=== PATIENT | male | born 1965 | race Two or more races ===

== ENCOUNTER 2021-02-08 22:28 | Inpatient (IN) | payer OTHER, SELFPAY ==
--- NOTE | ~2021-02-08 | XR_ITS ---
EXAMINATION: XR CHEST CLINICAL INFORMATION: Chest pain. COMPARISON: Chest radiograph dated from 04/15/2018. TECHNIQUE: AP view of the chest was obtained. FINDINGS: Unchanged appearance of the cardiomediastinal silhouette. Low lung volumes with bronchovascular crowding and subsegmental atelectasis. No focal consolidation, pleural effusion or pneumothorax. No acute osseous findings. XR/XR chest 1V IMPRESSION: Low lung volumes with bronchovascular crowding and subsegmental atelectasis. No focal infiltrates. No pleural effusions or pneumothorax.
[2021-02-08 22:43] VITALS: BP 144/109; BP 152/110; PULSE 109; PULSE 112; RESP 20; TEMP 36.9; O2SAT 94; O2SAT 98; BMI 54.2
--- NOTE | 2021-02-08 23:09 | ECG_ITS ---
Test Reason : CHEST PAIN Blood Pressure : / mmHG Vent. Rate : 107 BPM Atrial Rate : 107 BPM P-R Int : 150 ms QRS Dur : 110 ms QT Int : 360 ms P-R-T Axes : 043 -14 005 degrees QTc Int : 480 ms Sinus tachycardia Nonspecific T wave abnormality Abnormal ECG When compared with ECG of 07-FEB-2016 05:10, Vent. rate has increased BY 46 BPM T wave inversion less evident in Lateral leads Referred By: Bacilio Sandy Electronically Signed By:KARO ONTIVEROS
--- NOTE | 2021-02-08 23:11 | ED_ITS ---
HPI - Chest Pain General Chief Complaint: Chest Pain Stated Complaint: chest pain Time Seen by Provider: 02/08/21 23:09 History of Present Illness HPI narrative: Patient is a 55-year-old male with a history of diabetes, hypertension, high cholesterol. Positive history of smoking. Previous history of CVA. Presented today with having chest pain that started approximately 1-1/2 hours ago. The pain is dull in [place] to the arm is associated with shortness of breath. No coughing or congestion patient received his coronavirus vaccine over 2 weeks ago. No leg swelling. Positive history of CVA but there is no residual weakness. Patient from home. The pain started when patient was sitting. Denies any diaphoresis. History of similar pain when he was in [facility]. Patient claims he went to a hospital in [place] but he cannot recall the name of the hospital. They might have done a catheterization on him. He is not exactly sure but they put something inside him to take pictures of his heart. No leg swelling. No history of blood clots. No recent travel history. Patient appear s overweight at approximately 147 kilos. Patient is approximately 5 ft 5 in tall. His BMI is over 50. Related Data Allergies Allergy/AdvReac Type Severity Reaction Status Date / Time Penicillins [PCN] Allergy Unknown HIVES Unverified 01/25/20 16:31 Review of Systems Review of Systems: Positive chest pain Positive shortness of breath All systems reviewed otherwise negative [facility] Past Medical History Attestation statement: The following information was validated with the patient. Social History Social History Advance Directives: No Physical Exam Vital Signs: Vital Signs: Last Vital Signs Temp 98.4 F 02/08/21 22:43 Pulse 98 02/09/21 01:02 Resp 13 02/09/21 01:02 BP 135/102 H 02/09/21 01:02 Pulse Ox 93 02/09/21 01:02 Body Mass Index 54.2 Appearance: Alert. Oriented X3. No acute distress. Eyes: Pupils equal, round and reactive to light. ENT: Pharynx normal. Neck: Normal inspection. Neck supple. No lymph nodes noted. No crepitus CVS: Normal heart rate and rhythm. Pulses normal. Normal S1 and S2 Respiratory: No respiratory distress. Breath sounds normal. No Wheezing. No rales Abdomen: Soft and nontender. No rigidity. No distention. good BS x4 Skin: Skin warm and dry. Normal skin color. Normal skin turgor. Extremities: No lower extremity edema. Neurovascular intact to all extremities. No Lacerations. No Rash Neuro: Oriented X 3. No motor deficit. No sensory deficit. Moving all extermities. No slurred speech MDM - Chest Pain MDM Narrative Medical decision making narrative: Multiple cardiac risk factors including diabetes, hypertension, high cholesterol, smoking, previous stroke. Grossly overweight. Positive chest pain . Positive shortness of breath. EKG showed a sinus pattern heart rate was 80 VA QRS QT within normal limits there is nonspecific T-wave flattening noted. There is no old EKG to compare. Given ashley felder's age of 55 multiple cardiac risk factor positive troponin. Patient's heart score is greater than 3. Already given aspirin. Will admit for further evaluation. Currently in stable condition. Differential Diagnosis Differential diagnosis: Likely fracture of rib, pneumothorax, stable angina, unstable angina pectoris, atypical chest pain, st elevation myocardial infarction, costochondritis, chest pain and biliary colic Medical Records Data Attestation: I reviewed the patient's medical records. Lab Data Attestation: I reviewed the patient's lab results. Result diagrams: 02/08/21 23:37 02/08/21 23:37 Labs: Lab Results 02/08/21 02/08/21 02/08/21 Range/Units 23:37 23:37 23:37 WBC 10.2 (4.8-10.8) X10*3/uL RBC 4.88 (4.60-5.80) X10*6/uL Hgb 13.6 L (14.0-18.0) g/dl Hct 43.9 (42-52) % MCV 90.0 (80-98) fL MCH 27.9 (27.0-33.0) pg MCHC 31.0 (31.0-36.0) g/dl RDW 13.4 (11.0-16.0) % Plt Count 216 (160-400) X10*3/uL MPV 11.1 (9.4-12.4) fL Immature Gran % (Auto) 0.4 (0.0-0.4) % Neut % (Auto) 67.2 (45-73) % Lymph % (Auto) 23.3 (20-40) % Marathon % (Auto) 8.7 (2-11) % Eos % (Auto) 0.3 (0-4) % Baso % (Auto) 0.1 (0-2) % Lymph # (Auto) 2.4 (1.2-4.9) X10*3/uL Marathon # (Auto) 0.9 (0.1-1.2) X10*3/uL Eos # (Auto) 0.0 (0.0-0.4) X10*3/uL Baso # (Auto) 0.0 (0.0-0.2) X10*3/uL Abs Immat Gran (auto) 0.04 H (0.00-0.03) X10*3/uL Absolute Neuts (auto) 6.8 (2.0-8.3) X10*3/uL Absolute Nucleated RBC 0.000 (0.0-0.012) X10*3/uL Nucleated RBC % (auto) 0.0 (0.0-0.2) /100WBC Sodium 140 (135-145) mmol/L Potassium 4.3 (3.3-5.1) mmol/L Chloride 105 (96-108) mmol/L Carbon Dioxide 23 (22-29) mmol/L Anion Gap 16 (12-20) BUN 19 H (9-16) mg/dL Creatinine 1.31 (0.5-1.4) mg/dL Estim Creat Clear Calc 86.5 Estimated GFR 57 Random Glucose 325 H (60-115) mg/dL Calcium 9.6 (8.4-10.2) mg/dL Troponin I High Sens 56.0 H* (<3.5-35.0) ng/L Discharge Plan Discharge Clinical Impression: Chest pain Patient Disposition: Admitted As Inpatient
--- NOTE | 2021-02-08 23:20 | PC.NURSE ---
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
[2021-02-08 23:41] LABS: MANUAL DIFF FLAG NO
[2021-02-08 23:42] LABS: Basophils Percent Auto 0.1 % (0-2); Eosinophils Percent Auto 0.3 % (0-4); Hematocrit 43.9 % (42-52); Hemoglobin 13.6 g/dl (14.0-18.0); Imm Gran Abs Auto 0.04 X10*3/uL (0.00-0.03); Imm Gran Pct Auto 0.4 % (0.0-0.4); Lymphocytes Absolute Auto 2.4 X10*3/uL (1.2-4.9); Lymphocytes Percent Auto 23.3 % (20-40); Mean Corpuscular Hemoglobin 27.9 pg (27.0-33.0); Mean Platelet Volume 11.1 fL (9.4-12.4); Monocytes Absolute Auto 0.9 X10*3/uL (0.1-1.2); Monocytes Percent Auto 8.7 % (2-11); Neutrophils Absolute Auto 6.8 X10*3/uL (2.0-8.3); Neutrophils Percent Auto 67.2 % (45-73); Platelet Count 216 X10*3/uL (160-400); Red Blood Count 4.88 X10*6/uL (4.60-5.80); Red Cell Distribution Width 13.4 % (11.0-16.0); White Blood Count 10.2 X10*3/uL (4.8-10.8)
[2021-02-09] VITALS (8 sets, daily range): BP systolic 117–148; BP diastolic 66–102; PULSE 73–98; RESP 11–20; TEMP 36.1–37; O2SAT 93–95; BMI 54.2
[2021-02-09 00:02] LABS: Anion Gap 16 (12-20); Blood Urea Nitrogen 19 mg/dL (9-16); Calcium 9.6 mg/dL (8.4-10.2); Carbon Dioxide 23 mmol/L (22-29); Chloride 105 mmol/L (96-108); Creatinine Clr Calc Pharmacy 86.5; Estimated Glomerular Filt Rate 57; Glucose Random 325 mg/dL (60-115); Potassium 4.3 mmol/L (3.3-5.1); Sodium 140 mmol/L (135-145)
[2021-02-09 01:30] LABS: COVID-19 Test Negative (Negative); IDNOW Serial# 9DD0AD1C
--- NOTE | 2021-02-09 02:35 | PM.IMHP ---
History of Present Illness Date of Service: 02/09/21 Chief Complaint: chest pain 55 year old male morbidly obesse with HTN controlled with Lisinopril,, Diabetes non insulin dependent on oral meds, HLD on no meds, history of CVA no details and has no residual effect, recently got of [facility], and smokes cigaretttes. He presents with chest pain onset the evening of prior day. He describes dull pain that at some point was so severe that he voided on himself. He had associated shortness of breath. No nausea, or diaphoressis, pain radiates to arms. ECG shows non-specific Ts, no old ECGs for comparaison. Initial troponin I is 54. Pain is since given aspirin. He states that he has has had similar eopisode in the past and had work up in [place] but not sure what hospital or what was done Review of Systems Review of Systems: Gen: no fever Resp: no sob, no cough CV: +chest, no DAY, no leg edema GI: No n/v, no abd pain Neuro: No confusion Yes all other systems are reviewed and are negative [facility] Medical History (Updated 02/09/21 @ 02:47 by Bacilio Sandy MD) Diabetes History of CVA (cerebrovascular accident) HTN (hypertension) Morbid obesity Family History (Updated 02/09/21 @ 02:37 by Bacilio Sandy MD) Other CAD (coronary artery disease) Diabetes HTN (hypertension) Pertinent family history: . Social History Advance Directives: No Meds Allergies Allergy/AdvReac Type Severity Reaction Status Date / Time Penicillins [PCN] Allergy Unknown HIVES Unverified 01/25/20 16:31 Active Medications: Current Medications Pharmacy Consult (Consult Rx Perform Med Rec) 1 each MISCELLANE ONCE PRN PRN Reason: Consult order Home Medications Medication Instructions Recorded Confirmed Last Taken Type amitriptyline 50 mg tablet 50 mg PO DAILY 02/09/21 02/09/21 02/08/21 History ertugliflozin 15 mg tablet 15 mg PO QAM 02/09/21 02/09/21 02/08/21 History furosemide 20 mg tablet 20 mg PO DAILY 02/09/21 02/09/21 02/08/21 History glyburide 5 mg tablet 5 mg PO DAILY 02/09/21 02/09/21 02/08/21 History lisinopril 20 mg tablet 20 mg PO DAILY 02/09/21 02/09/21 02/08/21 History Physical Exam Vital Signs and Narrative: Vital Signs: Last Vital Signs Temp 98.4 F 02/08/21 22:43 Pulse 98 02/09/21 01:02 Resp 13 02/09/21 01:02 BP 135/102 H 02/09/21 01:02 Pulse Ox 93 02/09/21 01:02 Body Mass Index 54.2 Constitutional Awake and Alert, No apparent distress HEENT anicteric Neck Supple, No lymphadenopathy Cardiovascular RRR, No M/R/G, S1 S2, No S3 S4, No pedal edema Respiratory Lungs clear, No respiratory distress Gastrointestinal Non tender, Non-distended Skin No rash Neurological Alert & oriented x3 Psychological Appropriate affect Results Labs CBC and Chem 7: 02/08/21 23:37 02/08/21 23:37 Imaging Radiologist's Impressions: Impressions Chest X-Ray 02/08/21 23:09 IMPRESSION: Low lung volumes with bronchovascular crowding and subsegmental atelectasis. No focal infiltrates. No pleural effusions or pneumothorax. Assessment and Plan (1) Unstable angina: Status: Acute 55 year male with morbidly obesse with HTN, HLD, DM here with chest pain and elevated troponin, but no acute ECG changes. 1/ Chest pain--with mild increase in troponin -ASA, metoprolol, and lovenox if next troponin also high -check lipid, and add Statin -Cardiology evaluation for need for further risk strtification 2/ Diabetes--continue glyburide, SSI, 3/ HTN--continue Lisinopril, adding low dose BB 4/ HLD--check lipid 5/ Morbid obesity weight loss encouraged by diet watch and exercise DVT prophylaxis--lovenox Quality Stroke Does the patient have a stroke diagnosis?: No VTE Prior VTE?: No VTE Risk Level:: Medical - moderate - high VTE Device Contraindication: Treatment Not Indicated VTE Drug Contraindication: N/A - Med Ordered
[2021-02-09 04:09] LABS: Troponin-I High Sensitivity 45.7 ng/L (<3.5-35.0)
--- NOTE | 2021-02-09 06:00 | ECG_ITS ---
Test Reason : CHEST PAIN Blood Pressure : / mmHG Vent. Rate : 095 BPM Atrial Rate : 095 BPM P-R Int : 162 ms QRS Dur : 120 ms QT Int : 412 ms P-R-T Axes : 060 -13 -57 degrees QTc Int : 517 ms Normal sinus rhythm Non-specific intra-ventricular conduction delay T wave abnormality, consider anterolateral ischemia Abnormal ECG When compared with ECG of 08-FEB-2021 22:52, T wave inversion now evident in Anterior leads T wave inversion more evident in Lateral leads Referred By: Bacilio Sandy Electronically Signed By:KARO ONTIVEROS
[2021-02-09 07:23] LABS: Glucose, Whole Blood 294 mg/dL (60-115)
[2021-02-09 07:23] LABS: Cholesterol 142 mg/dL; HDL Cholesterol 34 mg/dL; LDL Cholesterol Calculated 83 mg/dl; Triglycerides 129 mg/dL
[2021-02-09] MEDS: Insulin Lispro 100 UNIT/ML 3 ML VIAL SUBCUT ×4 (07:49→21:23)
[2021-02-09] MEDS: Metoprolol Tartrate 25 MG TABLET PO (09:35)
[2021-02-09] MEDS: Enoxaparin Sodium 40 MG/0.4 ML SYRINGE SUBCUT (09:35)
[2021-02-09] MEDS: Aspirin 81 MG TAB.CHEW PO (09:38)
[2021-02-09] MEDS: Atorvastatin Calcium 40 MG TABLET PO ×2 (09:38→21:23)
[2021-02-09] MEDS: lisinopriL 20 MG TABLET PO (09:39)
[2021-02-09] MEDS: Furosemide 20 MG TABLET PO (09:39)
[2021-02-09] MEDS: 0.9 % Sodium Chloride Flush 3 ML SYRINGE IVFLUSH ×3 (09:40→21:24)
[2021-02-09] MEDS: glyBURIDE 5 MG TABLET PO (09:56)
[2021-02-09] MEDS: Amitriptyline HCl 50 MG TABLET PO (09:56)
--- NOTE | 2021-02-09 12:17 | PM.CNCAR ---
History of Present Illness History of Present Illness Date of Service: 02/09/21 Chief complaint: chest pain Narrative: This is a cardiology consultation regarding chest pain. This is a 55-year-old male with a history of hypertension, diabetes, high lipids, history of stroke, smoking, obesity presenting with chest pain. He just recently got [place] [facility] but states was still taking meds even while inside. He also uses drugs and and states that he recently used heroin. Denies any cocaine use. Presentation is chest pain on the left side with and without exertion. No known coronary disease but he has a cardiomyopathy from prior echocardiogram and stress test. Review of Systems Review of Systems: Yes all other systems are reviewed and are negative Cardiovascular: Cardiovascular: Reports as per HPI, Reports no additional cardiovascular complaints, Denies acrocyanosis, Denies cool extremities, Denies painful fingertips, Reports chest pain, Reports chest pain at rest, Denies diaphoresis, Denies syncope, Denies irregular heart rhythm, Denies claudication, Denies leg edema, Denies lightheadedness, Denies palpitations and Denies dyspnea Respiratory: Respiratory: Denies dyspnea Neurologic: Denies syncope Endocrine: Endocrine: Denies palpitations [facility] Past Medical History Medical History (Updated 02/09/21 @ 12:23 by Salo Shankar MD) Diabetes History of CVA (cerebrovascular accident) HTN (hypertension) Morbid obesity Family History Family History (Updated 02/09/21 @ 02:37 by Bacilio Sandy MD) Other CAD (coronary artery disease) Diabetes HTN (hypertension) Social History Social History (Updated 02/09/21 @ 12:29 by Salo Shankar MD) Substance Use Type: Crack/Cocaine and Heroin Advance Directives: No Meds Allergies Allergy/AdvReac Type Severity Reaction Status Date / Time Penicillins [PCN] Allergy Unknown HIVES Unverified 01/25/20 16:31 Active Medications: Current Medications Acetaminophen (Acetaminophen 325 Mg Tablet) 650 mg PO Q6H PRN PRN Reason: Pain, Mild (Pain Scale 1-3) Al Hydroxide/Mg Hydroxide (Magnesium Hydrox/Alum Hydrox 30 Ml Oral.Susp) 30 ml PO Q4H PRN PRN Reason: Heartburn/Nausea Amitriptyline HCl (Amitriptyline Hcl 50 Mg Tablet) 50 mg PO DAILY JAMIE Last Admin: 02/09/21 09:56 Dose: 50 mg Documented by: Aspirin (Aspirin 81 Mg Tab.Chew) 81 mg PO DAILY [facility] Last Admin: 02/09/21 09:38 Dose: 81 mg Documented by: Atorvastatin Calcium (Atorvastatin Calcium 40 Mg Tablet) 40 mg PO BEDTIME [facility] Last Admin: 02/09/21 09:38 Dose: 40 mg Documented by: Enoxaparin Sodium (Enoxaparin Sodium 40 Mg/0.4 Ml Syringe) 40 mg SUBCUT DAILY [facility] Last Admin: 02/09/21 09:35 Dose: 40 mg Documented by: Furosemide (Furosemide 20 Mg Tablet) 20 mg PO DAILY [facility]; Protocol Last Admin: 02/09/21 09:39 Dose: 20 mg Documented by: Glyburide (Glyburide 5 Mg Tablet) 5 mg PO DAILY [facility] Last Admin: 02/09/21 09:56 Dose: 5 mg Documented by: Insulin Human Lispro (Insulin Lispro 100 Unit/Ml 3 Ml Vial) 0 unit SUBCUT QIDACHS [facility]; Protocol Last Admin: 02/09/21 11:55 Dose: 6 unit Documented by: Lisinopril (Lisinopril 20 Mg Tablet) 20 mg PO DAILY [facility]; Protocol Last Admin: 02/09/21 09:39 Dose: 20 mg Documented by: Melatonin (Melatonin 3 Mg Tablet) 6 mg PO BEDTIME PRN PRN Reason: Insomnia Metoprolol Tartrate (Metoprolol Tartrate 25 Mg Tablet) 25 mg PO BID [facility]; Protocol Last Admin: 02/09/21 09:35 Dose: 25 mg Documented by: Non-Formulary Medication (Ertugliflozin) 15 mg PO DAILY [facility] Sodium Chloride (0.9 % Sodium Chloride Flush 3 Ml Syringe) [facility] Last Admin: 02/09/21 09:40 Dose: 3 ml Documented by: Sodium Chloride (0.9 % Sodium Chloride Flush 3 Ml Syringe) [facility] Last Admin: 02/09/21 09:40 Dose: 3 ml Documented by: Home Medications Medication Instructions Recorded Confirmed Last Taken Type amitriptyline 50 mg tablet 50 mg PO DAILY 02/09/21 02/09/21 02/08/21 History ertugliflozin 15 mg tablet 15 mg PO QAM 02/09/21 02/09/21 02/08/21 History furosemide 20 mg tablet 20 mg PO DAILY 02/09/21 02/09/21 02/08/21 History glyburide 5 mg tablet 5 mg PO DAILY 02/09/21 02/09/21 02/08/21 History lisinopril 20 mg tablet 20 mg PO DAILY 02/09/21 02/09/21 02/08/21 History Physical Exam Vital Signs: Vital Signs: Last Vital Signs Temp 98.4 F 02/08/21 22:43 Pulse 82 02/09/21 11:57 Resp 11 L 02/09/21 11:57 BP 127/97 H 02/09/21 11:57 Pulse Ox 93 02/09/21 11:57 Body Mass Index 54.2 Const: General: cooperative and no acute distress HENMT: Other: Unremarkable Neck: Neck: Yes normal visual inspection Chest: Chest palpation & inspection: normal inspection of the chest Resp: Auscultation: wheezes Cardio: Jugular venous distension: no JVD Palpation: normal PMI Heart sounds: S1 normal heart sound present, S2 normal heart sound present, no gallops, no murmurs and no rubs GI: Palpation (GI): Soft to palpation Back/Spine/Pelvis: Other: unremarkable Skin: General skin exam: no rashes or lesions noted Neuro: Cranial nerves: Yes Other cranial nerve findings present Extrem: General: Yes no clubbing, cyanosis or edema Psych: Mental Status: other Results Labs and Meds Result diagrams: 02/08/21 23:37 02/08/21 23:37 Lab results: Laboratory Results - last 24 hr 02/08/21 02/08/21 02/08/21 23:37 23:37 23:37 WBC 10.2 RBC 4.88 Hgb 13.6 L Hct 43.9 MCV 90.0 MCH 27.9 MCHC 31.0 RDW 13.4 Plt Count 216 MPV 11.1 Immature Gran % (Auto) 0.4 Neut % (Auto) 67.2 Lymph % (Auto) 23.3 Anderson % (Auto) 8.7 Eos % (Auto) 0.3 Baso % (Auto) 0.1 Lymph # (Auto) 2.4 Anderson # (Auto) 0.9 Eos # (Auto) 0.0 Baso # (Auto) 0.0 Abs Immat Gran (auto) 0.04 H Absolute Neuts (auto) 6.8 Absolute Nucleated RBC 0.000 Nucleated RBC % (auto) 0.0 Sodium 140 Potassium 4.3 Chloride 105 Carbon Dioxide 23 Anion Gap 16 BUN 19 H Creatinine 1.31 Estim Creat Clear Calc 86.5 Estimated GFR 57 POC Glucose Random Glucose 325 H Calcium 9.6 Troponin I High Sens 56.0 H* Triglycerides Cholesterol LDL Cholesterol, Calc HDL Cholesterol COVID-19 ([facility]) COVID-19 Clin Com 02/09/21 02/09/21 02/09/21 01:04 03:44 06:48 WBC RBC Hgb Hct MCV MCH MCHC RDW Plt Count MPV Immature Gran % (Auto) Neut % (Auto) Lymph % (Auto) Anderson % (Auto) Eos % (Auto) Baso % (Auto) Lymph # (Auto) Anderson # (Auto) Eos # (Auto) Baso # (Auto) Abs Immat Gran (auto) Absolute Neuts (auto) Absolute Nucleated RBC Nucleated RBC % (auto) Sodium Potassium Chloride Carbon Dioxide Anion Gap BUN Creatinine Estim Creat Clear Calc Estimated GFR POC Glucose Random Glucose Calcium Troponin I High Sens 45.7 H* Triglycerides 129 Cholesterol 142 LDL Cholesterol, Calc 83 HDL Cholesterol 34 COVID-19 ([facility]) Negative COVID-19 Clin Com See Note 02/09/21 07:19 WBC RBC Hgb Hct MCV MCH MCHC RDW Plt Count MPV Immature Gran % (Auto) Neut % (Auto) Lymph % (Auto) Anderson % (Auto) Eos % (Auto) Baso % (Auto) Lymph # (Auto) Anderson # (Auto) Eos # (Auto) Baso # (Auto) Abs Immat Gran (auto) Absolute Neuts (auto) Absolute Nucleated RBC Nucleated RBC % (auto) Sodium Potassium Chloride Carbon Dioxide Anion Gap BUN Creatinine Estim Creat Clear Calc Estimated GFR POC Glucose 294 H Random Glucose Calcium Troponin I High Sens Triglycerides Cholesterol LDL Cholesterol, Calc HDL Cholesterol COVID-19 ([facility]) COVID-19 Clin Com ECG Interpretation: EKG with sinus rhythm at 95/Min; inverted T-waves across the precordial leads. Could be from hypertension. Ischemia cannot be excluded. This was seen before. Imaging Radiologist's impression: Impressions Chest X-Ray 02/08/21 23:09 IMPRESSION: Low lung volumes with bronchovascular crowding and subsegmental atelectasis. No focal infiltrates. No pleural effusions or pneumothorax. Assessment and Plan (1) Chest pain: Status: Acute (2) NICM (nonischemic cardiomyopathy): Status: Acute (3) Morbid obesity: Status: Acute (4) Essential hypertension: Status: Acute (5) Type 2 diabetes mellitus with unspecified complications: Status: Acute Order cardiac studies reviewed. Echocardiogram in 2016 had shown LVEF of 30-35%. Myocardial perfusion imaging study at that time did not show any ischemia. Currently, hs troponins are 56 and 47. In the past, tox screen was positive for cocaine, but denies using it and states he only heroin. We can recheck a tox screen. Echocardiogram tomorrow. If continues to cocaine +ve, then unable to use beta blockers. In that case, can start Norvasc for BP. Had uncontrolled diastolic BP on arrival. Previous ischemia work up negative. If continued symptoms after control of BP, drug avoidance, then could consider repeating. Procedures Date of Service Date of Service: 02/09/21
[2021-02-09 13:33] LABS: Glucose, Whole Blood 297 mg/dL (60-115)
--- NOTE | 2021-02-09 14:29 | PM.EVENT ---
Event Note Date of Service: 02/09/21 Event Note: day hospitalist update S ongoing chest pressure, moderate, L-sided, nonradiating O BP 127/97 P 82 R 11 SaO2 93 on RA gen NAD lungs CTAB CV RRR no m/r/g abd soft/NT/obese ext no edema neuro chronic L-sided weakness A/P 55yo M with DM2, HTN, HLD, prior CVA, obesity presenting with chest pain, mildly increased troponin # chest pain - ASA, metoprolol, statin - Cardiology consulted, TTE - Utox, if cocaine positive [was in 2019], d/c B-laura # HTN - lisinopril, metoprolol # HLD - statin # DM2 - glyburide, correction-dose lispro # morbid obesity - weight loss # VTE ppx - LMWH
[2021-02-09 16:14] LABS: Glucose, Whole Blood 256 mg/dL (60-115)
[2021-02-09 17:48] LABS: Amphetamine Screen Urine Not Detected (Not Detect); Barbiturates, Urine Not Detected (Not Detect); Benzodiazepines Screen Urine Not Detected (Not Detect); Cannabinoid Screen Urine Not Detected (Not Detect); Cocaine Screen Urine POSITIVE (Not Detect); Fentanyl, urine POSITIVE (Not Detect); Opiate Screen Urine POSITIVE (Not Detect); Phencyclidine Screen Urine Not Detected (Not Detect)
--- NOTE | 2021-02-09 19:24 | MHC.CARE ---
CARE team consult received. Recovery support team will be notified and meet with patient on Wednesday.
[2021-02-09 20:00] LABS: Glucose, Whole Blood 297 mg/dL (60-115)
[2021-02-09] MEDS: Acetaminophen 325 MG TABLET 650 MG PO (21:23)
[2021-02-09] MEDS: Melatonin 3 MG TABLET 6 MG PO (21:23)
[2021-02-10] VITALS (8 sets, daily range): BP systolic 101–137; BP diastolic 54–76; PULSE 74–96; RESP 17–22; TEMP 36.2–37; O2SAT 91–96
[2021-02-10 03:40] LABS: Estimated Average Glucose 295 mg/dL; Hemoglobin A1c % 11.9 %
[2021-02-10 07:42] LABS: Glucose, Whole Blood 219 mg/dL (60-115)
[2021-02-10] MEDS: Aspirin 81 MG TAB.CHEW PO (08:16)
[2021-02-10] MEDS: Amitriptyline HCl 50 MG TABLET PO (08:16)
[2021-02-10] MEDS: Furosemide 20 MG TABLET PO (08:16)
[2021-02-10] MEDS: lisinopriL 20 MG TABLET PO (08:16)
[2021-02-10] MEDS: Enoxaparin Sodium 40 MG/0.4 ML SYRINGE SUBCUT (08:16)
[2021-02-10] MEDS: 0.9 % Sodium Chloride Flush 3 ML SYRINGE IVFLUSH ×3 (08:17→21:16)
[2021-02-10] MEDS: Insulin Lispro 100 UNIT/ML 3 ML VIAL SUBCUT ×4 (08:17→21:15)
[2021-02-10] MEDS: glyBURIDE 5 MG TABLET PO (08:18)
--- NOTE | 2021-02-10 09:45 | MHC.CM.PN ---
Addendum entered by Aliya Darnell 02/10/21 11:16: [place] [facility] [place] IS WHERE THE PATIENT HAS BEEN STAYING. Office [address] [facility] [phone]. [address] FOR TRANSPORT [address] Addendum entered by Aliya Darnell 02/10/21 10:19: A HCP IS DOCUMENTED 01/2016, KRYSTEN ABERNATHY [phone] Original Note: Male 55 dx Chest pain. @ admission the patient was interviewed by this instructional writer. A stonemason helper was used to communicate. He was seen for the purpose of discharge planning. He is A+OX3. Patient reports that [facility], and was dropped off @ a [facility]p in [place]. He does not have contact info for usp. A call was placed to [facility]. A detailed VM was left for a hotel valet attendant, Sherri Olivares. [facility] CM contact info provided for [facility]. He reports using a walker. He declined info re HCP. Care team consult anticipated today. Alerted janitorial cleaner of patient and care team consult. CM will follow.
--- NOTE | 2021-02-10 10:19 | P.PNIM_ITS ---
Subjective Subjective Date of Service: 02/10/21 Interval History: ongoing chest pain 12/17- pressure-type did not deliberately use cocaine but heroin may have been contaminated agreeable to go on Suboxone Review of Systems Review of Systems: Yes all other systems are reviewed and are negative Physical Exam Vital Signs: Vital Signs: Last Vital Signs Temp 98.6 F 02/10/21 07:36 Pulse 74 02/10/21 08:16 Resp 22 H 02/10/21 07:36 BP 124/58 L 02/10/21 08:16 Pulse Ox 96 02/10/21 07:36 Body Mass Index 54.2 Gen: in no acute distress HEENT: sclera anicteric, moist mucus membranes Neck: supple Lungs: clear to auscultation bilaterally Heart: regular rate and rhythm, no murmurs Abd: soft, morbidly obese, non-tender, non-distended Ext: no edema Skin: warm/well-perfused Neuro: alert and oriented x3, L side weak from prior CVA Psych: appropriate affect Objective Data Active Medications Acetaminophen (Acetaminophen 325 Mg Tablet) 650 mg PO Q6H PRN PRN Reason: Pain, Mild (Pain Scale 1-3) Last Admin: 02/09/21 21:23 Dose: 650 mg Documented by: JEFERSON Al Hydroxide/Mg Hydroxide (Magnesium Hydrox/Alum Hydrox 30 Ml Oral.Susp) 30 ml PO Q4H PRN PRN Reason: Heartburn/Nausea Amitriptyline HCl (Amitriptyline Hcl 50 Mg Tablet) 50 mg PO DAILY [facility] Last Admin: 02/10/21 08:16 Dose: 50 mg Documented by: MURIEL Aspirin (Aspirin 81 Mg Tab.Chew) 81 mg PO DAILY [facility] Last Admin: 02/10/21 08:16 Dose: 81 mg Documented by: MURIEL Atorvastatin Calcium (Atorvastatin Calcium 40 Mg Tablet) 40 mg PO BEDTIME [facility] Last Admin: 02/09/21 21:23 Dose: 40 mg Documented by: JEFERSON Diltiazem HCl (Diltiazem Hcl 30 Mg Tablet) 30 mg PO QID [facility]; Protocol Enoxaparin Sodium (Enoxaparin Sodium 40 Mg/0.4 Ml Syringe) 40 mg SUBCUT DAILY [facility] Last Admin: 02/10/21 08:16 Dose: 40 mg Documented by: MURIEL Furosemide (Furosemide 20 Mg Tablet) 20 mg PO DAILY [facility]; Protocol Last Admin: 02/10/21 08:16 Dose: 20 mg Documented by: MURIEL Glyburide (Glyburide 5 Mg Tablet) 5 mg PO DAILY [facility] Last Admin: 02/10/21 08:18 Dose: 5 mg Documented by: MURIEL Insulin Human Lispro (Insulin Lispro 100 Unit/Ml 3 Ml Vial) 0 unit SUBCUT QIDACHS [facility]; Protocol Last Admin: 02/10/21 08:17 Dose: 4 unit Documented by: MURIEL Lisinopril (Lisinopril 20 Mg Tablet) 20 mg PO DAILY [facility]; Protocol Last Admin: 02/10/21 08:16 Dose: 20 mg Documented by: MURIEL Melatonin (Melatonin 3 Mg Tablet) 6 mg PO BEDTIME PRN PRN Reason: Insomnia Last Admin: 02/09/21 21:23 Dose: 6 mg Documented by: JEFERSON Non-Formulary Medication (Ertugliflozin) 15 mg PO DAILY [facility] Sodium Chloride (0.9 % Sodium Chloride Flush 3 Ml Syringe) 3 ml IVFLUSH QSHIFT [facility] Last Admin: 02/10/21 08:17 Dose: 3 ml Documented by: MURIEL Sodium Chloride (0.9 % Sodium Chloride Flush 3 Ml Syringe) 3 ml IVFLUSH [facility] Last Admin: 02/10/21 08:18 Dose: Not Given Documented by: MURIEL Non-Admin Reason: Duplicate Order Labs CBC & Chem 7: 02/08/21 23:37 02/08/21 23:37 Labs: Laboratory Results - last 24 hr 02/08/21 02/09/21 02/09/21 23:37 11:51 16:08 POC Glucose 297 H 256 H Estimat Average Glucose 295 Hemoglobin A1c % 11.9 Urine Opiates Screen Urine Fentanyl Screen Ur Barbiturates Screen Ur Phencyclidine Scrn Ur Amphetamines Screen U Benzodiazepines Scrn Urine Cocaine Screen U Marijuana (THC) Screen 02/09/21 02/09/21 02/10/21 16:31 19:54 07:19 POC Glucose 297 H 219 H Estimat Average Glucose Hemoglobin A1c % Urine Opiates Screen POSITIVE H Urine Fentanyl Screen POSITIVE H Ur Barbiturates Screen Not Detected Ur Phencyclidine Scrn Not Detected Ur Amphetamines Screen Not Detected U Benzodiazepines Scrn Not Detected Urine Cocaine Screen POSITIVE H U Marijuana (THC) Screen Not Detected Assessment and Plan (1) Chest pain: Status: Acute Assessment and Plan: hospital d#2 55yo M with DM2, HTN, HLD, prior CVA, NICM LVEF of 30-35% in 2016 with negative ischemic workup) obesity presenting with chest pain, mildly increased troponin Utox positive for fentanyl+ cocaine # cocaine-induced chest pain # NICM - Cardiology consulted - continue ASA, statin, stopped b-laura and will start diltiazem for relief of pain; prn NTG - TTE pending # HTN - lisinopril; d/c'ed metoprolol # HLD - statin # uncontrolled DM2, A1c 11.9 - glyburide, correction-dose lispro; will start basal glargine insulin; also on ertugliozin as outpt # morbid obesity - t/c outpt bariatrics evaluation # VTE ppx - LMWH # dispo - anticipate home after relief of pain, cardiac workup Quality Stroke Does the patient have a stroke diagnosis?: No VTE Prior VTE?: No VTE Risk Level:: Medical - moderate - high VTE Device Contraindication: Treatment Not Indicated VTE Drug Contraindication: N/A - Med Ordered
[2021-02-10] MEDS: Insulin Glargine,Hum.rec.anlog 100 UNIT/ML 10 ML VIAL 20 UNIT SUBCUT (11:17)
[2021-02-10] MEDS: Nitroglycerin 0.4 MG TAB.SUBL SUBLINGUAL (11:18)
[2021-02-10 11:36] LABS: HBS Num1 1.52 mIU/mL (0-7.99); HBc Num1 10.86 S/CO (0.00-0.79); HIV AB/AG Nonreactive (Nonreactive); ~Hepatitis B Surface Antibody NONREACTIVE (Nonreactive)
[2021-02-10 11:39] LABS: Glucose, Whole Blood 292 mg/dL (60-115)
[2021-02-10 11:39] LABS: HBsAGNum1 0.25 S/CO (0.00-0.99); Hepatitis B Surface Antigen Negative (Negative); ~HepC Num1 0.15 S/CO (0.00-0.79); ~Hepatitis C Antibody Nonreactive (Nonreactive)
--- NOTE | 2021-02-10 12:13 | P.PNCA_ITS ---
Subjective Subjective Date of Service: 02/10/21 Interval history: Saying his breathing is okay. Still has some chest pain. Pain is reproducible over the left chest wall. Review of Systems Review of Systems Reproducible chest pain Physical Exam Vital Signs: Last Vital Signs Temp 98.5 F 02/10/21 11:43 Pulse 96 02/10/21 11:43 Resp 22 H 02/10/21 11:43 BP 119/54 L 02/10/21 11:43 Pulse Ox 91 L 02/10/21 11:43 Body Mass Index 54.2 GENERAL APPEARANCE: in no acute distress. morbid obesity. NECK: no carotid bruit, no jugular venous distention. SKIN: no suspicious lesions, warm and dry. HEART: no murmurs, regular rate and rhythm. LUNGS: clear to auscultation bilaterally. ABDOMEN: soft, nontender. EXTREMITIES: no edema. PERIPHERAL PULSES: equal. NEUROLOGIC: No gross deficits, AAO X 3 Results Labs and Meds Result diagrams: 02/08/21 23:37 02/08/21 23:37 Lab results: Laboratory Results - last 24 hr 02/08/21 02/09/21 02/09/21 23:37 11:51 16:08 POC Glucose 297 H 256 H Estimat Average Glucose 295 Hemoglobin A1c % 11.9 Urine Opiates Screen Urine Fentanyl Screen Ur Barbiturates Screen Ur Phencyclidine Scrn Ur Amphetamines Screen U Benzodiazepines Scrn Urine Cocaine Screen U Marijuana (THC) Screen Hep Bs Antigen Hep Bs Antibody Hepatitis C Ab (EIA) HIV 1&2 Ab/P24 Ag 4thGn 02/09/21 02/09/21 02/10/21 16:31 19:54 07:19 POC Glucose 297 H 219 H Estimat Average Glucose Hemoglobin A1c % Urine Opiates Screen POSITIVE H Urine Fentanyl Screen POSITIVE H Ur Barbiturates Screen Not Detected Ur Phencyclidine Scrn Not Detected Ur Amphetamines Screen Not Detected U Benzodiazepines Scrn Not Detected Urine Cocaine Screen POSITIVE H U Marijuana (THC) Screen Not Detected Hep Bs Antigen Hep Bs Antibody Hepatitis C Ab (EIA) HIV 1&2 Ab/P24 Ag 4thGn 02/10/21 02/10/21 10:47 11:24 POC Glucose 292 H Estimat Average Glucose Hemoglobin A1c % Urine Opiates Screen Urine Fentanyl Screen Ur Barbiturates Screen Ur Phencyclidine Scrn Ur Amphetamines Screen U Benzodiazepines Scrn Urine Cocaine Screen U Marijuana (THC) Screen Hep Bs Antigen Negative Hep Bs Antibody NONREACTIVE Hepatitis C Ab (EIA) Nonreactive HIV 1&2 Ab/P24 Ag 4thGn Nonreactive Progress Note: A&P Assessment and plan (1) NICM (nonischemic cardiomyopathy): Status: Acute (2) Chest pain: Status: Acute Assessment and Plan: 55-year-old gentleman reports substance abuse who is presenting with chest pain. Chest pain is reproducible over the left chest wall. High sensitivity troponin level was 56 and 45. He has known nonischemic cardiomyopathy. Due to cocaine use is beta-laura has been stopped. Given low ejection fraction I would not use diltiazem. Agree with lisinopril 20 mg once a day. Clinically he is feeling better otherwise. I do not think he needs further inpatient workup. Will review echocardiogram once it is done. Thank you for allowing me to participate in the care of your patient. Please feel free to contact me if you have any questions. Fall Risk Details Current Medications: Current Medications Acetaminophen (Acetaminophen 325 Mg Tablet) 650 mg PO Q6H PRN PRN Reason: Pain, Mild (Pain Scale 1-3) Last Admin: 02/09/21 21:23 Dose: 650 mg Documented by: Al Hydroxide/Mg Hydroxide (Magnesium Hydrox/Alum Hydrox 30 Ml Oral.Susp) 30 ml PO Q4H PRN PRN Reason: Heartburn/Nausea Amitriptyline HCl (Amitriptyline Hcl 50 Mg Tablet) 50 mg PO DAILY [facility] Last Admin: 02/10/21 08:16 Dose: 50 mg Documented by: Aspirin (Aspirin 81 Mg Tab.Chew) 81 mg PO DAILY [facility] Last Admin: 02/10/21 08:16 Dose: 81 mg Documented by: Atorvastatin Calcium (Atorvastatin Calcium 40 Mg Tablet) 40 mg PO BEDTIME [facility] Last Admin: 02/09/21 21:23 Dose: 40 mg Documented by: Diltiazem HCl (Diltiazem Hcl 30 Mg Tablet) 30 mg PO QID [facility]; Protocol Enoxaparin Sodium (Enoxaparin Sodium 40 Mg/0.4 Ml Syringe) 40 mg SUBCUT DAILY [facility] Last Admin: 02/10/21 08:16 Dose: 40 mg Documented by: Furosemide (Furosemide 20 Mg Tablet) 20 mg PO DAILY [facility]; Protocol Last Admin: 02/10/21 08:16 Dose: 20 mg Documented by: Glyburide (Glyburide 5 Mg Tablet) 5 mg PO DAILY [facility] Last Admin: 02/10/21 08:18 Dose: 5 mg Documented by: Insulin Glargine (Insulin Glargine,Hum.Rec.Anlog 100 Unit/Ml 10 Ml Vial) 20 uni t SUBCUT DAILY [facility] Last Admin: 02/10/21 11:17 Dose: 20 unit Documented by: Insulin Human Lispro (Insulin Lispro 100 Unit/Ml 3 Ml Vial) 0 unit SUBCUT QIDACHS [facility]; Protocol Last Admin: 02/10/21 11:59 Dose: 6 unit Documented by: Lisinopril (Lisinopril 20 Mg Tablet) 20 mg PO DAILY [facility]; Protocol Last Admin: 02/10/21 08:16 Dose: 20 mg Documented by: Melatonin (Melatonin 3 Mg Tablet) 6 mg PO BEDTIME PRN PRN Reason: Insomnia Last Admin: 02/09/21 21:23 Dose: 6 mg Documented by: Nitroglycerin (Nitroglycerin 0.4 Mg Tab.Subl) 0.4 mg SUBLINGUAL [id number] PRN PRN Reason: chest pain Last Admin: 02/10/21 11:18 Dose: 0.4 mg Documented by: Non-Formulary Medication (Ertugliflozin) 15 mg PO DAILY [facility] Sodium Chloride (0.9 % Sodium Chloride Flush 3 Ml Syringe) [facility] Last Admin: 02/10/21 08:17 Dose: 3 ml Documented by: Sodium Chloride (0.9 % Sodium Chloride Flush 3 Ml Syringe) 3 ml IVFLUSH [facility] Last Admin: 02/10/21 08:18 Dose: Not Given Documented by: Time Spent With Patient Time: Total time spent is greater than 50% in coordination of care (as documented) at patient's floor/unit and/or counseling patient: Time with patient: 15 - 24 minutes Progress Note: Quality Stroke Does the patient have a stroke diagnosis?: No Procedures Date of Service Date of Service: 02/10/21
[2021-02-10 12:35] LABS: HBc Num2 10.38 S/CO; HBc Num3 10.09 S/CO; Hepatitis B Core Antibody Reactive (Nonreactive)
[2021-02-10 16:23] LABS: Glucose, Whole Blood 317 mg/dL (60-115)
--- NOTE | 2021-02-10 16:56 | HO.ADDICTCON ---
History of Present Illness Date of Service: 02/10/21 Chief Complaint: chest pain Reason for Consult: Recent opioid use, cocaine use, interested in suboxone. Requesting physician: Trevon Vega Discussed with referring provider: Yes Sources of Information: patient interviewed and chart reviewed HPI Narrative: Patient is a 55-year-old male recently released from [facility], reports was receiving Suboxone 8 mg-2 mg SL when goal daily for the past year. He reports that when he was discharged he was sent to [facility]. Reports that when he went to get Suboxone script filled pharmacy was closed, so he proceeded to buy 2 bags of what he thought was heroin. He reports that he was unaware that they are worse that not all and cocaine mixed in. He is requesting that he be resumed back on his Suboxone dosing. He states his last use was 02/08/2021 at 09:00 when he used 1 bag, and following back was the same day at 10:00. He does endorse opioid withdrawal symptoms of generalized body aches and malaise, sweating, stuffy nose, gooseflesh on arms. Past Psychiatric History: Patient denies IP LOC, reports went to detox 1 time approximately 5-6 years ago at [facility], and left after 1 day. Medical Evaluation Reviewed: Yes Personal & Social History: Patient reports he was incarcerated for the past 2 years, has been discharged to a retirement in [place]. Diagnostics Vital Signs (24Hr): Vital Signs - 24 hr 02/09/21 19:00 02/09/21 22:50 02/10/21 03:35 Temperature 96.9 F 98.6 F 97.4 F Pulse Rate 73 81 74 Respiratory Rate 20 20 17 Blood Pressure 117/80 121/74 137/76 Pulse Oximetry 95 94 95 02/10/21 07:36 02/10/21 08:16 02/10/21 11:18 Temperature 98.6 F Pulse Rate 74 74 74 Respiratory Rate 22 H Blood Pressure 124/58 L 124/58 L 124/58 L Pulse Oximetry 96 02/10/21 11:43 02/10/21 15:13 Temperature 98.5 F 97.1 F Pulse Rate 96 80 Respiratory Rate 22 H 20 Blood Pressure 119/54 L 116/64 Pulse Oximetry 91 L 96 Body Mass Index 54.2 Labs Results: 02/08/21 23:37 02/08/21 23:37 Labs: Laboratory Results - last 48 hr 02/08/21 02/08/21 02/08/21 23:37 23:37 23:37 WBC 10.2 RBC 4.88 Hgb 13.6 L Hct 43.9 MCV 90.0 MCH 27.9 MCHC 31.0 RDW 13.4 Plt Count 216 MPV 11.1 Immature Gran % (Auto) 0.4 Neut % (Auto) 67.2 Lymph % (Auto) 23.3 [place] % (Auto) 8.7 Eos % (Auto) 0.3 Baso % (Auto) 0.1 Lymph # (Auto) 2.4 [place] # (Auto) 0.9 Eos # (Auto) 0.0 Baso # (Auto) 0.0 Abs Immat Gran (auto) 0.04 H Absolute Neuts (auto) 6.8 Absolute Nucleated RBC 0.000 Nucleated RBC % (auto) 0.0 Sodium 140 Potassium 4.3 Chloride 105 Carbon Dioxide 23 Anion Gap 16 BUN 19 H Creatinine 1.31 Estim Creat Clear Calc 86.5 Estimated GFR 57 POC Glucose Random Glucose 325 H Estimat Average Glucose Hemoglobin A1c % Calcium 9.6 Troponin I High Sens 56.0 H* Triglycerides Cholesterol LDL Cholesterol, Calc HDL Cholesterol Urine Opiates Screen Urine Fentanyl Screen Ur Barbiturates Screen Ur Phencyclidine Scrn Ur Amphetamines Screen U Benzodiazepines Scrn Urine Cocaine Screen U Marijuana (THC) Screen COVID-19 (YOHAN) COVID-19 Clin Com Hep Bs Antigen Hep Bs Antibody Hep B Core Total Ab Hepatitis C Ab (EIA) HIV 1&2 Ab/P24 Ag 4thGn 02/08/21 02/09/21 02/09/21 23:37 01:04 03:44 WBC RBC Hgb Hct MCV MCH MCHC RDW Plt Count MPV Immature Gran % (Auto) Neut % (Auto) Lymph % (Auto) [place] % (Auto) Eos % (Auto) Baso % (Auto) Lymph # (Auto) [place] # (Auto) Eos # (Auto) Baso # (Auto) Abs Immat Gran (auto) Absolute Neuts (auto) Absolute Nucleated RBC Nucleated RBC % (auto) Sodium Potassium Chloride Carbon Dioxide Anion Gap BUN Creatinine Estim Creat Clear Calc Estimated GFR POC Glucose Random Glucose Estimat Average Glucose 295 Hemoglobin A1c % 11.9 Calcium Troponin I High Sens 45.7 H* Triglycerides Cholesterol LDL Cholesterol, Calc HDL Cholesterol Urine Opiates Screen Urine Fentanyl Screen Ur Barbiturates Screen Ur Phencyclidine Scrn Ur Amphetamines Screen U Benzodiazepines Scrn Urine Cocaine Screen U Marijuana (THC) Screen COVID-19 (YOHAN) Negative COVID-19 Clin Com See Note Hep Bs Antigen Hep Bs Antibody Hep B Core Total Ab Hepatitis C Ab (EIA) HIV 1&2 Ab/P24 Ag 4thGn 02/09/21 02/09/21 02/09/21 06:48 07:19 11:51 WBC RBC Hgb Hct MCV MCH MCHC RDW Plt Count MPV Immature Gran % (Auto) Neut % (Auto) Lymph % (Auto) [place] % (Auto) Eos % (Auto) Baso % (Auto) Lymph # (Auto) [place] # (Auto) Eos # (Auto) Baso # (Auto) Abs Immat Gran (auto) Absolute Neuts (auto) Absolute Nucleated RBC Nucleated RBC % (auto) Sodium Potassium Chloride Carbon Dioxide Anion Gap BUN Creatinine Estim Creat Clear Calc Estimated GFR POC Glucose 294 H 297 H Random Glucose Estimat Average Glucose Hemoglobin A1c % Calcium Troponin I High Sens Triglycerides 129 Cholesterol 142 LDL Cholesterol, Calc 83 HDL Cholesterol 34 Urine Opiates Screen Urine Fentanyl Screen Ur Barbiturates Screen Ur Phencyclidine Scrn Ur Amphetamines Screen U Benzodiazepines Scrn Urine Cocaine Screen U Marijuana (THC) Screen COVID-19 (YOHAN) COVID-19 Clin Com Hep Bs Antigen Hep Bs Antibody Hep B Core Total Ab Hepatitis C Ab (EIA) HIV 1&2 Ab/P24 Ag 4thGn 02/09/21 02/09/21 02/09/21 16:08 16:31 19:54 WBC RBC Hgb Hct MCV MCH MCHC RDW Plt Count MPV Immature Gran % (Auto) Neut % (Auto) Lymph % (Auto) [place] % (Auto) Eos % (Auto) Baso % (Auto) Lymph # (Auto) [place] # (Auto) Eos # (Auto) Baso # (Auto) Abs Immat Gran (auto) Absolute Neuts (auto) Absolute Nucleated RBC Nucleated RBC % (auto) Sodium Potassium Chloride Carbon Dioxide Anion Gap BUN Creatinine Estim Creat Clear Calc Estimated GFR POC Glucose 256 H 297 H Random Glucose Estimat Average Glucose Hemoglobin A1c % Calcium Troponin I High Sens Triglycerides Cholesterol LDL Cholesterol, Calc HDL Cholesterol Urine Opiates Screen POSITIVE H Urine Fentanyl Screen POSITIVE H Ur Barbiturates Screen Not Detected Ur Phencyclidine Scrn Not Detected Ur Amphetamines Screen Not Detected U Benzodiazepines Scrn Not Detected Urine Cocaine Screen POSITIVE H U Marijuana (THC) Screen Not Detected COVID-19 (YOHAN) COVID-19 Clin Com Hep Bs Antigen Hep Bs Antibody Hep B Core Total Ab Hepatitis C Ab (EIA) HIV 1&2 Ab/P24 Ag 4thGn 02/10/21 02/10/21 02/10/21 07:19 10:47 11:24 WBC RBC Hgb Hct MCV MCH MCHC RDW Plt Count MPV Immature Gran % (Auto) Neut % (Auto) Lymph % (Auto) [place] % (Auto) Eos % (Auto) Baso % (Auto) Lymph # (Auto) [place] # (Auto) Eos # (Auto) Baso # (Auto) Abs Immat Gran (auto) Absolute Neuts (auto) Absolute Nucleated RBC Nucleated RBC % (auto) Sodium Potassium Chloride Carbon Dioxide Anion Gap BUN Creatinine Estim Creat Clear Calc Estimated GFR POC Glucose 219 H 292 H Random Glucose Estimat Average Glucose Hemoglobin A1c % Calcium Troponin I High Sens Triglycerides Cholesterol LDL Cholesterol, Calc HDL Cholesterol Urine Opiates Screen Urine Fentanyl Screen Ur Barbiturates Screen Ur Phencyclidine Scrn Ur Amphetamines Screen U Benzodiazepines Scrn Urine Cocaine Screen U Marijuana (THC) Screen COVID-19 (YOHAN) COVID-19 Clin Com Hep Bs Antigen Negative Hep Bs Antibody NONREACTIVE Hep B Core Total Ab Reactive Hepatitis C Ab (EIA) Nonreactive HIV 1&2 Ab/P24 Ag 4thGn Nonreactive 02/10/21 16:09 WBC RBC Hgb Hct MCV MCH MCHC RDW Plt Count MPV Immature Gran % (Auto) Neut % (Auto) Lymph % (Auto) [place] % (Auto) Eos % (Auto) Baso % (Auto) Lymph # (Auto) [place] # (Auto) Eos # (Auto) Baso # (Auto) Abs Immat Gran (auto) Absolute Neuts (auto) Absolute Nucleated RBC Nucleated RBC % (auto) Sodium Potassium Chloride Carbon Dioxide Anion Gap BUN Creatinine Estim Creat Clear Calc Estimated GFR POC Glucose 317 H Random Glucose Estimat Average Glucose Hemoglobin A1c % Calcium Troponin I High Sens Triglycerides Cholesterol LDL Cholesterol, Calc HDL Cholesterol Urine Opiates Screen Urine Fentanyl Screen Ur Barbiturates Screen Ur Phencyclidine Scrn Ur Amphetamines Screen U Benzodiazepines Scrn Urine Cocaine Screen U Marijuana (THC) Screen COVID-19 (YOHAN) COVID-19 Clin Com Hep Bs Antigen Hep Bs Antibody Hep B Core Total Ab Hepatitis C Ab (EIA) HIV 1&2 Ab/P24 Ag 4thGn Imaging Radiology Impressions: ITS Impressions Chest X-Ray 02/08/21 23:09 IMPRESSION: Low lung volumes with bronchovascular crowding and subsegmental atelectasis. No focal infiltrates. No pleural effusions or pneumothorax. Mental Status Exam Mental Status Exam Narrative: Obese male, lying in bed. Alert and oriented. Georgian speaking. Patient Appearance: Fatigued and Appropriate Patient Orientation: Person, Place, Time and Situation Level of Consciousness: Awake, Appropriate and Alert Patient Behavior: Appropriate and Cooperative Mood Description: Appropriate and Anxious Affect Description: Appropriate and Anxious Patient Cognition Impaired: No Ability to Follow Directions: Excellent Speech Pattern: Clear, Appropriate and Coherent Memory Description: Intact Hallucinations: None Delusions: Not Present Thought Process: Intact, Goal Oriented and Linear Thought Content: positive for Intact, positive for Goal Oriented and positive for Linear Judgement: Fair Medications Medications Current Medications Acetaminophen (Acetaminophen 325 Mg Tablet) 650 mg PO Q6H PRN PRN Reason: Pain, Mild (Pain Scale 1-3) Last Admin: 02/09/21 21:23 Dose: 650 mg Documented by: Al Hydroxide/Mg Hydroxide (Magnesium Hydrox/Alum Hydrox 30 Ml Oral.Susp) 30 ml PO Q4H PRN PRN Reason: Heartburn/Nausea Amitriptyline HCl (Amitriptyline Hcl 50 Mg Tablet) 50 mg PO DAILY [facility] Last Admin: 02/10/21 08:16 Dose: 50 mg Documented by: Aspirin (Aspirin 81 Mg Tab.Chew) 81 mg PO DAILY [facility] Last Admin: 02/10/21 08:16 Dose: 81 mg Documented by: Atorvastatin Calcium (Atorvastatin Calcium 40 Mg Tablet) 40 mg PO BEDTIME [facility] Last Admin: 02/09/21 21:23 Dose: 40 mg Documented by: Buprenorphine/Naloxone (Buprenorphine/Naloxone 4/1 Mg Film) 1 film SUBLINGUAL ONCE ONE Stop: 02/10/21 21:01 Buprenorphine/Naloxone (Buprenorphine/Naloxone 8/2 Mg Film) 1 film SUBLINGUAL DAILY [facility] Enoxaparin Sodium (Enoxaparin Sodium 40 Mg/0.4 Ml Syringe) 40 mg SUBCUT DAILY [facility] Last Admin: 02/10/21 08:16 Dose: 40 mg Documented by: Furosemide (Furosemide 20 Mg Tablet) 20 mg PO DAILY [facility]; Protocol Last Admin: 02/10/21 08:16 Dose: 20 mg Documented by: Glyburide (Glyburide 5 Mg Tablet) 5 mg PO DAILY [facility] Last Admin: 02/10/21 08:18 Dose: 5 mg Documented by: Insulin Glargine (Insulin Glargine,Hum.Rec.Anlog 100 Unit/Ml 10 Ml Vial) 20 unit SUBCUT DAILY [facility] Last Admin: 02/10/21 11:17 Dose: 20 unit Documented by: Insulin Human Lispro (Insulin Lispro 100 Unit/Ml 3 Ml Vial) 0 unit SUBCUT QIDACHS [facility]; Protocol Last Admin: 02/10/21 16:35 Dose: 8 unit Documented by: Lisinopril (Lisinopril 20 Mg Tablet) 20 mg PO DAILY [facility]; Protocol Last Admin: 02/10/21 08:16 Dose: 20 mg Documented by: Melatonin (Melatonin 3 Mg Tablet) 6 mg PO BEDTIME PRN PRN Reason: Insomnia Last Admin: 02/09/21 21:23 Dose: 6 mg Documented by: Nitroglycerin (Nitroglycerin 0.4 Mg Tab.Subl) 0.4 mg SUBLINGUAL Q5MX3 PRN PRN Reason: chest pain Last Admin: 02/10/21 11:18 Dose: 0.4 mg Documented by: Pt Own Med ( Ertugliflozin 15 Mg Tablet) 15 each PO DAILY [facility] Sodium Chloride (0.9 % Sodium Chloride Flush 3 Ml Syringe) 3 ml IVFLUSH QSHIFT [facility] Last Admin: 02/10/21 16:38 Dose: 3 ml Documented by: Sodium Chloride (0.9 % Sodium Chloride Flush 3 Ml Syringe) 3 ml IVFLUSH QSHIFT [facility] Last Admin: 02/10/21 16:38 Dose: Not Given Documented by: Allergies Allergies Allergy/AdvReac Type Severity Reaction Status Date / Time Penicillins [PCN] Allergy Unknown HIVES Unverified 01/25/20 16:31 Assessment & Plan Assessment & Plan (1) Opioid use disorder, severe, in controlled environment, dependence: Status: Acute Code(s): F11.20 - Opioid dependence, uncomplicated Assessment and Plan: Met with patient in room, with data recovery planner, and medical underwriter. Patient had tox screen positive for opiates, including fentanyl, as well as cocaine. He reports that he had only purchased 2 bags when he could not get his Suboxone script filled, states he is unaware that there was Fentanyl or cocaine mixed in with the heroin. He reports that he incarcerated [facility] for the past several years, and was started on Suboxone approximately 1 year ago while there. He reports that his dose was 8 mg Subutex daily. (please note, Thao does not use Suboxone, but uses buprenorphine). He reports that he is experiencing withdrawals at this time. He would like to be started back on his medication, I would also like referral to outpatient treatment going forward. I did explain that I would like to wait until this evening to re-initiate Suboxone, so as to prevent any precipitated withdrawals. I did explain that now has a long half life, and that a precipitated withdrawal would make him feel extremely ill. He stated that he understood. Recovery nurse was present, and reported that she could assist with this regarding follow-up care for a clinic. Assessment and Plan: RECOMMENDATIONS: 1. Administer Suboxone 4 mg-1 mg sublingual this evening. (one-time dose). 2. Suboxone 8 mg-2 mg sublingual daily, start tomorrow a.m.. 3. Addiction CLERICAL CAR CHECKER and data recovery planner will follow up with patient tomorrow. I have shared this with Dr. Trevon Vega in person, while on unit. Thank you. Greater than 50% of the session was spent on counseling and/or coordination of care Patient educated on: diagnosis, medication risk/benefits, substance abuse and therapeutic strategies Informed Consent: [facility] Past Medical History Medical History (Updated 02/10/21 @ 17:05 by Sarah Stacy) Diabetes History of CVA (cerebrovascular accident) HTN (hypertension) Morbid obesity Psychiatric History: Substance Abuse History Family History Family History Other CAD (coronary artery disease) Diabetes HTN (hypertension) Social History Social History Household Members: None Housing: Homeless Do you presently have visiting nurse or other home services: No Patient Tobacco Use Status: Current everyday Tobacco user Tobacco use type: Cigarette Substance Use Type: Heroin service: No Current occupational status: unemployed
[2021-02-10 20:09] LABS: Glucose, Whole Blood 311 mg/dL (60-115)
[2021-02-10] MEDS: Acetaminophen 325 MG TABLET 650 MG PO (21:12)
[2021-02-10] MEDS: Buprenorphine/Naloxone 4/1 mg FILM 1 FILM SUBLINGUAL (21:13)
[2021-02-10] MEDS: Melatonin 3 MG TABLET 6 MG PO (21:13)
[2021-02-10] MEDS: Atorvastatin Calcium 40 MG TABLET PO (21:13)
[2021-02-11] VITALS (11 sets, daily range): BP systolic 95–144; BP diastolic 60–86; PULSE 66–97; RESP 16–20; TEMP 35.8–37.1; O2SAT 80–97
[2021-02-11] MEDS: 0.9 % Sodium Chloride Flush 3 ML SYRINGE IVFLUSH ×7 (00:40→20:43)
[2021-02-11 07:31] LABS: Glucose, Whole Blood 270 mg/dL (60-115)
--- NOTE | 2021-02-11 08:30 | CA_ITS ---
Transthoracic Echocardiogram Patient (Last, First, Middle): David Russ, Gender: Male Date of : 1965 Age: 55 Procedure Date: 02/11/2021 Procedure Type: Transthoracic Echocardiogram Location: [facility] Height: 165.1 cm Weight: 147.42 kg BSA: 2.43 m2 Heart Rate: bpm BP: 137 / 76 mmHg Meteorology Faculty Member: SHWETHA/CP Referring MD: Trevon Vega MD Symptoms: chest pain Study Quality: Technically Difficult due to body habitus ECG Rhythm: Sinus Conclusions: - Moderately increased left ventricular cavity size. - The left ventricular systolic function is severely decreased. The visually estimated ejection fraction is between 20-25%. - Normal right ventricular cavity size and systolic function. Findings Left Ventricle Moderately increased left ventricular cavity size. The left ventricular systolic function is severely decreased. The visually estimated ejection fraction is between 20-25%. There is severe global hypokinesis. Abnormal diastolic function is noted. Spectral Doppler is indicative of an impaired relaxation filling pattern. Normal left ventricular filling pressures. Right Ventricle Normal right ventricular cavity size and systolic function. Atria Both atria are normal in size. Aortic Valve Normal aortic valve structure and function. There is no aortic valve stenosis. There is no aortic valve regurgitation. Mitral Valve Likely normal mitral valve structure and function. There is no mitral valve regurgitation. There is no mitral valve stenosis. Pulmonic Valve The pulmonic valve is likely normal. Tricuspid Valve Likely normal tricuspid valve structure and function. Tricuspid regurgitation envelope is inadequate for calculation of right ventricular systolic pressure. Mildly elevated right atrial pressure. Great Vessels All visible segments of the aorta are normal in size. The visualized portions of the pulmonary artery and branches are normal. Venous The inferior vena cava is normal in size and collapses less than 50% with inspiration. Pericardium/Pleural There is no evidence of pericardial effusion. Prior Study Comparison Changes noted compared to prior study dated: 02/06/2016. LVEF severely reduced now Measurements 2D Linear Measurements IVSd: 0.98 0.6-0.9/0.6-1.0 cm LVIDd: 6.74 3.9-5.3/4.2-5.9 cm LVIDd Index: 2.77 2.4-3.2/2.2-3.1 cm/m2 LVIDs: 4.98 2.0-3.6 cm LVPWd: 0.85 0.7-1.1 cm Ao Root: 3.80 2.1-3.5 cm LA Diam: 4.10 2.7-3.8/3.0-4.0 cm LAIDs Index: 1.69 1.5-2.3 cm/m2 LV Mass: 336.86 67-162/88-224 g LV Mass Index: 138.62 43-95/49-115 g/m2 LVOT Diam: 2.70 3.0+(-)1.3 cm 2D Systolic Function EF 4C: 29.60 >55% EF 2C: 37.50 >55% Mitral Valve MV Pk E: 0.34 MV PK A: 0.73 MV Decel Time: 282.00 E/A: 0.50 E'Lateral: 5.66 E'Medial: 5.01 E/E' Med: 6.80 E/E' Lat: 6.10 PHT: 83.00 MVA PHT: 2.65 Decel Mora: 1.22 Aortic Valve AoV Pk Mayank: 0.81 AoV Mn Mayank: 0.62 AoV VTI: 0.19 AoV Pk Grad: 3.00 Aov Mn Grad: 2.00 LVOT LVOT Diam: 2.70 LVOT Area: 5.73 Diastolic Function MV Pk E: 0.34 MV Pk A: 0.73 E/A: 0.50 E'Medial: 5.01 E/E' Med: 6.80 E' Laterial: 5.66 E/E' Lat: 6.10 Tricuspid Valve TR Pk Mayank: 1.44 TR Pk Grad: 8.00 Great Vessels Aorta Ao Root-2D: 3.80 2.0-3.7 cm Ao Asc: 3.30 2.1-3.4 cm Updated in Other Vendor System with Status of Final Janes Rice MD electronically signed on 02/11/2021 3:35:52 PM with status of Final
[2021-02-11] MEDS: Insulin Lispro 100 UNIT/ML 3 ML VIAL SUBCUT ×4 (08:46→20:54)
[2021-02-11] MEDS: glyBURIDE 5 MG TABLET PO (08:47)
[2021-02-11] MEDS: Enoxaparin Sodium 40 MG/0.4 ML SYRINGE SUBCUT (08:47)
[2021-02-11] MEDS: Insulin Glargine,Hum.rec.anlog 100 UNIT/ML 10 ML VIAL 20 UNIT SUBCUT (08:47)
[2021-02-11] MEDS: lisinopriL 20 MG TABLET PO (08:47)
[2021-02-11] MEDS: Aspirin 81 MG TAB.CHEW PO (08:48)
[2021-02-11] MEDS: Buprenorphine/Naloxone 8/2 mg FILM 1 FILM SUBLINGUAL (08:48)
[2021-02-11] MEDS: Amitriptyline HCl 50 MG TABLET PO (08:48)
[2021-02-11] MEDS: Furosemide 20 MG TABLET PO (08:48)
[2021-02-11 11:15] LABS: Glucose, Whole Blood 301 mg/dL (60-115)
--- NOTE | 2021-02-11 11:21 | HO.PM.IMPN ---
Subjective Subjective Date of Service: 02/11/21 Interval History: pt interviewed in Moroccan 11/16 chest pain, reproducible by palpation back on Suboxone no bed at his detention Review of Systems Review of Systems: Yes all other systems are reviewed and are negative Physical Exam Vital Signs: Vital Signs: Last Vital Signs Temp 98.8 F 02/11/21 10:53 Pulse 66 02/11/21 10:53 Resp 20 02/11/21 10:53 BP 138/83 02/11/21 10:53 Pulse Ox 96 02/11/21 10:53 Body Mass Index 54.2 Gen: in no acute distress HEENT: sclera anicteric, moist mucus membranes Neck: supple Lungs: clear to auscultation bilaterally Heart: regular rate and rhythm, no murmurs Abd: soft, morbidly obese, non-tender, non-distended Ext: no edema Skin: warm/well-perfused Neuro: alert and oriented x3, L side weak from prior CVA Psych: appropriate affect Objective Data Active Medications Acetaminophen (Acetaminophen 325 Mg Tablet) 650 mg PO Q6H PRN PRN Reason: Pain, Mild (Pain Scale 1-3) Last Admin: 02/10/21 21:12 Dose: 650 mg Documented by: BRANT Al Hydroxide/Mg Hydroxide (Magnesium Hydrox/Alum Hydrox 30 Ml Oral.Susp) 30 ml PO Q4H PRN PRN Reason: Heartburn/Nausea Amitriptyline HCl (Amitriptyline Hcl 50 Mg Tablet) 50 mg PO DAILY [facility] Last Admin: 02/11/21 08:48 Dose: 50 mg Documented by: ISAAC Aspirin (Aspirin 81 Mg Tab.Chew) 81 mg PO DAILY [facility] Last Admin: 02/11/21 08:48 Dose: 81 mg Documented by: ISAAC Atorvastatin Calcium (Atorvastatin Calcium 40 Mg Tablet) 40 mg PO BEDTIME [facility] Last Admin: 02/10/21 21:13 Dose: 40 mg Documented by: BRANT Buprenorphine/Naloxone (Buprenorphine/Naloxone 8/2 Mg Film) 1 film SUBLINGUAL DAILY [facility] Last Admin: 02/11/21 08:48 Dose: 1 film Documented by: ISAAC Enoxaparin Sodium (Enoxaparin Sodium 40 Mg/0.4 Ml Syringe) 40 mg SUBCUT DAILY [facility] Last Admin: 02/11/21 08:47 Dose: 40 mg Documented by: ISAAC Furosemide (Furosemide 20 Mg Tablet) 20 mg PO DAILY [facility]; Protocol Last Admin: 02/11/21 08:48 Dose: 20 mg Documented by: ISAAC Glyburide (Glyburide 5 Mg Tablet) 5 mg PO DAILY [facility] Last Admin: 02/11/21 08:47 Dose: 5 mg Documented by: ISAAC Insulin Glargine (Insulin Glargine,Hum.Rec.Anlog 100 Unit/Ml 10 Ml Vial) 20 unit SUBCUT DAILY [facility] Last Admin: 02/11/21 08:47 Dose: 20 unit Documented by: ISAAC Insulin Human Lispro (Insulin Lispro 100 Unit/Ml 3 Ml Vial) 0 unit SUBCUT QIDACHS [facility]; Protocol Last Admin: 02/11/21 08:46 Dose: 6 unit Documented by: ISAAC Lidocaine (Lidocaine 4 % Patch Adh..Patch) 1 patch TRANSDERMA DAILY [facility]; Protocol Lisinopril (Lisinopril 20 Mg Tablet) 20 mg PO DAILY [facility]; Protocol Last Admin: 02/11/21 08:47 Dose: 20 mg Documented by: ISAAC Melatonin (Melatonin 3 Mg Tablet) 6 mg PO BEDTIME PRN PRN Reason: Insomnia Last Admin: 02/10/21 21:13 Dose: 6 mg Documented by: BRANT Nitroglycerin (Nitroglycerin 0.4 Mg Tab.Subl) 0.4 mg SUBLINGUAL Q5MX3 PRN PRN Reason: chest pain Last Admin: 02/10/21 11:18 Dose: 0.4 mg Documented by: MURIEL Pt Own Med ( Ertugliflozin 15 Mg Tablet) 15 each PO DAILY [facility] Last Admin: 02/11/21 08:48 Dose: 15 each Documented by: ISAAC Sodium Chloride (0.9 % Sodium Chloride Flush 3 Ml Syringe) 3 ml IVFLUSH QSHIFT [facility] Last Admin: 02/11/21 08:48 Dose: 3 ml Documented by: ISAAC Sodium Chloride (0.9 % Sodium Chloride Flush 3 Ml Syringe) 3 ml IVFLUSH QSHIFT [facility] Last Admin: 02/11/21 08:48 Dose: 3 ml Documented by: ISAAC Labs CBC & Chem 7: 02/08/21 23:37 02/08/21 23:37 Labs: Laboratory Results - last 24 hr 02/10/21 02/10/21 02/10/21 10:47 11:24 16:09 POC Glucose 292 H 317 H Hep Bs Antigen Negative Hep Bs Antibody NONREACTIVE Hep B Core Total Ab Reactive Hepatitis C Ab (EIA) Nonreactive HIV 1&2 Ab/P24 Ag 4thGn Nonreactive 02/10/21 02/11/21 02/11/21 19:56 07:17 10:51 POC Glucose 311 H 270 H 301 H Hep Bs Antigen Hep Bs Antibody Hep B Core Total Ab Hepatitis C Ab (EIA) HIV 1&2 Ab/P24 Ag 4thGn Assessment and Plan (1) Chest pain: Status: Acute Assessment and Plan: hospital d#3 55yo M with DM2, HTN, HLD, prior CVA, NICM LVEF of 30-35% in 2016 with negative ischemic workup) obesity presenting with chest pain, mildly increased troponin Utox positive for fentanyl+ cocaine # atypical chest pain # NICM - Cardiology consulted; likely musculoskeletal + cocaine - continue ASA, statin, stopped b-laura; prn NTG - add lidocaine patch - TTE pending # HTN - lisinopril # HLD - statin # uncontrolled DM2, A1c 11.9 - glyburide, correction-dose lispro; started basal glargine insulin; also on ertugliozin as outpt # morbid obesity - t/c outpt bariatrics evaluation # opioid use disorder - back on Suboxone # cocaine abuse - CARE Team + Addiction Med consults - counseled on cardiac + other risks of cocaine # HCV Ab positive - check viral load # VTE ppx - LMWH # dispo - need to secure bed at homeless detention Quality Stroke Does the patient have a stroke diagnosis?: No VTE Prior VTE?: No VTE Risk Level:: Medical - moderate - high VTE Device Contraindication: Treatment Not Indicated VTE Drug Contraindication: N/A - Med Ordered
[2021-02-11] MEDS: Lidocaine 4 % Patch ADH..PATCH 1 PATCH TRANSDERMA (11:31)
--- NOTE | 2021-02-11 12:28 | MHC.CM.PN ---
Met with Male 55 communication via railroad track inspector. The patient and this automatic typewriter inspector both called [facility]. No bed available today. Instructed by staff, Aldair to call back 8am tomorrow to reserve a bed.
--- NOTE | 2021-02-11 12:34 | MHC.CDI.CONC ---
CDI Concurrent Query Documentation Clarification: PHYSICIAN'S DOCUMENTATION REQUEST Date of Query: 02/11/21 1234 Patient Name: David Russ Admit Date: 02/09/21 Dear Doctor, A review of the medical record indicates additional documentation may be needed. Please review below and update the documentation accordingly. 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 Chest pain/pressure/muscular. History of Cardiomyopathy on prior echo. NICM noted by Cardiology Based on the above, could you clarify in the Progress Notes the appropriate diagnosis, if significant, that supports the above abnormalities and additional evaluation, monitoring, and/or treatment rendered: NICM, due to drug (cocaine) toxic, or other external agent Other (please specify) Unable to determine Use of terms such as suspected, likely, concern for, or probable (associated with a specific diagnosis that is being evaluated, monitored, or treated as if it exists) are acceptable and can be coded in the inpatient setting, when documented at the time of discharge. Thank you, Kenia Branham [facility]. CDIS Extension: [id number] Please use your independent medical judgment in providing your response. THIS QUERY IS PART OF THE PERMANENT MEDICAL RECORD Provider Response: Other Other Diagnosis: unable to determinte at this point
[2021-02-11 13:56] LABS: Hepatitis B Core Antibody IgM NON-REACTIVE (NON-REACTIVE)
--- NOTE | 2021-02-11 15:03 | MHC.CM.PN ---
Male 55 Patient had a PT eval today. Referrals to [facility] and [facility][Note 3] have been sent. Those 2 facilities we sent referrals because they accept opioid management therapy pts. Patient is on Suboxone.
[2021-02-11 16:44] LABS: Glucose, Whole Blood 237 mg/dL (60-115)
--- NOTE | 2021-02-11 17:22 | HO.ADDICTPRO ---
Subjective Subjective Date of Service: 02/11/21 Reason For Visit: chest pain Interim History: Patient reports he is doing well with 8mg suboxone denies any withdrawal sx he does not know where he will be staying, but is asking to have rx sent to [place], and would like to go there for care Review of Systems Constitutional: Reports as per HPI and Reports no additional constitutional complaints Mental Status Exam Mental Status Exam Patient Appearance: Appropriate Patient Orientation: Person, Place, Time and Situation Level of Consciousness: Awake and Appropriate Patient Behavior: Timid Mood Description: Blunted Ability to Follow Directions: Good Thought Process: Goal Oriented and Slowed Thinking Judgement: Fair Diagnostics Vital Signs (24Hr): Vital Signs - 24 hr 02/10/21 19:00 02/10/21 23:38 02/11/21 00:02 Temperature 97.3 F 98.3 F Pulse Rate 88 82 Respiratory Rate 20 18 18 Blood Pressure 101/76 126/65 Pulse Oximetry 95 94 02/11/21 03:55 02/11/21 05:13 02/11/21 07:22 Temperature 96.5 F L 97.8 F Pulse Rate 80 91 Respiratory Rate 16 20 18 Blood Pressure 95/60 144/81 H Pulse Oximetry 97 93 02/11/21 08:40 02/11/21 08:47 02/11/21 10:53 Temperature 98.8 F Pulse Rate 91 66 Respiratory Rate 18 20 Blood Pressure 144/81 H 138/83 Pulse Oximetry 96 02/11/21 13:19 02/11/21 15:31 Temperature 98 F Pulse Rate 66 84 Respiratory Rate 16 Blood Pressure 138/83 108/86 Pulse Oximetry 96 96 Body Mass Index 54.2 Labs Results: 02/08/21 23:37 02/08/21 23:37 Labs: Laboratory Results - last 48 hr 02/08/21 02/09/21 02/09/21 23:37 16:31 19:54 POC Glucose 297 H Estimat Average Glucose 295 Hemoglobin A1c % 11.9 Urine Opiates Screen POSITIVE H Urine Fentanyl Screen POSITIVE H Ur Barbiturates Screen Not Detected Ur Phencyclidine Scrn Not Detected Ur Amphetamines Screen Not Detected U Benzodiazepines Scrn Not Detected Urine Cocaine Screen POSITIVE H U Marijuana (THC) Screen Not Detected Hep Bs Antigen Hep Bs Antibody Hep B Core Total Ab Hep B Core IgM Ab Hepatitis C Ab (EIA) Hep C Viral Load Hep C Viral Load Log HIV 1&2 Ab/P24 Ag 4thGn 02/10/21 02/10/21 02/10/21 07:19 10:47 11:24 POC Glucose 219 H 292 H Estimat Average Glucose Hemoglobin A1c % Urine Opiates Screen Urine Fentanyl Screen Ur Barbiturates Screen Ur Phencyclidine Scrn Ur Amphetamines Screen U Benzodiazepines Scrn Urine Cocaine Screen U Marijuana (THC) Screen Hep Bs Antigen Negative Hep Bs Antibody NONREACTIVE Hep B Core Total Ab Reactive Hep B Core IgM Ab NON-REACTIVE Hepatitis C Ab (EIA) Nonreactive Hep C Viral Load Hep C Viral Load Log HIV 1&2 Ab/P24 Ag 4thGn Nonreactive 02/10/21 02/10/21 02/11/21 16:09 19:56 07:17 POC Glucose 317 H 311 H 270 H Estimat Average Glucose Hemoglobin A1c % Urine Opiates Screen Urine Fentanyl Screen Ur Barbiturates Screen Ur Phencyclidine Scrn Ur Amphetamines Screen U Benzodiazepines Scrn Urine Cocaine Screen U Marijuana (THC) Screen Hep Bs Antigen Hep Bs Antibody Hep B Core Total Ab Hep B Core IgM Ab Hepatitis C Ab (EIA) Hep C Viral Load Hep C Viral Load Log HIV 1&2 Ab/P24 Ag 4thGn 02/11/21 02/11/21 02/11/21 10:51 11:48 16:07 POC Glucose 301 H 237 H Estimat Average Glucose Hemoglobin A1c % Urine Opiates Screen Urine Fentanyl Screen Ur Barbiturates Screen Ur Phencyclidine Scrn Ur Amphetamines Screen U Benzodiazepines Scrn Urine Cocaine Screen U Marijuana (THC) Screen Hep Bs Antigen Hep Bs Antibody Hep B Core Total Ab Hep B Core IgM Ab Hepatitis C Ab (EIA) Hep C Viral Load Cancelled Hep C Viral Load Log Cancelled HIV 1&2 Ab/P24 Ag 4thGn Imaging Radiology Impressions: ITS Impressions Chest X-Ray 02/08/21 23:09 IMPRESSION: Low lung volumes with bronchovascular crowding and subsegmental atelectasis. No focal infiltrates. No pleural effusions or pneumothorax. Medications Medications Current Medications Acetaminophen (Acetaminophen 325 Mg Tablet) 650 mg PO Q6H PRN PRN Reason: Pain, Mild (Pain Scale 1-3) Last Admin: 02/10/21 21:12 Dose: 650 mg Documented by: Al Hydroxide/Mg Hydroxide (Magnesium Hydrox/Alum Hydrox 30 Ml Oral.Susp) 30 ml PO Q4H PRN PRN Reason: Heartburn/Nausea Amitriptyline HCl (Amitriptyline Hcl 50 Mg Tablet) 50 mg PO DAILY [facility] Last Admin: 02/11/21 08:48 Dose: 50 mg Documented by: Aspirin (Aspirin 81 Mg Tab.Chew) 81 mg PO DAILY [facility] Last Admin: 02/11/21 08:48 Dose: 81 mg Documented by: Atorvastatin Calcium (Atorvastatin Calcium 40 Mg Tablet) 40 mg PO BEDTIME [facility] Last Admin: 02/10/21 21:13 Dose: 40 mg Documented by: Buprenorphine/Naloxone (Buprenorphine/Naloxone 8/2 Mg Film) 1 film SUBLINGUAL DAILY [facility] Last Admin: 02/11/21 08:48 Dose: 1 film Documented by: Enoxaparin Sodium (Enoxaparin Sodium 40 Mg/0.4 Ml Syringe) 40 mg SUBCUT DAILY [facility] Last Admin: 02/11/21 08:47 Dose: 40 mg Documented by: Furosemide (Furosemide 20 Mg Tablet) 20 mg PO DAILY [facility]; Protocol Last Admin: 02/11/21 08:48 Dose: 20 mg Documented by: Glyburide (Glyburide 5 Mg Tablet) 5 mg PO DAILY [facility] Last Admin: 02/11/21 08:47 Dose: 5 mg Documented by: Insulin Glargine (Insulin Glargine,Hum.Rec.Anlog 100 Unit/Ml 10 Ml Vial) 20 unit SUBCUT DAILY [facility] Last Admin: 02/11/21 08:47 Dose: 20 unit Documented by: Insulin Human Lispro (Insulin Lispro 100 Unit/Ml 3 Ml Vial) 0 unit SUBCUT QIDACHS [facility]; Protocol Last Admin: 02/11/21 11:31 Dose: 8 unit Documented by: Lidocaine (Lidocaine 4 % Patch Adh..Patch) 1 patch TRANSDERMA DAILY [facility]; Protocol Last Admin: 02/11/21 11:31 Dose: 1 patch Documented by: Lisinopril (Lisinopril 20 Mg Tablet) 20 mg PO DAILY [facility]; Protocol Last Admin: 02/11/21 08:47 Dose: 20 mg Documented by: Melatonin (Melatonin 3 Mg Tablet) 6 mg PO BEDTIME PRN PRN Reason: Insomnia Last Admin: 02/10/21 21:13 Dose: 6 mg Documented by: Nitroglycerin (Nitroglycerin 0.4 Mg Tab.Subl) 0.4 mg SUBLINGUAL Q5MX3 PRN PRN Reason: chest pain Last Admin: 02/10/21 11:18 Dose: 0.4 mg Documented by: Pt Own Med ( Ertugliflozin 15 Mg Tablet) 15 each PO DAILY [facility] Last Admin: 02/11/21 08:48 Dose: 15 each Documented by: Sodium Chloride (0.9 % Sodium Chloride Flush 3 Ml Syringe) 3 ml IVFLUSH QSHIFT [facility] Last Admin: 02/11/21 11:32 Dose: 3 ml Documented by: Sodium Chloride (0.9 % Sodium Chloride Flush 3 Ml Syringe) 3 ml IVFLUSH QSHIFT [facility] Last Admin: 02/11/21 11:32 Dose: 3 ml Documented by: Allergies Allergies Allergy/AdvReac Type Severity Reaction Status Date / Time Penicillins [PCN] Allergy Unknown HIVES Verified 02/11/21 10:58 Assessment & Plan Assessment & Plan (1) Opioid use disorder, severe, in controlled environment, dependence: Status: Acute Code(s): F11.20 - Opioid dependence, uncomplicated Assessment and Plan: continue suboxone 8mg QD once dispo is determined, bridge rx will be sent to [place] and patient can present to [place] as he requests (or appt will be set) RSRN to follow up in AM Greater than 50% of the session was spent on counseling and/or coordination of care
[2021-02-11] MEDS: Acetaminophen 325 MG TABLET 650 MG PO (20:42)
[2021-02-11] MEDS: Melatonin 3 MG TABLET 6 MG PO (20:42)
[2021-02-11] MEDS: Atorvastatin Calcium 40 MG TABLET PO (20:43)
[2021-02-11 20:53] LABS: Glucose, Whole Blood 280 mg/dL (60-115)
[2021-02-12] VITALS (10 sets, daily range): BP systolic 112–144; BP diastolic 60–84; PULSE 81–100; RESP 18–20; TEMP 36.3–37.4; O2SAT 94–97
[2021-02-12] MEDS: 0.9 % Sodium Chloride Flush 3 ML SYRINGE IVFLUSH ×6 (00:21→23:38)
[2021-02-12 07:28] LABS: Glucose, Whole Blood 193 mg/dL (60-115)
[2021-02-12] MEDS: lisinopriL 20 MG TABLET PO (08:26)
[2021-02-12] MEDS: Furosemide 20 MG TABLET PO (08:27)
[2021-02-12] MEDS: Aspirin 81 MG TAB.CHEW PO (08:27)
[2021-02-12] MEDS: Metoprolol Succinate ER 25 MG TAB.ER.24H PO (08:27)
[2021-02-12] MEDS: Amitriptyline HCl 50 MG TABLET PO (08:28)
[2021-02-12] MEDS: glyBURIDE 5 MG TABLET PO (08:30)
[2021-02-12] MEDS: Insulin Glargine,Hum.rec.anlog 100 UNIT/ML 10 ML VIAL 20 UNIT SUBCUT (08:30)
[2021-02-12] MEDS: Insulin Lispro 100 UNIT/ML 3 ML VIAL SUBCUT ×4 (08:31→21:15)
[2021-02-12] MEDS: Enoxaparin Sodium 40 MG/0.4 ML SYRINGE SUBCUT (08:32)
[2021-02-12] MEDS: Buprenorphine/Naloxone 8/2 mg FILM 1 FILM SUBLINGUAL (08:33)
[2021-02-12] MEDS: Lidocaine 4 % Patch ADH..PATCH 1 PATCH TRANSDERMA (08:34)
[2021-02-12 08:55] LABS: Anion Gap 12 (12-20); Blood Urea Nitrogen 19 mg/dL (9-16); Calcium 8.9 mg/dL (8.4-10.2); Carbon Dioxide 27 mmol/L (22-29); Chloride 105 mmol/L (96-108); Creatinine Clr Calc Pharmacy 95.2; Estimated Glomerular Filt Rate > 60; Glucose Random 256 mg/dL (60-115); Potassium 4.4 mmol/L (3.3-5.1); Sodium 140 mmol/L (135-145)
[2021-02-12 08:59] LABS: B Type Natriuretic Peptide < 10 pg/mL (<100)
--- NOTE | 2021-02-12 09:49 | PM.PNCARD ---
Subjective Subjective Date of Service: 02/12/21 Principal diagnosis: CP, NICMP Interval history: Cardiology follow up for the above. Seen at 0845 with certified Assisted Living Assistant. Today he reports feeling better. He does report some discomfort below left breast that is worse with palpation. No other CP. No sob, palpitation, dizziness, edema. Slept well and steady on feet when getting OOB to chair today. Planning to go to rehab today. Review of Systems Review of Systems as above Yes all other systems are reviewed and are negative Physical Exam Vital Signs: Last Vital Signs Temp 98.8 F 02/12/21 07:52 Pulse 100 02/12/21 08:57 Resp 20 02/12/21 07:52 BP 134/84 02/12/21 08:57 Pulse Ox 96 02/12/21 07:52 Body Mass Index 54.2 Const Other: Morbidly obese General: cooperative, no acute distress, alert and awake Orientation/consciousness: patient oriented x3 HENMT Head: Yes normal to inspection Neck Neck: Yes normal visual inspection Resp Effort & Inspection: normal respiratory effort, able to speak in complete sentences and not labored Auscultation: clear to auscultation bilaterally, no rales, no rhonchi and no wheezes Cardio Palpation: normal PMI Rate: regular rate Rhythm: regular rhythm Heart sounds: S1 normal heart sound present and S2 normal heart sound present Peripheral pulses: Peripheral pulses 2+ throughout GI Inspection: Yes normal to inspection Neuro General: patient oriented x3 Extrem General: Yes normal to inspection and No edema Results Labs and Meds Result diagrams: 02/08/21 23:37 02/12/21 08:20 Lab results: Laboratory Results - last 24 hr 02/10/21 02/11/21 02/11/21 10:47 10:51 11:48 Sodium Potassium Chloride Carbon Dioxide Anion Gap BUN Creatinine Estim Creat Clear Calc Estimated GFR POC Glucose 301 H Random Glucose Calcium B-Natriuretic Peptide Hep B Core IgM Ab NON-REACTIVE Hep C Viral Load Cancelled Hep C Viral Load Log Cancelled 02/11/21 02/11/21 02/12/21 16:07 20:25 07:17 Sodium Potassium Chloride Carbon Dioxide Anion Gap BUN Creatinine Estim Creat Clear Calc Estimated GFR POC Glucose 237 H 280 H 193 H Random Glucose Calcium B-Natriuretic Peptide Hep B Core IgM Ab Hep C Viral Load Hep C Viral Load Log 02/12/21 02/12/21 08:20 08:20 Sodium 140 Potassium 4.4 Chloride 105 Carbon Dioxide 27 Anion Gap 12 BUN 19 H Creatinine 1.19 Estim Creat Clear Calc 95.2 Estimated GFR > 60 POC Glucose Random Glucose 256 H Calcium 8.9 D B-Natriuretic Peptide < 10 Hep B Core IgM Ab Hep C Viral Load Hep C Viral Load Log Progress Note: A&P Assessment and plan (1) Chest pain: Status: Acute Assessment and Plan: Admit with CP. Troponins were mildly elevated. EKG has T wave inversions which were same as prior EKGs. He has known hx of NICMP. He has chest discomfort today which is atypical for angina. Echo shows EF 20-25%, global hypokinesis - no regional WMA. No ACS. He is on Lisinopril for neurohormonal modulation. On Low dose lasix. Do not use BB on him as his Tox screen was + for cocaine. Do not use Diltiazem on him as EF is down. He does not appear to have clinical signs of HF. He is morbidly obese making his physical exam more challenging. Spent time going over all the above findings with him, reviewing diagnosis of CMP, risk for CHF, SCD, need for complete cocaine and other illicit drug cessation, need for strict medication compliance, need for outpt cardiology follow up. He states understanding. He is being discharged to rehab facility today. We will arrange outpt cardiology follow up. (2) NICM (nonischemic cardiomyopathy): Status: Acute (3) Morbid obesity: Status: Acute (4) Opioid use disorder, severe, in controlled environment, dependence: Status: Acute Fall Risk Details Current Medications: Current Medications Acetaminophen (Acetaminophen 325 Mg Tablet) 650 mg PO Q6H PRN PRN Reason: Pain, Mild (Pain Scale 1-3) Last Admin: 02/11/21 20:42 Dose: 650 mg Documented by: Al Hydroxide/Mg Hydroxide (Magnesium Hydrox/Alum Hydrox 30 Ml Oral.Susp) 30 ml PO Q4H PRN PRN Reason: Heartburn/Nausea Amitriptyline HCl (Amitriptyline Hcl 50 Mg Tablet) 50 mg PO DAILY [facility] Last Admin: 02/12/21 08:28 Dose: 50 mg Documented by: Aspirin (Aspirin 81 Mg Tab.Chew) 81 mg PO DAILY [facility] Last Admin: 02/12/21 08:27 Dose: 81 mg Documented by: Atorvastatin Calcium (Atorvastatin Calcium 40 Mg Tablet) 40 mg PO BEDTIME [facility] Last Admin: 02/11/21 20:43 Dose: 40 mg Documented by: Buprenorphine/Naloxone (Buprenorphine/Naloxone 8/2 Mg Film) 1 film SUBLINGUAL DAILY [facility] Last Admin: 02/12/21 08:33 Dose: 1 film Documented by: Enoxaparin Sodium (Enoxaparin Sodium 40 Mg/0.4 Ml Syringe) 40 mg SUBCUT DAILY [facility] Last Admin: 02/12/21 08:32 Dose: 40 mg Documented by: Furosemide (Furosemide 20 Mg Tablet) 20 mg PO DAILY [facility]; Protocol Last Admin: 02/12/21 08:27 Dose: 20 mg Documented by: Glyburide (Glyburide 5 Mg Tablet) 5 mg PO DAILY [facility] Last Admin: 02/12/21 08:30 Dose: 5 mg Documented by: Insulin Glargine (Insulin Glargine,Hum.Rec.Anlog 100 Unit/Ml 10 Ml Vial) 20 unit SUBCUT DAILY [facility] Last Admin: 02/12/21 08:30 Dose: 20 unit Documented by: Insulin Human Lispro (Insulin Lispro 100 Unit/Ml 3 Ml Vial) 0 unit SUBCUT QIDACHS [facility]; Protocol Last Admin: 02/12/21 08:31 Dose: 2 unit Documented by: Lidocaine (Lidocaine 4 % Patch Adh..Patch) 1 patch TRANSDERMA DAILY [facility]; Protocol Last Admin: 02/12/21 08:34 Dose: 1 patch Documented by: Lisinopril (Lisinopril 20 Mg Tablet) 20 mg PO DAILY [facility]; Protocol Last Admin: 02/12/21 08:26 Dose: 20 mg Documented by: Melatonin (Melatonin 3 Mg Tablet) 6 mg PO BEDTIME PRN PRN Reason: Insomnia Last Admin: 02/11/21 20:42 Dose: 6 mg Documented by: Nitroglycerin (Nitroglycerin 0.4 Mg Tab.Subl) 0.4 mg SUBLINGUAL Q5MX3 PRN PRN Reason: chest pain Last Admin: 02/10/21 11:18 Dose: 0.4 mg Documented by: Pt Own Med ( Ertugliflozin 15 Mg Tablet) 15 each PO DAILY [facility] Last Admin: 02/12/21 08:37 Dose: 15 each Documented by: Sodium Chloride (0.9 % Sodium Chloride Flush 3 Ml Syringe) 3 ml IVFLUSH QSHIFT [facility] Last Admin: 02/12/21 00:21 Dose: 3 ml Documented by: Sodium Chloride (0.9 % Sodium Chloride Flush 3 Ml Syringe) 3 ml IVFLUSH [facility] Last Admin: 02/12/21 00:22 Dose: 3 ml Documented by: Time Spent With Patient Time: Total time spent is greater than 50% in coordination of care (as documented) at patient's floor/unit and/or counseling patient: 24 Time with patient: 15 - 24 minutes Progress Note: Quality Stroke Does the patient have a stroke diagnosis?: No Procedures Date of Service Date of Service: 02/12/21
[2021-02-12 10:58] LABS: Glucose, Whole Blood 283 mg/dL (60-115)
--- NOTE | 2021-02-12 11:05 | PM.DS ---
DS: Providers Provider Date of Service: 02/12/21 <Trevon Vega MD - Last Filed: 02/20/21 07:25> Date of admission: 02/09/21 04:39 <Trevon Vega MD - Last Filed: 02/20/21 07:25> Date of discharge: 02/13/21 <Trevon Vega MD - Last Filed: 02/20/21 07:25> Primary care physician: [facility] <Trevon Vega MD - Last Filed: 02/20/21 07:25> Consults: 02/09/21 04:40 Consult to Cardiology Routine Consulting Provider: Salo Shankar Reason for consultation: chest pain Has provider been notified: No 02/09/21 18:03 Addiction Medicine Routine Consulting Provider: Zoe Berry Reason for consultation: cocaine + fentanyl abuse Consult to Care Team Routine Comment: Reason for consultation: cocaine + fentanyl abuse <Trevon Vega MD - Last Filed: 02/20/21 07:25> DS: Diagnosis Discharge Diagnosis (1) NICM (nonischemic cardiomyopathy): Status: Acute <Trevon Vega MD - Last Filed: 02/20/21 07:25> (2) Morbid obesity: Status: Acute <Trevon Vega MD - Last Filed: 02/20/21 07:25> (3) Opioid use disorder, severe, in controlled environment, dependence: Status: Acute <Trevon Vega MD - Last Filed: 02/20/21 07:25> (4) Atypical chest pain: Status: Acute <Trevon Vega MD - Last Filed: 02/20/21 07:25> (5) Chronic HFrEF (heart failure with reduced ejection fraction): Status: Acute <Trevon Vega MD - Last Filed: 02/20/21 07:25> (6) Tobacco abuse: Status: Acute <Trevon Vega MD - Last Filed: 02/20/21 07:25> (7) Cocaine abuse: Status: Acute <Trevon Vega MD - Last Filed: 02/20/21 07:25> (8) Uncontrolled type 2 diabetes mellitus: Status: Acute <Trevon Vega MD - Last Filed: 02/20/21 07:25> (9) Morbid obesity: Status: Acute <Trevon Vega MD - Last Filed: 02/20/21 07:25> (10) Hepatitis B core antibody positive: Status: Acute <Trevon Vega MD - Last Filed: 02/20/21 07:25> DS: Summary Hospital Course Hospital Course: from admission H+P by hospitalist Bacilio Vika, 02/09/21: 55 year old male morbidly obesse with HTN controlled with Lisinopril,, Diabetes non insulin dependent? on oral meds,? HLD on no meds, history of CVA no details and has no residual effect, recently got of chcf, and smokes cigaretttes. He presents with chest pain onset the evening of prior day. He describes dull pain that at some point was so severe that he voided on himself. He had associated shortness of breath. No nausea, or diaphoressis, pain radiates to arms.? ECG shows non-specific Ts, no old ECGs for comparaison. Initial troponin I is 54. Pain is since given aspirin.? He states that he has has had similar eopisode in the past and had work up in [place] but not sure what hospital or what was done. The patient was admitted to the [facility]. Repeat hs-T-I was 45.7. Cardiology was consulted. It was thought that the patient's chest pain was atypical for ACS. It was likely musculoskeletal, as it was reproducible with palpitation. The possibility of cocaine-induced chest pain is also present, as the patient's urine toxicology was positive for cocaine. He also tested positive for fentanyl. Chest pain improved with lidocaine patch. TTE showed severely reduced LVEF of 20-25% with no wall motion abnormalities. He had no signs of decompensated heart failure. Addiction Medicine was consulted. He was started on Suboxone. He was counseled to avoid cocaine, fentanyl/heroin, and all other substances of abuse. He had uncontrolled DM2 as evidenced by A1c 11.9, and glargine 20 units daily was added to glyburide and ertugliflozin. Due to weakness and balance problems, he was discharged to SNF for short-term rehabilitation. He needs close Cardiology follow-up. Lisinopril was continued for BP control, renal protection, and neurohormonal modulation. He was not given b-laura due to cocaine abuse. He also was found to have isolated anti-HBc and a hepatitis B DNA viral load is pending at the time of discharge. Anticipate less than [address] [facility] <Trevon Vega MD - Last Filed: 02/20/21 07:25> Time Spent with Patient Time attestation: Total time spent providing and/or coordinating discharge services: <Trevon Vega MD - Last Filed: 02/20/21 07:25> Discharge coordination time: Greater than 30 minutes <Trevon Vega MD - Last Filed: 02/20/21 07:25> Quality: Stroke Does the patient have a stroke diagnosis?: No <Trevon Vega MD - Last Filed: 02/20/21 07:25> Physical Exam Vital Signs: Vital Signs: Last Vital Signs Temp 98.8 F 02/12/21 07:52 Pulse 100 02/12/21 08:57 Resp 20 02/12/21 07:52 BP 134/84 02/12/21 08:57 Pulse Ox 96 02/12/21 07:52 Body Mass Index 54.2 Gen: in no acute distress HEENT: sclera anicteric, moist mucus membranes Neck: supple Lungs: clear to auscultation bilaterally Heart: regular rate and rhythm, no murmurs Abd: soft, morbidly obese, non-tender, non-distended Ext: no edema Skin: warm/well-perfused Neuro: alert and oriented x3, L side weak from prior CVA Psych: appropriate affect <Trevon Vega MD - Last Filed: 02/20/21 07:25> DS: Data Data Completed and Pending Completed studies during hospitalization [Text1]: Laboratory Results WBC 10.2 X10*3/uL (4.8-10.8) 02/08/21 23:37 RBC 4.88 X10*6/uL (4.60-5.80) 02/08/21 23:37 Hgb 13.6 g/dl (14.0-18.0) L 02/08/21 23:37 Hct 43.9 % (42-52) 02/08/21 23:37 MCV 90.0 fL (80-98) 02/08/21 23:37 MCH 27.9 pg (27.0-33.0) 02/08/21 23:37 MCHC 31.0 g/dl (31.0-36.0) 02/08/21 23:37 RDW 13.4 % (11.0-16.0) 02/08/21 23:37 Plt Count 216 X10*3/uL (160-400) 02/08/21 23:37 MPV 11.1 fL (9.4-12.4) 02/08/21 23:37 Immature Gran % (Auto) 0.4 % (0.0-0.4) 02/08/21 23: Neut % (Auto) 67.2 % (45-73) 02/08/21 23:37 Lymph % (Auto) 23.3 % (20-40) 02/08/21 23:37 Mellette % (Auto) 8.7 % (2-11) 02/08/21 23:37 Eos % (Auto) 0.3 % (0-4) 02/08/21 23:37 Baso % (Auto) 0.1 % (0-2) 02/08/21 23:37 Lymph # (Auto) 2.4 X10*3/uL (1.2-4.9) 02/08/21 23:37 Mellette # (Auto) 0.9 X10*3/uL (0.1-1.2) 02/08/21 23:37 Eos # (Auto) 0.0 X10*3/uL (0.0-0.4) 02/08/21 23:37 Baso # (Auto) 0.0 X10*3/uL (0.0-0.2) 02/08/21 23:37 Abs Immat Gran (auto) 0.04 X10*3/uL (0.00-0.03) H 02/08/21 23:37 Absolute Neuts (auto) 6.8 X10*3/uL (2.0-8.3) 02/08/21 23:37 Absolute Nucleated RBC 0.000 X10*3/uL (0.0-0.012) 02/08/21 23: Nucleated RBC % (auto) 0.0 /100WBC (0.0-0.2) 02/08/21 23:37 Sodium 140 mmol/L (135-145) 02/12/21 08:20 Potassium 4.4 mmol/L (3.3-5.1) 02/12/21 08:20 Chloride 105 mmol/L (96-108) 02/12/21 08:20 Carbon Dioxide 27 mmol/L (22-29) 02/12/21 08:20 Anion Gap 12 (12-20) 02/12/21 08:20 BUN 19 mg/dL (9-16) H 02/12/21 08:20 Creatinine 1.19 mg/dL (0.5-1.4) 02/12/21 08:20 Estim Creat Clear Calc 95.2 02/12/21 08:20 Estimated GFR > 60 02/12/21 08:20 POC Glucose 283 mg/dL (60-115) H 02/12/21 10:46 Random Glucose 256 mg/dL (60-115) H 02/12/21 08:20 Estimat Average Glucose 295 mg/dL 02/08/21 23:37 Hemoglobin A1c % 11.9 % 02/08/21 23:37 Calcium 8.9 mg/dL (8.4-10.2) D 02/12/21 08:20 Troponin I High Sens 45.7 ng/L (<3.5-35.0) H* 02/09/21 03:44 B-Natriuretic Peptide < 10 pg/mL (<100) 02/12/21 08:20 Triglycerides 129 mg/dL 02/09/21 06:48 Cholesterol 142 mg/dL 02/09/21 06:48 LDL Cholesterol, Calc 83 mg/dl 02/09/21 06:48 HDL Cholesterol 34 mg/dL 02/09/21 06:48 Urine Opiates Screen POSITIVE (Not Detect) H 02/09/21 16:31 Urine Fentanyl Screen POSITIVE (Not Detect) H 02/09/21 16:31 Ur Barbiturates Screen Not Detected (Not Detect) 02/09/21 16:31 Ur Phencyclidine Scrn Not Detected (Not Detect) 02/09/21 16:31 Ur Amphetamines Screen Not Detected (Not Detect) 02/09/21 16:31 U Benzodiazepines Scrn Not Detected (Not Detect) 02/09/21 16:31 Urine Cocaine Screen POSITIVE (Not Detect) H 02/09/21 16:31 U Marijuana (THC) Screen Not Detected (Not Detect) 02/09/21 16:31 COVID-19 (YOHAN) Negative (Negative) 02/09/21 01:04 COVID-19 Clin Com See Note 02/09/21 01:04 Hep Bs Antigen Negative (Negative) 02/10/21 10:47 Hep Bs Antibody NONREACTIVE (Nonreactive) 02/10/21 10:47 Hep B Core Total Ab Reactive (Nonreactive) 02/10/21 10:47 Hep B Core IgM Ab NON-REACTIVE (NON-REACTIVE) 02/10/21 10:47 Hepatitis C Ab (EIA) Nonreactive (Nonreactive) 02/10/21 10:47 Hep C Viral Load Cancelled 02/11/21 11:48 Hep C Viral Load Log Cancelled 02/11/21 11:48 HIV 1&2 Ab/P24 Ag 4thGn Nonreactive (Nonreactive) 02/10/21 10:47 Impressions Chest X-Ray 02/08/21 23:09 IMPRESSION: Low lung volumes with bronchovascular crowding and subsegmental atelectasis. No focal infiltrates. No pleural effusions or pneumothorax. TTE 02/11/21 - Moderately increased left ventricular cavity size. ? - The left ventricular systolic function is severely decreased.? The visually estimated ejection fraction is between 20-25%.? ? ? - Normal right ventricular cavity size and systolic function.? ? <Trevon Vega MD - Last Filed: 02/20/21 07:25> Discharge Plan Discharge Patient Disposition: Xfer SNF <Trevon Vega MD - Last Filed: 02/20/21 07:25> Discharge Diagnosis: atypical chest pain, non-ischemic cardiomyopathy, chronic heart failure with reduced ejection fraction, cocaine abuse, opioid use disorder, uncontrolled type 2 diabetes mellitus <Trevon Vega MD - Last Filed: 02/20/21 07:25> atypical chest pain, non-ischemic cardiomyopathy, chronic heart failure with reduced ejection fraction, cocaine abuse, opioid use disorder, uncontrolled type 2 diabetes mellitus <AISLINN Lizarraga - Last Filed: 02/13/21 10:56> Referrals: [facility] [Outside] - 1 Week Center,[facility] [Primary Care Provider] - 1 Week Salo Shankar MD [Physician] - 2 Weeks <Trevon Vega MD - Last Filed: 02/20/21 07:25> Discharge Medications: New atorvastatin 40 mg Tablet 40 mg PO BEDTIME Qty: 30 RF: 0 Lantus U-100 Insulin 100 unit/mL Solution 20 unit subcut DAILY Qty: 10 RF: 0 lidocaine [Lidocaine Pain Relief] 4 % Adhesive Patch,Medicated 1 patch transdermal DAILY Qty: 30 RF: 0 aspirin 81 mg Tablet,Chewable 81 mg PO DAILY Qty: 30 RF: 0 nicotine (polacrilex) 2 mg gum 2 mg buccal Q1H PRN (Reason: nicotine cravings) Qty: 100 RF: 0 buprenorphine-naloxone [Suboxone] 8-2 mg film 1 film sublingual DAILY Qty: 28 RF: 0 Continued glyburide 5 mg Tablet 5 mg PO DAILY RF: 0 lisinopril 20 mg Tablet 20 mg PO DAILY RF: 0 amitriptyline 50 mg Tablet 50 mg PO DAILY RF: 0 furosemide 20 mg Tablet 20 mg PO DAILY RF: 0 ertugliflozin 15 mg Tablet 15 mg PO QAM RF: 0 <Trevon Vega MD - Last Filed: 02/20/21 07:25> Discharge Orders: Discharge Order (Routine); Ordered 02/12/21 Ordered By: Trevon Vega <Trevon Vega MD - Last Filed: 02/20/21 07:25> Diet: diabetic diet and low salt diet <Trevon Vega MD - Last Filed: 02/20/21 07:25> diabetic diet and low salt diet <AISLINN Lizarraga - Last Filed: 02/13/21 10:56> Activity on Discharge: As tolerated <Trevon Vega MD - Last Filed: 02/20/21 07:25> As tolerated <AISLINN Lizarraga - Last Filed: 02/13/21 10:56> Stand Alone Forms: Patient Portal Discharge page <Trevon Vega MD - Last Filed: 02/20/21 07:25> Care Plan Goals: cardiac health avoid drugs of abuse <Trevon Vega MD - Last Filed: 02/20/21 07:25> Health Concerns: atypical chest pain, non-ischemic cardiomyopathy, chronic heart failure with reduced ejection fraction, cocaine abuse, opioid use disorder, uncontrolled type 2 diabetes <Trevon Vega MD - Last Filed: 02/20/21 07:25> Plan of Treatment: lidocaine patch for musculoskeletal chest pain AVOID cocaine and heroin and fentanyl and other drugs of abuse quit smoking; use nicotine gum to quit take Suboxone as prescribed continue lisinopril continue glyburide and ertugliflozin; add Lantus 20 units daily FOLLOW UP WITH PRIMARY CARE UPON DISCHARGE FROM REHABILITATION FOLLOW UP WITH [facility] IN 2 WEEKS <Trevon Vega MD - Last Filed: 02/20/21 07:25> Assessment: see Discharge Summary <Trevon Vega MD - Last Filed: 02/20/21 07:25> Patient Instructions: Dilated Cardiomyopathy (DC), Meal Planning with Diabetes Exchanges (DC), Low-Sodium Diet (DC) <Trevon Vega MD - Last Filed: 02/20/21 07:25> Discharge Date/Time: 02/13/21 18:00 <Trevon Vega MD - Last Filed: 02/20/21 07:25>
--- NOTE | 2021-02-12 14:17 | MHC.CM.PN ---
Male 55 DX Chest pain. Patient is accepted at [facility] pending auth, from [facility]. Cm will follow.
[2021-02-12 16:19] LABS: Glucose, Whole Blood 215 mg/dL (60-115)
--- NOTE | 2021-02-12 16:45 | HO.PM.IMPN ---
Subjective Subjective Date of Service: 02/12/21 Interval History: chest pain improved no dyspnea Review of Systems Review of Systems: Yes all other systems are reviewed and are negative Physical Exam Vital Signs: Vital Signs: Last Vital Signs Temp 98 F 02/12/21 15:52 Pulse 87 02/12/21 15:52 Resp 18 02/12/21 15:52 BP 112/72 02/12/21 15:52 Pulse Ox 95 02/12/21 15:52 Body Mass Index 54.2 Gen: in no acute distress HEENT: sclera anicteric, moist mucus membranes Neck: supple Lungs: clear to auscultation bilaterally Heart: regular rate and rhythm, no murmurs Abd: soft, morbidly obese, non-tender, non-distended Ext: no edema Skin: warm/well-perfused Neuro: alert and oriented x3, L side weak from prior CVA Psych: appropriate affect Objective Data Active Medications Acetaminophen (Acetaminophen 325 Mg Tablet) 650 mg PO Q6H PRN PRN Reason: Pain, Mild (Pain Scale 1-3) Last Admin: 02/11/21 20:42 Dose: 650 mg Documented by: BRANT Al Hydroxide/Mg Hydroxide (Magnesium Hydrox/Alum Hydrox 30 Ml Oral.Susp) 30 ml PO Q4H PRN PRN Reason: Heartburn/Nausea Amitriptyline HCl (Amitriptyline Hcl 50 Mg Tablet) 50 mg PO DAILY [facility] Last Admin: 02/12/21 08:28 Dose: 50 mg Documented by: MK Aspirin (Aspirin 81 Mg Tab.Chew) 81 mg PO DAILY [facility] Last Admin: 02/12/21 08:27 Dose: 81 mg Documented by: MK Atorvastatin Calcium (Atorvastatin Calcium 40 Mg Tablet) 40 mg PO BEDTIME [facility] Last Admin: 02/11/21 20:43 Dose: 40 mg Documented by: BRANT Buprenorphine/Naloxone (Buprenorphine/Naloxone 8/2 Mg Film) 1 film SUBLINGUAL DAILY [facility] Last Admin: 02/12/21 08:33 Dose: 1 film Documented by: MK Enoxaparin Sodium (Enoxaparin Sodium 40 Mg/0.4 Ml Syringe) 40 mg SUBCUT DAILY [facility] Last Admin: 02/12/21 08:32 Dose: 40 mg Documented by: MK Furosemide (Furosemide 20 Mg Tablet) 20 mg PO DAILY [facility]; Protocol Last Admin: 02/12/21 08:27 Dose: 20 mg Documented by: MK Glyburide (Glyburide 5 Mg Tablet) 5 mg PO DAILY [facility] Last Admin: 02/12/21 08:30 Dose: 5 mg Documented by: MK Insulin Glargine (Insulin Glargine,Hum.Rec.Anlog 100 Unit/Ml 10 Ml Vial) 20 unit SUBCUT DAILY [facility] Last Admin: 02/12/21 08:30 Dose: 20 unit Documented by: MK Insulin Human Lispro (Insulin Lispro 100 Unit/Ml 3 Ml Vial) 0 unit SUBCUT QIDACHS [facility]; Protocol Last Admin: 02/12/21 16:29 Dose: 4 unit Documented by: MK Lidocaine (Lidocaine 4 % Patch Adh..Patch) 1 patch TRANSDERMA DAILY [facility]; Protocol Last Admin: 02/12/21 08:34 Dose: 1 patch Documented by: MK Lisinopril (Lisinopril 20 Mg Tablet) 20 mg PO DAILY [facility]; Protocol Last Admin: 02/12/21 08:26 Dose: 20 mg Documented by: MK Melatonin (Melatonin 3 Mg Tablet) 6 mg PO BEDTIME PRN PRN Reason: Insomnia Last Admin: 02/11/21 20:42 Dose: 6 mg Documented by: BRANT Nitroglycerin (Nitroglycerin 0.4 Mg Tab.Subl) 0.4 mg SUBLINGUAL Q5MX3 PRN PRN Reason: chest pain Last Admin: 02/10/21 11:18 Dose: 0.4 mg Documented by: MURIEL Pt Own Med ( Ertugliflozin 15 Mg Tablet) 15 each PO DAILY [facility] Last Admin: 02/12/21 08:37 Dose: 15 each Documented by: MK Sodium Chloride (0.9 % Sodium Chloride Flush 3 Ml Syringe) 3 ml IVFLUSH QSHIFT [facility] Last Admin: 02/12/21 00:21 Dose: 3 ml Documented by: BRANT Sodium Chloride (0.9 % Sodium Chloride Flush 3 Ml Syringe) 3 ml IVFLUSH QSHIFT [facility] Last Admin: 02/12/21 16:31 Dose: 3 ml Documented by: MK Labs CBC & Chem 7: 02/08/21 23:37 02/12/21 08:20 Labs: Laboratory Results - last 24 hr 02/11/21 02/12/21 02/12/21 20:25 07:17 08:20 Anion Gap 12 Estim Creat Clear Calc 95.2 Estimated GFR > 60 POC Glucose 280 H 193 H Random Glucose 256 H Calcium 8.9 D B-Natriuretic Peptide 02/12/21 02/12/21 02/12/21 08:20 10:46 16:08 Anion Gap Estim Creat Clear Calc Estimated GFR POC Glucose 283 H 215 H Random Glucose Calcium B-Natriuretic Peptide < 10 TTE - Moderately increased left ventricular cavity size. ? - The left ventricular systolic function is severely decreased.? The visually estimated ejection fraction is between 20-25%.? ? ? - Normal right ventricular cavity size and systolic function.? ? Assessment and Plan (1) Chest pain: Status: Acute Assessment and Plan: hospital d#4 55yo M with DM2, HTN, HLD, prior CVA, NICM LVEF of 30-35% in 2016 with negative ischemic workup) obesity presenting with chest pain, mildly increased troponin Utox positive for fentanyl+ cocaine LVEF worse at 20-25% # atypical chest pain - Cardiology consulted; likely musculoskeletal + cocaine - lidocaine patch # NICM # chronic HFrEF - continue ASA, statin; no b-laura given cocaine abuse; continue lisinopril - not in decompensated HF - needs close Cardiology f/u - likely due to cocaine; counseled # HTN - lisinopril # HLD - statin # uncontrolled DM2, A1c 11.9 - glyburide, correction-dose lispro; started basal glargine insulin; also on ertugliozin as outpt # isolated +HBc - sent HBV DNA viral load, pending at time of discharge # morbid obesity - t/c outpt bariatrics evaluation # opioid use disorder - back on Suboxone # cocaine abuse - CARE Team + Addiction Med consults - counseled on cardiac + other risks of cocaine # VTE ppx - LMWH # dispo - homeless - qualifies for STR; awaiting authorization; has bed [facility] Quality Stroke Does the patient have a stroke diagnosis?: No VTE Prior VTE?: No VTE Risk Level:: Medical - moderate - high VTE Device Contraindication: Treatment Not Indicated VTE Drug Contraindication: N/A - Med Ordered
[2021-02-12 20:15] LABS: Glucose, Whole Blood 254 mg/dL (60-115)
[2021-02-12] MEDS: Atorvastatin Calcium 40 MG TABLET PO (21:07)
[2021-02-12] MEDS: Melatonin 3 MG TABLET 6 MG PO (21:08)
[2021-02-12] MEDS: Acetaminophen 325 MG TABLET 650 MG PO (21:08)
[2021-02-13] VITALS (7 sets, daily range): BP systolic 111–134; BP diastolic 63–76; PULSE 76–90; RESP 18–20; TEMP 36.2–37; O2SAT 94–96
[2021-02-13 07:24] LABS: Glucose, Whole Blood 226 mg/dL (60-115)
[2021-02-13] MEDS: Insulin Lispro 100 UNIT/ML 3 ML VIAL SUBCUT ×3 (08:04→16:59)
[2021-02-13] MEDS: 0.9 % Sodium Chloride Flush 3 ML SYRINGE IVFLUSH (08:05)
[2021-02-13] MEDS: Insulin Glargine,Hum.rec.anlog 100 UNIT/ML 10 ML VIAL 20 UNIT SUBCUT (08:05)
[2021-02-13] MEDS: Enoxaparin Sodium 40 MG/0.4 ML SYRINGE SUBCUT (08:05)
[2021-02-13] MEDS: Amitriptyline HCl 50 MG TABLET PO (08:06)
[2021-02-13] MEDS: Aspirin 81 MG TAB.CHEW PO (08:06)
[2021-02-13] MEDS: glyBURIDE 5 MG TABLET PO (08:06)
[2021-02-13] MEDS: Buprenorphine/Naloxone 8/2 mg FILM 1 FILM SUBLINGUAL (08:06)
[2021-02-13] MEDS: Lidocaine 4 % Patch ADH..PATCH 1 PATCH TRANSDERMA (08:06)
[2021-02-13] MEDS: Furosemide 20 MG TABLET PO (08:06)
[2021-02-13] MEDS: lisinopriL 20 MG TABLET PO (08:07)
[2021-02-13 11:20] LABS: Glucose, Whole Blood 229 mg/dL (60-115)
--- NOTE | 2021-02-13 11:53 | MHC.RECOVRN ---
Pt plan to transfer to [facility]. MQ to send 4 week Suboxone script to [facility] per CM. [facility] will reach out to patient at [facility] to continue care. CM aware.
--- NOTE | 2021-02-13 12:44 | MHC.CM.PN ---
Male 55 DX Chest pain [facility] has accepted patient pending Insurance authorization. Additional documentation was requested. PT daily note was sent for review. Authorization is still pending. CM will follow.
--- NOTE | 2021-02-13 14:09 | MHC.CM.PN ---
Addendum entered by Aliya Darnell 02/13/21 15:54: Patient was living at [facility] prior to admit @ [facility]. The patient qualified for STR. Referrals wer sent to the 2 facilities that offer Suboxone therapy. He has been accepted by [facility]. The patient is agreeable to transfer today to [facility]. Clothing has been provided to the patient. No paper scripts were provided; because he will receive all meds @ [facility]. Patient will be served dinner prior to his departure. Addendum entered by Aliya Darnell 02/13/21 14:39: negative covid result sent to [facility] via [facility]. [facility] was called with referral. [facility] could not provide transportation until after 6pm; which is to late to send the patient to accepting facility. Original Note: Male 55 DX Chest pain. He has been accepted at [facility]. He will transport 4:00pm via BLS.
[2021-02-13 14:18] LABS: COVID-19 Test Negative (Negative)
[2021-02-13 16:13] LABS: Glucose, Whole Blood 197 mg/dL (60-115)
[2021-02-14 13:57] LABS: Hepatitis B Viral DNA Qn - cp <1.00 NOT DETECTED Log IU/mL (NOT DETECTED); Hepatitis B Viral DNA Qn-IU/mL <10 NOT DETECTED IU/mL (NOT DETECTED)
== END 2021-02-13 18:00 | disposition skilled nursing facility (03) | DRG 816 ==
LOC: HO.ED 02-09 01:16 → HO.EDOVER 02-09 04:44 → HO.IMC 02-09 14:10
PROVIDERS: Family Medicine; Admitting Provider Internal Medicine; Emergency Provider Emergency Medicine Emergency Medical Services; Visit Provider Physician Assistant Medical
DX: T40.5X1A Poisoning by cocaine, accidental (unintentional), initial encounter (principal); E11.8 Type 2 diabetes mellitus with unspecified complications; I42.8 Other cardiomyopathies; E66.01 Morbid (severe) obesity due to excess calories; F11.20 Opioid dependence, uncomplicated; B16.9 Acute hepatitis B without delta-agent and without hepatic coma; R07.89 Other chest pain; Y92.9 Unspecified place or not applicable; I11.0 Hypertensive heart disease with heart failure; I50.22 Chronic systolic (congestive) heart failure; Z68.43 Body mass index [BMI] 50.0-59.9, adult; F14.10 Cocaine abuse, uncomplicated; E78.5 Hyperlipidemia, unspecified; F17.210 Nicotine dependence, cigarettes, uncomplicated; Z71.6 Tobacco abuse counseling; Z20.822 Contact with and (suspected) exposure to COVID-19; Z59.01 Sheltered homelessness; Z86.73 Personal history of transient ischemic attack (TIA), and cerebral infarction without residual deficits; Z88.0 Allergy status to penicillin; Z79.4 Long term (current) use of insulin; Z79.82 Long term (current) use of aspirin; Z79.899 Other long term (current) drug therapy
CPT/HCPCS: 36415; 71045; 80048; 80061; 80307; 82947; 83036; 83880; 84484; 85025; 86704; 86705; 86706; 86803; 87340; 87389; 87517; 87522; 87635; 93005; 93306; 94660; 97110; 97116; 97162; 99285; J1650; Q9957

== ENCOUNTER → 2021-03-05 14:19 | Outpatient (BNVA) | payer OTHER, SELFPAY | PROVIDERS: Visit Provider Nurse Practitioner Family | DX: I50.22 Chronic systolic (congestive) heart failure (principal); I20.0 Unstable angina; I11.0 Hypertensive heart disease with heart failure; I35.0 Nonrheumatic aortic (valve) stenosis; E78.5 Hyperlipidemia, unspecified; R07.89 Other chest pain; E11.9 Type 2 diabetes mellitus without complications; E66.01 Morbid (severe) obesity due to excess calories; F17.210 Nicotine dependence, cigarettes, uncomplicated; F14.10 Cocaine abuse, uncomplicated; F11.10 Opioid abuse, uncomplicated; Z68.43 Body mass index [BMI] 50.0-59.9, adult; Z86.73 Personal history of transient ischemic attack (TIA), and cerebral infarction without residual deficits; Z88.0 Allergy status to penicillin; Z79.4 Long term (current) use of insulin; Z79.899 Other long term (current) drug therapy | CPT/HCPCS: 99212 ==

== ENCOUNTER → 2021-04-02 12:11 | Outpatient (BNVA) | payer MEDICAID, SELFPAY | PROVIDERS: Visit Provider Nurse Practitioner Family | DX: I50.22 Chronic systolic (congestive) heart failure (principal); I42.8 Other cardiomyopathies; R07.89 Other chest pain; E66.01 Morbid (severe) obesity due to excess calories; F14.10 Cocaine abuse, uncomplicated | CPT/HCPCS: 99212 ==

== ENCOUNTER 2021-05-15 11:16 | Outpatient (REF) | payer MEDICAID, SELFPAY ==
--- NOTE | ~2021-05-15 | XR_ITS ---
EXAMINATION: XR TIBIA AND FIBULA, LEFT CLINICAL INFORMATION: Cellulitis of left lower limb COMPARISON: None TECHNIQUE: AP and lateral views of the left tibia and fibula were obtained. FINDINGS: There is swelling in the anterior soft tissues. No soft tissue gas No radiographic evidence of osteomyelitis. XR/XR tibia fibula LT 2V IMPRESSION: No radiographic evidence of osteomyelitis.
== END 2021-05-15 11:17 | disposition home or self-care (01) ==
LOC: HO.XRAY 11:16
PROVIDERS: Visit Provider Nurse Practitioner
DX: L03.116 Cellulitis of left lower limb (principal)
CPT/HCPCS: 73590

== ENCOUNTER → 2021-08-14 09:54 | Outpatient (REF) | payer MEDICAID, SELFPAY | LOC: HO.SL 09:54 | PROVIDERS: PCP Nurse Practitioner; Visit Provider Nurse Practitioner Family | DX: G47.10 Hypersomnia, unspecified (principal); I42.8 Other cardiomyopathies; E66.01 Morbid (severe) obesity due to excess calories | CPT/HCPCS: 95806 ==

== ENCOUNTER → 2021-10-13 11:32 | Outpatient (BNVA) | payer MEDICAID, SELFPAY | PROVIDERS: PCP Nurse Practitioner; Referring Provider Nurse Practitioner; Visit Provider Internal Medicine | DX: I42.8 Other cardiomyopathies (principal); I50.22 Chronic systolic (congestive) heart failure | CPT/HCPCS: 93005; 99212 ==

== ENCOUNTER 2021-11-17 09:48 | Outpatient (REF) | payer MEDICAID, SELFPAY ==
[2021-11-17 10:47] LABS: Hematocrit 39.3 % (42.0-52.0); Mean Corpuscular HGB Conc 30.5 g/dl (31.0-36.0); Mean Corpuscular Hemoglobin 28.4 pg (27.0-33.0); Mean Corpuscular Volume 93.1 fL (80.0-98.0); Mean Platelet Volume 10.6 fL (9.4-12.4); Platelet Count 221 X10*3/uL (160-400); Red Blood Count 4.22 X10*6/uL (4.60-5.80); White Blood Count 10.3 X10*3/uL (4.8-10.8)
[2021-11-17 10:50] LABS: INTERNATIONAL NORM RATIO 0.9 (0.9-1.1); Prothrombin Time 10.7 SEC (10.0-13.1)
[2021-11-17 11:05] LABS: Anion Gap 15 (12-20); B Type Natriuretic Peptide < 10 pg/mL (<100); Blood Urea Nitrogen 23 mg/dL (9-16); Calcium 8.8 mg/dL (8.4-10.2); Carbon Dioxide 23 mmol/L (22-29); Chloride 105 mmol/L (96-108); Estimated Glomerular Filt Rate 40; Glucose Random 198 mg/dL (60-115); Potassium 4.5 mmol/L (3.3-5.1); Sodium 138 mmol/L (135-145)
== END 2021-11-17 09:49 | disposition home or self-care (01) ==
LOC: HO.LAB 09:48
PROVIDERS: PCP Nurse Practitioner; Visit Provider Internal Medicine
DX: I50.22 Chronic systolic (congestive) heart failure (principal); I25.10 Atherosclerotic heart disease of native coronary artery without angina pectoris
CPT/HCPCS: 36415; 80048; 83880; 85027; 85610

== ENCOUNTER 2021-12-10 13:31 | Emergency (ER) | payer MEDICAID, SELFPAY ==
--- NOTE | ~2021-12-10 | XR_ITS ---
EXAMINATION: XR CHEST CLINICAL INFORMATION: Chest pain COMPARISON: None TECHNIQUE: Frontal view of the chest was obtained. FINDINGS: The heart is enlarged. The lungs are mildly hypoinflated. There is no evidence of gross CHF. The costophrenic angle on the left is not included on the radiograph. Left lower lobe increased opacity is present suggesting atelectasis or infiltrate. XR/XR chest 1V IMPRESSION: Increased opacity at the left lung base as described above.
[2021-12-10 13:37] VITALS: BP 97/46; PULSE 85; RESP 20; TEMP 36.7; O2SAT 96; BMI 52.2
--- NOTE | 2021-12-10 13:41 | ECG_ITS ---
Test Reason : cp Blood Pressure : / mmHG Vent. Rate : 078 BPM Atrial Rate : 078 BPM P-R Int : 154 ms QRS Dur : 118 ms QT Int : 440 ms P-R-T Axes : 059 -27 -86 degrees QTc Int : 501 ms Normal sinus rhythm Non-specific intra-ventricular conduction delay Minimal voltage criteria for LVH, may be normal variant ( Abhilash product ) T wave abnormality, consider inferolateral ischemia Prolonged QT Abnormal ECG When compared with ECG of 09-FEB-2021 03:38, No significant change was found Referred By: Generic ED Physician Electronically Signed By:MARY LEDESMA MD
[2021-12-10 14:06] LABS: MANUAL DIFF FLAG NO
[2021-12-10 14:07] LABS: Basophils Percent Auto 0.2 % (0-2); Eosinophils Absolute Auto 0.3 X10*3/uL (0.0-0.4); Eosinophils Percent Auto 2.5 % (0-4); Hematocrit 37.6 % (42.0-52.0); Hemoglobin 12.1 g/dl (14.0-18.0); Imm Gran Abs Auto 0.04 X10*3/uL (0.00-0.03); Imm Gran Pct Auto 0.4 % (0.0-0.4); Lymphocytes Absolute Auto 2.4 X10*3/uL (1.2-4.9); Lymphocytes Percent Auto 24.5 % (20-40); Mean Corpuscular HGB Conc 32.2 g/dl (31.0-36.0); Mean Corpuscular Hemoglobin 29.4 pg (27.0-33.0); Mean Corpuscular Volume 91.5 fL (80.0-98.0); Mean Platelet Volume 10.8 fL (9.4-12.4); Monocytes Absolute Auto 0.5 X10*3/uL (0.1-1.2); Monocytes Percent Auto 5.4 % (2-11); Neutrophils Absolute Auto 6.7 x10*3/uL (2.0-8.3); Platelet Count 206 X10*3/uL (160-400); Red Blood Count 4.11 X10*6/uL (4.60-5.80); Red Cell Distribution Width 13.7 % (11.0-16.0)
[2021-12-10 14:23] LABS: Anion Gap 15 (12-20); Blood Urea Nitrogen 22 mg/dL (9-16); Calcium 8.7 mg/dL (8.4-10.2); Carbon Dioxide 31 mmol/L (22-29); Chloride 97 mmol/L (96-108); Creatinine Clr Calc Pharmacy 55.8; Estimated Glomerular Filt Rate 36; Glucose Random 307 mg/dL (60-115); Potassium 3.5 mmol/L (3.3-5.1); Sodium 139 mmol/L (135-145)
[2021-12-10 14:28] LABS: Troponin-I High Sensitivity 21.5 ng/L (<3.5-35.0)
--- NOTE | 2021-12-10 14:44 | ED.CHESTPAIN ---
HPI - Chest Pain General Chief Complaint: Chest Pain Stated Complaint: heart problems Time Seen by Provider: 12/10/21 14:44 Source: patient and old records reviewed Mode of arrival: ambulatory Limitations: language barrier (Korean speaking only, template cutter used) History of Present Illness HPI narrative: 56-year-old male who was referred to the emergency department from [facility] for evaluation of chest pain, cocaine and heroin use, and change in his EKG. The patient went to [facility] for detox clearance. He did admit to using cocaine and he had an EKG which showed T-wave inversions in the inferior and lateral leads compared to a baseline EKG from 10/13/2021 therefore he was referred to the emergency department for evaluation. The patient states that 2 days prior he did in 2 days prior he did use crack cocaine approximately 4 days. He also states that he used intranasal heroin. He states that yesterday at around 18:00 hours he developed chest pain. He states the chest pain came on gradually and progressively got worse. Patient points to his left chest when asked to localize the pain. He states that the pain is a pins and needle sensation the last 2 minutes, resolved and then can back frequently throughout the day yesterday and today. He states that the pain was 8/10 at its worst. He states that it has been very difficult to sleep secondary to his pain. He denied fever, chills, rhinorrhea, sore throat, cough, shortness of breath, dyspnea on exertion, nausea or diarrhea. He states that 1 episode of vomiting yesterday. MD complaint: chest pain Onset (ago): day(s) (2) Timing of current episode: episodic (Last 2 minutes, resolved and comes back with only yesterday and today) Prior episodes: No Onset: during rest Pain location: left chest Pain radiation: none Severity: severe Pain scale (0-10): 8 Quality: sharp (Needle pain) Relieving factors: nothing Exacerbating factors: nothing Associated symptoms: vomiting (X1 episode yesterday) Treatment prior to arrival: none Risk Factors Coronary artery disease risk factors: diabetes and cocaine use Related Data Home Medications Medication Instructions Recorded Confirmed amitriptyline 50 mg tablet 50 mg PO DAILY 02/09/21 04/02/21 ertugliflozin 15 mg tablet 15 mg PO QAM 02/09/21 04/02/21 furosemide 20 mg tablet 20 mg PO DAILY 02/09/21 10/13/21 glyburide 5 mg tablet 5 mg PO DAILY 02/09/21 04/02/21 lisinopril 20 mg tablet 20 mg PO DAILY 02/09/21 10/13/21 chlorthalidone 25 mg tablet 25 mg PO DAILY 10/13/21 10/13/21 dulaglutide 4.5 mg/0.5 mL mg subcut QWEEK 10/13/21 10/13/21 subcutaneous pen injector (Trulicity) empagliflozin 10 mg tablet 10 mg PO QAM diabetes mellitus 10/13/21 10/13/21 (Jardiance) metformin 1,000 mg tablet 1,000 mg PO 10/13/21 10/13/21 tamsulosin 0.4 mg capsule 0.4 mg PO DAILY 10/13/21 10/13/21 Previous Rx's Medication Instructions Recorded aspirin 81 mg chewable tablet 81 mg PO DAILY #30 tabs 02/12/21 atorvastatin 40 mg tablet 40 mg PO BEDTIME #30 tabs 02/12/21 insulin glargine 100 unit/mL 20 unit (0.2 mL) subcut DAILY #10 02/12/21 subcutaneous solution (Lantus mL U-100 Insulin) lidocaine 4 % topical patch 1 patch transdermal DAILY #30 ea 02/12/21 (Lidocaine Pain Relief) nicotine (polacrilex) 2 mg gum 2 mg buccal Q1H PRN nicotine 02/12/21 cravings #100 ea buprenorphine 8 mg-naloxone 2 mg 1 film sublingual DAILY #28 ea 02/13/21 sublingual film (Suboxone) Allergies Allergy/AdvReac Type Severity Reaction Status Date / Time Penicillins [PCN] Allergy Intermediate HIVES Verified 12/10/21 13:37 [facility] Past Medical History [facility] Narrative: Past medical history: Obtained from [facility] referral note: Substance abuse-THC, cocaine, heroin, diabetes, hepatitis-B carrier, vitamin-D deficiency, nonischemic cardiomyopathy LVEF 20-25% , hypertension, diabetic retinopathy, dyslipidemia, depression, chronic headaches, morbid obesity. Social history: Patient smokes 3-4 cigarettes per day times 38 years. He denies alcohol use. The patient states that he uses heroin intranasally, 2 bags 4 to 5 times a day. Medical History (Updated 12/10/21 @ 17:13 by Osmin Mei MD) Chest pain Diabetes Essential hypertension History of CVA (cerebrovascular accident) HTN (hypertension) Morbid obesity Type 2 diabetes mellitus with unspecified complications Unstable angina Surgical History (Updated 10/13/21 @ 11:54 by RAINER Cespedes) No pertinent past surgical history Family History Family History Other CAD (coronary artery disease) Diabetes HTN (hypertension) Social History Social History Household Members: None Housing: Homeless Do you presently have visiting nurse or other home services: No Patient Tobacco Use Status: Current everyday Tobacco user Tobacco use type: Cigarette Substance Use Type: Heroin Advance Directives: Yes Advance Directives Information Provided: No Advance Directives on File: No service: No Current occupational status: unemployed Physical Exam Vital Signs: Vital Signs: Last Vital Signs Temp 98.0 F 12/10/21 13:37 Pulse 85 12/10/21 13:37 Resp 20 12/10/21 13:37 BP 97/46 L 12/10/21 13:37 Pulse Ox 96 12/10/21 13:37 O2 Del Method 12/10/21 13:37 BMI result Body Mass Index 52.2 Const: Other: Awake, alert, male patient, Korean speaking only, very pleasant and cooperative, does not appear to be in distress, BMI 52.3 HEENT: Head: Yes normal to inspection, Yes normocephalic and Yes atraumatic Ears: external ears normal General nose exam: Normal external nose present Face and sinus: Yes normal facial exam Mouth: Normal oral and palatal mucosa present Throat: Yes posterior oropharynx normal Eyes: General: appearance normal, both eyes and all related structures Pupils: Equal, round and reactive pupils present Neck: Neck: Yes normal visual inspection, Yes no lymphadenopathy, Yes trachea midline and Yes supple Chest: Chest palpation & inspection: normal inspection of the chest and tenderness (Left chest wall, moderate tenderness) Resp: Effort & Inspection: normal respiratory effort and able to speak in complete sentences Auscultation: clear to auscultation bilaterally Cardio: Rate: regular rate Rhythm: regular rhythm Heart sounds: S1 normal heart sound present, S2 normal heart sound present and no murmurs GI: Inspection: Yes normal to inspection Palpation (GI): Soft to palpation, nontender and no guarding Auscultation: normal bowel sounds : General: Yes no CVA tenderness Back/Spine/Pelvis: Back: no CVA tenderness Skin: General skin exam: no rashes or lesions noted Neuro: Cranial nerves: Yes CN's II-XII intact bilaterally and Yes Equal, round and reactive pupils present Cognition (Neuro): normal cognition Motor exam (neuro): 5/5 motor strength present throughout Extrem: General: Yes normal to inspection Psych: Appearance: grossly normal Speech and movement: Normal speech and movement present Affect: normal affect Attitude: cooperative Thought process: Normal thought process present Thought content: Normal thought content present Course Course Course Narrative: 56-year-old male with multiple cardiac risk factors including diabetes mellitus, congestive heart failure, obesity, cocaine use with known nonischemic cardiomyopathy with EF of 20-25% who was referred to the emergency department for evaluation of chest pain after using cocaine a change in his EKG compared to EKG done 10/13/2021. Patient's chest pain is been brief lasting 2 minutes but occurring frequently yesterday and today. He had 1 episode of vomiting yesterday with no other associated symptoms. Vital signs revealed a blood pressure of 97/46 otherwise were unremarkable. Physical examination did reveal moderate left-sided chest wall tenderness. 1710: Laboratory evaluation: BUN elevated 22, creatinine elevated 196, glucose elevated 307. Troponin at 1400 was detectable but not elevated at 21.5. Twelve EKG: Inverted T-waves 1, 3, AVF, V4 through V6 of compared to EKG dated 10/13/2021 the inferior T-wave changes are new Chest x-ray: Pending The patient was given aspirin 324 mg to chew and Toradol 60 mg IM. The patient's repeat troponin is pending. Patient's care was turned over to my colleague, Dr. Manriquez [facility] - Chest Pain Lab Data Attestation: I reviewed the patient's lab results. Result diagrams: 12/10/21 13:55 12/10/21 13:55 Labs: Lab Results 12/10/21 12/10/21 12/10/21 Range/Units 13:55 13:55 13:55 WBC 10.0 (4.8-10.8) X10*3/uL RBC 4.11 L (4.60-5.80) X10*6/uL Hgb 12.1 L (14.0-18.0) g/dl Hct 37.6 L (42.0-52.0) % MCV 91.5 (80.0-98.0) fL MCH 29.4 (27.0-33.0) pg MCHC 32.2 (31.0-36.0) g/dl RDW 13.7 (11.0-16.0) % Plt Count 206 (160-400) X10*3/uL MPV 10.8 (9.4-12.4) fL Immature Gran % (Auto) 0.4 (0.0-0.4) % Neut % (Auto) 67.0 (45-73) % Lymph % (Auto) 24.5 (20-40) % [place] % (Auto) 5.4 (2-11) % Eos % (Auto) 2.5 (0-4) % Baso % (Auto) 0.2 (0-2) % Lymph # (Auto) 2.4 (1.2-4.9) X10*3/uL [place] # (Auto) 0.5 (0.1-1.2) X10*3/uL Eos # (Auto) 0.3 (0.0-0.4) X10*3/uL Baso # (Auto) 0.0 (0.0-0.2) X10*3/uL Abs Immat Gran (auto) 0.04 H (0.00-0.03) X10*3/uL Absolute Neuts (auto) 6.7 (2.0-8.3) x10*3/uL Absolute Nucleated RBC 0.000 (0.0-0.012) X10*3/uL Nucleated RBC % (auto) 0.0 (0.0-0.2) /100WBC Sodium 139 (135-145) mmol/L Potassium 3.5 D (3.3-5.1) mmol/L Chloride 97 (96-108) mmol/L Carbon Dioxide 31 H (22-29) mmol/L Anion Gap 15 (12-20) BUN 22 H (9-16) mg/dL Creatinine 1.96 H (0.5-1.4) mg/dL Estim Creat Clear Calc 55.8 Estimated GFR 36 Random Glucose 307 H D (60-115) mg/dL Calcium 8.7 (8.4-10.2) mg/dL Troponin I High Sens 21.5 (<3.5-35.0) ng/L ECG Data ECG #1: Attestation: I personally reviewed and interpreted this ECG as follows: Interpretation: 1348: Normal sinus rhythm rate of 78, normal MT interval, prolonged QRS of 118 milliseconds, prolonged QTC 501 milliseconds, inverted T-wave in lead 1, 2, AVF, V4 through V6, no ST segment elevation, no ST segment depression, nonspecific interventricular conduction delay, no PVCs, no PACs. Compared to an EKG sent in to the emergency department from [facility] the inferior T-wave inversions are new. Medical Center dated 10/13/2021 the T-wave inversions are new. Discharge Plan Discharge Clinical Impression: Chest pain, Cocaine use, Abnormal ECG Patient Disposition: Still a Patient Prescriptions: No Action glyburide 5 mg Tablet 5 mg PO DAILY lisinopril 20 mg Tablet 20 mg PO DAILY amitriptyline 50 mg Tablet 50 mg PO DAILY furosemide 20 mg Tablet 20 mg PO DAILY ertugliflozin 15 mg Tablet 15 mg PO QAM atorvastatin 40 mg Tablet 40 mg PO BEDTIME Qty: 30 0RF Lantus U-100 Insulin 100 unit/mL Solution 20 unit subcut DAILY Qty: 10 0RF lidocaine [Lidocaine Pain Relief] 4 % Adhesive Patch,Medicated 1 patch transdermal DAILY Qty: 30 0RF Protocol: Apply to: Apply to: sternum aspirin 81 mg Tablet,Chewable 81 mg PO DAILY Qty: 30 0RF nicotine (polacrilex) 2 mg gum 2 mg buccal Q1H PRN (Reason: nicotine cravings) Qty: 100 0RF buprenorphine-naloxone [Suboxone] 8-2 mg film 1 film sublingual DAILY Qty: 28 0RF chlorthalidone 25 mg tablet 25 mg PO DAILY Trulicity 4.5 mg/0.5 mL pen injector subcut QWEEK tamsulosin 0.4 mg capsule 0.4 mg PO DAILY metformin 1,000 mg tablet 1,000 mg PO Jardiance 10 mg tablet 10 mg PO QAM
[2021-12-10] MEDS: Aspirin 81 MG TAB.CHEW 324 MG PO (16:37)
[2021-12-10] MEDS: Ketorolac Tromethamine 60 MG/2 ML VIAL IM (17:19)
[2021-12-10 18:24] LABS: Troponin-I High Sensitivity 23.1 ng/L (<3.5-35.0)
[2021-12-10 20:34] VITALS: BP 110/48; PULSE 59; RESP 16; TEMP 36.8; O2SAT 98
[2021-12-10 22:07] VITALS: BP 101/50; PULSE 70; RESP 15; TEMP 36.8; O2SAT 98
[2021-12-10 22:44] LABS: COVID-19 Test Negative (Negative)
--- NOTE | 2021-12-10 23:21 | PC.NURSE ---
patient was given food and fluids .
== END 2021-12-10 23:25 | disposition home or self-care (01) ==
PROVIDERS: Internal Medicine; Emergency Provider Emergency Medicine Emergency Medical Services; PCP Nurse Practitioner
DX: R07.89 Other chest pain (principal); R94.31 Abnormal electrocardiogram [ECG] [EKG]; F11.10 Opioid abuse, uncomplicated; F17.210 Nicotine dependence, cigarettes, uncomplicated; Z20.822 Contact with and (suspected) exposure to COVID-19; Z71.6 Tobacco abuse counseling; Z79.899 Other long term (current) drug therapy
CPT/HCPCS: 36415; 71045; 80048; 84484; 85025; 87635; 93005; 96372; 99284; 99285; J1885

== ENCOUNTER 2022-11-03 10:07 | Emergency (ER) | payer MEDICAID, SELFPAY ==
--- NOTE | ~2022-11-03 | XR_ITS ---
EXAMINATION: XR CHEST CLINICAL INFORMATION: V. Tach. COMPARISON: 12/10/2021 chest radiograph. TECHNIQUE: Frontal view of the chest was obtained. FINDINGS: No significant abnormality is noted involving the heart, lungs, mediastinum, bony thorax or soft tissues. XR/XR chest 1V IMPRESSION: No acute cardiopulmonary process.
[2022-11-03 10:09] VITALS: BP 172/73; BP 192/84; PULSE 56; PULSE 58; RESP 16; TEMP 37.3; O2SAT 100; O2SAT 98; BMI 38.3
--- NOTE | 2022-11-03 10:46 | ECG_ITS ---
Test Reason : vfib Blood Pressure : / mmHG Vent. Rate : 081 BPM Atrial Rate : 081 BPM P-R Int : 166 ms QRS Dur : 112 ms QT Int : 384 ms P-R-T Axes : 067 -18 -71 degrees QTc Int : 446 ms Sinus rhythm with Premature atrial complexes with Aberrant conduction Possible Left atrial enlargement Left ventricular hypertrophy with repolarization abnormality ( Abhilash product ) Subtle ST elevation in I and aVL Abnormal ECG When compared with ECG of 10-DEC-2021 13:48, Aberrant conduction is now Present ST now depressed in Inferior leads ST elevation now present in I and aVL QT has shortened Referred By: Generic ED Physician Electronically Signed By:Janes Rice
[2022-11-03] MEDS: Magnesium Sulfate/H2O 2 GM/50 ML PIGGYBACK IV (10:55)
[2022-11-03 10:57] LABS: Glucose, Whole Blood 173 mg/dL (60-115)
--- NOTE | 2022-11-03 11:00 | ED_ITS ---
HPI - Fall General Chief Complaint: Fall Stated Complaint: FALL AT HOME Time Seen by Provider: 11/03/22 10:18 Source: EMS Mode of arrival: EMS History of Present Illness HPI Narrative: 57 year old male with history of T2DM, obesity, chronic HFrEF, polysubstance abuse presents today via EMS after being found down at his home since last nig ht. Per EMS, patient was covered in feces upon arrival. He was alert and complaining of chest pain. Upon our arrival into [facility] bed 5, patient was in cardiac arrest and in ventricular fibrillation. Onset (ago): hour(s) Related Data Home Medications Medication Instructions Recorded Confirmed amitriptyline 50 mg tablet 50 mg PO DAILY 02/09/21 04/02/21 ertugliflozin 15 mg tablet 15 mg PO QAM 02/09/21 04/02/21 furosemide 20 mg tablet 20 mg PO DAILY 02/09/21 10/13/21 glyburide 5 mg tablet 5 mg PO DAILY 02/09/21 04/02/21 lisinopril 20 mg tablet 20 mg PO DAILY 02/09/21 10/13/21 chlorthalidone 25 mg tablet 25 mg PO DAILY 10/13/21 10/13/21 dulaglutide 4.5 mg/0.5 mL mg subcut QWEEK 10/13/21 10/13/21 subcutaneous pen injector (Trulicity) empagliflozin 10 mg tablet 10 mg PO QAM diabetes mellitus 10/13/21 10/13/21 (Jardiance) metformin 1,000 mg tablet 1,000 mg PO 10/13/21 10/13/21 tamsulosin 0.4 mg capsule 0.4 mg PO DAILY 10/13/21 10/13/21 Previous Rx's Medication Instructions Recorded aspirin 81 mg chewable tablet 81 mg PO DAILY #30 tabs 02/12/21 atorvastatin 40 mg tablet 40 mg PO BEDTIME #30 tabs 02/12/21 insulin glargine 100 unit/mL 20 unit (0.2 mL) subcut DAILY #10 02/12/21 subcutaneous solution (Lantus mL U-100 Insulin) lidocaine 4 % topical patch 1 patch transdermal DAILY #30 ea 02/12/21 (Lidocaine Pain Relief) nicotine (polacrilex) 2 mg gum 2 mg buccal Q1H PRN nicotine 02/12/21 cravings #100 ea buprenorphine 8 mg-naloxone 2 mg 1 film sublingual DAILY #28 ea 02/13/21 sublingual film (Suboxone) Allergies Allergy/AdvReac Type Severity Reaction Status Date / Time Penicillins [PCN] Allergy Intermediate HIVES Verified 12/10/21 13:37 Review of Systems Review of Systems: Yes Unobtainable due to mental status Neurologic: Denies Sensory deficit (Neuro) FOR[facility]LY [facility] Past Medical History Medical History Chest pain Diabetes Essential hypertension History of CVA (cerebrovascular accident) HTN (hypertension) Morbid obesity Type 2 diabetes mellitus with unspecified complications Unstable angina Surgical History No pertinent past surgical history Family History Family History Other CAD (coronary artery disease) Diabetes HTN (hypertension) Social History Social History Household Members: None Housing: Homeless Do you presently have visiting nurse or other home services: No Patient Tobacco Use Status: Current everyday Tobacco user Tobacco use type: Cigarette Smoked in Last 30 Days: Yes Use of substances other than those prescribed or required for medical reasons: Yes Substance Use Type: Crack/Cocaine Advance Directives: No service: No Current occupational status: unemployed Physical Exam Vital Signs: Vital Signs: Last Vital Signs Temp 99.2 F 11/03/22 10:09 Pulse 60 11/03/22 12:03 Resp 16 11/03/22 12:03 BP 149/64 H 11/03/22 12:03 Pulse Ox 98 11/03/22 12:03 O2 Del Method Room Air 11/03/22 12:03 BMI result Body Mass Index 38.3 Const: Other: obese, toxic appearing male, actively seizing in ED room General: ill appearing; No alert or awake Nutritional Appearance: obese Limitations: altered mental status HEENT: Head: Yes normal to inspection Ears: external ears normal General nose exam: Normal external nose present Mouth: Normal oral and palatal mucosa present and oropharynx normal Throat: Yes posterior oropharynx normal Eyes: General: appearance normal, both eyes and all related structures Neck: Other: supple Neck: Yes normal visual inspection Chest: Chest palpation & inspection: normal inspection of the chest Resp: Auscultation: clear to auscultation bilaterally Cardio: Other: initially in vtach, cardioverted into sinus rhythm, no murmurs. GI: Inspection: Yes normal to inspection Palpation (GI): Soft to palpation, nontender and No hepatosplenomegaly present Auscultation: normal bowel sounds : General: Yes no CVA tenderness Back/Spine/Pelvis: Back: no CVA tenderness Skin: General skin exam: no rashes or lesions noted Neuro: Cranial nerves: Yes CN's II-XII intact bilaterally Motor exam (neuro): 5/5 motor strength present throughout Sensory Exam: No Sensory deficit (Neuro) Extrem: General: Yes normal to inspection Psych: Appearance: grossly normal Course Reevaluation(s) Reevaluation #1: Patient cardioverted x2 with 200j, successful cardioversion with each shock although he want back into vfib after the first shock. Patient was loaded with 150mg of amiodarone and has maintained sinus rhythm. Discussed with Dr. Rice, IV amiodarone maintained, and patient to be transfered to [facility] CCU. Time: 12:16 Reevaluation #2: I spent 60 minutes of critical care, with interventions, assessments, speaking to patient, consultants, and family. Time: 12:16 Medications Administered Generic Name Dose Route Start Last Admin Trade Name Freq PRN Reason Stop Dose Admin Magnesium Sulfate 2 gm in 50 mls @ 25 mls/hr 11/03/22 10:53 11/03/22 11:24 Magnesium Sulfate/H2o IV 11/03/22 12:52 Infused ONCE ONE Infusion Amiodarone HCl 900 mg/ Sodium 518 mls @ 34.533 mls/hr 11/03/22 11:15 11/03/22 11:24 Chloride IVCONT 1 mg/min .Q15H1M JAMIE 34.53 mls/hr Administration Protocol 1 MG/MIN Potassium Chloride 10 meq in 100 mls @ 100 mls/hr 11/03/22 11:45 11/03/22 11:52 Potassium Chloride/H20 IV 11/03/22 13:44 100 mls/hr Q1H JAMIE Administration Discontinued Medications Generic Name Dose Route Start Last Admin Trade Name Freq PRN Reason Stop Dose Admin Amiodarone HCl 150 mg/ 103 mls @ 618 mls/hr 11/03/22 11:07 11/03/22 10:45 Dextrose IV 11/03/22 11:16 618 mls/hr ONCE ONE Administration Medical Decision Making Differential Diagnosis Differential Diagnoses: The differential diagnosis associated with the presentation includes (vfib, torsades, cardiac arrest) Consult Healthcare Provider Management of the patient was discussed with: Parts Sales Representative (Cardiology (Dr. Rice)) Lab Data MDM Lab Attestation statement: I reviewed the patient's lab results. (Notable for elevated white count, low K, hyperglycemia, elevated CPK, low magn, cocaine, fentanyl, and opiates) 11/03/22 10:45 11/03/22 10:45 Labs: Lab Results 11/03/22 11/03/22 11/03/22 Range/Units 10:37 10:45 10:45 WBC 14.1 H (4.8-10.8) X10*3/uL RBC 6.12 H D (4.60-5.80) X10*6/uL Hgb 17.6 D (14.0-18.0) g/dl Hct 53.6 H D (42.0-52.0) % MCV 87.6 (80.0-98.0) fL MCH 28.8 (27.0-33.0) pg MCHC 32.8 (31.0-36.0) g/dl RDW 13.3 (11.0-16.0) % Plt Count 260 D (160-400) X10*3/uL MPV 11.4 (9.4-12.4) fL Immature Gran % (Auto) 0.5 H (0.0-0.4) % Neut % (Auto) 64.7 (45-73) % Lymph % (Auto) 29.1 (20-40) % Scott % (Auto) 5.5 (2-11) % Eos % (Auto) 0.1 (0-4) % Baso % (Auto) 0.1 (0-2) % Lymph # (Auto) 4.1 (1.2-4.9) X10*3/uL Scott # (Auto) 0.8 (0.1-1.2) X10*3/uL Eos # (Auto) 0.0 (0.0-0.4) X10*3/uL Baso # (Auto) 0.0 (0.0-0.2) X10*3/uL Abs Immat Gran (auto) 0.07 H (0.00-0.03) X10*3/uL Absolute Neuts (auto) 9.1 H (2.0-8.3) x10*3/uL Absolute Nucleated RBC 0.020 H (0.0-0.012) X10*3/uL Nucleated RBC % (auto) 0.1 (0.0-0.2) /100WBC Sodium 144 (135-145) mmol/L Potassium 3.2 L (3.3-5.1) mmol/L Chloride 101 (96-108) mmol/L Carbon Dioxide 26 (22-29) mmol/L Anion Gap 20 (12-20) BUN 11 (9-16) mg/dL Creatinine 1.21 (0.5-1.4) mg/dL Estim Creat Clear Calc 74.9 Estimated GFR > 60 POC Glucose 173 H (60-115) mg/dL Random Glucose 166 H (60-115) mg/dL Calcium 10.8 H D (8.4-10.2) mg/dL Magnesium 1.9 (1.6-2.6) mg/dL Total Creatine Kinase 487 H (38-174) U/L Troponin I High Sens (<3.5-35.0) ng/L Urine Color Urine Appearance Urine pH (5.0-9.0) Ur Specific [employer] [place] (1.005-1.025) Urine Protein (Neg-Trace) mg/dL Urine Glucose (UA) (Negative) mg/dL Urine Ketones (Negative) mg/dL Urine Blood (Negative) Urine Nitrite (Negative) Ur Leukocyte Esterase (Negative) Urine RBC (0-2) /HPF Urine WBC (0-5) /HPF Ur Squamous Epith Cells (0-2) /HPF Urine Bacteria (None Seen) Hyaline Casts (0-2) /LPF Urine Opiates Screen (Not Detect) Urine Fentanyl Screen (Not Detect) Ur Barbiturates Screen (Not Detect) Ur Phencyclidine Scrn (Not Detect) Ur Amphetamines Screen (Not Detect) U Benzodiazepines Scrn (Not Detect) Urine Cocaine Screen (Not Detect) U Marijuana (THC) Screen (Not Detect) 06/27/23 06/27/23 06/27/23 Range/Units 10:45 11:31 11:42 WBC (4.8-10.8) X10*3/uL RBC (4.60-5.80) X10*6/uL Hgb (14.0-18.0) g/dl Hct (42.0-52.0) % MCV (80.0-98.0) fL MCH (27.0-33.0) pg MCHC (31.0-36.0) g/dl RDW (11.0-16.0) % Plt Count (160-400) X10*3/uL MPV (9.4-12.4) fL Immature Gran % (Auto) (0.0-0.4) % Neut % (Auto) (45-73) % Lymph % (Auto) (20-40) % Scott % (Auto) (2-11) % Eos % (Auto) (0-4) % Baso % (Auto) (0-2) % Lymph # (Auto) (1.2-4.9) X10*3/uL Scott # (Auto) (0.1-1.2) X10*3/uL Eos # (Auto) (0.0-0.4) X10*3/uL Baso # (Auto) (0.0-0.2) X10*3/uL Abs Immat Gran (auto) (0.00-0.03) X10*3/uL Absolute Neuts (auto) (2.0-8.3) x10*3/uL Absolute Nucleated RBC (0.0-0.012) X10*3/uL Nucleated RBC % (auto) (0.0-0.2) /100WBC Sodium (135-145) mmol/L Potassium (3.3-5.1) mmol/L Chloride (96-108) mmol/L Carbon Dioxide (22-29) mmol/L Anion Gap (12-20) BUN (9-16) mg/dL Creatinine (0.5-1.4) mg/dL Estim Creat Clear Calc Estimated GFR POC Glucose 271 H (60-115) mg/dL Random Glucose (60-115) mg/dL Calcium (8.4-10.2) mg/dL Magnesium (1.6-2.6) mg/dL Total Creatine Kinase (38-174) U/L Troponin I High Sens 47.6 H (<3.5-35.0) ng/L Urine Color Yellow Urine Appearance Clear Urine pH 6.5 (5.0-9.0) Ur Specific [employer] [place] 1.025 (1.005-1.025) Urine Protein 300 (3+) H (Neg-Trace) mg/dL Urine Glucose (UA) >=1000 H (Negative) mg/dL Urine Ketones Negative (Negative) mg/dL Urine Blood Small (1+) H (Negative) Urine Nitrite Negative (Negative) Ur Leukocyte Esterase Negative (Negative) Urine RBC 3-5 H (0-2) /HPF Urine WBC 6-10 H (0-5) /HPF Ur Squamous Epith Cells 0-2 (0-2) /HPF Urine Bacteria 1+ (None Seen) Hyaline Casts 3-5 (0-2) /LPF Urine Opiates Screen (Not Detect) Urine Fentanyl Screen (Not Detect) Ur Barbiturates Screen (Not Detect) Ur Phencyclidine Scrn (Not Detect) Ur Amphetamines Screen (Not Detect) U Benzodiazepines Scrn (Not Detect) Urine Cocaine Screen (Not Detect) U Marijuana (THC) Screen (Not Detect) 11/03/22 Range/Units 11:42 WBC (4.8-10.8) X10*3/uL RBC (4.60-5.80) X10*6/uL Hgb (14.0-18.0) g/dl Hct (42.0-52.0) % MCV (80.0-98.0) fL MCH (27.0-33.0) pg MCHC (31.0-36.0) g/dl RDW (11.0-16.0) % Plt Count (160-400) X10*3/uL MPV (9.4-12.4) fL Immature Gran % (Auto) (0.0-0.4) % Neut % (Auto) (45-73) % Lymph % (Auto) (20-40) % Scott % (Auto) (2-11) % Eos % (Auto) (0-4) % Baso % (Auto) (0-2) % Lymph # (Auto) (1.2-4.9) X10*3/uL Scott # (Auto) (0.1-1.2) X10*3/uL Eos # (Auto) (0.0-0.4) X10*3/uL Baso # (Auto) (0.0-0.2) X10*3/uL Abs Immat Gran (auto) (0.00-0.03) X10*3/uL Absolute Neuts (auto) (2.0-8.3) x10*3/uL Absolute Nucleated RBC (0.0-0.012) X10*3/uL Nucleated RBC % (auto) (0.0-0.2) /100WBC Sodium (135-145) mmol/L Potassium (3.3-5.1) mmol/L Chloride (96-108) mmol/L Carbon Dioxide (22-29) mmol/L Anion Gap (12-20) BUN (9-16) mg/dL Creatinine (0.5-1.4) mg/dL Estim Creat Clear Calc Estimated GFR POC Glucose (60-115) mg/dL Random Glucose (60-115) mg/dL Calcium (8.4-10.2) mg/dL Magnesium (1.6-2.6) mg/dL Total Creatine Kinase (38-174) U/L Troponin I High Sens (<3.5-35.0) ng/L Urine Color Urine Appearance Urine pH (5.0-9.0) Ur Specific [employer] (1.005-1.025) Urine Protein (Neg-Trace) mg/dL Urine Glucose (UA) (Negative) mg/dL Urine Ketones (Negative) mg/dL Urine Blood (Negative) Urine Nitrite (Negative) Ur Leukocyte Esterase (Negative) Urine RBC (0-2) /HPF Urine WBC (0-5) /HPF Ur Squamous Epith Cells (0-2) /HPF Urine Bacteria (None Seen) Hyaline Casts (0-2) /LPF Urine Opiates Screen Not Detected (Not Detect) Urine Fentanyl Screen POSITIVE H (Not Detect) Ur Barbiturates Screen Not Detected (Not Detect) Ur Phencyclidine Scrn Not Detected (Not Detect) Ur Amphetamines Screen Not Detected (Not Detect) U Benzodiazepines Scrn Not Detected (Not Detect) Urine Cocaine Screen POSITIVE H (Not Detect) U Marijuana (THC) Screen POSITIVE H (Not Detect) Independent Interpretation I performed an independent interpretation of an: EKG (initially vfib, ekg #2 sinus with flipped Ts in I and AVL with rate of 90) and Plain X-Ray (CXR: no chf, cardiomegaly) Tests considered The following testing was considered but not selected: Head CT considered but patient's seizure activity secondary to vfib. Chronic Conditions Patient?s care impacted by: Other (polysubstance abuse, cardiomyopathy) Social Determinants Patient?s care significantly limited by Social Determinants of Health including: Alcoholism and drug addiction in family Discharge Plan Discharge Clinical Impression: Cardiac arrest, Torsades de pointes Patient Disposition: Critical Access Hospital Hospital Transfer Details: [facility] 3 ROOM 24 Prescriptions: No Action glyburide 5 mg Tablet 5 mg PO DAILY lisinopril 20 mg Tablet 20 mg PO DAILY amitriptyline 50 mg Tablet 50 mg PO DAILY furosemide 20 mg Tablet 20 mg PO DAILY ertugliflozin 15 mg Tablet 15 mg PO QAM atorvastatin 40 mg Tablet 40 mg PO BEDTIME Qty: 30 0RF Lantus U-100 Insulin 100 unit/mL Solution 20 unit subcut DAILY Qty: 10 0RF lidocaine [Lidocaine Pain Relief] 4 % Adhesive Patch,Medicated 1 patch transdermal DAILY Qty: 30 0RF Protocol: Apply to: Apply to: sternum aspirin 81 mg Tablet,Chewable 81 mg PO DAILY Qty: 30 0RF nicotine (polacrilex) 2 mg gum 2 mg buccal Q1H PRN (Reason: nicotine cravings) Qty: 100 0RF buprenorphine-naloxone [Suboxone] 8-2 mg film 1 film sublingual DAILY Qty: 28 0RF chlorthalidone 25 mg tablet 25 mg PO DAILY Trulicity 4.5 mg/0.5 mL pen injector subcut QWEEK tamsulosin 0.4 mg capsule 0.4 mg PO DAILY metformin 1,000 mg tablet 1,000 mg PO Jardiance 10 mg tablet 10 mg PO QAM Print Language: Vincentian
--- NOTE | 2022-11-03 11:08 | ECG_ITS ---
Test Reason : vfibx2 cardioversion Blood Pressure : / mmHG Vent. Rate : 071 BPM Atrial Rate : 071 BPM P-R Int : 152 ms QRS Dur : 126 ms QT Int : 436 ms P-R-T Axes : 058 -23 187 degrees QTc Int : 473 ms Sinus rhythm with occasional Premature ventricular complexes with ventricular escape complexes Left ventricular hypertrophy with QRS widening ( R in aVL , [place] product ) Nonspecific T wave abnormality Abnormal ECG When compared with ECG of 03-NOV-2022 10:45, I and aVL subtle ST elevation not present anymore. PVCs present Referred By: Rodolfo Ott Electronically Signed By:Janes Rice
--- NOTE | 2022-11-03 11:09 | PM.CNCAR ---
History of Present Illness History of Present Illness Date of Service: 11/03/22 Requesting physician: Rodolfo Ott Chief complaint: Vfib Narrative: [age] year. Shins who was previously seeing Dr. Shankar as of 1 year ago presenting with fall at home and ventricular fibrillation in the emergency department. Patient is post cardiac arrest right now and history is somewhat limited. As he just said that he fell at home. He has seen as before for sharp chest pains previously and and also had severe cardiomyopathy in the setting of cocaine abuse. He was said to have cardiac catheterization last year but it appears he did not get it done. As per previous notes he was taking his medications regularly. He is saying he used cocaine 6 days ago and also another drug 2 days ago which was difficult to understand despite using project management intern. He is complaining of some chest discomfort currently but also is quite sleepy. EKG reviewed and he clearly had R on T followed by ventricular fibrillation. Difficult to say whether he initially was in torsades and then degenerated into VFib but clearly was in ventricular fibrillation and received 2 shocks and was started on amiodarone after that. On amiodarone he has been stable. He has not seen as over the last year. Post ROSC EKG initially had subtle ST changes in the lateral leads 1 aVL but they recovered. He previously had inferior and lateral T-wave inversions which are still present. His initial blood workup was reviewed. [facility] Past Medical History Medical History Chest pain Diabetes Essential hypertension History of CVA (cerebrovascular accident) HTN (hypertension) Morbid obesity Type 2 diabetes mellitus with unspecified complications Unstable angina Family History Family History Other CAD (coronary artery disease) Diabetes HTN (hypertension) Surgical History Surgical History No pertinent past surgical history Social History Social History Household Members: None Housing: Homeless Do you presently have visiting nurse or other home services: No Patient Tobacco Use Status: Current everyday Tobacco user Tobacco use type: Cigarette Smoked in Last 30 Days: Yes Use of substances other than those prescribed or required for medical reasons: Yes Substance Use Type: Crack/Cocaine Advance Directives: No service: No Current occupational status: unemployed Meds Allergies Allergy/AdvReac Type Severity Reaction Status Date / Time Penicillins [PCN] Allergy Intermediate HIVES Verified 12/10/21 13:37 Active Medications: Current Medications Magnesium Sulfate (Magnesium Sulfate/H2o) 2 gm in 50 mls @ 25 mls/hr IV ONCE ONE Stop: 11/03/22 12:52 Amiodarone HCl 900 mg/ Sodium (Chloride) 518 mls @ 34.533 mls/hr IVCONT .Q15H1M JAMIE; Protocol Amiodarone HCl 150 mg/ (Dextrose) 103 mls @ 618 mls/hr IV ONCE ONE Stop: 11/03/22 11:16 Home Medications Medication Instructions Recorded Confirmed Last Taken Type amitriptyline 50 mg tablet 50 mg PO DAILY 02/09/21 04/02/21 02/08/21 History ertugliflozin 15 mg tablet 15 mg PO QAM 02/09/21 04/02/21 02/08/21 History furosemide 20 mg tablet 20 mg PO DAILY 02/09/21 10/13/21 02/08/21 History glyburide 5 mg tablet 5 mg PO DAILY 02/09/21 04/02/21 02/08/21 History lisinopril 20 mg tablet 20 mg PO DAILY 02/09/21 10/13/21 02/08/21 History chlorthalidone 25 mg tablet 25 mg PO DAILY 10/13/21 10/13/21 Unknown History dulaglutide 4.5 mg/0.5 mL mg subcut QWEEK 10/13/21 10/13/21 Unknown History subcutaneous pen injector (Trulicity) empagliflozin 10 mg tablet 10 mg PO QAM diabetes mellitus 10/13/21 10/13/21 Unknown History (Jardiance) metformin 1,000 mg tablet 1,000 mg PO 10/13/21 10/13/21 Unknown History tamsulosin 0.4 mg capsule 0.4 mg PO DAILY 10/13/21 10/13/21 Unknown History Physical Exam Vital Signs: Vital Signs: Last Vital Signs Temp 99.2 F 11/03/22 10:09 Pulse 56 11/03/22 10:09 Resp 16 11/03/22 10:09 BP 172/73 H 11/03/22 10:09 Pulse Ox 98 11/03/22 10:09 O2 Del Method Room Air 11/03/22 10:09 BMI result Body Mass Index 38.3 GENERAL APPEARANCE: in no acute distress. SKIN: no suspicious lesions, warm and dry. HEART: no murmurs, regular rate and rhythm. LUNGS: clear to auscultation bilaterally. ABDOMEN: soft, nontender. EXTREMITIES: no edema. PERIPHERAL PULSES: equal. NEUROLOGIC: No gross deficits, AAO X 3. Sleepy but arousable. Objective Labs and Meds 11/03/22 10:45 11/03/22 10:45 Lab results: Laboratory Results - last 24 hr 11/03/22 10:37 POC Glucose 173 H Assessment and Plan (1) Ventricular fibrillation: Status: Acute (2) Cardiomyopathy: Status: Acute Plan 57 gentleman with background of cardiomyopathy in the setting of cocaine abuse who is presenting with fall at home. In the emergency department he had cardiac arrest with ventricular fibrillation. He was resuscitated and received 2 shocks followed by amiodarone and was subsequently in sinus rhythm. He was not intubated. He is not in shock clinically. He is complaining of some chest pain but also is very sleepy and his history is quite vague. He was seen previously for atypical chest pains and there was a plan to do cardiac catheterization on him in October 2021 but it appears he did not follow-up. His potassium is low and should be repleted. He already received some magnesium. He is on amiodarone drip which I think we should continue. I have discussed the case at [facility] cardiac care unit and he will be transferred there. I think he will need a cardiac catheterization. I think use chlorthalidone should be discontinued. He is taking lisinopril and empagliflozin which should be continued as before. Thank you for allowing me to participate in the care of your patient. Please feel free to contact me if you have any questions. Time Spent With Patient Time: Total time managing care of this patient today ____ minutes. Procedures Date of Service Date of Service: 11/03/22
[2022-11-03 11:14] LABS: MANUAL DIFF FLAG NO
[2022-11-03 11:18] VITALS: BP 158/73; PULSE 68; RESP 14; O2SAT 97
--- NOTE | 2022-11-03 11:20 | PC.NURSE ---
cardiology at bedside speaking to pt, pt able answering questions appropriately
[2022-11-03] MEDS: Amiodarone HCL 900 MG in 0.9 % Sodium Chloride 500 ML 34.53 MG IVCONT (11:24)
[2022-11-03 11:28] LABS: Basophils Percent Auto 0.1 % (0-2); Eosinophils Percent Auto 0.1 % (0-4); Hematocrit 53.6 % (42.0-52.0); Hemoglobin 17.6 g/dl (14.0-18.0); Imm Gran Abs Auto 0.07 X10*3/uL (0.00-0.03); Imm Gran Pct Auto 0.5 % (0.0-0.4); Lymphocytes Absolute Auto 4.1 X10*3/uL (1.2-4.9); Lymphocytes Percent Auto 29.1 % (20-40); Mean Corpuscular HGB Conc 32.8 g/dl (31.0-36.0); Mean Corpuscular Hemoglobin 28.8 pg (27.0-33.0); Mean Corpuscular Volume 87.6 fL (80.0-98.0); Mean Platelet Volume 11.4 fL (9.4-12.4); Monocytes Absolute Auto 0.8 X10*3/uL (0.1-1.2); Monocytes Percent Auto 5.5 % (2-11); NRBC Pct Auto 0.1 /100WBC (0.0-0.2); Neutrophils Absolute Auto 9.1 x10*3/uL (2.0-8.3); Neutrophils Percent Auto 64.7 % (45-73); Platelet Count 260 X10*3/uL (160-400); Red Blood Count 6.12 X10*6/uL (4.60-5.80); Red Cell Distribution Width 13.3 % (11.0-16.0)
[2022-11-03 11:29] VITALS: BP 150/72; PULSE 65; RESP 16; O2SAT 96
[2022-11-03 11:29] LABS: White Blood Count 14.1 X10*3/uL (4.8-10.8)
--- NOTE | 2022-11-03 11:31 | PC.NURSE ---
pt came in from EMS after a visiting nurse found him on the floor bedside this morning. With branch administrator, pt told us that he fell out of bed sometime last night while attempting to get to his wheelchair to go to the bathroom. Pt wheelchair at baseline. After falling pt could not get up and spent the night on the floor. Pt had been incontinent and was covered in stool. Albin and this RN cleaned pt. During assessment with PA vitals were taken, and pt placed on monitor. POC was taken by albin in 170s. During initial eval, pt was slightly miller HR 50s. Pt reported right sided leg and arm pain, and finger tingling. After a few minutes, PA was continuing assessment, and air sampling and monitoring indicated HR in 250s, this RN and PA attempted to arouse pt who having a seizure. pacer pads where applied, code card was retrieved, ER provider and staff were called, and compressions began when pulse was not initially detected. Please see code documentation.
[2022-11-03 11:32] LABS: Anion Gap 20 (12-20); Blood Urea Nitrogen 11 mg/dL (9-16); Calcium 10.8 mg/dL (8.4-10.2); Carbon Dioxide 26 mmol/L (22-29); Chloride 101 mmol/L (96-108); Creatinine Clr Calc Pharmacy 74.9; Estimated Glomerular Filt Rate > 60; Glucose Random 166 mg/dL (60-115); Magnesium 1.9 mg/dL (1.6-2.6); Potassium 3.2 mmol/L (3.3-5.1); Sodium 144 mmol/L (135-145)
[2022-11-03 11:35] LABS: Glucose, Whole Blood 271 mg/dL (60-115)
[2022-11-03 11:36] LABS: Troponin-I High Sensitivity 47.6 ng/L (<3.5-35.0)
[2022-11-03 11:52] LABS: Appearance Urine Clear; Color Urine Yellow; Glucose Urine UA >=1000 mg/dL (Negative); Leukocyte Esterase Urine Negative (Negative); Nitrite Urine Negative (Negative); PH 6.5 (5.0-9.0); Specific Gravity - Urine 1.025 (1.005-1.025); UMIC TRIGGER UACC YES; Urine Blood Small (1+) (Negative); Urine Ketones Negative (Negative); Urine Protein 300 (3+) mg/dL (Neg-Trace)
[2022-11-03] MEDS: Potassium Chloride/H20 10 MEQ/100 ML PIGGYBACK 100 MEQ IV (11:52)
--- NOTE | 2022-11-03 11:55 | PC.NURSE ---
pt having a really hard time tolerating the potassium infusion do to burning, pump reset twice, once over an hour and half still unable to tolerate, pump slowed down even more to 2 hours, aware
[2022-11-03 12:00] LABS: Amphetamine Screen Urine Not Detected (Not Detect); Barbiturates, Urine Not Detected (Not Detect); Benzodiazepines Screen Urine Not Detected (Not Detect); Cannabinoid Screen Urine POSITIVE (Not Detect); Cocaine Screen Urine POSITIVE (Not Detect); Fentanyl, urine POSITIVE (Not Detect); Opiate Screen Urine Not Detected (Not Detect); Phencyclidine Screen Urine Not Detected (Not Detect)
[2022-11-03 12:03] VITALS: BP 149/64; PULSE 60; RESP 16; O2SAT 98
[2022-11-03 12:04] LABS: Bacteria Urine 1+ (None Seen); Squamous Epithelial Cell Urine 0-2 /HPF (0-2); UACC Culture Trigger YES
--- NOTE | 2022-11-03 12:14 | PC.NURSE ---
report given to dominique baig at [facility]
[2022-11-03 12:15] LABS: COVID-19 Test Negative (Negative); IDNOW Serial# 9DB6401D
[2022-11-03 12:17] VITALS: BP 147/70; PULSE 56; RESP 14
--- NOTE | 2022-11-03 12:27 | MHC.EDTECH ---
[facility] CALLED WITH ROOM ASSIGNMENT AT 11:51. SPOKE TO ZOILA. PT GOING TO [place] [id number] ROOM 24. NURSE TO NURSE REPORT NUMBER IS [phone].
== END 2022-11-03 12:34 | disposition short-term general hospital (02) ==
PROVIDERS: Emergency Provider Emergency Medicine
DX: I46.9 Cardiac arrest, cause unspecified (principal); I49.01 Ventricular fibrillation; I42.9 Cardiomyopathy, unspecified; Z20.822 Contact with and (suspected) exposure to COVID-19; Z20.828 Contact with and (suspected) exposure to other viral communicable diseases; Z79.899 Other long term (current) drug therapy
CPT/HCPCS: 36415; 71045; 80048; 80307; 81001; 82550; 82947; 83735; 84484; 85025; 87086; 87088; 87186; 87635; 93005; 96365; 96375; 99285; J0282; J3475

== ENCOUNTER 2022-12-22 10:17 | Outpatient (REF) | payer MEDICAID, SELFPAY ==
[2022-12-22 11:13] LABS: MANUAL DIFF FLAG NO
[2022-12-22 11:30] LABS: Basophils Percent Auto 0.2 % (0-2); Eosinophils Absolute Auto 0.1 X10*3/uL (0.0-0.4); Eosinophils Percent Auto 1.2 % (0-4); Hematocrit 41.9 % (42.0-52.0); Hemoglobin 13.7 g/dl (14.0-18.0); Imm Gran Abs Auto 0.03 X10*3/uL (0.00-0.03); Imm Gran Pct Auto 0.3 % (0.0-0.4); Lymphocytes Absolute Auto 3.8 X10*3/uL (1.2-4.9); Lymphocytes Percent Auto 41.7 % (20-40); Mean Corpuscular HGB Conc 32.7 g/dl (31.0-36.0); Mean Corpuscular Hemoglobin 29.3 pg (27.0-33.0); Mean Corpuscular Volume 89.5 fL (80.0-98.0); Mean Platelet Volume 10.3 fL (9.4-12.4); Monocytes Absolute Auto 0.7 X10*3/uL (0.1-1.2); Monocytes Percent Auto 7.6 % (2-11); Neutrophils Absolute Auto 4.4 x10*3/uL (2.0-8.3); Platelet Count 240 X10*3/uL (160-400); Red Blood Count 4.68 X10*6/uL (4.60-5.80); Red Cell Distribution Width 13.6 % (11.0-16.0); White Blood Count 9.1 X10*3/uL (4.8-10.8)
[2022-12-22 12:05] LABS: Alanine Aminotransferase 17 U/L (0-40); Albumin Level 3.9 g/dL (3.5-5.0); Alkaline Phosphatase 120 U/L (39-117); Anion Gap 13 (12-20); Aspartate Amino Transferase 18 U/L (5-37); Bilirubin Total 0.8 mg/dL (0.0-1.0); Blood Urea Nitrogen 20 mg/dL (9-16); Calcium 9.7 mg/dL (8.4-10.2); Carbon Dioxide 25 mmol/L (22-29); Chloride 103 mmol/L (96-108); Estimated Glomerular Filt Rate > 60; Glucose Random 133 mg/dL (60-115); Potassium 3.9 mmol/L (3.3-5.1); Sodium 137 mmol/L (135-145); Total Protein 7.3 g/dL (6.5-8.0)
[2022-12-22 12:12] LABS: Cholesterol 150 mg/dL; HDL Cholesterol 44 mg/dL; LDL Cholesterol Calculated 79 mg/dl; Triglycerides 139 mg/dL
[2022-12-22 12:20] LABS: HBS Num1 1.28 mIU/mL (0-7.99); HBc Num1 6.95 S/CO (0.00-0.79); HBsAGNum1 0.36 S/CO (0.00-0.99); HIV AB/AG Nonreactive (Nonreactive); HIV Num 1 0.05 S/CO (0.00-0.99); Hepatitis A Antibody IgG REACTIVE (Nonreactive); Hepatitis B Surface Antigen Negative (Negative); ~Hepatitis A Antibody IgG 10.71 S/CO (0.00-0.99); ~Hepatitis B Surface Antibody NONREACTIVE (Nonreactive)
[2022-12-22 12:25] LABS: ~Hepatitis C Antibody Nonreactive (Nonreactive)
[2022-12-22 12:26] LABS: TSH reflex Free T4 1.64 uIU/mL (0.32-4.0)
[2022-12-22 12:40] LABS: Reflex LDLD? No
[2022-12-22 12:43] LABS: Folate 11.7 ng/mL (> or = 4.0); Vitamin B12 394 pg/mL (200-900)
[2022-12-22 13:42] LABS: HBc Num2 7.07 S/CO; HBc Num3 7.18 S/CO; Hepatitis B Core Antibody Reactive (Nonreactive)
[2022-12-22 14:40] LABS: Creatinine Urine 223.79 mg/dL; Microalbum/Creatinine Ratio Ur 56.7 ug/mg cr
[2022-12-24 01:33] LABS: Hepatitis B Core Antibody IgM NON-REACTIVE (NON-REACTIVE)
== END 2022-12-22 10:18 | disposition home or self-care (01) ==
LOC: HO.HHCL 10:17
PROVIDERS: Visit Provider Family Medicine
DX: Z11.4 Encounter for screening for human immunodeficiency virus [HIV] (principal); Z11.3 Encounter for screening for infections with a predominantly sexual mode of transmission; I11.0 Hypertensive heart disease with heart failure; I50.20 Unspecified systolic (congestive) heart failure; E11.65 Type 2 diabetes mellitus with hyperglycemia; E78.2 Mixed hyperlipidemia; Z79.4 Long term (current) use of insulin
CPT/HCPCS: 36415; 80053; 80061; 82043; 82607; 82746; 84443; 85025; 86704; 86705; 86706; 86708; 86803; 87340; 87389

== ENCOUNTER 2023-01-17 15:42 | Inpatient (IN) | payer MEDICAID, SELFPAY ==
[2023-01-17] VITALS (11 sets, daily range): BP systolic 129–188; BP diastolic 66–148; PULSE 80–113; RESP 22–41; TEMP 37–38.7; O2SAT 97–103; BMI 34.2
--- NOTE | ~2023-01-17 | CT_ITS ---
EXAMINATION: CT HEAD WITHOUT CONTRAST CLINICAL INFORMATION: Mental status change. Follow-up decreased attenuation left temporal fossa. COMPARISON: Previous head CT scans most recent from yesterday TECHNIQUE: Contiguous axial imaging was performed from the skull base to vertex without intravenous administration of contrast. This CT examination was performed using dose optimization techniques as appropriate, variously including the following: *Automated exposure control *Adjustment of mA and/or kV according to patient size (this includes techniques or standardized protocols for targeted exams where dose is matched to indication/reason for exam; i.e. extremities or head) *Use of iterative reconstruction technique DLP: 1133 mGy-cm FINDINGS: There is no evidence of an extra-axial collection. There is no evidence of intra-axial or extra-axial hemorrhage. The ventricles and extra-axial CSF spaces are appropriate. There is nonspecific periventricular white matter disease. There is question of old small right periventricular white matter infarct in the right frontal lobe versus white matter changes. This is similar to multiple prior exams. The questioned decreased attenuation in the left temporal lobe on yesterday's exam is no longer seen is probably artifactual. No mass, mass effect or acute infarct. No skull fracture. Mild soft tissue opacification of the right inferior mastoid air cells. This is similar to multiple old exams as well. Visualized paranasal sinuses, mastoid air cells and middle ears are clear.. CT/CT head/brain wo IV con IMPRESSION: No acute intracranial pathology. Previously questioned low-attenuation in the left temporal lobe longer seen and was probably artifactual.
--- NOTE | ~2023-01-17 | CT_ITS ---
EXAMINATION: CT CHEST, ABDOMEN AND PELVIS WITH CONTRAST CLINICAL INFORMATION: Shortness of breath. Elevated lipase. COMPARISON: None TECHNIQUE: Multidetector volumetric imaging was performed of the chest, abdomen and pelvis following administration of 85 mL Omnipaque 350 intravenous contrast. Oral contrast was administered. Sagittal and coronal reformatted images were obtained on the technologist's workstation. Image quality is technically degraded by motion artifact. This CT examination was performed using dose optimization techniques as appropriate, variously including the following: *Automated exposure control *Adjustment of mA and/or kV according to patient size (this includes techniques or standardized protocols for targeted exams where dose is matched to indication/reason for exam; i.e. extremities or head) *Use of iterative reconstruction technique DLP: 1889 mGy-cm FINDINGS: CHEST: CHEST WALL: No acute abnormality. MEDIASTINUM: Imaged thyroid gland is mildly heterogeneous. No bulky axillary, hilar or mediastinal lymphadenopathy. Great vessels are of normal caliber. Heart is enlarged. No pericardial effusion. CORONARY ARTERY CALCIFICATION: Mild. PLEURA: There is no pleural effusion. LUNGS: No suspicious pulmonary nodule. No focal consolidation. Central airways are patent. ABDOMEN AND PELVIS: ABDOMINAL AND PELVIC WALL: No acute abnormality. LIVER AND BILIARY TREE: The liver is normal in size and contour. No focal hepatic lesion. No biliary ductal dilatation. GALLBLADDER: Unremarkable. PANCREAS: Normal contour. No ductal dilatation. No peripancreatic stranding. SPLEEN: Not enlarged. ADRENAL GLANDS: No adrenal mass. KIDNEYS AND URETERS: The kidneys are symmetric in size and enhancement. There are bilateral hypodensities that are too small to characterize. 1.5 cm cyst in the lower pole of the right kidney. No further imaging follow-up needed. No hydronephrosis or perinephric stranding. GASTROINTESTINAL TRACT: Small and large bowel loops are of normal caliber. No small bowel obstruction. Appendix is within normal limits. VASCULAR: Normal caliber abdominal aorta. LYMPH NODES: No bulky abdominal or pelvic lymphadenopathy. FREE FLUID: No free fluid. BLADDER: Unremarkable. PELVIC VISCERA: Unremarkable. OSSEOUS STRUCTURES: No destructive bone lesions. CT/CT abdomen pelvis w IV con IMPRESSION: Technically difficult study. No acute abnormality in the chest, abdomen or pelvis.
--- NOTE | ~2023-01-17 | CT_ITS ---
EXAMINATION: CT HEAD WITHOUT CONTRAST CLINICAL INFORMATION: Altered mental status. COMPARISON: None available. TECHNIQUE: Contiguous axial imaging was performed from the skull base to vertex without intravenous administration of contrast. Technically difficult study. Patient combative and moving on the table. This CT examination was performed using dose optimization techniques as appropriate, variously including the following: *Automated exposure control *Adjustment of mA and/or kV according to patient size (this includes techniques or standardized protocols for targeted exams where dose is matched to indication/reason for exam; i.e. extremities or head) *Use of iterative reconstruction technique DLP: 1625 mGy-cm FINDINGS: Motion artifact technically degrades image quality. There is no evidence of acute intracranial hemorrhage or large volume territorial infarction. There is hypoattenuation of the left temporal lobe possibly related to beam hardening artifact an technical degradation of the images. Mild periventricular and subcortical white matter hypoattenuation most likely representing chronic small vessel ischemic disease. No mass effect or midline shift is seen. No extra-axial fluid collections are identified. No hydrocephalus. The osseous structures and soft tissues are unremarkable. The mastoid air cells and visualized portions of the paranasal sinuses are well aerated. CT/CT head/brain wo IV con IMPRESSION: Possible hypoattenuation of the left temporal lobe. This may be artifactual and related to beam hardening as well as technical degradation. Advise clinical correlation and possible repeat imaging may be indicated.
--- NOTE | 2023-01-17 16:20 | PC.NURSE ---
MD carrillo aware pt arrive tachycardic, reports chest pain (triaged cp)/back pain, tachypneic, fever rectal temp, restless. pt alert. not easily redirectable to follow directions and situationally disoriented/not able to provide lots of information. knows name/in hospital/year/.
--- NOTE | 2023-01-17 16:44 | ECG_ITS ---
Test Reason : CHEST PAIN Blood Pressure : / mmHG Vent. Rate : 101 BPM Atrial Rate : 101 BPM P-R Int : 136 ms QRS Dur : 116 ms QT Int : 356 ms P-R-T Axes : 060 -21 078 degrees QTc Int : 461 ms Sinus tachycardia Minimal voltage criteria for LVH, may be normal variant ( [place] product ) Nonspecific ST and T wave abnormality Abnormal ECG No previous ECGs available Referred By: Re Hi Electronically Signed By:KARO ONTIVEROS
--- NOTE | 2023-01-17 16:51 | ED_ITS ---
HPI - Altered Mental Status General Chief Complaint: Chest Pain Stated Complaint: CHEST PAIN Time Seen by Provider: 01/17/23 16:04 History of Present Illness HPI narrative: Normal patient is a 57-year-old male presents today with generalized malaise fever was urinating into a bucket was extremely confused had a fever noted by EMS sent in for further evaluation there was a question chest pain earlier which patient cannot elaborate on. Related Data Allergies Allergy/AdvReac Type Severity Reaction Status Date / Time No Known Allergies Allergy Verified 01/17/23 16:43 Review of Systems 2 Review of Systems: Unable to provide review systems secondary to patient's noncompliance [facility] Social History Social History Use of substances other than those prescribed or required for medical reasons: Unknown Advance Directives: No Advance Directives Information Provided: No Physical Exam ED Vital Signs: Vital Signs - 24 hr 01/17/23 16:04 01/17/23 16:07 01/17/23 16:20 Temperature 98.6 F 100.7 F H Pulse Rate 113 H 108 H Respiratory Rate 41 H 38 H Blood Pressure 188/148 H Pulse Oximetry 97 99 Oxygen Delivery Method Room Air Room Air 01/17/23 18:00 01/17/23 19:45 01/17/23 20:31 Temperature 101.7 F H 99.3 F Pulse Rate 103 H 90 97 Respiratory Rate 38 H 24 H Blood Pressure 152/66 H 163/72 H Pulse Oximetry 103 H Oxygen Delivery Method Room Air 01/17/23 23:52 Temperature Pulse Rate 100 Respiratory Rate 22 H Blood Pressure 153/72 H Pulse Oximetry 100 Oxygen Delivery Method Room Air BMI result Body Mass Index 34.2 Appearance: Agitated moving all extremity but no acute distress Eyes: Pupils equal, round and reactive to light. ENT: Pharynx normal. Neck: Normal inspection. Neck supple. No lymph nodes noted. No crepitus CVS: Normal heart rate and rhythm. Pulses normal. Normal S1 and S2 Respiratory: No respiratory distress. Breath sounds normal. No Wheezing. No rales Abdomen: Soft and nontender. No rigidity. No distention. good BS x4 Skin: Skin warm and dry. Normal skin color. Normal skin turgor. Extremities: No lower extremity edema. Neurovascular intact to all extremities. No Lacerations. No Rash Neuro: Agitated. No motor deficit. No sensory deficit. Moving all extermities. Medications Administered Generic Name Dose Route Start Last Admin Trade Name Freq PRN Reason Stop Dose Admin Lactated Ringer's 1,000 mls @ 150 mls/hr 01/18/23 00:15 01/18/23 01:20 Lr IVCONT 150 mls/hr .Q6H40M JAMIE Administration Piperacillin Sod/Tazobactam 50 mls @ 100 mls/hr 01/18/23 00:00 01/18/23 01:20 Sod 3.375 gm/ Sodium Chloride IV Infused Q6H JAMIE Infusion Vancomycin HCl 2,000 mg in 500 mls @ 250 mls/hr 01/18/23 00:30 01/18/23 00:49 Vancomycin/Ns IV 01/18/23 02:29 250 mls/hr ONCE ONE Administration Protocol Discontinued Medications Generic Name Dose Route Start Last Admin Trade Name Freq PRN Reason Stop Dose Admin Acetaminophen 650 mg 01/17/23 16:45 01/17/23 17:31 Acetaminophen Supp 650 Mg Supp.Rect MO 01/17/23 16:46 650 mg ONCE ONE Administration Sodium Chloride 1,000 mls @ 999 mls/hr 01/17/23 16:45 01/17/23 20:30 Ns IV 01/17/23 17:45 Infused .Q1H1M JAMIE Infusion Sodium Chloride 1,000 mls @ 999 mls/hr 01/17/23 17:00 01/17/23 20:30 Ns IV 01/17/23 18:00 Infused .Q1H1M JAMIE Infusion Sodium Chloride 1,000 mls @ 999 mls/hr 01/17/23 17:00 01/17/23 20:31 Ns IV 01/17/23 18:00 Infused .Q1H1M JAMIE Infusion Ceftriaxone Sodium 2 gm/ 50 mls @ 100 mls/hr 01/17/23 16:50 01/17/23 20:30 Sodium Chloride IV 01/17/23 17:19 Infused ONCE ONE Infusion Sodium Chloride 1,000 mls @ 999 mls/hr 01/17/23 18:15 01/17/23 21:41 Ns IV 01/17/23 19:15 Infused .Q1H1M JAMIE Infusion Sodium Chloride 500 mls @ 999 mls/hr 01/17/23 19:45 01/17/23 22:30 Ns IV 01/17/23 20:15 Infused .Q31M JAMIE Infusion Iohexol 100 ml 01/17/23 19:43 01/17/23 19:43 Iohexol 350 Mg/Ml 100 Ml Infus..Btl IV 01/17/23 19:44 85 ml ONCE ONE Administration Medical Decision Making Medical Decision Making [facility] Narrative: Patient 57 years old presents today with having restless cyst fever generalized malaise. Patient unable to give detailed history. There was a question of chest pain earlier. Patient had a fever. Patient was altered naked peeing in a bucket. He is oriented to self. He knows he is at [facility]. Patient moves all his extremities. He has no inpatient record at [facility]. He had a fever, tachycardia. Cultures obtained. Lactate was elevated at 3.4. 30 cc/kilos IV fluid was started. Patient given IV antibiotics. Urine was obtained. There is no gross urinary tract infection noted. Patient's U tox was positive for fentanyl and cocaine. Which probably contributed to part of the change in mental status. Patient's alcohol is also less than 10 there is no evidence of alcohol being a part of this. Patient's flu RSV COVID all negative. CT scan of the head was done. There was no evidence of bleeding. CT scan of the chest abdomen pelvis was done showed no acute evidence of pneumonia, diverticulitis, abscess, perforation. Patient to be admitted for further evaluation. Focal re-examination for sepsis was done at approximately 21:00. Patient's symptoms seems to be improving. Hospitalist was consulted. Patient to be admitted. Patient's repeat lactate was 1.8 after IV Differential Diagnosis Differential Diagnoses: The differential diagnosis associated with the presentation includes Pneumonia, pneumothorax, intracranial bleed, fracture, traumatic injury, abscess, coronary artery disease, polysubstance abuse, Admission/Observation Consideration of admission/observation: Escalation of care including admission/observation considered Patient to be admitted Consult Healthcare Provider Management of the patient was discussed with: Hospitalist Lab Data [facility] Lab Attestation statement: I reviewed the patient's lab results. 01/17/23 17:02 01/17/23 17:02 Labs: Lab Results 01/17/23 01/17/23 01/17/23 Range/Units 16:33 17:02 17:24 WBC 10.1 (4.8-10.8) X10*3/uL RBC 4.08 L (4.60-5.80) X10*6/uL Hgb 12.2 L (14.0-18.0) g/dl Hct 37.1 L (42.0-52.0) % MCV 90.9 (80.0-98.0) fL MCH 29.9 (27.0-33.0) pg MCHC 32.9 (31.0-36.0) g/dl RDW 14.2 (11.0-16.0) % Plt Count 229 (160-400) X10*3/uL MPV 10.7 (9.4-12.4) fL Immature Gran % (Auto) 0.8 H (0.0-0.4) % Neut % (Auto) 69.6 (45-73) % Lymph % (Auto) 21.0 (20-40) % [place] % (Auto) 6.7 (2-11) % Eos % (Auto) 1.7 (0-4) % Baso % (Auto) 0.2 (0-2) % Lymph # (Auto) 2.1 (1.2-4.9) X10*3/uL [place] # (Auto) 0.7 (0.1-1.2) X10*3/uL Eos # (Auto) 0.2 (0.0-0.4) X10*3/uL Baso # (Auto) 0.0 (0.0-0.2) X10*3/uL Abs Immat Gran (auto) 0.08 H (0.00-0.03) X10*3/uL Absolute Neuts (auto) 7.0 (2.0-8.3) x10*3/uL Absolute Nucleated RBC 0.000 (0.0-0.012) X10*3/uL Nucleated RBC % (auto) 0.0 (0.0-0.2) /100WBC O2 Saturation % ABG pH at Pt Temp (7.35-7.45) ABG pCO2 at Pt Temp (32-45) mmHg ABG pO2 at Pt Temp (83-108) mmHg ABG HCO3 (22-26) mmol/L ABG Base Excess (Actual) mmol/L VBG pH (7.32-7.43) VBG pCO2 mmHg VBG pO2 mmHg VBG HCO3 (22-26) mmol/L VBG O2 Saturation % VBG Base Excess mmol/L Sodium 143 (135-145) mmol/L Potassium 3.7 (3.3-5.1) mmol/L Chloride 108 (96-108) mmol/L Carbon Dioxide 26 (22-29) mmol/L Anion Gap 13 (12-20) BUN 16 (9-16) mg/dL Creatinine 0.91 (0.5-1.4) mg/dL Estim Creat Clear Calc 113.6 Estimated GFR > 60 POC Glucose 168 H (60-115) mg/dL Random Glucose 130 H (60-115) mg/dL Lactic Acid 3.4 H* (0.5-2.0) mmol/L Lactic Acid F/U @ 2Hr (0.5-2.0) mmol/L Calcium 10.0 (8.4-10.2) mg/dL Total Bilirubin 0.4 (0.0-1.0) mg/dL Direct Bilirubin 0.2 (0.0-0.5) mg/dL AST 97 H (5-37) U/L ALT 60 H (0-40) U/L Alkaline Phosphatase 195 H (39-117) U/L Ammonia 40 (13-55) umol/L Troponin I High Sens 41.5 H (<3.5-35.0) ng/L Total Protein 7.1 (6.5-8.0) g/dL Albumin 3.6 (3.5-5.0) g/dL Lipase 297 H (8-78) U/L Urine Color Urine Appearance Urine pH (5.0-9.0) Ur Specific [place] (1.005-1.025) Urine Protein (Neg-Trace) mg/dL Urine Glucose (UA) (Negative) mg/dL Urine Ketones (Negative) mg/dL Urine Blood (Negative) Urine Nitrite (Negative) Ur Leukocyte Esterase (Negative) Urine RBC (0-2) /HPF Urine WBC (0-5) /HPF Ur Squamous Epith Cells (0-2) /HPF Urine Bacteria (None Seen) Hyaline Casts (0-2) /LPF Urine Opiates Screen (Not Detect) Urine Fentanyl Screen (Not Detect) Ur Barbiturates Screen (Not Detect) Ur Phencyclidine Scrn (Not Detect) Ur Amphetamines Screen (Not Detect) U Benzodiazepines Scrn (Not Detect) Urine Cocaine Screen (Not Detect) U Marijuana (THC) Screen (Not Detect) Ethyl Alcohol < 10 mg/dL Influenza Type A (PCR) NEGATIVE (Negative) Influenza Type B (PCR) NEGATIVE (Negative) RSV RNA Qual (PCR) NEGATIVE (Negative) SARS-CoV-2 RNA (RT-PCR) NEGATIVE (Negative) 01/17/23 01/17/23 01/17/23 Range/Units 18:24 19:40 21:53 WBC (4.8-10.8) X10*3/uL RBC (4.60-5.80) X10*6/uL Hgb (14.0-18.0) g/dl Hct (42.0-52.0) % MCV (80.0-98.0) fL MCH (27.0-33.0) pg MCHC (31.0-36.0) g/dl RDW (11.0-16.0) % Plt Count (160-400) X10*3/uL MPV (9.4-12.4) fL Immature Gran % (Auto) (0.0-0.4) % Neut % (Auto) (45-73) % Lymph % (Auto) (20-40) % Stan[place] % (Auto) (2-11) % Eos % (Auto) (0-4) % Baso % (Auto) (0-2) % Lymph # (Auto) (1.2-4.9) X10*3/uL [place] # (Auto) (0.1-1.2) X10*3/uL Eos # (Auto) (0.0-0.4) X10*3/uL Baso # (Auto) (0.0-0.2) X10*3/uL Abs Immat Gran (auto) (0.00-0.03) X10*3/uL Absolute Neuts (auto) (2.0-8.3) x10*3/uL Absolute Nucleated RBC (0.0-0.012) X10*3/uL Nucleated RBC % (auto) (0.0-0.2) /100WBC O2 Saturation % ABG pH at Pt Temp (7.35-7.45) ABG pCO2 at Pt Temp (32-45) mmHg ABG pO2 at Pt Temp (83-108) mmHg ABG HCO3 (22-26) mmol/L ABG Base Excess (Actual) mmol/L VBG pH 7.53 H (7.32-7.43) VBG pCO2 36 mmHg VBG pO2 178 mmHg VBG HCO3 30 H (22-26) mmol/L VBG O2 Saturation 100.0 % VBG Base Excess 7.5 mmol/L Sodium (135-145) mmol/L Potassium (3.3-5.1) mmol/L Chloride (96-108) mmol/L Carbon Dioxide (22-29) mmol/L Anion Gap (12-20) BUN (9-16) mg/dL Creatinine (0.5-1.4) mg/dL Estim Creat Clear Calc Estimated GFR POC Glucose (60-115) mg/dL Random Glucose (60-115) mg/dL Lactic Acid (0.5-2.0) mmol/L Lactic Acid F/U @ 2Hr 1.8 (0.5-2.0) mmol/L Calcium (8.4-10.2) mg/dL Total Bilirubin (0.0-1.0) mg/dL Direct Bilirubin (0.0-0.5) mg/dL AST (5-37) U/L ALT (0-40) U/L Alkaline Phosphatase (39-117) U/L Ammonia (13-55) umol/L Troponin I High Sens 64.1 H D (<3.5-35.0) ng/L Total Protein (6.5-8.0) g/dL Albumin (3.5-5.0) g/dL Lipase (8-78) U/L Urine Color Yellow Urine Appearance Clear Urine pH 7.5 (5.0-9.0) Ur Specific [place] 1.010 (1.005-1.025) Urine Protein Negative (Neg-Trace) mg/dL Urine Glucose (UA) Negative (Negative) mg/dL Urine Ketones Negative (Negative) mg/dL Urine Blood Small (1+) H (Negative) Urine Nitrite Negative (Negative) Ur Leukocyte Esterase Trace H (Negative) Urine RBC 0-2 (0-2) /HPF Urine WBC 0-5 (0-5) /HPF Ur Squamous Epith Cells 0-2 (0-2) /HPF Urine Bacteria Trace (None Seen) Hyaline Casts 0-2 (0-2) /LPF Urine Opiates Screen Not Detected (Not Detect) Urine Fentanyl Screen POSITIVE H (Not Detect) Ur Barbiturates Screen Not Detected (Not Detect) Ur Phencyclidine Scrn Not Detected (Not Detect) Ur Amphetamines Screen Not Detected (Not Detect) U Benzodiazepines Scrn Not Detected (Not Detect) Urine Cocaine Screen POSITIVE H (Not Detect) U Marijuana (THC) Screen Not Detected (Not Detect) Ethyl Alcohol mg/dL Influenza Type A (PCR) (Negative) Influenza Type B (PCR) (Negative) RSV RNA Qual (PCR) (Negative) SARS-CoV-2 RNA (RT-PCR) (Negative) 01/17/23 Range/Units 23:34 WBC (4.8-10.8) X10*3/uL RBC (4.60-5.80) X10*6/uL Hgb (14.0-18.0) g/dl Hct (42.0-52.0) % MCV (80.0-98.0) fL MCH (27.0-33.0) pg MCHC (31.0-36.0) g/dl RDW (11.0-16.0) % Plt Count (160-400) X10*3/uL MPV (9.4-12.4) fL Immature Gran % (Auto) (0.0-0.4) % Neut % (Auto) (45-73) % Lymph % (Auto) (20-40) % Stanly % (Auto) (2-11) % Eos % (Auto) (0-4) % Baso % (Auto) (0-2) % Lymph # (Auto) (1.2-4.9) X10*3/uL Stan[place] # (Auto) (0.1-1.2) X10*3/uL Eos # (Auto) (0.0-0.4) X10*3/uL Baso # (Auto) (0.0-0.2) X10*3/uL Abs Immat Gran (auto) (0.00-0.03) X10*3/uL Absolute Neuts (auto) (2.0-8.3) x10*3/uL Absolute Nucleated RBC (0.0-0.012) X10*3/uL Nucleated RBC % (auto) (0.0-0.2) /100WBC O2 Saturation 98.0 % ABG pH at Pt Temp 7.52 H (7.35-7.45) ABG pCO2 at Pt Temp 37 (32-45) mmHg ABG pO2 at Pt Temp 80 L (83-108) mmHg ABG HCO3 30 H (22-26) mmol/L ABG Base Excess (Actual) 7.8 mmol/L VBG pH (7.32-7.43) VBG pCO2 mmHg VBG pO2 mmHg VBG HCO3 (22-26) mmol/L VBG O2 Saturation % VBG Base Excess mmol/L Sodium (135-145) mmol/L Potassium (3.3-5.1) mmol/L Chloride (96-108) mmol/L Carbon Dioxide (22-29) mmol/L Anion Gap (12-20) BUN (9-16) mg/dL Creatinine (0.5-1.4) mg/dL Estim Creat Clear Calc Estimated GFR POC Glucose (60-115) mg/dL Random Glucose (60-115) mg/dL Lactic Acid (0.5-2.0) mmol/L Lactic Acid F/U @ 2Hr (0.5-2.0) mmol/L Calcium (8.4-10.2) mg/dL Total Bilirubin (0.0-1.0) mg/dL Direct Bilirubin (0.0-0.5) mg/dL AST (5-37) U/L ALT (0-40) U/L Alkaline Phosphatase (39-117) U/L Ammonia (13-55) umol/L Troponin I High Sens (<3.5-35.0) ng/L Total Protein (6.5-8.0) g/dL Albumin (3.5-5.0) g/dL Lipase (8-78) U/L Urine Color Urine Appearance Urine pH (5.0-9.0) Ur Specific [place] (1.005-1.025) Urine Protein (Neg-Trace) mg/dL Urine Glucose (UA) (Negative) mg/dL Urine Ketones (Negative) mg/dL Urine Blood (Negative) Urine Nitrite (Negative) Ur Leukocyte Esterase (Negative) Urine RBC (0-2) /HPF Urine WBC (0-5) /HPF Ur Squamous Epith Cells (0-2) /HPF Urine Bacteria (None Seen) Hyaline Casts (0-2) /LPF Urine Opiates Screen (Not Detect) Urine Fentanyl Screen (Not Detect) Ur Barbiturates Screen (Not Detect) Ur Phencyclidine Scrn (Not Detect) Ur Amphetamines Screen (Not Detect) U Benzodiazepines Scrn (Not Detect) Urine Cocaine Screen (Not Detect) U Marijuana (THC) Screen (Not Detect) Ethyl Alcohol mg/dL Influenza Type A (PCR) (Negative) Influenza Type B (PCR) (Negative) RSV RNA Qual (PCR) (Negative) SARS-CoV-2 RNA (RT-PCR) (Negative) Independent Interpretation I performed an independent interpretation of an: EKG and CT Scan Interpretation: My interpretation patient's CT scan of the head was grossly negative for any acute evidence of bleeding. My interpretation patient's EKG showed a sinus rhythm heart rate is 105 MO QRS QTC within normal limits no ST segment elevation Radiology Impression Discussion of test interpretation with radiology: I have reviewed the radiologist's reading. External Record Review External record reviewed: Inpatient record Critical Care Time Critical Care Time Critical Care Time: Yes Total Critical Care Time: 40 Attestation: I have personally provided 40 minutes of critical care time exclusive of time spent on separately billable procedures. Time includes review of lab data, radiology results, discussion with consultants, and monitoring for potential decompensation. Interventions were performed as documented above Discharge Plan Discharge Clinical Impression: Fever, Acute alteration in mental status, Substance abuse Patient Disposition: Admitted As Inpatient
--- NOTE | 2023-01-17 17:00 | PC.NURSE ---
pt changed incont of urine/stool. alert. tachypneic still. airway intact. +o2 sat.
[2023-01-17] MEDS: 0.9 % Sodium Chloride 1,000 ML 999 ML IV ×4 (17:09→20:29)
[2023-01-17] MEDS: cefTRIAXone sodium 2 GM in 0.9 % Sodium Chloride 50 ML IV (17:20)
--- NOTE | 2023-01-17 17:30 | PC.NURSE ---
attempted multiple times for pt to have xray/ct scan- pt too restless- md carrillo notified multiple times (by rn/radiology) and states to continue to attempt. pt not redirectable to stay still.
[2023-01-17] MEDS: Acetaminophen Supp 650 MG SUPP.RECT PR (17:31)
[2023-01-17 17:33] LABS: MANUAL DIFF FLAG NO
[2023-01-17 17:34] LABS: Basophils Percent Auto 0.2 % (0-2); Eosinophils Absolute Auto 0.2 X10*3/uL (0.0-0.4); Eosinophils Percent Auto 1.7 % (0-4); Hematocrit 37.1 % (42.0-52.0); Hemoglobin 12.2 g/dl (14.0-18.0); Imm Gran Abs Auto 0.08 X10*3/uL (0.00-0.03); Imm Gran Pct Auto 0.8 % (0.0-0.4); Lymphocytes Absolute Auto 2.1 X10*3/uL (1.2-4.9); Mean Corpuscular HGB Conc 32.9 g/dl (31.0-36.0); Mean Corpuscular Hemoglobin 29.9 pg (27.0-33.0); Mean Corpuscular Volume 90.9 fL (80.0-98.0); Mean Platelet Volume 10.7 fL (9.4-12.4); Monocytes Absolute Auto 0.7 X10*3/uL (0.1-1.2); Monocytes Percent Auto 6.7 % (2-11); Neutrophils Percent Auto 69.6 % (45-73); Platelet Count 229 X10*3/uL (160-400); Red Blood Count 4.08 X10*6/uL (4.60-5.80); Red Cell Distribution Width 14.2 % (11.0-16.0); White Blood Count 10.1 X10*3/uL (4.8-10.8)
[2023-01-17 17:41] LABS: Glucose, Whole Blood 168 mg/dL (60-115)
[2023-01-17 17:56] LABS: Ammonia 40 umol/L (13-55)
--- NOTE | 2023-01-17 18:00 | PC.NURSE ---
2 attempts for reid- md state ok no reid as pt voiding spontaneous clear yellow urine.
[2023-01-17 18:05] LABS: Alanine Aminotransferase 60 U/L (0-40); Albumin Level 3.6 g/dL (3.5-5.0); Alkaline Phosphatase 195 U/L (39-117); Anion Gap 13 (12-20); Aspartate Amino Transferase 97 U/L (5-37); Bilirubin Direct 0.2 mg/dL (0.0-0.5); Bilirubin Total 0.4 mg/dL (0.0-1.0); Blood Urea Nitrogen 16 mg/dL (9-16); Carbon Dioxide 26 mmol/L (22-29); Chloride 108 mmol/L (96-108); Creatinine Clr Calc Pharmacy 113.6; Estimated Glomerular Filt Rate > 60; Glucose Random 130 mg/dL (60-115); Lipase 297 U/L (8-78); Potassium 3.7 mmol/L (3.3-5.1); Sodium 143 mmol/L (135-145); Total Protein 7.1 g/dL (6.5-8.0)
[2023-01-17 18:11] LABS: Troponin-I High Sensitivity 41.5 ng/L (<3.5-35.0)
[2023-01-17 18:12] LABS: Influenza A PCR NEGATIVE (Negative); Influenza B PCR NEGATIVE (Negative); Resp Syncy Virus RNA Qual PCR NEGATIVE (Negative); SARS COV2 PCR INHOUSE NEGATIVE (Negative)
[2023-01-17 18:30] LABS: VBG Base Excess 7.5 mmol/L; VBG HCO3 30 mmol/L (22-26); VBG pCO2 36 mmHg; VBG pH 7.53 (7.32-7.43); VBG pO2 178 mmHg
[2023-01-17 18:32] LABS: Lactic Acid 3.4 mmol/L (0.5-2.0)
[2023-01-17 18:34] LABS: Ethanol < 10 mg/dL
[2023-01-17 18:37] LABS: Venous Blood Gas Refer to POC result
--- NOTE | 2023-01-17 18:45 | PC.NURSE ---
pt less restless at this time- attempting again to take to ct scan by rn/staff- md carrillo aware.
[2023-01-17] MEDS: iohexoL 350 MG/ML 100 ML INFUS..BTL IV (19:43)
[2023-01-17 19:56] LABS: Amphetamine Screen Urine Not Detected (Not Detect); Barbiturates, Urine Not Detected (Not Detect); Benzodiazepines Screen Urine Not Detected (Not Detect); Cannabinoid Screen Urine Not Detected (Not Detect); Cocaine Screen Urine POSITIVE (Not Detect); Fentanyl, urine POSITIVE (Not Detect); Opiate Screen Urine Not Detected (Not Detect); Phencyclidine Screen Urine Not Detected (Not Detect)
[2023-01-17 19:59] LABS: Appearance Urine Clear; Color Urine Yellow; Glucose Urine UA Negative (Negative); Leukocyte Esterase Urine Trace (Negative); Nitrite Urine Negative (Negative); PH 7.5 (5.0-9.0); UMIC TRIGGER UACC YES; Urine Blood Small (1+) (Negative); Urine Ketones Negative (Negative); Urine Protein Negative (Neg-Trace)
[2023-01-17 20:00] LABS: Reflex Lactate? Lactic Acid Added
--- NOTE | 2023-01-17 20:00 | PC.NURSE ---
respirs in low 20's now. +o2 on ra. reports decreased CP. breathing more normal/even. alert. +CMS. changed incontinent. new gown/sheets again
[2023-01-17 20:12] LABS: Bacteria Urine Trace (None Seen); Hyaline Casts Urine 0-2 /LPF (0-2); RBC Urine 0-2 /HPF (0-2); Squamous Epithelial Cell Urine 0-2 /HPF (0-2); WBC Urine 0-5 /HPF (0-5)
--- NOTE | 2023-01-17 20:15 | PC.NURSE ---
pt changed incontinent. +o2 on RA. attempted condom cath- pt pulled off
--- NOTE | 2023-01-17 21:30 | PC.NURSE ---
This telegraphic typewriter operator chief assumed care of this Pt at 2100. Pt laying in stretcher, lethargic, responds to tactile stimuli, A&Ox3, reports he has a fall two days ago. Pt incontinent of urine, but able to verbalize need to urinate. Incontinent care provided, [place] cath applied. Fluids running per MAR. Multiple small scabs/ open areas throughout body noted.
[2023-01-17] MEDS: 0.9 % Sodium Chloride 500 ML 999 ML IV (21:39)
[2023-01-17 22:08] LABS: ~Lactic Acid-LAB USE ONLY 1.8 mmol/L (0.5-2.0)
--- NOTE | 2023-01-17 22:25 | PC.NURSE ---
MD Esquivel at bedside, pt unresponsive with pinpoint pupils. Per Sierra verbal order for nasal narcan 4 mg to be administered now. Shortly after, pt CAOx4, speaking full and clear sentences, discussing plan of care with .
[2023-01-17 22:28] LABS: Troponin-I High Sensitivity 64.1 ng/L (<3.5-35.0)
[2023-01-17 23:38] LABS: ABG Refer to POC result
[2023-01-17 23:39] LABS: ABG Base Excess 7.8 mmol/L; ABG HCO3 30 mmol/L (22-26); ABG pCO2 37 mmHg (32-45); ABG pH 7.52 (7.35-7.45); ABG pO2 80 mmHg (83-108)
[2023-01-18] MEDS: Piperacillin Sodium/Tazobactam 3.375 GM in 0.9 % Sodium Chloride 50 ML IV ×4 (00:45→23:56)
[2023-01-18] MEDS: vancomycin/NS 2,000 MG/500 ML PLAST..BAG 250 MG IV (00:49)
[2023-01-18] MEDS: Lactated Ringers 1,000 ML 150 ML IVCONT ×3 (01:20→20:31)
[2023-01-18 02:31] VITALS: BP 154/66; PULSE 88; RESP 22; TEMP 37.8; O2SAT 100
[2023-01-18] MEDS: Acetaminophen 325 MG TABLET 650 MG PO ×2 (02:38→18:41)
[2023-01-18 03:38] VITALS: BP 135/78; PULSE 89; RESP 20; TEMP 37.7
--- NOTE | 2023-01-18 04:58 | PC.NURSE ---
Pt appears to be sleeping, awakens to let t/w know [place] cath pulled out of place, incontinent of urine. Pt cleaned and repositioned. Pt requesting food.
--- NOTE | 2023-01-18 05:47 | PC.NURSE ---
RN to RN report given to Tal. Pt will be transported to room 460.
--- NOTE | 2023-01-18 06:42 | P.HPHOSP_ITS ---
History of Present Illness Date of Service: 01/18/23 Chief Complaint: fever 57-year-old male with past medical history of IV drug use comes into the ED with complaints of fever at home. Patient is obtunded, arousable to painful stimuli wakes up of fall back asleep. Pinpoint pupils, given Narcan, slightly woke up and went back to sleep. His vitals are otherwise stable, no respiratory distress, no CO2 retention. According to the ED physician patient come in with complaints of fever, per nursing triage note patient was brought in via EMS with complaints of chest pain, the person that called EMS was concerned about his mentation, patient was found naked impeding a bucket, noted to have a history of [place] about 4 months ago, patient was also noted by EMS to be encephalopathic. patient his vitals in the ED were found to have a fever 100.7, heart rate of 108, respiratory rate of 38, satting 99% on room air. His lactic acid was found to be 3.4 improved after IVF, he has elevated AST of 97, ALT of 60, lipase of 297, WBC count of 10.1, pH of 7.52 with a CO2 of 37. Head CT showed possible hypoattenuation of the left temporal lobe, possibly artifact Abdomen pelvic as well as chest CT showed clinical difficult study but no abnormality in the chest abdomen or pelvic region are identified Patient started on IV antibiotics will be admitted for further management PMFSH Social History Patient Tobacco Use Status: Tobacco use Unknown Use of substances other than those prescribed or required for medical reasons: Unknown Advance Directives: No Advance Directives Information Provided: No Nutrition Risks: No Nutritional Risk Meds Allergies Allergy/AdvReac Type Severity Reaction Status Date / Time No Known Allergies Allergy Verified 01/17/23 16:43 Active Medications: Current Medications Acetaminophen (Acetaminophen 325 Mg Tablet) 650 mg PO Q6H PRN PRN Reason: Pain, Mild (Pain Scale 1-3) Last Admin: 01/18/23 02:38 Dose: 650 mg Docusate Sodium (Docusate Sodium 100 Mg Capsule) 100 mg PO DAILY PRN PRN Reason: Constipation Enoxaparin Sodium (Enoxaparin Sodium 40 Mg/0.4 Ml Syringe) 40 mg SUBCUT Q24H JAMIE Lactated Ringer's (Lr) 1,000 mls @ 150 mls/hr IVCONT .Q6H40M [facility] Last Admin: 01/18/23 01:20 Dose: 150 mls/hr Piperacillin Sod/Tazobactam (Sod 3.375 gm/ Sodium Chloride) 50 mls @ 100 mls/hr IV Q6H [facility] Last Infusion: 01/18/23 01:20 Dose: Infused Ondansetron HCl (Ondansetron Hcl 4 Mg/2 Ml Vial) 4 mg IVPUSH Q8H PRN PRN Reason: Nausea and Vomiting Pharmacy Consult (Consult Rx Vancomycin Dosing) 1 each MISCELLANE DAILY PRN PRN Reason: Consult order Sodium Chloride (0.9 % Sodium Chloride Flush 3 Ml Syringe) 3 ml IVFLUSH QSHIFT [facility] Physical Exam 2 Vital Signs and Narrative: Vital Signs: Last Vital Signs Temp 99.8 F 01/18/23 03:38 Pulse 89 01/18/23 03:38 Resp 20 01/18/23 03:38 BP 135/78 01/18/23 03:38 Pulse Ox 100 01/18/23 02:31 O2 Del Method Room Air 01/18/23 02:31 BMI result Body Mass Index 34.2 Const: Other: Obtunded, arousable to painful stimuli General: no acute distress Eyes: General: appearance normal, both eyes and all related structures Resp: Effort & Inspection: normal respiratory effort Auscultation: clear to auscultation bilaterally Cardio: Rate: regular rate Rhythm: regular rhythm GI: Palpation (GI): Soft to palpation Auscultation: normal bowel sounds Skin: General skin exam: no rashes or lesions noted Extrem: General: Yes normal to inspection and Yes no pedal edema Results Labs 01/17/23 17:02 01/17/23 17:02 Labs: Laboratory Results - last 24 hr 01/17/23 01/17/23 01/17/23 16:33 17:02 17:24 MCV 90.9 MCH 29.9 MCHC 32.9 RDW 14.2 Plt Count 229 MPV 10.7 Immature Gran % (Auto) 0.8 H Neut % (Auto) 69.6 Lymph % (Auto) 21.0 [place] % (Auto) 6.7 Eos % (Auto) 1.7 Baso % (Auto) 0.2 Lymph # (Auto) 2.1 [place] # (Auto) 0.7 Eos # (Auto) 0.2 Baso # (Auto) 0.0 Abs Immat Gran (auto) 0.08 H Absolute Neuts (auto) 7.0 Absolute Nucleated RBC 0.000 Nucleated RBC % (auto) 0.0 O2 Saturation ABG pH at Pt Temp ABG pCO2 at Pt Temp ABG pO2 at Pt Temp ABG HCO3 ABG Base Excess (Actual) VBG pH VBG pCO2 VBG pO2 VBG HCO3 VBG O2 Saturation VBG Base Excess Anion Gap 13 Estim Creat Clear Calc 113.6 Estimated GFR > 60 POC Glucose 168 H Random Glucose 130 H Lactic Acid 3.4 H* Lactic Acid F/U @ 2Hr Calcium 10.0 Total Bilirubin 0.4 Direct Bilirubin 0.2 AST 97 H ALT 60 H Alkaline Phosphatase 195 H Ammonia 40 Total Protein 7.1 Albumin 3.6 Lipase 297 H Urine Color Urine Appearance Urine pH Ur Specific [place] Urine Protein Urine Glucose (UA) Urine Ketones Urine Blood Urine Nitrite Ur Leukocyte Esterase Urine RBC Urine WBC Ur Squamous Epith Cells Urine Bacteria Hyaline Casts Urine Opiates Screen Urine Fentanyl Screen Ur Barbiturates Screen Ur Phencyclidine Scrn Ur Amphetamines Screen U Benzodiazepines Scrn Urine Cocaine Screen U Marijuana (THC) Screen Ethyl Alcohol < 10 Influenza Type A (PCR) NEGATIVE Influenza Type B (PCR) NEGATIVE RSV RNA Qual (PCR) NEGATIVE SARS-CoV-2 RNA (RT-PCR) NEGATIVE 01/17/23 01/17/23 01/17/23 18:24 19:40 21:53 MCV MCH MCHC RDW Plt Count MPV Immature Gran % (Auto) Neut % (Auto) Lymph % (Auto) [place] % (Auto) Eos % (Auto) Baso % (Auto) Lymph # (Auto) [place] # (Auto) Eos # (Auto) Baso # (Auto) Abs Immat Gran (auto) Absolute Neuts (auto) Absolute Nucleated RBC Nucleated RBC % (auto) O2 Saturation ABG pH at Pt Temp ABG pCO2 at Pt Temp ABG pO2 at Pt Temp ABG HCO3 ABG Base Excess (Actual) VBG pH 7.53 H VBG pCO2 36 VBG pO2 178 VBG HCO3 30 H VBG O2 Saturation 100.0 VBG Base Excess 7.5 Anion Gap Estim Creat Clear Calc Estimated GFR POC Glucose Random Glucose Lactic Acid Lactic Acid F/U @ 2Hr 1.8 Calcium Total Bilirubin Direct Bilirubin AST ALT Alkaline Phosphatase Ammonia Total Protein Albumin Lipase Urine Color Yellow Urine Appearance Clear Urine pH 7.5 Ur Specific [place] 1.010 Urine Protein Negative Urine Glucose (UA) Negative Urine Ketones Negative Urine Blood Small (1+) H Urine Nitrite Negative Ur Leukocyte Esterase Trace H Urine RBC 0-2 Urine WBC 0-5 Ur Squamous Epith Cells 0-2 Urine Bacteria Trace Hyaline Casts 0-2 Urine Opiates Screen Not Detected Urine Fentanyl Screen POSITIVE H Ur Barbiturates Screen Not Detected Ur Phencyclidine Scrn Not Detected Ur Amphetamines Screen Not Detected U Benzodiazepines Scrn Not Detected Urine Cocaine Screen POSITIVE H U Marijuana (THC) Screen Not Detected Ethyl Alcohol Influenza Type A (PCR) Influenza Type B (PCR) RSV RNA Qual (PCR) SARS-CoV-2 RNA (RT-PCR) 01/17/23 23:34 MCV MCH MCHC RDW Plt Count MPV Immature Gran % (Auto) Neut % (Auto) Lymph % (Auto) [place] % (Auto) Eos % (Auto) Baso % (Auto) Lymph # (Auto) [place] # (Auto) Eos # (Auto) Baso # (Auto) Abs Immat Gran (auto) Absolute Neuts (auto) Absolute Nucleated RBC Nucleated RBC % (auto) O2 Saturation 98.0 ABG pH at Pt Temp 7.52 H ABG pCO2 at Pt Temp 37 ABG pO2 at Pt Temp 80 L ABG HCO3 30 H ABG Base Excess (Actual) 7.8 VBG pH VBG pCO2 VBG pO2 VBG HCO3 VBG O2 Saturation VBG Base Excess Anion Gap Estim Creat Clear Calc Estimated GFR POC Glucose Random Glucose Lactic Acid Lactic Acid F/U @ 2Hr Calcium Total Bilirubin Direct Bilirubin AST ALT Alkaline Phosphatase Ammonia Total Protein Albumin Lipase Urine Color Urine Appearance Urine pH Ur Specific [place] Urine Protein Urine Glucose (UA) Urine Ketones Urine Blood Urine Nitrite Ur Leukocyte Esterase Urine RBC Urine WBC Ur Squamous Epith Cells Urine Bacteria Hyaline Casts Urine Opiates Screen Urine Fentanyl Screen Ur Barbiturates Screen Ur Phencyclidine Scrn Ur Amphetamines Screen U Benzodiazepines Scrn Urine Cocaine Screen U Marijuana (THC) Screen Ethyl Alcohol Influenza Type A (PCR) Influenza Type B (PCR) RSV RNA Qual (PCR) SARS-CoV-2 RNA (RT-PCR) Imaging Radiologist's Impressions: Impressions Head CT 01/17/23 20:22 IMPRESSION: Possible hypoattenuation of the left temporal lobe. This may be artifactual and related to beam hardening as well as technical degradation. Advise clinical correlation and possible repeat imaging may be indicated. Abdomen/Pelvis CT 01/17/23 20:25 IMPRESSION: Technically difficult study. No acute abnormality in the chest, abdomen or pelvis. Chest CT 01/17/23 20:25 IMPRESSION: Technically difficult study. No acute abnormality in the chest, abdomen or pelvis. Assessment and Plan (1) Sepsis: Qualifiers: Sepsis type: sepsis due to unspecified organism Sepsis acute organ dysfunction status: without acute organ dysfunction Qualified Code(s): A41.9 - Sepsis, unspecified organism Status: Acute (2) Acute metabolic encephalopathy: Status: Acute (3) Substance abuse: Status: Acute (4) Transaminitis: Status: Acute (5) Abnormal head CT: Status: Acute Plan 57-year-old male with history of IV drug use,? CAD, comes into the hospital with encephalopathy, as well as fever. # sepsis - unclear etiology - chest x-ray negative, UA shows no significant infection - has history of IV drug use, therefore presentation as concerning for endocarditis - will treat with broad-spectrum antibiotics - echocardiogram - follow cultures # febrile - although chest CT is a technically difficult study, patient has no evidence of pneumonia - UA is mildly positive for leukocyte Estrace, some WBC with trace bacteria - Tylenol p.r.n. - IV antibiotics # acute metabolic encephalopathy - possibly secondary to IV drug use, sepsis - head CT shows possible hypoattenuation - will obtain brain MRI - follow mentation # transaminitis - unclear etiology, possibly secondary to drug abuse, no evidence of hypotension - mildly elevated - follow liver panel # abnormal head CT - as mentioned above - will obtain MRI Given patient's need for further management of sepsis, encephalopathy, patient require minimum 2 night inpatient hospital stay for further management and monitoring Time Spent With Patient Time: Total time managing care of this patient today ____ minutes. Quality Stroke Does the patient have a stroke diagnosis?: No VTE Prior VTE?: No VTE Risk Level:: Medical - moderate - high VTE Device Contraindication: Treatment Not Indicated VTE Drug Contraindication: N/A - Med Ordered
--- NOTE | 2023-01-18 07:15 | PHA.PROG ---
Admission Date/Time: January 18, 2023 00:03 Indication: OTHER (SEPSIS?) Weight in k.3 kg Adjusted body weight in Kg: [place] body weight in Kg: Obesity Dosing Indication % IBW: Serum Creatinine - Last 168 Hours 01/17/23 17:02 Creatinine 0.91 Estimated CrCl and GFR - Last 168 Hours 01/17/23 17:02 Estim Creat Clear Calc 113.6 Estimated GFR > 60 Vancomycin Loading Dose: 2000 MG Current Vancomycin Dosing Regimen: 1250 Q12H Vancomycin Monitoring using AUC goal of 400 - 600 range with trough as surrogate marker: AUC 484, TROUGH 15.4 Date and Time for next Vancomycin Level to be drawn: 01/19 @1100 Pharmacist Comments on Vancomycin Plan: Vancomycin dosing will take advantage of [employer] as a clinical decision support tool that uses Bayesian modeling to calculate individual patient's pharmacokinetic parameters and forecast the patient's drug concentration time course with the target goal AUC 24 range of 400 - 600 mg/L/hr.
[2023-01-18 07:18] LABS: MANUAL DIFF FLAG NO
[2023-01-18 07:22] LABS: Basophils Percent Auto 0.2 % (0-2); Eosinophils Absolute Auto 0.2 X10*3/uL (0.0-0.4); Eosinophils Percent Auto 1.5 % (0-4); Hematocrit 35.8 % (42.0-52.0); Hemoglobin 11.9 g/dl (14.0-18.0); Imm Gran Abs Auto 0.05 X10*3/uL (0.00-0.03); Imm Gran Pct Auto 0.4 % (0.0-0.4); Lymphocytes Absolute Auto 3.8 X10*3/uL (1.2-4.9); Lymphocytes Percent Auto 30.3 % (20-40); Mean Corpuscular HGB Conc 33.2 g/dl (31.0-36.0); Mean Corpuscular Hemoglobin 29.7 pg (27.0-33.0); Mean Corpuscular Volume 89.3 fL (80.0-98.0); Mean Platelet Volume 10.7 fL (9.4-12.4); Monocytes Absolute Auto 0.8 X10*3/uL (0.1-1.2); Monocytes Percent Auto 6.5 % (2-11); Neutrophils Absolute Auto 7.6 x10*3/uL (2.0-8.3); Neutrophils Percent Auto 61.1 % (45-73); Platelet Count 220 X10*3/uL (160-400); Red Blood Count 4.01 X10*6/uL (4.60-5.80); Red Cell Distribution Width 14.2 % (11.0-16.0); White Blood Count 12.4 X10*3/uL (4.8-10.8)
[2023-01-18 07:36] LABS: Anion Gap 11 (12-20); Blood Urea Nitrogen 9 mg/dL (9-16); Calcium 9.4 mg/dL (8.4-10.2); Carbon Dioxide 27 mmol/L (22-29); Chloride 109 mmol/L (96-108); Creatinine Clr Calc Pharmacy 124.5; Estimated Glomerular Filt Rate > 60; Glucose Random 87 mg/dL (60-115); Potassium 3.5 mmol/L (3.3-5.1); Sodium 143 mmol/L (135-145)
[2023-01-18 08:00] VITALS: BP 146/66; PULSE 86; RESP 20; TEMP 36.8; O2SAT 98
--- NOTE | 2023-01-18 09:03 | PHA.MEDREC ---
Pharmacy Consult ? Medication Reconciliation Pharmacy has completed the medication reconciliation. Channel Account Manager services used, patient is a poor historian. Unsure of what medications he takes, but states they are for diabetes, cholesterol and high blood pressure. He noted his lantus was 30 units. Stated to patient that he has not filled anything since August, but he was insistent that he picked up 5 days ago. Used claim history.
--- NOTE | 2023-01-18 09:12 | MHC.CM.PN ---
CM attempted to meet with Patient at bedside; Patient did not appear able to respond appropriately to questions;CM spoke with Only Contact/Niece/Doretha @ [phone]. Patient lives alone in an apartment and required no services nor DME SCIENCE SPECIALIST. Tentative dc plan is home/self care. CM has initiated and will follow for dc planning. PCP is from [facility].
--- NOTE | 2023-01-18 09:17 | MHC.CM.PN ---
Patient may benefit from a Recovery Team consult; please see Toxicology.
[2023-01-18] MEDS: Enoxaparin Sodium 40 MG/0.4 ML SYRINGE SUBCUT (10:24)
[2023-01-18 11:05] LABS: Estimated Average Glucose 166 mg/dL; Hemoglobin A1c % 7.4 % (<6.0)
[2023-01-18 12:00] VITALS: BP 155/70; PULSE 83; RESP 20; TEMP 37.3; O2SAT 98
[2023-01-18 12:24] LABS: Glucose, Whole Blood 155 mg/dL (60-115)
[2023-01-18] MEDS: Aspirin Enteric Coated 81 MG TABLET.DR PO (12:55)
[2023-01-18] MEDS: lisinopriL 20 MG TABLET PO (12:56)
[2023-01-18] MEDS: Insulin Lispro 100 UNIT/ML 3 ML VIAL SUBCUT ×2 (12:56→20:30)
--- NOTE | 2023-01-18 13:04 | PM.EVENT ---
Event Note Date of Service: 01/18/23 Event Note: Day hospitalist update S: endorses drug abuse [facility] [place] unconcerned about his hx of cardiac arrest febrile to 101.7 yesterday evening, no fever since O: VS- T 99.1, BP 155/70, P 83, R 20, SaO2 98 on RA Gen: in no acute distress HEENT: sclera anicteric, moist mucus membranes Neck: supple Lungs: clear to auscultation bilaterally Heart: regular rate and rhythm, no murmurs Abd: soft, non-tender, non-distended Ext: no edema Skin: warm/well-perfused Neuro: alert and oriented x3, no focal findings Psych: appropriate affect labs: WBC 12.4 A/P: d1 57yo M with HFrEF, DM2, HTN, HLD, polysubstance abuse disorder hx VF/VT cardiac arrest 11/03/22, cardiac cath at [facility] 11/04 with mild LAD dz, moderate OM1/RCA dz, TTE 11/04 with LVEF 25% + global hypokinesis, 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 pt has isolated +HBc polysubstance abuse - Addiction Medicine consultation CAD cardiomyopathy - ASA, atorvastatin, losartan, furosemide, spironolactone - hold b-laura for now given cocaine abuse - will need outpt Cardiology f/u VTE ppx - LMWH dispo - TBD In my clinical judgment, the patient requires continued hospitalization for the following reasons: IV ABX Time Spent With Patient Time: Total time managing care of this patient today __45__ minutes.
[2023-01-18] MEDS: vancomycin HCL 1,250 MG in 0.9 % Sodium Chloride 250 ML 166.67 MG IV (13:30)
[2023-01-18] MEDS: Spironolactone 25 MG TABLET PO (13:30)
[2023-01-18 15:31] VITALS: BP 142/65; PULSE 67; RESP 18; TEMP 36.8; O2SAT 99
[2023-01-18 15:54] LABS: Glucose, Whole Blood 142 mg/dL (60-115)
--- NOTE | 2023-01-18 17:33 | HO.ADDICT_ITS ---
History of Present Illness Date of Service: 01/18/2023 Chief Complaint: Febrile HPI Narrative: Patient is a 57-year-old Mauritanian-speaking male currently medically admitted with encephalopathy and sepsis. Patient reporting substance use and urine drug screen positive for cocaine and fentanyl. Patient seen by this adjusto writer operator in room 460. He was laying in bed, awake and watching TV. Patient appeared uncomfortable, grimacing and rolling around the bed. Patient unable to articulate any symptoms he was experiencing. When asked about substance use he reports that he smokes crack cocaine and uses heroin/fentanyl intranasally. Unclear when last use was or amount that he uses as he had varying reports throughout the interview. When asked about medications to treat withdrawal patient stated that he would like to start Suboxone but stated he did not want to started at this time. He declined methadone. When asked if he was feeling withdrawal he said no then rolled over in his bed and did not answer any additional questions. Past Psychiatric History: Patient denies IP LOC, reports went to detox 1 time approximately 5-6 years ago at [facility], and left after 1 day. Review of Systems Review of Systems Yes Unobtainable due to mental status Diagnostics Vital Signs (24Hr): Vital Signs - 24 hr 01/17/23 18:00 01/17/23 19:45 01/17/23 20:31 Temperature 101.7 F H 99.3 F Pulse Rate 103 H 90 97 Respiratory Rate 38 H 24 H Blood Pressure 152/66 H 163/72 H Pulse Oximetry 103 H Oxygen Delivery Method Room Air 01/17/23 23:52 01/18/23 02:31 01/18/23 03:38 Temperature 100.1 F 99.8 F Pulse Rate 100 88 89 Respiratory Rate 22 H 22 H 20 Blood Pressure 153/72 H 154/66 H 135/78 Pulse Oximetry 100 100 Oxygen Delivery Method Room Air Room Air 01/18/23 08:00 01/18/23 12:00 01/18/23 15:31 Temperature 98.3 F 99.1 F 98.2 F Pulse Rate 86 83 67 Respiratory Rate 20 20 18 Blood Pressure 146/66 H 155/70 H 142/65 H Pulse Oximetry 98 98 99 Oxygen Delivery Method Room Air Room Air Room Air BMI result Body Mass Index 34.2 Labs 01/18/23 07:04 01/18/23 07:04 Labs: Laboratory Results - last 48 hr 01/17/23 01/17/23 01/17/23 16:33 17:02 17:24 WBC 10.1 RBC 4.08 L Hgb 12.2 L Hct 37.1 L MCV 90.9 MCH 29.9 MCHC 32.9 RDW 14.2 Plt Count 229 MPV 10.7 Immature Gran % (Auto) 0.8 H Neut % (Auto) 69.6 Lymph % (Auto) 21.0 Sanders % (Auto) 6.7 Eos % (Auto) 1.7 Baso % (Auto) 0.2 Lymph # (Auto) 2.1 Sanders # (Auto) 0.7 Eos # (Auto) 0.2 Baso # (Auto) 0.0 Abs Immat Gran (auto) 0.08 H Absolute Neuts (auto) 7.0 Absolute Nucleated RBC 0.000 Nucleated RBC % (auto) 0.0 O2 Saturation ABG pH at Pt Temp ABG pCO2 at Pt Temp ABG pO2 at Pt Temp ABG HCO3 ABG Base Excess (Actual) VBG pH VBG pCO2 VBG pO2 VBG HCO3 VBG O2 Saturation VBG Base Excess Sodium 143 Potassium 3.7 Chloride 108 Carbon Dioxide 26 Anion Gap 13 BUN 16 Creatinine 0.91 Estim Creat Clear Calc 113.6 Estimated GFR > 60 POC Glucose 168 H Random Glucose 130 H Estimat Average Glucose Hemoglobin A1c % Lactic Acid 3.4 H* Lactic Acid F/U @ 2Hr Calcium 10.0 Total Bilirubin 0.4 Direct Bilirubin 0.2 AST 97 H ALT 60 H Alkaline Phosphatase 195 H Ammonia 40 Troponin I High Sens 41.5 H Total Protein 7.1 Albumin 3.6 Lipase 297 H Urine Color Urine Appearance Urine pH Ur Specific Mitchell Urine Protein Urine Glucose (UA) Urine Ketones Urine Blood Urine Nitrite Ur Leukocyte Esterase Urine RBC Urine WBC Ur Squamous Epith Cells Urine Bacteria Hyaline Casts Urine Opiates Screen Urine Fentanyl Screen Ur Barbiturates Screen Ur Phencyclidine Scrn Ur Amphetamines Screen U Benzodiazepines Scrn Urine Cocaine Screen U Marijuana (THC) Screen Ethyl Alcohol < 10 Influenza Type A (PCR) NEGATIVE Influenza Type B (PCR) NEGATIVE RSV RNA Qual (PCR) NEGATIVE SARS-CoV-2 RNA (RT-PCR) NEGATIVE 01/17/23 01/17/23 01/17/23 18:24 19:40 21:53 WBC RBC Hgb Hct MCV MCH MCHC RDW Plt Count MPV Immature Gran % (Auto) Neut % (Auto) Lymph % (Auto) Sanders % (Auto) Eos % (Auto) Baso % (Auto) Lymph # (Auto) Sanders # (Auto) Eos # (Auto) Baso # (Auto) Abs Immat Gran (auto) Absolute Neuts (auto) Absolute Nucleated RBC Nucleated RBC % (auto) O2 Saturation ABG pH at Pt Temp ABG pCO2 at Pt Temp ABG pO2 at Pt Temp ABG HCO3 ABG Base Excess (Actual) VBG pH 7.53 H VBG pCO2 36 VBG pO2 178 VBG HCO3 30 H VBG O2 Saturation 100.0 VBG Base Excess 7.5 Sodium Potassium Chloride Carbon Dioxide Anion Gap BUN Creatinine Estim Creat Clear Calc Estimated GFR POC Glucose Random Glucose Estimat Average Glucose Hemoglobin A1c % Lactic Acid Lactic Acid F/U @ 2Hr 1.8 Calcium Total Bilirubin Direct Bilirubin AST ALT Alkaline Phosphatase Ammonia Troponin I High Sens 64.1 H D Total Protein Albumin Lipase Urine Color Yellow Urine Appearance Clear Urine pH 7.5 Ur Specific Mitchell 1.010 Urine Protein Negative Urine Glucose (UA) Negative Urine Ketones Negative Urine Blood Small (1+) H Urine Nitrite Negative Ur Leukocyte Esterase Trace H Urine RBC 0-2 Urine WBC 0-5 Ur Squamous Epith Cells 0-2 Urine Bacteria Trace Hyaline Casts 0-2 Urine Opiates Screen Not Detected Urine Fentanyl Screen POSITIVE H Ur Barbiturates Screen Not Detected Ur Phencyclidine Scrn Not Detected Ur Amphetamines Screen Not Detected U Benzodiazepines Scrn Not Detected Urine Cocaine Screen POSITIVE H U Marijuana (THC) Screen Not Detected Ethyl Alcohol Influenza Type A (PCR) Influenza Type B (PCR) RSV RNA Qual (PCR) SARS-CoV-2 RNA (RT-PCR) 01/17/23 01/18/23 01/18/23 23:34 07:04 12:20 WBC 12.4 H RBC 4.01 L Hgb 11.9 L Hct 35.8 L MCV 89.3 MCH 29.7 MCHC 33.2 RDW 14.2 Plt Count 220 MPV 10.7 Immature Gran % (Auto) 0.4 Neut % (Auto) 61.1 Lymph % (Auto) 30.3 Sanders % (Auto) 6.5 Eos % (Auto) 1.5 Baso % (Auto) 0.2 Lymph # (Auto) 3.8 Sanders # (Auto) 0.8 Eos # (Auto) 0.2 Baso # (Auto) 0.0 Abs Immat Gran (auto) 0.05 H Absolute Neuts (auto) 7.6 Absolute Nucleated RBC 0.000 Nucleated RBC % (auto) 0.0 O2 Saturation 98.0 ABG pH at Pt Temp 7.52 H ABG pCO2 at Pt Temp 37 ABG pO2 at Pt Temp 80 L ABG HCO3 30 H ABG Base Excess (Actual) 7.8 VBG pH VBG pCO2 VBG pO2 VBG HCO3 VBG O2 Saturation VBG Base Excess Sodium 143 Potassium 3.5 Chloride 109 H Carbon Dioxide 27 Anion Gap 11 L BUN 9 Creatinine 0.83 Estim Creat Clear Calc 124.5 Estimated GFR > 60 POC Glucose 155 H Random Glucose 87 Estimat Average Glucose 166 Hemoglobin A1c % 7.4 H Lactic Acid Lactic Acid F/U @ 2Hr Calcium 9.4 Total Bilirubin Direct Bilirubin AST ALT Alkaline Phosphatase Ammonia Troponin I High Sens Total Protein Albumin Lipase Urine Color Urine Appearance Urine pH Ur Specific Mitchell Urine Protein Urine Glucose (UA) Urine Ketones Urine Blood Urine Nitrite Ur Leukocyte Esterase Urine RBC Urine WBC Ur Squamous Epith Cells Urine Bacteria Hyaline Casts Urine Opiates Screen Urine Fentanyl Screen Ur Barbiturates Screen Ur Phencyclidine Scrn Ur Amphetamines Screen U Benzodiazepines Scrn Urine Cocaine Screen U Marijuana (THC) Screen Ethyl Alcohol Influenza Type A (PCR) Influenza Type B (PCR) RSV RNA Qual (PCR) SARS-CoV-2 RNA (RT-PCR) 01/18/23 15:41 WBC RBC Hgb Hct MCV MCH MCHC RDW Plt Count MPV Immature Gran % (Auto) Neut % (Auto) Lymph % (Auto) Sanders % (Auto) Eos % (Auto) Baso % (Auto) Lymph # (Auto) Sanders # (Auto) Eos # (Auto) Baso # (Auto) Abs Immat Gran (auto) Absolute Neuts (auto) Absolute Nucleated RBC Nucleated RBC % (auto) O2 Saturation ABG pH at Pt Temp ABG pCO2 at Pt Temp ABG pO2 at Pt Temp ABG HCO3 ABG Base Excess (Actual) VBG pH VBG pCO2 VBG pO2 VBG HCO3 VBG O2 Saturation VBG Base Excess Sodium Potassium Chloride Carbon Dioxide Anion Gap BUN Creatinine Estim Creat Clear Calc Estimated GFR POC Glucose 142 H Random Glucose Estimat Average Glucose Hemoglobin A1c % Lactic Acid Lactic Acid F/U @ 2Hr Calcium Total Bilirubin Direct Bilirubin AST ALT Alkaline Phosphatase Ammonia Troponin I High Sens Total Protein Albumin Lipase Urine Color Urine Appearance Urine pH Ur Specific Mitchell Urine Protein Urine Glucose (UA) Urine Ketones Urine Blood Urine Nitrite Ur Leukocyte Esterase Urine RBC Urine WBC Ur Squamous Epith Cells Urine Bacteria Hyaline Casts Urine Opiates Screen Urine Fentanyl Screen Ur Barbiturates Screen Ur Phencyclidine Scrn Ur Amphetamines Screen U Benzodiazepines Scrn Urine Cocaine Screen U Marijuana (THC) Screen Ethyl Alcohol Influenza Type A (PCR) Influenza Type B (PCR) RSV RNA Qual (PCR) SARS-CoV-2 RNA (RT-PCR) Imaging Radiology Impressions: ITS Impressions Head CT 01/17/23 20:22 IMPRESSION: Possible hypoattenuation of the left temporal lobe. This may be artifactual and related to beam hardening as well as technical degradation. Advise clinical correlation and possible repeat imaging may be indicated. Abdomen/Pelvis CT 01/17/23 20:25 IMPRESSION: Technically difficult study. No acute abnormality in the chest, abdomen or pelvis. Chest CT 01/17/23 20:25 IMPRESSION: Technically difficult study. No acute abnormality in the chest, abdomen or pelvis. Head CT 01/18/23 15:28 IMPRESSION: No acute intracranial pathology. Previously questioned low-attenuation in the left temporal lobe longer seen and was probably artifactual. Mental Status Exam Mental Status Exam Patient Appearance: Perspiring Level of Consciousness: Awake and Restless Medications Medications Current Medications Acetaminophen (Acetaminophen 325 Mg Tablet) 650 mg PO Q6H PRN PRN Reason: Pain, Mild (Pain Scale 1-3) Last Admin: 01/18/23 02:38 Dose: 650 mg Aspirin (Aspirin Enteric Coated 81 Mg Tablet.) 81 mg PO DAILY [facility] Last Admin: 01/18/23 12:55 Dose: 81 mg Atorvastatin Calcium (Atorvastatin Calcium 40 Mg Tablet) 40 mg PO BEDTIME [facility] Dextrose (Dextrose 50 % 25 Gm/50 Ml Syringe) 25 gm IVPUSH Q15M PRN; Protocol PRN Reason: per Hypoglycemia Standing Ord. Docusate Sodium (Docusate Sodium 100 Mg Capsule) 100 mg PO DAILY PRN PRN Reason: Constipation Docusate Sodium (Docusate Sodium 100 Mg Capsule) 100 - 200 mg PO BEDTIME PRN PRN Reason: constipation Enoxaparin Sodium (Enoxaparin Sodium 40 Mg/0.4 Ml Syringe) 40 mg SUBCUT Q24H [facility] Last Admin: 01/18/23 10:24 Dose: 40 mg Furosemide (Furosemide 20 Mg Tablet) 20 mg PO DAILY [facility]; Protocol Glucose (Glucose Gel 15 Gm Gel..Gram.) 15 gm PO Q15M PRN; Protocol PRN Reason: per Hypoglycemia Standing Ord. Lactated Ringer's (Lr) 1,000 mls @ 150 mls/hr IVCONT .Q6H40M [facility] Last Admin: 01/18/23 14:02 Dose: Not Given Piperacillin Sod/Tazobactam (Sod 3.375 gm/ Sodium Chloride) 50 mls @ 100 mls/hr IV Q6H [facility] Last Infusion: 01/18/23 13:39 Dose: Infused Vancomycin HCl 1,250 mg/ (Sodium Chloride) 250 mls @ 166.667 mls/hr IV Q12H [facility] Last Infusion: 01/18/23 15:23 Dose: Infused Insulin Human Lispro (Insulin Lispro 100 Unit/Ml 3 Ml Vial) 0 unit SUBCUT QIDACHS [facility]; Protocol Last Admin: 01/18/23 15:58 Dose: Not Given Losartan Potassium (Losartan Potassium 50 Mg Tablet) 100 mg PO DAILY [facility]; Protocol Ondansetron HCl (Ondansetron Hcl 4 Mg/2 Ml Vial) 4 mg IVPUSH Q8H PRN PRN Reason: Nausea and Vomiting Pharmacy Consult (Consult Rx Vancomycin Dosing) 1 each MISCELLANE DAILY PRN PRN Reason: Consult order Sodium Chloride (0.9 % Sodium Chloride Flush 3 Ml Syringe) 3 ml IVFLUSH QSHIFT [facility] Last Admin: 01/18/23 15:23 Dose: Not Given Spironolactone (Spironolactone 25 Mg Tablet) 25 mg PO DAILY [facility]; Protocol Last Admin: 01/18/23 13:30 Dose: 25 mg Allergies Allergies Allergy/AdvReac Type Severity Reaction Status Date / Time Penicillins [PCN] Allergy Intermediate HIVES Verified 01/18/23 07:24 Assessment & Plan Assessment & Plan (1) Opioid use disorder: Status: Acute Code(s): F11.90 - Opioid use, unspecified, uncomplicated Assessment and Plan: * patient appearing uncomfortable, however denying withdrawal sx * declines methadone --requesting buprenorphine, but declining at time of interview * Unclear if patient fully appreciates what is occurring at this time, would recommend methadone 10 mg q.3 hours for a max of 4 doses to address withdrawal symptoms--especially if they are contributing to what appears to be altered mental status (unclear what patient's baseline is) Total time managing care of this patient today _30___ minutes. [facility] Past Medical History Medical History Chest pain Diabetes Essential hypertension History of CVA (cerebrovascular accident) HTN (hypertension) Morbid obesity Type 2 diabetes mellitus with unspecified complications Unstable angina Family History Family History Other CAD (coronary artery disease) Diabetes HTN (hypertension) Surgical History Surgical History No pertinent past surgical history Social History Social History (System 01/18/23 @ 07:24 by Faye Mandujano) Household Members: None Housing: Apartment Do you presently have visiting nurse or other home services: Yes Patient Tobacco Use Status: Tobacco use Unknown Tobacco use type: Cigarette Substance Use Type: Crack/Cocaine service: No Current occupational status: unemployed
--- NOTE | 2023-01-18 18:45 | PC.NURSE ---
Patient's niece and home [employer] left phone number for any info needed [phone]
[2023-01-18 19:32] VITALS: BP 169/72; PULSE 79; RESP 18; TEMP 36.8; O2SAT 98
[2023-01-18 20:09] LABS: Glucose, Whole Blood 188 mg/dL (60-115)
[2023-01-18] MEDS: Atorvastatin Calcium 40 MG TABLET PO (20:30)
[2023-01-18] MEDS: 0.9 % Sodium Chloride Flush 3 ML SYRINGE IVFLUSH ×2 (20:31→23:56)
[2023-01-18] MEDS: Ketorolac Tromethamine 15 MG/ML VIAL IVPUSH (21:02)
[2023-01-18] MEDS: Melatonin 3 MG TABLET 6 MG PO (21:03)
--- NOTE | 2023-01-18 23:35 | PC.NURSE ---
Care assumed 19:15. Swiss speaking, site interpreter used. Pt A&Ox3, forgetful at times but reorients easily. Pt's family reports pt having recent falls at home as evidenced by skin tears/abraisons to left abdomen and left elbow. Bandaid in place, c/d/i. Bed alarm on and in-room camera in place for safety. Pt given 1x toradol for c/o achy back pain with +effect reported. Given melatonin as well for pt request of something for sleep ; +effect. Pt observed resting in bed, appears comfortable. Breathing is even and unlabored without distress. Handoff report given to oncoming RN at 23:30.
[2023-01-19] VITALS: BP 145/64; PULSE 63; RESP 15; TEMP 36.6; O2SAT 99
[2023-01-19] MEDS: vancomycin HCL 1,250 MG in 0.9 % Sodium Chloride 250 ML 166.67 MG IV ×2 (00:20→14:02)
[2023-01-19 03:30] VITALS: BP 164/86; PULSE 73; RESP 16; TEMP 36.5; O2SAT 98
[2023-01-19] MEDS: Lactated Ringers 1,000 ML 150 ML IVCONT ×3 (03:54→18:07)
[2023-01-19] MEDS: Piperacillin Sodium/Tazobactam 3.375 GM in 0.9 % Sodium Chloride 50 ML IV ×4 (05:47→23:55)
--- NOTE | 2023-01-19 07:00 | CA_ITS ---
Transthoracic Echocardiogram Patient (Last, First, Middle): David Russ, Gender: Male Date of : 1965 Age: 57 Procedure Date: 01/19/2023 Procedure Type: Transthoracic Echocardiogram Location: [facility] Height: 180.34 cm Weight: 111.13 kg BSA: 2.30 m2 Heart Rate: bpm BP: 135 / 78 mmHg Marketing Research Analyst: TICO/DESTINY Referring MD: Shabbir Esquivel MD Symptoms: IVDU, Fever Study Quality: Fair Conclusions: - The left ventricular systolic function is severely decreased. The visually estimated ejection fraction is between 20-25%. - There is severe global hypokinesis. - The basal inferior segment is akinetic. - No obvious valvular pathology seen on this study. Findings Left Ventricle Moderately increased left ventricular cavity size. There is moderately increased left ventricular wall thickness. The left ventricular systolic function is severely decreased. The visually estimated ejection fraction is between 20-25%. There is severe global hypokinesis. Evidence suggests grade I (mild) diastolic dysfunction. Wall Motion Rest Echo Findings The basal inferior segment is akinetic. Right Ventricle Mildly increased right ventricular cavity size. There is normal right ventricular systolic function. Atria Both atria are normal in size. Aortic Valve There is a normal trileaflet aortic valve. There is mild calcification of the aortic valve. There is no aortic valve stenosis. There is no aortic valve regurgitation. Mitral Valve The mitral valve appears normal. There is mild mitral valve regurgitation. There is no mitral valve stenosis. Pulmonic Valve The pulmonic valve is likely normal. Tricuspid Valve Normal tricuspid valve structure. There is trace tricuspid valve regurgitation. Tricuspid regurgitation envelope is inadequate for calculation of right ventricular systolic pressure. Great Vessels The asc aorta is normal in size. Venous The inferior vena cava is normal in size and collapses less than 50% with inspiration. Pericardium/Pleural There is no evidence of pericardial effusion. Prior Study Comparison Changes noted compared to prior study dated: 02/11/2021. Basal inferior akinesis not described in prior study. Recommendations, Care & Conclusions No obvious valvular pathology seen on this study. Measurements 2D Linear Measurements IVSd: 1.39 0.6-0.9/0.6-1.0 cm LVIDd: 6.64 3.9-5.3/4.2-5.9 cm LVIDd Index: 2.89 2.4-3.2/2.2-3.1 cm/m2 LVIDs: 5.41 2.0-3.6 cm LVPWd: 1.38 0.7-1.1 cm Ao Root: 3.40 2.1-3.5 cm LA Diam: 4.40 2.7-3.8/3.0-4.0 cm LAIDs Index: 1.91 1.5-2.3 cm/m2 LV Mass: 562.10 67-162/88-224 g LV Mass Index: 244.39 43-95/49-115 g/m2 LVOT Diam: 2.60 3.0+(-)1.3 cm 2D Systolic Function EF 4C: 31.90 >55% EF 2C: 42.80 >55% EF BiP: 37.30 >55% Mitral Valve MV Pk E: 0.64 MV PK A: 0.82 MV Decel Time: 234.00 E/A: 0.80 E'Lateral: 5.44 E'Medial: 4.79 E/E' Med: 13.40 E/E' Lat: 11.80 PHT: 69.00 MVA PHT: 3.19 Decel [place]: 2.75 Aortic Valve AoV Pk Mayank: 1.26 AoV Mn Mayank: 0.91 AoV VTI: 0.30 AoV Pk Grad: 6.00 Aov Mn Grad: 4.00 HEMANTH Cont.VTI: 3.56 LVOT LVOT Pk Mayank: 0.93 LVOT Mn Mayank: 0.63 LVOT VTI: 0.20 LVOT Pk Grad: 3.00 LVOT Mn Grad: 2.00 LVOT Diam: 2.60 LVOT Area: 5.31 Diastolic Function MV Pk E: 0.64 MV Pk A: 0.82 E/A: 0.80 E'Medial: 4.79 E/E' Med: 13.40 E' Laterial: 5.44 E/E' Lat: 11.80 Right Ventricle TAPSE (mm): 34.00 TVS' Mayank: 16.00 Tricuspid Valve RA Press: 15.00 Great Vessels Aorta Ao Root-2D: 3.40 2.0-3.7 cm Ao Asc: 3.60 2.1-3.4 cm Updated in Other Vendor System with Status of Final Salo Shankar MD electronically signed on 01/19/2023 1:12:41 PM with status of Final
[2023-01-19 07:13] LABS: Glucose, Whole Blood 126 mg/dL (60-115)
[2023-01-19 07:31] VITALS: BP 141/73; PULSE 69; RESP 20; TEMP 36.3; O2SAT 98
[2023-01-19 07:40] LABS: Alanine Aminotransferase 41 U/L (0-40); Albumin Level 3.1 g/dL (3.5-5.0); Alkaline Phosphatase 86 U/L (39-117); Anion Gap 10 (12-20); Aspartate Amino Transferase 57 U/L (5-37); Bilirubin Total 0.7 mg/dL (0.0-1.0); Blood Urea Nitrogen 12 mg/dL (9-16); Carbon Dioxide 27 mmol/L (22-29); Chloride 108 mmol/L (96-108); Creatinine Clr Calc Pharmacy 116.1; Estimated Glomerular Filt Rate > 60; Glucose Random 140 mg/dL (60-115); Potassium 3.8 mmol/L (3.3-5.1); Sodium 141 mmol/L (135-145); Total Protein 6.2 g/dL (6.5-8.0)
[2023-01-19 08:01] LABS: ~HepC Num1 0.08 S/CO (0.00-0.79); ~Hepatitis C Antibody Nonreactive (Nonreactive)
[2023-01-19 08:02] LABS: HIV AB/AG Nonreactive (Nonreactive); HIV Num 1 0.04 S/CO (0.00-0.99)
[2023-01-19 08:06] LABS: C Reactive Protein 1.44 mg/dL (< or = 0.50); Magnesium 1.7 mg/dL (1.6-2.6)
[2023-01-19 08:28] LABS: Procalcitonin 0.03 ng/mL
[2023-01-19] MEDS: Spironolactone 25 MG TABLET PO (08:33)
[2023-01-19] MEDS: Furosemide 20 MG TABLET PO (08:33)
[2023-01-19] MEDS: Losartan Potassium 50 MG TABLET 100 MG PO (08:33)
[2023-01-19] MEDS: Aspirin Enteric Coated 81 MG TABLET.DR PO (08:34)
[2023-01-19] MEDS: Enoxaparin Sodium 40 MG/0.4 ML SYRINGE SUBCUT (08:34)
[2023-01-19 10:59] LABS: Glucose, Whole Blood 266 mg/dL (60-115)
--- NOTE | 2023-01-19 10:59 | P.PNIM_ITS ---
Subjective Subjective Date of Service: 01/19/23 Interval History: more awake afebrile no chest pain no dyspnea Review of Systems Review of Systems: Yes all other systems are reviewed and are negative Physical Exam 2 Vital Signs: Vital Signs: Last Vital Signs Temp 97.3 F 01/19/23 07:31 Pulse 69 01/19/23 07:31 Resp 20 01/19/23 07:31 BP 141/73 H 01/19/23 07:31 Pulse Ox 98 01/19/23 07:31 O2 Del Method Room Air 01/19/23 07:31 BMI result Body Mass Index 34.2 Gen: in no acute distress HEENT: sclera anicteric, moist mucus membranes Neck: supple Lungs: clear to auscultation bilaterally Heart: regular rate and rhythm, no murmurs Abd: soft, non-tender, non-distended Ext: no edema Skin: warm/well-perfused Neuro: alert and oriented x3, no focal findings Psych: appropriate affect Objective Data Active Medications Acetaminophen (Acetaminophen 325 Mg Tablet) 650 mg PO Q6H PRN PRN Reason: Pain, Mild (Pain Scale 1-3) Last Admin: 01/18/23 18:41 Dose: 650 mg Documented By: KALI Aspirin (Aspirin Enteric Coated 81 Mg Tablet.Dr) 81 mg PO DAILY [facility] Last Admin: 01/19/23 08:34 Dose: 81 mg Documented By: VISH Atorvastatin Calcium (Atorvastatin Calcium 40 Mg Tablet) 40 mg PO BEDTIME [facility] Last Admin: 01/18/23 20:30 Dose: 40 mg Documented By: GLENROY Buprenorphine/Naloxone (Buprenorphine/Naloxone 8/2 Mg Film) 2 film SUBLINGUAL ONCE ONE Stop: 01/19/23 10:57 Dextrose (Dextrose 50 % 25 Gm/50 Ml Syringe) 25 gm IVPUSH Q15M PRN; Protocol PRN Reason: per Hypoglycemia Standing Ord. Docusate Sodium (Docusate Sodium 100 Mg Capsule) 100 mg PO DAILY PRN PRN Reason: Constipation Docusate Sodium (Docusate Sodium 100 Mg Capsule) 100 - 200 mg PO BEDTIME PRN PRN Reason: constipation Enoxaparin Sodium (Enoxaparin Sodium 40 Mg/0.4 Ml Syringe) 40 mg SUBCUT Q24H [facility] Last Admin: 01/19/23 08:34 Dose: 40 mg Documented By: VSIH Furosemide (Furosemide 20 Mg Tablet) 20 mg PO DAILY [facility]; Protocol Last Admin: 01/19/23 08:33 Dose: 20 mg Documented By: VISH Glucose (Glucose Gel 15 Gm Gel..Gram.) 15 gm PO Q15M PRN; Protocol PRN Reason: per Hypoglycemia Standing Ord. Lactated Ringer's (Lr) 1,000 mls @ 150 mls/hr IVCONT .Q6H40M [facility] Last Admin: 01/19/23 10:29 Dose: 150 mls/hr Documented By: VISH Piperacillin Sod/Tazobactam (Sod 3.375 gm/ Sodium Chloride) 50 mls @ 100 mls/hr IV Q6H [facility] Last Infusion: 01/19/23 06:28 Dose: Infused Documented By: FRANDY Vancomycin HCl 1,250 mg/ (Sodium Chloride) 250 mls @ 166.667 mls/hr IV Q12H [facility] Last Infusion: 01/19/23 02:13 Dose: Infused Documented By: FRANDY Insulin Human Lispro (Insulin Lispro 100 Unit/Ml 3 Ml Vial) 0 unit SUBCUT QIDACHS [facility]; Protocol Last Admin: 01/19/23 08:19 Dose: Not Given Documented By: VISH Non-Admin Reason: No Insulin Coverage Losartan Potassium (Losartan Potassium 50 Mg Tablet) 100 mg PO DAILY [facility]; Protocol Last Admin: 01/19/23 08:33 Dose: 100 mg Documented By: VISH Melatonin (Melatonin 3 Mg Tablet) 6 mg PO BEDTIME PRN PRN Reason: Insomnia Last Admin: 01/18/23 21:03 Dose: 6 mg Documented By: GLENROY Ondansetron HCl (Ondansetron Hcl 4 Mg/2 Ml Vial) 4 mg IVPUSH Q8H PRN PRN Reason: Nausea and Vomiting Pharmacy Consult (Consult Rx Vancomycin Dosing) 1 each MISCELLANE DAILY PRN PRN Reason: Consult order Sodium Chloride (0.9 % Sodium Chloride Flush 3 Ml Syringe) 3 ml IVFLUSH QSHIFT [facility] Last Admin: 01/19/23 08:34 Dose: Not Given Documented By: VISH Non-Admin Reason: IV Running Spironolactone (Spironolactone 25 Mg Tablet) 25 mg PO DAILY [facility]; Protocol Last Admin: 01/19/23 08:33 Dose: 25 mg Documented By: VISH Labs 01/18/23 07:04 01/19/23 06:39 Labs: Laboratory Results - last 24 hr 01/18/23 01/18/23 01/18/23 07:04 12:20 15:41 Anion Gap Estim Creat Clear Calc Estimated GFR POC Glucose 155 H 142 H Random Glucose Estimat Average Glucose 166 Hemoglobin A1c % 7.4 H Calcium Magnesium Total Bilirubin AST ALT Alkaline Phosphatase C-Reactive Protein Total Protein Albumin Procalcitonin Hepatitis C Ab (EIA) HIV 1&2 Ab/P24 Ag 4thGn 01/18/23 01/19/23 01/19/23 20:05 06:39 07:09 Anion Gap 10 L Estim Creat Clear Calc 116.1 Estimated GFR > 60 POC Glucose 188 H 126 H Random Glucose 140 H Estimat Average Glucose Hemoglobin A1c % Calcium 9.0 Magnesium 1.7 Total Bilirubin 0.7 AST 57 H ALT 41 H Alkaline Phosphatase 86 C-Reactive Protein 1.44 H Total Protein 6.2 L Albumin 3.1 L Procalcitonin 0.03 Hepatitis C Ab (EIA) Nonreactive HIV 1&2 Ab/P24 Ag 4thGn Nonreactive Microbiology Microbiology Results: Microbiology 01/17/23 17:02 Blood Culture - Preliminary Blood - Venous No growth after 24 hours. 01/17/23 17:02 Blood Culture - Preliminary Blood - Venous No growth after 24 hours. 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 [recommended outpt cardiac MRI] presenting with fever, obtundation responsive to naloxone admitted for sepsis sepsis in injection drug user - follow BCx, continue vanc + pip-[place] d2 - TTE pending toxic encephalopathy - likely due to IV drug abuse, resolved - repeat CT head showed prior findings were artefactual transaminasemia - likely due to sepsis; HCV negative, HIV negative; pt has isolated +HBc polysubstance abuse - Addiction Medicine consultation; starting Suboxone CAD cardiomyopathy - ASA, atorvastatin, losartan, furosemide, spironolactone - hold b-laura for now given cocaine abuse - will need outpt Cardiology f/u VTE ppx - LMWH dispo - TBD In my clinical judgment, the patient requires continued hospitalization for the following reasons: IV ABX Time Spent With Patient Time: Total time managing care of this patient today _35___ minutes. Quality Stroke Does the patient have a stroke diagnosis?: No VTE Prior VTE?: No VTE Risk Level:: Medical - moderate - high VTE Device Contraindication: Treatment Not Indicated VTE Drug Contraindication: N/A - Med Ordered
--- NOTE | 2023-01-19 11:04 | P.PNADD_ITS ---
Subjective Subjective Date of Service: 01/19/23 Reason For Visit: Febrile Interim History: Patient seen in follow up Awake, alert oriented and able to paticipate in interview Reporting withdrawal sx--body aches, restlessness He states last opiate use was on Wednesday when he used 2 bags IN He would like to begin suboxone now Review of Systems Constitutional: Reports as per HPI Diagnostics Vital Signs (24Hr): Vital Signs - 24 hr 01/18/23 12:00 01/18/23 15:31 01/18/23 19:32 Temperature 99.1 F 98.2 F 98.3 F Pulse Rate 83 67 79 Respiratory Rate 20 18 18 Blood Pressure 155/70 H 142/65 H 169/72 H Pulse Oximetry 98 99 98 Oxygen Delivery Method Room Air Room Air Room Air 01/19/23 00:00 01/19/23 03:30 01/19/23 07:31 Temperature 97.8 F 97.7 F 97.3 F Pulse Rate 63 73 69 Respiratory Rate 15 16 20 Blood Pressure 145/64 H 164/86 H 141/73 H Pulse Oximetry 99 98 98 Oxygen Delivery Method Room Air Room Air Room Air BMI result Body Mass Index 34.2 Labs 01/20/23 05:55 01/20/23 05:55 Labs: Laboratory Results - last 48 hr 01/17/23 01/17/23 01/17/23 16:33 17:02 17:24 WBC 10.1 RBC 4.08 L Hgb 12.2 L Hct 37.1 L MCV 90.9 MCH 29.9 MCHC 32.9 RDW 14.2 Plt Count 229 MPV 10.7 Immature Gran % (Auto) 0.8 H Neut % (Auto) 69.6 Lymph % (Auto) 21.0 [place] % (Auto) 6.7 Eos % (Auto) 1.7 Baso % (Auto) 0.2 Lymph # (Auto) 2.1 [place] # (Auto) 0.7 Eos # (Auto) 0.2 Baso # (Auto) 0.0 Abs Immat Gran (auto) 0.08 H Absolute Neuts (auto) 7.0 Absolute Nucleated RBC 0.000 Nucleated RBC % (auto) 0.0 O2 Saturation ABG pH at Pt Temp ABG pCO2 at Pt Temp ABG pO2 at Pt Temp ABG HCO3 ABG Base Excess (Actual) VBG pH VBG pCO2 VBG pO2 VBG HCO3 VBG O2 Saturation VBG Base Excess Sodium 143 Potassium 3.7 Chloride 108 Carbon Dioxide 26 Anion Gap 13 BUN 16 Creatinine 0.91 Estim Creat Clear Calc 113.6 Estimated GFR > 60 POC Glucose 168 H Random Glucose 130 H Estimat Average Glucose Hemoglobin A1c % Lactic Acid 3.4 H* Lactic Acid F/U @ 2Hr Calcium 10.0 Magnesium Total Bilirubin 0.4 Direct Bilirubin 0.2 AST 97 H ALT 60 H Alkaline Phosphatase 195 H Ammonia 40 Troponin I High Sens 41.5 H C-Reactive Protein Total Protein 7.1 Albumin 3.6 Lipase 297 H Procalcitonin Urine Color Urine Appearance Urine pH Ur Specific [place] Urine Protein Urine Glucose (UA) Urine Ketones Urine Blood Urine Nitrite Ur Leukocyte Esterase Urine RBC Urine WBC Ur Squamous Epith Cells Urine Bacteria Hyaline Casts Urine Opiates Screen Urine Fentanyl Screen Ur Barbiturates Screen Ur Phencyclidine Scrn Ur Amphetamines Screen U Benzodiazepines Scrn Urine Cocaine Screen U Marijuana (THC) Screen Ethyl Alcohol < 10 Hepatitis C Ab (EIA) HIV 1&2 Ab/P24 Ag 4thGn Influenza Type A (PCR) NEGATIVE Influenza Type B (PCR) NEGATIVE RSV RNA Qual (PCR) NEGATIVE SARS-CoV-2 RNA (RT-PCR) NEGATIVE 01/17/23 01/17/23 01/17/23 18:24 19:40 21:53 WBC RBC Hgb Hct MCV MCH MCHC RDW Plt Count MPV Immature Gran % (Auto) Neut % (Auto) Lymph % (Auto) [place] % (Auto) Eos % (Auto) Baso % (Auto) Lymph # (Auto) [place] # (Auto) Eos # (Auto) Baso # (Auto) Abs Immat Gran (auto) Absolute Neuts (auto) Absolute Nucleated RBC Nucleated RBC % (auto) O2 Saturation ABG pH at Pt Temp ABG pCO2 at Pt Temp ABG pO2 at Pt Temp ABG HCO3 ABG Base Excess (Actual) VBG pH 7.53 H VBG pCO2 36 VBG pO2 178 VBG HCO3 30 H VBG O2 Saturation 100.0 VBG Base Excess 7.5 Sodium Potassium Chloride Carbon Dioxide Anion Gap BUN Creatinine Estim Creat Clear Calc Estimated GFR POC Glucose Random Glucose Estimat Average Glucose Hemoglobin A1c % Lactic Acid Lactic Acid F/U @ 2Hr 1.8 Calcium Magnesium Total Bilirubin Direct Bilirubin AST ALT Alkaline Phosphatase Ammonia Troponin I High Sens 64.1 H D C-Reactive Protein Total Protein Albumin Lipase Procalcitonin Urine Color Yellow Urine Appearance Clear Urine pH 7.5 Ur Specific [place] 1.010 Urine Protein Negative Urine Glucose (UA) Negative Urine Ketones Negative Urine Blood Small (1+) H Urine Nitrite Negative Ur Leukocyte Esterase Trace H Urine RBC 0-2 Urine WBC 0-5 Ur Squamous Epith Cells 0-2 Urine Bacteria Trace Hyaline Casts 0-2 Urine Opiates Screen Not Detected Urine Fentanyl Screen POSITIVE H Ur Barbiturates Screen Not Detected Ur Phencyclidine Scrn Not Detected Ur Amphetamines Screen Not Detected U Benzodiazepines Scrn Not Detected Urine Cocaine Screen POSITIVE H U Marijuana (THC) Screen Not Detected Ethyl Alcohol Hepatitis C Ab (EIA) HIV 1&2 Ab/P24 Ag 4thGn Influenza Type A (PCR) Influenza Type B (PCR) RSV RNA Qual (PCR) SARS-CoV-2 RNA (RT-PCR) 01/17/23 01/18/23 01/18/23 23:34 07:04 12:20 WBC 12.4 H RBC 4.01 L Hgb 11.9 L Hct 35.8 L MCV 89.3 MCH 29.7 MCHC 33.2 RDW 14.2 Plt Count 220 MPV 10.7 Immature Gran % (Auto) 0.4 Neut % (Auto) 61.1 Lymph % (Auto) 30.3 [place] % (Auto) 6.5 Eos % (Auto) 1.5 Baso % (Auto) 0.2 Lymph # (Auto) 3.8 [place] # (Auto) 0.8 Eos # (Auto) 0.2 Baso # (Auto) 0.0 Abs Immat Gran (auto) 0.05 H Absolute Neuts (auto) 7.6 Absolute Nucleated RBC 0.000 Nucleated RBC % (auto) 0.0 O2 Saturation 98.0 ABG pH at Pt Temp 7.52 H ABG pCO2 at Pt Temp 37 ABG pO2 at Pt Temp 80 L ABG HCO3 30 H ABG Base Excess (Actual) 7.8 VBG pH VBG pCO2 VBG pO2 VBG HCO3 VBG O2 Saturation VBG Base Excess Sodium 143 Potassium 3.5 Chloride 109 H Carbon Dioxide 27 Anion Gap 11 L BUN 9 Creatinine 0.83 Estim Creat Clear Calc 124.5 Estimated GFR > 60 POC Glucose 155 H Random Glucose 87 Estimat Average Glucose 166 Hemoglobin A1c % 7.4 H Lactic Acid Lactic Acid F/U @ 2Hr Calcium 9.4 Magnesium Total Bilirubin Direct Bilirubin AST ALT Alkaline Phosphatase Ammonia Troponin I High Sens C-Reactive Protein Total Protein Albumin Lipase Procalcitonin Urine Color Urine Appearance Urine pH Ur Specific [place] Urine Protein Urine Glucose (UA) Urine Ketones Urine Blood Urine Nitrite Ur Leukocyte Esterase Urine RBC Urine WBC Ur Squamous Epith Cells Urine Bacteria Hyaline Casts Urine Opiates Screen Urine Fentanyl Screen Ur Barbiturates Screen Ur Phencyclidine Scrn Ur Amphetamines Screen U Benzodiazepines Scrn Urine Cocaine Screen U Marijuana (THC) Screen Ethyl Alcohol Hepatitis C Ab (EIA) HIV 1&2 Ab/P24 Ag 4thGn Influenza Type A (PCR) Influenza Type B (PCR) RSV RNA Qual (PCR) SARS-CoV-2 RNA (RT-PCR) 01/18/23 01/18/23 01/19/23 15:41 20:05 06:39 WBC RBC Hgb Hct MCV MCH MCHC RDW Plt Count MPV Immature Gran % (Auto) Neut % (Auto) Lymph % (Auto) [place] % (Auto) Eos % (Auto) Baso % (Auto) Lymph # (Auto) [place] # (Auto) Eos # (Auto) Baso # (Auto) Abs Immat Gran (auto) Absolute Neuts (auto) Absolute Nucleated RBC Nucleated RBC % (auto) O2 Saturation ABG pH at Pt Temp ABG pCO2 at Pt Temp ABG pO2 at Pt Temp ABG HCO3 ABG Base Excess (Actual) VBG pH VBG pCO2 VBG pO2 VBG HCO3 VBG O2 Saturation VBG Base Excess Sodium 141 Potassium 3.8 Chloride 108 Carbon Dioxide 27 Anion Gap 10 L BUN 12 Creatinine 0.89 Estim Creat Clear Calc 116.1 Estimated GFR > 60 POC Glucose 142 H 188 H Random Glucose 140 H Estimat Average Glucose Hemoglobin A1c % Lactic Acid Lactic Acid F/U @ 2Hr Calcium 9.0 Magnesium 1.7 Total Bilirubin 0.7 Direct Bilirubin AST 57 H ALT 41 H Alkaline Phosphatase 86 Ammonia Troponin I High Sens C-Reactive Protein 1.44 H Total Protein 6.2 L Albumin 3.1 L Lipase Procalcitonin 0.03 Urine Color Urine Appearance Urine pH Ur Specific [place] Urine Protein Urine Glucose (UA) Urine Ketones Urine Blood Urine Nitrite Ur Leukocyte Esterase Urine RBC Urine WBC Ur Squamous Epith Cells Urine Bacteria Hyaline Casts Urine Opiates Screen Urine Fentanyl Screen Ur Barbiturates Screen Ur Phencyclidine Scrn Ur Amphetamines Screen U Benzodiazepines Scrn Urine Cocaine Screen U Marijuana (THC) Screen Ethyl Alcohol Hepatitis C Ab (EIA) Nonreactive HIV 1&2 Ab/P24 Ag 4thGn Nonreactive Influenza Type A (PCR) Influenza Type B (PCR) RSV RNA Qual (PCR) SARS-CoV-2 RNA (RT-PCR) 01/19/23 01/19/23 07:09 10:55 WBC RBC Hgb Hct MCV MCH MCHC RDW Plt Count MPV Immature Gran % (Auto) Neut % (Auto) Lymph % (Auto) [place] % (Auto) Eos % (Auto) Baso % (Auto) Lymph # (Auto) [place] # (Auto) Eos # (Auto) Baso # (Auto) Abs Immat Gran (auto) Absolute Neuts (auto) Absolute Nucleated RBC Nucleated RBC % (auto) O2 Saturation ABG pH at Pt Temp ABG pCO2 at Pt Temp ABG pO2 at Pt Temp ABG HCO3 ABG Base Excess (Actual) VBG pH VBG pCO2 VBG pO2 VBG HCO3 VBG O2 Saturation VBG Base Excess Sodium Potassium Chloride Carbon Dioxide Anion Gap BUN Creatinine Estim Creat Clear Calc Estimated GFR POC Glucose 126 H 266 H Random Glucose Estimat Average Glucose Hemoglobin A1c % Lactic Acid Lactic Acid F/U @ 2Hr Calcium Magnesium Total Bilirubin Direct Bilirubin AST ALT Alkaline Phosphatase Ammonia Troponin I High Sens C-Reactive Protein Total Protein Albumin Lipase Procalcitonin Urine Color Urine Appearance Urine pH Ur Specific [place] Urine Protein Urine Glucose (UA) Urine Ketones Urine Blood Urine Nitrite Ur Leukocyte Esterase Urine RBC Urine WBC Ur Squamous Epith Cells Urine Bacteria Hyaline Casts Urine Opiates Screen Urine Fentanyl Screen Ur Barbiturates Screen Ur Phencyclidine Scrn Ur Amphetamines Screen U Benzodiazepines Scrn Urine Cocaine Screen U Marijuana (THC) Screen Ethyl Alcohol Hepatitis C Ab (EIA) HIV 1&2 Ab/P24 Ag 4thGn Influenza Type A (PCR) Influenza Type B (PCR) RSV RNA Qual (PCR) SARS-CoV-2 RNA (RT-PCR) Imaging Radiology Impressions: ITS Impressions Head CT 01/17/23 20:22 IMPRESSION: Possible hypoattenuation of the left temporal lobe. This may be artifactual and related to beam hardening as well as technical degradation. Advise clinical correlation and possible repeat imaging may be indicated. Abdomen/Pelvis CT 01/17/23 20:25 IMPRESSION: Technically difficult study. No acute abnormality in the chest, abdomen or pelvis. Chest CT 01/17/23 20:25 IMPRESSION: Technically difficult study. No acute abnormality in the chest, abdomen or pelvis. Head CT 01/18/23 15:28 IMPRESSION: No acute intracranial pathology. Previously questioned low-attenuation in the left temporal lobe longer seen and was probably artifactual. Medications Medications Current Medications Acetaminophen (Acetaminophen 325 Mg Tablet) 650 mg PO Q6H PRN PRN Reason: Pain, Mild (Pain Scale 1-3) Last Admin: 01/18/23 18:41 Dose: 650 mg Aspirin (Aspirin Enteric Coated 81 Mg Tablet.Dr) 81 mg PO DAILY [facility] Last Admin: 01/19/23 08:34 Dose: 81 mg Atorvastatin Calcium (Atorvastatin Calcium 40 Mg Tablet) 40 mg PO BEDTIME [facility] Last Admin: 01/18/23 20:30 Dose: 40 mg Dextrose (Dextrose 50 % 25 Gm/50 Ml Syringe) 25 gm IVPUSH Q15M PRN; Protocol PRN Reason: per Hypoglycemia Standing Ord. Docusate Sodium (Docusate Sodium 100 Mg Capsule) 100 mg PO DAILY PRN PRN Reason: Constipation Docusate Sodium (Docusate Sodium 100 Mg Capsule) 100 - 200 mg PO BEDTIME PRN PRN Reason: constipation Enoxaparin Sodium (Enoxaparin Sodium 40 Mg/0.4 Ml Syringe) 40 mg SUBCUT Q24H [facility] Last Admin: 01/19/23 08:34 Dose: 40 mg Furosemide (Furosemide 20 Mg Tablet) 20 mg PO DAILY [facility]; Protocol Last Admin: 01/19/23 08:33 Dose: 20 mg Glucose (Glucose Gel 15 Gm Gel..Gram.) 15 gm PO Q15M PRN; Protocol PRN Reason: per Hypoglycemia Standing Ord. Lactated Ringer's (Lr) 1,000 mls @ 150 mls/hr IVCONT .Q6H40M [facility] Last Admin: 01/19/23 10:29 Dose: 150 mls/hr Piperacillin Sod/Tazobactam (Sod 3.375 gm/ Sodium Chloride) 50 mls @ 100 mls/hr IV Q6H [facility] Last Infusion: 01/19/23 06:28 Dose: Infused Vancomycin HCl 1,250 mg/ (Sodium Chloride) 250 mls @ 166.667 mls/hr IV Q12H [facility] Last Infusion: 01/19/23 02:13 Dose: Infused Insulin Human Lispro (Insulin Lispro 100 Unit/Ml 3 Ml Vial) 0 unit SUBCUT QIDACHS JAMIE; Protocol Last Admin: 01/19/23 08:19 Dose: Not Given Losartan Potassium (Losartan Potassium 50 Mg Tablet) 100 mg PO DAILY [facility]; Protocol Last Admin: 01/19/23 08:33 Dose: 100 mg Melatonin (Melatonin 3 Mg Tablet) 6 mg PO BEDTIME PRN PRN Reason: Insomnia Last Admin: 01/18/23 21:03 Dose: 6 mg Ondansetron HCl (Ondansetron Hcl 4 Mg/2 Ml Vial) 4 mg IVPUSH Q8H PRN PRN Reason: Nausea and Vomiting Pharmacy Consult (Consult Rx Vancomycin Dosing) 1 each MISCELLANE DAILY PRN PRN Reason: Consult order Sodium Chloride (0.9 % Sodium Chloride Flush 3 Ml Syringe) 3 ml IVFLUSH QSHIFT [facility] Last Admin: 01/19/23 08:34 Dose: Not Given Spironolactone (Spironolactone 25 Mg Tablet) 25 mg PO DAILY [facility]; Protocol Last Admin: 01/19/23 08:33 Dose: 25 mg Allergies Allergies Allergy/AdvReac Type Severity Reaction Status Date / Time Penicillins [PCN] Allergy Intermediate HIVES Verified 01/18/23 07:24 Assessment & Plan Assessment & Plan (1) Opioid use disorder: Status: Acute Code(s): F11.90 - Opioid use, unspecified, uncomplicated Assessment and Plan: * Suboxone 16 mg administered with positive affect * Additional 4 mg for the evening * Patient will follow-up with [facility] at time of discharge. This marketing writer will provide bridge script. Total time managing care of this patient today ____35 minutes.
[2023-01-19 11:09] VITALS: BP 163/76; PULSE 77; RESP 20; TEMP 37.7; O2SAT 100
[2023-01-19 11:28] LABS: Vancomycin Random 13.5 mcg/mL (15-20)
[2023-01-19] MEDS: Acetaminophen 325 MG TABLET 650 MG PO (12:10)
[2023-01-19] MEDS: Buprenorphine/Naloxone 8/2 mg FILM 2 FILM SUBLINGUAL (12:10)
[2023-01-19] MEDS: Insulin Lispro 100 UNIT/ML 3 ML VIAL SUBCUT ×3 (12:11→22:03)
[2023-01-19 15:28] VITALS: BP 126/65; PULSE 77; RESP 18; TEMP 36.4; O2SAT 96
[2023-01-19 16:27] LABS: Glucose, Whole Blood 236 mg/dL (60-115)
[2023-01-19] MEDS: Docusate Sodium 100 MG CAPSULE PO (17:32)
[2023-01-19] MEDS: Buprenorphine/Naloxone 4/1 mg FILM 1 FILM SUBLINGUAL (17:33)
[2023-01-19 19:15] VITALS: BP 137/67; PULSE 67; RESP 18; TEMP 36.6; O2SAT 99
[2023-01-19 19:55] LABS: Glucose, Whole Blood 290 mg/dL (60-115)
[2023-01-19] MEDS: Atorvastatin Calcium 40 MG TABLET PO (22:04)
[2023-01-19] MEDS: 0.9 % Sodium Chloride Flush 3 ML SYRINGE IVFLUSH (22:06)
[2023-01-20] VITALS: BP 142/63; PULSE 68; RESP 14; TEMP 36.2; O2SAT 100
[2023-01-20] MEDS: Lactated Ringers 1,000 ML 150 ML IVCONT (00:59)
[2023-01-20] MEDS: vancomycin HCL 1,250 MG in 0.9 % Sodium Chloride 250 ML 166.67 MG IV ×2 (01:06→13:06)
[2023-01-20 04:00] VITALS: BP 116/56; PULSE 82; RESP 15; TEMP 36.1; O2SAT 98
[2023-01-20] MEDS: Piperacillin Sodium/Tazobactam 3.375 GM in 0.9 % Sodium Chloride 50 ML IV ×2 (05:38→11:54)
[2023-01-20 06:03] LABS: Hematocrit 34.2 % (42.0-52.0); Hemoglobin 11.4 g/dl (14.0-18.0); Mean Corpuscular HGB Conc 33.3 g/dl (31.0-36.0); Mean Corpuscular Hemoglobin 30.2 pg (27.0-33.0); Mean Corpuscular Volume 90.7 fL (80.0-98.0); Platelet Count 197 X10*3/uL (160-400); Red Blood Count 3.77 X10*6/uL (4.60-5.80); Red Cell Distribution Width 14.7 % (11.0-16.0); White Blood Count 9.3 X10*3/uL (4.8-10.8)
[2023-01-20 06:17] LABS: Alanine Aminotransferase 31 U/L (0-40); Alkaline Phosphatase 105 U/L (39-117); Anion Gap 11 (12-20); Aspartate Amino Transferase 30 U/L (5-37); Bilirubin Total 0.3 mg/dL (0.0-1.0); Blood Urea Nitrogen 12 mg/dL (9-16); Calcium 8.4 mg/dL (8.4-10.2); Carbon Dioxide 25 mmol/L (22-29); Chloride 108 mmol/L (96-108); Creatinine Clr Calc Pharmacy 104.4; Estimated Glomerular Filt Rate > 60; Glucose Random 197 mg/dL (60-115); Potassium 3.6 mmol/L (3.3-5.1); Sodium 140 mmol/L (135-145); Total Protein 5.6 g/dL (6.5-8.0)
[2023-01-20 07:23] LABS: Glucose, Whole Blood 164 mg/dL (60-115)
[2023-01-20 07:52] VITALS: BP 129/77; PULSE 70; RESP 18; TEMP 36.6; O2SAT 98
[2023-01-20] MEDS: Insulin Lispro 100 UNIT/ML 3 ML VIAL SUBCUT ×2 (08:35→12:40)
[2023-01-20] MEDS: 0.9 % Sodium Chloride Flush 3 ML SYRINGE IVFLUSH (08:35)
[2023-01-20] MEDS: Furosemide 20 MG TABLET PO (08:39)
[2023-01-20] MEDS: Spironolactone 25 MG TABLET PO (08:39)
[2023-01-20] MEDS: Buprenorphine/Naloxone 8/2 mg FILM 1 FILM SUBLINGUAL (08:39)
[2023-01-20] MEDS: Aspirin Enteric Coated 81 MG TABLET.DR PO (08:39)
[2023-01-20] MEDS: Enoxaparin Sodium 40 MG/0.4 ML SYRINGE SUBCUT (08:40)
[2023-01-20] MEDS: Losartan Potassium 50 MG TABLET 100 MG PO (08:40)
[2023-01-20] MEDS: Docusate Sodium 100 MG CAPSULE PO (08:44)
[2023-01-20 11:31] VITALS: BP 120/66; PULSE 61; RESP 18; TEMP 36.6; O2SAT 98
[2023-01-20 11:34] LABS: Vancomycin Random 15.8 mcg/mL (15-20)
[2023-01-20 11:39] LABS: Glucose, Whole Blood 348 mg/dL (60-115)
--- NOTE | 2023-01-20 14:04 | PM.DS ---
DS: Providers Provider Date of Service: 01/20/23 Date of admission: 01/18/23 00:03 Date of discharge: 01/20/23 Primary care physician: Frankie Boone MD Consults: 01/18/23 00:02 Addiction Medicine Routine Consulting Provider: Addiction Covering Reason for consultation: cocaine, ivdu Has provider been notified: No DS: Diagnosis Discharge Diagnosis (1) Chest pain: (2) Opioid use disorder: Status: Acute (3) Sepsis: Status: Acute (4) Substance abuse: Status: Acute (5) Toxic encephalopathy: Status: Acute (6) Cocaine abuse: Status: Acute (7) NICM (nonischemic cardiomyopathy): Status: Acute (8) Chronic HFrEF (heart failure with reduced ejection fraction): Status: Acute DS: Summary Hospital Course Hospital Course: from admission H+P by hospitalist Shabbir Esquivel, 01/18/23: 57-year-old male with past medical history of IV drug use comes into the ED with complaints of fever at home. Patient is obtunded, arousable to painful stimuli wakes up of fall back asleep. Pinpoint pupils, given Narcan, slightly woke up and went back to sleep. His vitals are otherwise stable, no respiratory distress, no CO2 retention. According to the ED physician patient come in with complaints of fever, per nursing triage note patient was brought in via EMS with complaints of chest pain, the person that called EMS was concerned about his mentation, patient was found naked impeding a bucket, noted to have a history of MS about 4 months ago, patient was also noted by EMS to be encephalopathic. patient his vitals in the ED were found to have a fever 100.7, heart rate of 108, respiratory rate of 38, satting 99% on room air. His lactic acid was found to be 3.4 improved after IVF, he has elevated AST of 97, ALT of 60, lipase of 297, WBC count of 10.1, pH of 7.52 with a CO2 of 37. 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 [for which the credit control administrator recommended outpt cardiac MRI] presenting with fever, obtundation responsive to naloxone [place] [facility] [place] hospital course by problem: sepsis in injection drug user - treated empirically with vancomycin + Zosyn - blood cultures negative - TTE negative for vegetations - ultimately, likely skin source with spontaneously drained abscess on lower abdominal wall - discharged on levofloxacin and doxycycline for 7 days toxic encephalopathy - likely due to IV drug abuse - resolved - repeat CT head showed initial hypoattenuation findings were artifactual transaminasemia - likely due to sepsis; HCV negative, HIV negative; pt has isolated +HBc; transaminases normalized polysubstance abuse - Addiction Medicine consultated; started Suboxone and pt will follow up at [facility] CRS CAD cardiomyopathy - treated with ASA, atorvastatin, losartan, furosemide, spironolactone - no beta-laura for now given cocaine abuse - will need outpt Cardiology follow-up as recommended previously by [facility] after his last hospitalizations - pt was counseled extensively on the cardiac and other risks of cocaine and other substance abuse Time Spent with Patient Time attestation: Total time managing care of this patient today ___35_ minutes. Discharge coordination time: Greater than 30 minutes Quality: Safe Use of Opioids Does Pt have an Active Cancer Diagnosis on the Problem List?: No Quality: Stroke Does the patient have a stroke diagnosis?: No Physical Exam Vital Signs: Vital Signs: Last Vital Signs Temp 97.9 F 01/20/23 11:31 Pulse 61 01/20/23 11:31 Resp 18 01/20/23 11:31 BP 120/66 01/20/23 11:31 Pulse Ox 98 01/20/23 11:31 O2 Del Method Room Air 01/20/23 11:31 BMI result Body Mass Index 34.2 Gen: in no acute distress HEENT: sclera anicteric, moist mucus membranes Neck: supple Lungs: clear to auscultation bilaterally Heart: regular rate and rhythm, no murmurs Abd: soft, non-tender, non-distended, obese Ext: no edema Skin: scabbed drained abscess or other fluid collection lower abdomen; no residual erythema or fluctuance Neuro: alert and oriented x3, no focal findings Psych: appropriate affect DS: Data Data Completed and Pending Completed studies during hospitalization [Text1]: Laboratory Results WBC 9.3 X10*3/uL (4.8-10.8) 01/20/23 05:55 RBC 3.77 X10*6/uL (4.60-5.80) L 01/20/23 05:55 Hgb 11.4 g/dl (14.0-18.0) L 01/20/23 05:55 Hct 34.2 % (42.0-52.0) L 01/20/23 05:55 MCV 90.7 fL (80.0-98.0) 01/20/23 05:55 MCH 30.2 pg (27.0-33.0) 01/20/23 05:55 MCHC 33.3 g/dl (31.0-36.0) 01/20/23 05:55 RDW 14.7 % (11.0-16.0) 01/20/23 05:55 Plt Count 197 X10*3/uL (160-400) 01/20/23 05:55 MPV 10.0 fL (9.4-12.4) 01/20/23 05:55 Immature Gran % (Auto) 0.4 % (0.0-0.4) 01/18/23 07:04 Neut % (Auto) 61.1 % (45-73) 01/18/23 07:04 Lymph % (Auto) 30.3 % (20-40) 01/18/23 07:04 Leon % (Auto) 6.5 % (2-11) 01/18/23 07:04 Eos % (Auto) 1.5 % (0-4) 01/18/23 07:04 Baso % (Auto) 0.2 % (0-2) 01/18/23 07:04 Lymph # (Auto) 3.8 X10*3/uL (1.2-4.9) 01/18/23 07:04 Leon # (Auto) 0.8 X10*3/uL (0.1-1.2) 01/18/23 07:04 Eos # (Auto) 0.2 X10*3/uL (0.0-0.4) 01/18/23 07:04 Baso # (Auto) 0.0 X10*3/uL (0.0-0.2) 01/18/23 07:04 Abs Immat Gran (auto) 0.05 X10*3/uL (0.00-0.03) H 01/18/23 07:04 Absolute Neuts (auto) 7.6 x10*3/uL (2.0-8.3) 01/18/23 07:04 Absolute Nucleated RBC 0.000 X10*3/uL (0.0-0.012) 01/20/23 05:55 Nucleated RBC % (auto) 0.0 /100WBC (0.0-0.2) 01/20/23 05:55 O2 Saturation 98.0 % 01/17/23 23:34 ABG pH at Pt Temp 7.52 (7.35-7.45) H 01/17/23 23:34 ABG pCO2 at Pt Temp 37 mmHg (32-45) 01/17/23 23:34 ABG pO2 at Pt Temp 80 mmHg (83-108) L 01/17/23 23:34 ABG HCO3 30 mmol/L (22-26) H 01/17/23 23:34 ABG Base Excess (Actual) 7.8 mmol/L 01/17/23 23:34 VBG pH 7.53 (7.32-7.43) H 01/17/23 18:24 VBG pCO2 36 mmHg 01/17/23 18:24 VBG pO2 178 mmHg 01/17/23 18:24 VBG HCO3 30 mmol/L (22-26) H 01/17/23 18:24 VBG O2 Saturation 100.0 % 01/17/23 18:24 VBG Base Excess 7.5 mmol/L 01/17/23 18:24 Sodium 140 mmol/L (135-145) 01/20/23 05:55 Potassium 3.6 mmol/L (3.3-5.1) 01/20/23 05:55 Chloride 108 mmol/L (96-108) 01/20/23 05:55 Carbon Dioxide 25 mmol/L (22-29) 01/20/23 05:55 Anion Gap 11 (12-20) L 01/20/23 05:55 BUN 12 mg/dL (9-16) 01/20/23 05:55 Creatinine 0.99 mg/dL (0.5-1.4) 01/20/23 05:55 Estim Creat Clear Calc 104.4 01/20/23 05:55 Estimated GFR > 60 01/20/23 05:55 POC Glucose 348 mg/dL (60-115) H 01/20/23 11:33 Random Glucose 197 mg/dL (60-115) H 01/20/23 05:55 Estimat Average Glucose 166 mg/dL 01/18/23 07:04 Hemoglobin A1c % 7.4 % (<6.0) H 01/18/23 07:04 Lactic Acid 3.4 mmol/L (0.5-2.0) H* 01/17/23 17:02 Lactic Acid F/U @ 2Hr 1.8 mmol/L (0.5-2.0) 01/17/23 21:53 Calcium 8.4 mg/dL (8.4-10.2) D 01/20/23 05:55 Magnesium 1.7 mg/dL (1.6-2.6) 01/19/23 06:39 Total Bilirubin 0.3 mg/dL (0.0-1.0) 01/20/23 05:55 Direct Bilirubin 0.2 mg/dL (0.0-0.5) 01/17/23 17:02 AST 30 U/L (5-37) 01/20/23 05:55 ALT 31 U/L (0-40) 01/20/23 05:55 Alkaline Phosphatase 105 U/L (39-117) 01/20/23 05:55 Ammonia 40 umol/L (13-55) 01/17/23 17:02 Troponin I High Sens 64.1 ng/L (<3.5-35.0) H D 01/17/23 21:53 C-Reactive Protein 1.44 mg/dL (< or = 0.50) H 01/19/23 06:39 Total Protein 5.6 g/dL (6.5-8.0) L 01/20/23 05:55 Albumin 3.0 g/dL (3.5-5.0) L 01/20/23 05:55 Lipase 297 U/L (8-78) H 01/17/23 17:02 Procalcitonin 0.03 ng/mL 01/19/23 06:39 Urine Color Yellow 01/17/23 19:40 Urine Appearance Clear 01/17/23 19:40 Urine pH 7.5 (5.0-9.0) 01/17/23 19:40 Ur Specific [place] 1.010 (1.005-1.025) 01/17/23 19:40 Urine Protein Negative mg/dL (Neg-Trace) 01/17/23 19:40 Urine Glucose (UA) Negative mg/dL (Negative) 01/17/23 19:40 Urine Ketones Negative mg/dL (Negative) 01/17/23 19:40 Urine Blood Small (1+) (Negative) H 01/17/23 19:40 Urine Nitrite Negative (Negative) 01/17/23 19:40 Ur Leukocyte Esterase Trace (Negative) H 01/17/23 19:40 Urine RBC 0-2 /HPF (0-2) 01/17/23 19:40 Urine WBC 0-5 /HPF (0-5) 01/17/23 19:40 Ur Squamous Epith Cells 0-2 /HPF (0-2) 01/17/23 19:40 Urine Bacteria Trace (None Seen) 01/17/23 19:40 Hyaline Casts 0-2 /LPF (0-2) 01/17/23 19:40 Random Vancomycin 15.8 mcg/mL (15-20) 01/20/23 11:12 Urine Opiates Screen Not Detected (Not Detect) 01/17/23 19:40 Urine Fentanyl Screen POSITIVE (Not Detect) H 01/17/23 19:40 Ur Barbiturates Screen Not Detected (Not Detect) 01/17/23 19:40 Ur Phencyclidine Scrn Not Detected (Not Detect) 01/17/23 19:40 Ur Amphetamines Screen Not Detected (Not Detect) 01/17/23 19:40 U Benzodiazepines Scrn Not Detected (Not Detect) 01/17/23 19:40 Urine Cocaine Screen POSITIVE (Not Detect) H 01/17/23 19:40 U Marijuana (THC) Screen Not Detected (Not Detect) 01/17/23 19:40 Ethyl Alcohol < 10 mg/dL 01/17/23 17:02 Hepatitis C Ab (EIA) Nonreactive (Nonreactive) 01/19/23 06:39 HIV 1&2 Ab/P24 Ag 4thGn Nonreactive (Nonreactive) 01/19/23 06:39 Influenza Type A (PCR) NEGATIVE (Negative) 01/17/23 17:24 Influenza Type B (PCR) NEGATIVE (Negative) 01/17/23 17:24 RSV RNA Qual (PCR) NEGATIVE (Negative) 01/17/23 17:24 SARS-CoV-2 RNA (RT-PCR) NEGATIVE (Negative) 01/17/23 17:24 Impressions Abdomen/Pelvis CT 01/17/23 20:25 IMPRESSION: Technically difficult study. No acute abnormality in the chest, abdomen or pelvis. Chest CT 01/17/23 20:25 IMPRESSION: Technically difficult study. No acute abnormality in the chest, abdomen or pelvis. Head CT 01/18/23 15:28 IMPRESSION: No acute intracranial pathology. Previously questioned low-attenuation in the left temporal lobe longer seen and was probably artifactual. TTE 01/19/23 - The left ventricular systolic function is severely decreased. The visually estimated ejection fraction is between 20-25%. - There is severe global hypokinesis. - The basal inferior segment is akinetic. - No obvious valvular pathology seen on this study. Discharge Plan Discharge Anticipated Discharge Date/Time: 01/20/23 13:56 Patient Disposition: Home, Self-Care Discharge Diagnosis: sepsis, probable skin source opioid and cocaine abuse toxic encephalopathy cardiomyopathy Referrals: [facility] Cardiovascular Services [Provider Group] - 1 Week Name,MD Frankie [Primary Care Provider] - 1 Week Discharge Medications: New buprenorphine-naloxone [Suboxone] 8-2 mg film 1 film sublingual BID Qty: 10 0RF losartan 50 mg Tablet 100 mg PO DAILY Qty: 30 0RF Protocol: Hold for SBP< HOLD for SBP < : 90 spironolactone 25 mg Tablet 25 mg PO DAILY Qty: 30 0RF Protocol: Hold for SBP< HOLD for SBP < : 90 doxycycline monohydrate 100 mg tablet 100 mg PO BID Qty: 14 0RF levofloxacin 750 mg tablet 750 mg PO DAILY Qty: 7 0RF Continued atorvastatin 40 mg tablet 40 mg PO BEDTIME chlorthalidone 25 mg tablet 25 mg PO DAILY aspirin 81 mg tablet,delayed release (DR/EC) 81 mg PO QAM metformin 1,000 mg tablet 1,000 mg PO BID docusate sodium 100 mg capsule 100 - 200 mg PO BEDTIME PRN (Reason: constipation) furosemide 20 mg tablet 20 mg PO DAILY insulin glargine [Lantus Solostar U-100 Insulin] 100 unit/mL (3 mL) insulin pen 30 unit subcut BID Discontinued lisinopril 20 mg tablet 20 mg PO QAM Discharge Orders: Discharge Order (Routine); Ordered 01/20/23 Ordered By: Trevon Vega Diet: Diabetic diet Activity on Discharge: As tolerated Stand Alone Forms: Patient Portal Discharge page Care Plan Goals: avoid drug use cardiac health Health Concerns: sepsis, probable skin source opioid and cocaine abuse toxic encephalopathy cardiomyopathy Plan of Treatment: take doxycycline monohydrate 100 mg twice daily PLUS levofloxacin 750 mg once daily for 7 days avoid substance abuse; use Suboxone as prescribed and follow up with [facility] this week take losartan, spironolactone, aspirin, atorvastatin, and furosemide; follow up with [facility] Cardiology in 1-2 weeks Please follow up with your primary care doctor within 1 week. Return to the hospital if you experience recurrent or worsening symptoms. Assessment: See Discharge Summary.
--- NOTE | 2023-01-20 15:01 | MHC.CM.PN ---
Pt is medically cleared for D/C home self-care. Pts niece Doretha to transport him home.
== END 2023-01-20 16:15 | disposition home or self-care (01) | DRG 720 ==
LOC: HO.ED 01-18 02:04 → HO.EDOVER 01-18 02:26 → HO.IMC 01-18 05:20
PROVIDERS: Admitting Provider Internal Medicine; Emergency Provider Emergency Medicine Emergency Medical Services; PCP Internal Medicine Geriatric Medicine; Visit Provider Family Medicine
DX: A41.9 Sepsis, unspecified organism (principal); G92.8 Other toxic encephalopathy; I50.22 Chronic systolic (congestive) heart failure; I42.8 Other cardiomyopathies; I11.0 Hypertensive heart disease with heart failure; Z86.74 Personal history of sudden cardiac arrest; F14.10 Cocaine abuse, uncomplicated; I25.10 Atherosclerotic heart disease of native coronary artery without angina pectoris; F19.10 Other psychoactive substance abuse, uncomplicated; F11.20 Opioid dependence, uncomplicated; Z20.822 Contact with and (suspected) exposure to COVID-19; Z79.4 Long term (current) use of insulin; Z79.84 Long term (current) use of oral hypoglycemic drugs; Z79.899 Other long term (current) drug therapy
CPT/HCPCS: 0241U; 36415; 70450; 71260; 74177; 80048; 80053; 80076; 80202; 80307; 81001; 82140; 82803; 82947; 83036; 83605; 83690; 83735; 84145; 84484; 85025; 85027; 86140; 86803; 87040; 87389; 93005; 93306; 99285; J0696; J1650; J1885; J2543; J3370; J3371; Q9957; Q9967

== ENCOUNTER 2023-01-18 00:03 | Outpatient (BNV) | payer MEDICAID, SELFPAY | END 2023-01-19 07:00 | PROVIDERS: Admitting Provider Internal Medicine; Emergency Provider Emergency Medicine Emergency Medical Services; PCP Internal Medicine Geriatric Medicine; Visit Provider Internal Medicine | DX: I34.0 Nonrheumatic mitral (valve) insufficiency (principal); I35.8 Other nonrheumatic aortic valve disorders | CPT/HCPCS: 93306 ==

== ENCOUNTER → 2023-01-18 00:03 | Outpatient (BNV) | payer OTHER, SELFPAY | PROVIDERS: Admitting Provider Internal Medicine; Emergency Provider Emergency Medicine Emergency Medical Services; PCP Internal Medicine Geriatric Medicine; Visit Provider Nurse Practitioner Psychiatric/Mental Health | DX: F11.20 Opioid dependence, uncomplicated (principal) | CPT/HCPCS: 99221; 99232 ==

== ENCOUNTER → 2023-01-18 00:03 | Outpatient (BNV) | payer MEDICAID, SELFPAY | PROVIDERS: Admitting Provider Internal Medicine; Emergency Provider Emergency Medicine Emergency Medical Services; Visit Provider Internal Medicine | DX: A41.9 Sepsis, unspecified organism (principal); G93.41 Metabolic encephalopathy; F19.10 Other psychoactive substance abuse, uncomplicated; R74.01 Elevation of levels of liver transaminase levels; R93.0 Abnormal findings on diagnostic imaging of skull and head, not elsewhere classified | CPT/HCPCS: 99223; 99232; 99239; 99499 ==

== ENCOUNTER 2023-05-27 10:12 | Outpatient (REF) | payer MEDICAID, SELFPAY ==
[2023-05-27 12:01] LABS: MANUAL DIFF FLAG NO
[2023-05-27 12:24] LABS: Basophils Percent Auto 0.3 % (0-2); Eosinophils Absolute Auto 0.2 X10*3/uL (0.0-0.4); Eosinophils Percent Auto 2.9 % (0-4); Hematocrit 39.6 % (42.0-52.0); Hemoglobin 12.3 g/dl (14.0-18.0); Imm Gran Abs Auto 0.01 X10*3/uL (0.00-0.03); Imm Gran Pct Auto 0.2 % (0.0-0.4); Lymphocytes Absolute Auto 2.8 X10*3/uL (1.2-4.9); Lymphocytes Percent Auto 44.9 % (20-40); Mean Corpuscular HGB Conc 31.1 g/dl (31.0-36.0); Mean Corpuscular Hemoglobin 28.7 pg (27.0-33.0); Mean Corpuscular Volume 92.5 fL (80.0-98.0); Mean Platelet Volume 10.3 fL (9.4-12.4); Monocytes Absolute Auto 0.5 X10*3/uL (0.1-1.2); Neutrophils Absolute Auto 2.7 x10*3/uL (2.0-8.3); Neutrophils Percent Auto 43.7 % (45-73); Platelet Count 240 X10*3/uL (160-400); Red Blood Count 4.28 X10*6/uL (4.60-5.80); Red Cell Distribution Width 15.1 % (11.0-16.0); White Blood Count 6.2 X10*3/uL (4.8-10.8)
[2023-05-27 13:28] LABS: Alanine Aminotransferase 10 U/L (0-40); Albumin Level 3.6 g/dL (3.5-5.0); Alkaline Phosphatase 104 U/L (39-117); Anion Gap 12 (12-20); Aspartate Amino Transferase 16 U/L (5-37); Bilirubin Total 0.4 mg/dL (0.0-1.0); Blood Urea Nitrogen 15 mg/dL (9-16); Carbon Dioxide 25 mmol/L (22-29); Chloride 109 mmol/L (96-108); Cholesterol 143 mg/dL (<200); Estimated Glomerular Filt Rate > 60; Folate 6.6 ng/mL (> or = 4.0); Glucose Random 82 mg/dL (60-115); HDL Cholesterol 50 mg/dL (>40); Iron 60 mcg/dL (45-160); LDL Cholesterol Calculated 80 mg/dL (<100); Percent Iron Saturation 26 % (15-50); Sodium 142 mmol/L (135-145); Total Iron Binding Capacity 234 mcg/dL (228-428); Triglycerides 69 mg/dL (<150); Unsaturated Iron Binding 174 ug/dL; Vitamin B12 288 pg/mL (200-900)
[2023-05-27 13:45] LABS: Ferritin 81 ng/mL (20-250); TSH reflex Free T4 0.89 uIU/mL (0.32-4.0)
[2023-05-27 14:27] LABS: Reflex LDLD? No
[2023-05-27 17:23] LABS: Creatinine Urine 72.28 mg/dL
== END 2023-05-27 10:13 | disposition home or self-care (01) ==
LOC: HO.HHCL 10:12
PROVIDERS: Visit Provider Family Medicine
DX: D64.9 Anemia, unspecified (principal); E11.65 Type 2 diabetes mellitus with hyperglycemia; Z79.4 Long term (current) use of insulin
CPT/HCPCS: 36415; 80053; 80061; 82043; 82570; 82607; 82728; 82746; 83540; 84443; 85025

== ENCOUNTER 2023-07-08 11:50 | Outpatient (REF) | payer OTHER, SELFPAY ==
[2023-07-08 13:32] LABS: Rheumatoid Factor < 13.0 IU/mL (<15.0)
[2023-07-08 13:40] LABS: Anion Gap 12 (12-20); Blood Urea Nitrogen 20 mg/dL (9-16); C Reactive Protein 0.29 mg/dL (< or = 0.50); Calcium 9.3 mg/dL (8.4-10.2); Carbon Dioxide 25 mmol/L (22-29); Chloride 108 mmol/L (96-108); Estimated Glomerular Filt Rate > 60; Glucose Random 101 mg/dL (60-115); Magnesium 2.1 mg/dL (1.6-2.6); Potassium 4.1 mmol/L (3.3-5.1); Sodium 141 mmol/L (135-145)
[2023-07-08 13:47] LABS: Erythrocyte Sedimentation Rate 23 MM/HR (0-15)
[2023-07-12 14:38] LABS: Cyclic Citrullinated Peptide <16 UNITS
== END 2023-07-08 11:51 | disposition home or self-care (01) ==
LOC: HO.HHCL 11:50
PROVIDERS: Visit Provider Family Medicine
DX: R25.2 Cramp and spasm (principal)
CPT/HCPCS: 36415; 80048; 83735; 85652; 86140; 86200; 86431

== ENCOUNTER 2023-07-09 10:46 | Outpatient (REF) | payer MEDICAID, SELFPAY ==
--- NOTE | ~2023-07-09 | XR_ITS ---
EXAMINATION: XR HAND, BILATERAL XR FOOT, BILATERAL INDICATION: Bilateral hand pain and cramps. TECHNIQUE: 3 views of each foot. 3 views of each hand. FINDINGS: RIGHT HAND: Radiopaque marker placed indicating area of pain indicated by the patient adjacent to the right 5th metacarpal. Ravqnums-cx-[id number] degenerative changes in the 1st carpometacarpal joint with joint space narrowing and hypertrophic change. Faint calcifications in the soft tissues along the radial aspect of the wrist and imaged distal forearm are likely vascular. No displaced fracture appreciated. Mild degenerative changes in scattered IP joints of the digits. LEFT HAND: Radiopaque marker placed to indicate area of concern as indicated by the patient adjacent to the 5th metacarpal. Moderate degenerative changes in the 1st carpometacarpal joint with joint space narrowing and hypertrophic change. Calcifications in the soft tissues along the radial aspect of the imaged distal forearm and wrist are likely vascular. Mild degenerative changes in scattered IP joints of the digits. RIGHT FOOT: Abundant vascular calcifications. Prominent dorsal calcaneal spurring. Small plantar calcaneal spurring with adjacent plantar calcifications. Mild degenerative changes in the 1st metatarsophalangeal joint. RIGHT FOOT: Extensive vascular calcifications. Prominent dorsal calcaneal spurring. Prominent plantar calcaneal spurring with adjacent soft tissue calcifications. Toes are flexed, limiting evaluation. XR/XR foot LT min 3V IMPRESSION: 1. Myccrayq-ne-nkckul degenerative changes in the 1st carpometacarpal joint of the right hand. 2. Moderate degenerative changes in the 1st carpometacarpal joint of the left hand. 3. Bilateral vascular calcifications. 4. Prominent dorsal calcaneal spurring bilaterally. 5. Prominent plantar calcaneal spurring with adjacent soft tissue calcifications bilaterally. No displaced fracture. Recommend follow up imaging in 10-14 days if fracture is suspected.
--- NOTE | ~2023-07-09 | XR_ITS ---
EXAMINATION: XR HAND, BILATERAL XR FOOT, BILATERAL INDICATION: Bilateral hand pain and cramps. TECHNIQUE: 3 views of each foot. 3 views of each hand. FINDINGS: RIGHT HAND: Radiopaque marker placed indicating area of pain indicated by the patient adjacent to the right 5th metacarpal. Kqocfbyb-kk-dvaspg degenerative changes in the 1st carpometacarpal joint with joint space narrowing and hypertrophic change. Faint calcifications in the soft tissues along the radial aspect of the wrist and imaged distal forearm are likely vascular. No displaced fracture appreciated. Mild degenerative changes in scattered IP joints of the digits. LEFT HAND: Radiopaque marker placed to indicate area of concern as indicated by the patient adjacent to the 5th metacarpal. Moderate degenerative changes in the 1st carpometacarpal joint with joint space narrowing and hypertrophic change. Calcifications in the soft tissues along the radial aspect of the imaged distal forearm and wrist are likely vascular. Mild degenerative changes in scattered IP joints of the digits. RIGHT FOOT: Abundant vascular calcifications. Prominent dorsal calcaneal spurring. Small plantar calcaneal spurring with adjacent plantar calcifications. Mild degenerative changes in the 1st metatarsophalangeal joint. RIGHT FOOT: Extensive vascular calcifications. Prominent dorsal calcaneal spurring. Prominent plantar calcaneal spurring with adjacent soft tissue calcifications. Toes are flexed, limiting evaluation. XR/XR foot RT min 3V IMPRESSION: 1. Vgaiepdw-iq-wmlkus degenerative changes in the 1st carpometacarpal joint of the right hand. 2. Moderate degenerative changes in the 1st carpometacarpal joint of the left hand. 3. Bilateral vascular calcifications. 4. Prominent dorsal calcaneal spurring bilaterally. 5. Prominent plantar calcaneal spurring with adjacent soft tissue calcifications bilaterally. No displaced fracture. Recommend follow up imaging in 10-14 days if fracture is suspected.
--- NOTE | ~2023-07-09 | XR_ITS ---
EXAMINATION: XR HAND, BILATERAL XR FOOT, BILATERAL INDICATION: Bilateral hand pain and cramps. TECHNIQUE: 3 views of each foot. 3 views of each hand. FINDINGS: RIGHT HAND: Radiopaque marker placed indicating area of pain indicated by the patient adjacent to the right 5th metacarpal. Rsxssakq-uj-bmpkzv degenerative changes in the 1st carpometacarpal joint with joint space narrowing and hypertrophic change. Faint calcifications in the soft tissues along the radial aspect of the wrist and imaged distal forearm are likely vascular. No displaced fracture appreciated. Mild degenerative changes in scattered IP joints of the digits. LEFT HAND: Radiopaque marker placed to indicate area of concern as indicated by the patient adjacent to the 5th metacarpal. Moderate degenerative changes in the 1st carpometacarpal joint with joint space narrowing and hypertrophic change. Calcifications in the soft tissues along the radial aspect of the imaged distal forearm and wrist are likely vascular. Mild degenerative changes in scattered IP joints of the digits. RIGHT FOOT: Abundant vascular calcifications. Prominent dorsal calcaneal spurring. Small plantar calcaneal spurring with adjacent plantar calcifications. Mild degenerative changes in the 1st metatarsophalangeal joint. RIGHT FOOT: Extensive vascular calcifications. Prominent dorsal calcaneal spurring. Prominent plantar calcaneal spurring with adjacent soft tissue calcifications. Toes are flexed, limiting evaluation. XR/XR hand LT min 3V IMPRESSION: 1. Arukruos-rt-wbebcr degenerative changes in the 1st carpometacarpal joint of the right hand. 2. Moderate degenerative changes in the 1st carpometacarpal joint of the left hand. 3. Bilateral vascular calcifications. 4. Prominent dorsal calcaneal spurring bilaterally. 5. Prominent plantar calcaneal spurring with adjacent soft tissue calcifications bilaterally. No displaced fracture. Recommend follow up imaging in 10-14 days if fracture is suspected.
--- NOTE | ~2023-07-09 | XR_ITS ---
EXAMINATION: XR HAND, BILATERAL XR FOOT, BILATERAL INDICATION: Bilateral hand pain and cramps. TECHNIQUE: 3 views of each foot. 3 views of each hand. FINDINGS: RIGHT HAND: Radiopaque marker placed indicating area of pain indicated by the patient adjacent to the right 5th metacarpal. Dyqqxkar-zu-ocljlz degenerative changes in the 1st carpometacarpal joint with joint space narrowing and hypertrophic change. Faint calcifications in the soft tissues along the radial aspect of the wrist and imaged distal forearm are likely vascular. No displaced fracture appreciated. Mild degenerative changes in scattered IP joints of the digits. LEFT HAND: Radiopaque marker placed to indicate area of concern as indicated by the patient adjacent to the 5th metacarpal. Moderate degenerative changes in the 1st carpometacarpal joint with joint space narrowing and hypertrophic change. Calcifications in the soft tissues along the radial aspect of the imaged distal forearm and wrist are likely vascular. Mild degenerative changes in scattered IP joints of the digits. RIGHT FOOT: Abundant vascular calcifications. Prominent dorsal calcaneal spurring. Small plantar calcaneal spurring with adjacent plantar calcifications. Mild degenerative changes in the 1st metatarsophalangeal joint. RIGHT FOOT: Extensive vascular calcifications. Prominent dorsal calcaneal spurring. Prominent plantar calcaneal spurring with adjacent soft tissue calcifications. Toes are flexed, limiting evaluation. XR/XR hand RT min 3V IMPRESSION: 1. Mtzjoxlc-tg-ixthto degenerative changes in the 1st carpometacarpal joint of the right hand. 2. Moderate degenerative changes in the 1st carpometacarpal joint of the left hand. 3. Bilateral vascular calcifications. 4. Prominent dorsal calcaneal spurring bilaterally. 5. Prominent plantar calcaneal spurring with adjacent soft tissue calcifications bilaterally. No displaced fracture. Recommend follow up imaging in 10-14 days if fracture is suspected.
== END 2023-07-09 10:47 | disposition home or self-care (01) ==
LOC: HO.XRAY 10:46
PROVIDERS: PCP Family Medicine; Visit Provider Family Medicine
DX: R25.2 Cramp and spasm (principal); G89.29 Other chronic pain; M79.671 Pain in right foot; M79.672 Pain in left foot; M79.641 Pain in right hand; M79.642 Pain in left hand
CPT/HCPCS: 73130; 73630

== ENCOUNTER 2023-07-27 10:01 | Outpatient (AMB) | payer MEDICAID, SELFPAY ==
--- NOTE | 2023-07-27 10:09 | MHC.OFFVIS ---
Intake Vital Signs 07/27/23 10:10 Height 5 ft 5 in BP 127/57 L Blood Pressure Location Lt brachial Position Sitting Pulse 86 Comment patient was unale to weight , he is in a wheel chair Intake Visit Reasons: Colonoscopy screening Intake Note: Patient new consult for 2nd pre colonoscopy screening Patient cc: constipation and some acid reflex on and off. Boiler Or Engine Operator Required: Yes Boiler Or Engine Operator Name: Isidoro [id number] Accompanied by: Self / Same As Patient Allergies Penicillins [PCN] Allergy (Intermediate, Verified 07/27/23 10:08) HIVES Medication List - Last Reconciled 07/27/23 by Eugenie Mooney PA-C aspirin 81 mg PO QAM atorvastatin 40 mg PO BEDTIME buprenorphine-naloxone 8-2 mg (Suboxone) 1 film sublingual BID chlorthalidone 25 mg PO DAILY docusate sodium 100 - 200 mg PO BEDTIME PRN furosemide 20 mg PO DAILY insulin glargine (Lantus Solostar U-100 Insulin) 30 units subcut BID levofloxacin 750 mg PO DAILY losartan 100 mg See Protocol PO DAILY metformin 1,000 mg PO BID spironolactone 25 mg See Protocol PO DAILY HPI HPI Comments History of Present Illness Details 10- A 57 y/o male referred for screening colonoscopy previous colonoscopy - unknown He has constipation- take a pill night does not work No abdominal pain or rectal bleeding Appetite is good-no complaints He is unsure of med list- Mo N/V/D/ abdominal pain PFSH Medical History Chest pain Diabetes Essential hypertension History of CVA (cerebrovascular accident) HTN (hypertension) Morbid obesity Type 2 diabetes mellitus with unspecified complications Unstable angina Surgical History No pertinent past surgical history Family History Other CAD (coronary artery disease) Diabetes HTN (hypertension) Social History Household Members: None Housing: Apartment Do you presently have visiting nurse or other home services: Yes Patient Tobacco Use Status: Tobacco use Unknown Tobacco use type: Cigarette Substance Use Type: Crack/Cocaine service: No Current occupational status: unemployed Review of Systems Card Reports dyspnea on exertion Resp Reports dyspnea on exertion GI Denies abdominal pain, Denies hematochezia, Reports constipation, Denies nausea and Denies vomiting Musc Reports abnormal gait, Reports myalgias and Reports arthralgias Neuro Reports abnormal gait Physical Exam Vital Signs: Last Vital Signs Pulse 86 07/27/23 10:10 BP 127/57 L 07/27/23 10:10 Const General: comfortable Nutritional Appearance: obese Limitations: language barrier, physical limitations and wheelchair Resp Effort & Inspection: normal respiratory effort and able to speak in complete sentences Auscultation: no rales, rhonchi and no wheezes Cardio Rate: regular rate Rhythm: regular rhythm Heart sounds: S1 normal heart sound present and S2 normal heart sound present GI Inspection: Yes obesity Palpation (GI): Soft to palpation Auscultation: normal bowel sounds Psych Appearance: well kempt Affect: Labile affect present and Blunted affect present Thought content: suicidality and no homicidality Assessment & Plan Assessment & Plan (1) Chronic HFrEF (heart failure with reduced ejection fraction): Code(s): I50.22 - Chronic systolic (congestive) heart failure (2) NICM (nonischemic cardiomyopathy): Code(s): I42.8 - Other cardiomyopathies (3) Uncontrolled type 2 diabetes mellitus: Code(s): E11.65 - Type 2 diabetes mellitus with hyperglycemia (4) Morbid obesity: Code(s): E66.01 - Morbid (severe) obesity due to excess calories (5) Toxic encephalopathy: Code(s): G92.9 - Unspecified toxic encephalopathy (6) Encounter for screening colonoscopy: Code(s): Z12.11 - Encounter for screening for malignant neoplasm of colon (7) Chronic constipation: Code(s): K59.09 - Other constipation Plan: consistent regimen Plan Hold off on screening colonoscopy- constipation- consistent regimen HFD Medications: New bisacodyl (Dulcolax (bisacodyl)) 10 mg VT DAILY PRN 20 ea 0RF constipation polyethylene glycol 3350 (Miralax) 17 grams PO DAILY 510 grams 6RF docusate sodium (Colace) 200 mg (2 x 100 mg) PO BEDTIME 60 caps 5RF 30 days Patient Instructions: Obese 57 y/o male multiple comorbid illness- colace 200mg Qhs miralax Qhs supp. 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
[2023-07-27 10:10] VITALS: BP 127/57; PULSE 86
== END 2023-07-27 10:57 | disposition home or self-care (01) ==
PROVIDERS: PCP Internal Medicine Geriatric Medicine; Visit Provider Physician Assistant
DX: I50.22 Chronic systolic (congestive) heart failure (principal); I42.8 Other cardiomyopathies; E11.65 Type 2 diabetes mellitus with hyperglycemia; E66.01 Morbid (severe) obesity due to excess calories; G92.9 Unspecified toxic encephalopathy; Z12.11 Encounter for screening for malignant neoplasm of colon; K59.09 Other constipation
CPT/HCPCS: 99204

== ENCOUNTER → 2023-07-27 10:01 | Outpatient (BNVA) | payer MEDICAID, SELFPAY | PROVIDERS: PCP Internal Medicine Geriatric Medicine; Visit Provider Physician Assistant | DX: Z12.11 Encounter for screening for malignant neoplasm of colon (principal); K59.09 Other constipation; I11.0 Hypertensive heart disease with heart failure; I50.22 Chronic systolic (congestive) heart failure; I42.8 Other cardiomyopathies; G92.9 Unspecified toxic encephalopathy; E11.65 Type 2 diabetes mellitus with hyperglycemia; E66.01 Morbid (severe) obesity due to excess calories; Z99.3 Dependence on wheelchair | CPT/HCPCS: 99212 ==

== ENCOUNTER 2023-08-02 13:05 | Outpatient (REF) | payer MEDICAID, SELFPAY ==
--- NOTE | ~2023-08-02 | US_ITS ---
EXAMINATION: US venous duplex LE BI CLINICAL INDICATION: bilateral foot pain, cramping COMPARISON: None relevant TECHNIQUE: Color flow triplex imaging and compression Doppler was performed to evaluate both the deep and the superficial systems bilaterally. To evaluate the superficial system, the examination was performed in the upright position. Color-flow Doppler ultrasound and compression ultrasound were utilized. In addition, maneuvers were utilized to demonstrate reflux. FINDINGS: 1. DEEP VENOUS ULTRASOUND OF THE RIGHT LOWER EXTREMITY: Respiratory variation, normal compression and augmented flow are noted in the right common femoral vein as well as the right popliteal vein and there is no evidence of deep venous thrombosis at these locations. There is no evidence of reflux in the deep system in either the common femoral vein or the popliteal vein. There is no evidence of a Li's cyst. 2. SUPERFICIAL ULTRASOUND WITH DOPPLER OF RIGHT LOWER EXTREMITY: The right great saphenous vein at the saphenofemoral junction measures 7 mm, at the midthigh 4 mm, [id number] 3 mm, ugllt-apv-[id number] 3 mm, at midcalf 3 mm and at the ankle measures 4 mm. There is no reflux demonstrated in the right great saphenous vein. There is a lateral accessory which measures 4 mm at the SFJ and 3 mm at the mid thigh, without evidence of reflux. The right small saphenous vein measures 2 mm and shows no reflux. 3. DEEP VENOUS ULTRASOUND OF THE LEFT LOWER EXTREMITY: Respiratory variation, normal compression and augmented flow are noted in the left common femoral vein as well as the left popliteal vein and there is no evidence of deep venous thrombosis at these locations. There is no evidence of reflux in the deep system in either the common femoral vein or the popliteal vein. There is no evidence of a Li's cyst. 4. SUPERFICIAL ULTRASOUND WITH DOPPLER OF LEFT LOWER EXTREMITY: Left great saphenous vein at the saphenofemoral junction measures 8 mm, at the midthigh 3 mm, tkjeq-rqb-[id number] 3 mm, tnohf-iww-lrlw 3 mm, at midcalf midcalf 3 mm and at the ankle measures 3 mm. There is reflux or 1052 ms at the saphenofemoral junction and for greater than 2456 ms at the above-knee level. There is a lateral accessory which measures 1 mm at the SFA and 2 mm at the mid thigh, without evidence of reflux. The left small saphenous vein measures 3 mm and shows no reflux. US/US venous duplex LE BI IMPRESSION: 1. No evidence of reflux or thrombus in the common femoral veins or popliteal veins bilaterally. 2. The saphenous systems are competent bilaterally. There is reflux seen in the left great saphenous vein as described above.
== END 2023-08-02 13:06 | disposition home or self-care (01) ==
LOC: HO.US 13:05
PROVIDERS: PCP Internal Medicine Geriatric Medicine; Visit Provider Family Medicine
DX: R25.2 Cramp and spasm (principal); M79.671 Pain in right foot; M79.672 Pain in left foot
CPT/HCPCS: 93970

== ENCOUNTER 2023-11-12 15:06 | Inpatient (IN) | payer MEDICAID, SELFPAY ==
[2023-11-12] VITALS (11 sets, daily range): BP systolic 114–142; BP diastolic 51–64; PULSE 80–116; RESP 15–19; TEMP 37.8–39.5; O2SAT 89–100; BMI 36.3
--- NOTE | ~2023-11-12 | XR_ITS ---
EXAMINATION: XR HAND/WRIST, LEFT CLINICAL INFORMATION: Foreign body? COMPARISON: 07/09/2023 TECHNIQUE: PA, lateral, and oblique views of the left hand and wrist. FINDINGS: There is significant soft tissue swelling especially dorsally in the left hand. There is no evidence of radiopaque or radiolucent foreign bodies and soft tissues are normal in gas collection. Visualized osseous structures are unremarkable XR/XR hand wrist LT IMPRESSION: Significant soft tissue edema
--- NOTE | 2023-11-12 15:26 | ED.GENADULT ---
HPI - General Adult General Chief complaint: Extremity Problem Stated complaint: Burn to left hand to 1/2 up forearm heroin use Time Seen by Provider: 11/12/23 15:09 History of Present Illness ED Provider: Dr. Winston HPI narrative: 58 y/o M patient; PMH opioid use disorder, T2DM, HTN, HLD, HFrEF, hx VT/VF with cardiac arrest 11/03/2022; who presents from home with concern for infection to left hand that occurred two days ago. The patient states he was using a hot oven when something in the oven on the door stabbed his hand. He has significant swelling, redness, warmth, and pain to his left hand extending into his forearm. He denies: other injuries, fever or chills, chest pain, SOB, cough/congestion, nausea/vomiting, abdominal pain. Patient states he snorted 3 bags of dope immediately prior to arrival as hospitals make him nervous. Related Data Home Medications ?Medication ?Instructions ?Recorded ?Confirmed aspirin 81 mg tablet,delayed 81 mg PO QAM 01/18/23 01/18/23 release atorvastatin 40 mg tablet 40 mg PO BEDTIME 01/18/23 01/18/23 chlorthalidone 25 mg tablet 25 mg PO DAILY 01/18/23 01/18/23 docusate sodium 100 mg capsule 100 - 200 mg PO BEDTIME PRN 01/18/23 01/18/23 constipation furosemide 20 mg tablet 20 mg PO DAILY 01/18/23 01/18/23 insulin glargine 100 unit/mL (3 30 unit subcut BID 01/18/23 01/18/23 mL) subcutaneous pen (Lantus Solostar U-100 Insulin) metformin 1,000 mg tablet 1,000 mg PO BID 01/18/23 01/18/23 Previous Rx's ?Medication ?Instructions ?Recorded buprenorphine 8 mg-naloxone 2 mg 1 film sublingual BID #10 ea 01/20/23 sublingual film (Suboxone) levofloxacin 750 mg tablet 750 mg PO DAILY #7 tabs 01/20/23 losartan 50 mg tablet 100 mg PO DAILY #30 tabs 01/20/23 spironolactone 25 mg tablet 25 mg PO DAILY #30 tabs 01/20/23 bisacodyl 10 mg rectal suppository 10 mg FL DAILY PRN constipation 07/27/23 (Dulcolax (bisacodyl)) #20 ea docusate sodium 100 mg capsule 200 mg (2 x 100 mg) PO BEDTIME 30 07/27/23 (Colace) days #60 caps polyethylene glycol 3350 17 17 g PO DAILY #510 grams 07/27/23 gram/dose oral powder (Miralax) Allergies Allergy/AdvReac Type Severity Reaction Status Date / Time Penicillins [PCN] Allergy Intermediate HIVES Verified 11/12/23 15:44 Review of Systems Review of Systems: Yes all other systems are reviewed and are negative Neurologic: Denies Sensory deficit (Neuro) [facility] Past Medical History Attestation statement: The following information was validated with the patient. Source: old records reviewed Medical History Type 2 diabetes mellitus with unspecified complications Essential hypertension Unstable angina History of CVA (cerebrovascular accident) Diabetes HTN (hypertension) Morbid obesity Chest pain Surgical History No pertinent past surgical history Family History Family History Other CAD (coronary artery disease) Diabetes HTN (hypertension) Social History Social History Household Members: None Housing: Apartment Do you presently have visiting nurse or other home services: Yes Patient Tobacco Use Status: Tobacco use Unknown Tobacco use type: Cigarette Substance Use Type: Crack/Cocaine Advance Directives: No Advance Directives Information Provided: No service: No Current occupational status: unemployed Physical Exam ED Vital Signs: Vital Signs - 24 hr 11/12/23 15:35 11/12/23 15:36 11/12/23 17:10 Temperature 103.1 F H Pulse Rate 80 98 Respiratory Rate 19 17 Blood Pressure 142/64 H Pulse Oximetry 98 99 Oxygen Delivery Method Nasal Cannula Room Air BMI result Body Mass Index 36.3 Patient is febrile and hemodynamically stable Const General: cooperative Orientation/consciousness: patient oriented x3 HENMT Head: Yes normal to inspection and Yes atraumatic Eyes General: appearance normal, both eyes and all related structures Pupils: Equal, round and reactive pupils present EOM: EOMs intact bilaterally Neck Neck: Yes normal visual inspection, Yes full ROM, Yes supple and No tender Chest Chest palpation & inspection: normal inspection of the chest and normal palpation of entire chest wall Resp Effort & Inspection: normal respiratory effort, able to speak in complete sentences, no cough and no respiratory distress Auscultation: clear to auscultation bilaterally Cardio Rate: regular rate Rhythm: regular rhythm Peripheral pulses: Peripheral pulses 2+ throughout GI Inspection: Yes normal to inspection, No Abdominal wall edema and No distended Palpation (GI): Soft to palpation, not firm, nontender, no guarding and not rigid Auscultation: normal bowel sounds Skin Other: Left digits, palm, wrist, and 1/2 forearm with significant edema, erythema, and tenderness to palpation. Open wound to dorsal aspect of 3rd distal MC. Palpable radial pulse. Neuro General: patient oriented x3 Cranial nerves: Yes Equal, round and reactive pupils present Motor exam (neuro): 5/5 motor strength present throughout Sensory Exam: No Sensory deficit (Neuro) Course Course Course Narrative: Patient is febrile and hemodynamically stable. Concern for deep space hand infection. Will obtain lactic acid and blood cultures, starting on Zosyn and Vancomycin. Will obtain XR Left Hand. Providing pain control with Tylenol given recent dope use. Discussed with orthopedics. Recommend admission to medicine for IV antibiotics. Orthopedic recommendations: warm water soaks and elevation. NPO at midnight Plan: Admit to hospitalist Condition: Stable Medications Administered Discontinued Medications Generic Name Dose Route Start Last Admin Trade Name Freq PRN Reason Stop Dose Admin Diphtheria/Tetanus/Acell Pertussis 0.5 ml 11/12/23 15:41 11/12/23 16:31 Diphth,Pertus(Acell),Tet Adult 0.5 Ml Syringe IM 11/12/23 15:42 0.5 ml .ONCE ONE Administration Piperacillin Sod/Tazobactam 50 mls @ 100 mls/hr 11/12/23 15:36 11/12/23 17:30 Sod 3.375 gm/ Sodium Chloride IV 11/12/23 16:05 Infused ONCE ONE Infusion Sodium Chloride 1,000 mls @ 999 mls/hr 11/12/23 15:45 11/12/23 17:30 Ns IV 11/12/23 16:45 Infused .Q1H1M JAMIE Infusion Acetaminophen 1,000 mg in 100 mls @ 400 mls/hr 11/12/23 15:38 07/05/24 17:00 Ofirmev IV 11/12/23 15:52 Infused ONCE ONE Infusion Vancomycin HCl 2,000 mg in 500 mls @ 250 mls/hr 11/12/23 16:00 11/12/23 16:27 Vancomycin/Ns IV 11/12/23 17:59 250 mls/hr ONCE ONE Administration Medical Decision Making Consult Healthcare Provider Management of the patient was discussed with: Sanding Machine Tender Consulted orthopedics and hospitalist for admission Lab Data 11/12/23 16:16 11/12/23 16:16 Labs: Lab Results 11/12/23 Range/Units 16:16 WBC 25.3 H (4.8-10.8) X10*3/uL RBC 4.16 L (4.60-5.80) X10*6/uL Hgb 11.7 L (14.0-18.0) g/dl Hct 35.8 L (42.0-52.0) % MCV 86.1 (80.0-98.0) fL MCH 28.1 (27.0-33.0) pg MCHC 32.7 (31.0-36.0) g/dl RDW 14.2 (11.0-16.0) % Plt Count 234 (160-400) X10*3/uL MPV 10.5 (9.4-12.4) fL Immature Gran % (Auto) 1.3 H (0.0-0.4) % Neut % (Auto) 84.5 H (45-73) % Lymph % (Auto) 7.8 L (20-40) % [place] % (Auto) 5.9 (2-11) % Eos % (Auto) 0.2 (0-4) % Baso % (Auto) 0.3 (0-2) % Lymph # (Auto) 2.0 (1.2-4.9) X10*3/uL [place] # (Auto) 1.5 H (0.1-1.2) X10*3/uL Eos # (Auto) 0.0 (0.0-0.4) X10*3/uL Baso # (Auto) 0.1 (0.0-0.2) X10*3/uL Abs Immat Gran (auto) 0.34 H (0.00-0.03) X10*3/uL Absolute Neuts (auto) 21.4 H (2.0-8.3) x10*3/uL Absolute Nucleated RBC 0.000 (0.0-0.012) X10*3/uL Nucleated RBC % (auto) 0.0 (0.0-0.2) /100WBC Smear Tech's Comments VERIFIED ESR 77 H (0-15) MM/HR Sodium 136 (135-145) mmol/L Potassium 3.0 L D (3.3-5.1) mmol/L Chloride 97 (96-108) mmol/L Carbon Dioxide 29 (22-29) mmol/L Anion Gap 13 (12-20) BUN 9 (9-16) mg/dL Creatinine 0.88 (0.5-1.4) mg/dL Estim Creat Clear Calc 98.9 Estimated GFR > 60 Random Glucose 142 H (60-115) mg/dL Lactic Acid 1.9 (0.5-2.0) mmol/L Calcium 9.0 (8.4-10.2) mg/dL Magnesium 1.7 (1.6-2.6) mg/dL C-Reactive Protein 26.79 H (< or = 0.50) mg/dL Lipase 21 (8-78) U/L Radiology Impression Discussion of test interpretation with radiology: I have reviewed the radiologist's reading. Radiologist Impression: EXAMINATION: XR HAND/WRIST, LEFT CLINICAL INFORMATION: Foreign body? COMPARISON: 07/09/2023 TECHNIQUE: PA, lateral, and oblique views of the left hand and wrist. FINDINGS: There is significant soft tissue swelling especially dorsally in the left hand. There is no evidence of radiopaque or radiolucent foreign bodies and soft tissues are normal in gas collection. Visualized osseous structures are unremarkable XR/XR hand wrist LT IMPRESSION: Significant soft tissue edema Discharge Plan Discharge Clinical Impression: Infection of left hand Patient Disposition: Admitted As Inpatient Print Language: Kyrgyz
--- NOTE | 2023-11-12 16:07 | PC.NURSE ---
per EMS pt was found in electric wheelchair - too big to transport via ambulance. Jeb Henry to try to coordinate chair van to fiber picker w chair van and drop off to pt. [facility] brought chair into facility to keep safe.
--- OUTSIDE RECORDS SUMMARY | 2023-11-12 16:25 | XMS_ITS | Continuity of Care Document ---
Author Organization [facility] ter Address [address] [place] [id number]- Care Team Providers Care Supplies Packer Name Role Phone Félix POSADAS, Faith Trent Primary Care Physician Encounter [facility] Date(s): 05/14/19 - 05/15/[address] [address]- [facility] Encounter Diagnosis Chest pain(Final) - 05/14/19 Discharge Disposition: A-D/C Home Attending Physician: Saloni Mark MD Admitting Physician: Tara POSADAS, Cordell Harrison Referring Physician: Not on Staff, Referring MD Allergies, Adverse Reactions, Alerts Substance Reaction Severity Status penicillin Active Immunizations Not Given Vaccine Date Status Refusal Reason pneumococcal 23-valent vaccine 11/10/18 Not Given Patient Refuses Medications acetaminophen 650 mg oral tablet 1 tablet = 650 mg, By Mouth, Every 6 hours, PRN for pain, # 20 tablet, 0 Refills, Maintenance, Tablet Start Date: 08/08/10 Status: Ordered Aspirin Enteric Coated 81 mg oral delayed release tablet TAKE 1 TABLET BY MOUTH EVERY DAY Start Date: 11/10/18 Status: Ordered atorvastatin 80 mg oral tablet 1 tablet = 80 mg, By Mouth, Daily, # 30 tablet, 3 Refills, Maintenance, Tablet, Route to Pharmacy Electronically, [id number], [facility] Start Date: 11/11/18 Status: Ordered Coreg 6.25 mg oral tablet 6.25 mg, By Mouth, 2 times a day, # 60 tablet, Refills 3, Tot. Refills 3, Maintenance, 12/11/18 15:23:32 EDT, Route to Pharmacy Electronically, [id number], [facility] 3 Start Date: 12/11/18 Stop Date: 04/10/19 Status: Ordered diet diet, See Instructions, # 1 units, Refills 0, Tot. Refills 0, Maintenance, PATIENT HAS MULTIPLE MEDICAL PROBLEMS INCLUDING DIABETES & OBESITY; HIS HEALTH WOULD BENEFIT FROM A DIET THAT IS LOW IN SODIUM AND LOW IN FAT; HE NEEDS TO EAT THREE REGULAR CAR... Start Date: 08/08/10 Status: Ordered isosorbide mononitrate 30 mg oral tablet, extended release 30 mg, 1, tablet, By Mouth, Daily in AM, # 30 tablet, Refills 3, Tot. Refills 3, Maintenance, 11/11/18 15:29:55 EDT, Route to Pharmacy Electronically, [id number], [facility] 3 Start Date: 11/11/18 Status: Ordered Lantus Solostar Pen 100 units/mL subcutaneous solution = 40 units, Subcutaneous Injection, Daily, # 10 mL, 0 Refills, Maintenance, 11/10/18 0:30:39 EDT, Solution Start Date: 11/10/18 Status: Ordered lisinopril 40 mg oral tablet 1 tablet = 40 mg, By Mouth, Daily, # 30 tablet, 0 Refills, Maintenance, 11/10/18 0:18:34 EDT, Tablet Start Date: 11/10/18 Status: Ordered metFORMIN 1000 mg oral tablet 1 tablet = 1,000 mg, By Mouth, 2 times a day, # 180 tablet, 0 Refills, Maintenance, 11/10/18 0:18:41 EDT, Tablet Start Date: 11/10/18 Status: Ordered repaglinide 1 mg oral tablet 1 tablet = 1 mg, By Mouth, 3 times a day before meals, hold dose if meal is missed, # 270 tablet, 0Refills, Maintenance, 11/10/18 0:24:40 EDT, Tablet Start Date: 11/10/18 Status: Ordered Problem List Condition Effective Dates Status Health Status Inform ant Chest pain(Confirmed) Active Results Radiology Reports * Exam Date Time Procedure Performing Provider Status 05/14/19 11:40 PM Chest 2 Views Frontal and Lat Alexus Kaba; Disha (Verified) Notes: (Chest 2 Views Frontal and Lat) Reason For Exam: Angina RESULT: Chest 2 Views Frontal and Lat Chest 2 Views Frontal and Lat Reason: Angina; Clinical Question(s): CHF; Hx of Present Illness: from [facility] - CP since 0600; Other Objective Findings: see interactive flow sheet COMPARISON: 11/09/2018. FINDINGS: LINES AND TUBES: None. LUNGS AND PLEURA: Clear lungs. Normal pulmonary vascularity. No pleural effusion. No pneumothorax. HEART, MEDIASTINUM AND CARIE: Heart is normal in size. Normal mediastinal and hilar contour. BONES AND SOFT TISSUES: No acute abnormality. IMPRESSION: No acute cardiopulmonary pathology on chest x-ray. WSN: [id number] Dictated By: John Morejon MD Dictated Date/Time: 05/14/19 11:43 p Reviewed By: John Morejon MD Signed By: John Morejon MD Signed Date/Time: 05/14/19 11:43 pm Transcribed By: DENIA Transcribed Date/Time: 05/14/19 11:42 pm Vital Signs Most recent to oldest [Reference Range]: 1 2 3 Height 165 cm (05/15/19 11:21 AM) 165 cm (05/15/19 7:16 AM) 165 cm (05/15/19 4:34 AM) Weight 111 kg (05/15/19 4:10 AM) Oxygen Saturation [94-100 %] 96 % (05/15/19 11:21 AM) 98 % (05/15/19 7:16 AM) 98 % (05/15/19 4:34 AM) Pulse Rate [55-90 bpm] 85 bpm (05/15/19 11:21 AM) 63 bpm (05/15/19 9:46 AM) 63 bpm (05/15/19 7:16 AM) Body Mass Index [18.5-24.99] 40.77 *>HHI* (05/15/19 4:10 AM) Blood Pressure [90-138/55-84 mm Hg] 117/56mm Hg (05/15/19 11:21 AM) 133/69mm Hg (05/15/19 9:46 AM) 133/69mm Hg (05/15/19 9:46 AM) Respiratory Rate [16-30 br/min] 20 br/min (05/15/19 11:21 AM) 20 br/min (05/15/19 7:16 AM) 18 br/min (05/15/19 4:34 AM) Temperature [96.8-100.4 DegF] 98.0 DegF (05/15/19 11:21 AM) 97.9 DegF (05/15/19 7:16 AM) 97.9 DegF (05/15/19 4:34 AM) Mode of Delivery (Oxygen) Room air (05/15/19 11:21 AM) Room air (05/15/19 7:16 AM) Room air (05/15/19 4:34 AM) Blood pressure sites Arm, left (05/15/19 11:21 AM) Arm, right (05/15/19 7:16 AM) Arm, right (05/15/19 4:34 AM) Temperature Route Oral (05/15/19 11:21 AM) Oral (05/15/19 7:16 AM) Oral (05/15/19 4:34 AM) Dry Weight 111 kg (05/15/19 4:10 AM) Social History Social History Type Response Smoking Status 5-9 cigarettes (betw een 1/4 to 1/2 pack)/day in last 30 days entered on: 11/09/18 Sex
--- OUTSIDE RECORDS SUMMARY | 2023-11-12 16:25 | XMS_ITS | Continuity of Care Document ---
Author Organization [facility] Address [address] [place] [phone]- Care Team Providers Care Information Services Consultant Name Role Phone Félix POSADAS, Faith Trent Primary Care Physician Encounter [facility] [id number] Date(s): 07/10/21 - 08/15/[address] [address] Attending Physician: Guillermo ZUÑIGA, Nataliia Waite Admitting Physician: Guillermo ZUÑIGA, Nataliia Waite Referring Physician: Guillermo ZUÑIGA, Nataliia Waite Allergies, Adverse Reactions, Alerts Substance Reaction Severity Status penicillin Active Immunizations Given and Recorded Vaccine Date Status Refusal Reason SARS-CoV-2 (COVID-19) mRNA-1273 vaccine 07/10/20 R ecorded SARS-CoV-2 (COVID-19) mRNA-1273 vaccine 06/11/20 R ecorded influenza virus vaccine, inactivated 01/24/18 Vinayak rded tetanus-diphtheria toxoids (Td) 06/18/08 Recorded pneumococcal 23-valent vaccine 06/18/08 Recorded pneumococcal 23-valent vaccine 01/12/03 Recorded Hepatitis A Adult Vaccine 05/31/08 Recorded Hepatitis A Adult Vaccine 01/12/03 Recorded Not Given Vaccine Date Status Refusal Reason pneumococcal 23-valent vaccine 11/10/18 Not Given Patient Refuses Medications amitriptyline 50 mg oral tablet 1 tablet = 50 mg, By Mouth, Daily at bedtime, Maintenance, 06/18/20 11:50:00 EST, Partial fill uponpatient request if the prescription is for a schedule II opioid drug. Start Date: 06/18/20 Stop Date: 08/01/20 Status: Ordered atorvastatin 80 mg oral tablet 1 tablet = 80 mg, By Mouth, Daily at bedtime, # 30 tablet, 0 Refills, Maintenance, 11/18/20 16:24:00 EDT, Tablet, Partial fill upon patient request if the prescription is for a schedule II opioid drug. Start Date: 11/18/20 Status: Ordered buprenorphine 8 mg sublingual tablet, disintegrating 1 tablet = 8 mg, Sublingual, Daily, dissolve under the tongue, Maintenance, 06/18/20 11:47:00 EST, Tablet, Partial fill upon patient request if the prescription is for a schedule II opioid drug. Start Date: 06/18/20 Stop Date: 06/23/20 Status: Ordered Ciclesonide 160 Mcg/Inh Inhalation Aerosol 2 puffs, Inhalation, 2 times a day, # 6.1 Gm, 0 Refills, Maintenance, 11/17/20 16:47:00 EDT, Aerosol, Partial fill upon patient request if the prescription is for a schedule II opioid drug. Start Date: 11/17/20 Status: Ordered clindamycin 150 mg oral capsule See Instructions, 2 capsule TID from 11/14/20 to 11/19/20 2 capsules BID on 11/20/20, 0 Refills, Maintenance, 11/17/20 16:52:00 EDT, Partial fill upon patient request if the prescription is for a schedule II opioid drug. Start Date: 11/17/20 Status: Ordered Colace sodium 100 mg oral capsule 100 mg, 1, capsule, By Mouth, 2 times a day, PRN, Refills 0, Maintenance, as needed for constipation, 06/28/20 10:12:00 EST, Partial fill upon patient request if the prescription is for a schedule IIopioid drug. Start Date: 06/28/20 Status: Ordered Coreg 6.25 mg oral tablet 6.25 mg, By Mouth, 2 times a day, # 60 tablet, Refills 3, Tot. Refills 3, Maintenance, 12/11/18 15:23:32 EDT, Route to Pharmacy Electronically, [id number], [facility] 3 Start Date: 12/11/18 Stop Date: 04/10/19 Status: Ordered ertugliflozin 5 mg oral tablet 1 tablet = 5 mg, By Mouth, Daily in AM, # 30 tablet, 0 Refills, Maintenance, 11/22/20 15:47:00 EDT,Tablet, Partial fill upon patient request if the prescription is for a schedule II opioid drug. Start Date: 11/22/20 Status: Ordered furosemide 20 mg oral tablet 40 mg, 2, tablet, By Mouth, Daily in AM, Maintenance, 06/18/20 11:50:00 EST, Partial fill upon patient request if the prescription is for a schedule II opioid drug. Start Date: 06/18/20 Stop Date: 06/22/20 Status: Ordered glyBURIDE 5 mg oral tablet 5 mg, 1, tablet, By Mouth, Daily, # 30 tablet, Refills 0, Maintenance, 11/17/20 16:50:00 EDT, Partial fill upon patient request if the prescription is for a schedule II opioid drug. Start Date: 11/17/20 Status: Ordered insulin detemir 100 units/mL subcutaneous solution = 36 units, Subcutaneous Injection, Every 12 hours, 0 Refills, Maintenance, 06/28/20 10:05:00 EST, Injection, Partial fill upon patient request if the prescription is for a schedule II opioid drug. Start Date: 06/28/20 Status: Ordered Insulin Lispro 2-10 units, Subcutaneous Injection, 3 times a day before meals, << Sliding Scale Comments >> 150 - 199 2 units Call if less than 100 200 - 249 4 units 250 - 299 6 units 300 - 349 8 units 350 - 399 10 units Call if greater than 400 <... Start Date: 06/28/20 Status: Ordered lactulose 10 gm/15 ml oral syrup 30 mL = 20 Gm, By Mouth, 2 times a day, # 480 mL, 0 Refills, Maintenance, 11/17/20 16:49:00 EDT, Syrup, Partial fill upon patient request if the prescription is for a schedule II opioid drug. Start Date: 11/17/20 Status: Ordered levalbuterol 45 mcg/inh inhalation aerosol See Instructions, PRN for wheezing, 2 puffs Inhalation Every 4 TO 6 hours PRN, 0 Refills, Maintenance, 11/17/20 16:48:00 EDT, Aerosol, Partial fill upon patient request if the prescription is for a schedule II opioid drug. Start Date: 11/17/20 Status: Ordered lisinopril 20 mg oral tablet 20 mg, 1, tablet, By Mouth, Daily at bedtime, Refills 0, Maintenance, 06/28/20 10:05:00 EST, Partial fill upon patient request if the prescription is for a schedule II opioid drug. Start Date: 06/28/20 Status: Ordered metFORMIN 500 mg oral tablet 1 tablet = 500 mg, By Mouth, Daily, with meals, # 30 tablet, 0 Refills, Maintenance, 11/17/20 16:50:00 EDT, Tablet, Partial fill upon patient request if the prescription is for a schedule II opioid drug. Start Date: 11/17/20 Status: Ordered MiraLax Powder 1 pack/packet = 17 Gm, By Mouth, Daily, PRN Constipation, 0 Refills, Maintenance, 06/28/20 10:12:00EST, Powder, Partial fill upon patient request if the prescription is for a schedule II opioid drug. Start Date: 06/28/20 Status: Ordered pantoprazole 40 mg oral delayed release tablet = 40 mg, By Mouth, Daily, # 14 tablet, 0 Refills, Maintenance, 11/18/20 16:24:00 EDT, EC Tablet Start Date: 11/18/20 Stop Date: 12/02/20 Status: Ordered Plavix 75 mg oral tablet 75 mg, 1, tablet, By Mouth, Daily, Refills 0, Maintenance, 06/28/20 10:12:00 EST, Partial fill uponpatient request if the prescription is for a schedule II opioid drug. Start Date: 06/28/20 Status: Ordered Problem List Condition Effective Dates Status Health Status Inform ant Chest pain(Confirmed) Active Severe obesity(Confirmed) Active Social History Social History Type Response Smoking Status 5-9 cigarettes (betw een 1/4 to 1/2 pack)/day in last 30 days entered on: 11/09/18 Sex
--- OUTSIDE RECORDS SUMMARY | 2023-11-12 16:25 | XMS_ITS | Continuity of Care Document ---
Author Organization [facility] Address [address] [facility], [address], [address] [place] [address]- Care Team Providers Care Workers Compensation Coordinator Name Role Phone Félix POSADAS, Faith Trent Primary Care Physician [place] [facility] [place] Date(s): 08/12/20 - 09/11/20 [facility] [address], [address], [address] [place] [id number] Attending Physician: Ron Chavis Admitting Physician: Ron Chavis Referring Physician: trRon Allergies, Adverse Reactions, Alerts Substance Reaction Severity Status penicillin Active Immunizations Not Given Vaccine Date Status Refusal Reason pneumococcal 23-valent vaccine 11/10/18 Not Given Patient Refuses Medications acetaminophen 325 mg oral tablet 650 mg, By Mouth, Every 4 hours, PRN, Temperature Greater than 100.5 not to exceed 4000 mg/day, Refills 0, Maintenance, Pain , Mild, 06/28/20 10:06:00 EST, Partial fill upon patient request if the prescription is for a schedule II opioid drug. Start Date: 06/28/20 Status: Ordered albuterol CFC free 90 mcg/inh inhalation aerosol 180 mcg, 2, puffs, Inhalation, Every 4 hours, PRN, Refills 0, Maintenance, 06/28/20 10:06:00 EST, Inhaler Start Date: 06/28/20 Status: Ordered amitriptyline 50 mg oral tablet 1 tablet = 50 mg, By Mouth, Daily at bedtime, Maintenance, 06/18/20 11:50:00 EST, Partial fill uponpatient request if the prescription is for a schedule II opioid drug. Start Date: 06/18/20 Stop Date: 08/01/20 Status: Ordered Aspirin Enteric Coated 81 mg oral delayed release tablet 1 tablet = 81 mg, By Mouth, Daily Start Date: 11/10/18 Status: Ordered atorvastatin 80 mg oral tablet 1 tablet = 80 mg, By Mouth, Daily at bedtime, 0 Refills, Maintenance, 06/28/20 10:06:00 EST, Tablet, Partial fill upon patient request if the prescription is for a schedule II opioid drug. Start Date: 06/28/20 Status: Ordered buprenorphine 8 mg sublingual tablet, disintegrating 1 tablet = 8 mg, Sublingual, Daily, dissolve under the tongue, Maintenance, 06/18/20 11:47:00 EST, Tablet, Partial fill upon patient request if the prescription is for a schedule II opioid drug. Start Date: 06/18/20 Stop Date: 06/23/20 Status: Ordered Colace sodium 100 mg oral [...] 12/11/18 15:23:32 EDT, Route to Pharmacy Electronically, [id number], [facility] 3 Start Date: 12/11/18 Stop Date: 04/10/19 Status: Ordered furosemide 20 mg oral tablet 20 mg, 1, tablet, By Mouth, Daily in AM, Maintenance, 06/18/20 11:50:00 EST, Partial fill upon patient request if the prescription is for a schedule II opioid drug. Start Date: 06/18/20 Stop Date: 06/22/20 Status: Ordered gabapentin 100 mg oral capsule 200 mg, 2, capsule, By Mouth, 3 times a day, Refills 0, Maintenance, 06/28/20 10:12:00 EST, Partialfill upon patient request if the prescription is for a schedule II opioid drug. Start Date: 06/28/20 Status: Ordered Imdur 30 mg oral tablet, extended release 30 mg, By Mouth, Daily, Refills 0, Maintenance, 06/28/20 10:12:00 EST, Partial fill upon patient request if the prescription is for a schedule II opioid drug. Start Date: 06/28/20 Status: Ordered insulin detemir 100 units/mL subcutaneous solution = 60 units, Subcutaneous Injection, Every 12 hours, 0 [...] 400 <... Start Date: 06/28/20 Status: Ordered lisinopril 20 mg oral tablet 10 mg, 0.5, tablet, By Mouth, Daily at bedtime, Refills 0, Maintenance, 06/28/20 10:05:00 EST, Partial fill upon patient request if the prescription is for a schedule II opioid drug. Start Date: 06/28/20 Status: Ordered MiraLax Powder 1 pack/packet = 17 Gm, By Mouth, Daily, PRN Constipation, 0 Refills, Maintenance, 06/28/20 10:12:00EST, Powder, Partial fill upon patient request if the prescription is for a schedule II opioid drug. Start Date: 06/28/20 Status: Ordered Plavix 75 mg oral tablet 75 mg, 1, tablet, By Mouth, Daily, Refills 0, Maintenance, 06/28/20 10:12:00 EST, Partial fill uponpatient request if the prescription is for a schedule II opioid drug. Start Date: 06/28/20 Status: Ordered Senna 8.6 mg oral tablet 8.6 mg, 1, tablet, By Mouth, Daily at bedtime, PRN, Refills 0, Maintenance, as needed for constipation, 06/28/20 10:12:00 EST, Tablet, Partial fill upon patient request if the prescription is for a schedule II opioid drug. Start Date: 06/28/20 Status: Ordered Problem List Condition Effective Dates Status Health Status Inform ant Chest pain(Confirmed) Active Social History Social History Type Response Smoking Status 5-9 cigarettes (betw een 1/4 to 1/2 pack)/day in last 30 days entered on: 11/09/18 Sex
--- OUTSIDE RECORDS SUMMARY | 2023-11-12 16:25 | XMS_ITS | Continuity of Care Document ---
Author Organization [facility] ter Address [address] [place] [address]- Care Team Providers Care Ring Striker Name Role Phone Faith Heard MD Primary Care Physician [place] [facility] [place]/18[place] - 06/28/[address] [address]- Encounter Diagnosis Back pain(Final) - 06/18/20 Weakness(Final) - 06/21/20 Discharge Disposition: [facility]red [facility] Attending Physician: Jose Alfredo Etienne MD Admitting Physician: Rica Serra MD Referring Physician: Not on Staff, Referring MD [...] Coreg 6.25 mg oral tablet 6.25 mg, Tablet, By Mouth, 06/28/20 9:00:00 EST Start Date: 06/28/20 Stop Date: 06/28/20 Status: Completed Coreg 6.25 mg oral tablet 6.25 mg, By Mouth, 2 times a day, # 60 tablet, Refills 3, Tot. Refills 3, Maintenance, 12/11/18 15:23:32 EDT, Route to Pharmacy Electronically, [id number], [facility] 3 Start Date: 12/11/18 Stop Date: 04/10/19 [...] opioid drug. Start Date: 06/28/20 Status: Ordered gabapentin 100 mg oral capsule 100 mg, Capsule, By Mouth, 06/28/20 6:00:00 EST Start Date: 06/28/20 Stop Date: 06/28/20 Status: Completed Imdur 30 mg oral tablet, extended release [...] Exam Date Time Procedure Performing Provider Status 06/25/20 2:25 PM Chest 2 Views Frontal and Lat Sachin العلي (Verified) Notes: (Chest 2 Views Frontal and Lat) Reason For Exam: Cough RESULT: Chest 2 Views Frontal and Lat AP and lateral chest x-ray dated 2020. Comparison films are from June 18, 2020. HISTORY: Cough. FINDINGS: The cardiac silhouette is within normal limits for size. Some minimal pulmonary vascular prominence is noted. No airspace infiltrate or pleural effusion is identified. Minimal degenerative changes are noted in the spine. IMPRESSION: No evidence of acute pulmonary disease. Findings could be the result of a minimal volume overload. Examination [address]. Thank you for allowing me to participate in the care of this patient. WSN: [id number] Ordering Physician: Dina Owen Dictated By: Rodolfo Lam MD Dictated Date/Time: 06/25/20 2:30 pm Reviewed By: Rodolfo Lam MD Signed By: Rodolfo Lam MD Signed Date/Time: 06/25/20 2:30 pm Transcribed By: DENIA Transcribed Date/Time: 06/25/20 2:29 pm * Exam Date Time Procedure Performing Provider Status 06/21/20 2:51 PM Modified Barium Swal low W/ Speech (Radio Odalys Agosto (Verified) Notes: (Modified Barium Swallow W/ Speech (Radio) Reason For Exam: Dysphagia;Dysphagia RESULT: Modified Barium Swallow W/ Speech (Radio Modified Barium Swallow W/ Speech (Radio INDICATION: Dysphagia. CLINICAL QUESTION: Aspiration. COMPARISON: None FLUOROSCOPY TIME: 1.2 minutes. DAP: 96.0 mGy-cm2 TECHNIQUE: Multiphase modified barium swallow was performed in conjunction with the speech pathologist during lateral fluoroscopic imaging. Thin liquids, solids, cookies and pudding textures were used. The patient was seated upright in the lateral projection. FINDINGS: Normal swallow with no nasopharyngeal reflux. No pooling in the valleculae or piriform sinuses. No laryngeal penetration or aspiration with any phase. Limited visualized cervical esophagus is unremarkable. Mild anterior spurring of the upper cervical spine. IMPRESSION: Normal. Please see speech therapy report for recommendations. I have personally reviewed the images and I agree with this report. WSN: [id number] Ordering Physician: Megan Hernandez Dictated By: Bob Hurd MD Dictated Date/Time: 06/21/20 5:00 pm Reviewed By: John Tian MD Signed By: John Tian MD Signed Date/Time: 06/21/20 5:05 pm Transcribed By: DENIA Transcribed Date/Time: 06/21/20 4:44 pm * Exam Date Time Procedure Performing Provider Status 06/18/20 8:13 AM Chest Portable Rohini Luz; Disha (Verified) Notes: (Chest Portable) Reason For Exam: Stroke;Other: RESULT: Chest Portable Chest Portable performed upright at 8:05 AM Hx of Present Illness: via [place] inter #[id number] - pt reports going from sitting to standing position, felt dizzy and fell onto L side. denies head inj. now reports lower back and L thigh pain with numbness tingling to LLE.; Reason: Other:; Stroke; Clinical Question(s): CHF COMPARISON: None. FINDINGS: LINES AND TUBES: None. LUNGS AND PLEURA: There are markedly low lung volumes with retrocardiac left basilar opacity as well as hazy density at the right lung base. There is blunting of the left costophrenic angle. No pneumothorax. HEART, MEDIASTINUM AND CARIE: Likely within normal limits given low lung volumes. Normal upper mediastinal and hilar contour. BONES AND SOFT TISSUES: No acute abnormality. IMPRESSION: Low lung volumes with bibasilar opacities, left greater than right blunting the left costophrenic angle. This may reflect pleural effusion with adjacent atelectasis or pneumonia. WSN: [id number] Ordering Physician: Chichi Quinones Dictated By: Lacey Lee MD Dictated Date/Time: 06/18/20 8:20 am Reviewed By: Lacey Lee MD Signed By: Lacey Lee MD Signed Date/Time: 06/18/20 8:20 am Transcribed By: DENIA Transcribed Date/Time: 06/18/20 8:17 am Vital Signs Most recent to oldest [Reference Range]: 1 2 3 Height 166 cm (06/27/20 8:12 PM) 166 cm (06/27/20 4:53 PM) 166 cm (06/27/20 11:45 AM) Weight 148.8 kg (06/27/20 8:01 AM) 148 kg (06/18/20 3:53 PM) 151.6 kg (06/18/20 2:13 PM) Oxygen Saturation [94-100 %] 94 % (06/28/20 6:36 AM) 100 % (06/27/20 11:43 PM) 98 % (06/27/20 8:12 PM) Pulse Rate [55-90 bpm] 75 bpm (06/28/20 8:30 AM) 73 bpm (06/28/20 6:36 AM) 81 bpm (06/27/20 11:43 PM) Body Mass Index [18.5-24.99] 53.71 *>HHI* (06/18/20 3:53 PM) Blood Pressure [90-138/55-84 mm Hg] 133/86mm Hg (06/28/20 8:30 AM) 133/86mm Hg (06/28/20 6:36 AM) 132/75mm Hg (06/27/20 11:43 PM) Respiratory Rate [16-30 br/min] 16 br/min (06/28/20 6:36 AM) 20 br/min (06/28/20 6:05 AM) 19 br/min (06/27/20 11:43 PM) Temperature [96.8-100.4 DegF] 97.4 DegF (06/28/20 6:36 AM) 97.8 DegF (06/27/20 11:43 PM) 97.4 DegF (06/27/20 8:12 PM) Liters per Minute 0 L/min (06/28/20 6:36 AM) 0 L/min (06/27/20 8:12 PM) 0 L/min (06/26/20 4:00 PM) Mode of Delivery (Oxygen) Room air (06/28/20 6:36 AM) Room air (06/27/20 11:43 PM) Room air (06/27/20 8:12 PM) Blood pressure sites Arm, left (06/28/20 6:36 AM) Arm, left (06/27/20 11:43 PM) Arm, left (06/27/20 8:12 PM) Temperature Route Tympanic (06/28/20 6:36 AM) Temporal (06/27/20 11:43 PM) Temporal (06/27/20 8:12 PM) Dry Weight 148 kg (06/18/20 3:53 PM) Weight Obtained Via Bed scale (06/18/20 2:13 PM) Social History Social History Type Response Smoking Status 5-9 cigarettes (betw een 1/4 to 1/2 pack)/day in last 30 days entered on: 11/09/18 Sex
--- OUTSIDE RECORDS SUMMARY | 2023-11-12 16:25 | XMS_ITS | Continuity of Care Document ---
Author Organization [facility] Address [address] [place] [address]- Care Team Providers Care Acting Professor Name Role Phone Félix POSADAS, Faith Trent Primary [id number] - [facility]/21 [facility] [address] [place] [address]- Attending Physician: Pastor Luna MD Admitting Physician: Pastor Luna MD Referring Physician: Faith Heard MD Allergies, Adverse Reactions, Alerts Substance Reaction [...] 12/11/18 15:23:32 EDT, Route to Pharmacy Electronically, [id number], [facility] Start Date: 12/11/18 Stop Date: 04/10/19 [...]
--- OUTSIDE RECORDS SUMMARY | 2023-11-12 16:25 | XMS_ITS | Continuity of Care Document ---
Author Organization [facility] Address [address], [address], [address] [place] [phone]- Care Team Providers Care Ad Setter Name Role Phone Félix POSADAS, Faith Trent Primary Care Physician Encounter [facility] [place] Date(s): 08/12/20 - 08/19/20 [facility] [address], [address], [address] [place] [id number] Attending Physician: Elina Pollock MD Allergies, Adverse Reactions, Alerts Substance Reaction [...] 12/11/18 15:23:32 EDT, Route to Pharmacy Electronically, [id number], [facility] Start Date: 12/11/18 Stop Date: [...]
--- OUTSIDE RECORDS SUMMARY | 2023-11-12 16:25 | XMS_ITS | Continuity of Care Document ---
Author Organization [facility] ter Address [address] [place] [address]- Care Team Providers Care Cement Conveyor Operator Name Role Phone Félix POSADAS, Faith Trent Primary Care Physician [place] [facility] [place] Date(s): 06/27/19 - 06/27/[address] [address]- [facility] Attending Physician: Jamari Urias Allergies, Adverse Reactions, Alerts Substance Reaction Severity [...] Refills, Maintenance, Tablet, Route to Pharmacy Electronically, [id number], [facility] 3 Start Date: 11/11/18 Status: Ordered Coreg 6.25 mg oral tablet 6.25 mg, By Mouth, 2 times a day, # 60 tablet, Refills 3, Tot. Refills 3, Maintenance, 12/11/18 15:23:32 EDT, Route to Pharmacy Electronically, [id number], [facility] Start Date: 12/11/18 Stop Date: [...] 11/11/18 15:29:55 EDT, Route to Pharmacy Electronically, [id number], [facility] Start Date: 11/11/18 Status: Ordered Lantus [...]
--- OUTSIDE RECORDS SUMMARY | 2023-11-12 16:25 | XMS_ITS | Continuity of Care Document ---
Author Organization [facility] Address [address] [facility], 3r d Floor, [address] [place] [phone]- Care Team Providers Care Rn Clinical Research Name Role Phone Félix POSADAS, Faith Trent Primary Care Physician Encounter [facility] [place] Date(s): 10/16/20 - 10/23/20 [facility] [address], [address], [address] [place] [id number] Attending Physician: Liz Jensen MD, Elina Allergies, Adverse Reactions, Alerts Substance Reaction Severity [...] 12/11/18 15:23:32 EDT, Route to Pharmacy Electronically, [id number], [facility] 3 Start Date: 12/11/18 Stop Date: [...]
--- OUTSIDE RECORDS SUMMARY | 2023-11-12 16:25 | XMS_ITS | Continuity of Care Document ---
Author Organization [facility] Address [address] [facility], 3r d Floor, [address] [place] [phone]- Care Team Providers Care Porcelain Buildup Assistant Name Role Phone Félix POSADAS, Faith Trent Primary Care Physician Encounter [facility] [place] Date(s): 10/16/20 - 11/15/20 [facility] [address], [address], [address] [place] [id number] Attending Physician: Admtr, Lonnie8 Admitting Physician: Admtr, Ar8 Referring Physician: Admtr, Ar8 Allergies, Adverse Reactions, Alerts Substance Reaction Severity [...] 12/11/18 15:23:32 EDT, Route to Pharmacy Electronically, [id number], [facility] 3 Start Date: 12/11/18 Stop Date: [...]
--- OUTSIDE RECORDS SUMMARY | 2023-11-12 16:25 | XMS_ITS | Continuity of Care Document ---
Author Organization [facility] Address [address] [place] [address]- Care Team Providers Care Chopper Gun Operator Name Role Phone Faith Heard MD Primary Care Physician En[place] [facility] [place] Date(s): 03/06/21 - 04/05/21 [facility] [address] [place] [phone]- Attending Physician: Ron Chavis Admitting Physician: Ron Chavis Referring Physician: Ron Chavis Allergies, Adverse Reactions, Alerts Substance Reaction Severity [...] 12/11/18 15:23:32 EDT, Route to Pharmacy Electronically, [id number], [facility] [...]
--- OUTSIDE RECORDS SUMMARY | 2023-11-12 16:25 | XMS_ITS | Continuity of Care Document ---
Author Organization [facility] ter Address [address] [place] [address]- Care Team Providers Care Guide Dog Mobility Instructor Name Role Phone Faith Heard MD Primary Care Physician [place] [facility] [place] 11/16/20 - 11/18/[address] [address]- Encounter Diagnosis Chest pain(Final) - 11/17/20 Discharge Disposition: A-D/C Home Attending Physician: Maude Palm MD Admitting Physician: Giselle White DO Referring Physician: Not on Staff, Referring MD [...] 12/11/18 15:23:32 EDT, Route to Pharmacy Electronically, [id number], [facility] Start Date: 12/11/18 Stop Date: [...] Exam Date Time Procedure Performing Provider Status 11/18/20 1:38 PM Esophagus Barium Swallow Telma Tian; Disha (Verified) Notes: (Esophagus Barium Swallow) Reason For Exam: Dysphagia RESULT: Esophagus Barium Swallow Esophagus Barium Swallow HISTORY: Dysphagia. COMPARISONS: Chest radiograph 11/16/2020. Modified barium swallow 06/21/2020. CT 06/18/2020. FLUOROSCOPY TIME: 2.6 minutes. DAP: 2235.9 uGym2 TECHNIQUE: Barium contrast esophagram was performed. FINDINGS: Diabetes Educator view: No free air. Normal bowel gas pattern. No abnormal calcifications. Swallow: Initial swallow demonstrates no laryngeal penetration or aspiration. Normal oral and pharyngeal phase. Esophagus: Normal in contour and mucosal appearance. Normal peristalsis is interrupted by many tertiary (non-propulsive) contractions occurring in the distal esophagus. No hiatus hernia. Moderate gastroesophageal reflux. 13mm barium tablet passes readily into the stomach. IMPRESSION: Nonspecific esophageal motility disorder, differential diagnosis includes secondary esophageal dysmotility from diabetic autonomic neuropathy or less likely but possible mild diffuse esophageal spasm. I have personally reviewed the images and I agree with this report. WSN: [id number] Ordering Physician: Travis Gutiérrez Dictated By: Bob Hurd MD Dictated Date/Time: 11/18/20 2:12 pm Reviewed By: Seferino Amaya MD, V Signed By: Seferino Amaya MD, V Signed Date/Time: 11/18/20 2:17 pm Transcribed By: DENIA Transcribed Date/Time: 11/18/20 2:07 pm * Exam Date Time Procedure Performing Provider Status 11/17/20 12:05 AM Chest 2 Views Frontal and Lat Meredith Patel; Auth (Verified) Notes: (Chest 2 Views Frontal and Lat) Reason For Exam: Chest Pain;Other: RESULT: Chest 2 Views Frontal and Lat Chest 2 Views Frontal and Lat Hx of Present Illness: chest pain x 2 days; Reason: Other:; Chest Pain; Clinical Question(s): Other: COMPARISON: Multiple prior chest x-rays, the most recent of which is dated 06/25/2020. FINDINGS: LINES AND TUBES: None. LUNGS AND PLEURA: Clear lungs. Normal pulmonary vascularity. No pleural effusion. No pneumothorax. HEART, MEDIASTINUM AND CARIE: Heart is normal in size. Normal upper mediastinal and hilar contour. BONES AND SOFT TISSUES: No acute abnormality. Degenerative changes seen in the spine. IMPRESSION: No acute pulmonary process. WSN: [id number] Ordering Physician: Yuri Guzmán Dictated By: Lacey Lee MD Dictated Date/Time: 11/17/20 8:42 am Reviewed By: Lacey Lee MD Signed By: Lacey Lee MD Signed Date/Time: 11/17/20 8:42 am Transcribed By: DENIA Transcribed Date/Time: 11/17/20 8:41 am Vital Signs Most recent to oldest [Reference Range]: 1 2 3 Oxygen Saturation [94-100 %] 97 % (11/18/20 3:00 PM) 97 % (11/18/20 11:00 AM) 100 % (11/18/20 7:59 AM) Pulse Rate [55-90 bpm] 82 bpm (11/18/20 3:00 PM) 77 bpm (11/18/20 11:00 AM) 76 bpm (11/18/20 7:59 AM) Blood Pressure [90-138/55-84 mm Hg] 125/62mm Hg (11/18/20 3:00 PM) 137/88mm Hg (7/12/21 11:00 AM) 144/72mm Hg *H* (11/18/20 7:59 AM) Respiratory Rate [16-30 br/min] 18 br/min (11/18/20 3:00 PM) 18 br/min (11/18/20 11:00 AM) 18 br/min (11/18/20 10:59 AM) Temperature [96.8-100.4 DegF] 98.7 DegF (11/18/20 3:00 PM) 98.5 DegF (11/18/20 11:00 AM) 98.4 DegF (11/18/20 7:59 AM) Mode of Delivery (Oxygen) Room air (11/18/20 3:00 PM) Room air (11/18/20 11:00 AM) Room air (11/18/20 7:59 AM) Blood pressure sites Arm, left (11/18/20 3:00 PM) Arm, left (11/18/20 11:00 AM) Arm, left (11/18/20 7:59 AM) Temperature Route Oral (11/18/20 3:00 PM) Oral (11/18/20 11:00 AM) Oral (11/18/20 7:59 AM) Social History Social History Type Response Smoking Status 5-9 cigarettes (betw een 1/4 to 1/2 pack)/day in last 30 days entered on: 11/09/18 Sex
--- OUTSIDE RECORDS SUMMARY | 2023-11-12 16:25 | XMS_ITS | Continuity of Care Document ---
Author Organization [facility] Address [address] [place] [address]- Care Team Providers Care Bearingizer Name Role Phone Faith Heard MD Primary Care Physician [place] [facility] [place] - 11/14/[address] [address] Attending Physician: Ron Chavis Admitting Physician: AdmRon sierra Referring Physician: Admtr, Lonnie8 Allergies, Adverse Reactions, Alerts Substance Reaction Severity [...] 12/11/18 15:23:32 EDT, Route to Pharmacy Electronically, [id number], [facility] Start Date: 12/11/18 Stop Date: [...]
--- OUTSIDE RECORDS SUMMARY | 2023-11-12 16:25 | XMS_ITS | Continuity of Care Document ---
Author Organization [facility] ter Address [address] [place] [address]- Care Team Providers Care Client Onboarding Analyst Name Role Phone Faith Heard MD Primary Care Physician Encounter [facility] [place] Date(s): 10/14/21 - 12/18/[address] [address] Attending Physician: Janes Rice MD Admitting Physician: Janes Rice MD Referring Physician: Salo Shankar MD Allergies, Adverse Reactions, Alerts Substance Reaction [...] 12/11/18 15:23:32 EDT, Route to Pharmacy Electronically, [id number], [facility] Start Date: 12/11/18 Stop [...]
--- OUTSIDE RECORDS SUMMARY | 2023-11-12 16:25 | XMS_ITS | Continuity of Care Document ---
Author Organization [facility] Address [address] [place] [address]- Care Team Providers Care Cathead Operator Name Role Phone Félix POSADAS, Faith Trent Primary Care Physician [id number] Date(s): 08/25/22 - 10/04/[address] [address] Attending Physician: Silvia Flores MD Admitting Physician: Silvia Flores MD Referring Physician: Silvia Flores MD Allergies, Adverse Reactions, Alerts Substance Reaction [...] 12/11/18 15:23:32 EDT, Route to Pharmacy Electronically, [id number], [facility] 3 Start Date: 12/11/18 Stop [...] Date: 06/28/20 Status: Ordered Problem List Condition Confirmation Course Effective Dates Status Health [facility] Informant Chest pain Confirmed Active Severe obesity Confirmed Active Social History Social History Type Response Smoking Status 5-9 cigarettes (betw een 1/4 to 1/2 pack)/day in last 30 days entered on: 11/09/18 Sex Patient Care team information Care Team Personnel Name: Kristen Jacobson RN Position: S RN Member Role: Primary Care Nurse Name: John Park RN Position: Ksenia PATE RN Member Role: Primary Care Nurse Name: Mickie Shields RN Position: S RN Member Role: Primary Care Nurse Care Team Related Persons Name: SOURAV TONY Address: [address] [address] Name: MIGEL JACOBS Name: CULLEN JORGENSEN
--- OUTSIDE RECORDS SUMMARY | 2023-11-12 16:25 | XMS_ITS | Continuity of Care Document ---
Author Organization [facility] Address [address] [place] [address]- Care Team Providers Care Compounding Assistant Name Role Phone Félix POSADAS, Faith Trent Primary Care Physician En[place] [facility] [place] Date(s): 09/04/22 - 10/04/[address] [address]- Attending Physician: Ron Chavis Admitting Physician: AdmtrRon Referring Physician: Admtr Ar8 Allergies, Adverse Reactions, Alerts Substance Reaction [...] 12/11/18 15:23:32 EDT, Route to Pharmacy Electronically, [id number], [facility] Start Date: 12/11/18 Stop Date: [...] Team Related Persons Name: SOURAV TONY Address: [address] [address] Name: MIGEL JACOBS Name: CULLNE JORGENSEN
--- OUTSIDE RECORDS SUMMARY | 2023-11-12 16:25 | XMS_ITS | Continuity of Care Document ---
Author Organization [facility] Address [address] [place] [address]- Care Team Providers Care Planning Advisor Name Role Phone Félix POSADAS, Faith Trent Primary Care Physician Encounter [facility] [place] Date(s): 01/21/23 - 02/20/[address] [address]- Attending Physician: AdmRon sierra Admitting Physician: AdmtrRon Referring Physician: Admtr Ar8 [...] Recorded Hepatitis A Adult Vaccine 01/12/03 Recorded Medications amitriptyline 50 mg oral tablet 1 [...] 12/11/18 15:23:32 EDT, Route to Pharmacy Electronically, [id number], [facility] Start Date: 12/11/18 Stop [...] RN Member Role: Primary Care Nurse Name: Yun Berger RN Position: S RN Member Role: Primary Care Nurse Name: John Park RN Position: S RN Member Role: Primary Care Nurse Name: Radha Albarran RN Position: S RN Member Role: Primary Care Nurse Care Team Related Persons Name: TONY BENJAMIN Address: [address] [address] Name: MIGEL JACOBS Name: CULLEN JORGENSEN
--- OUTSIDE RECORDS SUMMARY | 2023-11-12 16:25 | XMS_ITS | Continuity of Care Document ---
Author Organization [facility] Address [address] [place] [address]- Care Team Providers Care Tire Tester Name Role Phone Félix POSADAS, Faith Trent Primary Care Physician [id number] Date(s): 01/12/23 - 02/20/[address] [address] Attending Physician: Silvia Flores MD Admitting Physician: [...] 12/11/18 15:23:32 EDT, Route to Pharmacy Electronically, [id number], [facility] 3 Start Date: 12/11/18 Stop Date: [...] Care Nurse Name: John Park RN Position: [facility] RN Member Role: Primary Care Nurse Name: Radha Albarran RN Position: S RN Member Role: Primary Care Nurse Care Team Related Persons Name: HANNA BENJAMINO Address: [address] [address] Name: MIGEL JACOBS Name: CULLEN JORGENSEN
[2023-11-12] MEDS: Piperacillin Sodium/Tazobactam 3.375 GM in 0.9 % Sodium Chloride 50 ML IV (16:26)
[2023-11-12] MEDS: Acetaminophen 1,000 MG/100 ML PIGGYBACK 400 MG IV (16:26)
--- OUTSIDE RECORDS SUMMARY | 2023-11-12 16:26 | XMS_ITS | Patient Health Record ---
Author Organization [facility] Address [address] [place], [place] [address] Care Team Providers Care Byproducts Pump Operator Name Role Phone [facility] Primary Care Provider Ariana Ramos Unavailable [phone] ALLERGIES Allergen (clinical drug ingredient) Drug/Non Drug Allergy documented on EMR Reaction Allergy Type Onset Date Status penicillin rash Drug Allergy Active REASON FOR REFERRAL No Information MEDICATIONS Medication SIG (Take, Route, Frequency, Duration) Notes Start Date End Date Status insulin regular human recombinant 100 units/mL sliding scale subcutaneously 2 times a day Active metFORMIN 850 mg 2tabs am 1 tab hs or ally in am 1 tab pm Active Actos 15 mg 1 tab(s) orally once a day Active Levemir 100 units/mL 58 units subcutaneo usly 2 times a day Active lisinopril 20 mg 1 tab(s) orally once a day for 30 day(s) Active Pepcid 20 mg 1 tab(s) orally QD f or 30 day(s) Active simvastatin 20 mg 1 tab(s) orally once a day (at bedtime) for 30 day(s) Activ e IMMUNIZATIONS Vaccine Route Administration Date Status Comme nts PPD positive Unknown 12/02/1993 Administered Hepatitis A Unknown 07/15/2004 Administered 1st dose Hepatitis A Unknown 05/31/2008 Administered 2nd-final Pneumococcal Unknown 06/18/2008 Administered Tdap Unknown 06/18/2008 Administered SOCIAL HISTORY Sex Assigned At : Social History Observation Description Sex Assigned At Unknown PROBLEMS Problem Type ICD Code Onset Dates Problem Status W/U Status Risk SNOMED Code Notes Problem Diabetes mellitus type II (250.00) Active confirmed Diabetes me llitus type II (03436010) Problem Alcohol abuse, 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) Active confirmed Nondepend ent alcohol abuse in remission (196984430) Problem Cannabis abuse, in remission (305.23) Active confirmed Nondepend ent cannabis abuse in remission (163054583) Problem Opioid abuse, in remission (305.53) Active confirmed Nondepend ent opioid abuse in remission (587854639) Problem Cocaine abuse, in remission (305.63) Active confirmed Nondepend ent cocaine abuse in remission (074907159) Problem Hypertension (401.9) Active confirmed H ypertension (04136923) Problem Hypercholesterolemia (272.0) Active confirmed Hypercholestero lemia (95445209) Problem Body Mass Index 50.0-59.9, adult (V85.43) Active confirmed Body mass index 40+ - morbidly obese (178824362) Problem Sheltered homelessness (Z59.01) Active confirmed Shelte red homelessness (971580277974850) PLAN OF TREATMENT Pending Test Test Name Order Date T-spot 12/01/2013 Insurance Providers Payer Name Payer Address Payer Phone Subscriber Number Group Number Insured Name Patient Relationship to Insured Coverage Start Date Coverage End Date [place] C3 [address] [place], [place] [id number] [phone] [id number] David Russ Self - patient is the insured 1 MEDICAL (GENERAL) HISTORY Medical History History ICD Code episodes of tachycardia diabetes hypertension hepatitis B A1C=03/28/08-11.0%, 04/30/08 -10.1%, 06/12/08--10.5%, 01/02/09 -9.8%, according to [facility] records.
[2023-11-12] MEDS: vancomycin/NS 2,000 MG/500 ML PLAST..BAG 250 MG IV (16:27)
[2023-11-12] MEDS: 0.9 % Sodium Chloride 1,000 ML 999 ML IV (16:29)
[2023-11-12] MEDS: Diphth,Pertus(ACell),Tet Adult 0.5 ML SYRINGE IM (16:31)
[2023-11-12 16:46] LABS: Lactic Acid 1.9 mmol/L (0.5-2.0)
[2023-11-12 16:49] LABS: Anion Gap 13 (12-20); Blood Urea Nitrogen 9 mg/dL (9-16); C Reactive Protein 26.79 mg/dL (< or = 0.50); Carbon Dioxide 29 mmol/L (22-29); Chloride 97 mmol/L (96-108); Creatinine Clr Calc Pharmacy 98.9; Estimated Glomerular Filt Rate > 60; Glucose Random 142 mg/dL (60-115); Lipase 21 U/L (8-78); Sodium 136 mmol/L (135-145)
--- NOTE | 2023-11-12 17:01 | PM.CNOR ---
History of Present Illness HPI Consult date: 11/12/23 <AISLINN Tijerina - Last Filed: 11/12/23 17:22> Chief complaint: Hand infection <AISLINN Tijerina - Last Filed: 11/12/23 17:22> Narrative: Patient is a 58-year-old male with history of IVDA who presents for evaluation of open wound and swelling of his left hand. The patient reports that, 2 days ago, he was working in his of an, when a piece of metal from the door of the oven stabbed into his hand. He reports that the wound and swelling have only worsened since this time. Patient reports pain and swelling throughout his left hand. The patient reports that he is unable to flex his fingers due to pain. Of note, patient reports that he snorted 3 bags of heroin prior to presenting to the hospital due to nerves, and he repeatedly falls asleep during patient interview. <AISLINN Tijerina - Last Filed: 11/12/23 17:22> Review of Systems Review of Systems: Yes all other systems are reviewed and are negative <AISLINN Tijerina - Last Filed: 11/12/23 17:22> [facility] Past Medical History Medical History: Medical History Type 2 diabetes mellitus with unspecified complications Essential hypertension Unstable angina History of CVA (cerebrovascular accident) Diabetes HTN (hypertension) Morbid obesity Chest pain <AISLINN Tijerina - Last Filed: 11/12/23 17:22> Family History Family History: Family History Other CAD (coronary artery disease) Diabetes HTN (hypertension) <AISLINN Tijerina - Last Filed: 11/12/23 17:22> Surgical History Surgical History: Surgical History No pertinent past surgical history <AISLINN Tijerina - Last Filed: 11/12/23 17:22> Social History Social History: Social History Household Members: None Housing: Apartment Do you presently have visiting nurse or other home services: Yes (VNA) Patient Tobacco Use Status: Current everyday Tobacco user Tobacco use type: Cigarette e-Cigarette/Vaping Use: Never Used Second Hand Smoke Exposure: No Substance Use Type: Heroin service: No Current occupational status: unemployed <AISLINN Tijerina - Last Filed: 11/12/23 17:22> Meds Allergies/Adverse reactions: Allergies Allergy/AdvReac Type Severity Reaction Status Date / Time Penicillins [PCN] Allergy Intermediate HIVES Verified 11/12/23 15:44 <AISLINN Tijerina - Last Filed: 11/12/23 17:22> Active Medications: Current Medications Vancomycin HCl (Vancomycin/Ns) 2,000 mg in 500 mls @ 250 mls/hr IV ONCE ONE Stop: 11/12/23 17:59 Last Admin: 11/12/23 16:27 Dose: 250 mls/hr <AISLINN Tijerina - Last Filed: 11/12/23 17:22> Home medications: Home Medications ?Medication ?Instructions ?Recorded ?Confirmed ?Last Taken ?Type aspirin 81 mg tablet,delayed 81 mg PO DAILY 01/18/23 11/13/23 Unknown History release docusate sodium 100 mg capsule 100 - 200 mg PO BEDTIME PRN 01/18/23 11/13/23 Unknown History constipation insulin glargine 100 unit/mL (3 30 unit subcut BID 01/18/23 11/13/23 Unknown History mL) subcutaneous pen (Lantus Solostar U-100 Insulin) ammonium lactate 12 % topical cream 1 appl topical DAILY PRN Dry Skin 11/13/23 11/13/23 Unknown History atorvastatin 80 mg tablet 80 mg PO BEDTIME 11/13/23 11/13/23 Unknown History docusate sodium 100 mg capsule 200 mg PO BEDTIME PRN Constipation 11/13/23 11/13/23 Unknown History (Colace) gabapentin 300 mg capsule 300 mg PO TID 11/13/23 11/13/23 Unknown History hydroxyzine HCl 50 mg tablet 50 mg PO BID PRN Anxiety 11/13/23 11/13/23 Unknown History losartan 50 mg tablet 50 mg PO DAILY 11/13/23 11/13/23 Unknown History metformin 500 mg tablet,extended 500 mg PO BID 11/13/23 11/13/23 Unknown History release 24 hr polyethylene glycol 3350 17 17 g PO DAILY PRN Constipation 11/13/23 11/13/23 Unknown History gram/dose oral powder (Miralax) tamsulosin 0.4 mg capsule 0.4 mg PO DAILY 11/13/23 11/13/23 Unknown History <AISLINN Tijerina - Last Filed: 11/12/23 17:22> Physical Exam Vital Signs: Vital Signs: Last Vital Signs Pulse 80 11/12/23 15:36 Resp 19 11/12/23 15:36 Pulse Ox 98 11/12/23 15:36 O2 Del Method Nasal Cannula 11/12/23 15:36 Oxygen Flow Rate 2 11/12/23 15:36 BMI result Body Mass Index 36.3 <AISLINN Tijerina - Last Filed: 11/12/23 17:22> Const: Other: Patient is in no acute distress, however he repeatedly fell asleep during the course of the patient interview and physical exam. <AISLINN Tijerina Last Filed: 11/12/23 17:22> HEENT: Head: Yes normocephalic and Yes atraumatic <AISLINN Tijerina - Last Filed: 11/12/23 17:22> Resp: Effort & Inspection: normal respiratory effort and able to speak in complete sentences <AISLINN Tijerina Last Filed: 11/12/23 17:22> Cardio: Jugular venous distension: no JVD <AISLINN Tijerina Last Filed: 11/12/23 17:22> Neuro: General: gait normal <AISLINN Tijerina Last Filed: 11/12/23 17:22> Cognition (Neuro): normal cognition <AISLINN Tijerina Last Filed: 11/12/23 17:22> Extrem: Other: Pain: Patient reports diffuse, severe pain to palpation and manipulation throughout the left hand. ROM: Patient is unable to actively flex or extend the left fingers at this time, however smooth passive flexion of the fingers is performed without difficulty. Skin: Open wound noted on the dorsal surface of the MCP joint of the left middle finger, extending into the webspace between the middle and ring fingers and the dorsal hand. General: Diffuse erythema and erythema of the left hand, particularly in the dorsal aspect of the hand, and in the 1st web space. Erythema and edema noted to be extending into the left dorsal wrist and forearm. No active drainage from wound at this time. <AISLINN Tijerina Last Filed: 11/12/23 17:22> Psych: Appearance: grossly normal <AISLINN Tijerina Last Filed: 11/12/23 17:22> Mental Status: mental status grossly normal <AISLINN Tijerina Last Filed: 11/12/23 17:22> Results Labs Result Diagrams: 11/15/23 07:29 11/15/23 07:29 <AISLNIN Tijerina Last Filed: 11/12/23 17:22> Labs: Abnormal lab results 11/12/23 Range/Units 16:16 Potassium 3.0 L D (3.3-5.1) mmol/L Random Glucose 142 H (60-115) mg/dL C-Reactive Protein 26.79 H (< or = 0.50) mg/dL All other labs normal. <AISLINN Tijerina Last Filed: 11/12/23 17:22> Assessment and Plan (1) Abscess of dorsum of left hand: Status: Acute <AISLINN Tijerina Last Filed: 11/12/23 17:22> 1. Dorsal left hand abscess At this time, patient should be admitted to medicine for IV antibiotic therapy Elevation and warm water soaks of the left hand to promote improvement in edema and/or potential spontaneous drainage NPO at midnight for potential surgery tomorrow Patient will be re-evaluated by Orthopedics in a.m. <AISLINN Tijerina Last Filed: 11/12/23 17:22> Procedures Date of Service Date of Service: 11/12/23 <AISLINN Tijerina - Last Filed: 11/12/23 17:22> 11/15/23 <Leonel Antoine PA-C - Last Filed: 11/15/23 08:43>
[2023-11-12 17:09] LABS: Magnesium 1.7 mg/dL (1.6-2.6)
[2023-11-12 17:25] LABS: Erythrocyte Sedimentation Rate 77 MM/HR (0-15)
[2023-11-12 17:31] LABS: Basophils Absolute Auto 0.1 X10*3/uL (0.0-0.2); Basophils Percent Auto 0.3 % (0-2); Eosinophils Percent Auto 0.2 % (0-4); Hematocrit 35.8 % (42.0-52.0); Hemoglobin 11.7 g/dl (14.0-18.0); Imm Gran Abs Auto 0.34 X10*3/uL (0.00-0.03); Imm Gran Pct Auto 1.3 % (0.0-0.4); Lymphocytes Percent Auto 7.8 % (20-40); MANUAL DIFF FLAG SCAN; Mean Corpuscular HGB Conc 32.7 g/dl (31.0-36.0); Mean Corpuscular Hemoglobin 28.1 pg (27.0-33.0); Mean Corpuscular Volume 86.1 fL (80.0-98.0); Mean Platelet Volume 10.5 fL (9.4-12.4); Monocytes Absolute Auto 1.5 X10*3/uL (0.1-1.2); Monocytes Percent Auto 5.9 % (2-11); Neutrophils Absolute Auto 21.4 x10*3/uL (2.0-8.3); Neutrophils Percent Auto 84.5 % (45-73); Platelet Count 234 X10*3/uL (160-400); Red Blood Count 4.16 X10*6/uL (4.60-5.80); Red Cell Distribution Width 14.2 % (11.0-16.0); SCAN SMEAR FLAG 1; White Blood Count 25.3 X10*3/uL (4.8-10.8)
[2023-11-12 17:56] LABS: SLIDE REVIEW VERIFIED
--- NOTE | 2023-11-12 18:59 | PM.IMHP ---
History of Present Illness Date of Service: 11/12/23 Chief Complaint: hand infection This is a 58-year-old male with pertinent history of polysubstance IV drug use disorder, congestive heart failure with reduced ejection fraction, history of AFib cardiac arrest in 10/27/2022, insulin-dependent diabetes mellitus, hypertension, mixed hyperlipidemia who presents to the emergency department for concerns of hand infection. Patient is Bulgarian speaking and history obtained with the help of multi township assessor. Patient states that about 2 days prior to presentation, metal from the over door stabbed his head. Since then, patient has had worsening swelling, pain throughout his left hand. Patient does endorse snoring 3 bags of heroin prior to coming to the ER. Patient is falling asleep during interview. States he is unable to make a fist due to the pain and swelling. Also noticed redness and warmth. Admits fevers and chills but denies nausea, vomiting, abdominal pain, shortness of breath, changes in urinary or bowel habits. In the emergency department, patient was found to be septic and orthopedic surgery evaluated the patient for left hand abscess who recommended admission to Medicine and likely procedure in a.m.. Review of Systems Constitutional: Constitutional: Reports chills and Reports fever(s) Cardiovascular: Cardiovascular: Reports no additional cardiovascular complaints Respiratory: Respiratory: Reports no additional respiratory complaints Gastrointestinal: Gastrointestinal: Reports no additional gastrointestinal complaints Genitourinary: Genitourinary: Reports no additional male genitourinary complaints Musculoskeletal: Musculoskeletal: Reports arthralgias and Reports joint swelling [facility] Medical History Type 2 diabetes mellitus with unspecified complications Essential hypertension Unstable angina History of CVA (cerebrovascular accident) Diabetes HTN (hypertension) Morbid obesity Chest pain Family History Other CAD (coronary artery disease) Diabetes HTN (hypertension) Surgical History No pertinent past surgical history Social History Household Members: None Housing: Apartment Do you presently have visiting nurse or other home services: Yes Patient Tobacco Use Status: Tobacco use Unknown Tobacco use type: Cigarette Substance Use Type: Crack/Cocaine Advance Directives: No Advance Directives Information Provided: No service: No Current occupational status: unemployed Meds Allergies Allergy/AdvReac Type Severity Reaction Status Date / Time Penicillins [PCN] Allergy Intermediate HIVES Verified 11/12/23 15:44 Home Medications ?Medication ?Instructions ?Recorded ?Confirmed ?Last Taken ?Type aspirin 81 mg tablet,delayed 81 mg PO QAM 01/18/23 01/18/23 Unknown History release atorvastatin 40 mg tablet 40 mg PO BEDTIME 01/18/23 01/18/23 Unknown History chlorthalidone 25 mg tablet 25 mg PO DAILY 01/18/23 01/18/23 Unknown History docusate sodium 100 mg capsule 100 - 200 mg PO BEDTIME PRN 01/18/23 01/18/23 Unknown History constipation furosemide 20 mg tablet 20 mg PO DAILY 01/18/23 01/18/23 Unknown History insulin glargine 100 unit/mL (3 30 unit subcut BID 01/18/23 01/18/23 Unknown History mL) subcutaneous pen (Lantus Solostar U-100 Insulin) metformin 1,000 mg tablet 1,000 mg PO BID 01/18/23 01/18/23 Unknown History Physical Exam Vital Signs and Narrative: Vital Signs: Last Vital Signs Temp 100.5 F H 11/12/23 18:20 Pulse 88 11/12/23 18:20 Resp 17 11/12/23 17:10 BP 125/51 L 11/12/23 18:20 Pulse Ox 99 11/12/23 17:10 O2 Del Method Nasal Cannula 11/12/23 17:21 O2 Flow Rate 2 11/12/23 17:21 Oxygen Flow Rate 2 11/12/23 15:36 BMI result Body Mass Index 36.3 Middle-aged male lying in bed in no distress Neck supple, no JVD Regular rate and rhythm, S1-S2 heard Regular breath sounds bilaterally, no wheezing or crackles appreciated Abdomen soft nontender, no guarding, no rigidity Patient is lethargic but awakens to verbal stimulus, falls asleep mid conversation, is oriented to place, person and time ; no focal motor weakness Psych: Drowsy Left hand with swelling, erythema and warmth as pictured below Skin: Other: Results Labs 11/12/23 16:16 11/12/23 16:16 Labs: Laboratory Results - last 24 hr 11/12/23 16:16 MCV 86.1 MCH 28.1 MCHC 32.7 RDW 14.2 Plt Count 234 MPV 10.5 Immature Gran % (Auto) 1.3 H Neut % (Auto) 84.5 H Lymph % (Auto) 7.8 L [place] % (Auto) 5.9 Eos % (Auto) 0.2 Baso % (Auto) 0.3 Lymph # (Auto) 2.0 [place] # (Auto) 1.5 H Eos # (Auto) 0.0 Baso # (Auto) 0.1 Abs Immat Gran (auto) 0.34 H Absolute Neuts (auto) 21.4 H Absolute Nucleated RBC 0.000 Nucleated RBC % (auto) 0.0 Smear Tech's Comments VERIFIED ESR 77 H Anion Gap 13 Estim Creat Clear Calc 98.9 Estimated GFR > 60 Random Glucose 142 H Lactic Acid 1.9 Calcium 9.0 Magnesium 1.7 C-Reactive Protein 26.79 H Lipase 21 Imaging Radiologist's Impressions: Impressions Hand/Wrist X-Ray 11/12/23 16:39 IMPRESSION: Significant soft tissue edema Assessment and Plan (1) Abscess of dorsum of left hand: Status: Acute (2) Toxic encephalopathy: Status: Acute Plan This is a 58-year-old male with pertinent history of polysubstance IV drug use disorder, congestive heart failure with reduced ejection fraction, history of AFib cardiac arrest in 10/27/2022, insulin-dependent diabetes mellitus, hypertension, mixed hyperlipidemia who presents to the emergency department for concerns of hand infection. #. Sepsis due to left hand abscess: Resuscitated with IV crystalloids. Initiating IV vancomycin and Zosyn. Lactic acid and blood culture obtained. Evaluated by Orthopedic surgery>> potential surgery tomorrow. Will keep patient NPO at midnight. #. Acute toxic encephalopathy due to opioid use #. Polysubstance use disorder: Consulting Addiction Team. Monitor for withdrawal. COWS q shift #. Hypokalemia: Repleted #. Insulin-dependent diabetes mellitus: Reduce basal insulin as patient will be NPO. Initiating Accu-Cheks with sliding scale insulin #. Congestive heart failure with reduced ejection fraction: No decompensation during admission. Patient on spironolactone, ARB, Lasix. Not on BB due to cocaine use #. Hypertension: Continue home antihypertensives #. Mixed hyperlipidemia: On statin #. CAD: On aspirin and statin Med rec pending DVT prophylaxis: Mechanical Full code Admit as inpatient and will require two night minimum hospital stay for IV antibiotics (as above), which is not possible in a lesser acute setting. Quality Stroke Does the patient have a stroke diagnosis?: No VTE Prior VTE?: No VTE Risk Level:: Medical - moderate - high VTE Device Contraindication: Treatment Not Indicated VTE Drug Contraindication: N/A - Med Ordered
--- NOTE | 2023-11-12 19:14 | PC.NURSE ---
this rn assumed care of pt, pt resting in stretcher, no acute distress noted. vss. pt normal sinus on tele 87-90bpm.
--- NOTE | 2023-11-12 19:18 | PHA.PROG ---
Admission Date/Time: November 12, 2023 18:58 Indication: Bone + Joint Infection Weight in k.883 kg Adjusted body weight in Kg: [place] body weight in Kg: Obesity Dosing Indication % IBW: BMI 36.3 Serum Creatinine - Last 168 Hours 11/12/23 16:16 Creatinine 0.88 Estimated CrCl and GFR - Last 168 Hours 11/12/23 16:16 Estim Creat Clear Calc 98.9 Estimated GFR > 60 Vancomycin Loading Dose: 2000 x1 Current Vancomycin Dosing Regimen: 750 Q8H Vancomycin Monitoring using AUC goal of 400 - 600 range with trough as surrogate marker : 470 Date and Time for next Vancomycin Level to be drawn: 11/13/2023 @1500 Pharmacist Comments on Vancomycin Plan: Predicted trough 16.2. Vancomycin dosing will take advantage of [employer] as a clinical decision support tool that uses Bayesian modeling to calculate individual patient's pharmacokinetic parameters and forecast the patient's drug concentration time course with the target goal AUC 24 range of 400 - 600 mg/L/hr.
[2023-11-12] MEDS: Potassium Chloride/H20 10 MEQ/100 ML PIGGYBACK 100 MEQ IV ×3 (20:17→22:43)
--- NOTE | 2023-11-12 20:25 | PC.NURSE ---
new iV access obtained, 20G placed in left ac.
[2023-11-12 20:59] LABS: Glucose, Whole Blood 124 mg/dL (60-115)
[2023-11-12] MEDS: Insulin Glargine,Hum.rec.anlog 100 UNIT/ML 10 ML VIAL 15 UNIT SUBCUT (21:27)
[2023-11-12] MEDS: Acetaminophen 325 MG TABLET 650 MG PO (21:51)
--- NOTE | 2023-11-12 21:52 | PC.NURSE ---
pt noted to have fever of 100.5, pt medicated per mar with prn Tylenol, pt tolerated well with water.
[2023-11-12] MEDS: Piperacillin Sodium/Tazobactam 4.5 GM in 0.9 % Sodium Chloride 100 ML IV (22:37)
[2023-11-13] VITALS (8 sets, daily range): BP systolic 131–173; BP diastolic 61–80; PULSE 90–96; RESP 18–20; TEMP 36.4–37.1; O2SAT 86–97
[2023-11-13] MEDS: Potassium Chloride/H20 10 MEQ/100 ML PIGGYBACK 100 MEQ IV (00:05)
[2023-11-13] MEDS: 0.9 % Sodium Chloride Flush 3 ML SYRINGE IVFLUSH ×3 (00:06→21:17)
[2023-11-13] MEDS: vancomycin HCL 750 MG in 0.9 % Sodium Chloride 250 ML 265 MG IV ×2 (01:26→09:04)
[2023-11-13] MEDS: Piperacillin Sodium/Tazobactam 4.5 GM in 0.9 % Sodium Chloride 100 ML IV ×4 (04:36→21:09)
--- NOTE | 2023-11-13 07:33 | PHA.MEDREC ---
Pharmacy Consult ? Medication Reconciliation Pharmacy has completed the medication reconciliation. Pharmacy med rec tech utilized lang interpreter services to speak to patient last night. Patient poor historian and unsure of what he takes. Noted something about having a nurse named Bobby but no contact information provided or on file. She called his contact fahad Coyne who noted that she was unsure of what he takes but uses [facility], due to this utilized claim history to complete med rec. Per last admission in January 2023 claim history was also used to complete medication reconciliation. All prescriptions filled within last 3 months x 90 days.
[2023-11-13 07:55] LABS: Hematocrit 32.5 % (42.0-52.0); Hemoglobin 10.6 g/dl (14.0-18.0); Mean Corpuscular HGB Conc 32.6 g/dl (31.0-36.0); Mean Platelet Volume 10.5 fL (9.4-12.4); Platelet Count 223 X10*3/uL (160-400); Red Blood Count 3.78 X10*6/uL (4.60-5.80); Red Cell Distribution Width 14.3 % (11.0-16.0)
[2023-11-13 08:01] LABS: Anion Gap 12 (12-20); Blood Urea Nitrogen 9 mg/dL (9-16); Calcium 8.4 mg/dL (8.4-10.2); Carbon Dioxide 26 mmol/L (22-29); Chloride 105 mmol/L (96-108); Creatinine Clr Calc Pharmacy 107.4; Estimated Glomerular Filt Rate > 60; Glucose Random 137 mg/dL (60-115); Potassium 3.4 mmol/L (3.3-5.1); Sodium 140 mmol/L (135-145)
[2023-11-13 08:03] LABS: White Blood Count 31.3 X10*3/uL (4.8-10.8)
[2023-11-13 08:05] LABS: Glucose, Whole Blood 164 mg/dL (60-115)
[2023-11-13 08:18] LABS: Band Neutrophils Percent 1 % (3-5); Lymphocytes Absolute Manual 2.5 X10*3/uL (1.2-4.9); Lymphocytes Percent Manual 8 % (20-40); Monocytes Absolute Manual 2.8 X10*3/uL (0.1-1.2); Monocytes Percent Manual 9 % (2-11); Neutrophils Percent Manual 82 % (45-73)
[2023-11-13 08:24] LABS: Acanthocytes 1+ (0-2) /OIF; Burr Cells 1+ (0-2) /OIF; Platelet Estimate NORMAL (NORMAL); Platelet Morphology Comment NORMAL; RBC Morphology NOTED; Schistocytes 1+ (0-2) /OIF; Toxic Vacuolation PRESENT
[2023-11-13] MEDS: Insulin Lispro 100 UNIT/ML 3 ML VIAL SUBCUT ×3 (09:03→21:10)
[2023-11-13] MEDS: Acetaminophen 325 MG TABLET 650 MG PO (09:16)
--- NOTE | 2023-11-13 09:56 | PM.PNORT ---
Subjective Subjective Date of Service: 11/13/23 Principal diagnosis: left dorsal hand infection Interval history: Patient is more alert today after nasal ingestion of several bags of heroin yesterday as per the ED. He is still somnulant and his nad has been draining. Physical Exam Vital Signs: Vital Signs: Last Vital Signs Temp 97.6 F 11/13/23 08:00 Pulse 90 11/13/23 08:00 Resp 18 11/13/23 08:00 BP 142/62 H 11/13/23 08:53 Pulse Ox 91 L 11/13/23 08:00 O2 Del Method Nasal Cannula 11/13/23 08:00 O2 Flow Rate 2 11/13/23 08:00 Oxygen Flow Rate 2 11/12/23 15:36 BMI result Body Mass Index 36.3 Extrem: Other: Open wound over the dorsum of the left hand at the level of the MCP rf. This was oozing purulent discharge with the dorsum of the hand diffusely swollen without any one are of fluctuance. His volar hand remains mildly swollen with no evidence of flexor tendon involvement. I am able to flex and extend his fingers easily with mild discomfort. Procedures Date of Service Date of Service: 11/13/23 Abscess I/D Consent for Procedure: Elective - informed consent obtained (I explained the procedure to him and the rationale including trying to avoid a large open surgery as well as the benefits and laternatives. He expressed understanding.) Site: hand Side (if applicable): left Sedation/analgesia: none Technique: other (after soaking hand in warm dilute hydrogen peroxide I inserted a long sterile q tip into the open wound and opened the space under the dorsum of the hand. He tolerated this well nad I subsequntly expressed ~ 5 ml of lawson purulence.) Amount of fluid (mL): 5 Irrigation: Yes Packing used?: iodoform Additional comments: Patient tolerated this well. I placed him in sterile dressing and compression and we will re-eval tomorrowe. Progress Note: A&P Assessment and plan (1) Abscess of dorsum of left hand: Status: Acute Assessment and Plan: Draining wound was irriagated and packed. Continue IV abx and will continue to follow Time Spent With Patient Time: Total time managing care of this patient today ____ minutes. Quality Stroke Does the patient have a stroke diagnosis?: No VTE Prior VTE?: No VTE Risk Level:: Medical - moderate - high VTE Device Contraindication: Treatment Not Indicated VTE Drug Contraindication: N/A - Med Ordered
--- NOTE | 2023-11-13 10:01 | P.PNIM_ITS ---
Subjective Subjective Date of Service: 11/13/23 Review of Systems Follow up hand infection doing ok, WBC still elevated Physical Exam 2 Vital Signs: Vital Signs: Last Vital Signs Temp 97.6 F 11/13/23 08:00 Pulse 90 11/13/23 08:00 Resp 18 11/13/23 08:00 BP 142/62 H 11/13/23 08:53 Pulse Ox 91 L 11/13/23 08:00 O2 Del Method Nasal Cannula 11/13/23 08:00 O2 Flow Rate 2 11/13/23 08:00 Oxygen Flow Rate 2 11/12/23 15:36 BMI result Body Mass Index 36.3 Appearing in no acute distress lung sounds are clear to auscultation heart regular rate rhythm, clear S1, S2 positive bowel sounds, abdomen is soft, nontender neuro patient is alert x3, no focal deficits Left hand dressing intact Objective Data Active Medications Acetaminophen (Acetaminophen 325 Mg Tablet) 650 mg PO Q6H PRN PRN Reason: Pain, Mild (Pain Scale 1-3), fever or headache Last Admin: 11/13/23 09:16 Dose: 650 mg Documented By: ANISHA Calcium Carbonate (Calcium Carbonate 750 Mg Tab.Chew) 750 mg PO Q4H PRN PRN Reason: Heartburn Glucose (Glucose Gel 15 Gm Gel..Gram.) 15 gm PO Q15M PRN; Protocol PRN Reason: per Hypoglycemia Standing Ord. Dextrose (D10) 250 mls @ 750 mls/hr IV Q15M PRN; Protocol PRN Reason: per Hypoglycemia Standing Ord. Piperacillin Sod/Tazobactam (Sod 4.5 gm/ Sodium Chloride) 100 mls @ 200 mls/hr IV Q6H [facility] Last Admin: 11/13/23 09:03 Dose: 200 mls/hr Documented By: ANISHA Vancomycin HCl 750 mg/ Sodium (Chloride) 265 mls @ 265 mls/hr IV Q8H [facility] Last Admin: 11/13/23 09:04 Dose: 265 mls/hr Documented By: ANISHA Insulin Glargine (Insulin Glargine,Hum.Rec.Anlog 100 Unit/Ml 10 Ml Vial) 15 unit SUBCUT BEDTIME [facility] Last Admin: 11/12/23 21:27 Dose: 15 unit Documented By: AYSE Insulin Human Lispro (Insulin Lispro 100 Unit/Ml 3 Ml Vial) 0 unit SUBCUT QIDACHS [facility]; Protocol Last Admin: 11/13/23 09:03 Dose: 2 unit Documented By: ANISHA Magnesium Hydroxide (Milk Of Magnesia 30 Ml Oral.Susp) 30 ml PO DAILY PRN PRN Reason: Constipation Melatonin (Melatonin 3 Mg Tablet) 6 mg PO BEDTIME PRN PRN Reason: Insomnia Ondansetron HCl (Ondansetron Hcl 4 Mg/2 Ml Vial) 4 mg IVPUSH Q8H PRN PRN Reason: Nausea and Vomiting Pharmacy Consult (Consult Rx Vancomycin Dosing) 1 each MISCELLANE DAILY PRN PRN Reason: Consult order Sodium Chloride (0.9 % Sodium Chloride Flush 3 Ml Syringe) 3 ml IVFLUSH [facility] Last Admin: 11/13/23 09:04 Dose: 3 ml Documented By: ANISHA Labs 11/13/23 07:25 11/13/23 07:25 Labs: Laboratory Results - last 24 hr 11/12/23 11/12/23 11/13/23 16:16 20:55 07:25 MCV 86.1 86.0 MCH 28.1 28.0 MCHC 32.7 32.6 RDW 14.2 14.3 Plt Count 234 223 MPV 10.5 10.5 Immature Gran % (Auto) 1.3 H Cancelled Neut % (Auto) 84.5 H Cancelled Lymph % (Auto) 7.8 L Cancelled [place] % (Auto) 5.9 Cancelled Eos % (Auto) 0.2 Cancelled Baso % (Auto) 0.3 Cancelled Lymph # (Auto) 2.0 Cancelled [place] # (Auto) 1.5 H Cancelled Eos # (Auto) 0.0 Cancelled Baso # (Auto) 0.1 Cancelled Abs Immat Gran (auto) 0.34 H Cancelled Absolute Neuts (auto) 21.4 H Cancelled Absolute Nucleated RBC 0.000 0.000 Nucleated RBC % (auto) 0.0 0.0 Neutrophils % (Manual) 82 H Band Neutrophils % 1 L Lymphocytes % (Manual) 8 L Monocytes % (Manual) 9 Abs Neuts (Manual) 26.0 H Lymphocytes # (Manual) 2.5 Monocytes # (Manual) 2.8 H Toxic Vacuolation PRESENT Platelet Estimate NORMAL Plt Morphology Comment NORMAL RBC Morphology NOTED Krystyna Cells 1+ (0-2) Acanthocytes (Spur) 1+ (0-2) Schistocytes 1+ (0-2) Smear Tech's Comments VERIFIED ESR 77 H Anion Gap 13 12 Estim Creat Clear Calc 98.9 107.4 Estimated GFR > 60 > 60 POC Glucose 124 H Random Glucose 142 H 137 H Lactic Acid 1.9 Calcium 9.0 8.4 D Magnesium 1.7 C-Reactive Protein 26.79 H Lipase 21 11/13/23 08:01 MCV MCH MCHC RDW Plt Count MPV Immature Gran % (Auto) Neut % (Auto) Lymph % (Auto) [place] % (Auto) Eos % (Auto) Baso % (Auto) Lymph # (Auto) [place] # (Auto) Eos # (Auto) Baso # (Auto) Abs Immat Gran (auto) Absolute Neuts (auto) Absolute Nucleated RBC Nucleated RBC % (auto) Neutrophils % (Manual) Band Neutrophils % Lymphocytes % (Manual) Monocytes % (Manual) Abs Neuts (Manual) Lymphocytes # (Manual) Monocytes # (Manual) Toxic Vacuolation Platelet Estimate Plt Morphology Comment RBC Morphology Krystyna Cells Acanthocytes (Spur) Schistocytes Smear Tech's Comments ESR Anion Gap Estim Creat Clear Calc Estimated GFR POC Glucose 164 H Random Glucose Lactic Acid Calcium Magnesium C-Reactive Protein Lipase Assessment and Plan (1) Infection of left hand: Status: Acute Plan This is a 58-year-old male with pertinent history of polysubstance IV drug use disorder, congestive heart failure with reduced ejection fraction, history of AFib cardiac arrest in 10/27/2022, insulin-dependent diabetes mellitus, hypertension, mixed hyperlipidemia who presents to the emergency department for concerns of hand infection. Sepsis due to left hand abscess still with elevated WBC of 31.3 continue IV vancomycin and Zosyn. blood culture pending Evaluated by Orthopedic surgery> wound irrigated and packed, potential surgery tomorrow. Will keep patient NPO at midnight. Acute toxic encephalopathy due to opioid use resolved Polysubstance use disorder Consulting Addiction Team. Monitor for withdrawal. COWS q shift Hypokalemia Repleted Insulin-dependent diabetes mellitus ss, ada diet Congestive heart failure with reduced ejection fraction No decompensation during admission. Patient on spironolactone, ARB, Lasix. Not on BB due to cocaine use Hypertension Continue home antihypertensives Mixed hyperlipidemia On statin CAD On aspirin and statin DVT prophylaxis: Mechanical attending Dr. Sandy Full code continue hospital stay for IV antibiotics (as above), which is not possible in a lesser acute setting. Quality Stroke Does the patient have a stroke diagnosis?: No VTE Prior VTE?: No VTE Risk Level:: Medical - moderate - high VTE Device Contraindication: Treatment Not Indicated VTE Drug Contraindication: N/A - Med Ordered
[2023-11-13 11:49] LABS: Glucose, Whole Blood 113 mg/dL (60-115)
[2023-11-13] MEDS: Gabapentin 300 MG CAPSULE PO ×2 (14:38→21:10)
[2023-11-13 16:14] LABS: Vancomycin Random 13.8 mcg/mL (15-20)
--- NOTE | 2023-11-13 16:23 | HE.PHANOTE ---
RE VANCO DOSING CHANGING DOSE FROM 750 Q8 TO 1250 Q12 TO ACHIEVE MORE APPROPRIATE AUC AND TROUGH WITHIN FASTER TIME FRAME. WITH CURRENT DOSING WOULDN'T SEE AUC OVER 400 FOR MORE THAN 24 MORE HOURS. WITH DOSE ADJUSTMENT SHOULD SEE AUC GREATER THAN 400 AFTER NEXT DOSE @1700. CONTINUE DAILY RENAL MONITORING AND RECHECK TROUGH 11/13 @1500.
[2023-11-13 16:31] LABS: Glucose, Whole Blood 189 mg/dL (60-115)
[2023-11-13] MEDS: vancomycin HCL 1,250 MG in 0.9 % Sodium Chloride 250 ML 166.67 MG IV (17:50)
[2023-11-13 21:02] LABS: Glucose, Whole Blood 180 mg/dL (60-115)
[2023-11-13] MEDS: Atorvastatin Calcium 80 MG TABLET PO (21:10)
[2023-11-13] MEDS: Insulin Glargine,Hum.rec.anlog 100 UNIT/ML 10 ML VIAL 15 UNIT SUBCUT (21:11)
[2023-11-14] VITALS (13 sets, daily range): BP systolic 126–170; BP diastolic 55–80; PULSE 83–104; RESP 14–20; TEMP 36.2–37.6; O2SAT 90–96
[2023-11-14] MEDS: Piperacillin Sodium/Tazobactam 4.5 GM in 0.9 % Sodium Chloride 100 ML IV ×4 (04:24→21:36)
[2023-11-14] MEDS: vancomycin HCL 1,250 MG in 0.9 % Sodium Chloride 250 ML 166.67 MG IV (04:27)
[2023-11-14 07:13] LABS: Creatinine Clr Calc Pharmacy 114.5; Estimated Glomerular Filt Rate > 60
--- NOTE | 2023-11-14 07:44 | PM.PNORT ---
Subjective Subjective Date of Service: 11/14/23 Principal diagnosis: left dorsal hand infection Interval history: Feels improved but still with pain and swelling Physical Exam Vital Signs: Vital Signs: Last Vital Signs Temp 99.7 F 11/14/23 03:27 Pulse 83 11/14/23 03:27 Resp 20 11/14/23 03:27 BP 152/74 H 11/14/23 03:27 Pulse Ox 94 11/14/23 03:27 O2 Del Method Nasal Cannula 11/14/23 03:27 O2 Flow Rate 2 11/14/23 03:27 Oxygen Flow Rate 2 11/12/23 15:36 BMI result Body Mass Index 36.3 Resp: Effort & Inspection: audible wheezes Extrem: Other: left dorsla hand with open wound of LF MCP that is draining. COntinued swelling over dorsum of the ahnd with tenderness and fluctuance. No volar involvmeent but extending up into dorsum of wrist. Extensors intact but paionful Procedures Date of Service Date of Service: 11/14/23 Progress Note: A&P Assessment and plan (1) Infection of left hand: Status: Acute Assessment and Plan: Infected laceration left hand with persistent drainage and fluctuance. Improved with bedside I&D but still with pain and swelling. I recommend open debridement and irrigation. I discussed this with him and he expressed understanding. I discussed the risks benefits and alternatives including but not limited to the risk of pain, infection, stiffness, need for further surgery as well as potential medical complications such as blood clots, pulmonary embolism and cardiac complications. Time Spent With Patient Time: Total time managing care of this patient today ____ minutes. Quality Stroke Does the patient have a stroke diagnosis?: No VTE Prior VTE?: No VTE Risk Level:: Medical - moderate - high VTE Device Contraindication: Treatment Not Indicated VTE Drug Contraindication: N/A - Med Ordered
[2023-11-14 07:58] LABS: Glucose, Whole Blood 102 mg/dL (60-115)
[2023-11-14 08:09] LABS: Hematocrit 32.7 % (42.0-52.0); Hemoglobin 10.7 g/dl (14.0-18.0); Mean Corpuscular HGB Conc 32.7 g/dl (31.0-36.0); Mean Corpuscular Hemoglobin 28.3 pg (27.0-33.0); Mean Corpuscular Volume 86.5 fL (80.0-98.0); Mean Platelet Volume 10.3 fL (9.4-12.4); Platelet Count 236 X10*3/uL (160-400); Red Blood Count 3.78 X10*6/uL (4.60-5.80); Red Cell Distribution Width 14.4 % (11.0-16.0); White Blood Count 29.5 X10*3/uL (4.8-10.8)
[2023-11-14] MEDS: Losartan Potassium 50 MG TABLET PO (08:13)
[2023-11-14] MEDS: Tamsulosin HCL 0.4 MG CAPSULE PO (08:14)
[2023-11-14] MEDS: Acetaminophen 325 MG TABLET 650 MG PO ×3 (08:14→23:32)
[2023-11-14] MEDS: Gabapentin 300 MG CAPSULE PO ×3 (08:14→21:32)
[2023-11-14] MEDS: hydrOXYzine HCL 50 MG TABLET PO (08:14)
[2023-11-14] MEDS: 0.9 % Sodium Chloride Flush 3 ML SYRINGE IVFLUSH ×3 (08:15→21:32)
[2023-11-14 08:26] LABS: Anion Gap 11 (12-20); Blood Urea Nitrogen 8 mg/dL (9-16); Calcium 8.8 mg/dL (8.4-10.2); Carbon Dioxide 26 mmol/L (22-29); Chloride 106 mmol/L (96-108); Creatinine Clr Calc Pharmacy 119.2; Estimated Glomerular Filt Rate > 60; Glucose Random 103 mg/dL (60-115); Potassium 3.1 mmol/L (3.3-5.1); Sodium 140 mmol/L (135-145)
--- NOTE | 2023-11-14 08:44 | P.PNIM_ITS ---
Subjective Subjective Date of Service: 11/14/23 Review of Systems Follow up hand infection doing ok, WBC still elevated Physical Exam 2 Vital Signs: Vital Signs: Last Vital Signs Temp 99.7 F 11/14/23 03:27 Pulse 83 11/14/23 03:27 Resp 20 11/14/23 03:27 BP 168/80 H 11/14/23 08:13 Pulse Ox 94 11/14/23 03:27 O2 Del Method Nasal Cannula 11/14/23 03:27 O2 Flow Rate 2 11/14/23 03:27 Oxygen Flow Rate 2 11/12/23 15:36 BMI result Body Mass Index 36.3 Appearing in no acute distress lung sounds are clear to auscultation heart regular rate rhythm, clear S1, S2 positive bowel sounds, abdomen is soft, nontender neuro patient is alert x3, no focal deficits Objective Data Active Medications Acetaminophen (Acetaminophen 325 Mg Tablet) 650 mg PO Q6H PRN PRN Reason: Pain, Mild (Pain Scale 1-3), fever or headache Last Admin: 11/14/23 08:14 Dose: 650 mg Documented By: ANISHA Aspirin (Aspirin Enteric Coated 81 Mg Tablet.Dr) 81 mg PO DAILY [facility] Last Admin: 11/14/23 08:14 Dose: Not Given Documented By: ANISHA Non-Admin Reason: Physician Held Med Atorvastatin Calcium (Atorvastatin Calcium 80 Mg Tablet) 80 mg PO BEDTIME [facility] Last Admin: 11/13/23 21:10 Dose: 80 mg Documented By: ANGELINA Calcium Carbonate (Calcium Carbonate 750 Mg Tab.Chew) 750 mg PO Q4H PRN PRN Reason: Heartburn Docusate Sodium (Docusate Sodium 100 Mg Capsule) 200 mg PO BEDTIME PRN PRN Reason: Constipation Gabapentin (Gabapentin 300 Mg Capsule) 300 mg PO TID [facility] Last Admin: 11/14/23 08:14 Dose: 300 mg Documented By: ANISHA Glucose (Glucose Gel 15 Gm Gel..Gram.) 15 gm PO Q15M PRN; Protocol PRN Reason: per Hypoglycemia Standing Ord. Hydroxyzine HCl (Hydroxyzine Hcl 50 Mg Tablet) 50 mg PO BID PRN PRN Reason: Anxiety Last Admin: 11/14/23 08:14 Dose: 50 mg Documented By: ANISHA Dextrose (D10) 250 mls @ 750 mls/hr IV Q15M PRN; Protocol PRN Reason: per Hypoglycemia Standing Ord. Piperacillin Sod/Tazobactam (Sod 4.5 gm/ Sodium Chloride) 100 mls @ 200 mls/hr IV Q6H [facility] Last Infusion: 11/14/23 05:50 Dose: Infused Documented By: NICOLE Vancomycin HCl 1,250 mg/ (Sodium Chloride) 250 mls @ 166.667 mls/hr IV Q12H [facility] Last Infusion: 11/14/23 06:15 Dose: Infused Documented By: NICOLE Insulin Glargine (Insulin Glargine,Hum.Rec.Anlog 100 Unit/Ml 10 Ml Vial) 15 unit SUBCUT BEDTIME [facility] Last Admin: 11/13/23 21:11 Dose: 15 unit Documented By: ANGELINA Insulin Human Lispro (Insulin Lispro 100 Unit/Ml 3 Ml Vial) 0 unit SUBCUT QIDACHS [facility]; Protocol Last Admin: 11/14/23 08:01 Dose: Not Given Documented By: ANISHA Non-Admin Reason: No Insulin Coverage Losartan Potassium (Losartan Potassium 50 Mg Tablet) 50 mg PO DAILY [facility]; Protocol Last Admin: 11/14/23 08:13 Dose: 50 mg Documented By: ANISHA Magnesium Hydroxide (Milk Of Magnesia 30 Ml Oral.Susp) 30 ml PO DAILY PRN PRN Reason: Constipation Melatonin (Melatonin 3 Mg Tablet) 6 mg PO BEDTIME PRN PRN Reason: Insomnia Ondansetron HCl (Ondansetron Hcl 4 Mg/2 Ml Vial) 4 mg IVPUSH Q8H PRN PRN Reason: Nausea and Vomiting Pharmacy Consult (Consult Rx Vancomycin Dosing) 1 each MISCELLANE DAILY PRN PRN Reason: Consult order Polyethylene Glycol (Polyethylene Glycol 3350 17 Gm Powd.Pack) 17 gm PO DAILY PRN PRN Reason: Constipation Sodium Chloride (0.9 % Sodium Chloride Flush 3 Ml Syringe) 3 ml IVFLUSH QSHIFT [facility] Last Admin: 11/14/23 08:15 Dose: 3 ml Documented By: ANISHA Tamsulosin HCl (Tamsulosin Hcl 0.4 Mg Capsule) 0.4 mg PO DAILY [facility] Last Admin: 11/14/23 08:14 Dose: 0.4 mg Documented By: ANISHA Labs 11/14/23 07:55 11/14/23 07:55 Labs: Laboratory Results - last 24 hr 11/13/23 11/13/23 11/13/23 11:41 15:06 16:28 MCV MCH MCHC RDW Plt Count MPV Absolute Nucleated RBC Nucleated RBC % (auto) Anion Gap Estim Creat Clear Calc Estimated GFR POC Glucose 113 189 H Random Glucose Calcium Random Vancomycin 13.8 L 11/13/23 11/14/23 11/14/23 20:55 06:21 07:54 MCV MCH MCHC RDW Plt Count MPV Absolute Nucleated RBC Nucleated RBC % (auto) Anion Gap Estim Creat Clear Calc 114.5 Estimated GFR > 60 POC Glucose 180 H 102 Random Glucose Calcium Random Vancomycin 11/14/23 07:55 MCV 86.5 MCH 28.3 MCHC 32.7 RDW 14.4 Plt Count 236 MPV 10.3 Absolute Nucleated RBC 0.000 Nucleated RBC % (auto) 0.0 Anion Gap 11 L Estim Creat Clear Calc 119.2 Estimated GFR > 60 POC Glucose Random Glucose 103 Calcium 8.8 Random Vancomycin Microbiology Microbiology Results: Microbiology 11/12/23 16:21 Blood Culture - Preliminary Blood - Venous No growth after 24 hours. 11/12/23 16:21 Blood Culture - Preliminary Blood - Venous No growth after 24 hours. Assessment and Plan (1) Infection of left hand: Status: Acute Plan This is a 58-year-old male with pertinent history of polysubstance IV drug use disorder, congestive heart failure with reduced ejection fraction, history of AFib cardiac arrest in 10/27/2022, insulin-dependent diabetes mellitus, hypertension, mixed hyperlipidemia who presents to the emergency department for concerns of hand infection. Sepsis due to left hand abscess WBC trending down continue IV vancomycin and Zosyn. blood culture pneg after 24 hrs Evaluated by Orthopedic surgery> OR today Acute toxic encephalopathy due to opioid use resolved Polysubstance use disorder Consulting Addiction Team. Monitor for withdrawal. COWS q shift Hypokalemia Repleted check mag Insulin-dependent diabetes mellitus ss, ada diet Congestive heart failure with reduced ejection fraction No decompensation during admission. Patient on spironolactone, ARB, Lasix. Not on BB due to cocaine use Hypertension Continue home antihypertensives Mixed hyperlipidemia On statin CAD On aspirin and statin DVT prophylaxis: Mechanical attending Dr. Sandy Full code continue hospital stay for IV antibiotics (as above), which is not possible in a lesser acute setting. Quality Stroke Does the patient have a stroke diagnosis?: No VTE Prior VTE?: No VTE Risk Level:: Medical - moderate - high VTE Device Contraindication: Treatment Not Indicated VTE Drug Contraindication: N/A - Med Ordered
[2023-11-14 09:19] LABS: Magnesium 1.7 mg/dL (1.6-2.6)
[2023-11-14] MEDS: Potassium Chloride ER 20 MEQ TAB.ER.PRT 40 MEQ PO (09:27)
--- NOTE | 2023-11-14 09:55 | P.CONAN_ITS ---
HPI - Anesthesia Eval Consult details Narrative: hand abscess PMFSH Active Problems Active Problems: All Active Problems Infection of left hand (Acute) Abscess of dorsum of left hand (Acute) Chronic constipation (Acute) Encounter for screening colonoscopy (Acute) Toxic encephalopathy (Acute) Opioid use disorder (Acute) Abnormal head CT (Acute) Transaminitis (Acute) Sepsis (Acute) Acute metabolic encephalopathy (Acute) Substance abuse (Acute) Acute alteration in mental status (Acute) Fever (Acute) Cardiomyopathy (Acute) Ventricular fibrillation (Acute) Morbid obesity (Acute) Hypersomnia (Acute) Hepatitis B core antibody positive (Acute) Morbid obesity (Acute) Uncontrolled type 2 diabetes mellitus (Acute) Cocaine abuse (Acute) Tobacco abuse (Acute) Chronic HFrEF (heart failure with reduced ejection fraction) (Acute) Atypical chest pain (Acute) Opioid use disorder, severe, in controlled environment, dependence (Acute) NICM (nonischemic cardiomyopathy) (Acute) Past Medical History Medical History Type 2 diabetes mellitus with unspecified complications Essential hypertension Unstable angina History of CVA (cerebrovascular accident) Diabetes HTN (hypertension) Morbid obesity Chest pain Family History Family History Other CAD (coronary artery disease) Diabetes HTN (hypertension) Family history of problems with anesthesia: No Surgical History Surgical History No pertinent past surgical history History of Problems with Anesthesia: No Social History Social History Household Members: None Housing: Apartment Do you presently have visiting nurse or other home services: Yes ([facility]NA) Patient Tobacco Use Status: Current everyday Tobacco user Tobacco use type: Cigarette e-Cigarette/Vaping Use: Never Used Second Hand Smoke Exposure: No Substance Use Type: Heroin service: No Current occupational status: unemployed Meds Allergies Allergy/AdvReac Type Severity Reaction Status Date / Time Penicillins [PCN] Allergy Intermediate HIVES Verified 11/12/23 15:44 Active Medications: Current Medications Acetaminophen (Acetaminophen 325 Mg Tablet) 650 mg PO Q6H PRN PRN Reason: Pain, Mild (Pain Scale 1-3), fever or headache Last Admin: 11/14/23 08:14 Dose: 650 mg Aspirin (Aspirin Enteric Coated 81 Mg Tablet.Dr) 81 mg PO DAILY [facility] Last Admin: 11/14/23 08:14 Dose: Not Given Atorvastatin Calcium (Atorvastatin Calcium 80 Mg Tablet) 80 mg PO BEDTIME [facility] Last Admin: 11/13/23 21:10 Dose: 80 mg Calcium Carbonate (Calcium Carbonate 750 Mg Tab.Chew) 750 mg PO Q4H PRN PRN Reason: Heartburn Docusate Sodium (Docusate Sodium 100 Mg Capsule) 200 mg PO BEDTIME PRN PRN Reason: Constipation Gabapentin (Gabapentin 300 Mg Capsule) 300 mg PO TID [facility] Last Admin: 11/14/23 08:14 Dose: 300 mg Glucose (Glucose Gel 15 Gm Gel..Gram.) 15 gm PO Q15M PRN; Protocol PRN Reason: per Hypoglycemia Standing Ord. Hydroxyzine HCl (Hydroxyzine Hcl 50 Mg Tablet) 50 mg PO BID PRN PRN Reason: Anxiety Last Admin: 11/14/23 08:14 Dose: 50 mg Dextrose (D10) 250 mls @ 750 mls/hr IV Q15M PRN; Protocol PRN Reason: per Hypoglycemia Standing Ord. Piperacillin Sod/Tazobactam (Sod 4.5 gm/ Sodium Chloride) 100 mls @ 200 mls/hr IV Q6H [facility] Last Admin: 11/14/23 09:28 Dose: 200 mls/hr Vancomycin HCl 1,250 mg/ (Sodium Chloride) 250 mls @ 166.667 mls/hr IV Q12H [facility] Last Infusion: 11/14/23 06:15 Dose: Infused Insulin Glargine (Insulin Glargine,Hum.Rec.Anlog 100 Unit/Ml 10 Ml Vial) 15 unit SUBCUT BEDTIME [facility] Last Admin: 11/13/23 21:11 Dose: 15 unit Insulin Human Lispro (Insulin Lispro 100 Unit/Ml 3 Ml Vial) 0 unit SUBCUT QIDACHS [facility]; Protocol Last Admin: 11/14/23 08:01 Dose: Not Given Losartan Potassium (Losartan Potassium 50 Mg Tablet) 50 mg PO DAILY [facility]; Protocol Last Admin: 11/14/23 08:13 Dose: 50 mg Magnesium Hydroxide (Milk Of Magnesia 30 Ml Oral.Susp) 30 ml PO DAILY PRN PRN Reason: Constipation Melatonin (Melatonin 3 Mg Tablet) 6 mg PO BEDTIME PRN PRN Reason: Insomnia Ondansetron HCl (Ondansetron Hcl 4 Mg/2 Ml Vial) 4 mg IVPUSH Q8H PRN PRN Reason: Nausea and Vomiting Pharmacy Consult (Consult Rx Vancomycin Dosing) 1 each MISCELLANE DAILY PRN PRN Reason: Consult order Polyethylene Glycol (Polyethylene Glycol 3350 17 Gm Powd.Pack) 17 gm PO DAILY PRN PRN Reason: Constipation Sodium Chloride (0.9 % Sodium Chloride Flush 3 Ml Syringe) 3 ml IVFLUSH QSHIFT [facility] Last Admin: 11/14/23 08:15 Dose: 3 ml Tamsulosin HCl (Tamsulosin Hcl 0.4 Mg Capsule) 0.4 mg PO DAILY [facility] Last Admin: 11/14/23 08:14 Dose: 0.4 mg Home Medications ?Medication ?Instructions ?Recorded ?Confirmed ?Last Taken ?Type aspirin 81 mg tablet,delayed 81 mg PO DAILY 01/18/23 11/13/23 Unknown History release docusate sodium 100 mg capsule 100 - 200 mg PO BEDTIME PRN 01/18/23 11/13/23 Unknown History constipation insulin glargine 100 unit/mL (3 30 unit subcut BID 01/18/23 11/13/23 Unknown History mL) subcutaneous pen (Lantus Solostar U-100 Insulin) ammonium lactate 12 % topical cream 1 appl topical DAILY PRN Dry Skin 11/13/23 11/13/23 Unknown History atorvastatin 80 mg tablet 80 mg PO BEDTIME 11/13/23 11/13/23 Unknown History docusate sodium 100 mg capsule 200 mg PO BEDTIME PRN Constipation 11/13/23 11/13/23 Unknown History (Colace) gabapentin 300 mg capsule 300 mg PO TID 11/13/23 11/13/23 Unknown History hydroxyzine HCl 50 mg tablet 50 mg PO BID PRN Anxiety 11/13/23 11/13/23 Unknown History losartan 50 mg tablet 50 mg PO DAILY 11/13/23 11/13/23 Unknown History metformin 500 mg tablet,extended 500 mg PO BID 11/13/23 11/13/23 Unknown History release 24 hr polyethylene glycol 3350 17 17 g PO DAILY PRN Constipation 11/13/23 11/13/23 Unknown History gram/dose oral powder (Miralax) tamsulosin 0.4 mg capsule 0.4 mg PO DAILY 11/13/23 11/13/23 Unknown History Exam Height,Weight and Vital Signs: Height 5 ft 5 in Weight 98.883 kg Last Vital Signs Temp 99.7 F 11/14/23 03:27 Pulse 83 11/14/23 03:27 Resp 20 11/14/23 03:27 BP 168/80 H 11/14/23 08:13 Pulse Ox 94 11/14/23 03:27 O2 Del Method Nasal Cannula 11/14/23 03:27 O2 Flow Rate 2 11/14/23 03:27 Oxygen Flow Rate 2 11/12/23 15:36 Pertinent Lab Results Pertinent Lab Results: Laboratory Tests 11/12/23 11/12/23 11/13/23 16:16 20:55 07:25 WBC 25.3 H 31.3 H* RBC 4.16 L 3.78 L Hgb 11.7 L 10.6 L Hct 35.8 L 32.5 L MCV 86.1 86.0 MCH 28.1 28.0 MCHC 32.7 32.6 RDW 14.2 14.3 Plt Count 234 223 MPV 10.5 10.5 Immature Gran % (Auto) 1.3 H Cancelled Neut % (Auto) 84.5 H Cancelled Lymph % (Auto) 7.8 L Cancelled Clayton % (Auto) 5.9 Cancelled Eos % (Auto) 0.2 Cancelled Baso % (Auto) 0.3 Cancelled Lymph # (Auto) 2.0 Cancelled Clayton # (Auto) 1.5 H Cancelled Eos # (Auto) 0.0 Cancelled Baso # (Auto) 0.1 Cancelled Abs Immat Gran (auto) 0.34 H Cancelled Absolute Neuts (auto) 21.4 H Cancelled Absolute Nucleated RBC 0.000 0.000 Nucleated RBC % (auto) 0.0 0.0 Neutrophils % (Manual) 82 H Band Neutrophils % 1 L Lymphocytes % (Manual) 8 L Monocytes % (Manual) 9 Abs Neuts (Manual) 26.0 H Lymphocytes # (Manual) 2.5 Monocytes # (Manual) 2.8 H Toxic Vacuolation PRESENT Platelet Estimate NORMAL Plt Morphology Comment NORMAL RBC Morphology NOTED Krystyna Cells 1+ (0-2) Acanthocytes (Spur) 1+ (0-2) Schistocytes 1+ (0-2) Smear Tech's Comments VERIFIED ESR 77 H Sodium 136 140 Potassium 3.0 L D 3.4 Chloride 97 105 Carbon Dioxide 29 26 Anion Gap 13 12 BUN 9 9 Creatinine 0.88 0.81 Estim Creat Clear Calc 98.9 107.4 Estimated GFR > 60 > 60 POC Glucose 124 H Random Glucose 142 H 137 H Lactic Acid 1.9 Calcium 9.0 8.4 D Magnesium 1.7 C-Reactive Protein 26.79 H Lipase 21 Random Vancomycin 11/13/23 11/13/23 11/13/23 08:01 11:41 15:06 WBC RBC Hgb Hct MCV MCH MCHC RDW Plt Count MPV Immature Gran % (Auto) Neut % (Auto) Lymph % (Auto) Clayton % (Auto) Eos % (Auto) Baso % (Auto) Lymph # (Auto) Clayton # (Auto) Eos # (Auto) Baso # (Auto) Abs Immat Gran (auto) Absolute Neuts (auto) Absolute Nucleated RBC Nucleated RBC % (auto) Neutrophils % (Manual) Band Neutrophils % Lymphocytes % (Manual) Monocytes % (Manual) Abs Neuts (Manual) Lymphocytes # (Manual) Monocytes # (Manual) Toxic Vacuolation Platelet Estimate Plt Morphology Comment RBC Morphology Krystyna Cells Acanthocytes (Spur) Schistocytes Smear Tech's Comments ESR Sodium Potassium Chloride Carbon Dioxide Anion Gap BUN Creatinine Estim Creat Clear Calc Estimated GFR POC Glucose 164 H 113 Random Glucose Lactic Acid Calcium Magnesium C-Reactive Protein Lipase Random Vancomycin 13.8 L 11/13/23 11/13/23 11/14/23 16:28 20:55 06:21 WBC RBC Hgb Hct MCV MCH MCHC RDW Plt Count MPV Immature Gran % (Auto) Neut % (Auto) Lymph % (Auto) Clayton % (Auto) Eos % (Auto) Baso % (Auto) Lymph # (Auto) Clayton # (Auto) Eos # (Auto) Baso # (Auto) Abs Immat Gran (auto) Absolute Neuts (auto) Absolute Nucleated RBC Nucleated RBC % (auto) Neutrophils % (Manual) Band Neutrophils % Lymphocytes % (Manual) Monocytes % (Manual) Abs Neuts (Manual) Lymphocytes # (Manual) Monocytes # (Manual) Toxic Vacuolation Platelet Estimate Plt Morphology Comment RBC Morphology [place] Cells Acanthocytes (Spur) Schistocytes Smear Tech's Comments ESR Sodium Potassium Chloride Carbon Dioxide Anion Gap BUN Creatinine 0.76 Estim Creat Clear Calc 114.5 Estimated GFR > 60 POC Glucose 189 H 180 H Random Glucose Lactic Acid Calcium Magnesium C-Reactive Protein Lipase Random Vancomycin 11/14/23 11/14/23 07:54 07:55 WBC 29.5 H RBC 3.78 L Hgb 10.7 L Hct 32.7 L MCV 86.5 MCH 28.3 MCHC 32.7 RDW 14.4 Plt Count 236 MPV 10.3 Immature Gran % (Auto) Neut % (Auto) Lymph % (Auto) Clayton % (Auto) Eos % (Auto) Baso % (Auto) Lymph # (Auto) Clayton # (Auto) Eos # (Auto) Baso # (Auto) Abs Immat Gran (auto) Absolute Neuts (auto) Absolute Nucleated RBC 0.000 Nucleated RBC % (auto) 0.0 Neutrophils % (Manual) Band Neutrophils % Lymphocytes % (Manual) Monocytes % (Manual) Abs Neuts (Manual) Lymphocytes # (Manual) Monocytes # (Manual) Toxic Vacuolation Platelet Estimate Plt Morphology Comment RBC Morphology Krystyna Cells Acanthocytes (Spur) Schistocytes Smear Tech's Comments ESR Sodium 140 Potassium 3.1 L Chloride 106 Carbon Dioxide 26 Anion Gap 11 L BUN 8 L Creatinine 0.73 Estim Creat Clear Calc 119.2 Estimated GFR > 60 POC Glucose 102 Random Glucose 103 Lactic Acid Calcium 8.8 Magnesium 1.7 C-Reactive Protein Lipase Random Vancomycin Airway Mallampati Class: II TM Dist: >3cm Neck ROM: Full Loose/Missing/Broken Teeth: Yes (MULTIPLE MISSING TEETH, THE REMAINING ARE STABLE) and No Heart: RRR Lungs: CTA Assessment and Plan Assessment Anesthesia Assessment: Anesthesia Plan Discussed and Chart Reviewed Final Anesthetic Review Family History of Problems with Anesthesia: No History of Problems with Anesthesia: No NPO: Yes ASA Class: III and Emergency Final Preanesthetic Review: No Changes in Pt Med Stat, Meds/Allgs Chart Reviewed, Consent Obtained/Reviewed and Anes Risks/Benef Reviewed Patient Risk: High Procedure Risk: Low Anesthetic Plan Anesthetic Plan: GA Disposition: Standard PACU
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
--- NOTE | 2023-11-14 10:34 | MHC.SHP ---
Pre-Procedural Eval Section A - 24 Hr Update-Section A only Date of Service: 11/14/23 The patient is an INPATIENT: Yes The patient has been examined within 24 hours of the surgical procedure. The History & Physical has been completed within 30 days and I have reviewed it.: Yes Section B - Complete if H&P > 30 days Chief Complaint: Hand infection Allergies: Allergies Allergy/AdvReac Type Severity Reaction Status Date / Time Penicillins [PCN] Allergy Intermediate HIVES Verified 11/12/23 15:44 Plan I have reviewed the history and physical and performed a pertinent physical examination on my patient. No changes have occurred unless specified. Time Spent With Patient Time: Total time managing care of this patient today ____ minutes.
--- NOTE | 2023-11-14 11:26 | PM.OP ---
Brief Operative Note Date of Service: 11/14/23 Pre-op diagnosis: abcess left dorsal hand Post-op diagnosis: same Procedure: incision and drainage left hand abcess, deep Surgeon: Oumar Andrade MD Anesthesia: GLMA and local Was an Transportation Maintenance Specialist used for this Procedure?: No Estimated blood loss (mL): 50 IV fluids (mL): 500 Pathology: none sent Condition: stable Disposition: PACU
[2023-11-14 12:03] LABS: Glucose, Whole Blood 92 mg/dL (60-115)
[2023-11-14] MEDS: Morphine Sulfate 2 MG/ML CARTRIDGE IVPUSH (12:54)
[2023-11-14 15:39] LABS: Vancomycin Random 12.1 mcg/mL (15-20)
--- NOTE | 2023-11-14 15:46 | HE.PHANOTE ---
Vanco Dosing Level dropped to 12.1 today after dose adjustment. Trough and AUC expected to continue to drop with current regimen. Will increase dose to vancomycin 1500 mg Q12H. New predicted AUC is 487 with a trough of 13.4. Will get another level in 24 hours on 11/14 @ 1500. Pharmacy will continue to monitor renal function daily. Penny Turner, PharmD
[2023-11-14 16:01] LABS: Glucose, Whole Blood 189 mg/dL (60-115)
--- NOTE | 2023-11-14 16:05 | MHC.CM.PN ---
Addendum entered by Shelley Tucker 11/14/23 16:11: HCP form completed, added to chart, naming pt.'s nieceDoretha Original Note: Pt lives alone, he has a nurse that visits him daily to give him his meds, for DME he has a walker, a scooter (here with him). He goes to [facility] and sees [place] for PCP. He will needs assistance with transportation home. DCP: home, resume services, CM to follow for DC needs.
[2023-11-14] MEDS: HYDROmorphone HCl 1 MG/ML SYRINGE IVPUSH ×2 (16:52→21:45)
[2023-11-14] MEDS: Insulin Lispro 100 UNIT/ML 3 ML VIAL SUBCUT ×2 (16:52→21:31)
[2023-11-14] MEDS: vancomycin HCL 1,500 MG in 0.9 % Sodium Chloride 500 ML 333.33 MG IV (16:53)
[2023-11-14 20:49] LABS: Glucose, Whole Blood 182 mg/dL (60-115)
[2023-11-14] MEDS: Insulin Glargine,Hum.rec.anlog 100 UNIT/ML 10 ML VIAL 15 UNIT SUBCUT (21:31)
[2023-11-14] MEDS: Atorvastatin Calcium 80 MG TABLET PO (21:32)
[2023-11-14 23:32] LABS: Glucose, Whole Blood 228 mg/dL (60-115)
[2023-11-15] VITALS: BP 144/66; PULSE 102; RESP 20; TEMP 38.9; O2SAT 97
[2023-11-15] MEDS: 0.9 % Sodium Chloride 500 ML IV (00:48)
[2023-11-15] MEDS: Acetaminophen 1,000 MG/100 ML PIGGYBACK 400 MG IV (00:49)
[2023-11-15 01:20] LABS: Lactic Acid 1.2 mmol/L (0.5-2.0)
[2023-11-15] MEDS: Piperacillin Sodium/Tazobactam 4.5 GM in 0.9 % Sodium Chloride 100 ML IV ×4 (04:52→21:52)
[2023-11-15] MEDS: vancomycin HCL 1,500 MG in 0.9 % Sodium Chloride 500 ML 333.33 MG IV (04:59)
[2023-11-15 06:06] LABS: Creatinine Clr Calc Pharmacy 114.5; Estimated Glomerular Filt Rate > 60
[2023-11-15 06:58] LABS: Glucose, Whole Blood 171 mg/dL (60-115)
--- NOTE | 2023-11-15 07:14 | PC.NURSE ---
Patient had temp 102 degrees, received PO Tylenol 650mg with cold compress to forehead, recheck temp 102, Dr Kelly transmissions systems operator provider notified, ordered 500mL saline, IV Tylenol 1000mg, administered, rechecked temp 98.9.
[2023-11-15 07:40] VITALS: BP 159/72; PULSE 84; RESP 20; TEMP 37.7; O2SAT 100
[2023-11-15 07:46] LABS: Hematocrit 31.9 % (42.0-52.0); Hemoglobin 10.3 g/dl (14.0-18.0); Mean Corpuscular HGB Conc 32.3 g/dl (31.0-36.0); Mean Corpuscular Hemoglobin 28.1 pg (27.0-33.0); Mean Corpuscular Volume 86.9 fL (80.0-98.0); Mean Platelet Volume 10.2 fL (9.4-12.4); Platelet Count 251 X10*3/uL (160-400); Red Blood Count 3.67 X10*6/uL (4.60-5.80); Red Cell Distribution Width 14.6 % (11.0-16.0); White Blood Count 20.7 X10*3/uL (4.8-10.8)
[2023-11-15 08:00] LABS: Anion Gap 9 (12-20); Blood Urea Nitrogen 8 mg/dL (9-16); Calcium 8.7 mg/dL (8.4-10.2); Carbon Dioxide 26 mmol/L (22-29); Chloride 106 mmol/L (96-108); Creatinine Clr Calc Pharmacy 122.6; Estimated Glomerular Filt Rate > 60; Glucose Random 191 mg/dL (60-115); Potassium 3.4 mmol/L (3.3-5.1); Sodium 138 mmol/L (135-145)
[2023-11-15] MEDS: Tamsulosin HCL 0.4 MG CAPSULE PO (08:00)
[2023-11-15] MEDS: Gabapentin 300 MG CAPSULE PO ×3 (08:00→21:49)
[2023-11-15] MEDS: Losartan Potassium 50 MG TABLET PO (08:00)
[2023-11-15] MEDS: 0.9 % Sodium Chloride Flush 3 ML SYRINGE IVFLUSH ×2 (08:00→17:01)
[2023-11-15] MEDS: Aspirin Enteric Coated 81 MG TABLET.DR PO (08:00)
[2023-11-15] MEDS: Insulin Lispro 100 UNIT/ML 3 ML VIAL SUBCUT ×4 (08:00→21:51)
[2023-11-15] MEDS: Acetaminophen 325 MG TABLET 650 MG PO (08:02)
--- NOTE | 2023-11-15 08:43 | PM.PNORT ---
Subjective Subjective Date of Service: 11/15/23 Principal diagnosis: left dorsal hand infection Interval history: POD 1 s/p Left hand I&D no over night events resting in bed with splint intact Physical Exam Vital Signs: Vital Signs: Last Vital Signs Temp 99.9 F 11/15/23 07:40 Pulse 84 11/15/23 07:40 Resp 20 11/15/23 07:40 BP 159/72 H 11/15/23 07:40 Pulse Ox 100 11/15/23 07:40 O2 Del Method Nasal Cannula 11/15/23 07:40 O2 Flow Rate 2 11/15/23 07:40 Oxygen Flow Rate 2 11/14/23 09:57 BMI result Body Mass Index 36.3 Resp: Effort & Inspection: audible wheezes Extrem: Other: left dorsal hand with incision of LF MCP that is draining. COntinued swelling over dorsum of the hand with tenderness. No volar involvmeent but extending up into dorsum of wrist. Extensors intact but paionful Procedures Date of Service Date of Service: 11/15/23 Progress Note: A&P Assessment and plan (1) Infection of left hand: Status: Acute Assessment and Plan: cont abx will discuss with Dr jonas and need for repeat I&D ROM of the hand Time Spent With Patient Time: Total time managing care of this patient today ____ minutes. Quality Stroke Does the patient have a stroke diagnosis?: No VTE Prior VTE?: No VTE Risk Level:: Medical - moderate - high VTE Device Contraindication: Treatment Not Indicated VTE Drug Contraindication: N/A - Med Ordered
[2023-11-15 10:16] VITALS: BMI 36.3
--- NOTE | 2023-11-15 10:19 | MHC.CLN ---
PT WITH INCREASED NUTRITION RISK R/T PRESSURE INJURY POOR PO CATERERS HELPER DIET RX: 2000DM -APPROPRIATE RECOMMEND ADDING ENSURE MAX BID TO PROMOTE WOUND HEALING SUPP TO PROVIDE 300KCALS, 60G PROTEIN MONITOR PO AND ENCOURAGE SUPPLEMENTS SEE ALSO FULL CLINICAL NUTRITION ASSESSMENT
[2023-11-15 10:54] LABS: Glucose, Whole Blood 241 mg/dL (60-115)
--- NOTE | 2023-11-15 11:20 | MHC.CM.PN ---
Per ROUNDS discussion, Patient is not yet medically cleared for dc (2 IV ABT for hand infection); home is the goal and CM will continue to follow.
--- NOTE | 2023-11-15 11:48 | P.PNIM_ITS ---
Subjective Subjective Date of Service: 11/15/23 Review of Systems Follow up hand infection doing ok, WBC still elevated Physical Exam 2 Vital Signs: Vital Signs: Last Vital Signs Temp 99.9 F 11/15/23 07:40 Pulse 84 11/15/23 07:40 Resp 20 11/15/23 07:40 BP 159/72 H 11/15/23 07:40 Pulse Ox 100 11/15/23 07:40 O2 Del Method Nasal Cannula 11/15/23 07:40 O2 Flow Rate 2 11/15/23 07:40 Oxygen Flow Rate 2 11/14/23 09:57 BMI result Body Mass Index 36.3 Appearing in no acute distress lung sounds are clear to auscultation heart regular rate rhythm, clear S1, S2 positive bowel sounds, abdomen is soft, nontender neuro patient is alert x3, no focal deficits Left hand dressing intact Objective Data Active Medications Acetaminophen (Acetaminophen 325 Mg Tablet) 650 mg PO Q6H PRN PRN Reason: Pain, Mild (Pain Scale 1-3), fever or headache Last Admin: 11/15/23 08:02 Dose: 650 mg Documented By: ELMA Aspirin (Aspirin Enteric Coated 81 Mg Tablet.) 81 mg PO DAILY [facility] Last Admin: 11/15/23 08:00 Dose: 81 mg Documented By: ELMA Atorvastatin Calcium (Atorvastatin Calcium 80 Mg Tablet) 80 mg PO BEDTIME [facility] Last Admin: 11/14/23 21:32 Dose: 80 mg Documented By: ANGELINA Calcium Carbonate (Calcium Carbonate 750 Mg Tab.Chew) 750 mg PO Q4H PRN PRN Reason: Heartburn Docusate Sodium (Docusate Sodium 100 Mg Capsule) 200 mg PO BEDTIME PRN PRN Reason: Constipation Gabapentin (Gabapentin 300 Mg Capsule) 300 mg PO TID [facility] Last Admin: 11/15/23 08:00 Dose: 300 mg Documented By: ELMA Glucose (Glucose Gel 15 Gm Gel..Gram.) 15 gm PO Q15M PRN; Protocol PRN Reason: per Hypoglycemia Standing Ord. Hydromorphone HCl (Hydromorphone Hcl 1 Mg/Ml Syringe) 1 mg IVPUSH Q4H PRN; Protocol PRN Reason: Pain, Severe (Pain Scale 7-10) Last Admin: 11/14/23 21:45 Dose: 1 mg Documented By: HO.SALMOD Hydroxyzine HCl (Hydroxyzine Hcl 50 Mg Tablet) 50 mg PO BID PRN PRN Reason: Anxiety Last Admin: 11/14/23 08:14 Dose: 50 mg Documented By: ANISHA Dextrose (D10) 250 mls @ 750 mls/hr IV Q15M PRN; Protocol PRN Reason: per Hypoglycemia Standing Ord. Piperacillin Sod/Tazobactam (Sod 4.5 gm/ Sodium Chloride) 100 mls @ 200 mls/hr IV Q6H [facility] Last Infusion: 11/15/23 10:22 Dose: Infused Documented By: ELMA Vancomycin HCl 1,500 mg/ (Sodium Chloride) 500 mls @ 333.333 mls/hr IV Q12H [facility] Last Infusion: 11/15/23 08:04 Dose: Infused Documented By: ELMA Insulin Glargine (Insulin Glargine,Hum.Rec.Anlog 100 Unit/Ml 10 Ml Vial) 15 unit SUBCUT BEDTIME [facility] Last Admin: 11/14/23 21:31 Dose: 15 unit Documented By: ANGELINA Insulin Human Lispro (Insulin Lispro 100 Unit/Ml 3 Ml Vial) 0 unit SUBCUT QIDACHS [facility]; Protocol Last Admin: 11/15/23 08:00 Dose: 2 unit Documented By: ELMA Losartan Potassium (Losartan Potassium 50 Mg Tablet) 50 mg PO DAILY [facility]; Protocol Last Admin: 11/15/23 08:00 Dose: 50 mg Documented By: ELMA Magnesium Hydroxide (Milk Of Magnesia 30 Ml Oral.Susp) 30 ml PO DAILY PRN PRN Reason: Constipation Melatonin (Melatonin 3 Mg Tablet) 6 mg PO BEDTIME PRN PRN Reason: Insomnia Ondansetron HCl (Ondansetron Hcl 4 Mg/2 Ml Vial) 4 mg IVPUSH Q8H PRN PRN Reason: Nausea and Vomiting Pharmacy Consult (Consult Rx Vancomycin Dosing) 1 each MISCELLANE DAILY PRN PRN Reason: Consult order Polyethylene Glycol (Polyethylene Glycol 3350 17 Gm Powd.Pack) 17 gm PO DAILY PRN PRN Reason: Constipation Sodium Chloride (0.9 % Sodium Chloride Flush 3 Ml Syringe) 3 ml IVFLUSH QSHIFT [facility] Last Admin: 11/15/23 08:00 Dose: 3 ml Documented By: ELMA Tamsulosin HCl (Tamsulosin Hcl 0.4 Mg Capsule) 0.4 mg PO DAILY [facility] Last Admin: 11/15/23 08:00 Dose: 0.4 mg Documented By: ELMA Labs 11/15/23 07:29 11/15/23 07:29 Labs: Laboratory Results - last 24 hr 11/13/23 11/14/23 11/14/23 07:25 11:58 15:07 MCV MCH MCHC RDW Plt Count MPV Absolute Nucleated RBC Nucleated RBC % (auto) Smear Path Review SEE NOTE Hold Purple Top Anion Gap Estim Creat Clear Calc Estimated GFR POC Glucose 92 Random Glucose Lactic Acid Calcium Random Vancomycin 12.1 L 11/14/23 11/14/23 11/14/23 15:54 20:35 23:27 MCV MCH MCHC RDW Plt Count MPV Absolute Nucleated RBC Nucleated RBC % (auto) Smear Path Review Hold Purple Top Anion Gap Estim Creat Clear Calc Estimated GFR POC Glucose 189 H 182 H 228 H Random Glucose Lactic Acid Calcium Random Vancomycin 11/15/23 11/15/23 11/15/23 01:03 05:40 06:50 MCV MCH MCHC RDW Plt Count MPV Absolute Nucleated RBC Nucleated RBC % (auto) Smear Path Review Hold Purple Top SEE NOTE Anion Gap Estim Creat Clear Calc 114.5 Estimated GFR > 60 POC Glucose 171 H Random Glucose Lactic Acid 1.2 Calcium Random Vancomycin 11/15/23 11/15/23 07:29 10:48 MCV 86.9 MCH 28.1 MCHC 32.3 RDW 14.6 Plt Count 251 MPV 10.2 Absolute Nucleated RBC 0.000 Nucleated RBC % (auto) 0.0 Smear Path Review Hold Purple Top Anion Gap 9 L Estim Creat Clear Calc 122.6 Estimated GFR > 60 POC Glucose 241 H Random Glucose 191 H Lactic Acid Calcium 8.7 Random Vancomycin Microbiology Microbiology Results: Microbiology 11/12/23 16:21 Blood Culture - Preliminary Blood - Venous No growth after 48 hours. 11/12/23 16:21 Blood Culture - Preliminary Blood - Venous No growth after 48 hours. Assessment and Plan (1) Infection of left hand: Status: Acute Plan This is a 58-year-old male with pertinent history of polysubstance IV drug use disorder, congestive heart failure with reduced ejection fraction, history of AFib cardiac arrest in 10/27/2022, insulin-dependent diabetes mellitus, hypertension, mixed hyperlipidemia who presents to the emergency department for concerns of hand infection. Sepsis due to left hand abscess developed fever overnight with tachycardia 11/14/23 WBC trending down continue IV vancomycin and Zosyn. blood culture neg after 24 hrs s/p I&D 11/14/23 as per ortho Acute toxic encephalopathy due to opioid use resolved Polysubstance use disorder Consulting Addiction Team following>rec monomer recovery operator to meet while inpatient Monitor for withdrawal. Hypokalemia Repleted check mag Insulin-dependent diabetes mellitus ss, ada diet Congestive heart failure with reduced ejection fraction No decompensation during admission. Patient on spironolactone, ARB, Lasix. Not on BB due to cocaine use Hypertension Continue home antihypertensives Mixed hyperlipidemia On statin CAD On aspirin and statin DVT prophylaxis: Mechanical attending Dr. Sandy Full code continue hospital stay for IV antibiotics (as above), which is not possible in a lesser acute setting. Quality Stroke Does the patient have a stroke diagnosis?: No VTE Prior VTE?: No VTE Risk Level:: Medical - moderate - high VTE Device Contraindication: Treatment Not Indicated VTE Drug Contraindication: N/A - Med Ordered
--- NOTE | 2023-11-15 14:38 | HO.POSTANES ---
Post Anesthesia Evaluation Post Anesthesia Evaluation Date of Service: 11/15/23 Vital Signs: Vital Signs Temp Pulse Resp BP Pulse Ox O2 Del Method O2 Flow Rate 11/15/23 07:40 99.9 F 84 20 159/72 H 100 Nasal Cannula 2 Anesthesia: General LMA Mental Status: Awake Pain Control: Satisfactory Nausea/Vomiting: None Hydration: Adequate Anesthesia-Related Issues: No Anes. Related Issues
[2023-11-15 16:00] VITALS: BP 141/80; PULSE 87; PULSE 97; RESP 18; TEMP 37; O2SAT 99
[2023-11-15 16:30] LABS: Vancomycin Random 14.9 mcg/mL (15-20)
--- NOTE | 2023-11-15 16:38 | HE.PHANOTE ---
RE: vanco Trough on 11/14 came back at 14.8mg/L; changed dose to 1000mg Q8H with predicted AUC of 488mg/L, trough of 15.2. Next level to be drawn 11/15 @1500
[2023-11-15] MEDS: HYDROmorphone HCl 1 MG/ML SYRINGE IVPUSH ×2 (16:49→21:53)
[2023-11-15 16:51] LABS: Glucose, Whole Blood 175 mg/dL (60-115)
[2023-11-15] MEDS: vancomycin HCL 1,000 MG in 0.9 % Sodium Chloride 250 ML 270 MG IV (18:24)
--- NOTE | 2023-11-15 18:34 | MHC.RECOVSUP ---
? Reason for consult Recovery Support o Current location: [facility] o Identified substance use concern: opiates - Withdrawal - Support ? Intervention: o Community resources provided o Harm reduction discussion ? Plan: o Referral to [facility] o Patient to follow up with [facility] after discharge ? Additional information: Met with patient and we talked about recovery.. We had a MAT talk and patient is open to suboxone. He did have a bad experience. but he know that he did not take from a doctor. Patient also stated that he would/want to go to a long-term recovery program. He stated that he want to get better.
[2023-11-15 20:21] VITALS: BP 164/71; PULSE 92; RESP 18; TEMP 36.9; O2SAT 99
[2023-11-15 21:16] LABS: Glucose, Whole Blood 162 mg/dL (60-115)
[2023-11-15] MEDS: Atorvastatin Calcium 80 MG TABLET PO (21:49)
[2023-11-15] MEDS: Insulin Glargine,Hum.rec.anlog 100 UNIT/ML 10 ML VIAL 15 UNIT SUBCUT (21:51)
--- NOTE | 2023-11-15 22:59 | HO.WOUND ---
Wound Consult: Initial 58yr old?male admitted to [facility] on 11/12/23 - See progress notes and H&P for detailed history.? Wound consult placed for Left Buttock wound POA.? Patient agreeable to assessment and photo documentation.? Left ischium Etiology: Unstageable Pressure Injury POA Measurements: 3cm x 3cm x 0.2cm Wound Bed: cluster of full thickness tissue loss with thin yellow slough adherent to wound bed Drainage / Odor: no odor drainage noted Edges: ? well defined Jessie wound: MASD - No Induration, Fluctuance noted Pain: pain reported Goals of Treatment: Foam dressing for moist wound healing Triad to aid in autolytic debridement Recommendations: 1. Turn and Reposition every 2 hours and as needed for patient comfort.? Use pillows or wedges to support off loading positions. 2. Off Load all bony prominences with use of pillows and heel boots if needed.? Apply Preventative foams where needed. ? 3. Monitor for incontinence and moisture control, use barrier creams when needed for prevention and treatment. 4. Provide adequate and supplemental nutrition.? 5. When applicable maintain blood glucose levels per Providers order. 6. Left Ischium - Off Load Pressure - Cleanse with PH balanced bath wipes, pat dry. Apply Triad to wound bed cover with foam dressing, peel back and assess Q shift and change every 3 days and PRN.
[2023-11-15 23:58] VITALS: BP 149/75; PULSE 96; RESP 19; O2SAT 99
[2023-11-16] VITALS (14 sets, daily range): BP systolic 133–175; BP diastolic 67–83; PULSE 86–99; RESP 16–20; TEMP 36.2–37.3; O2SAT 92–98
[2023-11-16] MEDS: 0.9 % Sodium Chloride Flush 3 ML SYRINGE IVFLUSH ×3 (00:17→22:58)
[2023-11-16] MEDS: vancomycin HCL 1,000 MG in 0.9 % Sodium Chloride 250 ML 270 MG IV ×2 (00:18→08:22)
[2023-11-16] MEDS: Piperacillin Sodium/Tazobactam 4.5 GM in 0.9 % Sodium Chloride 100 ML IV ×4 (04:31→22:57)
[2023-11-16 05:58] LABS: Hematocrit 31.1 % (42.0-52.0); Hemoglobin 10.3 g/dl (14.0-18.0); Mean Corpuscular HGB Conc 33.1 g/dl (31.0-36.0); Mean Corpuscular Hemoglobin 28.5 pg (27.0-33.0); Mean Corpuscular Volume 85.9 fL (80.0-98.0); Mean Platelet Volume 10.4 fL (9.4-12.4); Platelet Count 290 X10*3/uL (160-400); Red Blood Count 3.62 X10*6/uL (4.60-5.80); Red Cell Distribution Width 14.7 % (11.0-16.0); White Blood Count 15.8 X10*3/uL (4.8-10.8)
[2023-11-16 06:08] LABS: Anion Gap 11 (12-20); Blood Urea Nitrogen 9 mg/dL (9-16); Calcium 8.9 mg/dL (8.4-10.2); Carbon Dioxide 26 mmol/L (22-29); Chloride 104 mmol/L (96-108); Creatinine Clr Calc Pharmacy 122.6; Estimated Glomerular Filt Rate > 60; Glucose Random 144 mg/dL (60-115); Potassium 3.3 mmol/L (3.3-5.1); Sodium 138 mmol/L (135-145)
[2023-11-16 06:59] LABS: Glucose, Whole Blood 151 mg/dL (60-115)
[2023-11-16] MEDS: Losartan Potassium 50 MG TABLET 100 MG PO (08:21)
[2023-11-16] MEDS: Tamsulosin HCL 0.4 MG CAPSULE PO (08:21)
[2023-11-16] MEDS: Gabapentin 300 MG CAPSULE PO ×3 (08:21→20:27)
--- NOTE | 2023-11-16 10:48 | P.CONAN_ITS ---
HPI - Anesthesia Eval Consult details Narrative: 58 yo male patient for I&D of Left hand PMFSH Active Problems Active Problems: All Active Problems Infection of left hand (Acute) Abscess of dorsum of left hand (Acute) Chronic constipation (Acute) Encounter for screening colonoscopy (Acute) Toxic encephalopathy (Acute) Opioid use disorder (Acute) Abnormal head CT (Acute) Transaminitis (Acute) Sepsis (Acute) Acute metabolic encephalopathy (Acute) Substance abuse (Acute) Acute alteration in mental status (Acute) Fever (Acute) Cardiomyopathy (Acute) Ventricular fibrillation (Acute) Morbid obesity (Acute) Hypersomnia (Acute) Hepatitis B core antibody positive (Acute) Morbid obesity (Acute) Uncontrolled type 2 diabetes mellitus (Acute) Cocaine abuse (Acute) Tobacco abuse (Acute) Chronic HFrEF (heart failure with reduced ejection fraction) (Acute) Atypical chest pain (Acute) Opioid use disorder, severe, in controlled environment, dependence (Acute) NICM (nonischemic cardiomyopathy) (Acute) Past Medical History Medical History Type 2 diabetes mellitus with unspecified complications Essential hypertension Unstable angina History of CVA (cerebrovascular accident) Diabetes HTN (hypertension) Morbid obesity Chest pain Family History Family History Other CAD (coronary artery disease) Diabetes HTN (hypertension) Family history of problems with anesthesia: No Surgical History Surgical History No pertinent past surgical history History of Problems with Anesthesia: No Social History Social History Household Members: None Housing: Apartment Do you presently have visiting nurse or other home services: Yes ([facility]) Patient Tobacco Use Status: Current everyday Tobacco user Tobacco use type: Cigarette e-Cigarette/Vaping Use: Never Used Second Hand Smoke Exposure: No Substance Use Type: Heroin service: No Current occupational status: unemployed Meds Allergies Allergy/AdvReac Type Severity Reaction Status Date / Time Penicillins [PCN] Allergy Intermediate HIVES Verified 11/12/23 15:44 Active Medications: Current Medications Acetaminophen (Acetaminophen 325 Mg Tablet) 650 mg PO Q6H PRN PRN Reason: Pain, Mild (Pain Scale 1-3), fever or headache Last Admin: 11/15/23 08:02 Dose: 650 mg Aspirin (Aspirin Enteric Coated 81 Mg Tablet.Dr) 81 mg PO DAILY [facility] Last Admin: 11/16/23 08:40 Dose: Not Given Atorvastatin Calcium (Atorvastatin Calcium 80 Mg Tablet) 80 mg PO BEDTIME [facility] Last Admin: 11/15/23 21:49 Dose: 80 mg Calcium Carbonate (Calcium Carbonate 750 Mg Tab.Chew) 750 mg PO Q4H PRN PRN Reason: Heartburn Docusate Sodium (Docusate Sodium 100 Mg Capsule) 200 mg PO BEDTIME PRN PRN Reason: Constipation Gabapentin (Gabapentin 300 Mg Capsule) 300 mg PO TID [facility] Last Admin: 11/16/23 08:21 Dose: 300 mg Glucose (Glucose Gel 15 Gm Gel..Gram.) 15 gm PO Q15M PRN; Protocol PRN Reason: per Hypoglycemia Standing Ord. Hydromorphone HCl (Hydromorphone Hcl 1 Mg/Ml Syringe) 1 mg IVPUSH Q4H PRN; Protocol PRN Reason: Pain, Severe (Pain Scale 7-10) Last Admin: 11/15/23 21:53 Dose: 1 mg Hydroxyzine HCl (Hydroxyzine Hcl 50 Mg Tablet) 50 mg PO BID PRN PRN Reason: Anxiety Last Admin: 11/14/23 08:14 Dose: 50 mg Dextrose (D10) 250 mls @ 750 mls/hr IV Q15M PRN; Protocol PRN Reason: per Hypoglycemia Standing Ord. Piperacillin Sod/Tazobactam (Sod 4.5 gm/ Sodium Chloride) 100 mls @ 200 mls/hr IV Q6H [facility] Last Infusion: 11/16/23 05:04 Dose: Infused Vancomycin HCl 1,000 mg/ (Sodium Chloride) 270 mls @ 270 mls/hr IV Q8H [facility] Last Admin: 11/16/23 08:22 Dose: 270 mls/hr Insulin Glargine (Insulin Glargine,Hum.Rec.Anlog 100 Unit/Ml 10 Ml Vial) 15 unit SUBCUT BEDTIME [facility] Last Admin: 11/15/23 21:51 Dose: 15 unit Insulin Human Lispro (Insulin Lispro 100 Unit/Ml 3 Ml Vial) 0 unit SUBCUT QIDACHS [facility]; Protocol Last Admin: 11/16/23 08:12 Dose: Not Given Losartan Potassium (Losartan Potassium 50 Mg Tablet) 100 mg PO DAILY [facility]; Protocol Last Admin: 11/16/23 08:21 Dose: 100 mg Magnesium Hydroxide (Milk Of Magnesia 30 Ml Oral.Susp) 30 ml PO DAILY PRN PRN Reason: Constipation Melatonin (Melatonin 3 Mg Tablet) 6 mg PO BEDTIME PRN PRN Reason: Insomnia Ondansetron HCl (Ondansetron Hcl 4 Mg/2 Ml Vial) 4 mg IVPUSH Q8H PRN PRN Reason: Nausea and Vomiting Pharmacy Consult (Consult Rx Vancomycin Dosing) 1 each MISCELLANE DAILY PRN PRN Reason: Consult order Polyethylene Glycol (Polyethylene Glycol 3350 17 Gm Powd.Pack) 17 gm PO DAILY PRN PRN Reason: Constipation Sodium Chloride (0.9 % Sodium Chloride Flush 3 Ml Syringe) 3 ml IVFLUSH QSHIFT [facility] Last Admin: 11/16/23 08:39 Dose: Not Given Tamsulosin HCl (Tamsulosin Hcl 0.4 Mg Capsule) 0.4 mg PO DAILY [facility] Last Admin: 11/16/23 08:21 Dose: 0.4 mg Home Medications ?Medication ?Instructions ?Recorded ?Confirmed ?Last Taken ?Type aspirin 81 mg tablet,delayed 81 mg PO DAILY 01/18/23 11/13/23 Unknown History release docusate sodium 100 mg capsule 100 - 200 mg PO BEDTIME PRN 01/18/23 11/13/23 Unknown History constipation insulin glargine 100 unit/mL (3 30 unit subcut BID 01/18/23 11/13/23 Unknown History mL) subcutaneous pen (Lantus Solostar U-100 Insulin) ammonium lactate 12 % topical cream 1 appl topical DAILY PRN Dry Skin 11/13/23 11/13/23 Unknown History atorvastatin 80 mg tablet 80 mg PO BEDTIME 11/13/23 11/13/23 Unknown History docusate sodium 100 mg capsule 200 mg PO BEDTIME PRN Constipation 11/13/23 11/13/23 Unknown History (Colace) gabapentin 300 mg capsule 300 mg PO TID 11/13/23 11/13/23 Unknown History hydroxyzine HCl 50 mg tablet 50 mg PO BID PRN Anxiety 11/13/23 11/13/23 Unknown History losartan 50 mg tablet 50 mg PO DAILY 11/13/23 11/13/23 Unknown History metformin 500 mg tablet,extended 500 mg PO BID 11/13/23 11/13/23 Unknown History release 24 hr polyethylene glycol 3350 17 17 g PO DAILY PRN Constipation 11/13/23 11/13/23 Unknown History gram/dose oral powder (Miralax) tamsulosin 0.4 mg capsule 0.4 mg PO DAILY 11/13/23 11/13/23 Unknown History Exam Height,Weight and Vital Signs: Height 5 ft 5 in Weight 98.883 kg Last Vital Signs Temp 97.8 F 11/16/23 07:26 Pulse 89 11/16/23 07:26 Resp 20 11/16/23 07:26 BP 175/81 H 11/16/23 07:26 Pulse Ox 98 11/16/23 09:00 O2 Del Method Room Air 11/16/23 09:00 O2 Flow Rate 2 11/16/23 07:26 Oxygen Flow Rate 2 11/14/23 09:57 Temp Pulse Resp BP Pulse Ox O2 Del Method O2 Flow Rate 97.6 F 88 16 162/78 H 98 Room Air 2 11/16/23 11:00 11/16/23 11:05 11/16/23 11:05 11/16/23 11:00 11/16/23 11:00 11/16/23 11:00 11/16/23 07:26 Pertinent Lab Results Pertinent Lab Results: Laboratory Tests 11/12/23 11/12/23 11/13/23 16:16 20:55 07:25 WBC 25.3 H 31.3 H* RBC 4.16 L 3.78 L Hgb 11.7 L 10.6 L Hct 35.8 L 32.5 L MCV 86.1 86.0 MCH 28.1 28.0 MCHC 32.7 32.6 RDW 14.2 14.3 Plt Count 234 223 MPV 10.5 10.5 Immature Gran % (Auto) 1.3 H Cancelled Neut % (Auto) 84.5 H Cancelled Lymph % (Auto) 7.8 L Cancelled Davis % (Auto) 5.9 Cancelled Eos % (Auto) 0.2 Cancelled Baso % (Auto) 0.3 Cancelled Lymph # (Auto) 2.0 Cancelled Davis # (Auto) 1.5 H Cancelled Eos # (Auto) 0.0 Cancelled Baso # (Auto) 0.1 Cancelled Abs Immat Gran (auto) 0.34 H Cancelled Absolute Neuts (auto) 21.4 H Cancelled Absolute Nucleated RBC 0.000 0.000 Nucleated RBC % (auto) 0.0 0.0 Neutrophils % (Manual) 82 H Band Neutrophils % 1 L Lymphocytes % (Manual) 8 L Monocytes % (Manual) 9 Abs Neuts (Manual) 26.0 H Lymphocytes # (Manual) 2.5 Monocytes # (Manual) 2.8 H Toxic Vacuolation PRESENT Platelet Estimate NORMAL Plt Morphology Comment NORMAL RBC Morphology NOTED Krystyna Cells 1+ (0-2) Acanthocytes (Spur) 1+ (0-2) Schistocytes 1+ (0-2) Smear Tech's Comments VERIFIED Smear Path Review SEE NOTE ESR 77 H Hold Purple Top Sodium 136 140 Potassium 3.0 L D 3.4 Chloride 97 105 Carbon Dioxide 29 26 Anion Gap 13 12 BUN 9 9 Creatinine 0.88 0.81 Estim Creat Clear Calc 98.9 107.4 Estimated GFR > 60 > 60 POC Glucose 124 H Random Glucose 142 H 137 H Lactic Acid 1.9 Calcium 9.0 8.4 D Magnesium 1.7 C-Reactive Protein 26.79 H Lipase 21 Random Vancomycin 11/13/23 11/13/23 11/13/23 08:01 11:41 15:06 WBC RBC Hgb Hct MCV MCH MCHC RDW Plt Count MPV Immature Gran % (Auto) Neut % (Auto) Lymph % (Auto) Davis % (Auto) Eos % (Auto) Baso % (Auto) Lymph # (Auto) Davis # (Auto) Eos # (Auto) Baso # (Auto) Abs Immat Gran (auto) Absolute Neuts (auto) Absolute Nucleated RBC Nucleated RBC % (auto) Neutrophils % (Manual) Band Neutrophils % Lymphocytes % (Manual) Monocytes % (Manual) Abs Neuts (Manual) Lymphocytes # (Manual) Monocytes # (Manual) Toxic Vacuolation Platelet Estimate Plt Morphology Comment RBC Morphology Krystyna Cells Acanthocytes (Spur) Schistocytes Smear Tech's Comments Smear Path Review ESR Hold Purple Top Sodium Potassium Chloride Carbon Dioxide Anion Gap BUN Creatinine Estim Creat Clear Calc Estimated GFR POC Glucose 164 H 113 Random Glucose Lactic Acid Calcium Magnesium C-Reactive Protein Lipase Random Vancomycin 13.8 L 11/13/23 11/13/23 11/14/23 16:28 20:55 06:21 WBC RBC Hgb Hct MCV MCH MCHC RDW Plt Count MPV Immature Gran % (Auto) Neut % (Auto) Lymph % (Auto) Davis % (Auto) Eos % (Auto) Baso % (Auto) Lymph # (Auto) Davis # (Auto) Eos # (Auto) Baso # (Auto) Abs Immat Gran (auto) Absolute Neuts (auto) Absolute Nucleated RBC Nucleated RBC % (auto) Neutrophils % (Manual) Band Neutrophils % Lymphocytes % (Manual) Monocytes % (Manual) Abs Neuts (Manual) Lymphocytes # (Manual) Monocytes # (Manual) Toxic Vacuolation Platelet Estimate Plt Morphology Comment RBC Morphology [place] Cells Acanthocytes (Spur) Schistocytes Smear Tech's Comments Smear Path Review ESR Hold Purple Top Sodium Potassium Chloride Carbon Dioxide Anion Gap BUN Creatinine 0.76 Estim Creat Clear Calc 114.5 Estimated GFR > 60 POC Glucose 189 H 180 H Random Glucose Lactic Acid Calcium Magnesium C-Reactive Protein Lipase Random Vancomycin 11/14/23 11/14/23 11/14/23 07:54 07:55 11:58 WBC 29.5 H RBC 3.78 L Hgb 10.7 L Hct 32.7 L MCV 86.5 MCH 28.3 MCHC 32.7 RDW 14.4 Plt Count 236 MPV 10.3 Immature Gran % (Auto) Neut % (Auto) Lymph % (Auto) Davis % (Auto) Eos % (Auto) Baso % (Auto) Lymph # (Auto) Davis # (Auto) Eos # (Auto) Baso # (Auto) Abs Immat Gran (auto) Absolute Neuts (auto) Absolute Nucleated RBC 0.000 Nucleated RBC % (auto) 0.0 Neutrophils % (Manual) Band Neutrophils % Lymphocytes % (Manual) Monocytes % (Manual) Abs Neuts (Manual) Lymphocytes # (Manual) Monocytes # (Manual) Toxic Vacuolation Platelet Estimate Plt Morphology Comment RBC Morphology Krystyna Cells Acanthocytes (Spur) Schistocytes Smear Tech's Comments Smear Path Review ESR Hold Purple Top Sodium 140 Potassium 3.1 L Chloride 106 Carbon Dioxide 26 Anion Gap 11 L BUN 8 L Creatinine 0.73 Estim Creat Clear Calc 119.2 Estimated GFR > 60 POC Glucose 102 92 Random Glucose 103 Lactic Acid Calcium 8.8 Magnesium 1.7 C-Reactive Protein Lipase Random Vancomycin 11/14/23 11/14/23 11/14/23 15:07 15:54 20:35 WBC RBC Hgb Hct MCV MCH MCHC RDW Plt Count MPV Immature Gran % (Auto) Neut % (Auto) Lymph % (Auto) Davis % (Auto) Eos % (Auto) Baso % (Auto) Lymph # (Auto) Davis # (Auto) Eos # (Auto) Baso # (Auto) Abs Immat Gran (auto) Absolute Neuts (auto) Absolute Nucleated RBC Nucleated RBC % (auto) Neutrophils % (Manual) Band Neutrophils % Lymphocytes % (Manual) Monocytes % (Manual) Abs Neuts (Manual) Lymphocytes # (Manual) Monocytes # (Manual) Toxic Vacuolation Platelet Estimate Plt Morphology Comment RBC Morphology Krystyna Cells Acanthocytes (Spur) Schistocytes Smear Tech's Comments Smear Path Review ESR Hold Purple Top Sodium Potassium Chloride Carbon Dioxide Anion Gap BUN Creatinine Estim Creat Clear Calc Estimated GFR POC Glucose 189 H 182 H Random Glucose Lactic Acid Calcium Magnesium C-Reactive Protein Lipase Random Vancomycin 12.1 L 11/14/23 11/15/23 11/15/23 23:27 01:03 05:40 WBC RBC Hgb Hct MCV MCH MCHC RDW Plt Count MPV Immature Gran % (Auto) Neut % (Auto) Lymph % (Auto) Davis % (Auto) Eos % (Auto) Baso % (Auto) Lymph # (Auto) Davis # (Auto) Eos # (Auto) Baso # (Auto) Abs Immat Gran (auto) Absolute Neuts (auto) Absolute Nucleated RBC Nucleated RBC % (auto) Neutrophils % (Manual) Band Neutrophils % Lymphocytes % (Manual) Monocytes % (Manual) Abs Neuts (Manual) Lymphocytes # (Manual) Monocytes # (Manual) Toxic Vacuolation Platelet Estimate Plt Morphology Comment RBC Morphology [place] Cells Acanthocytes (Spur) Schistocytes Smear Tech's Comments Smear Path Review ESR Hold Purple Top SEE NOTE Sodium Potassium Chloride Carbon Dioxide Anion Gap BUN Creatinine 0.76 Estim Creat Clear Calc 114.5 Estimated GFR > 60 POC Glucose 228 H Random Glucose Lactic Acid 1.2 Calcium Magnesium C-Reactive Protein Lipase Random Vancomycin 11/15/23 11/15/23 11/15/23 06:50 07:29 10:48 WBC 20.7 H RBC 3.67 L Hgb 10.3 L Hct 31.9 L MCV 86.9 MCH 28.1 MCHC 32.3 RDW 14.6 Plt Count 251 MPV 10.2 Immature Gran % (Auto) Neut % (Auto) Lymph % (Auto) Davis % (Auto) Eos % (Auto) Baso % (Auto) Lymph # (Auto) Davis # (Auto) Eos # (Auto) Baso # (Auto) Abs Immat Gran (auto) Absolute Neuts (auto) Absolute Nucleated RBC 0.000 Nucleated RBC % (auto) 0.0 Neutrophils % (Manual) Band Neutrophils % Lymphocytes % (Manual) Monocytes % (Manual) Abs Neuts (Manual) Lymphocytes # (Manual) Monocytes # (Manual) Toxic Vacuolation Platelet Estimate Plt Morphology Comment RBC Morphology [place] Cells Acanthocytes (Spur) Schistocytes Smear Tech's Comments Smear Path Review ESR Hold Purple Top Sodium 138 Potassium 3.4 Chloride 106 Carbon Dioxide 26 Anion Gap 9 L BUN 8 L Creatinine 0.71 Estim Creat Clear Calc 122.6 Estimated GFR > 60 POC Glucose 171 H 241 H Random Glucose 191 H Lactic Acid Calcium 8.7 Magnesium C-Reactive Protein Lipase Random Vancomycin 11/15/23 11/15/23 11/15/23 15:06 16:31 20:46 WBC RBC Hgb Hct MCV MCH MCHC RDW Plt Count MPV Immature Gran % (Auto) Neut % (Auto) Lymph % (Auto) Davis % (Auto) Eos % (Auto) Baso % (Auto) Lymph # (Auto) Davis # (Auto) Eos # (Auto) Baso # (Auto) Abs Immat Gran (auto) Absolute Neuts (auto) Absolute Nucleated RBC Nucleated RBC % (auto) Neutrophils % (Manual) Band Neutrophils % Lymphocytes % (Manual) Monocytes % (Manual) Abs Neuts (Manual) Lymphocytes # (Manual) Monocytes # (Manual) Toxic Vacuolation Platelet Estimate Plt Morphology Comment RBC Morphology [place] Cells Acanthocytes (Spur) Schistocytes Smear Tech's Comments Smear Path Review ESR Hold Purple Top Sodium Potassium Chloride Carbon Dioxide Anion Gap BUN Creatinine Estim Creat Clear Calc Estimated GFR POC Glucose 175 H 162 H Random Glucose Lactic Acid Calcium Magnesium C-Reactive Protein Lipase Random Vancomycin 14.9 L 11/16/23 11/16/23 05:25 06:52 WBC 15.8 H RBC 3.62 L Hgb 10.3 L Hct 31.1 L MCV 85.9 MCH 28.5 MCHC 33.1 RDW 14.7 Plt Count 290 MPV 10.4 Immature Gran % (Auto) Neut % (Auto) Lymph % (Auto) Davis % (Auto) Eos % (Auto) Baso % (Auto) Lymph # (Auto) Davis # (Auto) Eos # (Auto) Baso # (Auto) Abs Immat Gran (auto) Absolute Neuts (auto) Absolute Nucleated RBC 0.000 Nucleated RBC % (auto) 0.0 Neutrophils % (Manual) Band Neutrophils % Lymphocytes % (Manual) Monocytes % (Manual) Abs Neuts (Manual) Lymphocytes # (Manual) Monocytes # (Manual) Toxic Vacuolation Platelet Estimate Plt Morphology Comment RBC Morphology [place] Cells Acanthocytes (Spur) Schistocytes Smear Tech's Comments Smear Path Review ESR Hold Purple Top Sodium 138 Potassium 3.3 Chloride 104 Carbon Dioxide 26 Anion Gap 11 L BUN 9 Creatinine 0.71 Estim Creat Clear Calc 122.6 Estimated GFR > 60 POC Glucose 151 H Random Glucose 144 H Lactic Acid Calcium 8.9 Magnesium C-Reactive Protein Lipase Random Vancomycin Airway Mallampati Class: II TM Dist: >3cm Neck ROM: Full Loose/Missing/Broken Teeth: Yes (Only a few teeth in. Denies broken or loose teeth) Heart: RRR Lungs: CTAB. Post respiratory treatment Assessment and Plan Assessment Anesthesia Assessment: Anesthesia Plan Discussed and Chart Reviewed Final Anesthetic Review Family History of Problems with Anesthesia: No History of Problems with Anesthesia: No NPO: Yes ASA Class: III and Emergency Final Preanesthetic Review: No Changes in Pt Med Stat, Meds/Allgs Chart Reviewed, Consent Obtained/Reviewed and Anes Risks/Benef Reviewed Patient Risk: Intermediate Procedure Risk: Low Anesthetic Plan Anesthetic Plan: GA Disposition: Standard PACU and Inp. Admit - Standard Bed
--- NOTE | 2023-11-16 10:53 | MHC.SHP ---
Pre-Procedural Eval Section A - 24 Hr Update-Section A only Date of Service: 11/16/23 The patient is an INPATIENT: Yes Changes since office visit: No Cold of Flu in the past 2 weeks, No New Medical Problems, No Changes in Medication and No Patient answered all questions The patient has been examined within 24 hours of the surgical procedure. The History & Physical has been completed within 30 days and I have reviewed it.: Yes Section B - Complete if H&P > 30 days Chief Complaint: Hand infection Allergies: Allergies Allergy/AdvReac Type Severity Reaction Status Date / Time Penicillins [PCN] Allergy Intermediate HIVES Verified 11/12/23 15:44 Plan I have reviewed the history and physical and performed a pertinent physical examination on my patient. No changes have occurred unless specified. Time Spent With Patient Time: Total time managing care of this patient today ____ minutes.
[2023-11-16] MEDS: Albuterol Sulfate (0.083%) 2.5 MG/3 ML VIAL.NEB INHALE (11:05)
--- NOTE | 2023-11-16 11:14 | PC.NURSE ---
Patient used heroin and crack cocaine last Wednesday, 11/11. Dr. Lizama made aware.
--- NOTE | 2023-11-16 11:16 | PC.NURSE ---
Patient arrived to preop with two PRN angios. #20 right arm and #22 left arm. #22 leaky, site removed.
[2023-11-16] MEDS: Lactated Ringers 1,000 ML 100 ML IVCONT (11:20)
[2023-11-16 11:26] LABS: Glucose, Whole Blood 121 mg/dL (60-115)
--- NOTE | 2023-11-16 11:39 | P.PNIM_ITS ---
Subjective Subjective Date of Service: 11/16/23 Review of Systems Follow up hand infection doing ok, WBC trending down Physical Exam 2 Vital Signs: Vital Signs: Last Vital Signs Temp 97.6 F 11/16/23 11:00 Pulse 88 11/16/23 11:05 Resp 16 11/16/23 11:05 BP 162/78 H 11/16/23 11:00 Pulse Ox 98 11/16/23 11:00 O2 Del Method Room Air 11/16/23 11:00 O2 Flow Rate 2 11/16/23 07:26 Oxygen Flow Rate 2 11/14/23 09:57 BMI result Body Mass Index 36.3 Appearing in no acute distress lung sounds are clear to auscultation heart regular rate rhythm, clear S1, S2 positive bowel sounds, abdomen is soft, nontender neuro patient is alert x3, no focal deficits Left hand surgical dressing intact Objective Data Active Medications Acetaminophen (Acetaminophen 325 Mg Tablet) 650 mg PO Q6H PRN PRN Reason: Pain, Mild (Pain Scale 1-3), fever or headache Last Admin: 11/15/23 08:02 Dose: 650 mg Documented By: ELMA Aspirin (Aspirin Enteric Coated 81 Mg Tablet.Dr) 81 mg PO DAILY [facility] Last Admin: 11/16/23 08:40 Dose: Not Given Documented By: RUDDY Non-Admin Reason: Surgery today Atorvastatin Calcium (Atorvastatin Calcium 80 Mg Tablet) 80 mg PO BEDTIME [facility] Last Admin: 11/15/23 21:49 Dose: 80 mg Documented By: JULIANA Calcium Carbonate (Calcium Carbonate 750 Mg Tab.Chew) 750 mg PO Q4H PRN PRN Reason: Heartburn Docusate Sodium (Docusate Sodium 100 Mg Capsule) 200 mg PO BEDTIME PRN PRN Reason: Constipation Fentanyl (Fentanyl Citrate/Pf 100 Mcg/2 Ml Vial) 25 mcg IVPUSH Q5M PRN PRN Reason: Pain, Moderate(Pain Scale 4-6) Stop: 11/16/23 17:03 Gabapentin (Gabapentin 300 Mg Capsule) 300 mg PO TID [facility] Last Admin: 11/16/23 08:21 Dose: 300 mg Documented By: RUDDY Glucose (Glucose Gel 15 Gm Gel..Gram.) 15 gm PO Q15M PRN; Protocol PRN Reason: per Hypoglycemia Standing Ord. Hydromorphone HCl (Hydromorphone Hcl 1 Mg/Ml Syringe) 1 mg IVPUSH Q4H PRN; Protocol PRN Reason: Pain, Severe (Pain Scale 7-10) Last Admin: 11/15/23 21:53 Dose: 1 mg Documented By: JULIANA Hydroxyzine HCl (Hydroxyzine Hcl 50 Mg Tablet) 50 mg PO BID PRN PRN Reason: Anxiety Last Admin: 11/14/23 08:14 Dose: 50 mg Documented By: ANISHA Dextrose (D10) 250 mls @ 750 mls/hr IV Q15M PRN; Protocol PRN Reason: per Hypoglycemia Standing Ord. Piperacillin Sod/Tazobactam (Sod 4.5 gm/ Sodium Chloride) 100 mls @ 200 mls/hr IV Q6H [facility] Last Admin: 11/16/23 11:06 Dose: 200 mls/hr Documented By: GEORGI Vancomycin HCl 1,000 mg/ (Sodium Chloride) 270 mls @ 270 mls/hr IV Q8H [facility] Last Infusion: 11/16/23 11:12 Dose: Infused Documented By: RUDDY Lactated Ringer's (Lr) 1,000 mls @ 100 mls/hr IVCONT .Q10H [facility] Last Admin: 11/16/23 11:20 Dose: 100 mls/hr Documented By: GEORGI Insulin Glargine (Insulin Glargine,Hum.Rec.Anlog 100 Unit/Ml 10 Ml Vial) 15 unit SUBCUT BEDTIME [facility] Last Admin: 11/15/23 21:51 Dose: 15 unit Documented By: JULIANA Insulin Human Lispro (Insulin Lispro 100 Unit/Ml 3 Ml Vial) 0 unit SUBCUT QIDACHS [facility]; Protocol Last Admin: 11/16/23 08:12 Dose: Not Given Documented By: RUDDY Non-Admin Reason: NPO Losartan Potassium (Losartan Potassium 50 Mg Tablet) 100 mg PO DAILY [facility]; Protocol Last Admin: 11/16/23 08:21 Dose: 100 mg Documented By: RUDDY Magnesium Hydroxide (Milk Of Magnesia 30 Ml Oral.Susp) 30 ml PO DAILY PRN PRN Reason: Constipation Melatonin (Melatonin 3 Mg Tablet) 6 mg PO BEDTIME PRN PRN Reason: Insomnia Ondansetron HCl (Ondansetron Hcl 4 Mg/2 Ml Vial) 4 mg IVPUSH Q8H PRN PRN Reason: Nausea and Vomiting Pharmacy Consult (Consult Rx Vancomycin Dosing) 1 each MISCELLANE DAILY PRN PRN Reason: Consult order Polyethylene Glycol (Polyethylene Glycol 3350 17 Gm Powd.Pack) 17 gm PO DAILY PRN PRN Reason: Constipation Sodium Chloride (0.9 % Sodium Chloride Flush 3 Ml Syringe) 3 ml IVFLUSH QSHIFT [facility] Last Admin: 11/16/23 08:39 Dose: Not Given Documented By: RUDDY Non-Admin Reason: IV Running Tamsulosin HCl (Tamsulosin Hcl 0.4 Mg Capsule) 0.4 mg PO DAILY [facility] Last Admin: 11/16/23 08:21 Dose: 0.4 mg Documented By: RUDDY Labs 11/16/23 05:25 11/16/23 05:25 Labs: Laboratory Results - last 24 hr 11/15/23 11/15/23 11/15/23 15:06 16:31 20:46 MCV MCH MCHC RDW Plt Count MPV Absolute Nucleated RBC Nucleated RBC % (auto) Anion Gap Estim Creat Clear Calc Estimated GFR POC Glucose 175 H 162 H Random Glucose Calcium Random Vancomycin 14.9 L 11/16/23 11/16/23 11/16/23 05:25 06:52 11:11 MCV 85.9 MCH 28.5 MCHC 33.1 RDW 14.7 Plt Count 290 MPV 10.4 Absolute Nucleated RBC 0.000 Nucleated RBC % (auto) 0.0 Anion Gap 11 L Estim Creat Clear Calc 122.6 Estimated GFR > 60 POC Glucose 151 H 121 H Random Glucose 144 H Calcium 8.9 Random Vancomycin Microbiology Microbiology Results: Microbiology 11/15/23 01:03 Blood Culture - Preliminary Blood - Venous No growth after 24 hours. 11/15/23 01:03 Blood Culture - Preliminary Blood - Venous No growth after 24 hours. Assessment and Plan (1) Infection of left hand: Status: Acute Plan This is a 58-year-old male with pertinent history of polysubstance IV drug use disorder, congestive heart failure with reduced ejection fraction, history of AFib cardiac arrest in 10/27/2022, insulin-dependent diabetes mellitus, hypertension, mixed hyperlipidemia who presents to the emergency department for concerns of hand infection. Sepsis due to left hand abscess. Sepsis resolved developed fever overnight with tachycardia 11/14/23 WBC trending down continue IV vancomycin and Zosyn. blood culture from 11/15/23 neg after 24 hrs s/p I&D 11/14/23 as per ortho Plan for I&D today Acute toxic encephalopathy due to opioid use resolved Polysubstance use disorder Consulting Addiction Team following>rec data recovery planner to meet while inpatient Monitor for withdrawal. Hypokalemia Repleted check mag Insulin-dependent diabetes mellitus ss, ada diet Congestive heart failure with reduced ejection fraction No decompensation during admission. Patient on spironolactone, ARB, Lasix. Not on BB due to cocaine use Hypertension Continue home antihypertensives Mixed hyperlipidemia On statin CAD On aspirin and statin DVT prophylaxis: Mechanical attending Dr. Sandy Full code continue hospital stay for IV antibiotics (as above), which is not possible in a lesser acute setting. Quality Stroke Does the patient have a stroke diagnosis?: No VTE Prior VTE?: No VTE Risk Level:: Medical - moderate - high VTE Device Contraindication: Treatment Not Indicated VTE Drug Contraindication: N/A - Med Ordered
--- NOTE | 2023-11-16 12:35 | P.BOP_ITS ---
Brief Operative Note Date of Service: 11/16/23 Pre-op diagnosis: left hand infection Post-op diagnosis: same Procedure: irrigation and debridement left hand Implants: none Surgeon: Oumar Andrade MD Anesthesia: GLMA and local Was an Business Process Consultant used for this Procedure?: No Estimated blood loss (mL): 25 IV fluids (mL): 500 Pathology: other Condition: stable Disposition: PACU Assessment and Plan (No Qualifiers) Assessment and Plan (1) Infection of left hand: Status: Acute Plan: pull packing 11/17/23 am cont IV abx OT
[2023-11-16 13:15] LABS: Glucose, Whole Blood 112 mg/dL (60-115)
[2023-11-16 15:30] LABS: Vancomycin Random 17.2 mcg/mL (15-20)
[2023-11-16 16:12] LABS: Glucose, Whole Blood 227 mg/dL (60-115)
[2023-11-16] MEDS: Insulin Lispro 100 UNIT/ML 3 ML VIAL SUBCUT ×2 (17:40→20:30)
[2023-11-16] MEDS: vancomycin HCL 1,500 MG in 0.9 % Sodium Chloride 500 ML 333.33 MG IV (17:41)
[2023-11-16] MEDS: Atorvastatin Calcium 80 MG TABLET PO (20:27)
[2023-11-16] MEDS: HYDROmorphone HCl 1 MG/ML SYRINGE IVPUSH (20:28)
[2023-11-16 20:29] LABS: Glucose, Whole Blood 161 mg/dL (60-115)
[2023-11-16] MEDS: Insulin Glargine,Hum.rec.anlog 100 UNIT/ML 10 ML VIAL 15 UNIT SUBCUT (20:31)
[2023-11-17] VITALS (7 sets, daily range): BP systolic 132–164; BP diastolic 60–80; PULSE 72–97; RESP 16–20; TEMP 36.4–37.3; O2SAT 94–100
[2023-11-17] MEDS: Piperacillin Sodium/Tazobactam 4.5 GM in 0.9 % Sodium Chloride 100 ML IV ×4 (04:57→21:30)
[2023-11-17] MEDS: vancomycin HCL 1,500 MG in 0.9 % Sodium Chloride 500 ML 333.33 MG IV ×2 (05:27→18:02)
[2023-11-17 06:37] LABS: Hematocrit 32.9 % (42.0-52.0); Hemoglobin 10.6 g/dl (14.0-18.0); Mean Corpuscular HGB Conc 32.2 g/dl (31.0-36.0); Mean Corpuscular Hemoglobin 27.7 pg (27.0-33.0); Mean Corpuscular Volume 86.1 fL (80.0-98.0); Mean Platelet Volume 10.2 fL (9.4-12.4); Platelet Count 321 X10*3/uL (160-400); Red Blood Count 3.82 X10*6/uL (4.60-5.80); Red Cell Distribution Width 14.7 % (11.0-16.0); White Blood Count 15.8 X10*3/uL (4.8-10.8)
[2023-11-17 06:54] LABS: Anion Gap 12 (12-20); Blood Urea Nitrogen 9 mg/dL (9-16); Carbon Dioxide 25 mmol/L (22-29); Chloride 105 mmol/L (96-108); Estimated Glomerular Filt Rate > 60; Glucose Random 135 mg/dL (60-115); Potassium 3.6 mmol/L (3.3-5.1); Sodium 138 mmol/L (135-145)
[2023-11-17 07:51] LABS: Glucose, Whole Blood 133 mg/dL (60-115)
--- NOTE | 2023-11-17 08:33 | P.PNIM_ITS ---
Subjective Subjective Date of Service: 11/17/23 Review of Systems Follow up hand infection doing ok, WBC trending down Physical Exam 2 Vital Signs: Vital Signs: Last Vital Signs Temp 98.6 F 11/17/23 08:00 Pulse 96 11/17/23 08:00 Resp 16 11/17/23 08:00 BP 133/80 11/17/23 08:00 Pulse Ox 97 11/17/23 08:00 O2 Del Method Room Air 11/17/23 08:00 O2 Flow Rate 2 11/16/23 12:40 Oxygen Flow Rate 2 11/14/23 09:57 BMI result Body Mass Index 36.3 Appearing in no acute distress lung sounds are clear to auscultation heart regular rate rhythm, clear S1, S2 positive bowel sounds, abdomen is soft, nontender neuro patient is alert x3, no focal deficits Objective Data Active Medications Acetaminophen (Acetaminophen 325 Mg Tablet) 650 mg PO Q6H PRN PRN Reason: Pain, Mild (Pain Scale 1-3), fever or headache Last Admin: 11/15/23 08:02 Dose: 650 mg Documented By: ELMA Aspirin (Aspirin Enteric Coated 81 Mg Tablet.Dr) 81 mg PO DAILY [facility] BEDS AT [facility] Last Admin: 11/16/23 08:40 Dose: Not Given Documented By: RUDDY Non-Admin Reason: Surgery today Atorvastatin Calcium (Atorvastatin Calcium 80 Mg Tablet) 80 mg PO BEDTIME [facility] 234 BEDS AT [facility] Last Admin: 11/16/23 20:27 Dose: 80 mg Documented By: ELMA Calcium Carbonate (Calcium Carbonate 750 Mg Tab.Chew) 750 mg PO Q4H PRN PRN Reason: Heartburn Docusate Sodium (Docusate Sodium 100 Mg Capsule) 200 mg PO BEDTIME PRN PRN Reason: Constipation Gabapentin (Gabapentin 300 Mg Capsule) 300 mg PO TID [facility] 234 BEDS AT [facility] Last Admin: 11/16/23 20:27 Dose: 300 mg Documented By: ELMA Glucose (Glucose Gel 15 Gm Gel..Gram.) 15 gm PO Q15M PRN; Protocol PRN Reason: per Hypoglycemia Standing Ord. Hydromorphone HCl (Hydromorphone Hcl 1 Mg/Ml Syringe) 1 mg IVPUSH Q4H PRN; Protocol PRN Reason: Pain, Severe (Pain Scale 7-10) Last Admin: 11/16/23 20:28 Dose: 1 mg Documented By: ELMA Hydroxyzine HCl (Hydroxyzine Hcl 50 Mg Tablet) 50 mg PO BID PRN PRN Reason: Anxiety Last Admin: 11/14/23 08:14 Dose: 50 mg Documented By: ANISHA Dextrose (D10) 250 mls @ 750 mls/hr IV Q15M PRN; Protocol PRN Reason: per Hypoglycemia Standing Ord. Piperacillin Sod/Tazobactam (Sod 4.5 gm/ Sodium Chloride) 100 mls @ 200 mls/hr IV Q6H [facility] 234 BEDS AT THE [facility] Last Infusion: 11/17/23 05:30 Dose: Infused Documented By: FRANDY Vancomycin HCl 1,500 mg/ (Sodium Chloride) 500 mls @ 333.333 mls/hr IV Q12H [facility] 234 BEDS AT THE [facility] Last Infusion: 11/17/23 07:30 Dose: Infused Documented By: FRANDY Insulin Glargine (Insulin Glargine,Hum.Rec.Anlog 100 Unit/Ml 10 Ml Vial) 15 unit SUBCUT BEDTIME [facility] 234 BEDS AT THE [facility] Last Admin: 11/16/23 20:31 Dose: 15 unit Documented By: ELMA Insulin Human Lispro (Insulin Lispro 100 Unit/Ml 3 Ml Vial) 0 unit SUBCUT QIDACHS [facility] 234 BEDS AT THE [facility]; Protocol Last Admin: 11/16/23 20:30 Dose: 2 unit Documented By: ELMA Losartan Potassium (Losartan Potassium 50 Mg Tablet) 100 mg PO DAILY [facility] 234 BEDS AT [facility]; Protocol Last Admin: 11/16/23 08:21 Dose: 100 mg Documented By: RUDDY Magnesium Hydroxide (Milk Of Magnesia 30 Ml Oral.Susp) 30 ml PO DAILY PRN PRN Reason: Constipation Melatonin (Melatonin 3 Mg Tablet) 6 mg PO BEDTIME PRN PRN Reason: Insomnia Ondansetron HCl (Ondansetron Hcl 4 Mg/2 Ml Vial) 4 mg IVPUSH Q8H PRN PRN Reason: Nausea and Vomiting Pharmacy Consult (Consult Rx Vancomycin Dosing) 1 each MISCELLANE DAILY PRN PRN Reason: Consult order Polyethylene Glycol (Polyethylene Glycol 3350 17 Gm Powd.Pack) 17 gm PO DAILY PRN PRN Reason: Constipation Sodium Chloride (0.9 % Sodium Chloride Flush 3 Ml Syringe) 3 ml IVFLUSH [facility]I Last Admin: 11/16/23 22:58 Dose: 3 ml Documented By: ELMA Tamsulosin HCl (Tamsulosin Hcl 0.4 Mg Capsule) 0.4 mg PO DAILY [facility] Last Admin: 11/16/23 08:21 Dose: 0.4 mg Documented By: RUDDY Labs 11/17/23 06:05 11/17/23 06:05 Labs: Laboratory Results - last 24 hr 11/16/23 11/16/23 11/16/23 11:11 13:11 14:54 MCV MCH MCHC RDW Plt Count MPV Absolute Nucleated RBC Nucleated RBC % (auto) Anion Gap Estim Creat Clear Calc Estimated GFR POC Glucose 121 H 112 Random Glucose Calcium Random Vancomycin 17.2 11/16/23 11/16/23 11/17/23 15:58 19:56 06:05 MCV 86.1 MCH 27.7 MCHC 32.2 RDW 14.7 Plt Count 321 MPV 10.2 Absolute Nucleated RBC 0.000 Nucleated RBC % (auto) 0.0 Anion Gap 12 Estim Creat Clear Calc 113.0 Estimated GFR > 60 POC Glucose 227 H 161 H Random Glucose 135 H Calcium 9.0 Random Vancomycin 11/17/23 07:43 MCV MCH MCHC RDW Plt Count MPV Absolute Nucleated RBC Nucleated RBC % (auto) Anion Gap Estim Creat Clear Calc Estimated GFR POC Glucose 133 H Random Glucose Calcium Random Vancomycin Microbiology Microbiology Results: Microbiology 11/15/23 01:03 Blood Culture - Preliminary Blood - Venous No growth after 24 hours. 11/15/23 01:03 Blood Culture - Preliminary Blood - Venous No growth after 24 hours. Assessment and Plan (1) Infection of left hand: Status: Acute Plan This is a 58-year-old male with pertinent history of polysubstance IV drug use disorder, congestive heart failure with reduced ejection fraction, history of AFib cardiac arrest in 10/27/2022, insulin-dependent diabetes mellitus, hypertension, mixed hyperlipidemia who presents to the emergency department for concerns of hand infection. Sepsis due to left hand abscess. Sepsis resolved WBC trending down continue IV vancomycin and Zosyn. blood culture from 11/15/23 neg after 48 hrs s/p I&D 11/14/23, 11/16/23 as per ortho, surgical dressing intact OT consult Acute toxic encephalopathy due to opioid use resolved Polysubstance use disorder Consulting Addiction Team following>rec disaster recovery analyst to meet while inpatient Monitor for withdrawal. Hypokalemia Repleted Insulin-dependent diabetes mellitus ss, ada diet Congestive heart failure with reduced ejection fraction No decompensation during admission. Patient on spironolactone, ARB, Lasix. Not on BB due to cocaine use Hypertension Continue home antihypertensives Mixed hyperlipidemia On statin CAD On aspirin and statin DVT prophylaxis: Mechanical attending Dr. Garcia Full code continue hospital stay for IV antibiotics (as above), which is not possible in a lesser acute setting. Quality Stroke Does the patient have a stroke diagnosis?: No VTE Prior VTE?: No VTE Risk Level:: Medical - moderate - high VTE Device Contraindication: Treatment Not Indicated VTE Drug Contraindication: N/A - Med Ordered
--- NOTE | 2023-11-17 08:33 | HO.POSTANES ---
Post Anesthesia Evaluation Post Anesthesia Evaluation Date of Service: 11/17/23 Vital Signs: Vital Signs Temp Pulse Resp BP Pulse Ox O2 Del Method 11/17/23 08:00 98.6 F 96 16 133/80 97 Room Air 11/17/23 00:00 98.3 F 90 20 141/79 H 94 Room Air Anesthesia: General LMA Mental Status: Awake Pain Control: Satisfactory Nausea/Vomiting: None Hydration: Adequate Anesthesia-Related Issues: No Anes. Related Issues
[2023-11-17] MEDS: Aspirin Enteric Coated 81 MG TABLET.DR PO (10:21)
[2023-11-17] MEDS: Tamsulosin HCL 0.4 MG CAPSULE PO (10:21)
[2023-11-17] MEDS: Gabapentin 300 MG CAPSULE PO ×3 (10:21→21:30)
[2023-11-17] MEDS: Losartan Potassium 50 MG TABLET 100 MG PO (10:21)
[2023-11-17] MEDS: Acetaminophen 325 MG TABLET 650 MG PO ×2 (10:23→16:54)
[2023-11-17] MEDS: 0.9 % Sodium Chloride Flush 3 ML SYRINGE IVFLUSH ×3 (10:24→21:37)
--- NOTE | 2023-11-17 11:25 | MHC.CM.PN ---
Pt is active with [facility] care. He is not ready for DC yet, pending ortho and OT input.
--- NOTE | 2023-11-17 11:35 | MHC.CLN ---
F/U PT WITH INCREASED NUTRITION RISK R/T PRESSURE INJURY PO INTAKE EXCELLENT DIET RX: 1200DM -RECOMMEND 1800DM DIET TO MEET NEEDS AND PROMOTE WOUND HEALING WILL RE-START ENSURE MAX BID TO PROMOTE WOUND HEALING SUPP TO PROVIDE 300KCALS, 60G PROTEIN MONITOR PO AND ENCOURAGE SUPPLEMENTS
[2023-11-17 12:07] LABS: Glucose, Whole Blood 162 mg/dL (60-115)
[2023-11-17] MEDS: Insulin Lispro 100 UNIT/ML 3 ML VIAL SUBCUT ×2 (12:18→16:54)
--- NOTE | 2023-11-17 14:47 | PM.PNORT ---
Subjective Subjective Date of Service: 11/17/23 Principal diagnosis: left dorsal hand infection Interval history: Feels better, less swollen. Still with limited motion. States that it has been ~2 weeks since he has been able to make a fist. Physical Exam Vital Signs: Vital Signs: Last Vital Signs Temp 99.2 F 11/17/23 12:17 Pulse 97 11/17/23 12:17 Resp 16 11/17/23 12:17 BP 146/75 H 11/17/23 12:17 Pulse Ox 100 11/17/23 12:17 O2 Del Method Room Air 11/17/23 12:17 O2 Flow Rate 2 11/16/23 12:40 Oxygen Flow Rate 2 11/14/23 09:57 BMI result Body Mass Index 36.3 Extrem: Other: dorsal swelling markedly diminished no purulent discharge volar thenar emmineces swollen but not painful to palpation minimal finger flexion but no pain SILT Procedures Date of Service Date of Service: 11/17/23 Progress Note: A&P Assessment and plan (1) Infection of left hand: Status: Acute Assessment and Plan: Improving with each washout but still swollen volarly with minimal motion Poor historian but states that 2 weeks ago was able to make a fist NPO p midnight Surgery tomorrow for repeat I&D Time Spent With Patient Time: Total time managing care of this patient today ____ minutes. Quality Stroke Does the patient have a stroke diagnosis?: No VTE Prior VTE?: No VTE Risk Level:: Medical - moderate - high VTE Device Contraindication: Treatment Not Indicated VTE Drug Contraindication: N/A - Med Ordered
[2023-11-17 15:55] LABS: Vancomycin Random 17.1 mcg/mL (15-20)
[2023-11-17 16:27] LABS: Glucose, Whole Blood 153 mg/dL (60-115)
[2023-11-17 20:21] LABS: Glucose, Whole Blood 160 mg/dL (60-115)
[2023-11-17] MEDS: Atorvastatin Calcium 80 MG TABLET PO (21:30)
[2023-11-18] VITALS (14 sets, daily range): BP systolic 104–158; BP diastolic 63–83; PULSE 78–102; RESP 16–20; TEMP 36.1–37.2; O2SAT 95–98
[2023-11-18] MEDS: Piperacillin Sodium/Tazobactam 4.5 GM in 0.9 % Sodium Chloride 100 ML IV ×4 (03:39→22:32)
[2023-11-18] MEDS: vancomycin HCL 1,500 MG in 0.9 % Sodium Chloride 500 ML 333.33 MG IV ×2 (04:15→17:20)
[2023-11-18] MEDS: Acetaminophen 325 MG TABLET 650 MG PO ×2 (06:01→16:09)
[2023-11-18 06:48] LABS: Creatinine Clr Calc Pharmacy 107.4; Estimated Glomerular Filt Rate > 60
[2023-11-18 07:17] LABS: Glucose, Whole Blood 170 mg/dL (60-115)
[2023-11-18] MEDS: Aspirin Enteric Coated 81 MG TABLET.DR PO (08:25)
[2023-11-18] MEDS: Tamsulosin HCL 0.4 MG CAPSULE PO (08:26)
[2023-11-18] MEDS: Insulin Lispro 100 UNIT/ML 3 ML VIAL SUBCUT ×3 (08:26→20:25)
[2023-11-18] MEDS: Losartan Potassium 50 MG TABLET 100 MG PO (08:26)
[2023-11-18] MEDS: Gabapentin 300 MG CAPSULE PO ×3 (08:26→20:24)
[2023-11-18] MEDS: 0.9 % Sodium Chloride Flush 3 ML SYRINGE IVFLUSH ×2 (08:27→16:09)
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
--- NOTE | 2023-11-18 09:50 | HO.ANESPROP2 ---
[facility] Active Problems Active Problems: All Active Problems Infection of left hand (Acute) Abscess of dorsum of left hand (Acute) Chronic constipation (Acute) Encounter for screening colonoscopy (Acute) Toxic encephalopathy (Acute) Opioid use disorder (Acute) Abnormal head CT (Acute) Transaminitis (Acute) Sepsis (Acute) Acute metabolic encephalopathy (Acute) Substance abuse (Acute) Acute alteration in mental status (Acute) Fever (Acute) Cardiomyopathy (Acute) Ventricular fibrillation (Acute) Hypersomnia (Acute) Hepatitis B core antibody positive (Acute) Morbid obesity (Acute) Uncontrolled type 2 diabetes mellitus (Acute) Cocaine abuse (Acute) Tobacco abuse (Acute) Chronic HFrEF (heart failure with reduced ejection fraction) (Acute) Atypical chest pain (Acute) Opioid use disorder, severe, in controlled environment, dependence (Acute) NICM (nonischemic cardiomyopathy) (Acute) Morbid obesity (Acute) Past Medical History Medical History Type 2 diabetes mellitus with unspecified complications Essential hypertension Unstable angina History of CVA (cerebrovascular accident) Diabetes HTN (hypertension) Morbid obesity Chest pain Family History Family History Other CAD (coronary artery disease) Diabetes HTN (hypertension) Family history of problems with anesthesia: No Surgical History Surgical History (Updated 11/18/23 @ 07:28 by Tavia Joshi) H/O hand surgery History of Problems with Anesthesia: No Social History Social History Household Members: None Housing: Apartment Do you presently have visiting nurse or other home services: Yes ([facility]) Patient Tobacco Use Status: Current everyday Tobacco user Tobacco use type: Cigarette e-Cigarette/Vaping Use: Never Used Second Hand Smoke Exposure: No Substance Use Type: Heroin service: No Current occupational status: unemployed Meds Allergies Allergy/AdvReac Type Severity Reaction Status Date / Time Penicillins [PCN] Allergy Intermediate HIVES Verified 11/12/23 15:44 Active Medications: Current Medications Acetaminophen (Acetaminophen 325 Mg Tablet) 650 mg PO Q6H PRN PRN Reason: Pain, Mild (Pain Scale 1-3), fever or headache Last Admin: 11/18/23 06:01 Dose: 650 mg Aspirin (Aspirin Enteric Coated 81 Mg Tablet.Dr) 81 mg PO DAILY JAMIE Last Admin: 11/18/23 08:25 Dose: 81 mg Atorvastatin Calcium (Atorvastatin Calcium 80 Mg Tablet) 80 mg PO BEDTIME JAMIE Last Admin: 11/17/23 21:30 Dose: 80 mg Calcium Carbonate (Calcium Carbonate 750 Mg Tab.Chew) 750 mg PO Q4H PRN PRN Reason: Heartburn Docusate Sodium (Docusate Sodium 100 Mg Capsule) 200 mg PO BEDTIME PRN PRN Reason: Constipation Gabapentin (Gabapentin 300 Mg Capsule) 300 mg PO TID [facility] Last Admin: 11/18/23 08:26 Dose: 300 mg Glucose (Glucose Gel 15 Gm Gel..Gram.) 15 gm PO Q15M PRN; Protocol PRN Reason: per Hypoglycemia Standing Ord. Hydromorphone HCl (Hydromorphone Hcl 1 Mg/Ml Syringe) 1 mg IVPUSH Q4H PRN; Protocol PRN Reason: Pain, Severe (Pain Scale 7-10) Last Admin: 11/16/23 20:28 Dose: 1 mg Hydroxyzine HCl (Hydroxyzine Hcl 50 Mg Tablet) 50 mg PO BID PRN PRN Reason: Anxiety Last Admin: 11/14/23 08:14 Dose: 50 mg Dextrose (D10) 250 mls @ 750 mls/hr IV Q15M PRN; Protocol PRN Reason: per Hypoglycemia Standing Ord. Piperacillin Sod/Tazobactam (Sod 4.5 gm/ Sodium Chloride) 100 mls @ 200 mls/hr IV Q6H [facility] Last Admin: 11/18/23 09:26 Dose: 200 mls/hr Vancomycin HCl 1,500 mg/ (Sodium Chloride) 500 mls @ 333.333 mls/hr IV Q12H [facility] Last Infusion: 11/18/23 06:05 Dose: Infused Insulin Glargine (Insulin Glargine,Hum.Rec.Anlog 100 Unit/Ml 10 Ml Vial) 15 unit SUBCUT BEDTIME [facility] Last Admin: 11/17/23 21:48 Dose: Not Given Insulin Human Lispro (Insulin Lispro 100 Unit/Ml 3 Ml Vial) 0 unit SUBCUT QIDACHS [facility]; Protocol Last Admin: 11/18/23 08:26 Dose: 1 unit Losartan Potassium (Losartan Potassium 50 Mg Tablet) 100 mg PO DAILY [facility]; Protocol Last Admin: 11/18/23 08:26 Dose: 100 mg Magnesium Hydroxide (Milk Of Magnesia 30 Ml Oral.Susp) 30 ml PO DAILY PRN PRN Reason: Constipation Melatonin (Melatonin 3 Mg Tablet) 6 mg PO BEDTIME PRN PRN Reason: Insomnia Ondansetron HCl (Ondansetron Hcl 4 Mg/2 Ml Vial) 4 mg IVPUSH Q8H PRN PRN Reason: Nausea and Vomiting Pharmacy Consult (Consult Rx Vancomycin Dosing) 1 each MISCELLANE DAILY PRN PRN Reason: Consult order Polyethylene Glycol (Polyethylene Glycol 3350 17 Gm Powd.Pack) 17 gm PO DAILY PRN PRN Reason: Constipation Sodium Chloride (0.9 % Sodium Chloride Flush 3 Ml Syringe) 3 ml IVFLUSH QSHIFT [facility] Last Admin: 11/18/23 08:27 Dose: 3 ml Tamsulosin HCl (Tamsulosin Hcl 0.4 Mg Capsule) 0.4 mg PO DAILY [facility] Last Admin: 11/18/23 08:26 Dose: 0.4 mg Home Medications ?Medication ?Instructions ?Recorded ?Confirmed ?Last Taken ?Type aspirin 81 mg tablet,delayed 81 mg PO DAILY 01/18/23 11/13/23 Unknown History release docusate sodium 100 mg capsule 100 - 200 mg PO BEDTIME PRN 01/18/23 11/13/23 Unknown History constipation insulin glargine 100 unit/mL (3 30 unit subcut BID 01/18/23 11/13/23 Unknown History mL) subcutaneous pen (Lantus Solostar U-100 Insulin) ammonium lactate 12 % topical cream 1 appl topical DAILY PRN Dry Skin 11/13/23 11/13/23 Unknown History atorvastatin 80 mg tablet 80 mg PO BEDTIME 11/13/23 11/13/23 Unknown History docusate sodium 100 mg capsule 200 mg PO BEDTIME PRN Constipation 11/13/23 11/13/23 Unknown History (Colace) gabapentin 300 mg capsule 300 mg PO TID 11/13/23 11/13/23 Unknown History hydroxyzine HCl 50 mg tablet 50 mg PO BID PRN Anxiety 11/13/23 11/13/23 Unknown History losartan 50 mg tablet 50 mg PO DAILY 11/13/23 11/13/23 Unknown History metformin 500 mg tablet,extended 500 mg PO BID 11/13/23 11/13/23 Unknown History release 24 hr polyethylene glycol 3350 17 17 g PO DAILY PRN Constipation 11/13/23 11/13/23 Unknown History gram/dose oral powder (Miralax) tamsulosin 0.4 mg capsule 0.4 mg PO DAILY 11/13/23 11/13/23 Unknown History Exam Height,Weight and Vital Signs: Height 5 ft 5 in Weight 98.883 kg Last Vital Signs Temp 97.5 F 11/18/23 08:00 Pulse 89 11/18/23 08:00 Resp 20 11/18/23 08:00 BP 152/70 H 11/18/23 08:26 Pulse Ox 97 11/18/23 08:00 O2 Del Method Room Air 11/18/23 08:00 O2 Flow Rate 2 11/16/23 12:40 Oxygen Flow Rate 2 11/14/23 09:57 Pertinent Lab Results Pertinent Lab Results: Laboratory Tests 11/12/23 11/12/23 11/13/23 16:16 20:55 07:25 WBC 25.3 H 31.3 H* RBC 4.16 L 3.78 L Hgb 11.7 L 10.6 L Hct 35.8 L 32.5 L MCV 86.1 86.0 MCH 28.1 28.0 MCHC 32.7 32.6 RDW 14.2 14.3 Plt Count 234 223 MPV 10.5 10.5 Immature Gran % (Auto) 1.3 H Cancelled Neut % (Auto) 84.5 H Cancelled Lymph % (Auto) 7.8 L Cancelled Edgar % (Auto) 5.9 Cancelled Eos % (Auto) 0.2 Cancelled Baso % (Auto) 0.3 Cancelled Lymph # (Auto) 2.0 Cancelled Edgar # (Auto) 1.5 H Cancelled Eos # (Auto) 0.0 Cancelled Baso # (Auto) 0.1 Cancelled Abs Immat Gran (auto) 0.34 H Cancelled Absolute Neuts (auto) 21.4 H Cancelled Absolute Nucleated RBC 0.000 0.000 Nucleated RBC % (auto) 0.0 0.0 Neutrophils % (Manual) 82 H Band Neutrophils % 1 L Lymphocytes % (Manual) 8 L Monocytes % (Manual) 9 Abs Neuts (Manual) 26.0 H Lymphocytes # (Manual) 2.5 Monocytes # (Manual) 2.8 H Toxic Vacuolation PRESENT Platelet Estimate NORMAL Plt Morphology Comment NORMAL RBC Morphology NOTED [place] Cells 1+ (0-2) Acanthocytes (Spur) 1+ (0-2) Schistocytes 1+ (0-2) Smear Tech's Comments VERIFIED Smear Path Review SEE NOTE ESR 77 H Hold Purple Top Sodium 136 140 Potassium 3.0 L D 3.4 Chloride 97 105 Carbon Dioxide 29 26 Anion Gap 13 12 BUN 9 9 Creatinine 0.88 0.81 Estim Creat Clear Calc 98.9 107.4 Estimated GFR > 60 > 60 POC Glucose 124 H Random Glucose 142 H 137 H Lactic Acid 1.9 Calcium 9.0 8.4 D Magnesium 1.7 C-Reactive Protein 26.79 H Lipase 21 Random Vancomycin 11/13/23 11/13/23 11/13/23 08:01 11:41 15:06 WBC RBC Hgb Hct MCV MCH MCHC RDW Plt Count MPV Immature Gran % (Auto) Neut % (Auto) Lymph % (Auto) Edgar % (Auto) Eos % (Auto) Baso % (Auto) Lymph # (Auto) Edgar # (Auto) Eos # (Auto) Baso # (Auto) Abs Immat Gran (auto) Absolute Neuts (auto) Absolute Nucleated RBC Nucleated RBC % (auto) Neutrophils % (Manual) Band Neutrophils % Lymphocytes % (Manual) Monocytes % (Manual) Abs Neuts (Manual) Lymphocytes # (Manual) Monocytes # (Manual) Toxic Vacuolation Platelet Estimate Plt Morphology Comment RBC Morphology [place] Cells Acanthocytes (Spur) Schistocytes Smear Tech's Comments Smear Path Review ESR Hold Purple Top Sodium Potassium Chloride Carbon Dioxide Anion Gap BUN Creatinine Estim Creat Clear Calc Estimated GFR POC Glucose 164 H 113 Random Glucose Lactic Acid Calcium Magnesium C-Reactive Protein Lipase Random Vancomycin 13.8 L 11/13/23 11/13/23 11/14/23 16:28 20:55 06:21 WBC RBC Hgb Hct MCV MCH MCHC RDW Plt Count MPV Immature Gran % (Auto) Neut % (Auto) Lymph % (Auto) Edgar % (Auto) Eos % (Auto) Baso % (Auto) Lymph # (Auto) Edgar # (Auto) Eos # (Auto) Baso # (Auto) Abs Immat Gran (auto) Absolute Neuts (auto) Absolute Nucleated RBC Nucleated RBC % (auto) Neutrophils % (Manual) Band Neutrophils % Lymphocytes % (Manual) Monocytes % (Manual) Abs Neuts (Manual) Lymphocytes # (Manual) Monocytes # (Manual) Toxic Vacuolation Platelet Estimate Plt Morphology Comment RBC Morphology [place] Cells Acanthocytes (Spur) Schistocytes Smear Tech's Comments Smear Path Review ESR Hold Purple Top Sodium Potassium Chloride Carbon Dioxide Anion Gap BUN Creatinine 0.76 Estim Creat Clear Calc 114.5 Estimated GFR > 60 POC Glucose 189 H 180 H Random Glucose Lactic Acid Calcium Magnesium C-Reactive Protein Lipase Random Vancomycin 11/14/23 11/14/23 11/14/23 07:54 07:55 11:58 WBC 29.5 H RBC 3.78 L Hgb 10.7 L Hct 32.7 L MCV 86.5 MCH 28.3 MCHC 32.7 RDW 14.4 Plt Count 236 MPV 10.3 Immature Gran % (Auto) Neut % (Auto) Lymph % (Auto) Edgar % (Auto) Eos % (Auto) Baso % (Auto) Lymph # (Auto) Edgar # (Auto) Eos # (Auto) Baso # (Auto) Abs Immat Gran (auto) Absolute Neuts (auto) Absolute Nucleated RBC 0.000 Nucleated RBC % (auto) 0.0 Neutrophils % (Manual) Band Neutrophils % Lymphocytes % (Manual) Monocytes % (Manual) Abs Neuts (Manual) Lymphocytes # (Manual) Monocytes # (Manual) Toxic Vacuolation Platelet Estimate Plt Morphology Comment RBC Morphology [place] Cells Acanthocytes (Spur) Schistocytes Smear Tech's Comments Smear Path Review ESR Hold Purple Top Sodium 140 Potassium 3.1 L Chloride 106 Carbon Dioxide 26 Anion Gap 11 L BUN 8 L Creatinine 0.73 Estim Creat Clear Calc 119.2 Estimated GFR > 60 POC Glucose 102 92 Random Glucose 103 Lactic Acid Calcium 8.8 Magnesium 1.7 C-Reactive Protein Lipase Random Vancomycin 11/14/23 11/14/23 11/14/23 15:07 15:54 20:35 WBC RBC Hgb Hct MCV MCH MCHC RDW Plt Count MPV Immature Gran % (Auto) Neut % (Auto) Lymph % (Auto) Edgar % (Auto) Eos % (Auto) Baso % (Auto) Lymph # (Auto) Edgar # (Auto) Eos # (Auto) Baso # (Auto) Abs Immat Gran (auto) Absolute Neuts (auto) Absolute Nucleated RBC Nucleated RBC % (auto) Neutrophils % (Manual) Band Neutrophils % Lymphocytes % (Manual) Monocytes % (Manual) Abs Neuts (Manual) Lymphocytes # (Manual) Monocytes # (Manual) Toxic Vacuolation Platelet Estimate Plt Morphology Comment RBC Morphology [place] Cells Acanthocytes (Spur) Schistocytes Smear Tech's Comments Smear Path Review ESR Hold Purple Top Sodium Potassium Chloride Carbon Dioxide Anion Gap BUN Creatinine Estim Creat Clear Calc Estimated GFR POC Glucose 189 H 182 H Random Glucose Lactic Acid Calcium Magnesium C-Reactive Protein Lipase Random Vancomycin 12.1 L 11/14/23 11/15/23 11/15/23 23:27 01:03 05:40 WBC RBC Hgb Hct MCV MCH MCHC RDW Plt Count MPV Immature Gran % (Auto) Neut % (Auto) Lymph % (Auto) Edgar % (Auto) Eos % (Auto) Baso % (Auto) Lymph # (Auto) Edgar # (Auto) Eos # (Auto) Baso # (Auto) Abs Immat Gran (auto) Absolute Neuts (auto) Absolute Nucleated RBC Nucleated RBC % (auto) Neutrophils % (Manual) Band Neutrophils % Lymphocytes % (Manual) Monocytes % (Manual) Abs Neuts (Manual) Lymphocytes # (Manual) Monocytes # (Manual) Toxic Vacuolation Platelet Estimate Plt Morphology Comment RBC Morphology Krystyna Cells Acanthocytes (Spur) Schistocytes Smear Tech's Comments Smear Path Review ESR Hold Purple Top SEE NOTE Sodium Potassium Chloride Carbon Dioxide Anion Gap BUN Creatinine 0.76 Estim Creat Clear Calc 114.5 Estimated GFR > 60 POC Glucose 228 H Random Glucose Lactic Acid 1.2 Calcium Magnesium C-Reactive Protein Lipase Random Vancomycin 11/15/23 11/15/23 11/15/23 06:50 07:29 10:48 WBC 20.7 H RBC 3.67 L Hgb 10.3 L Hct 31.9 L MCV 86.9 MCH 28.1 MCHC 32.3 RDW 14.6 Plt Count 251 MPV 10.2 Immature Gran % (Auto) Neut % (Auto) Lymph % (Auto) Edgar % (Auto) Eos % (Auto) Baso % (Auto) Lymph # (Auto) Edgar # (Auto) Eos # (Auto) Baso # (Auto) Abs Immat Gran (auto) Absolute Neuts (auto) Absolute Nucleated RBC 0.000 Nucleated RBC % (auto) 0.0 Neutrophils % (Manual) Band Neutrophils % Lymphocytes % (Manual) Monocytes % (Manual) Abs Neuts (Manual) Lymphocytes # (Manual) Monocytes # (Manual) Toxic Vacuolation Platelet Estimate Plt Morphology Comment RBC Morphology [place] Cells Acanthocytes (Spur) Schistocytes Smear Tech's Comments Smear Path Review ESR Hold Purple Top Sodium 138 Potassium 3.4 Chloride 106 Carbon Dioxide 26 Anion Gap 9 L BUN 8 L Creatinine 0.71 Estim Creat Clear Calc 122.6 Estimated GFR > 60 POC Glucose 171 H 241 H Random Glucose 191 H Lactic Acid Calcium 8.7 Magnesium C-Reactive Protein Lipase Random Vancomycin 11/15/23 11/15/23 11/15/23 15:06 16:31 20:46 WBC RBC Hgb Hct MCV MCH MCHC RDW Plt Count MPV Immature Gran % (Auto) Neut % (Auto) Lymph % (Auto) Edgar % (Auto) Eos % (Auto) Baso % (Auto) Lymph # (Auto) Edgar # (Auto) Eos # (Auto) Baso # (Auto) Abs Immat Gran (auto) Absolute Neuts (auto) Absolute Nucleated RBC Nucleated RBC % (auto) Neutrophils % (Manual) Band Neutrophils % Lymphocytes % (Manual) Monocytes % (Manual) Abs Neuts (Manual) Lymphocytes # (Manual) Monocytes # (Manual) Toxic Vacuolation Platelet Estimate Plt Morphology Comment RBC Morphology [place] Cells Acanthocytes (Spur) Schistocytes Smear Tech's Comments Smear Path Review ESR Hold Purple Top Sodium Potassium Chloride Carbon Dioxide Anion Gap BUN Creatinine Estim Creat Clear Calc Estimated GFR POC Glucose 175 H 162 H Random Glucose Lactic Acid Calcium Magnesium C-Reactive Protein Lipase Random Vancomycin 14.9 L 11/16/23 11/16/23 11/16/23 05:25 06:52 11:11 WBC 15.8 H RBC 3.62 L Hgb 10.3 L Hct 31.1 L MCV 85.9 MCH 28.5 MCHC 33.1 RDW 14.7 Plt Count 290 MPV 10.4 Immature Gran % (Auto) Neut % (Auto) Lymph % (Auto) Edgar % (Auto) Eos % (Auto) Baso % (Auto) Lymph # (Auto) Edgar # (Auto) Eos # (Auto) Baso # (Auto) Abs Immat Gran (auto) Absolute Neuts (auto) Absolute Nucleated RBC 0.000 Nucleated RBC % (auto) 0.0 Neutrophils % (Manual) Band Neutrophils % Lymphocytes % (Manual) Monocytes % (Manual) Abs Neuts (Manual) Lymphocytes # (Manual) Monocytes # (Manual) Toxic Vacuolation Platelet Estimate Plt Morphology Comment RBC Morphology [place] Cells Acanthocytes (Spur) Schistocytes Smear Tech's Comments Smear Path Review ESR Hold Purple Top Sodium 138 Potassium 3.3 Chloride 104 Carbon Dioxide 26 Anion Gap 11 L BUN 9 Creatinine 0.71 Estim Creat Clear Calc 122.6 Estimated GFR > 60 POC Glucose 151 H 121 H Random Glucose 144 H Lactic Acid Calcium 8.9 Magnesium C-Reactive Protein Lipase Random Vancomycin 11/16/23 11/16/23 11/16/23 13:11 14:54 15:58 WBC RBC Hgb Hct MCV MCH MCHC RDW Plt Count MPV Immature Gran % (Auto) Neut % (Auto) Lymph % (Auto) Edgar % (Auto) Eos % (Auto) Baso % (Auto) Lymph # (Auto) Edgar # (Auto) Eos # (Auto) Baso # (Auto) Abs Immat Gran (auto) Absolute Neuts (auto) Absolute Nucleated RBC Nucleated RBC % (auto) Neutrophils % (Manual) Band Neutrophils % Lymphocytes % (Manual) Monocytes % (Manual) Abs Neuts (Manual) Lymphocytes # (Manual) Monocytes # (Manual) Toxic Vacuolation Platelet Estimate Plt Morphology Comment RBC Morphology Krystyna Cells Acanthocytes (Spur) Schistocytes Smear Tech's Comments Smear Path Review ESR Hold Purple Top Sodium Potassium Chloride Carbon Dioxide Anion Gap BUN Creatinine Estim Creat Clear Calc Estimated GFR POC Glucose 112 227 H Random Glucose Lactic Acid Calcium Magnesium C-Reactive Protein Lipase Random Vancomycin 17.2 11/16/23 11/17/23 11/17/23 19:56 06:05 07:43 WBC 15.8 H RBC 3.82 L Hgb 10.6 L Hct 32.9 L MCV 86.1 MCH 27.7 MCHC 32.2 RDW 14.7 Plt Count 321 MPV 10.2 Immature Gran % (Auto) Neut % (Auto) Lymph % (Auto) Edgar % (Auto) Eos % (Auto) Baso % (Auto) Lymph # (Auto) Edgar # (Auto) Eos # (Auto) Baso # (Auto) Abs Immat Gran (auto) Absolute Neuts (auto) Absolute Nucleated RBC 0.000 Nucleated RBC % (auto) 0.0 Neutrophils % (Manual) Band Neutrophils % Lymphocytes % (Manual) Monocytes % (Manual) Abs Neuts (Manual) Lymphocytes # (Manual) Monocytes # (Manual) Toxic Vacuolation Platelet Estimate Plt Morphology Comment RBC Morphology [place] Cells Acanthocytes (Spur) Schistocytes Smear Tech's Comments Smear Path Review ESR Hold Purple Top Sodium 138 Potassium 3.6 Chloride 105 Carbon Dioxide 25 Anion Gap 12 BUN 9 Creatinine 0.77 Estim Creat Clear Calc 113.0 Estimated GFR > 60 POC Glucose 161 H 133 H Random Glucose 135 H Lactic Acid Calcium 9.0 Magnesium C-Reactive Protein Lipase Random Vancomycin 11/17/23 11/17/23 11/17/23 12:03 15:30 16:21 WBC RBC Hgb Hct MCV MCH MCHC RDW Plt Count MPV Immature Gran % (Auto) Neut % (Auto) Lymph % (Auto) Edgar % (Auto) Eos % (Auto) Baso % (Auto) Lymph # (Auto) Edgar # (Auto) Eos # (Auto) Baso # (Auto) Abs Immat Gran (auto) Absolute Neuts (auto) Absolute Nucleated RBC Nucleated RBC % (auto) Neutrophils % (Manual) Band Neutrophils % Lymphocytes % (Manual) Monocytes % (Manual) Abs Neuts (Manual) Lymphocytes # (Manual) Monocytes # (Manual) Toxic Vacuolation Platelet Estimate Plt Morphology Comment RBC Morphology Krystyna Cells Acanthocytes (Spur) Schistocytes Smear Tech's Comments Smear Path Review ESR Hold Purple Top Sodium Potassium Chloride Carbon Dioxide Anion Gap BUN Creatinine Estim Creat Clear Calc Estimated GFR POC Glucose 162 H 153 H Random Glucose Lactic Acid Calcium Magnesium C-Reactive Protein Lipase Random Vancomycin 17.1 11/17/23 11/18/23 11/18/23 20:15 06:10 07:13 WBC RBC Hgb Hct MCV MCH MCHC RDW Plt Count MPV Immature Gran % (Auto) Neut % (Auto) Lymph % (Auto) Edgar % (Auto) Eos % (Auto) Baso % (Auto) Lymph # (Auto) Edgar # (Auto) Eos # (Auto) Baso # (Auto) Abs Immat Gran (auto) Absolute Neuts (auto) Absolute Nucleated RBC Nucleated RBC % (auto) Neutrophils % (Manual) Band Neutrophils % Lymphocytes % (Manual) Monocytes % (Manual) Abs Neuts (Manual) Lymphocytes # (Manual) Monocytes # (Manual) Toxic Vacuolation Platelet Estimate Plt Morphology Comment RBC Morphology Krystyna Cells Acanthocytes (Spur) Schistocytes Smear Tech's Comments Smear Path Review ESR Hold Purple Top SEE NOTE Sodium Potassium Chloride Carbon Dioxide Anion Gap BUN Creatinine 0.81 Estim Creat Clear Calc 107.4 Estimated GFR > 60 POC Glucose 160 H 170 H Random Glucose Lactic Acid Calcium Magnesium C-Reactive Protein Lipase Random Vancomycin Airway Mallampati Class: III TM Dist: >3cm Neck ROM: Full Loose/Missing/Broken Teeth: Yes and Lower Assessment and Plan Assessment Anesthesia Assessment: Anesthesia Plan Discussed and Chart Reviewed Final Anesthetic Review Family History of Problems with Anesthesia: No History of Problems with Anesthesia: No NPO: Yes ASA Class: III Final Preanesthetic Review: No Changes in Pt Med Stat, Meds/Allgs Chart Reviewed, Consent Obtained/Reviewed and Anes Risks/Benef Reviewed Patient Risk: Intermediate Procedure Risk: Low Anesthetic Plan Anesthetic Plan: GA Disposition: Standard PACU
[2023-11-18 10:18] LABS: Glucose, Whole Blood 141 mg/dL (60-115)
--- NOTE | 2023-11-18 10:30 | PM.PNORT ---
Subjective Subjective Date of Service: 11/18/23 <AISLINN Tijerina - Last Filed: 11/18/23 10:52> 11/18/23 <Meredith Gomez MD - Last Filed: 11/18/23 11:01> Principal diagnosis: left dorsal hand infection <AISLINN Tijerina - Last Filed: 11/18/23 10:52> Interval history: Patient is a 58-year-old male who is currently admitted to the hospital treatment an abscess of the left hand, status post irrigation and debridement on both 11/14/2023 and 11/16/[address] Andrade. Today, the patient reports that he is feeling better, and then his swelling has decreased. Patient reports no pain at this time However, the patient continues to report restrictions of range of motion, namely that he can not make a closed fist this time. Of note, patient is status post CVA with left side affected, so it is unknown what his previous baseline function in his left hand was. <AISLINN Tijerina - Last Filed: 11/18/23 10:52> Physical Exam Vital Signs: Vital Signs: Last Vital Signs Temp 97.5 F 11/18/23 08:00 Pulse 89 11/18/23 08:00 Resp 20 11/18/23 08:00 BP 152/70 H 11/18/23 08:26 Pulse Ox 97 11/18/23 08:00 O2 Del Method Room Air 11/18/23 08:00 O2 Flow Rate 2 11/16/23 12:40 Oxygen Flow Rate 2 11/14/23 09:57 BMI result Body Mass Index 36.3 <AISLINN Tijerina - Last Filed: 11/18/23 10:52> Extrem: Other: Patient is alert, oriented, and in no acute distress. Neuro: Median, ulnar, radial nerves sensory intact and sensation is normal to the tips of all digits. Pain: Patient reports no pain to palpation of the left hand at this time ROM: Patient is unable to make a closed fist with his left hand at this time Skin: Open area over the left dorsal MCP joint of the middle finger, actively draining serosanguineous discharge. General: Erythema and edema noted on the dorsal aspect of the left hand, improved from last visit. Psych: Appears grossly normal Affect normal Attitude cooperative <AISLINN Tijerina - Last Filed: 11/18/23 10:52> Procedures Date of Service Date of Service: 11/18/23 <AISLINN Tijerina - Last Filed: 11/18/23 10:52> 11/18/23 <Meredith Gomez MD - Last Filed: 11/18/23 11:01> Progress Note: A&P Assessment and plan (1) Abscess of dorsum of left hand: Status: Acute <AISLINN Tijerina - Last Filed: 11/18/23 10:52> (2) Infection of left hand: Status: Acute <AISLINN Tijerina - Last Filed: 11/18/23 10:52> Assessment and Plan: 1. Dorsal left hand abscess, status post irrigation and debridement Dates of surgery 11/14/23 and 11/16/2023 At this time, the plan is to bring the patient to the OR today for repeat irrigation and debridement with Dr. Gomez Patient has been NPO since midnight The risks and benefits of operative treatment were discussed with the patient and the patient wishes to proceed with surgery. These risks include, but are not limited to, risk of damage to blood vessels, nerves, tendons, infection, recurrence, incomplete relief of preoperative symptoms, persistent pain, possible need for further surgery, and the risks associated with regional blocks and/or anesthesia. Plan is to take the patient to the operating room today for the following procedures: 1. Irrigation and debridement of dorsal left hand abscess Continue with IV antibiotics postoperatively for treatment of infection and overlying cellulitis. <AISLINN Tijerina - Last Filed: 11/18/23 10:52> 1. Left hand abscess, status post irrigation and debridement x2 Dates of surgery 11/14/23 and 11/16/2023 He continues to have purulent drainage. At this time, the plan is to bring the patient to the OR today for repeat irrigation and debridement with Dr. Gomez Patient has been NPO since midnight The risks and benefits of operative treatment were discussed with the patient and the patient wishes to proceed with surgery. These risks include, but are not limited to, risk of damage to blood vessels, nerves, tendons, infection, recurrence, incomplete relief of preoperative symptoms, persistent pain, possible need for further surgery, and the risks associated with regional blocks and/or anesthesia. Plan is to take the patient to the operating room today for the following procedures: 1. Irrigation and debridement of dorsal left hand abscess Continue with IV antibiotics postoperatively for treatment of infection and overlying cellulitis. Dr. Gomez addendum: I saw and evaluated the patient in preop hold. After talking with Dr. Andrade yesterday we have decided to go ahead and take him back for another I and D today. <Meredith Gomez MD - Last Filed: 11/18/23 11:01> Time Spent With Patient Time: Total time managing care of this patient today ____ minutes. <AISLINN Tijerina - Last Filed: 11/18/23 10:52> Quality Stroke Does the patient have a stroke diagnosis?: No <AISLINN Tijerina - Last Filed: 11/18/23 10:52> VTE Prior VTE?: No <AISLINN Tijerina - Last Filed: 11/18/23 10:52> VTE Risk Level:: Medical - moderate - high <AISLINN Tijerina - Last Filed: 11/18/23 10:52> VTE Device Contraindication: Treatment Not Indicated <AISLINN Tijerina - Last Filed: 11/18/23 10:52> VTE Drug Contraindication: N/A - Med Ordered <AISLINN Tijerina - Last Filed: 11/18/23 10:52>
--- NOTE | 2023-11-18 10:55 | MHC.SHP ---
Pre-Procedural Eval Section A - 24 Hr Update-Section A only Date of Service: 11/18/23 The patient is an INPATIENT: Yes Changes since office visit: No Cold of Flu in the past 2 weeks, No New Medical Problems, No Changes in Medication and No Patient answered all questions The patient has been examined within 24 hours of the surgical procedure. The History & Physical has been completed within 30 days and I have reviewed it.: Yes Section B - Complete if H&P > 30 days Chief Complaint: Hand infection Allergies: Allergies Allergy/AdvReac Type Severity Reaction Status Date / Time Penicillins [PCN] Allergy Intermediate HIVES Verified 11/12/23 15:44 Exam Exam Comment: Left hand infection for repeat I and D Plan Diagnosis/Plan: Unchanged I have reviewed the history and physical and performed a pertinent physical examination on my patient. No changes have occurred unless specified. Time Spent With Patient Time: Total time managing care of this patient today ____ minutes.
--- NOTE | 2023-11-18 10:56 | P.OP_ITS ---
Operative Note Operative Note Date of Service: 11/18/23 Narrative: Operative Note Narrative: Preop diagnosis: 1. Left hand infection status post I and D x2, with persistent purulent drainage Postop diagnosis: Same Procedure: 1 . Left hand infection I and D of dorsal aspect of the hand, and of two palmar bursa: The mid palmar space and the thenar space 2. Closed manipulation under anesthesia of the 2nd, 3rd, 4th and 5th MCP joints, and of the PIP joints to the index, middle, ring and small fingers. Surgeon: Meredith Gomez MD Campaign Developer: Ba Haider Anesthesia: General Anesthesia Findings: In the dorsal aspect of the hand most of the purulence appeared to be coming from the palmar aspect of the hand around the radial aspect of the 3rd metacarpal and around the ulnar aspect of the 3rd metacarpal proximal to the MCP joint. He is developing significant stiffness in the finger joints. After gentle closed manipulation I was able to get all of the fingers closed passively to a fist and then back into extension. Implants: Iodoform drains x3 Tourniquet time: 0 minutes EBL: 5.0 ml Specimen: Cultures were taken Drains: None Complications: None Disposition: Brought to the recovery room in stable condition Plan: Admit back to floor, and continue IV antibiotics. Adjust based on cultures. Pull drains and perform dressing change tomorrow. Daily dressing changes after that. Early OT hand therapy to address developing hand stiffness and work on finger and thumb range of motion exercises Indications: The patient is a 58 year old man with a bad left hand infection that is already status post I and D x2. I saw and evaluated him in preop hold. . The risks and benefits of operative treatment, including but not limited to risk of damage to blood vessels, nerves, tendons, infection, recurrence, persistent pain or numbness, incomplete resolution of preoperative symptoms, or need for further surgery were discussed with the patient and they wished to proceed with surgery. Procedure: Once consent was obtained patient was brought back to the operating suite and placed in the operating table in a supine position. Anesthesia was administered by the anesthesia team. A tourniquet was applied to the proximal aspect of the left upper extremity and the limb was prepped and draped in a standard surgical fashion. The tourniquet was not elevated during this case. The sutures were removed from the dorsal hand incision. Tenotomy scissors were then used to dissect down to the level of the extensor tendons in the dorsal aspect of the hand. There was purulent drainage that appeared to be coming from the palmar aspect of the hand around the 3rd metacarpal both radially and ulnarly. I also gently debrided more proximally in the subcutaneous plane. I did not see much in the way of purulent drainage over the proximal aspect of the hand. I copiously irrigated the dorsal aspect of the hand as well as about the 3rd metacarpal extending down to the middle finger dorsally. I then used a hemostat to gently pass just radial to the 3rd metacarpal into the thenar space. With the tip of the hemostat against the underside of the skin I then made a 1.5 cm incision opening up the thenar space on the palmar side of the hand. Similarly I passed the hemostat just ulnar to the 3rd metacarpal into the mid palmar space gently passing into the underside of the skin. I then made a 1.5 cm incision on the palmar side of the hand opening up the mid palmar space. I then copiously irrigated the the thenar space with normal saline. The mid palmar space was then copiously irrigated with normal saline. The dorsal aspect of the hand was again copiously irrigated with normal saline. Because of the significant stiffness appreciated in the MCP and PIP joints of all of the fingers I elected to proceed with a gentle closed manipulation of all 4 MCP joints and all 4 finger PIP joints. Once the gentle closed manipulations were completed I was able to bring all 4 fingers closed passively to a fist and then back into full extension. I will say that the 3rd MCP joint is somewhat stiffer than the other joints it was only brought to perhaps 70 degrees of flexion. The dorsal aspect of the hand, mid palmar space and thenar space were all again copiously irrigated with normal saline. I then passed iodoform drains into the mid palmar space, and into the thenar space. Another iodoform drain was placed dorsally. The dorsal incision was then loosely closed using 4-0 Prolene suture, to allow for drainage. The 2 palmar incisions were not closed, to allow for drainage. The dorsal wound was infiltrated with some 0.5% plain ropivacaine for postop pain control and a sterile dressing was applied. The patient appears to have tolerated the procedure well and with no complications. All digits were well vascularized conclusion of the case.
[2023-11-18 13:22] LABS: Glucose, Whole Blood 109 mg/dL (60-115)
[2023-11-18 15:45] LABS: Glucose, Whole Blood 182 mg/dL (60-115)
[2023-11-18 16:27] LABS: Vancomycin Random 16.7 mcg/mL (15-20)
--- NOTE | 2023-11-18 16:36 | HE.PHANOTE ---
Re: Vanc Trough returned at 16.7. Projected AUC is still therapeutic at 521 mg/L and renal function seems stable. Will continue same regimen and order next level for 11/19 @1500.
[2023-11-18 20:23] LABS: Glucose, Whole Blood 224 mg/dL (60-115)
[2023-11-18] MEDS: Insulin Glargine,Hum.rec.anlog 100 UNIT/ML 10 ML VIAL 15 UNIT SUBCUT (20:25)
[2023-11-18] MEDS: Atorvastatin Calcium 80 MG TABLET PO (20:25)
[2023-11-18] MEDS: HYDROmorphone HCl 1 MG/ML SYRINGE IVPUSH (20:26)
[2023-11-18] MEDS: Melatonin 3 MG TABLET 6 MG PO (20:31)
[2023-11-18 21:22] LABS: Glucose, Whole Blood 205 mg/dL (60-115)
[2023-11-19] VITALS (8 sets, daily range): BP systolic 123–144; BP diastolic 69–77; PULSE 73–88; RESP 12–20; TEMP 36.1–36.7; O2SAT 97–99
[2023-11-19] MEDS: Piperacillin Sodium/Tazobactam 4.5 GM in 0.9 % Sodium Chloride 100 ML IV ×4 (04:50→23:10)
[2023-11-19] MEDS: vancomycin HCL 1,500 MG in 0.9 % Sodium Chloride 500 ML 333.33 MG IV ×2 (05:27→17:08)
[2023-11-19 06:42] LABS: Creatinine Clr Calc Pharmacy 120.9; Estimated Glomerular Filt Rate > 60
[2023-11-19 07:28] LABS: Glucose, Whole Blood 156 mg/dL (60-115)
--- NOTE | 2023-11-19 08:01 | PM.PNORT ---
Subjective Subjective Date of Service: 11/19/23 Principal diagnosis: left dorsal hand infection Interval history: Patient is a 58-year-old male who is postop day 1 for repeat irrigation and debridement of left hand, dates of surgery 11/14/2023, 11/16/2023, and 11/18/2023. Today, the patient reports that he is feeling well, and has no pain in his left hand. Patient has no other complaints or concerns at this time. Physical Exam Vital Signs: Vital Signs: Last Vital Signs Temp 96.9 F 11/19/23 00:00 Pulse 85 11/19/23 00:00 Resp 20 11/19/23 00:00 BP 131/76 11/19/23 00:00 Pulse Ox 97 11/19/23 00:00 O2 Del Method Room Air 11/19/23 00:00 O2 Flow Rate 2 11/16/23 12:40 Oxygen Flow Rate 2 11/14/23 09:57 BMI result Body Mass Index 36.3 Extrem: Other: Patient is alert, oriented, and in no acute distress. Neuro: Median, ulnar, radial nerves motor and sensory intact and sensation is normal to the tips of all digits. Vascular: Cap refill brisk Pain: Patient reports no pain or tenderness to palpation in or hand at this time ROM: Limited range of motion of the left hand, patient is unable to make a closed fist Skin: Incision site from yesterday well approximated, with sutures and drains in place. Large amounts of serosanguineous discharge, as well as small amount of bleeding, noted on dressing. Edema noted on the dorsum of the left hand, improved from presentation to the hospital. Psych: Appears grossly normal Affect normal Attitude cooperative Procedures Date of Service Date of Service: 11/19/23 Progress Note: A&P Assessment and plan (1) Infection of left hand: Status: Acute Plan 1. Left hand infection Patient is doing well postoperatively Patient is educated about the postoperative course Patient inquires about why he has such a large amount of drainage on his dressings, and is educated that the purpose of having the drains through the incision is to allow for such drainage. Patient is amenable to this. Drains removed from surgery site today Dressing changed Dressing should be changed as needed secondary to dressing saturation Continue IV antibiotics per Medicine Time Spent With Patient Time: Total time managing care of this patient today ____ minutes. Quality Stroke Does the patient have a stroke diagnosis?: No VTE Prior VTE?: No VTE Risk Level:: Medical - moderate - high VTE Device Contraindication: Treatment Not Indicated VTE Drug Contraindication: N/A - Med Ordered
[2023-11-19] MEDS: Insulin Lispro 100 UNIT/ML 3 ML VIAL SUBCUT ×4 (08:12→21:43)
[2023-11-19] MEDS: 0.9 % Sodium Chloride Flush 3 ML SYRINGE IVFLUSH ×2 (08:13→16:31)
[2023-11-19] MEDS: Aspirin Enteric Coated 81 MG TABLET.DR PO (08:13)
[2023-11-19] MEDS: Gabapentin 300 MG CAPSULE PO ×3 (08:13→20:07)
[2023-11-19] MEDS: Losartan Potassium 50 MG TABLET 100 MG PO (08:13)
[2023-11-19] MEDS: Tamsulosin HCL 0.4 MG CAPSULE PO (08:13)
[2023-11-19] MEDS: Acetaminophen 325 MG TABLET 650 MG PO (08:15)
--- NOTE | 2023-11-19 09:00 | HO.POSTANES ---
Post Anesthesia Evaluation Post Anesthesia Evaluation Date of Service: 11/19/23 Vital Signs: Vital Signs Temp Pulse Resp BP Pulse Ox O2 Del Method 11/19/23 08:13 142/69 H 11/19/23 08:00 97.0 F 83 20 142/69 H 97 Room Air 11/19/23 00:00 96.9 F 85 20 131/76 97 Room Air Anesthesia: General LMA Mental Status: Awake Pain Control: Satisfactory Nausea/Vomiting: None Hydration: Adequate Anesthesia-Related Issues: No Anes. Related Issues
--- NOTE | 2023-11-19 11:05 | MHC.CLN ---
F/U PT WITH INCREASED NUTRITION RISK R/T PRESSURE INJURY PO INTAKE EXCELLENT DIET RX: REGULAR -RECOMMEND 1800DM DIET TO MEET NEEDS AND PROMOTE WOUND HEALING WILL RE-START ENSURE MAX BID TO PROMOTE WOUND HEALING SUPP TO PROVIDE 300KCALS, 60G PROTEIN MONITOR PO AND ENCOURAGE SUPPLEMENTS
--- NOTE | 2023-11-19 11:27 | MHC.CM.PN ---
Pt. is not yet ready for DC, he is requiring IV ABX. PT and OT services at home are recommended for DC. Update sent to [facility] and request for PT and OT services for pt. when he goes home.
[2023-11-19 11:53] LABS: Glucose, Whole Blood 232 mg/dL (60-115)
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
[2023-11-19 16:22] LABS: Glucose, Whole Blood 153 mg/dL (60-115)
[2023-11-19] MEDS: oxyCODONE HCl Immed Release 5 MG TABLET PO (20:06)
[2023-11-19] MEDS: Atorvastatin Calcium 80 MG TABLET PO (20:07)
[2023-11-19 21:23] LABS: Glucose, Whole Blood 161 mg/dL (60-115)
[2023-11-19] MEDS: Insulin Glargine,Hum.rec.anlog 100 UNIT/ML 10 ML VIAL 15 UNIT SUBCUT (21:43)
[2023-11-19] MEDS: Melatonin 3 MG TABLET 6 MG PO (23:13)
[2023-11-20] MEDS: 0.9 % Sodium Chloride Flush 3 ML SYRINGE IVFLUSH ×4 (00:31→23:38)
[2023-11-20 03:25] VITALS: BP 153/72; PULSE 81; RESP 18; TEMP 36.9; O2SAT 96
[2023-11-20] MEDS: Piperacillin Sodium/Tazobactam 4.5 GM in 0.9 % Sodium Chloride 100 ML IV ×2 (05:57→11:32)
[2023-11-20] MEDS: vancomycin HCL 1,500 MG in 0.9 % Sodium Chloride 500 ML 333.33 MG IV (07:06)
[2023-11-20 07:16] LABS: Hematocrit 32.5 % (42.0-52.0); Hemoglobin 10.3 g/dl (14.0-18.0); Mean Corpuscular HGB Conc 31.7 g/dl (31.0-36.0); Mean Corpuscular Hemoglobin 27.7 pg (27.0-33.0); Mean Corpuscular Volume 87.4 fL (80.0-98.0); Mean Platelet Volume 10.1 fL (9.4-12.4); Platelet Count 384 X10*3/uL (160-400); Red Blood Count 3.72 X10*6/uL (4.60-5.80); White Blood Count 10.4 X10*3/uL (4.8-10.8)
[2023-11-20 07:42] LABS: Glucose, Whole Blood 137 mg/dL (60-115)
[2023-11-20 07:43] LABS: Creatinine Clr Calc Pharmacy 114.5; Estimated Glomerular Filt Rate > 60
[2023-11-20 07:49] LABS: Anion Gap 10 (12-20); Blood Urea Nitrogen 11 mg/dL (9-16); Calcium 9.2 mg/dL (8.4-10.2); Carbon Dioxide 23 mmol/L (22-29); Chloride 107 mmol/L (96-108); Estimated Glomerular Filt Rate > 60; Glucose Random 154 mg/dL (60-115); Sodium 136 mmol/L (135-145)
[2023-11-20 07:57] VITALS: BP 126/67; PULSE 75; RESP 20; TEMP 36.5; O2SAT 98
[2023-11-20] MEDS: Losartan Potassium 50 MG TABLET 100 MG PO (08:24)
[2023-11-20] MEDS: Tamsulosin HCL 0.4 MG CAPSULE PO (08:24)
[2023-11-20] MEDS: Gabapentin 300 MG CAPSULE PO ×3 (08:25→19:55)
[2023-11-20] MEDS: Aspirin Enteric Coated 81 MG TABLET.DR PO (08:25)
[2023-11-20 11:12] LABS: Glucose, Whole Blood 202 mg/dL (60-115)
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
[2023-11-20] MEDS: Insulin Lispro 100 UNIT/ML 3 ML VIAL SUBCUT ×3 (11:32→22:16)
[2023-11-20 11:37] VITALS: BP 131/74; PULSE 83; RESP 20; TEMP 36.2; O2SAT 97
--- NOTE | 2023-11-20 11:50 | PM.PNORT ---
Subjective Subjective Date of Service: 11/20/23 Principal diagnosis: left dorsal hand infection Interval history: Patient is a 58-year-old male who is postop day 1 for repeat irrigation and debridement of left hand, dates of surgery 11/14/2023, 11/16/2023, and 11/18/2023. Today, the patient reports that he is feeling well, and has no pain in his left hand. Patient is concerned that he feels that his bandage may be saturated due to large amounts of drainage. Patient also reports that he has noticed some increased range of motion in his left hand since working with occupational therapy yesterday. Patient has no other complaints or concerns at this time. Physical Exam Vital Signs: Vital Signs: Last Vital Signs Temp 97.2 F 11/20/23 11:37 Pulse 83 11/20/23 11:37 Resp 20 11/20/23 11:37 BP 131/74 11/20/23 11:37 Pulse Ox 97 11/20/23 11:37 O2 Del Method Room Air 11/20/23 11:37 O2 Flow Rate 2 11/16/23 12:40 Oxygen Flow Rate 2 11/14/23 09:57 BMI result Body Mass Index 36.3 Extrem: Other: Patient is alert, oriented, and in no acute distress. Neuro: Median, ulnar, radial nerves motor and sensory intact and sensation is normal to the tips of all digits. Vascular: Cap refill brisk Pain: Patient reports no pain or tenderness to palpation in or hand at this time ROM: Limited range of motion of the left hand, patient is unable to make a closed fist, but improved from yesterday Skin: Incision site from yesterday well approximated, with sutures in place. Large amounts of serosanguineous discharge noted on dressing. Some Edema noted on the dorsum of the left hand, improved from yesterday . Psych: Appears grossly normal Affect normal Attitude cooperative Procedures Date of Service Date of Service: 11/20/23 Progress Note: A&P Assessment and plan (1) Infection of left hand: Status: Acute Plan 1. Infection of left hand, status post irrigation and debridement x3 DOS 11/14/2023, 11/16/2023, 11/18/2023 Patient is doing well postoperatively Patient is educated about the typical postoperative course Dressing changed this morning Change dressing as needed to prevent saturation Continue IV antibiotics per Medicine Patient will be re-evaluated tomorrow a.m. Time Spent With Patient Time: Total time managing care of this patient today ____ minutes. Quality Stroke Does the patient have a stroke diagnosis?: No VTE Prior VTE?: No VTE Risk Level:: Medical - moderate - high VTE Device Contraindication: Treatment Not Indicated VTE Drug Contraindication: N/A - Med Ordered
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
[2023-11-20 16:00] VITALS: BP 112/62; PULSE 85; PULSE 88; RESP 20; TEMP 36.7; O2SAT 97
[2023-11-20 16:27] LABS: Vancomycin Random 22.1 mcg/mL (15-20)
[2023-11-20 16:29] LABS: Glucose, Whole Blood 155 mg/dL (60-115)
--- NOTE | 2023-11-20 16:36 | HE.PHANOTE ---
RE: Vanco changing vanco dose to 1250 mg Q12H per supratherapeutic trough of 22.1. Using obese model, predicted trough AUC 481. Next trough to be drawn 11/20 @1500.
[2023-11-20] MEDS: vancomycin HCL 1,250 MG in 0.9 % Sodium Chloride 250 ML 166.67 MG IV (16:53)
[2023-11-20] MEDS: oxyCODONE HCl Immed Release 5 MG TABLET PO (16:59)
[2023-11-20] MEDS: Atorvastatin Calcium 80 MG TABLET PO (19:55)
[2023-11-20 20:00] VITALS: BP 145/66; PULSE 85; RESP 20; TEMP 36.6; O2SAT 96
[2023-11-20 21:12] LABS: Glucose, Whole Blood 192 mg/dL (60-115)
[2023-11-20] MEDS: Insulin Glargine,Hum.rec.anlog 100 UNIT/ML 10 ML VIAL 15 UNIT SUBCUT (22:17)
[2023-11-20 23:53] VITALS: PULSE 89
[2023-11-21] VITALS (7 sets, daily range): BP systolic 119–156; BP diastolic 63–77; PULSE 62–136; RESP 18–19; TEMP 36.1–37.2; O2SAT 96–99
[2023-11-21] MEDS: vancomycin HCL 1,250 MG in 0.9 % Sodium Chloride 250 ML 166.67 MG IV (05:23)
[2023-11-21] MEDS: oxyCODONE HCl Immed Release 5 MG TABLET PO ×2 (05:25→17:08)
--- NOTE | 2023-11-21 06:27 | PC.NURSE ---
Patient's HR overnight as low as the 30's although returns to the 70's., 2.1 sec pause , and a ventricular escape beat noted. Provider notified. Patient sleeping/asymptomatic. VSS, will continue to monitor.
[2023-11-21 07:54] LABS: Glucose, Whole Blood 168 mg/dL (60-115)
[2023-11-21 07:59] LABS: Estimated Glomerular Filt Rate > 60
[2023-11-21] MEDS: Insulin Lispro 100 UNIT/ML 3 ML VIAL SUBCUT ×2 (08:08→12:16)
[2023-11-21] MEDS: Tamsulosin HCL 0.4 MG CAPSULE PO (08:09)
[2023-11-21] MEDS: 0.9 % Sodium Chloride Flush 3 ML SYRINGE IVFLUSH ×3 (08:09→22:03)
[2023-11-21] MEDS: Gabapentin 300 MG CAPSULE PO ×3 (08:09→20:11)
[2023-11-21] MEDS: Aspirin Enteric Coated 81 MG TABLET.DR PO (08:09)
[2023-11-21] MEDS: Losartan Potassium 50 MG TABLET 100 MG PO (08:11)
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
[2023-11-21 11:31] LABS: Glucose, Whole Blood 207 mg/dL (60-115)
--- NOTE | 2023-11-21 11:38 | PM.PNORT ---
Subjective Subjective Date of Service: 11/21/23 Principal diagnosis: left dorsal hand infection Interval history: Patient is a 58-year-old male who is admitted to the hospital for infection of the dorsum of the left hand status post irrigation and debridement x3, dates of surgery 11/14/2023, 11/16/2023, and 11/18/2023. Today, the patient reports that he is feeling well and not experiencing pain, but he is still experiencing very limited range of motion of his left hand. Patient reports that he worked with occupational therapy yesterday, and they will be seeing him again tomorrow. No other acute concerns at this time Physical Exam Vital Signs: Vital Signs: Last Vital Signs Temp 97.2 F 11/21/23 08:00 Pulse 79 11/21/23 08:00 Resp 18 11/21/23 08:00 BP 154/77 H 11/21/23 08:00 Pulse Ox 99 11/21/23 08:00 O2 Del Method Room Air 11/21/23 08:00 O2 Flow Rate 2 11/16/23 12:40 Oxygen Flow Rate 2 11/14/23 09:57 BMI result Body Mass Index 36.3 Extrem: Other: Patient is alert, oriented, and in no acute distress. Neuro: Median, ulnar, radial nerves motor and sensory intact and sensation is normal to the tips of all digits. Vascular: Cap refill brisk Pain: Patient reports no pain or tenderness to palpation in or hand at this time ROM: Very Limited range of motion of the left hand, patient is unable to make a closed fist Skin: Incision sites well approximated, with sutures in place. Large amounts of serosanguineous discharge noted on dressing, with no lawson purulence noted. Mild Edema noted on the dorsum of the left hand Psych: Appears grossly normal Affect normal Attitude cooperative Procedures Date of Service Date of Service: 11/21/23 Progress Note: A&P Assessment and plan (1) Infection of left hand: Status: Acute Plan 1. Left hand infection status post irrigation and debridement x3 Dates of surgery 11/14/2023, 11/16/2023, 11/18/2023 After consultation and discussion with Dr. Gomez, a joint treatment plan was formed: Due to continuing large amounts of drainage from the left hand and suspicion for continuing infection within the left hand, it was decided that we will bring the patient back for another repeat irrigation and debridement tomorrow Patient is amenable to this plan Patient NPO at midnight Continue with IV antibiotics per Medicine Dressing changed at this time Time Spent With Patient Time: Total time managing care of this patient today ____ minutes. Quality Stroke Does the patient have a stroke diagnosis?: No VTE Prior VTE?: No VTE Risk Level:: Medical - moderate - high VTE Device Contraindication: Treatment Not Indicated VTE Drug Contraindication: N/A - Med Ordered
[2023-11-21 16:38] LABS: Glucose, Whole Blood 146 mg/dL (60-115)
[2023-11-21] MEDS: vancomycin HCL 1,250 MG in 0.9 % Sodium Chloride 250 ML 166.66 MG IV (17:01)
--- NOTE | 2023-11-21 18:40 | PC.NURSE ---
dressing to left hand changed by RN this afternoon , moderate yellow drainage on old dressing
[2023-11-21] MEDS: Atorvastatin Calcium 80 MG TABLET PO (20:10)
[2023-11-21 21:49] LABS: Glucose, Whole Blood 165 mg/dL (60-115)
[2023-11-21 21:59] LABS: Glucose, Whole Blood 150 mg/dL (60-115)
[2023-11-21] MEDS: Insulin Glargine,Hum.rec.anlog 100 UNIT/ML 10 ML VIAL 15 UNIT SUBCUT (22:02)
[2023-11-21] MEDS: Melatonin 3 MG TABLET 6 MG PO (22:02)
[2023-11-22] VITALS (14 sets, daily range): BP systolic 103–168; BP diastolic 35–76; PULSE 63–89; RESP 16–20; TEMP 36–37; O2SAT 96–99
[2023-11-22 04:55] LABS: HIV AB/AG Nonreactive (Nonreactive); HIV Num 1 0.04 S/CO (0.00-0.99); ~HepC Num1 0.22 S/CO (0.00-0.79); ~Hepatitis C Antibody Nonreactive (Nonreactive)
[2023-11-22] MEDS: vancomycin HCL 1,250 MG in 0.9 % Sodium Chloride 250 ML 166.66 MG IV (05:01)
[2023-11-22 06:57] LABS: Creatinine Clr Calc Pharmacy 103.6; Estimated Glomerular Filt Rate > 60
[2023-11-22 07:39] LABS: Glucose, Whole Blood 131 mg/dL (60-115)
[2023-11-22] MEDS: Aspirin Enteric Coated 81 MG TABLET.DR PO (09:49)
[2023-11-22] MEDS: Losartan Potassium 50 MG TABLET 100 MG PO (09:49)
[2023-11-22] MEDS: oxyCODONE HCl Immed Release 5 MG TABLET PO ×2 (09:49→21:01)
[2023-11-22] MEDS: Tamsulosin HCL 0.4 MG CAPSULE PO (09:49)
[2023-11-22] MEDS: 0.9 % Sodium Chloride Flush 3 ML SYRINGE IVFLUSH ×2 (09:51→20:49)
[2023-11-22] MEDS: Gabapentin 300 MG CAPSULE PO ×2 (09:53→20:47)
--- NOTE | 2023-11-22 10:08 | MHC.CLN ---
F/U PT WITH INCREASED NUTRITION RISK R/T PRESSURE INJURY PREVIOUS PO INTAKE EXCELLENT PT IS CURRENTLY NPO WHEN DIET TO RESUME; RECOMMEND 1800DM DIET TO MEET NEEDS AND PROMOTE WOUND HEALING RE-START ENSURE MAX BID TO PROMOTE WOUND HEALING SUPP TO PROVIDE 300KCALS, 60G PROTEIN MONITOR FOR DIET ADVANCEMENT
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
--- NOTE | 2023-11-22 11:01 | MHC.CM.PN ---
Per ROUNDS discussion, Patient is not yet medically cleared for dc (I & D of hand today); home is the goal and CM will continue to follow.
[2023-11-22 11:03] LABS: MANUAL DIFF FLAG NO
[2023-11-22 11:04] LABS: Basophils Percent Auto 0.3 % (0-2); Eosinophils Absolute Auto 0.3 X10*3/uL (0.0-0.4); Eosinophils Percent Auto 2.9 % (0-4); Hematocrit 32.3 % (42.0-52.0); Hemoglobin 10.1 g/dl (14.0-18.0); Imm Gran Abs Auto 0.15 X10*3/uL (0.00-0.03); Imm Gran Pct Auto 1.4 % (0.0-0.4); Lymphocytes Absolute Auto 3.9 X10*3/uL (1.2-4.9); Lymphocytes Percent Auto 36.5 % (20-40); Mean Corpuscular HGB Conc 31.3 g/dl (31.0-36.0); Mean Corpuscular Hemoglobin 27.7 pg (27.0-33.0); Mean Corpuscular Volume 88.7 fL (80.0-98.0); Monocytes Absolute Auto 0.8 X10*3/uL (0.1-1.2); Monocytes Percent Auto 7.9 % (2-11); Neutrophils Absolute Auto 5.4 x10*3/uL (2.0-8.3); Platelet Count 441 X10*3/uL (160-400); Red Blood Count 3.64 X10*6/uL (4.60-5.80); Red Cell Distribution Width 15.2 % (11.0-16.0); White Blood Count 10.6 X10*3/uL (4.8-10.8)
[2023-11-22 11:08] LABS: Anion Gap 13 (12-20)
[2023-11-22 11:11] LABS: Blood Urea Nitrogen 17 mg/dL (9-16); Calcium 8.8 mg/dL (8.4-10.2); Carbon Dioxide 21 mmol/L (22-29); Chloride 108 mmol/L (96-108); Glucose Random 141 mg/dL (60-115); Potassium 4.1 mmol/L (3.3-5.1); Sodium 138 mmol/L (135-145)
[2023-11-22 11:19] LABS: Glucose, Whole Blood 117 mg/dL (60-115)
--- NOTE | 2023-11-22 15:06 | PC.NURSE ---
right wrist 22g asymptomatic. flushing patently.
[2023-11-22 15:14] LABS: Glucose, Whole Blood 91 mg/dL (60-115)
--- NOTE | 2023-11-22 16:09 | HO.ANESPROP2 ---
HPI - Anesthesia Eval Consult details Narrative: for I and D [facility] Active Problems Active Problems: All Active Problems Infection of left hand (Acute) Abscess of dorsum of left hand (Acute) Chronic constipation (Acute) Encounter for screening colonoscopy (Acute) Toxic encephalopathy (Acute) Opioid use disorder (Acute) Abnormal head CT (Acute) Transaminitis (Acute) Sepsis (Acute) Acute metabolic encephalopathy (Acute) Substance abuse (Acute) Acute alteration in mental status (Acute) Fever (Acute) Cardiomyopathy (Acute) Ventricular fibrillation (Acute) Hypersomnia (Acute) Hepatitis B core antibody positive (Acute) Morbid obesity (Acute) Uncontrolled type 2 diabetes mellitus (Acute) Cocaine abuse (Acute) Tobacco abuse (Acute) Chronic HFrEF (heart failure with reduced ejection fraction) (Acute) Atypical chest pain (Acute) Opioid use disorder, severe, in controlled environment, dependence (Acute) NICM (nonischemic cardiomyopathy) (Acute) Morbid obesity (Acute) Past Medical History Medical History Type 2 diabetes mellitus with unspecified complications Essential hypertension Unstable angina History of CVA (cerebrovascular accident) Diabetes HTN (hypertension) Morbid obesity Chest pain Family History Family History Other CAD (coronary artery disease) Diabetes HTN (hypertension) Family history of problems with anesthesia: No Surgical History Surgical History H/O hand surgery History of Problems with Anesthesia: No Social History Social History Household Members: None Housing: Apartment Do you presently have visiting nurse or other home services: Yes ([facility]) Patient Tobacco Use Status: Current everyday Tobacco user Tobacco use type: Cigarette e-Cigarette/Vaping Use: Never Used Second Hand Smoke Exposure: No Substance Use Type: Heroin service: No Current occupational status: unemployed Meds Allergies Allergy/AdvReac Type Severity Reaction Status Date / Time Penicillins [PCN] Allergy Intermediate HIVES Verified 11/12/23 15:44 Active Medications: Current Medications Acetaminophen (Acetaminophen 325 Mg Tablet) 650 mg PO Q6H PRN PRN Reason: Pain, Mild (Pain Scale 1-3), fever or headache Last Admin: 11/19/23 08:15 Dose: 650 mg Aspirin (Aspirin Enteric Coated 81 Mg Tablet.Dr) 81 mg PO DAILY [facility] Last Admin: 11/22/23 09:49 Dose: 81 mg Atorvastatin Calcium (Atorvastatin Calcium 80 Mg Tablet) 80 mg PO BEDTIME JAMIE Last Admin: 11/21/23 20:10 Dose: 80 mg Calcium Carbonate (Calcium Carbonate 750 Mg Tab.Chew) 750 mg PO Q4H PRN PRN Reason: Heartburn Docusate Sodium (Docusate Sodium 100 Mg Capsule) 200 mg PO BEDTIME PRN PRN Reason: Constipation Gabapentin (Gabapentin 300 Mg Capsule) 300 mg PO TID JAMIE Last Admin: 11/22/23 09:53 Dose: 300 mg Glucose (Glucose Gel 15 Gm Gel..Gram.) 15 gm PO Q15M PRN; Protocol PRN Reason: per Hypoglycemia Standing Ord. Hydroxyzine HCl (Hydroxyzine Hcl 50 Mg Tablet) 50 mg PO BID PRN PRN Reason: Anxiety Last Admin: 11/14/23 08:14 Dose: 50 mg Dextrose (D10) 250 mls @ 750 mls/hr IV Q15M PRN; Protocol PRN Reason: per Hypoglycemia Standing Ord. Vancomycin HCl 1,250 mg/ (Sodium Chloride) 250 mls @ 166.667 mls/hr IV Q12H [facility] Last Infusion: 11/22/23 08:13 Dose: Infused Insulin Glargine (Insulin Glargine,Hum.Rec.Anlog 100 Unit/Ml 10 Ml Vial) 15 unit SUBCUT BEDTIME [facility] Last Admin: 11/21/23 22:02 Dose: 15 unit Insulin Human Lispro (Insulin Lispro 100 Unit/Ml 3 Ml Vial) 0 unit SUBCUT QIDACHS [facility]; Protocol Last Admin: 11/22/23 12:26 Dose: Not Given Losartan Potassium (Losartan Potassium 50 Mg Tablet) 100 mg PO DAILY [facility]; Protocol Last Admin: 11/22/23 09:49 Dose: 100 mg Magnesium Hydroxide (Milk Of Magnesia 30 Ml Oral.Susp) 30 ml PO DAILY PRN PRN Reason: Constipation Melatonin (Melatonin 3 Mg Tablet) 6 mg PO BEDTIME PRN PRN Reason: Insomnia Last Admin: 11/21/23 22:02 Dose: 6 mg Ondansetron HCl (Ondansetron Hcl 4 Mg/2 Ml Vial) 4 mg IVPUSH Q8H PRN PRN Reason: Nausea and Vomiting Oxycodone HCl (Oxycodone Hcl Immed Release 5 Mg Tablet) 5 mg PO Q4H PRN PRN Reason: Pain, Moderate(Pain Scale 4-6) Last Admin: 11/22/23 09:49 Dose: 5 mg Pharmacy Consult (Consult Rx Vancomycin Dosing) 1 each MISCELLANE DAILY PRN PRN Reason: Consult order Polyethylene Glycol (Polyethylene Glycol 3350 17 Gm Powd.Pack) 17 gm PO DAILY PRN PRN Reason: Constipation Sodium Chloride (0.9 % Sodium Chloride Flush 3 Ml Syringe) 3 ml IVFLUSH QSHIFT [facility] Last Admin: 11/22/23 09:51 Dose: 3 ml Tamsulosin HCl (Tamsulosin Hcl 0.4 Mg Capsule) 0.4 mg PO DAILY [facility] Last Admin: 11/22/23 09:49 Dose: 0.4 mg Home Medications ?Medication ?Instructions ?Recorded ?Confirmed ?Last Taken ?Type aspirin 81 mg tablet,delayed 81 mg PO DAILY 01/18/23 11/13/23 Unknown History release docusate sodium 100 mg capsule 100 - 200 mg PO BEDTIME PRN 01/18/23 11/13/23 Unknown History constipation insulin glargine 100 unit/mL (3 30 unit subcut BID 01/18/23 11/13/23 Unknown History mL) subcutaneous pen (Lantus Solostar U-100 Insulin) ammonium lactate 12 % topical cream 1 appl topical DAILY PRN Dry Skin 11/13/23 11/13/23 Unknown History atorvastatin 80 mg tablet 80 mg PO BEDTIME 11/13/23 11/13/23 Unknown History docusate sodium 100 mg capsule 200 mg PO BEDTIME PRN Constipation 11/13/23 11/13/23 Unknown History (Colace) gabapentin 300 mg capsule 300 mg PO TID 11/13/23 11/13/23 Unknown History hydroxyzine HCl 50 mg tablet 50 mg PO BID PRN Anxiety 11/13/23 11/13/23 Unknown History losartan 50 mg tablet 50 mg PO DAILY 11/13/23 11/13/23 Unknown History metformin 500 mg tablet,extended 500 mg PO BID 11/13/23 11/13/23 Unknown History release 24 hr polyethylene glycol 3350 17 17 g PO DAILY PRN Constipation 11/13/23 11/13/23 Unknown History gram/dose oral powder (Miralax) tamsulosin 0.4 mg capsule 0.4 mg PO DAILY 11/13/23 11/13/23 Unknown History Exam Height,Weight and Vital Signs: Height 5 ft 5 in Weight 98.883 kg Last Vital Signs Temp 97.3 F 11/22/23 15:14 Pulse 74 11/22/23 15:14 Resp 20 11/22/23 15:14 BP 146/65 H 11/22/23 15:14 Pulse Ox 99 11/22/23 15:14 O2 Del Method Room Air 11/22/23 15:14 O2 Flow Rate 2 11/16/23 12:40 Oxygen Flow Rate 2 11/14/23 09:57 Pertinent Lab Results Pertinent Lab Results: Laboratory Tests 11/12/23 11/12/23 11/13/23 16:16 20:55 07:25 WBC 25.3 H 31.3 H* RBC 4.16 L 3.78 L Hgb 11.7 L 10.6 L Hct 35.8 L 32.5 L MCV 86.1 86.0 MCH 28.1 28.0 MCHC 32.7 32.6 RDW 14.2 14.3 Plt Count 234 223 MPV 10.5 10.5 Immature Gran % (Auto) 1.3 H Cancelled Neut % (Auto) 84.5 H Cancelled Lymph % (Auto) 7.8 L Cancelled [place] % (Auto) 5.9 Cancelled Eos % (Auto) 0.2 Cancelled Baso % (Auto) 0.3 Cancelled Lymph # (Auto) 2.0 Cancelled [place] # (Auto) 1.5 H Cancelled Eos # (Auto) 0.0 Cancelled Baso # (Auto) 0.1 Cancelled Abs Immat Gran (auto) 0.34 H Cancelled Absolute Neuts (auto) 21.4 H Cancelled Absolute Nucleated RBC 0.000 0.000 Nucleated RBC % (auto) 0.0 0.0 Neutrophils % (Manual) 82 H Band Neutrophils % 1 L Lymphocytes % (Manual) 8 L Monocytes % (Manual) 9 Abs Neuts (Manual) 26.0 H Lymphocytes # (Manual) 2.5 Monocytes # (Manual) 2.8 H Toxic Vacuolation PRESENT Platelet Estimate NORMAL Plt Morphology Comment NORMAL RBC Morphology NOTED Krystyna Cells 1+ (0-2) Acanthocytes (Spur) 1+ (0-2) Schistocytes 1+ (0-2) Smear Tech's Comments VERIFIED Smear Path Review SEE NOTE ESR 77 H Hold Purple Top Sodium 136 140 Potassium 3.0 L D 3.4 Chloride 97 105 Carbon Dioxide 29 26 Anion Gap 13 12 BUN 9 9 Creatinine 0.88 0.81 Estim Creat Clear Calc 98.9 107.4 Estimated GFR > 60 > 60 POC Glucose 124 H Random Glucose 142 H 137 H Lactic Acid 1.9 Calcium 9.0 8.4 D Magnesium 1.7 C-Reactive Protein 26.79 H Lipase 21 Random Vancomycin Hepatitis C Ab (EIA) HIV 1&2 Ab/P24 Ag 4thGn 11/13/23 11/13/23 11/13/23 08:01 11:41 15:06 WBC RBC Hgb Hct MCV MCH MCHC RDW Plt Count MPV Immature Gran % (Auto) Neut % (Auto) Lymph % (Auto) [place] % (Auto) Eos % (Auto) Baso % (Auto) Lymph # (Auto) [place] # (Auto) Eos # (Auto) Baso # (Auto) Abs Immat Gran (auto) Absolute Neuts (auto) Absolute Nucleated RBC Nucleated RBC % (auto) Neutrophils % (Manual) Band Neutrophils % Lymphocytes % (Manual) Monocytes % (Manual) Abs Neuts (Manual) Lymphocytes # (Manual) Monocytes # (Manual) Toxic Vacuolation Platelet Estimate Plt Morphology Comment RBC Morphology Krystyna Cells Acanthocytes (Spur) Schistocytes Smear Tech's Comments Smear Path Review ESR Hold Purple Top Sodium Potassium Chloride Carbon Dioxide Anion Gap BUN Creatinine Estim Creat Clear Calc Estimated GFR POC Glucose 164 H 113 Random Glucose Lactic Acid Calcium Magnesium C-Reactive Protein Lipase Random Vancomycin 13.8 L Hepatitis C Ab (EIA) HIV 1&2 Ab/P24 Ag 4thGn 11/13/23 11/13/23 11/14/23 16:28 20:55 06:21 WBC RBC Hgb Hct MCV MCH MCHC RDW Plt Count MPV Immature Gran % (Auto) Neut % (Auto) Lymph % (Auto) [place] % (Auto) Eos % (Auto) Baso % (Auto) Lymph # (Auto) [place] # (Auto) Eos # (Auto) Baso # (Auto) Abs Immat Gran (auto) Absolute Neuts (auto) Absolute Nucleated RBC Nucleated RBC % (auto) Neutrophils % (Manual) Band Neutrophils % Lymphocytes % (Manual) Monocytes % (Manual) Abs Neuts (Manual) Lymphocytes # (Manual) Monocytes # (Manual) Toxic Vacuolation Platelet Estimate Plt Morphology Comment RBC Morphology [place] Cells Acanthocytes (Spur) Schistocytes Smear Tech's Comments Smear Path Review ESR Hold Purple Top Sodium Potassium Chloride Carbon Dioxide Anion Gap BUN Creatinine 0.76 Estim Creat Clear Calc 114.5 Estimated GFR > 60 POC Glucose 189 H 180 H Random Glucose Lactic Acid Calcium Magnesium C-Reactive Protein Lipase Random Vancomycin Hepatitis C Ab (EIA) HIV 1&2 Ab/P24 Ag 4thGn 11/14/23 11/14/23 11/14/23 07:54 07:55 11:58 WBC 29.5 H RBC 3.78 L Hgb 10.7 L Hct 32.7 L MCV 86.5 MCH 28.3 MCHC 32.7 RDW 14.4 Plt Count 236 MPV 10.3 Immature Gran % (Auto) Neut % (Auto) Lymph % (Auto) [place] % (Auto) Eos % (Auto) Baso % (Auto) Lymph # (Auto) [place] # (Auto) Eos # (Auto) Baso # (Auto) Abs Immat Gran (auto) Absolute Neuts (auto) Absolute Nucleated RBC 0.000 Nucleated RBC % (auto) 0.0 Neutrophils % (Manual) Band Neutrophils % Lymphocytes % (Manual) Monocytes % (Manual) Abs Neuts (Manual) Lymphocytes # (Manual) Monocytes # (Manual) Toxic Vacuolation Platelet Estimate Plt Morphology Comment RBC Morphology Krystyna Cells Acanthocytes (Spur) Schistocytes Smear Tech's Comments Smear Path Review ESR Hold Purple Top Sodium 140 Potassium 3.1 L Chloride 106 Carbon Dioxide 26 Anion Gap 11 L BUN 8 L Creatinine 0.73 Estim Creat Clear Calc 119.2 Estimated GFR > 60 POC Glucose 102 92 Random Glucose 103 Lactic Acid Calcium 8.8 Magnesium 1.7 C-Reactive Protein Lipase Random Vancomycin Hepatitis C Ab (EIA) HIV 1&2 Ab/P24 Ag 4thGn 11/14/23 11/14/23 11/14/23 15:07 15:54 20:35 WBC RBC Hgb Hct MCV MCH MCHC RDW Plt Count MPV Immature Gran % (Auto) Neut % (Auto) Lymph % (Auto) [place] % (Auto) Eos % (Auto) Baso % (Auto) Lymph # (Auto) [place] # (Auto) Eos # (Auto) Baso # (Auto) Abs Immat Gran (auto) Absolute Neuts (auto) Absolute Nucleated RBC Nucleated RBC % (auto) Neutrophils % (Manual) Band Neutrophils % Lymphocytes % (Manual) Monocytes % (Manual) Abs Neuts (Manual) Lymphocytes # (Manual) Monocytes # (Manual) Toxic Vacuolation Platelet Estimate Plt Morphology Comment RBC Morphology Krystyna Cells Acanthocytes (Spur) Schistocytes Smear Tech's Comments Smear Path Review ESR Hold Purple Top Sodium Potassium Chloride Carbon Dioxide Anion Gap BUN Creatinine Estim Creat Clear Calc Estimated GFR POC Glucose 189 H 182 H Random Glucose Lactic Acid Calcium Magnesium C-Reactive Protein Lipase Random Vancomycin 12.1 L Hepatitis C Ab (EIA) HIV 1&2 Ab/P24 Ag 4thGn 11/14/23 11/15/23 11/15/23 23:27 01:03 05:40 WBC RBC Hgb Hct MCV MCH MCHC RDW Plt Count MPV Immature Gran % (Auto) Neut % (Auto) Lymph % (Auto) [place] % (Auto) Eos % (Auto) Baso % (Auto) Lymph # (Auto) [place] # (Auto) Eos # (Auto) Baso # (Auto) Abs Immat Gran (auto) Absolute Neuts (auto) Absolute Nucleated RBC Nucleated RBC % (auto) Neutrophils % (Manual) Band Neutrophils % Lymphocytes % (Manual) Monocytes % (Manual) Abs Neuts (Manual) Lymphocytes # (Manual) Monocytes # (Manual) Toxic Vacuolation Platelet Estimate Plt Morphology Comment RBC Morphology [place]ois Cells Acanthocytes (Spur) Schistocytes Smear Tech's Comments Smear Path Review ESR Hold Purple Top SEE NOTE Sodium Potassium Chloride Carbon Dioxide Anion Gap BUN Creatinine 0.76 Estim Creat Clear Calc 114.5 Estimated GFR > 60 POC Glucose 228 H Random Glucose Lactic Acid 1.2 Calcium Magnesium C-Reactive Protein Lipase Random Vancomycin Hepatitis C Ab (EIA) HIV 1&2 Ab/P24 Ag 4thGn 11/15/23 11/15/23 11/15/23 06:50 07:29 10:48 WBC 20.7 H RBC 3.67 L Hgb 10.3 L Hct 31.9 L MCV 86.9 MCH 28.1 MCHC 32.3 RDW 14.6 Plt Count 251 MPV 10.2 Immature Gran % (Auto) Neut % (Auto) Lymph % (Auto) [place] % (Auto) Eos % (Auto) Baso % (Auto) Lymph # (Auto) [place] # (Auto) Eos # (Auto) Baso # (Auto) Abs Immat Gran (auto) Absolute Neuts (auto) Absolute Nucleated RBC 0.000 Nucleated RBC % (auto) 0.0 Neutrophils % (Manual) Band Neutrophils % Lymphocytes % (Manual) Monocytes % (Manual) Abs Neuts (Manual) Lymphocytes # (Manual) Monocytes # (Manual) Toxic Vacuolation Platelet Estimate Plt Morphology Comment RBC Morphology Krystyna Cells Acanthocytes (Spur) Schistocytes Smear Tech's Comments Smear Path Review ESR Hold Purple Top Sodium 138 Potassium 3.4 Chloride 106 Carbon Dioxide 26 Anion Gap 9 L BUN 8 L Creatinine 0.71 Estim Creat Clear Calc 122.6 Estimated GFR > 60 POC Glucose 171 H 241 H Random Glucose 191 H Lactic Acid Calcium 8.7 Magnesium C-Reactive Protein Lipase Random Vancomycin Hepatitis C Ab (EIA) HIV 1&2 Ab/P24 Ag 4thGn 11/15/23 11/15/23 11/15/23 15:06 16:31 20:46 WBC RBC Hgb Hct MCV MCH MCHC RDW Plt Count MPV Immature Gran % (Auto) Neut % (Auto) Lymph % (Auto) [place] % (Auto) Eos % (Auto) Baso % (Auto) Lymph # (Auto) [place] # (Auto) Eos # (Auto) Baso # (Auto) Abs Immat Gran (auto) Absolute Neuts (auto) Absolute Nucleated RBC Nucleated RBC % (auto) Neutrophils % (Manual) Band Neutrophils % Lymphocytes % (Manual) Monocytes % (Manual) Abs Neuts (Manual) Lymphocytes # (Manual) Monocytes # (Manual) Toxic Vacuolation Platelet Estimate Plt Morphology Comment RBC Morphology [place]ois Cells Acanthocytes (Spur) Schistocytes Smear Tech's Comments Smear Path Review ESR Hold Purple Top Sodium Potassium Chloride Carbon Dioxide Anion Gap BUN Creatinine Estim Creat Clear Calc Estimated GFR POC Glucose 175 H 162 H Random Glucose Lactic Acid Calcium Magnesium C-Reactive Protein Lipase Random Vancomycin 14.9 L Hepatitis C Ab (EIA) HIV 1&2 Ab/P24 Ag 4thGn 11/16/23 11/16/23 11/16/23 05:25 06:52 11:11 WBC 15.8 H RBC 3.62 L Hgb 10.3 L Hct 31.1 L MCV 85.9 MCH 28.5 MCHC 33.1 RDW 14.7 Plt Count 290 MPV 10.4 Immature Gran % (Auto) Neut % (Auto) Lymph % (Auto) [place] % (Auto) Eos % (Auto) Baso % (Auto) Lymph # (Auto) [place] # (Auto) Eos # (Auto) Baso # (Auto) Abs Immat Gran (auto) Absolute Neuts (auto) Absolute Nucleated RBC 0.000 Nucleated RBC % (auto) 0.0 Neutrophils % (Manual) Band Neutrophils % Lymphocytes % (Manual) Monocytes % (Manual) Abs Neuts (Manual) Lymphocytes # (Manual) Monocytes # (Manual) Toxic Vacuolation Platelet Estimate Plt Morphology Comment RBC Morphology Krystyna Cells Acanthocytes (Spur) Schistocytes Smear Tech's Comments Smear Path Review ESR Hold Purple Top Sodium 138 Potassium 3.3 Chloride 104 Carbon Dioxide 26 Anion Gap 11 L BUN 9 Creatinine 0.71 Estim Creat Clear Calc 122.6 Estimated GFR > 60 POC Glucose 151 H 121 H Random Glucose 144 H Lactic Acid Calcium 8.9 Magnesium C-Reactive Protein Lipase Random Vancomycin Hepatitis C Ab (EIA) HIV 1&2 Ab/P24 Ag 4thGn 11/16/23 11/16/23 11/16/23 13:11 14:54 15:58 WBC RBC Hgb Hct MCV MCH MCHC RDW Plt Count MPV Immature Gran % (Auto) Neut % (Auto) Lymph % (Auto) [place] % (Auto) Eos % (Auto) Baso % (Auto) Lymph # (Auto) [place] # (Auto) Eos # (Auto) Baso # (Auto) Abs Immat Gran (auto) Absolute Neuts (auto) Absolute Nucleated RBC Nucleated RBC % (auto) Neutrophils % (Manual) Band Neutrophils % Lymphocytes % (Manual) Monocytes % (Manual) Abs Neuts (Manual) Lymphocytes # (Manual) Monocytes # (Manual) Toxic Vacuolation Platelet Estimate Plt Morphology Comment RBC Morphology Krystyna Cells Acanthocytes (Spur) Schistocytes Smear Tech's Comments Smear Path Review ESR Hold Purple Top Sodium Potassium Chloride Carbon Dioxide Anion Gap BUN Creatinine Estim Creat Clear Calc Estimated GFR POC Glucose 112 227 H Random Glucose Lactic Acid Calcium Magnesium C-Reactive Protein Lipase Random Vancomycin 17.2 Hepatitis C Ab (EIA) HIV 1&2 Ab/P24 Ag 4thGn 11/16/23 11/17/23 11/17/23 19:56 06:05 07:43 WBC 15.8 H RBC 3.82 L Hgb 10.6 L Hct 32.9 L MCV 86.1 MCH 27.7 MCHC 32.2 RDW 14.7 Plt Count 321 MPV 10.2 Immature Gran % (Auto) Neut % (Auto) Lymph % (Auto) [place] % (Auto) Eos % (Auto) Baso % (Auto) Lymph # (Auto) [place] # (Auto) Eos # (Auto) Baso # (Auto) Abs Immat Gran (auto) Absolute Neuts (auto) Absolute Nucleated RBC 0.000 Nucleated RBC % (auto) 0.0 Neutrophils % (Manual) Band Neutrophils % Lymphocytes % (Manual) Monocytes % (Manual) Abs Neuts (Manual) Lymphocytes # (Manual) Monocytes # (Manual) Toxic Vacuolation Platelet Estimate Plt Morphology Comment RBC Morphology [place] Cells Acanthocytes (Spur) Schistocytes Smear Tech's Comments Smear Path Review ESR Hold Purple Top Sodium 138 Potassium 3.6 Chloride 105 Carbon Dioxide 25 Anion Gap 12 BUN 9 Creatinine 0.77 Estim Creat Clear Calc 113.0 Estimated GFR > 60 POC Glucose 161 H 133 H Random Glucose 135 H Lactic Acid Calcium 9.0 Magnesium C-Reactive Protein Lipase Random Vancomycin Hepatitis C Ab (EIA) HIV 1&2 Ab/P24 Ag 4thGn 11/17/23 11/17/23 11/17/23 12:03 15:30 16:21 WBC RBC Hgb Hct MCV MCH MCHC RDW Plt Count MPV Immature Gran % (Auto) Neut % (Auto) Lymph % (Auto) [place] % (Auto) Eos % (Auto) Baso % (Auto) Lymph # (Auto) [place] # (Auto) Eos # (Auto) Baso # (Auto) Abs Immat Gran (auto) Absolute Neuts (auto) Absolute Nucleated RBC Nucleated RBC % (auto) Neutrophils % (Manual) Band Neutrophils % Lymphocytes % (Manual) Monocytes % (Manual) Abs Neuts (Manual) Lymphocytes # (Manual) Monocytes # (Manual) Toxic Vacuolation Platelet Estimate Plt Morphology Comment RBC Morphology Krystyna Cells Acanthocytes (Spur) Schistocytes Smear Tech's Comments Smear Path Review ESR Hold Purple Top Sodium Potassium Chloride Carbon Dioxide Anion Gap BUN Creatinine Estim Creat Clear Calc Estimated GFR POC Glucose 162 H 153 H Random Glucose Lactic Acid Calcium Magnesium C-Reactive Protein Lipase Random Vancomycin 17.1 Hepatitis C Ab (EIA) HIV 1&2 Ab/P24 Ag 4thGn 11/17/23 11/18/23 11/18/23 20:15 06:10 07:13 WBC RBC Hgb Hct MCV MCH MCHC RDW Plt Count MPV Immature Gran % (Auto) Neut % (Auto) Lymph % (Auto) [place] % (Auto) Eos % (Auto) Baso % (Auto) Lymph # (Auto) [place] # (Auto) Eos # (Auto) Baso # (Auto) Abs Immat Gran (auto) Absolute Neuts (auto) Absolute Nucleated RBC Nucleated RBC % (auto) Neutrophils % (Manual) Band Neutrophils % Lymphocytes % (Manual) Monocytes % (Manual) Abs Neuts (Manual) Lymphocytes # (Manual) Monocytes # (Manual) Toxic Vacuolation Platelet Estimate Plt Morphology Comment RBC Morphology Krystyna Cells Acanthocytes (Spur) Schistocytes Smear Tech's Comments Smear Path Review ESR Hold Purple Top SEE NOTE Sodium Potassium Chloride Carbon Dioxide Anion Gap BUN Creatinine 0.81 Estim Creat Clear Calc 107.4 Estimated GFR > 60 POC Glucose 160 H 170 H Random Glucose Lactic Acid Calcium Magnesium C-Reactive Protein Lipase Random Vancomycin Hepatitis C Ab (EIA) HIV 1&2 Ab/P24 Ag 4thGn 11/18/23 11/18/23 11/18/23 10:13 13:18 15:17 WBC RBC Hgb Hct MCV MCH MCHC RDW Plt Count MPV Immature Gran % (Auto) Neut % (Auto) Lymph % (Auto) [place] % (Auto) Eos % (Auto) Baso % (Auto) Lymph # (Auto) [place] # (Auto) Eos # (Auto) Baso # (Auto) Abs Immat Gran (auto) Absolute Neuts (auto) Absolute Nucleated RBC Nucleated RBC % (auto) Neutrophils % (Manual) Band Neutrophils % Lymphocytes % (Manual) Monocytes % (Manual) Abs Neuts (Manual) Lymphocytes # (Manual) Monocytes # (Manual) Toxic Vacuolation Platelet Estimate Plt Morphology Comment RBC Morphology [place] Cells Acanthocytes (Spur) Schistocytes Smear Tech's Comments Smear Path Review ESR Hold Purple Top Sodium Potassium Chloride Carbon Dioxide Anion Gap BUN Creatinine Estim Creat Clear Calc Estimated GFR POC Glucose 141 H 109 182 H Random Glucose Lactic Acid Calcium Magnesium C-Reactive Protein Lipase Random Vancomycin Hepatitis C Ab (EIA) HIV 1&2 Ab/P24 Ag 4thGn 11/18/23 11/18/23 11/18/23 15:46 20:20 21:09 WBC RBC Hgb Hct MCV MCH MCHC RDW Plt Count MPV Immature Gran % (Auto) Neut % (Auto) Lymph % (Auto) [place] % (Auto) Eos % (Auto) Baso % (Auto) Lymph # (Auto) [place] # (Auto) Eos # (Auto) Baso # (Auto) Abs Immat Gran (auto) Absolute Neuts (auto) Absolute Nucleated RBC Nucleated RBC % (auto) Neutrophils % (Manual) Band Neutrophils % Lymphocytes % (Manual) Monocytes % (Manual) Abs Neuts (Manual) Lymphocytes # (Manual) Monocytes # (Manual) Toxic Vacuolation Platelet Estimate Plt Morphology Comment RBC Morphology [place] Cells Acanthocytes (Spur) Schistocytes Smear Tech's Comments Smear Path Review ESR Hold Purple Top Sodium Potassium Chloride Carbon Dioxide Anion Gap BUN Creatinine Estim Creat Clear Calc Estimated GFR POC Glucose 224 H 205 H Random Glucose Lactic Acid Calcium Magnesium C-Reactive Protein Lipase Random Vancomycin 16.7 Hepatitis C Ab (EIA) HIV 1&2 Ab/P24 Ag 4thGn 11/19/23 11/19/23 11/19/23 05:55 07:23 11:42 WBC RBC Hgb Hct MCV MCH MCHC RDW Plt Count MPV Immature Gran % (Auto) Neut % (Auto) Lymph % (Auto) [place] % (Auto) Eos % (Auto) Baso % (Auto) Lymph # (Auto) [place] # (Auto) Eos # (Auto) Baso # (Auto) Abs Immat Gran (auto) Absolute Neuts (auto) Absolute Nucleated RBC Nucleated RBC % (auto) Neutrophils % (Manual) Band Neutrophils % Lymphocytes % (Manual) Monocytes % (Manual) Abs Neuts (Manual) Lymphocytes # (Manual) Monocytes # (Manual) Toxic Vacuolation Platelet Estimate Plt Morphology Comment RBC Morphology [place] Cells Acanthocytes (Spur) Schistocytes Smear Tech's Comments Smear Path Review ESR Hold Purple Top Sodium Potassium Chloride Carbon Dioxide Anion Gap BUN Creatinine 0.72 Estim Creat Clear Calc 120.9 Estimated GFR > 60 POC Glucose 156 H 232 H Random Glucose Lactic Acid Calcium Magnesium C-Reactive Protein Lipase Random Vancomycin Hepatitis C Ab (EIA) HIV 1&2 Ab/P24 Ag 4thGn 11/19/23 11/19/23 11/20/23 16:12 20:50 06:22 WBC 10.4 RBC 3.72 L Hgb 10.3 L Hct 32.5 L MCV 87.4 MCH 27.7 MCHC 31.7 RDW 15.0 Plt Count 384 MPV 10.1 Immature Gran % (Auto) Neut % (Auto) Lymph % (Auto) [place] % (Auto) Eos % (Auto) Baso % (Auto) Lymph # (Auto) [place] # (Auto) Eos # (Auto) Baso # (Auto) Abs Immat Gran (auto) Absolute Neuts (auto) Absolute Nucleated RBC 0.000 Nucleated RBC % (auto) 0.0 Neutrophils % (Manual) Band Neutrophils % Lymphocytes % (Manual) Monocytes % (Manual) Abs Neuts (Manual) Lymphocytes # (Manual) Monocytes # (Manual) Toxic Vacuolation Platelet Estimate Plt Morphology Comment RBC Morphology Krystyna Cells Acanthocytes (Spur) Schistocytes Smear Tech's Comments Smear Path Review ESR Hold Purple Top Sodium 136 Potassium 4.0 Chloride 107 Carbon Dioxide 23 Anion Gap 10 L BUN 11 Creatinine 0.76 Estim Creat Clear Calc Estimated GFR POC Glucose 153 H 161 H Random Glucose Lactic Acid Calcium Magnesium C-Reactive Protein Lipase Random Vancomycin Hepatitis C Ab (EIA) HIV 1&2 Ab/P24 Ag 4thGn 11/20/23 11/20/23 11/20/23 06:22 06:22 06:22 WBC RBC Hgb Hct MCV MCH MCHC RDW Plt Count MPV Immature Gran % (Auto) Neut % (Auto) Lymph % (Auto) [place] % (Auto) Eos % (Auto) Baso % (Auto) Lymph # (Auto) [place] # (Auto) Eos # (Auto) Baso # (Auto) Abs Immat Gran (auto) Absolute Neuts (auto) Absolute Nucleated RBC Nucleated RBC % (auto) Neutrophils % (Manual) Band Neutrophils % Lymphocytes % (Manual) Monocytes % (Manual) Abs Neuts (Manual) Lymphocytes # (Manual) Monocytes # (Manual) Toxic Vacuolation Platelet Estimate Plt Morphology Comment RBC Morphology [place] Cells Acanthocytes (Spur) Schistocytes Smear Tech's Comments Smear Path Review ESR Hold Purple Top Sodium Potassium Chloride Carbon Dioxide Anion Gap BUN Creatinine 0.75 Estim Creat Clear Calc 114.5 116.0 Estimated GFR > 60 > 60 POC Glucose Random Glucose 154 H Lactic Acid Calcium 9.2 Magnesium C-Reactive Protein Lipase Random Vancomycin Hepatitis C Ab (EIA) HIV 1&2 Ab/P24 Ag 4thGn 11/20/23 11/20/23 11/20/23 07:08 11:06 15:08 WBC RBC Hgb Hct MCV MCH MCHC RDW Plt Count MPV Immature Gran % (Auto) Neut % (Auto) Lymph % (Auto) [place] % (Auto) Eos % (Auto) Baso % (Auto) Lymph # (Auto) [place] # (Auto) Eos # (Auto) Baso # (Auto) Abs Immat Gran (auto) Absolute Neuts (auto) Absolute Nucleated RBC Nucleated RBC % (auto) Neutrophils % (Manual) Band Neutrophils % Lymphocytes % (Manual) Monocytes % (Manual) Abs Neuts (Manual) Lymphocytes # (Manual) Monocytes # (Manual) Toxic Vacuolation Platelet Estimate Plt Morphology Comment RBC Morphology Krystyna Cells Acanthocytes (Spur) Schistocytes Smear Tech's Comments Smear Path Review ESR Hold Purple Top Sodium Potassium Chloride Carbon Dioxide Anion Gap BUN Creatinine Estim Creat Clear Calc Estimated GFR POC Glucose 137 H 202 H Random Glucose Lactic Acid Calcium Magnesium C-Reactive Protein Lipase Random Vancomycin 22.1 H Hepatitis C Ab (EIA) Nonreactive HIV 1&2 Ab/P24 Ag 4thGn Nonreactive 11/20/23 11/20/23 11/21/23 16:26 20:44 06:51 WBC RBC Hgb Hct MCV MCH MCHC RDW Plt Count MPV Immature Gran % (Auto) Neut % (Auto) Lymph % (Auto) [place] % (Auto) Eos % (Auto) Baso % (Auto) Lymph # (Auto) [place] # (Auto) Eos # (Auto) Baso # (Auto) Abs Immat Gran (auto) Absolute Neuts (auto) Absolute Nucleated RBC Nucleated RBC % (auto) Neutrophils % (Manual) Band Neutrophils % Lymphocytes % (Manual) Monocytes % (Manual) Abs Neuts (Manual) Lymphocytes # (Manual) Monocytes # (Manual) Toxic Vacuolation Platelet Estimate Plt Morphology Comment RBC Morphology [place] Cells Acanthocytes (Spur) Schistocytes Smear Tech's Comments Smear Path Review ESR Hold Purple Top Sodium Potassium Chloride Carbon Dioxide Anion Gap BUN Creatinine 0.75 Estim Creat Clear Calc 116.0 Estimated GFR > 60 POC Glucose 155 H 192 H Random Glucose Lactic Acid Calcium Magnesium C-Reactive Protein Lipase Random Vancomycin Hepatitis C Ab (EIA) HIV 1&2 Ab/P24 Ag 4thGn 11/21/23 11/21/23 11/21/23 07:35 11:15 15:02 WBC RBC Hgb Hct MCV MCH MCHC RDW Plt Count MPV Immature Gran % (Auto) Neut % (Auto) Lymph % (Auto) [place] % (Auto) Eos % (Auto) Baso % (Auto) Lymph # (Auto) [place] # (Auto) Eos # (Auto) Baso # (Auto) Abs Immat Gran (auto) Absolute Neuts (auto) Absolute Nucleated RBC Nucleated RBC % (auto) Neutrophils % (Manual) Band Neutrophils % Lymphocytes % (Manual) Monocytes % (Manual) Abs Neuts (Manual) Lymphocytes # (Manual) Monocytes # (Manual) Toxic Vacuolation Platelet Estimate Plt Morphology Comment RBC Morphology Krystyna Cells Acanthocytes (Spur) Schistocytes Smear Tech's Comments Smear Path Review ESR Hold Purple Top Sodium Potassium Chloride Carbon Dioxide Anion Gap BUN Creatinine Estim Creat Clear Calc Estimated GFR POC Glucose 168 H 207 H Random Glucose Lactic Acid Calcium Magnesium C-Reactive Protein Lipase Random Vancomycin 17.0 Hepatitis C Ab (EIA) HIV 1&2 Ab/P24 Ag 4thGn 11/21/23 11/21/23 11/21/23 16:34 20:38 21:55 WBC RBC Hgb Hct MCV MCH MCHC RDW Plt Count MPV Immature Gran % (Auto) Neut % (Auto) Lymph % (Auto) [place] % (Auto) Eos % (Auto) Baso % (Auto) Lymph # (Auto) [place] # (Auto) Eos # (Auto) Baso # (Auto) Abs Immat Gran (auto) Absolute Neuts (auto) Absolute Nucleated RBC Nucleated RBC % (auto) Neutrophils % (Manual) Band Neutrophils % Lymphocytes % (Manual) Monocytes % (Manual) Abs Neuts (Manual) Lymphocytes # (Manual) Monocytes # (Manual) Toxic Vacuolation Platelet Estimate Plt Morphology Comment RBC Morphology [place] Cells Acanthocytes (Spur) Schistocytes Smear Tech's Comments Smear Path Review ESR Hold Purple Top Sodium Potassium Chloride Carbon Dioxide Anion Gap BUN Creatinine Estim Creat Clear Calc Estimated GFR POC Glucose 146 H 165 H 150 H Random Glucose Lactic Acid Calcium Magnesium C-Reactive Protein Lipase Random Vancomycin Hepatitis C Ab (EIA) HIV 1&2 Ab/P24 Ag 4thGn 11/22/23 11/22/23 11/22/23 06:03 07:12 11:09 WBC 10.6 RBC 3.64 L Hgb 10.1 L Hct 32.3 L MCV 88.7 MCH 27.7 MCHC 31.3 RDW 15.2 Plt Count 441 H MPV 10.0 Immature Gran % (Auto) 1.4 H Neut % (Auto) 51.0 Lymph % (Auto) 36.5 [place] % (Auto) 7.9 Eos % (Auto) 2.9 Baso % (Auto) 0.3 Lymph # (Auto) 3.9 [place] # (Auto) 0.8 Eos # (Auto) 0.3 Baso # (Auto) 0.0 Abs Immat Gran (auto) 0.15 H Absolute Neuts (auto) 5.4 Absolute Nucleated RBC 0.000 Nucleated RBC % (auto) 0.0 Neutrophils % (Manual) Band Neutrophils % Lymphocytes % (Manual) Monocytes % (Manual) Abs Neuts (Manual) Lymphocytes # (Manual) Monocytes # (Manual) Toxic Vacuolation Platelet Estimate Plt Morphology Comment RBC Morphology Krystyna Cells Acanthocytes (Spur) Schistocytes Smear Tech's Comments Smear Path Review ESR Hold Purple Top SEE NOTE Sodium 138 Potassium 4.1 Chloride 108 Carbon Dioxide 21 L Anion Gap 13 BUN 17 H Creatinine 0.84 Estim Creat Clear Calc 103.6 Estimated GFR > 60 POC Glucose 131 H 117 H Random Glucose 141 H Lactic Acid Calcium 8.8 Magnesium C-Reactive Protein Lipase Random Vancomycin Hepatitis C Ab (EIA) HIV 1&2 Ab/P24 Ag 4thGn 11/22/23 15:10 WBC RBC Hgb Hct MCV MCH MCHC RDW Plt Count MPV Immature Gran % (Auto) Neut % (Auto) Lymph % (Auto) [place] % (Auto) Eos % (Auto) Baso % (Auto) Lymph # (Auto) [place] # (Auto) Eos # (Auto) Baso # (Auto) Abs Immat Gran (auto) Absolute Neuts (auto) Absolute Nucleated RBC Nucleated RBC % (auto) Neutrophils % (Manual) Band Neutrophils % Lymphocytes % (Manual) Monocytes % (Manual) Abs Neuts (Manual) Lymphocytes # (Manual) Monocytes # (Manual) Toxic Vacuolation Platelet Estimate Plt Morphology Comment RBC Morphology [place] Cells Acanthocytes (Spur) Schistocytes Smear Tech's Comments Smear Path Review ESR Hold Purple Top Sodium Potassium Chloride Carbon Dioxide Anion Gap BUN Creatinine Estim Creat Clear Calc Estimated GFR POC Glucose 91 Random Glucose Lactic Acid Calcium Magnesium C-Reactive Protein Lipase Random Vancomycin Hepatitis C Ab (EIA) HIV 1&2 Ab/P24 Ag 4thGn Airway Mallampati Class: II TM Dist: >3cm Neck ROM: Limited Loose/Missing/Broken Teeth: Yes, Upper and Lower Heart: rrr Lungs: cta Assessment and Plan Assessment Anesthesia Assessment: Anesthesia Plan Discussed Final Anesthetic Review Family History of Problems with Anesthesia: No History of Problems with Anesthesia: No ASA Class: IV Final Preanesthetic Review: No Changes in Pt Med Stat, Meds/Allgs Chart Reviewed, Consent Obtained/Reviewed and Anes Risks/Benef Reviewed Patient Risk: Intermediate Procedure Risk: Low Anesthetic Plan Anesthetic Plan: GA Disposition: Standard PACU
--- NOTE | 2023-11-22 16:35 | MHC.SHP ---
Pre-Procedural Eval Section A - 24 Hr Update-Section A only Date of Service: 11/22/23 The patient is an INPATIENT: No Changes since office visit: No Cold of Flu in the past 2 weeks, No New Medical Problems, No Changes in Medication and No Patient answered all questions The patient has been examined within 24 hours of the surgical procedure. The History & Physical has been completed within 30 days and I have reviewed it.: Yes Section B - Complete if H&P > 30 days Chief Complaint: Hand infection Allergies: Allergies Allergy/AdvReac Type Severity Reaction Status Date / Time Penicillins [PCN] Allergy Intermediate HIVES Verified 11/12/23 15:44 Plan I have reviewed the history and physical and performed a pertinent physical examination on my patient. No changes have occurred unless specified. Time Spent With Patient Time: Total time managing care of this patient today ____ minutes.
--- NOTE | 2023-11-22 16:35 | W.PM.OPN ---
Operative Note Operative Note Date of Service: 11/22/23 Narrative: Operative Note Narrative: Preop diagnosis: Left hand infection Postop diagnosis: Same Procedure: Left hand I&D, including dorsum of the hand and 2 palmar bursa Surgeon: Meredith Gomez MD Anesthesia: General Anesthesia Findings: Mild watery drainage from dorsal, and to palmar wounds. No gross purulence. Significantly improved since 4 days ago. Implants: Iodoform drains x3 Tourniquet time: 0 minutes EBL: 5.0 ml Specimen: None Drains: None Complications: None Disposition: Brought to the recovery room in stable condition Plan: Admit back to floor for IV antibiotics Pull drains and dressing change tomorrow. Continue OT hand therapy Hopeful discharge tomorrow on oral antibiotics. Follow-up in [facility]opedic [facility] in 3-5 days. Outpatient OT would be helpful upon discharge Indications: The patient is a 58 year old bad left hand infection already status post I and D x3 with persistent drainage . The risks and benefits of operative treatment, including but not limited to risk of damage to blood vessels, nerves, tendons, infection, recurrence, persistent pain or numbness, incomplete resolution of preoperative symptoms, or need for further surgery were discussed with the patient and they wished to proceed with surgery. Procedure: Once consent was obtained patient was brought back to the operating suite and placed in the operating table in a supine position. . Perioperative antibiotics and anesthesia was administered by the anesthesia team. A tourniquet was applied to the proximal aspect of the left upper extremity and the limb was prepped and draped in a standard surgical fashion. The tourniquet was not inflated during the case. The sutures were removed from his previous dorsal incision. I then dissected into the dorsum of the hand using tenotomy scissors and also a hemostat. Mild serosanguineous drainage, no creamy purulence as seen 4 days ago. I also used a hemostat to pass from dorsal to volar on either side of the 3rd metacarpal passing into both the thenar space radial to the 3rd metacarpal, and the mid palmar space ulnar to the 3rd metacarpal. Again we see some mild serosanguineous drainage but no creamy purulence, with significant improvement since 4 days ago. I copiously irrigated the dorsal aspect of the hand, and then also irrigated through the mid palmar space and the thenar space with 2 L of normal saline. All wounds were again copiously irrigated with normal saline. I placed iodoform drains into the dorsal, and the 2 volar compartments. This was done to facilitate drainage. The dorsal incision was also closed using some 4-0 Prolene suture. The wound was infiltrated with some 1% lidocaine with epinephrine for postop pain control and a sterile dressing was applied. The patient appears to have tolerated the procedure well and with no complications. All digits were well vascularized conclusion of the case.
[2023-11-22 18:41] LABS: Glucose, Whole Blood 101 mg/dL (60-115)
--- NOTE | 2023-11-22 19:12 | PC.NURSE ---
Assumed care of patient at 19:00. Patient just back to room s/p I+D to hand, returned to room ~1830. Pt due for vanco trough. Phlebotomy requested to come draw this via [employer]; awaiting results.
[2023-11-22 19:56] LABS: Vancomycin Random 19.5 mcg/mL (15-20)
[2023-11-22 20:13] LABS: Glucose, Whole Blood 179 mg/dL (60-115)
[2023-11-22] MEDS: Atorvastatin Calcium 80 MG TABLET PO (20:47)
[2023-11-22] MEDS: Insulin Glargine,Hum.rec.anlog 100 UNIT/ML 10 ML VIAL 15 UNIT SUBCUT (20:48)
[2023-11-22] MEDS: Insulin Lispro 100 UNIT/ML 3 ML VIAL SUBCUT (20:48)
[2023-11-22] MEDS: vancomycin HCL 1,250 MG in 0.9 % Sodium Chloride 250 ML 166.67 MG IV (20:49)
[2023-11-23] VITALS (10 sets, daily range): BP systolic 110–144; BP diastolic 64–74; PULSE 71–93; RESP 16–23; TEMP 36.4–37.3; O2SAT 95–100
[2023-11-23 07:00] LABS: Creatinine Clr Calc Pharmacy 103.6; Estimated Glomerular Filt Rate > 60
[2023-11-23 07:19] LABS: Glucose, Whole Blood 183 mg/dL (60-115)
[2023-11-23] MEDS: Gabapentin 300 MG CAPSULE PO ×3 (07:37→20:31)
[2023-11-23] MEDS: Losartan Potassium 50 MG TABLET 100 MG PO (07:37)
[2023-11-23] MEDS: Aspirin Enteric Coated 81 MG TABLET.DR PO (07:37)
[2023-11-23] MEDS: Tamsulosin HCL 0.4 MG CAPSULE PO (07:37)
[2023-11-23] MEDS: 0.9 % Sodium Chloride Flush 3 ML SYRINGE IVFLUSH ×2 (07:38→17:10)
[2023-11-23] MEDS: oxyCODONE HCl Immed Release 5 MG TABLET PO ×2 (07:38→17:10)
[2023-11-23] MEDS: Insulin Lispro 100 UNIT/ML 3 ML VIAL SUBCUT ×3 (07:49→20:31)
--- NOTE | 2023-11-23 08:24 | HO.POSTANES ---
Post Anesthesia Evaluation Post Anesthesia Evaluation Date of Service: 11/22/23 Vital Signs: Vital Signs Temp Pulse Resp BP Pulse Ox O2 Del Method 11/23/23 07:35 98.4 F 83 16 131/74 99 Room Air 11/23/23 03:51 98.4 F 90 18 110/66 98 Room Air 11/22/23 23:51 98.5 F 87 20 117/76 98 Room Air 11/22/23 22:05 16 Anesthesia: General Mental Status: Awake Pain Control: Satisfactory Nausea/Vomiting: None Hydration: Adequate Anesthesia-Related Issues: No Anes. Related Issues
[2023-11-23] MEDS: vancomycin HCL 1,250 MG in 0.9 % Sodium Chloride 250 ML 166.67 MG IV (08:44)
[2023-11-23 11:16] LABS: Glucose, Whole Blood 260 mg/dL (60-115)
--- NOTE | 2023-11-23 14:57 | MHC.CM.PN ---
CM met with pt. and liquor bridge operator to discuss DC plan. He feels that he could benefit from STR prior to going home, he has been before to [facility]. PT and provider in agreement with referral, referrals made. Pt said that he would have to set up his [employer] again, it is through [facility], and his SW is Radha. [facility] is able to provide home PT and OT. CM to follow and continue to assist with this DC plan.
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
[2023-11-23 15:20] LABS: MANUAL DIFF FLAG NO
[2023-11-23 15:23] LABS: Basophils Percent Auto 0.3 % (0-2); Eosinophils Absolute Auto 0.3 X10*3/uL (0.0-0.4); Eosinophils Percent Auto 2.4 % (0-4); Hematocrit 33.1 % (42.0-52.0); Hemoglobin 10.7 g/dl (14.0-18.0); Imm Gran Abs Auto 0.14 X10*3/uL (0.00-0.03); Imm Gran Pct Auto 1.2 % (0.0-0.4); Lymphocytes Absolute Auto 3.1 X10*3/uL (1.2-4.9); Mean Corpuscular HGB Conc 32.3 g/dl (31.0-36.0); Mean Corpuscular Hemoglobin 28.5 pg (27.0-33.0); Mean Corpuscular Volume 88.3 fL (80.0-98.0); Mean Platelet Volume 9.8 fL (9.4-12.4); Monocytes Percent Auto 8.7 % (2-11); Neutrophils Absolute Auto 6.9 x10*3/uL (2.0-8.3); Neutrophils Percent Auto 60.4 % (45-73); Platelet Count 438 X10*3/uL (160-400); Red Blood Count 3.75 X10*6/uL (4.60-5.80); Red Cell Distribution Width 15.2 % (11.0-16.0); White Blood Count 11.4 X10*3/uL (4.8-10.8)
[2023-11-23 15:37] LABS: Anion Gap 15 (12-20)
[2023-11-23 15:39] LABS: Blood Urea Nitrogen 19 mg/dL (9-16); Calcium 9.1 mg/dL (8.4-10.2); Carbon Dioxide 17 mmol/L (22-29); Chloride 108 mmol/L (96-108); Glucose Random 183 mg/dL (60-115); Sodium 136 mmol/L (135-145)
--- NOTE | 2023-11-23 16:41 | P.PNOP_ITS ---
Subjective Subjective Date of Service: 11/23/23 Principal diagnosis: left dorsal hand infection Interval history: Patient is a 58 YO M who is POD 1 from fourth I&D of L hand infection, dates of surgery 11/14/23, 11/16/23, 11/18/23, and 11/22/23. Patient is doing well today, but reports that he feels his dressing is a little too tight, causing discomfort on the base of the thumb and distal radial wrist. Patient has no other acute concerns at this time. Physical Exam Vital Signs: Vital Signs: Last Vital Signs Temp 97.6 F 11/23/23 15:46 Pulse 77 11/23/23 15:46 Resp 23 H 11/23/23 15:46 BP 144/67 H 11/23/23 15:46 Pulse Ox 98 11/23/23 15:47 O2 Del Method Room Air 11/23/23 15:47 O2 Flow Rate 2 11/16/23 12:40 Oxygen Flow Rate 2 11/14/23 09:57 BMI result Body Mass Index 36.3 Extrem: Other: Patient is alert, oriented, and in no acute distress. Neuro: Median, ulnar, radial nerves motor and sensory intact and sensation is normal to the tips of all digits. Vascular: Cap refill brisk Pain: Patient reports mild discomfort on the radial wrist and base of the thumb due to dressing, but no tenderness to palpation at this time. ROM: Patient has very limited ROM in his L hand, likely secondary to stiffness after being in dressings for so long Skin: Well approximated incisions on the dorsal aspect of the hand, with sutures and drains in place, small amount of serosanguinous discharge present on dressing and upon removal of drains 2 small, open incisions noted on the vol ar aspect of the hand, with drains in place. Some serosanguinous discharge noted upon removal of drains. General: Edema improving No erythema noted No ecchymosis Psych: Appears grossly normal Affect normal Attitude cooperative Procedures Date of Service Date of Service: 11/23/23 Progress Note: A&P Assessment and plan (1) Infection of left hand: Status: Acute Plan 1. Infection of left hand, status post irrigation and debridement x4 Dates of surgery 11/14/23, 11/16/23, 11/18/23, 11/22/23 After consultation and discussion with Dr. Gomez, a collaborative treatment plan was formed: From an orthopedic standpoint, patient can be discharged on oral antibiotics Continue abx per medicine and ID recommendations Patient should likely be sent home with VNA services to assist with daily dressing changes, as patient is likely unable to do this on his own Patient should continue to work with OT for return of normal ROM and strength of his L hand Patient should follow up with orthopedics 3-5 days after discharge for reevaluation, sooner with any acute concerns Time Spent With Patient Time: Total time managing care of this patient today ____ minutes. Quality Stroke Does the patient have a stroke diagnosis?: No VTE Prior VTE?: No VTE Risk Level:: Medical - moderate - high VTE Device Contraindication: Treatment Not Indicated VTE Drug Contraindication: N/A - Med Ordered
[2023-11-23 16:43] LABS: Glucose, Whole Blood 148 mg/dL (60-115)
[2023-11-23 19:36] LABS: Glucose, Whole Blood 220 mg/dL (60-115)
[2023-11-23 19:55] LABS: Vancomycin Random 19.9 mcg/mL (15-20)
[2023-11-23] MEDS: Doxycycline Monohydrate 100 MG CAPSULE PO (20:31)
[2023-11-23] MEDS: Atorvastatin Calcium 80 MG TABLET PO (20:31)
[2023-11-23] MEDS: Insulin Glargine,Hum.rec.anlog 100 UNIT/ML 10 ML VIAL 15 UNIT SUBCUT (20:31)
[2023-11-23] MEDS: Melatonin 3 MG TABLET 6 MG PO (20:32)
[2023-11-24] VITALS: PULSE 86
[2023-11-24] MEDS: 0.9 % Sodium Chloride Flush 3 ML SYRINGE IVFLUSH ×2 (01:36→09:47)
[2023-11-24 03:00] VITALS: BP 114/63; PULSE 71; RESP 19; TEMP 36.4; O2SAT 98
[2023-11-24 06:35] LABS: Creatinine Clr Calc Pharmacy 101.2; Estimated Glomerular Filt Rate > 60
[2023-11-24 07:00] VITALS: BP 129/73; PULSE 80; RESP 18; TEMP 36.2; O2SAT 99
[2023-11-24 07:21] LABS: Glucose, Whole Blood 139 mg/dL (60-115)
[2023-11-24 08:00] VITALS: PULSE 80
--- NOTE | 2023-11-24 08:34 | MHC.CLN ---
F/U PT WITH INCREASED NUTRITION RISK R/T PRESSURE INJURY PO INTAKE REMAINS EXCELLENT DIET RX: 1800DM-APPROPRIATE WILL RE-START ENSURE MAX BID TO PROMOTE WOUND HEALING SUPP TO PROVIDE 300KCALS, 60G PROTEIN MONITOR PO INTAKE AND ENCOURAGE SUPPLEMENT
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
[2023-11-24] MEDS: Aspirin Enteric Coated 81 MG TABLET.DR PO (09:48)
[2023-11-24] MEDS: Losartan Potassium 50 MG TABLET 100 MG PO (09:48)
[2023-11-24] MEDS: Gabapentin 300 MG CAPSULE PO (09:48)
[2023-11-24] MEDS: Doxycycline Monohydrate 100 MG CAPSULE PO (09:48)
[2023-11-24] MEDS: Tamsulosin HCL 0.4 MG CAPSULE PO (10:29)
[2023-11-24 11:00] VITALS: BP 110/59; PULSE 69; RESP 18; TEMP 36.3; O2SAT 99
[2023-11-24 11:08] LABS: Glucose, Whole Blood 223 mg/dL (60-115)
--- NOTE | 2023-11-24 11:08 | MHC.CM.PN ---
Pt. has decided to return home instead of [facility] (yesterday he said he wanted to go to [facility] and he had 2 accepting SNFs). CM called [facility], to ask for MEDICAL DOCTOR MD/MEDICAL DIRECTOR services be reinstated, and was informed that pt. is not active with their services since one month ago due to non compliance. Radha gave CM the contact # for pt.'s CM at [facility], [place] [place], . LM. Pt was offered assistance with transportation to go home, he said he can take the bus with his scooter, offered bus pass, he said it is free. Pt has [facility], for daily nurse visits to give medication, will add services of PT and OT. Pt has been medically cleard for DC, he will go home with VNA services.
[2023-11-24] MEDS: Insulin Lispro 100 UNIT/ML 3 ML VIAL SUBCUT (12:04)
[2023-11-24 12:40] LABS: Blood Urea Nitrogen 18 mg/dL (9-16); Calcium 9.1 mg/dL (8.4-10.2); Carbon Dioxide 23 mmol/L (22-29); Chloride 108 mmol/L (96-108); Glucose Random 156 mg/dL (60-115); Potassium 4.5 mmol/L (3.3-5.1); Sodium 138 mmol/L (135-145)
--- NOTE | 2023-11-24 12:45 | W.MHC.F2F ---
Service Date Service Date: 11/24/23 Encounter Date of encounter: 11/24/23 Reasons for Services Signs and symptoms assessed: left hand abscess and wound Reason for [place] [facility] wound care Reason for occupational therapy: restore joint function Homebound: Leaving the home is medically contraindicated at this time without the asist of a device and/or another person due th the listed conditions above and below. Reason homebound: bedbound/chairbound Homebound supporting statement: homebound d/t wheel chair bound, infected hand and therefore needs the assistance of another person Certification: Based on the above findings, I certify that this patient is confined to the home and needs intermittent [place] [facility] care, physical therapy and/or speech therapy, or continues to need occupational therapy. The patient is under my care, and I have initiated the establishment of the plan of care. The patient will be followed by a physician who will periodically review the plan of care. Time Spent With Patient Time: Total time managing care of this patient today ____ minutes.
[2023-11-24 13:11] LABS: Anion Gap 17 (12-20)
--- NOTE | 2023-12-03 07:51 | P.OP_ITS ---
Operative Note Operative Note Date of Service: 11/16/23 Narrative: Date of Service: 11/16/23 Pre-op diagnosis: left hand infection Post-op diagnosis: same Procedure: irrigation and debridement left hand Implants: none Surgeon: Oumar Andrade MD Anesthesia: GLMA and local Was an Social Work Faculty Member used for this Procedure?: No Estimated blood loss (mL): 25 IV fluids (mL): 500 Pathology: other Condition: stable Disposition: PACU Patient was brought to the operating room and placed supine on the surgical table. She was prepped and draped in standard sterile fashion and a time out was called to indentify proper site, proper procedure and IV antibiotics per weight were administered. I began by opening up the dorsal incision. He had a fibrotic chronic and severe infection with a abscess formation. I opened up the incision in the 2nd webspace. I used blunt dissection with a Littler scissors between the dorsum of the 2nd and 3rd metacarpal and there was the expression of purulence both volarly dorsally. The extensor tendons appeared intact. I irrigated copiously with 6 L of normal saline and packed this with quarter-inch iodoform. The skin over the dorsum was loosely closed. There was no volar involvement in the palm. Patient was then placed in a padded volar splint and sterile dressing extubated and brought to recovery room in stable condition. There were no known complications.
--- NOTE | 2023-12-31 13:58 | P.OP_ITS ---
Operative Note Operative Note Date of Service: 11/14/23 Narrative: Date of Service: 11/14/23 Pre-op diagnosis: abcess left dorsal hand Post-op diagnosis: same Procedure: incision and drainage left hand abcess, deep Surgeon: Oumar Andrade MD Anesthesia: GLMA and local Was an [employer] Maintenance Worker used for this Procedure?: No Estimated blood loss (mL): 50 IV fluids (mL): 500 Pathology: none sent Condition: stable Disposition: PACU Patient was brought to the operating room and placed supine on the surgical table. She was prepped and draped in standard sterile fashion and a time out was called to indentify proper site, proper procedure and IV antibiotics per weight were administered. I began by opening up the dorsal incision over the 2nd webspace. Dissection was taken down between the 2nd and 3rd metacarpal. There was purulence emanating from the dorsum of both the 2nd and 3rd metacarpal region. The extensor tendons were intact. There was no obvious deep involvement. I used Littler scissors to spread and then a combination of curette and irrigation to debride any necrotic tissue and purulence. I then packed the wound with quarter-inch iodoform and loosely closed the dorsal skin with nylon. Patient was then placed in sterile dressing extubated and brought to recovery room in stable condition. A well-padded volar splint was placed in a position of safety.
== END 2023-11-24 13:45 | disposition home health service (06) | DRG 710 ==
LOC: HO.ED 18:00 → HO.EDOVER 19:05 → HO.IMC 20:27
PROVIDERS: Family Medicine; Internal Medicine; Nurse Practitioner Acute Care; Orthopaedic Surgery; Admitting Provider Student in an Organized Health Care Education/Training Program; Emergency Provider Emergency Medicine; PCP Family Medicine; Visit Provider Internal Medicine
PROC: 0M980ZZ Drainage of Left Hand Bursa and Ligament, Open Approach (ICD-10-PCS; principal; 2023-11-18 10:40)
DX: A41.9 Sepsis, unspecified organism (principal); G92.8 Other toxic encephalopathy; Z86.74 Personal history of sudden cardiac arrest; I50.22 Chronic systolic (congestive) heart failure; E78.2 Mixed hyperlipidemia; L02.512 Cutaneous abscess of left hand; E87.6 Hypokalemia; E11.9 Type 2 diabetes mellitus without complications; I11.0 Hypertensive heart disease with heart failure; I25.10 Atherosclerotic heart disease of native coronary artery without angina pectoris; T40.2X1A Poisoning by other opioids, accidental (unintentional), initial encounter; B95.62 Methicillin resistant Staphylococcus aureus infection as the cause of diseases classified elsewhere; F19.90 Other psychoactive substance use, unspecified, uncomplicated; F17.210 Nicotine dependence, cigarettes, uncomplicated; Z71.6 Tobacco abuse counseling; Z79.82 Long term (current) use of aspirin; Z79.4 Long term (current) use of insulin; Z79.84 Long term (current) use of oral hypoglycemic drugs; Z79.899 Other long term (current) drug therapy
CPT/HCPCS: 36415; 73110; 73130; 80048; 80202; 82565; 82947; 83605; 83690; 83735; 85007; 85025; 85027; 85652; 86140; 86803; 87040; 87070; 87077; 87186; 87205; 87389; 90715; 94640; 97110; 97116; 97162; 97166; 97530; 97535; 99285; J0131; J1170; J1596; J2250; J2270; J2371; J2405; J2543; J2704; J2795; J3010; J3370; J3371; J3480; J7120

== ENCOUNTER → 2023-11-12 18:58 | Outpatient (BNV) | payer MEDICAID, SELFPAY | PROVIDERS: Admitting Provider Student in an Organized Health Care Education/Training Program; Emergency Provider Emergency Medicine; Visit Provider Internal Medicine | DX: L02.512 Cutaneous abscess of left hand (principal); A41.9 Sepsis, unspecified organism; F19.10 Other psychoactive substance abuse, uncomplicated | CPT/HCPCS: 99222 ==

== ENCOUNTER → 2023-11-12 18:58 | Outpatient (BNV) | payer MEDICAID, SELFPAY | PROVIDERS: Admitting Provider Student in an Organized Health Care Education/Training Program; Emergency Provider Emergency Medicine; Visit Provider Orthopaedic Surgery | DX: L02.512 Cutaneous abscess of left hand (principal) | CPT/HCPCS: 10060; 26030; 26340; 99024; 99222; 99232 ==

== ENCOUNTER → 2023-11-12 18:58 | Outpatient (BNV) | payer MEDICAID, SELFPAY | PROVIDERS: Admitting Provider Student in an Organized Health Care Education/Training Program; Emergency Provider Emergency Medicine; Visit Provider Student in an Organized Health Care Education/Training Program | DX: L08.9 Local infection of the skin and subcutaneous tissue, unspecified (principal); L02.512 Cutaneous abscess of left hand | CPT/HCPCS: 99223; 99232; 99239; G0180 ==

== ENCOUNTER 2024-09-18 11:22 | Outpatient (REF) | payer MEDICAID, SELFPAY ==
--- NOTE | ~2024-09-18 | XR_ITS ---
EXAMINATION: XR HAND 3 OR MORE VIEWS LEFT HISTORY: left hand pain, history of I T D. Unable to grab COMPARISON: There are no prior studies available for comparison. FINDINGS: Three views of the left hand are submitted. Osseous mineralization is normal. There is no fracture or dislocation. There is mild narrowing of the DIP joints. There are vascular calcifications. XR/XR hand LT min 3V IMPRESSION: Mild narrowing of the DIP joints. Electronically signed by: Erik Britton MD 09/18/2024 02:32 PM EDT
--- NOTE | ~2024-09-18 | XR_ITS ---
EXAMINATION: XR FOOT, LEFT CLINICAL INFORMATION: biltearl foot pain and swelling COMPARISON: None available. TECHNIQUE: AP, lateral, and oblique views of the left foot. FINDINGS: Patchy osteopenia present. No fracture, dislocation, or suspicious bone lesion. There is normal alignment. There is a normal plantar arch. Mild degenerative changes in the intertarsal joints and tarsometatarsal joints. Minimal arthritis at the first MTP joint. There are moderate-sized dorsal and small plantar calcaneal spurs. There are diffuse vascular calcifications throughout the soft tissues. There is mild diffuse subcutaneous soft tissue edema of the right lower extremity. XR/XR foot LT min 3V IMPRESSION: No acute bony findings of the left foot. Electronically signed by: Yuri Vegas MD 09/18/2024 02:30 PM EDT
--- NOTE | ~2024-09-18 | XR_ITS ---
EXAMINATION: XR FOOT, RIGHT CLINICAL INFORMATION: bilateral foot pain and swelling COMPARISON: None available. TECHNIQUE: AP, lateral, and oblique views of the right foot. FINDINGS: Patchy osteopenia present. No fracture, dislocation, or suspicious bone lesion. There is normal alignment. There is a normal plantar arch. Mild degenerative changes in the intertarsal joints and tarsometatarsal joints. Minimal arthritis at the first MTP joint. There is a moderate-sized dorsal calcaneal spur. There are diffuse vascular calcifications throughout the soft tissues. There is mild diffuse subcutaneous soft tissue edema of the right lower extremity. XR/XR foot RT min 3V IMPRESSION: No acute bony findings of the right foot. Electronically signed by: Yuri Vegas MD 09/18/2024 02:29 PM EDT
--- OUTSIDE RECORDS SUMMARY | 2024-09-18 12:14 | XMS_ITS | Encounter Summary ---
Author Organization [employer] Address [address] [place] [address] Care Team Providers Care Portable Track Crew Chief Name Role Phone Silvia Flores MD Primary Care Provider [phone] Rony Wong PharmD Unavailable [phone] Reason for Visit * Reason Comments Annual Exam PE Encounter Details Date Type Department Care Team ([facility] st Contact Info) Description 09/18/2024 10:30 AM EDT Office Visit [facility] [address], [place] [phone] Silvia Flores MD [address] [place], [place] [phone] Primary hypertension (Primary Dx); Type 2 diabetes mellitus with hyperglycemia, with long-term current use of insulin (CMS/HCC); Type 2 diabetes mellitus with microalbuminuria, with long-term current use of insulin (CMS/HCC); HFrEF (heart failure with reduced ejection fraction) (CMS/HCC); Left hand pain; Chronic pain of both feet; Routine screening for STI (sexually transmitted infection) Social History Tobacco Use Types Packs/Day Years Used Date Smoking Tobacco: Every Day Cigarettes Passive Smoke Exposure: Current Smokeless Tobacco: Never Alcohol Answer Date Recorded Frequency of Alcohol Consumption Not on file 06/10/2023 Average Number of Drinks Not on file 024 Frequency of Binge Drinking Not on file 05/2023 Score 0 06/10/2023 Depression Answer Date Recorded Patient Health Questionnaire-9 Score 14 06/10/2023 Patient Health Questionnaire-9 Score 14 06/10/2023 Last PHQ-9: Questionnaire Data Not on file 0 06/10/2023 Housing Stability Answer Date Recorded What is your housing situation today? I have sera yee 02/16/[address] you li ve. Do you have problems with any of the following? Pests such as bugs, ants, or mice 02/16/2023 Food Insecurity Answer Date Recorded Within the past 12 months, y ou worried that your food would run out before you got money to buy more: Often true 06/30/2023 Within the past 12 months,th e food you bought just didn't last and you didn't have enough money to get more: Often true Transportation Answer Date Recorded In the past 12 months, has l ack of transportation kept you from medical appts, meetings, work or from getting things needed for daily living? No 06/30/2023 Utilities Answer Date Recorded In the past 12 months, has t he electric, gas, oil or water company threatened to shut off services in your home? No 06/30/2023 Depression Answer Date Recorded Patient Health Questionnaire-2 Score 3 06/10/2023 Sex and Gender Information Value Date Recorded Sex Assigned at Male 03/09/2022 10:15 AM EDT Legal Sex Male 10:15 AM EDT Gender Identity Male 03/09/2022 10:15 AM EDT Sexual Orientation Straight 03/09/2022 10 :15 AM EDT documented as of this encounter Last Filed Vital Signs Vital Sign Reading Time Taken Comments Blood Pressure 168/80 09/18/2024 11:20 AM EDT Pulse 86 09/18/2024 10:39 AM EDT Temperature 35.9 ??C (96.7 ??F) 09/18/2024 10:39 AM E DT Respiratory Rate 20 09/18/2024 10:39 AM EDT Oxygen Saturation 98% 09/18/2024 10:39 AM EDT Inhaled Oxygen Concentration - - Weight 98.9 kg (218 lb) 09/18/2024 10:39 AM EDT Height - - Body Mass Index 36.28 05/27/2023 9:19 AM EST documented in this encounter Plan of Treatment Scheduled Orders Name Type Priority Associated Diagnoses Orde r Schedule XR Hand 3+ Views Left Imaging Routine Left hand pain Expected: 09/18/2024, Expires: 09/18/2025 XR Foot 3+ Views Right Imaging Routine Chronic pain of both feet Expected: 09/18/2024, Expires: 09/18/2025 XR Foot 3+ Views Left Imaging Routine Chronic pain of both feet Expected: 09/18/2024, Expires: 09/18/2025 Vitamin B12 (Cobalamin) and Folate Panel, Serum Lab Routine Type 2 diabetes mellitus with microalbuminuria, with long-term current use of insulin ([facility]) Expected: 09/18/2024 (Approximate), Expires: 09/18/2025 Albumin, Random Urine W/Creatinine Lab Routine Type 2 diabetes mellitus with microalbuminuria, with long-term current use of insulin ([facility]) Expected: 09/18/2024 (Approximate), Expires: 09/18/2025 Hemoglobin A1c Lab Routine Type 2 diabetes mellitus with microalbuminuria, with long-term current use of insulin ([facility]) Expected: 09/18/2024 (Approximate), Expires: 09/18/2025 Comprehensive Metabolic Panel Lab Routine Primary hypertension HFrEF (heart failure with reduced ejection fraction) ([facility]) Expected: 09/18/2024 (Approximate), Expires: 09/18/2025 Lipid Panel with Reflex to Direct LDL Lab Routine Type 2 diabetes mellitus with microalbuminuria, with long-term current use of insulin ([facility]) Expected: 09/18/2024 (Approximate), Expires: 09/18/2025 TSH with Reflex to Free T4 Lab Routine Chronic pain of both feet Expected: 09/18/2024 (Approximate), Expires: 09/18/2025 Hepatitis C Antibody with Reflex to HCV, RNA, Quantitative, Real-Time PCR Lab Routine Routine screening for STI (sexually transmitted infection) Expected: 09/18/2024 (Approximate), Expires: 09/18/2025 Hepatitis B Surface Antibody, Qualitative Lab Routine Routine screening for STI (sexually transmitted infection) Expected: 09/18/2024 (Approximate), Expires: 09/18/2025 Hepatitis B Core Antibody, Total Lab Routine Routine screening for STI (sexually transmitted infection) Expected: 09/18/2024 (Approximate), Expires: 09/18/2025 HIV-1/2 Antigen and Antibodies, Fourth Generation, with Reflexes Lab Routine Routine screening for STI (sexually transmitted infection) Expected: 09/18/2024 (Approximate), Expires: 09/18/2025 Hepatitis B surface antigen, EIA Lab Routine Routine screening for STI (sexually transmitted infection) Expected: 09/18/2024 (Approximate), Expires: 09/18/2025 CBC auto differential Lab Routine Chronic pain of both feet Expected: 09/18/2024 (Approximate), Expires: 09/18/2025 C-reactive Protein Lab Routine Chronic pain of both feet Expected: 09/18/2024 (Approximate), Expires: 09/18/2025 Sed Rate by Modified [place] Lab Routine Chronic pain of both feet Expected: 09/18/2024 (Approximate), Expires: 09/18/2025 Uric acid Lab Routine Chronic pain of both feet Expected: 09/18/2024, Expires: 09/18/2025 documented as of this encounter Goals Goal Patient Goal Type Associated Problems Recent Progress Patient-Stated? Author Blood Pressure < 140/90 Blood Pressure 168/80(2024 11:20 AM EDT) No Rony Wong, Olesya Hemoglobin A1c < 7 Result Component 6.3( 10:48 AM EDT) No Rony Wong, Olesya documented as of this encounter Procedures Procedure Name Priority Date/Time Associated Diagnosis Comments POCT GLUCOSE Routine 09/18/2024 10:49 AM EDT Type 2 diabetes mellitus with hyperglycemia, with long-term current use of insulin ([facility]) POCT GLYCOSYLATED HEMOGLOBIN (HGB A1C) Routine 09/18/2024 10:48 AM EDT Type 2 diabetes mellitus with hyperglycemia, with long-term current use of insulin ([facility]) documented in this encounter Results * POCT glucose manually resulted (09/18/2024 10:49 AM EDT) Glucose Blood, POC 143 60 - 200 mg/dL QC Media Lot # [id number] Lot# Expiration Date Blood Capillary blood specimen / Unknown 09/18/2024 10:49 AM EDT Silvia Flores MD POINT OF CARE TEST ENTER/EDIT OR DERABLES Final Result * (ABNORMAL) POCT glycosylated hemoglobin (Hgb A1c) (09/18/2024 10:48 AM EDT) Hemoglobin A1C 6.3(A) 4.0 - 6.0 % QC Media Lot # [id number] Lot# Expiration Date Blood Capillary blood specimen / Unknown 09/18/2024 10:48 AM EDT Silvia Flores MD POINT OF CARE TEST ENTER/EDIT OR DERABLES Final Result documented in this encounter Visit Diagnoses Diagnosis Primary hypertension- Primary Unspecified essential hypertension Type 2 diabetes mellitus with hyperglycemia, with long-term current use of insulin ([facility]) Type 2 diabetes mellitus with microalbuminuria, with long-term current use of insulin ([facility]) HFrEF (heart failure with reduced ejection fraction) (CMS/HCC) Left hand pain Pain in soft tissues of limb Chronic pain of both feet Routine screening for STI (sexually transmitted infection) Screening examination for venereal disease documented in this encounter Additional Health Concerns Assessment Noted Time PHQ-9 Depression Total Score: 14 024 12:07 PM EST documented as of this encounter Care Teams Portable Track Crew Chief Relationship Specialty Start Date End Date Silvia Flores MD [address] [place] [address] PCP - General Family Medicine 12/31/21 Rony Wong, Olesya [address] [place] [address] Pharmacist Internal Medicine 06/10/23 [facility] 12/16/22 documented as of this encounter
--- OUTSIDE RECORDS SUMMARY | 2024-09-18 12:14 | XMS_ITS | Encounter Summary ---
Author Organization [employer] Address [address] [place] [address] Care Team Providers Care Condominium Manager Name Role Phone Silvia Flores MD Primary Care Provider [phone] Rony Wong PharmD Unavailable [phone] Reason for Visit * Reason Onset Date Comments FYI 11/02/2022 Encounter Details Date Type Department Care Team ([facility] st Contact Info) Description 11/02/2022 Telephone [facility] [address] [place], [place] [phone] Silvia Flores MD [address], [place] [phone] FYI Social History Tobacco Use Types Packs/Day Years Used Date Smoking Tobacco: Every Day Cigarettes Passive Smoke Exposure: Current Smokeless Tobacco: Never Sex and Gender Information Value Date Recorded Sex Assigned at Male 03/09/2022 10:15 AM EDT Legal Sex Male 10:15 AM EDT Gender Identity Male 03/09/2022 10:15 AM EDT Sexual Orientation Straight 03/09/2022 10 :15 AM EDT documented as of this encounter Miscellaneous Notes * Telephone Encounter - Silvia Flores MD - 11/03/2022 10:27 AM EDT Reviewed. Appreciate their care * Telephone Encounter - Cleo Coyne - 11/02/2022 1:11 PM EDT [facility] calling to inform they will be starting pt's PT and OT services for 2x a day for60 days . documented in this encounter Plan of Treatment Not on file documented as of this encounter Visit Diagnoses Not on filedocumented in this encounter Additional Health Concerns Assessment Noted Time PHQ-9 Depression Total Score: 0 08/26/19 23 10:59 AM EDT documented as of this encounter Care Teams Condominium Manager Relationship Specialty Start Date End Date Silvia Flores MD [address] [place] [address] PCP - General Family Medicine 12/31/21 Rony Wong, Olesya [address] [place] [address] Pharmacist Internal Medicine 06/10/23 [facility]Note 2] 12/16/22 documented as of this encounter
--- OUTSIDE RECORDS SUMMARY | 2024-09-18 12:14 | XMS_ITS | Encounter Summary ---
Author Organization [employer] Address [address] [place] [address] Care Team Providers Care Chief Nursing Officer Name Role Phone Silvia Flores MD Primary Care Provider [phone] Rony Wong PharmD Unavailable [phone] Encounter Details Date Type Department Care Team ([facility] st Contact Info) Description 06/04/2023 Orders Only [facility] [address] [place], [place] [id number] Lucero Scott RN Social History Tobacco Use Types Packs/Day Years Used Date Smoking Tobacco: Every Day Cigarettes Passive Smoke Exposure: Current Smokeless Tobacco: Never Depression Answer Date Recorded Patient Health Questionnaire-9 Score 23 04/27/2023 Patient Health Questionnaire-9 Score 23 04/27/2023 Last PHQ-9: Questionnaire Data Not on file 1 06/28/2022 Housing Stability Answer Date Recorded What is your housing situation today? I have seramichael yee 02/16/[address] you li ve. Do you have problems with any of the following? Pests such as bugs, ants, or mice 02/16/2023 Food Insecurity Answer Date Recorded Within the past 12 months, y ou worried that your food would run out before you got money to buy more: Sometimes True 2022 Within the past 12 months,th e food you bought just didn't last and you didn't have enough money to get more: Sometimes True 03/03/2023 Transportation Answer Date Recorded In the past 12 months, has l ack of transportation kept you from medical appts, meetings, work or from getting things needed for daily living? Yes, it has kept me from medical appointments or getting medications. 02/16/2023 Utilities Answer Date Recorded In the past 12 months, has t he electric, gas, oil or water company threatened to shut off services in your home? I am not sure 03/03/2023 Depression Answer Date Recorded Patient Health Questionnaire-2 Score 6 04/27/2023 Sex and Gender Information Value Date Recorded Sex Assigned at Male 03/09/2022 10:15 AM EDT Legal Sex Male 10:15 AM EDT Gender Identity Male 03/09/2022 10:15 AM EDT Sexual Orientation Straight 03/09/2022 10 :15 AM EDT documented as of this encounter Plan of Treatment Not on file documented as of this encounter Visit Diagnoses Not on filedocumented in this encounter Additional Health Concerns Assessment Noted Time PHQ-9 Depression Total Score: 23 023 11:44 AM EST documented as of this encounter Care Teams Chief Nursing Officer Relationship Specialty Start Date End Date Silvia Flores MD [address] [place] [address] PCP - General Family Medicine 12/31/21 Rony Wong, LorrieD [address] [place] [address] Pharmacist Internal Medicine 06/10/23 [facility] 12/16/22 documented as of this encounter
--- OUTSIDE RECORDS SUMMARY | 2024-09-18 12:14 | XMS_ITS | Clinical Summary ---
Author Organization [employer] Address [address] [facility] [address] [place] [address] Care Team Providers Care Flat Spring Assembler Name Role Phone Silvia Flores MD Primary Care Provider [phone] Rony Wong PharmD Unavailable [phone] Allergies Active Allergy Reactions Criticality Noted Date Comments Penicillin V 05/23/2010 Other reaction(s): rash Medications * This document contains information received from the source organization and may not represent a complete record from that organization. dulaglutide (Trulicity) 3 MG/0.5ML solution pen-injector Inject 3 mg under the skin 1 (one) time per week. 4 each 11 023 Active Blood Glucose Monitoring Suppl (FreeStyle Lite) w/Device kitIndications: Type 2 diabetes mellitus with hyperglycemia, with long-term current use of insulin ([facility]) 1 Device 3 times daily. Check blood sugar three times daily before meals 1 kit 023 Active docusate sodium (Colace) 100 MG capsule TAKE 1 TO 2 CAPSULES BY MOUTH AT BEDTIME NEEDED FOR CONSTIPATION 180 capsule 3 023 Active hydrOXYzine HCl (Atarax) 50 MG tablet Take 1 tablet by mouth 2 times daily. Active ibuprofen 600 MG tablet Take 1 tablet by mouth if needed in the morning and at bedtime. Active Alcohol Swabs (Alcohol Prep) padsIndications :Type 2 diabetes mellitus with hyperglycemia, with long-term current use of insulin (CMS/HCC) Check blood sugar three times daily, before meals 100 each 11 024 Active FreeStyle lancetsIndicati ons:Type 2 diabetes mellitus with hyperglycemia, with long-term current use of insulin (CMS/HCC) 1 each by Other route 3 times daily. Check blood sugar three times daily before meals 100 each 12 Active gabapentin (Neurontin) 300 MG capsule Take 1 capsule (300 mg) by mouth 3 times daily. 90 capsule 3 Active glucose 4 g chewable tabletIndicatio ns:Type 2 diabetes mellitus with hyperglycemia, with long-term current use of insulin ([facility]) Chew 4 tablets by mouth as needed for hypoglycemia (BG <70 mg/dL) 30 tablet 11 Active sennosides (Senokot) 8.6 MG tablet Take 1-2 tablets by mouth at bedtime as needed. Active polyethylene glycol, PEG, 3350 (Miralax) 17 g packet Mix 17 grams in water and drink daily as needed Active Jardiance 10 MG TAKE 1 TABLET BY MOUTH EVERY MORNING (for diabetes) 90 tablet 3 Active bisacodyl (Dulcolax) 10 MG suppository UNWRAP AND INSERT 1 SUPPOSITORY RECTALLY EVERY DAY NEEDED FOR CONSTIPATION 024 Active atorvastatin (Lipitor) 80 MG tablet TAKE 1 TABLET BY MOUTH AT BEDTIME 90 tablet 024 Active losartan (Cozaar) 50 MG tablet TAKE 1 TABLET BY MOUTH EVERY MORNING 90 tablet 3 Active aspirin (Aspirin EC Adult Low Dose) 81 MG EC tablet TAKE 1 TABLET BY MOUTH EVERY MORNING 90 tablet 1 025 Active insulin aspart FlexPen (NovoLOG) 100 UNIT/ML pen INJECT 5 UNITS SUBCUTANEOUSLY THREE TIMES DAILY WITH EACH MEAL PLUS SLIDING SCALE 151-200=2 UNITS, 201-250=4 UNITS, 251-300=6 UNITS, 301-350=8 UNITS, >350 10 UNITS AND CALL PCP. 4.5 mL Active glucose blood (FREESTYLE LITE) test stripIndication s:Type 2 diabetes mellitus with hyperglycemia, with long-term current use of insulin ([facility]) USE TO TEST BLOOD SUGAR THREE TIMES A DAY 100 each Active insulin pen needle (UltiCare Short Pen [place]) 31G X 8 mm miscIndications :Type 2 diabetes mellitus with hyperglycemia, with long-term current use of insulin ([facility]) USE WITH INSULIN FIVE TIMES DAILY DIRECTED 150 each Active tamsulosin (Flomax) 0.4 MG 24 hr capsule TAKE 1 CAPSULE BY MOUTH DAILY 30 MINUTES AFTER THE SAME MEAL EVERY DAY 90 capsule 3 Active metFORMIN XR (Glucophage-XR) 500 MG 24 hr tablet Do not crush, chew, or split.TAKE 1 TABLET BY MOUTH TWICE DAILY DO NOT BREAK, CRUSH, DISSOLVE OR CHEW 180 tablet Active Lantus SoloStar 100 UNIT/ML penIndications: Type 2 diabetes mellitus with hyperglycemia, with long-term current use of insulin ([facility]) Administer 30 units twice daily 18 mL 11 Active spironolactone (Aldactone) 25 MG tabletIndicatio ns:Primary hypertension Take 1 tablet (25 mg) by mouth Once per day. 90 tablet 3 Active Lantus SoloStar 100 UNIT/ML penIndications: Type 2 diabetes mellitus with hyperglycemia, with long-term current use of insulin ([facility]) Administer 30 units twice daily 18 mL 024 2024 Discontinued(R eorder (will not trigger notification to Pharmacy)) spironolactone (Aldactone) 25 MG tabletIndicatio ns:Primary hypertension Take 1 tablet (25 mg) by mouth in the morning. 90 tablet 3 024 2024 Discontinued(R eorder (will not trigger notification to Pharmacy)) Active Problems Problem Noted Date Diagnosed Date Abscess of left hand 11/26/2023 Assessment & Plan (11/26/2023 3:27 PM EDT): He underwent surgery and was discharge on 11/24/23. No evidence of current infection, advised to keep hand elevated. Finish antibiotics. We called to Orthopaedics and made an appointment for Wednesday. ER precautions discussed. Sleep disturbance 05/28/2023 Assessment & Plan (07/25/2023 6:48 PM EDT): - evaluate with sleep study Assessment & Plan (05/28/2023 6:36 AM EST): - multifactorial - optimize Tx for mood disorder - minimize stimulant and nicotine use, especially before bedtime - consider sleep study Mood disorder 05/28/2023 Assessment & Plan (05/28/2023 7:07 AM EST): - continue therapy with Yung Damon - Dx: MDD; ?PTSD; ?YARELY Stimulant use disorder 04/27/2023 Assessment & Plan (05/28/2023 7:05 AM EST): - discontinued carvedilol - patient continues to use stimulant - continue working on harm reduction Moderate anxiety 01/21/2023 Assessment & Plan (01/21/2023 3:10 PM EDT): Assessment: Patient with passive SI without plan or intention, crying spells, insomnia, loneliness, irritability, shame, guilt, anxiousness, worthlessness, diminished ability to concentrate, persistent worry, diminished ability to relax, irritability, and fearfulness. Factors contributing to his symptoms are, loneliness, substance abuse, lack of social support and Hx of trauma. Patient will benefit from Ind. Therapy and Medication Management. At this time David Russ meets criteria for Visit Diagnoses: Problem List Items Addressed This Visit Other Current severe episode of major depressive disorder without psychotic features without prior episode ([facility]) Opioid use disorder Moderate anxiety Patient ready to address current needs Yes Strengths include willing to seek treatment PLAN: 1. Follow up with [facility]: Recommended for follow-up: during obat appts 2. Patient goal is to become sober and improve mental health 3. Behavioral Recommendations a. Ind. Therapy, referral will be submitted. b. Medication Management, referral will be submitted c. Keeping Obat appts d. [facility] contact number for support. Type 2 diabetes mellitus wit h microalbuminuria, with long-term current use of insulin 10/05/2022 Hypokalemia 10/05/2022 Assessment & Plan (05/28/2023 7:09 AM EST): - on KCl 20 mEq daily - furosemide was previously discontinued and changed to spironolactone - discontinue KCl and furosemide - restart MRA - check K Urinary incontinence 09/08/2022 Assessment & Plan (07/25/2023 6:51 PM EDT): - continue tamsulosin 0.4 mg daily - 04/29/21 PSA 0.16 - written script for pull-ups / briefs - will write a script for urinal Assessment & Plan (05/28/2023 6:54 AM EST): - continue tamsulosin 0.4 mg daily - 04/29/21 PSA 0.16 - written script for pull-ups / briefs - consider referral to urologist Assessment & Plan (12/31/2022 6:42 AM EDT): - consider referral to urologist - check PSA - write script for pull-ups / briefs - consider restarting tamsulosin Assessment & Plan (09/08/2022 6:22 AM EDT): - consider referral to urologist - check PSA - write script for pull-ups / briefs HFrEF (heart failure with reduced ejection fract ion) 08/25/2022 Assessment & Plan (07/25/2023 6:48 PM EDT): - Following [facility] Rubber Stamp Die Inspector, last seen 10/13/21 - Cardiac cath on 11/04/22, R-dominant circulation, mild LAD, moderate OM1 and RCA disase - TTE 11/04/22 EF 25-30%, recommended outpatient cardiac MRI - continue current medication - previously on carvedilol which was discontinued because of stimulant use disorder - scheduled a follow-up with [facility] Cardiology in August 2023; emphasized the importance of keeping appt Assessment & Plan (05/28/2023 6:47 AM EST): - Following [facility] Rubber Stamp Die Inspector, last seen 10/13/21 - Cardiac cath on 11/04/22, R-dominant circulation, mild LAD, moderate OM1 and RCA disase - TTE 11/04/22 EF 25-30%, recommended outpatient cardiac MRI - continue current medication - previously on carvedilol which was discontinued because of stimulant use disorder - schedule a follow-up with [facility] Cardiology Assessment & Plan (12/31/2022 6:33 AM EDT): - Following [facility] Rubber Stamp Die Inspector, last seen 10/13/21 - Cardiac cath on 11/04/22, R-dominant circulation, mild LAD, moderate OM1 and RCA disase - TTE 11/04/22 EF 25-30%, recommended outpatient cardiac MRI - continue current medication - consider SGLT-2 for DM - schedule a follow-up with [facility] Cardiology Assessment & Plan (09/08/2022 6:16 AM EDT): - Following [facility] Rubber Stamp Die Inspector, last seen 10/13/21 - Pt was scheduled for Cardiac Cath, but missed dt transportation issues; will request rescheduling after he has reliable transportation - He has business case analyst from [facility], advised to reschedule appt with his Specialist appointments Opioid use disorder 08/05/2022 Assessment & Plan (05/28/2023 7:07 AM EST): - survived overdose multiple times, most recently in Jan 2023 - previously tried methadone, naltrexone, and buprenoprhine - currently on Sublocade, since 05/14/23 - continue current recovery effort - discussed about harm reduction Assessment & Plan (12/31/2022 6:47 AM EDT): - survived overdose in October 2022 - previously tried methadone and buprenoprhine - currently taking naltrexone - continue current recovery effort - discussed about harm reduction Assessment & Plan (08/25/2022 11:10 AM EDT): -Action stage of recovery from opioid use disorder -Not using cocaine or any other illicit drugs -Discussed about harm reduction and overdose prevention -Discussed about recovery support Assessment & Plan (08/05/2022 3:35 PM EDT): -Action stage of recovery from opioid use disorder -Still using cocaine -Discussed about harm reduction and overdose prevention -Discussed about recovery support Wheelchair dependence 08/05/2022 Assessment & Plan (07/25/2023 6:56 PM EDT): - referred to physical therapy to evaluate for motorized wheelchair or scooter Assessment & Plan (05/28/2023 7:02 AM EST): - referred to physical therapy to evaluate for motorized wheelchair or scooter Assessment & Plan (09/08/2022 6:19 AM EDT): - referred to physical therapy to evaluate for motorized wheelchair or scooter Assessment & Plan (08/05/2022 3:37 PM EDT): - refer to physical therapy to evaluate for motorized wheelchair or scooter Knee pain 07/18/2012 Vitamin D deficiency 05/31/2012 Cardiomyopathy 05/20/2012 Assessment & Plan (05/28/2023 6:47 AM EST): Refer to I50.22 Assessment & Plan (12/31/2022 6:33 AM EDT): Refer to I50.22 Assessment & Plan (08/25/2022 11:11 AM EDT): Refer to I50.22 Moderate episode of recurrent major depressive d isorder 05/20/2012 Assessment & Plan (05/28/2023 7:11 AM EST): - continue therapy with Aisl[facility] - consider referral to psychopharmacology consult with [facility] for both Dx and Rx recommendation - need to be cautious with his cardiac medications and some of antipsychotics with metabolic derangement Assessment & Plan (04/27/2023 1:22 PM EST): PROGRESS NOTE: ID: David is a 57 y.o. Decline to answer straight-identified cis- male (pronouns ) with previous documented hx of Depression, Anxiety, Substance Use Disorder, and Opioid Use Disorder MH services including OP Psychotherapy who presents for Addiction Problem, Depression, and Anxiety. He lives alone and has been in active addiction for few years now after an episode of been sober for years. Currently lives alone. During IBH Consult David presenting with depressed mood, loss of interests/pleasure , changes in sleep difficulty falling asleep, difficulty staying asleep , and restless, unsatisfying sleep, change in appetite or weight reduce appetite and unintentional weight loss , psychomotor retardation, trouble concentrating, thoughts of worthlessness or guilt, thoughts about or suicide, fatigue/loss of energy, passive suicidal ideation w/o plan, excessive worry/anxiety, difficulty controlling worry, restless/keyed up/On edge, easily fatigued, difficulty concentrating/Mind going blank , irritability, and sleep disturbance difficulty falling asleep, difficulty staying asleep , and restless, unsatisfying sleep, and using in larger amounts or for longer than intended, unsuccessful attempt/s to cut down/stop use, cravings and urges to use, recurrent use resulting in failure to fulfill major obligations at work/home/school , continued use, even when it causes interpersonal problems, giving up/reducing important social, occupational, or recreational activities because of use, continued use even when hazardous or dangerous , continued use despite physical or psychological problem (potentially related or made worse by use) , tolerance , withdrawal sxs ; for a period of 18+ mo, for all symptoms in the context of housing been a mayor trigger due to his apartment location, people leave drugs on his door, lack of formal and informal support . David reported he feels abandoned by his family, and feels lonely at home, at times he wishes he go to sleep and not waking up, but denies SI/HI and self-harm at this time. We discussed programs he agreed to referral to Detox, KADE sent uber for him to go to [facility] in [place]. PLAN: New/Additional Services needed: Off-site services for Behavioral Health Integration Plan: External OP therapy referral and OP psychiatry Referral Patient Self Plan: Patient to reach out to [facility] team as needed and Patient to complete Detox Program, Patient to reach out to this show card writer after Detox and Ptn to reconnect with . Chronic headache disorder 05/20/2012 Type 2 diabetes mellitus 05/20/2012 Assessment & Plan (07/25/2023 6:54 PM EDT): - A1C 6.5% today, improved from 8.8% on 12/22/22 (although concern for hypoglycemia due to medication list discrepancy) - Continue working on lifestyle modifications - Continue metformin ER 500 mg bid - Continue empagliflozin 10 mg daily - Continue Lantus 30 units daily - Continue dulaglutide 3.0 mg weekly (back order) - Treatment Hx: Previously on glyburide. Discontinue - Microalbumin/Cr: 05/28/23 UACR 29, borderline - Lipids: 05/28/23 - Eye exam: due - Foot exam/peripheral pulses: decreased sensation without ulceration on 08/25/22 Assessment & Plan (05/28/2023 7:00 AM EST): - A1C 6.5% today, improved from 8.8% on 12/22/22 (although concern for hypoglycemia due to medication list discrepancy) - Continue working on lifestyle modifications - Continue metformin ER 500 mg bid - Continue empagliflozin 10 mg daily - Continue Lantus 30 units daily - Continue dulaglutide 3.0 mg weekly (back order) - Treatment Hx: Previously on glyburide. Discontinue - Microalbumin/Cr: 12/22/22 56.7, repeat today - Lipids: 11/04/22 TC 182; TG 68; HDL 58; LDL 113 - Eye exam: due - Foot exam/peripheral pulses: decreased sensation without ulceration on 08/25/22 Assessment & Plan (12/31/2022 6:50 AM EDT): A1C 8.8% on 12/22/22, improving 10.9% on 08/25/22, Continue lifestyle modifications Will not intensify medications yet as we have a limited data on his BG Will clarify current insulin dosages with his visiting nurse Continue metformin ER 500 mg bid Continue Trulicity 3.0 mg weekly Microalbumin/Cr:Alb: last 15 on 04/29/21 Lipids: 11/04/22 TC 182; TG 68; HDL 58; LDL 113 Eye exam: due Foot exam/peripheral pulses: decreased sensation without ulceration on 08/25/22 Assessment & Plan (08/25/2022 11:22 AM EDT): A1c: (Target </= 7.0) 10.9% on 08/25/22, increased from 10.4% on 01/21/22 Continue lifestyle modifications Restart medication? Encouraged to check BG at home Microalbumin/Cr:Alb: last 15 on 04/29/21 Lipids: Total cholesterol 268, HDL 42, LDL 175, TG 287 on 04/29/21 Eye exam: due Dental: due PNA (PPSV, then PCV 13): due for PPSV TDap/Td: up to date Foot exam/peripheral pulses: decreased sensation without ulceration on 08/25/22 ROSA MARIA/ARB: yes Statin: yes Diabetic retinopathy 05/20/2012 Hyperlipidemia 05/20/2012 Assessment & Plan (07/25/2023 6:55 PM EDT): - Last Lipid Profile 05/28/23 - Continue atorvastatin 80 mg qhs - cont working on lifestyle modifications Assessment & Plan (05/27/2023 5:15 AM EST): - Last Lipid Profile 11/04/22 TC 182; TG 68; HDL 58; LDL 113 - Continue Lipitor 80 mg qhs - cont working on lifestyle modifications Assessment & Plan (12/31/2022 6:50 AM EDT): - Last Lipid Profile 11/04/22 TC 182; TG 68; HDL 58; LDL 113 - Continue Lipitor 80 mg qhs - cont working on lifestyle modifications Assessment & Plan (08/25/2022 11:35 AM EDT): Last Lipid Profile 04/2021: TC 268; TG 287; HDL 42; LDL 175 - Continue Lipitor 40 mg qhs - cont working on lifestyle modifications Hypertension 05/20/2012 Assessment & Plan (07/25/2023 6:50 PM EDT): - Goal BP <140/90 per JNC-8, < 130/80 per ACC/AHA - BP within acceptable range - Co-managed with step finisher and pharmacist - Continue working on lifestyle modifications - Encouraged to check BP at home and log the readings; Pt has visiting nurse currently - Continue losartan 50 mg daily - Continue spironolactone 25 mg daily - Treatment Hx: Chlorthalidone, furosemide, and lisinpril until August 2022, with questionable adherence. Discontinued during the hospitalization in October 2022, but patient resumed for unclear reason. Carvedilol was discontinued in Jan 2023 due to persistent stimulant use. - follow up in 3 months or sooner prn Assessment & Plan (05/28/2023 6:46 AM EST): - Goal BP <140/90 per JNC-8, < 130/80 per ACC/AHA - Not at goal today, medication list discrepancy - Continue working on lifestyle modifications - Encouraged to check BP at home and log the readings; Pt has visiting nurse currently - Resume losartan 50 mg daily - Resume spironolactone 25 mg daily - Discontinue lisinopril 20 mg daily - Discontinue chlorthalidone 25 mg daily - Discontinue furosemide 20 mg daily - Treatment Hx: Chlorthalidone, furosemide, and lisinpril until August 2022, with questionable adherence. Discontinued during the hospitalization in October 2022, but patient resumed for unclear reason. Carvedilol was discontinued in Jan 2023 due to persistent stimulant use. - referred to our pharmacist for CDTM; will refer again as he probably was unable to be reached because patient does not have a phone - follow up in 1 month Assessment & Plan (12/31/2022 6:30 AM EDT): - Goal BP <140/90 per JNC-8, < 130/80 per ACC/AHA - Continue working on lifestyle modifications - encouraged to check BP at home and log the readings; Pt has visiting nurse currently - Continue carvedilol 12.5 mg bid - Cont spironolactone 25 mg daily - Cont losartan 50 mg daily - Treatment Hx: Chlorthalidone, furosemide, and lisinpril until August 2022, with questionable adherence - referred to our pharmacist for CDTM; will refer again as he probably was unable to be reached during the hospitalization Assessment & Plan (09/08/2022 6:32 AM EDT): - Goal BP <140/90 per JNC-8, < 130/80 per ACC/AHA -Cont working on lifestyle modifications -encouraged to check BP at home and log the readings -Cont Chlorthalidone 25 mg daily -Cont Furosemide 20 mg daily -Cont Lisonopril 20mg daily - caution for hypotension since he has not been taking medications - close follow-up - refer to CDTM Obesity 05/20/2012 Assessment & Plan (05/28/2023 7:01 AM EST): - work on lifestyle modifications Tobacco dependence 05/20/2012 Assessment & Plan (07/25/2023 6:56 PM EDT): - continue smoking cessation effort - check the status of appointment for lung cancer screening program Assessment & Plan (05/28/2023 7:04 AM EST): - continue smoking cessation effort - lung cancer screening Assessment & Plan (12/31/2022 6:46 AM EDT): - continue smoking cessation effort Assessment & Plan (09/08/2022 6:19 AM EDT): - continue smoking cessation effort Resolved Problems Problem Noted Date Diagnosed Date Resolved Date Hepatitis B carrier 05/20/2012 05/28/19 24 Encounters Date Type Department Care Team Description 09/18/2024 10:30 AM EDT Office Visit [address] [address] Silvia Flores MD Primary hypertension (Primary Dx); Type 2 diabetes mellitus with hyperglycemia, with long-term current use of insulin ([facility]); Type 2 diabetes mellitus with microalbuminuria, with long-term current use of insulin (CMS/HCC); HFrEF (heart failure with reduced ejection fraction) (CMS/HCC); Left hand pain; Chronic pain of both feet; Routine screening for STI (sexually transmitted infection) 09/18/2024 Travel 09/15/2024 Telephone [facility] [address] [place] [phone] Silvia Flores MD CHART PREP 09/12/2024 Patient Outreach [address] [address] Silvia Flores MD Pre-visit Planning (Pre visit planning LVM ) 09/08/2024 Refill [facility] [address] [place] [address] Silvia Flores MD Type 2 diabetes mellitus with hyperglycemia, with long-term current use of insulin (CMS/HCC); Primary hypertension 08/31/2024 Telephone [facility] [address] [place] [address] Silvia Flores MD 08/09/2024 Refill [facility] [address] [place] [address] Silvia Flores MD 07/26/2024 Telephone [facility] [address] [place] [address] Silvia Flores MD novolog 07/21/2024 Population Health Risk Score [facility] [address] [place] [id number] Provider, Population Health Generic 07/05/2024 Refill [facility] [address] [place] [address] Silvia Flores MD Type 2 diabetes mellitus with hyperglycemia, with long-term current use of insulin ([facility]) 07/03/2024 Refill [facility] [address] [place] [address] Silvia Flores MD from Last 3 Months Immunizations Name Administration Dates Next Due Hep A, Adult 05/31/2008,01/12/2003 Influenza injectable quadriv alent IIV4 with preservative 01/24/2018 Influenza injectable quadriv alent preservative free 05/27/2023,01/21/2022,07/14/2021 Moderna Covid-19 Vaccine 6+ Bivalent 05/29/2022 Pfizer Covid-19 Vaccine 12+ 05/27/2023 Pneumococcal Conjugate PCV 20 05/27/2023 Pneumococcal Polysaccharide PPSV23 06/18/2008, TD (adult), 2 Lf tetanus tox oid, preservative free, adsorbed 06/18/2008 Tdap 11/12/2023,07/14/2021 Zoster, Recombinant 06/10/2023 Social History Tobacco Use Types Packs/Day Years Used Date Smoking Tobacco: Every Day Cigarettes Passive Smoke Exposure: Current Smokeless Tobacco: Never Tobacco Cessation:Ready to Q uit: Not Asked; Counseling Given: Not Answered Alcohol Answer Date Recorded Frequency of Alcohol [...] is your housing situation today? I have sear yee 02/16/[address] you [...] Orientation Straight 03/09/2022 10 :15 AM EDT Last Filed Vital Signs Vital Sign Reading Time Taken Comments Blood Pressure 168/80 09/18/2024 11:20 AM EDT Pulse 86 09/18/2024 10:39 AM EDT Temperature 35.9 ??C (96.7 ??F) 09/18/2024 10:39 AM E DT Respiratory Rate 20 09/18/2024 10:39 AM EDT Oxygen Saturation 98% 09/18/2024 10:39 AM EDT Inhaled Oxygen Concentration - - Weight 98.9 kg (218 lb) 09/18/2024 10:39 AM EDT Height 165.1 cm (5' 5 ) 05/27/2023 9:19 AM EST Body Mass Index 36.28 05/27/2023 9:19 AM EST Plan of Treatment Health Maintenance Due Date Last Done Comments CT Colonography 1965 Colonoscopy 1965 Colorectal Cancer Screening 1965 FIT DNA/Cologuard 1965 FIT 1965 FOBT 1965 Sigmoidoscopy 1965 Eye Exam 09/24/1975 Zoster Vaccines (2 of 2) 08/05/2023 06/10/2023 Diabetes: Foot Exam 12/23/2023 12/22/2022, 12/22/2022, 12/22/2022, Additional history exists COVID-19 Vaccine ( season) 2024 05/27/2023, 05/29/2022, 08/27/2021, Additional history exists Influenza Vaccine (#1) 2024 , 01/21/2022, 07/14/2021, Additional history exists Diabetes: Urine Protein Screening 05/27/2024 05/27/2023, 12/22/2022, 08/25/2022, Additional history exists Lipid Panel 05/27/2024 05/27/2023, 12/08, 08/25/2022, Additional history exists Depression Screening 06/10/2024 06/10/2023, 06/10/19 24 SDOH Screening 06/30/2024 06/30/2023 Tobacco Screening 11/25/2024 11/26/2023 Diabetes: Hemoglobin A1C 03/21/2025 025, 05/27/2023, 12/22/2022, Additional history exists Alcohol/Substance Use Screening 09/18/2025 09/18/2024 DTaP/Tdap/Td Vaccines (3 - Td or Tdap) 11/11/2033 11/12/2023, 07/14/2021, 06/18/2008 RSV Patients and Patients Aged 60 years or older (1 - 1-dose 75+ series) 2040 Hepatitis A Vaccines Aged Out 05/31/2008, 01/13/20 03 No longer eligible based on patient's age to complete this topic HIV Screening Completed 12/22/2022, 08/08, 03/14/2021 Hepatitis C Screening Completed 12/22/2022 , 08/25/2022, 03/14/2021 Pneumococcal Vaccine: 50+ Years Completed 05/27/2023, 06/18/2008, 01/12/2003 HIB Vaccines Aged Out No longer eligi ble based on patient's age to complete this topic HPV Vaccines Aged Out No longer eligi ble based on patient's age to complete this topic Hepatitis B Vaccines Discontinued IPV Vaccines Aged Out No longer eligi ble based on patient's age to complete this topic Meningococcal Vaccine Aged Out No lissette walker eligible based on patient's age to complete this topic RSV under 20 months Aged Out No longe r eligible based on patient's age to complete this topic Rotavirus Vaccines Aged Out No longer eligible based on patient's age to complete this topic Goals Goal Patient Goal Type Associated Problems Recent Progress Patient-Stated? Author Blood Pressure < 140/90 Blood Pressure 168/80(2024 11:20 AM EDT) No Rony Wong PharmD Hemoglobin A1c < 7 Result Component 6.3( 10:48 AM EDT) No Rony Wong PharmD Procedures Procedure Name Priority Date/Time Associated Diagnosis Comments POCT GLUCOSE Routine 09/18/2024 10:49 AM EDT Type 2 diabetes mellitus with hyperglycemia, with long-term current use of insulin ([facility]) POCT GLYCOSYLATED HEMOGLOBIN (HGB A1C) Routine 09/18/2024 10:48 AM EDT Type 2 diabetes mellitus with hyperglycemia, with long-term current use of insulin ([facility]) ALBUMIN, RANDOM URINE W/CREATININE Routine 05/27/2023 11:55 AM EST Type 2 diabetes mellitus with hyperglycemia, with long-term current use of insulin ([facility]) LIPID PANEL WITH REFLEX TO DIRECT LDL Routine 05/27/2023 10:16 AM EST Type 2 diabetes mellitus with hyperglycemia, with long-term current use of insulin ([facility]) HEPATITIS C ANTIBODY REFLEX Routine 12/22/2022 10:24 AM EDT HIV ANTIBODY/ANTIGEN ([facility]) Routine 12/22/2022 10:24 AM EDT from Last 3 Months or Most Recently Relevant to Health Maintenance Results * POCT glucose manually resulted (09/18/2024 10:49 AM EDT) Glucose Blood, POC 143 60 - 200 mg/dL QC Media Lot # [id number] Lot# Expiration Date Blood Capillary blood specimen / Unknown 09/18/2024 10:49 AM EDT us Silvia Flores MD POINT OF CARE TEST ENTER/EDIT OR DERABLES Final Result * (ABNORMAL) POCT glycosylated hemoglobin (Hgb A1c) (09/18/2024 10:48 AM EDT) Hemoglobin A1C 6.3(A) 4.0 - 6.0 % QC Media Lot # [id number] Lot# Expiration Date , Blood Capillary blood specimen / Unknown 09/18/2024 10:48 AM EDT us Silvia Flores MD POINT OF CARE TEST ENTER/EDIT OR DERABLES Final Result * Albumin, Random Urine W/Creatinine (05/27/2023 11:55 AM EST) Creatinine, Urine 72.28 mg/dL [facility] Microalbumin Urine 21.0 mg/L [facility] Microalbum Creatinine Ratio Ur 29.0 <30 ug/mg cr [facility] Comment:Albumin/Creatinine R atio Reference Ranges: Normal: < 30 ug/mg creatinine Microalbuminuria: 30 - 300 ug/mg creatinineClinical Albuminuria: > 300 ug/mg creatinine Urine 05/27/2023 11:5 5 AM EST 05/27/2023 4:05 PM EST us Silvia Flores MD LAB URINE ORDERABLES Final Resul t Performing Organization Address City/[facility] de Phone Number [facility] [address] [place] [address] [phone] * Lipid Panel with Reflex to Direct LDL (05/27/2023 10:16 AM EST) Triglycerides 69 <150 mg/dL [facility] Comment:Desirable Triglyceri de: less than 150 mg/dLBorderline High Triglyceride 150-199 mg/dLHigh Triglyceride: 200-499 mg/dLVery High Triglyceride: greater than or equal to 5OO mg/dL Cholesterol 143 <200 mg/dL [facility] Comment:Desirable Cholestero l: less than 200 mg/dLBorderline High Cholesterol: 200-239 mg/dLHigh Cholesterol: greater than 239 mg/dL LDL Cholesterol Calculated 80 <100 mg/dL [facility] Comment:Desirable LDL: less than 100 mg/dLNear Optimal/Above Optimal LDL: 110- 129 mg/dLBorderline High LDL: 130-159 mg/dLHigh LDL: 160-189 mg/dLVery High LDL: greater than or equal to 190 mg/dL HDL Cholesterol 50 >40 mg/dL [facility] Comment:Desirable HDL: great er than 40 mg/dL Note: This HDL assay may give artificially low results in patients with liver disease. Blood 05/27/2023 10:1 6 AM EST 05/27/2023 12:00 PM EST Silvia Flores MD LAB BLOOD ORDERABLES Final Resul t Performing Organization Address [facility] Co de Phone Number [facility] [address] [place] [address] [phone] * Hepatitis C Antibody Reflex (12/22/2022 10:24 AM EDT) Hepatitis C Antibody Nonreactive Nonreactive [facility] Comment:Antibodies to HCV no t detected; does not exclude early acuteHCV infection. 12/22/2022 10:2 4 AM EDT 12/22/2022 11:10 AM EDT us Silvia Flores MD LAB BLOOD ORDERABLES Final Resul t Performing Organization Address [facility]/ZIP Co de Phone Number [facility] [address] [place] [address] [phone] * HIV Ab/Ag ([facility]) (12/22/2022 10:24 AM EDT) HIV AB/AG Nonreactive Nonreactive [facility] Comment:HIV-1 p24 Ag and/or HIV-1/HIV-2 Ab not detected.A test result that is nonreactive does not exclude thepossibility of exposure to or infection with HIV-1 and/orHIV-2. Nonreactive results in this assay for individualswith prior exposure to HIV-1 and/or HIV-2 may be due toantigen and antibody levels that are below the limit ofdetection of this assay.[employer] HIV Ag/Ab Combo assay result andsupplemental assay results should be interpreted inconjunction with the patient's clinical presentation,history and other laboratory results. If the results areinconsistent with clinical evidence, additional testing issuggested to confirm the result. 12/22/2022 10:2 4 AM EDT 12/22/2022 11:10 AM EDT us Silvia Flores MD LAB BLOOD ORDERABLES Final Resul t Performing Organization Address [facility]/ZIP Co de Phone Number [facility] [address] [place] [phone] from Last 3 Months or Most Recently Relevant to Health Maintenance Insurance [facility] [place] [id number] [address] [place] Care Teams Flat Spring Assembler Relationship Specialty Start Date End Date Silvia Flores MD [address] [place] [address] PCP - General Family Medicine 12/31/21 Rony Wong, LorrieD [address] [place] [address] Pharmacist Internal Medicine 06/10/23 [facility] 12/16/22
--- OUTSIDE RECORDS SUMMARY | 2024-09-18 12:14 | XMS_ITS | Encounter Summary ---
Author Organization [employer] Address [address] [facility] 7t [place] [address] Care Team Providers Care Regional Sales Associate Name Role Phone Silvia Flores MD Primary Care Provider [phone] Rony Wong PharmD Unavailable [phone] Encounter Details Date Type Department Care Team ([facility] st Contact Info) Description 08/26/2022 Orders Only [facility] MEDICINE [address] [place], [place] [phone] Silvia Flores MD [address] [place], [place] [phone] Hypokalemia (Primary Dx) Social History Tobacco Use Types Packs/Day Years Used Date Smoking Tobacco: Every Day Cigarettes Passive Smoke Exposure: Current Smokeless Tobacco: Never Sex and Gender Information Value Date Recorded Sex Assigned at Male 03/09/2022 10:15 AM EDT Legal Sex Male 10:15 AM EDT Gender Identity Male 03/09/2022 10:15 AM EDT Sexual Orientation Straight 03/09/2022 10 :15 AM EDT COVID-19 Exposure Response Date Recorded In the last 10 days, have yo u been in contact with someone who was confirmed or suspected to have Coronavirus/COVID-19? No / Unsure 08/28/2022 10:06 AM EDT documented as of this encounter Plan of Treatment Scheduled Orders Name Type Priority Associated Diagnoses Orde r Schedule Basic Metabolic Panel Lab Routine Hypokalemia Expected: 08/26/2022 (Approximate), Expires: 08/27/2023 Magnesium Lab Routine Hypokalemia Expected: 08/26/2022 (Approximate), Expires: 08/27/2023 documented as of this encounter Visit Diagnoses Diagnosis Hypokalemia- Primary Hypopotassemia documented in this encounter Additional Health Concerns Assessment Noted Time PHQ-9 Depression Total Score: 0 08/26/19 10:59 AM EDT documented as of this encounter Care Teams Regional Sales Associate Relationship Specialty Start Date End Date Silvia Flores MD [address] [place] [address] PCP - General Family Medicine 12/31/21 Rony Wong, Olesya [address] [place] [address] Pharmacist Internal Medicine 06/10/23 [facility] 12/16/22 documented as of this encounter
--- OUTSIDE RECORDS SUMMARY | 2024-09-18 12:14 | XMS_ITS | Encounter Summary ---
Author Organization [employer] Address [address] [facility] 7t [place] [address] Care Team Providers Care Veneer Repairer Machine Name Role Phone Silvia Flores MD Primary Care Provider [phone] Royn Wong PharmD Unavailable [phone] Reason for Visit * Reason Comments Med Refill Encounter Details Date Type Department Care Team ([facility] Contact Info) Description 11/03/2023 Refill [facility] MEDICINE [address] [place] [address] Silvia Flores MD [address] [place] [address] Social History Tobacco Use Types Packs/Day Years [...] on file documented as of this encounter Goals Goal Patient Goal Type Associated Problems Recent Progress Patient-Stated? Author Blood Pressure < 140/90 Blood Pressure 168/80(2024 11:20 AM EDT) No Rony Wong PharmD Hemoglobin A1c < 7 Result Component 6.3( 10:48 AM EDT) No Rony Wong PharmD documented as of this encounter Visit Diagnoses Not on filedocumented in this encounter Additional Health Concerns Assessment Noted Time PHQ-9 Depression Total Score: 14 024 12:07 PM EST documented as of this encounter Care Teams Veneer Repairer Machine Relationship Specialty Start Date End Date Silvia Flores MD [address] [place] [address] PCP - General Family Medicine 12/31/21 Rony Wong PharmD [address] [place] [address] Pharmacist Internal Medicine 06/10/[address] [facility] 12/16/22 documented as of this encounter
--- OUTSIDE RECORDS SUMMARY | 2024-09-18 12:14 | XMS_ITS | Encounter Summary ---
Author Organization [employer] Address [address] [facility] [address]t [place] [address] Care Team Providers Care Health Sciences Program Coordinator Name Role Phone Silvia Flores MD Primary Care Provider [phone] Rony Wong PharmD Unavailable Reason for Visit * Reason Onset Date Comments FYI 05/28/2023 Encounter Details Date Type Department Care Team ([facility] Contact Info) Description 05/28/2023 Telephone [facility] MEDICINE [address] [place], [place] [phone] Silvia Flores MD [address] [place], [place] [phone] FYI Social History Tobacco Use Types Packs/Day [...] encounter Miscellaneous Notes * Telephone Encounter - Alexander Sanchez - 05/28/2023 11:38 AM EST Tc from Bobby Penn RN calling to provide information to PCP on the name of the home care. [facility] Bobby العراقي [phone] documented in this encounter Plan of Treatment Not on file documented as of this encounter Visit Diagnoses Not on filedocumented in this encounter Additional Health Concerns Assessment Noted Time PHQ-9 Depression Total Score: 23 023 11:44 AM EST documented as of this encounter Care Teams Health Sciences Program Coordinator Relationship Specialty Start Date End Date Silvia Flores MD [address] [place] [address] PCP - General Family Medicine 12/31/21 Rony Wong, LorrieD [address] [place] [address] Pharmacist Internal Medicine 06/10/23 [facility] 12/16/22 documented as of this encounter
--- OUTSIDE RECORDS SUMMARY | 2024-09-18 12:14 | XMS_ITS | Encounter Summary ---
Author Organization [employer] Address [address] [facility] 7t [place] [address] Care Team Providers Care Party Chief Name Role Phone Silvia Flores MD Primary Care Provider [phone] Rony Wong PharmD Unavailable [phone] Reason for Visit * Reason Onset Date Comments CHART PREP 09/15/2024 Encounter Details Date Type Department Care Team ([facility] Contact Info) Description 09/15/2024 Telephone [facility] MEDICINE [address] [place], [place] [phone] Silvia Flores MD [address] [place], [place] [phone] CHART PREP Social History Tobacco Use Types Packs/Day Years [...] encounter Miscellaneous Notes * Telephone Encounter - Leandro Parsons [place] - 09/15/2024 10:33 AM EDT Chart Prep Labs: not applicable Images: not applicable Referrals: not applicable Vaccines due: Zoster Screenings: colonoscopy, eye exam, and foot exam Overdue care gaps: A1c, Glucose, SBIRT, SDOH, PHQ-9, YARELY-7, Oral health screening, Disability screen, and Tobacco documented in this encounter Plan of Treatment [...] documented as of this encounter Care Teams Party Chief Relationship Specialty Start Date End Date Silvia Flores MD [address] [place] [address] PCP - General Family Medicine 12/31/21 Rony Wong, LorrieD [address] [place] [address] Pharmacist Internal Medicine 06/10/23 [facility] 12/16/22 documented as of this encounter
--- OUTSIDE RECORDS SUMMARY | 2024-09-18 12:14 | XMS_ITS | Encounter Summary ---
Author Organization [employer] Address [address] [facility] 7t [place] [address] Care Team Providers Care Used Car Renovator Name Role Phone Silvia Flores MD Primary Care Provider [phone] Rony Wong PharmD Unavailable [phone] Reason for Visit * Reason Onset Date Comments FYI 01/14/2023 Encounter Details Date Type Department Care Team ([facility] st Contact Info) Description 01/14/2023 Telephone [facility] MEDICINE [address] [place], [place] [phone] Silvia Flores MD [address] [place], [place] [phone] FYI Social History Tobacco Use Types Packs/Day [...] encounter Miscellaneous Notes * Telephone Encounter - Cleo Coyne - 01/14/2023 10:40 AM EDT Tc from Bobby from [facility] calling to report a fall pt had on 01/13/23 . Inform ptis fine no symptoms at this time . documented in this encounter Plan of Treatment Not on file documented as of this encounter Visit Diagnoses Not on filedocumented in this encounter Additional Health Concerns Assessment Noted Time PHQ-9 Depression Total Score: 0 08/26/19 23 10:59 AM EDT documented as of this encounter Care Teams Used Car Renovator Relationship Specialty Start Date End Date Silvia Flores MD [address] [place] [address] PCP - General Family Medicine 12/31/21 Rony Wong, LorrieD [address] [place] [address] Pharmacist Internal Medicine 06/10/23 [facility] 12/16/22 documented as of this encounter
--- OUTSIDE RECORDS SUMMARY | 2024-09-18 12:14 | XMS_ITS | Encounter Summary ---
Author Organization [employer] Address [address] [facility] 7t [place] [address] Care Team Providers Care Dopeman Name Role Phone Silvia Flores MD Primary Care Provider Rony Wong PharmD Unavailable [phone] Reason for Visit * Reason Onset Date Comments Hospital Follow-up 05/05/2023 Encounter Details Date Type Department Care Team ([facility] st Contact Info) Description 05/05/2023 Telephone [facility] MEDICINE [address] [place], [place] [phone] Silvia Flores MD [address] [place], [place] [phone] Hospital Follow-up Social History Tobacco Use Types Packs/Day Years [...] encounter Miscellaneous Notes * Telephone Encounter - Shannon Leary - 05/05/2023 3:46 PM EST Tc from pt requesting a HDF appt. Hospital: [facility] (Rehab) Date of admission: 04/27 Discharge date: 05/04 Diagnosed: opoid use Please contact katlyn at [phone] documented in this encounter Plan of Treatment Not on file documented as of this encounter Visit Diagnoses Not on filedocumented in this encounter Additional Health Concerns Assessment Noted Time PHQ-9 Depression Total Score: 23 023 11:44 AM EST documented as of this encounter Care Teams Dopeman Relationship Specialty Start Date End Date Silvia Flores MD [address] [place] [address] PCP - General Family Medicine 12/31/21 Rony Wong, LorrieD [address] [place] [address] Pharmacist Internal Medicine 06/10/23 [facility] 12/16/22 documented as of this encounter
--- OUTSIDE RECORDS SUMMARY | 2024-09-18 12:14 | XMS_ITS | Encounter Summary ---
Author Organization [employer] Address [address] [facility] [address] [place] [address] Care Team Providers Care Attorney General Name Role Phone Silvia Flores MD Primary Care Provider [phone] Rony Wong PharmD Unavailable [phone] Encounter Details Date Type Department Care Team ([facility] st Contact Info) Description 06/03/2023 Orders Only [facility] MEDICINE [address] [place], [place] [phone] Lucero Scott RN Opioid type dependence, continuous (CMS/HCC) (Primary Dx) Social History Tobacco Use Types [...] as of this encounter Visit Diagnoses Diagnosis Opioid type dependence, continuous (CMS/[facility])- Primary Opioid type dependence, continuous documented in this encounter Additional Health Concerns Assessment Noted Time PHQ-9 Depression Total Score: 23 023 11:44 AM EST documented as of this encounter Care Teams Attorney General Relationship Specialty Start Date End Date Silvia Flores MD [address] [place] [address] PCP - General Family Medicine 12/31/21 Rony Wong, LorrieD [address] [place] [address] Pharmacist Internal Medicine 06/10/23 [facility] 12/16/22 documented as of this encounter
--- OUTSIDE RECORDS SUMMARY | 2024-09-18 12:14 | XMS_ITS | Encounter Summary ---
Author Organization [employer] Address [address] [facility] 7t [place] [address] Care Team Providers Care Field Clinical Engineer Name Role Phone Silvia Flores MD Primary Care Provider [phone] Rony Wong PharmD Unavailable [phone] Reason for Visit * Reason Onset Date Comments Nurse Triage 04/27/2023 Encounter Details Date Type Department Care Team ([facility] Contact Info) Description 04/27/2023 Telephone [facility] [address] [place], [place] [phone] Silvia Flores MD [address] [place], [place] [phone] Nurse Triage Social History Tobacco Use Types Packs/Day Years [...] encounter Miscellaneous Notes * Telephone Encounter - Kayce Olivares RN - 04/27/2023 10:17 AM EST Triage call , Lorena from [facility] calls with Pt next to her. Pt has come to [facility] office looking for rehab referral for substance abuse problem. Advised for Pt to come to [facility] today open till 8pm, forprovider to evaluate Pt. Pt agrees with this disposition and will come to [facility] today. Protocol Used: Information Only Call - No Triage (Adult) Protocol-Based Disposition: Callback or Video Visit by PCP Today Video visit not offered Positive Triage Question: * Nursing judgment * All higher-acuity triage questions were negative Care Advice Discussed: * Reasons To Call Back - New symptoms develop - You have more questions - You become worse * Telephone Encounter - Indu Mathews - 04/27/2023 9:59 AM EST Symptoms: Depression, Substance Use Concerns, Weight Loss Outcome: Transfer to a nurse or provider NOW! Reason: Acting confused The caller accepted this outcome Please call in welsh [phone] Lorena is requesting a rehab referral. documented in this encounter Plan of Treatment Not on file documented as of this encounter Visit Diagnoses Not on filedocumented in this encounter Additional Health Concerns Assessment Noted Time PHQ-9 Depression Total Score: 23 023 11:44 AM EST documented as of this encounter Care Teams Field Clinical Engineer Relationship Specialty Start Date End Date Silvia Flores MD [address] [place] [address] PCP - General Family Medicine 12/31/21 Rony Wong, Olesya [address] [place] [address] Pharmacist Internal Medicine 06/10/23 [facility] 12/16/22 documented as of this encounter
--- OUTSIDE RECORDS SUMMARY | 2024-09-18 12:14 | XMS_ITS | Encounter Summary ---
Author Organization [employer] Address [address] [facility] 7t [place] [address] Care Team Providers Care Panel Machine Tender Name Role Phone Silvia Flores MD Primary Care Provider [phone] Rony Wong PharmD Unavailable [phone] Encounter Details Date Type Department Care Team ([facility] Contact Info) Description 09/18/2022 Telephone [facility] MEDICINE [address] [place], [place] [phone] Natasha Amin LPN Social History Tobacco Use Types Packs/Day Years [...] suspected to have Coronavirus/COVID-19? No / Unsure 09/02/2022 9:16 AM EDT documented as of this encounter Plan of Treatment Not on file documented as of this encounter Visit Diagnoses Not on filedocumented in this encounter Additional Health Concerns Assessment Noted Time PHQ-9 Depression Total Score: 0 08/26/19 23 10:59 AM EDT documented as of this encounter Care Teams Panel Machine Tender Relationship Specialty Start Date End Date Silvia Flores MD [address] [place], [place] [phone] PCP - General Family Medicine 12/31/21 Rony Wong, PharmD [address] [place] [phone] Pharmacist Internal Medicine 06/10/23 [facility] 12/16/22 documented as of this encounter
--- OUTSIDE RECORDS SUMMARY | 2024-09-18 12:14 | XMS_ITS | Encounter Summary ---
Author Organization [employer] Address [address] [facility] [address] [place] [address] Care Team Providers Care Promotions Assistant Sales Marketing Name Role Phone Silvia Flores MD Primary Care Provider [phone] Rony Wong PharmD Unavailable [phone] Encounter Details Date Type Department Care Team (Latest Contact Info) Description 09/18/2024 Travel Social History Tobacco Use Types Packs/Day Years [...] documented as of this encounter Care Teams Promotions Assistant Sales Marketing Relationship Specialty Start Date End Date Silvia Flores MD [address] [place] [address] PCP - General Family Medicine 12/31/21 Rony Wong PharmD [address] [place] [address] Pharmacist Internal Medicine 06/10/23 [facility] 12/16/22 documented as of this encounter
--- OUTSIDE RECORDS SUMMARY | 2024-09-18 12:14 | XMS_ITS | Encounter Summary ---
Author Organization [employer] Address [address] [facility] [address] [place] [address] Care Team Providers Care Litigation Partner Name Role Phone Silvia Flores MD Primary Care Provider [phone] Rony Wong PharmD Unavailable [phone] Reason for Visit * Reason Onset Date Comments Requested Call Back 10/13/2022 Encounter Details Date Type Department Care Team ([facility] st Contact Info) Description 10/13/2022 Telephone [facility] MEDICINE [address] [place], [place] [phone] Silvia Flores MD [address] [place], [place] [phone] Requested Call Back Social History Tobacco Use Types Packs/Day Years [...] encounter Miscellaneous Notes * Telephone Encounter - Marimar Kim - 10/13/2022 2:22 PM EDT Randall Bernard at [facility] calling to inform PCP patient was admitted at [facility] adult foster care 10/13/22. Patient has not taken his medication at all today. Core Winder triaged patient with high BP 177/118. Staff can only remind patients to take medication they cannot administer them. Joana is requesting for VNA services. States patient needs education on medications and diagnoses. Please call [phone] documented in this encounter Plan of Treatment Not on file documented as of this encounter Visit Diagnoses Not on filedocumented in this encounter Additional Health Concerns Assessment Noted Time PHQ-9 Depression Total Score: 0 08/26/19 23 10:59 AM EDT documented as of this encounter Care Teams Litigation Partner Relationship Specialty Start Date End Date Silvia Flores MD [address] [place] [address] PCP - General Family Medicine 12/31/21 Rony Wong, [place] [address] [place] [address] Pharmacist Internal Medicine 06/10/23 [facility] 12/16/22 documented as of this encounter
--- OUTSIDE RECORDS SUMMARY | 2024-09-18 12:14 | XMS_ITS | Encounter Summary ---
Author Organization [employer] Address [address] [facility] [address] [place] [address] Care Team Providers Care Signal Worker Name Role Phone Silvia Flores MD Primary Care Provider [phone] Rony Wong PharmD Unavailable Encounter Details Date Type Department Care Team ([facility] Contact Info) Description 08/26/2022 Orders Only [facility] [address] [place], [place] [phone] Ntaasha Jacob MD [address] [place] [address] Social History Tobacco Use Types Packs/Day Years [...] documented as of this encounter Care Teams Signal Worker Relationship Specialty Start Date End Date Silvia Flores MD [address] [place] [address] PCP - General Family Medicine 12/31/21 Rony Wong, LorrieD [address] [place] [address] Pharmacist Internal Medicine 06/10/23 [facility] 12/16/22 documented as of this encounter
== END 2024-09-18 11:23 | disposition home or self-care (01) ==
LOC: HO.HHCL 11:22
PROVIDERS: Visit Provider Family Medicine
DX: M79.642 Pain in left hand (principal); M79.671 Pain in right foot; G89.29 Other chronic pain; M79.672 Pain in left foot
CPT/HCPCS: 73130; 73630

== ENCOUNTER → 2024-09-18 11:38 | Outpatient (BNV) | payer MEDICAID, SELFPAY | PROVIDERS: Visit Provider Radiology Diagnostic Radiology | DX: M79.642 Pain in left hand (principal); M79.672 Pain in left foot; M79.671 Pain in right foot | CPT/HCPCS: 73130; 73630 ==

== ENCOUNTER 2024-09-26 11:52 | Outpatient (REF) | payer MEDICAID, SELFPAY ==
--- OUTSIDE RECORDS SUMMARY | 2024-09-26 13:04 | XMS_ITS | Encounter Summary ---
Author Organization [employer] Address [address] [facility] [address] [place] [address] Care Team Providers Care Redevelopment Manager Name Role Phone Silvia Flores MD Primary Care Provider [phone] Rony Wong PharmD Unavailable [phone] Reason for Visit * Reason Onset Date Comments Results 2024 Encounter Details Date Type Department Care Team ([facility] st Contact Info) Description 2024 Results Follow-Up [facility] MEDICINE [address] [place] [address] Silvia Flores MD [address] [place] [address] XR Foot 3+ Views Right Social History Tobacco Use Types Packs/Day Years [...] encounter Miscellaneous Notes * Telephone Encounter - Joy Ashton RN - 09/25/2024 9:49 AM EDT TC placed to pt via [employer] cat cracker operator (Rica ID#[id number]) per below PCP message. Pt's niece answered the phone. Requested pt's niece ask the pt to call office back at [phone] and ask to speak to the green team nurses. Pt's niece agrees to let pt know to call office back. ----- Message from Silvia Flores MD sent at 2024 7:31 AM EDT ----- Please inform the patient that his foot x-ray showed chronic degenerative change, such as arthritisand inflammation of his ligament. His hand x-ray showed mild arthritis. He was referred to orthopedist, please emphasize the importance of keeping appointment. Thank you. ----- Message ----- From: Madelyn Ris Results In Sent: 09/18/2024 2:32 PM EDT To: Silvia Flores MD documented in this encounter Plan of Treatment Upcoming Encounters Date Type Department Care Team (Late st Contact Info) Description 10/10/2024 3:00 PM EDT Medication Management [facility] [address] [place] [address] 12/08/2024 3:15 PM EDT Office Visit [facility] OPTOMETRY [address] [place], [place] [phone] Nataliia Mcdonald, OD [address] [place] [address] documented as of this encounter Goals Goal [...] documented as of this encounter Care Teams Redevelopment Manager Relationship Specialty Start Date End Date Slivia Flores MD [address] [place] [address] PCP - General Family Medicine 12/31/21 Rony Wong PharmD [address] [place] [address] Pharmacist Internal Medicine 06/10/23 [facility] 12/16/22 documented as of this encounter
--- OUTSIDE RECORDS SUMMARY | 2024-09-26 13:04 | XMS_ITS ---
Author Organization [employer] Address [address] [facility] [address] [place] [address] Care Team Providers Care Bonding Machine Tender Name Role Phone Silvia Flores MD Primary Care Provider Rony Wong PharmD Unavailable Wendi Ibrahim RN Unavailable [phone] Blanca Leary Unavailable CM Complex Status:Outreach In Progress (Enrolling) Start date:09/26/2024 Enrollment reason:Referred by provider Overview PCP Referral- Assist in keeping medical appts and using resources for his SDOH needs. Pt's nephew is his caregiver now, and requests meals on wheels or meal delivery service. Case Team Name Relationship Phone Wendi Ibrahim RN(Responsible Staff) Registered Nurse [phone] Continued Care and Services Coordination
--- OUTSIDE RECORDS SUMMARY | 2024-09-26 13:04 | XMS_ITS | Data Portability ---
Author Organization [email or web address], Main Office Address [address] [facility] [place] [address] Care Team Providers Care Sheet Rock Applier Name Role Phone [facility] OTHER Assessment No assessment recorded. Plan of Treatment Reminders Order Date Submit Date Provider Last Modified By Organization Details Last Modified Time Details Appointments None record ed. Lab None record ed. Referral None record ed. Procedures None record ed. Surgeries None record ed. Imaging None record ed. Medication Orders None record ed. Patient TargetsNo targets recorded. Patient Instructions Encounter Date Encounter Id Patient Instructions Last Modified By Organization Details Last Modified Time 02/14/2021 [id number] Need catholic priest to do MOLST Dispo -- to community when rehab goals are met, likely 21-28 days due to homelessness [email or web address] Not available 02/14/2021 16:40:14 03/06/2021 [id number] F/U Appointments : PCP: TBD Cards: needs f/u 1 month Buprenorphine: TBD Total time spent on discharge: 60 minutes Scripts written for 30-day supply for all meds except Suboxone, including insulin and DME Ok to discharge with meds and services, including Suboxone [email or web address] Not available 03/06/2021 10:32:10 Reason for Referral None Reported. Problems Name Problem SNOMED Code Status Onset Date Resolution Date Notes Provider Name and Address Organization Details Recorded Time Nonischemic congestive cardiomyopa thy [id number] Active 2020 ANNA HARDY PA-C [address] [facility], [address], [place], [address], [employer] 16:14:12 Type 2 diabetes mellitus with peripheral angiopathy 770554361 Active 2020 ANNA HARDY PA-C [address] [facility], [address], [place], [address], [facility] 16:14:42 Chronic systolic heart failure 903505379 Active 2020 ANNA HARDY PA-C [address] , [address], [place], [address], [facility] 16:14:59 Essential hypertensio n 36078639 Active 2020 ANNA HARDY PA-C [address] [facility], [address], [place], [address], [facility] 16:15:13 Dyslipidemi a 494042373 Active 2020 ANNA HARDY PA-C [address] [facility], [address], [place], [address], [facility] 16:15:37 History of cerebrovasc ular accident 671758781 Active 2020 ANNA HARDY PA-C [address] [facility], [address], [place], [address], [facility] 16:15:54 Continuous opioid dependence 053342234 Active 2020 ANNA HARDY PA-C [address] [facility], [address], [place], [address], [employer] 16:16:12 Cigarette smoker 47687342 Active 2020 Ligia Brooke MD [address] [facility], [address], [place], [address], [facility] 01:46:34 Insomnia 873089609 Active 2020 Ligia Brooke MD [address] [facility], [address], [place], [address], [employer] 01:47:51 Problem Notes None recorded. Medical Equipment None Reported. Allergies Allergen ID Allergen Name Allergen Category Reaction Reaction Severity Criticality Documentation Date Start Date Code Code System Note Provider Name and Address Organization Details Recorded Time 38439 Product containin g penicilli n (product) medicatio n Not available Not available Not available 02/14/2021 [id number] SNOMED ANNA HARDY PA-C [address] [facility], [address], [place], [address], [facility] 15:31:09 Medications Not known to be on any medication Vitals Date Recorded Body temperature Heart rate Respiratory rate Oxygen saturation Oxygen saturation in Arterial blood by Pulse oximetry Body weight Body mass index (BMI) Body height Systolic blood pressure Diastolic blood pressure Provider Name and Address Organization Details Last Updated DateTime 97.3 [degF] 94 /min 18 /min 96 % 96 % 698169. 15 g 55.1 kg/m2 162.56 cm 124 mm[Hg] 78 mm[Hg] ANNA HARDY PA-C [address] , [address], [place], [address], [facility] 15:24:20 Date Recorded Body height Body mass index (BMI) Body weight Heart rate Respiratory rate Body temperature Oxygen saturation Oxygen saturation in Arterial blood by Pulse oximetry Systolic blood pressure Diastolic blood pressure Provider Name and Address Organization Details Last Updated DateTime 162.56 cm 55.1 kg/m2 263706. 15 g 89 /min 18 /min 97.3 [degF] 97 % 97 % 127 mm[Hg] 84 mm[Hg] Ligia Brooke MD [address] [facility], [facility] [address], [place], [address], [employer] 13:16:56 Date Recorded Body height Body temperature Respiratory rate Heart rate Oxygen saturation Oxygen saturation in Arterial blood by Pulse oximetry Systolic blood pressure Diastolic blood pressure Provider Name and Address Organization Details Last Updated DateTime 1 162.56 cm 97.5 [degF] 18 /min 90 /min 96 % 96 % 140 mm[Hg] 86 mm[Hg] ANNA HARDY PA-C [address] , [address], [place], [address], [facility] 11:39:20 Date Recorded Body height Body temperature Heart rate Respiratory rate Oxygen saturation Oxygen saturation in Arterial blood by Pulse oximetry Body mass index (BMI) Body weight Systolic blood pressure Diastolic blood pressure Provider Name and Address Organization Details Last Updated DateTime 1 162.56 cm 97.2 [degF] 98 /min 18 /min 96 % 96 % 54.9 kg/m2 405543. 12 g 106 mm[Hg] 62 mm[Hg] ANNA HARDY PA-C [address] [facility], [address], [place], [address], [email or web address] 09:28:52 Social History Question Answer Notes LastModified by Organizat [employer] Details LastModified Time Tobacco Smoking Status Current Every Day Smoker ANNA HARDY PA-C [address] [facility], [address], [place], [address], [email or web address] 02/14/2021 16:17:15 Do You Have An Advance Directive? Yes Information not available 02/20/2021 What Is Your Code Status? Full Code [email or web address] Information not available 02/14/2021 Legal Guardian? No [email or web address] Information not available 02/14/2021 Do You Have A Medical Power Of Cashier Or Checker Stock Clerk? Yes Information not available 02/20/2021 How Much Tobacco Do You Smoke? 0.25 PPD [email or web address] Information not available 02/14/2021 Has Tobacco Cessation Counseling Been Provided? Yes Not Interested In Quitting Information not available 02/20/2021 On What Date Was Tobacco Cessation Counseling Provided? 02/17/2021 Information not available 02/20/2021 How Many Years Have You Smoked Tobacco? 40 [email or web address] Information not available 02/14/2021 Sex: Unknown Functional Status Question Answer Note LastModified by Organizat ion Details LastModified Time Do you or have you ever used any other forms of tobacco or nicotine? No [email or web address] Information not available 02/14/2021 What is your level of alcohol consumption? Occasional [email or web address] Information not available 02/14/2021 Mental Status None recorded. Family History Relationship Description Onset Age of this Age Resolved Age Notes LastModified by Organization Details LastModified Time Father Coronary arterioscler osis [email or web address] Not available 2020 15:49:29 Father Diabetes mellitus [email or web address] Not available 2020 15:49:43 Father Hypertensive disorder [email or web address] Not available 2020 15:50:07 Medical History No medical history recorded. Immunizations Vaccine Type Date Status Note Provider Nam e and Address Organization Details Recorded Time COVID-19, mRNA, LNP-S, PF, 30 mcg/0.3 mL dose 06/11/2020 completed ANNA HARDY PA-C [address] [facility], [address], [place], [address], [facility] [email or web address] 03/06/2021 09:29:43 COVID-19, mRNA, LNP-S, PF, 30 mcg/0.3 mL dose 07/10/2020 completed ANNA HARDY PA-C [address] [facility], [address], [place], [address], [facility] [facility] 03/06/2021 09:29:49 Past Encounters Encounter ID Performer Location Encounter Start Date Encounter Closed Date Diagnosis/Indication Diagnosis SNOMED-CT Code Diagnosis ICD10 Code Diagnosis Note [id number] ANNA HARDY PA-C [facility] on [address] [place] [address] 02/14/2021 15:20:47 02/17/2021 14:00:41 Nonischemic congestive cardiomyopathy 4713793264 04 I42.0 Continue:- Lasix 20 mg po daily-ASA 81 mg po daily-Lipi tor 40 mg po qhs-Lisino pril 20 mg po dailyNot on B-laura due to cocaine use d/o Cards in 2 weeks (Gus eliz) [phone] Essential hypertension 55882899 I10 Continue Lisinopril 20 mg po dailyMonit or BPs and adjust meds prn Dyslipidemia 924368006 E 78.5 Continue Lipitor 40 mg po qhsRecent lipid panelOutpa tient f/u after d/c History of cerebrovascular accident 901785722 Z86.73 Statin, ASAPT/OT/S LP Type 2 stephon betes mellitus with peripheral angiopathy 702258030 E11.51 Add correction al Humalog or equivalent Continue:- Lantus 20 ux SQ qhs-Stegla tro 15 mg po q am-Glyburi de 5 mg po q am On ROSA MARIA-I for renal protection Chest pain 03930417 R07. 9 Musculoske letalConti nue Lidocaine 4% patch dailyAPAP prn Chronic sy stolic heart failure 329686966 I50.22 Continue Lasix 20 mg po daily-chec k MgContinue Lisinopril 20 mg po q amCheck TSH for completene ss Continuous opioid dependence 240381860 F11.20 Continue Suboxone 8/2 mg 1 film SL dailyScrip t for #30 no refills given to nurse Unsteady when walking 22 973578 R26.89 PT/OT [id number] Ligia Brooke MD [facility] on [address] [place] [address] 02/17/2021 13:14:14 02/20/2021 15:04:55 Nonischemic congestive cardiomyopathy 7967434360 04 I42.0 Stable on Lasix 20 mg qd and lisinopril 20 mg qd andNot on B-laura due to cocaine use d/oMonitor BP/P and resp status.F/U with cardio in 2 weeks as planned, Dr. Maldonado n Essential hypertension 83127638 I10 Good control on meds as above.Maru tor BP and labs. Dyslipidemia 650803977 E 78.49 Continue atorvastat in 40 mg qdMonitor labs as outpt. History of cerebrovascular accident 836795828 Z86.73 Continue meds as above and ASA 81 mg qd.Monitor for new sxs. Type 2 stephon betes mellitus with peripheral angiopathy 567560893 E11.51 HgA1C was 11.9 inpt.Has been consistent ly high since here.For now will continue Lantus 20U qd, Steglatro 15 mg qd, glyburide 5 mg qd and SSI.If continues too high would increase lantus to 25U.Monito r accuchecks TID. Chest pain 57636704 R07. 89 Musculoske letalConti nue Lidocaine 4% patch qd and APAP prn. Also on suboxone which will help pain. Chronic sy stolic heart failure 878479008 I50.22 Appears euvolemic. Conitnue meds as above.Maru tor resp. status, fluid status, wts and labs. Continuous opioid dependence 595886061 F11.20 Continue Suboxone 8/2 mg 1 film SL dailyMonit or Unsteady when walking 22 379507 R26.89 Very deconditio lauren.Needs PT/OT for strengthen ing, balance, gait training, safety and function.C ontinue fall precaution s.Monitor for safety. Constipation 97851158 K5 9.09 No BM for 3 days.Will start miralax 17 gms qd and continue prn bowel protocol.M onitor bowel function. Cigarette smoker 0212032 7 F17.210 Continue nicotine gum prn cravings. Encourage cessation. Insomnia 697533528 G47.0 9 Continue amitryptil ine 50 mg qhs.Monito r mood and sleep patterns.P sych consult prn. [id number] ANNA HARDY PA-C [facility] on [address] [place] [address] 02/21/2021 11:38:45 02/24/2021 16:09:20 Uncontrolled type 2 diabetes mellitus 264304171 E11.65 with PVDSugars remain elevated.Sharmin DUNLAP explained to him in Lithuanian that he's getting insulin and sliding scale in addition to his pillsCurre ntly getting correction al insulin bid -- requiring 12 ux on averageGiv en his morbid obesity, he will need split-dose Lantus for optimal absorption Increase Lantus from 20 ux SQ qhs to 15 ux SQ bidIncreas e fingerstic ks to tidac and qhsCorrect ional insulin tidac and qhsMonitor sugars and adjust meds prnOn ROSA MARIA-I for renal protection [id number] ANNA HARDY PA-C [facility] on [address] [place] [address] 03/06/2021 09:28:11 03/11/2021 09:54:13 Nonischemic congestive cardiomyopathy 0996316901 04 I42.0 Continue:- Lasix 20 mg po daily-ASA 81 mg po daily-Lipi tor 40 mg po qhs-Lisino pril 20 mg po dailyNot on B-laura due to cocaine use d/o Cards in 1 month (Gus an) Type 2 stephon betes mellitus with peripheral angiopathy 764313479 E11.51 Remains poorly controlled Pt has been educated about importance of compliance with prescribed dietContin ue:-Increa se Lantus from 15 ux SQ bid to 20 ux bid-Stegla tro 15 mg po q am-Glyburi de 5 mg po q am-Correct ional insulinMon itor sugars and adjust meds prnOn ROSA MARIA-I for renal protection Chronic sy stolic heart failure 271801076 I50.22 Compensate d while here-weigh t overall down Continue Lasix 20 mg po dailyConti nue Lisinopril 20 mg po q amf/u cards Check CBCD, BMP, TSH, Mg in am Health Concerns Section Related Observation LastModified by Organization Detai ls LastModified Time None Recorded Concern Status LastModified by Organization Details LastModified Time None Recorded Advance Directives Directive Y: Payers Encounter Date Sequence Insurance Name Policy Number Policy Zuniga Covered Member ID Zuniga Member ID Guarantor Name 02/14/2021 1 [facility] (MEDICAID HMO) [id number] David Petrona [id number] 1 David Petrona 02/17/2021 1 [facility] (MEDICAID HMO) [id number] David Petrona [id number] 1 David Petrona 02/21/2021 1 [facility] (MEDICAID H[facility]) [id number] David Petrona [id number] 1 David Petrona 03/06/2021 1 [facility] (MEDICAID HMO) [id number] David Petrona [id number] 1 David Petrona Notes Date Note Type Note Provider Name and Address Organization Details Recorded Time 02/14/2021 text/html Pt seen today fo r initial review. Most info obtained from records as pt Lithuanian speaking only 55-y/o admitted from [facility] where he was hospitalized 02/09-02/13/21 for chest pain. Dx nonischemic cardiomyopathy. Had elevated troponins and admitted to telemetry. Seen by cards. Seen by Addiction Medicine and restarted on Suboxone. Lantus added for glycemic control. PMHx: Non-ischemic cardiomyopathy; DM2 with PVD, uncontrolled; Morbid obesity; Opiate use d/o; Chronic systolic CHF; Tobacco use d/o; Cocaine use d/o; HTN; Hx CVA with L-sided weakness; Dyslipidemia; Hep B Ab positive Healthcare Maintenance: subacute rehab pt PPI use: not on a PPI Meds:Lipitor 40 mg po qhs (new)Lantus 20 ux SQ qhs (new)Lidoderm 4% daily to chest (new)ASA 81 mg po daily (new)Nicotine gum prn (new)Glyburide 5 mg po dailyLisinopril 20 mg po dailyElavil 50 mg po q qhsLasix 20 mg po dailySteglatro 15 mg po q amSuboxone 8/2 mg 1 film SL qhs (new) Diet: 2g Na, regular texture, thin liquids Mobility: can use walker but uses wheelchair because he's homelessContinence: continent of bowel and bladderFeeding: independent ROS: limited by language barrier but denies CP/SOB ANNA HARDY PA-C [address] [place] [address], [address], [place], [address], [facility] [email or web address] 02/14/2021 16:42:44 02/17/2021 text/html This is a 55 yo man who is here for rehab after an acute hospitalization for chest pain. He presented to [place] [facility] [place] [facility] with c/o CP for 12 hrs, started out dull then at one point got so severe that he wet himself. His troponin was 54, but EKG non-specific and CP was reproducible by palpation of chest wall. His pain improved after being given ASA. Repeat troponin was 45. Cardio thought musculoskeletal pain, but also considered cocaine induced CP as pt's tox screen was + for cocaine, fentanyl and opiates. Echo showed EF of 20-25% with no wall motion abnormalities. He had no clinical signs of CHF. Addiction med. was consulted and started him on suboxone. His blood sugars were out of control and his HgA1C was 11. 9, so lantus was added to his po meds. He was also found to be + for anti-HBc with titers pending at the time of d/c. He was transferred here for rehab on 02/13. Of note he was recently released from [facility].Since here he has been participating with rehab and feels like he is getting a little stronger. He tells me it still hurts in left upper chest, almost under arm.His PMH includes HTN, OUD-cocaine/heroin primarily, AODM with severe hyperglycemia, PVD, non-ischemic cardiomyopathy, morbid obesity, cigarette smoker, hx of CVA with mild left sided weakness, HLD, and Hep B core ab +-titers pending. Ligia Brooke MD [address] [facility], [address], [place], [address], [facility] 02/20/2021 01:48:13 02/21/2021 text/html Pt seen for acut e rounding visit today for DM. 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 He said he's usually on insulin at home but has not been getting any here and he is concerned because his sugars have been running high. Pt admitted 02/13/21 from [facility] following hospitalization for chestpain. Dx non-ischemic cardiomyopathy. Here for subacute rehab with plan to return home, PMHx reviewed and includes DM2 with PVD, uncontrolled Meds reviewed and include:Lantus 20 ux SQ qhsGlyburide 5 mg po q amLisinopril 20 mg po q amSteglatro 15 mg po q amCorrectional insulin was added on admit. Per EMAR review, pt has been receiving meds as ordered. No other complaints. ANNA HARDY PA-C [address] [facility], [address], [place], [address], [employer] 02/21/2021 12:14:33 03/06/2021 text/html Pt seen today fo r discharge. Seen with stick puller Note Amended 03/06/21 @ 1244 Admit Date: 02/13/21 Discharge/Service Date: 03/06/21 for03/10/21 discharge (was rescheduled from 03/06 to 03/10/21 last minute) Principle Discharge Diagnosis: Non-ischemic cardiomyopathy; DM2 with PVD, uncontrolled Secondary Discharge Diagnoses: Morbid obesity; Opiate use d/o, on Suboxone; Chronic systolic CHF; Tobacco use d/o; Cocaine use d/o; HTN; Hx CVA with L-sided weakness; Dyslipidemia; Hep B Ab positive; Chronic constipation Hospital Patient Received From: [facility] Attending MD: Dr. Contreras Romero/Anna Hardy PA-C Medications Started at SNF: Correctional Humalog; MiraLax Medications Discontinued at SNF & Why: Nicotine gum (non-use) Dose Changes: Lantus increased and split-dosed Med changes prior to admit:Lipitor addedLantus addedLidoderm addedASA addedNicotine gum addedSuboxone added Discharge Medication List:Elavil 50 mg po qhsASA 81 mg po q amLipitor 40 mg po qhsSteglatro 15 mg po q amLasix 20 mg po q amGlyburide 5 mg po q amLidocaine 4% patch daily to low backLisinopril 20 mg po q amMiraLax 17 g po dailySuboxone 8-2 mg 1 film SL q amLantus 20 ux SQ bid (increased 03/06 from 15 ux bid)Humalog sliding scale-If sugar 151-200, 2 ux; 201-250, 4 ux; 251-300, 6 ux; 301-350, 8 ux: >350, 10 ux PCP Head? s Up: Sugars remain uncontrolled, mostly due to non-compliance with dietary restrictions. Will need ongoing aggressive titration of diabetes meds Post-Acute Summary: Admitted for subacute rehab. Participated and progressed in PT/OT/LEARNING CONSULTANT (see their discharge summaries for details.) Blood sugars monitored and Lantus increased and changed to bid dosing given obesity. Continued to be non-compliant with dietary restrictions despite education. Modest improvement in sugars but not yet controlled. No evidence of decompensated CHF while here. Had f/u cards CONCRETE BLOCK PLANT SUPERVISOR yesterday, who recommended to continue same meds, avoid B-blockers due to cocaine use, and to return 1 month. Cards also arranging nuclear stress test to eval for ischemia. Discharging today with [facility]. Home Health Certification: Dx as above; Seen this am by ANGELITO-registered Anna Hardy PA-C NPI# [id number]; Last MD visit 02/17/21; senior care for medication management and reconciliation and teaching, diabetes teaching and management, and monitoring of CHF; PT: home exercise program for gait training and increasing muscle strength and needs home environment assessment to determine need for assistive devices; OT for increased independence with ADLs; Home-bound due to needs assistance to navigate uneven sidewalks and curbs and needs two hands for rolling walker and also needs assistance to propel wheelchair when he uses that. Consultants Involved: cards Tests/Labs Needing to be Ordered or Followed by PCP: per PCP discretion although TSH and Mg level were ordered here but apparently not performed.REORDERING FOR 03/07/21 - WILL UPDATE RESULTS PRIOR TO DISCHARGE Services Ordered at Discharge: referred to [facility] Diet: 2-4 g Na, carb controlled. regular texture, thin liquids Activity: wheelchair and rolling walker Pt is very upset about being discharged. Does not have anywhere to go. Had been working with social contact worker re: discharging to his sister's house vs to snf. Last impression is that he was going to live with his sister and have [facility] there. Denies pain, dyspnea, edema, orthopnea, chest pain. Disclosed that he does not own a glucometer but does have previous experience with and understands how to monitor sugars, administer insulin, and utilize sliding scale. Received last minute notice from insurance company that his coverage has been approved through 03/09/21 with a 03/10/21 discharge. Pt no longer tearful and is pleased. ANNA HARDY PA-C [address] [facility], [address], [place], [address], [facility] 03/06/2021 12:55:01
--- OUTSIDE RECORDS SUMMARY | 2024-09-26 13:04 | XMS_ITS | Encounter Summary ---
Author Organization [employer] Address [address] [facility] [address] [place] [address] Care Team Providers Care Pathology Technologist Name Role Phone Silvia Flores MD Primary Care Provider Rony Wong PharmD Unavailable [phone] Wendi Ibrahim RN Unavailable [phone] Blanca Leary Unavailable Reason for Visit * Reason Comments Med Refill Encounter Details Date Type Department Care Team (Late st Contact Info) Description 11/03/2023 Refill [facility] [address] [place], [place] [phone] Silvia Flores MD [address] [place], [place] [phone] Social History Tobacco Use Types Packs/Day Years [...] as of this encounter Plan of Treatment Upcoming Encounters Date Type Department Care Team (Late st Contact Info) Description 10/10/2024 3:00 PM EDT Medication Management [facility] [address] [place] [address] 12/08/2024 3:15 PM EDT Office Visit [facility] OPTOMETRY [address] [place] [address] TarkaMarthaNataliia, OD [address] [place] [address] documented as of this encounter Goals Goal Patient Goal Type Associated Problems Recent Progress Patient-Stated? Author Blood Pressure < 140/90 Blood Pressure 168/80(2024 11:20 AM EDT) No Rony Wong, PharmHeath Hemoglobin A1c < 7 Result Component 6.3( 10:48 AM EDT) No Rony Wong, PharmD documented as of this encounter Visit Diagnoses Not on filedocumented in this encounter Additional Health Concerns Assessment Noted Time PHQ-9 Depression Total Score: 14 024 12:07 PM EST documented as of this encounter Care Teams Pathology Technologist Relationship Specialty Start Date End Date Silvia Flores MD [address] [place], [place] [phone] PCP - General Family Medicine 12/31/21 Rony Wong, LorrieD [address] [place], [place] [phone] Pharmacist Internal Medicine 06/10/23 Wendi Ibrahim, DULCE MARIA [address] [place] [id number] Registered Nurse Family Medicine 09/26/24 Blanca Leary 09/26/24 [facility] 12/16/22 documented as of this encounter
--- OUTSIDE RECORDS SUMMARY | 2024-09-26 13:04 | XMS_ITS | Encounter Summary ---
Author Organization [employer] Address [address] [facility] 7t [place] [address] Care Team Providers Care Associate Programmer Name Role Phone Silvia Flores MD Primary Care Provider Rony Wong PharmD Unavailable [phone] Wendi Ibrahim RN Unavailable [phone] Blanca Leary Unavailable Reason for Visit * Reason Onset Date Comments Hospital Follow-up 05/05/2023 Encounter Details Date Type Department Care Team ([facility] st Contact Info) Description 05/05/2023 Telephone [facility] [address] [place], [place] [phone] Silvia Flores MD [address] [place], [place] [phone] Hospital Follow-up Social History Tobacco Use Types [...] from pt requesting a HDF appt. Hospital: [facility] (Rehab) Date of admission: 04/27 Discharge date: 05/04 Diagnosed: opoid use Please contact katlyn at [phone] documented in this encounter Plan of Treatment Upcoming Encounters Date Type Department Care Team (Late st Contact Info) Description 10/10/2024 3:00 PM EDT Medication Management [facility] [address] [place] [address] 12/08/2024 3:15 PM EDT Office Visit [facility] OPTOM[facility] [address] [place] [address] Nataliia Mcdonald, OD [address] [place] [address] documented as of this encounter Visit Diagnoses Not on filedocumented in this encounter Additional Health Concerns Assessment Noted Time PHQ-9 Depression Total Score: 23 023 11:44 AM EST documented as of this encounter Care Teams Associate Programmer Relationship Specialty Start Date End Date Silvia Flores MD [address] [place], [place] [phone] PCP - General Family Medicine 12/31/21 Rony Wong, LorrieD [address] [place] [address] [phone] Pharmacist Internal Medicine 06/10/23 Wendi Ibrahim, DULCE MARIA [address] [place] [address] Registered Nurse Family Medicine 09/26/24 Blanca Leary 09/26/24 [facility] 12/16/22 documented as of this encounter
--- OUTSIDE RECORDS SUMMARY | 2024-09-26 13:04 | XMS_ITS | Encounter Summary ---
Author Organization [employer] Address [address] [facility] 7t [place] [address] Care Team Providers Care Scheduling Representative Name Role Phone Silvia Flores MD Primary Care Provider Rony Wong PharmD Unavailable [phone] Wendi Ibrahim RN Unavailable [phone] Blanca Leary Unavailable Reason for Visit * Reason Comments Care Coordination C3 chart review Encounter Details Date Type Department Care Team (Latest Contact Info) Description 09/26/2024 Patient Outreach [facility] [address] [place], [place] [phone] Silvia Flores MD [address] [place], [place] [phone] Care Coordination (C3CM chart review) Social History Tobacco Use Types Packs/Day Years [...] AM EDT documented as of this encounter Progress Notes * Wendi Ibrahim RN - 09/26/2024 9:32 AM EDT SHANNON Ibrahim RN, performed chart review, in anticipation of initial assessment with patient, as patient has stratified for C3 Adult Complex Care through the ADT feed. History significant for type 2 DM, hypertension, opioid use disorder, urinary incontinence, cardiomyopathy. Specialists include cardiology, orthopaedic surgery, physical therapy, VNA services through [facility]. Pt has no ED visits within the last 12 months include . Patient was referred by PCP to care management to assist pt with coordination of care and to connect pt to resources. Last appointment in PCP office on 09/18/2024. No future appointment scheduled at this time. documented in this encounter Plan of Treatment Upcoming Encounters Date Type Department Care Team (Late st Contact Info) Description 10/10/2024 3:00 PM EDT Medication Management [address] [address] 12/08/2024 3:15 PM EDT Office Visit [facility] OPTOMETRY [address] [place], [place] [phone] Nataliia Mcdonald, OD [address] [place] [address] documented as of this encounter Goals Goal [...] documented as of this encounter Care Teams Scheduling Representative Relationship Specialty Start Date End Date Silvia Flores MD [address] [place] [address] PCP - General Family Medicine 12/31/21 Rony Wong PharmD [address] [place] [address] Pharmacist Internal Medicine 06/10/23 Wendi Ibrahim RN [address] [place] [address] Registered Nurse Family Medicine 09/26/24 Blanca Leary 09/26/24 [facility] 12/16/22 documented as of this encounter
--- OUTSIDE RECORDS SUMMARY | 2024-09-26 13:04 | XMS_ITS | Encounter Summary ---
Author Organization [employer] Address [address] [facility] 7t [place] [address] Care Team Providers Care Lap Runner Name Role Phone Silvia Flores MD Primary Care Provider Rony Wong PharmD Unavailable [phone] Wendi Ibrahim RN Unavailable Blanca Leary Unavailable Encounter Details Date Type Department Care Team (Late st Contact Info) Description 09/26/2024 Patient Outreach [facility] MEDICINE 230 [place], [place] [phone] Silvia Flores MD [address] [place], [place] [phone] Social History Tobacco Use Types Packs/Day Years [...] the past 12 months, has t he [employer] gas, oil or water company threatened to [...] Description 10/10/2024 3:00 PM EDT Medication Management [facility] MED[facility]INE [address] [place] [address] 12/08/2024 3:15 PM EDT Office Visit [facility] OPTOMETRY [address] [place] [address] Tarka Nataliia, OD [address] [place] [address] documented as of this encounter Goals Goal [...] documented as of this encounter Care Teams Lap Runner Relationship Specialty Start Date End Date Silvia Flores MD [address] [place] [address] PCP - General Family Medicine 12/31/21 Rony Wong, PharmD [address] [place] [address] [phone] Pharmacist Internal Medicine 06/10/23 Wendi Ibrahim, DULCE MARIA [address] [place] [address] Registered Nurse Family Medicine 09/26/24 Blanca Leary 09/26/24 [facility] 12/16/22 documented as of this encounter
--- OUTSIDE RECORDS SUMMARY | 2024-09-26 13:04 | XMS_ITS | Encounter Summary ---
Author Organization [employer] Address [address] [place] [address] 7t [place] [address] Care Team Providers Care Telephone Service Representative Name Role Phone Silvia Flores MD Primary Care Provider [phone] Rony Wong PharmD Unavailable [phone] Wendi Ibrahim RN Unavailable [phone] Blanca Leary Unavailable Reason for Referral * Consultation (Routine) - Closed Specialty Diagnoses / Procedures Referred By Crystal echeverria Referred To Contact Physical Therapy Diagnoses Encounter for wheelchair assessment Silvia Flores MD [address] [place] [address] Phone: tel: fax: Referral ID Status Reason Start Date Expiration Date V isits Requested Visits Authorized [id number] Closed Specialty Services Required 09/20/2024 09/20/2025 1 1 Encounter Details Date Type Department Care Team (Late st Contact Info) Description 09/20/2024 Orders Only [facility] MED[facility]INE [address] [place] [address] Silvia Flores MD [address] [place], [place] [phone] Encounter for wheelchair assessment (Primary Dx) Social History Tobacco Use Types [...] Management [facility] [address] [place], [place] [phone] 12/08/2024 3:15 PM EDT Office Visit [facility] OPTOMETRY [address] [place] [address] Nataliia Mcdonald, OD [address] [place] [address] Scheduled Referrals Name Type Priority Associated Diagnoses Orde r Schedule Referral to Physical Therapy Outpatient Referral Routine Encounter for wheelchair assessment Expected: 09/20/2024 (Approximate), Expires: 09/20/2025 documented as of this encounter Goals Goal Patient Goal Type Associated Problems Recent Progress Patient-Stated? Author Blood Pressure < 140/90 Blood Pressure 168/80(2024 11:20 AM EDT) No Rony Wong, PharmHeath Hemoglobin A1c < 7 Result Component 6.3( 10:48 AM EDT) No Rnoy Wong, PharmD documented as of this encounter Visit Diagnoses Diagnosis Encounter for wheelchair assessment- Primary documented in this encounter Additional Health Concerns Assessment Noted Time PHQ-9 Depression Total Score: 14 024 12:07 PM EST documented as of this encounter Care Teams Telephone Service Representative Relationship Specialty Start Date End Date Silvia Flores MD [address] [place] [address] PCP - General Family Medicine 12/31/21 Rony Wong, PharmD [address] [place] [address] Pharmacist Internal Medicine 06/10/23 Wendi Ibrahim, DULCE MARIA [address] [place] [address] Registered Nurse Family Medicine 09/26/24 Blanca Leary 09/26/24 [facility] 12/16/22 documented as of this encounter
--- OUTSIDE RECORDS SUMMARY | 2024-09-26 13:04 | XMS_ITS | Encounter Summary ---
Author Organization [employer] Address [address] [facility] 7t [place] [address] Care Team Providers Care Chart Picker Name Role Phone Silvia Flores MD Primary Care Provider [phone] Rony Wong PharmD Unavailable Wendi Ibrahim RN Unavailable [phone] Blanca Leary Unavailable Reason for Visit * Reason Onset Date Comments FYI 01/14/2023 Encounter Details Date Type Department Care Team (Late st Contact Info) Description 01/14/2023 Telephone [facility] MED[facility] [address] [place], [place] [phone] Silvia Flores MD [address] [place], [place] [phone] FYI Social History Tobacco Use Types Packs/Day [...] EDT Tc from Bobby from [facility] calling to report a fall pt had on 01/13/23 . Inform ptis fine no symptoms at this time . documented in this encounter Plan of Treatment Upcoming Encounters Date Type Department Care Team (Late st Contact Info) Description 10/10/2024 3:00 PM EDT Medication Management [facility] [address] [place] [address] 12/08/2024 3:15 PM EDT Office Visit [facility] OPTOMETRY [address] [place], [place] [phone] Nataliia Mcdonald, OD [address] [place] [address] documented as of this encounter Visit Diagnoses Not on filedocumented in this encounter Additional Health Concerns Assessment Noted Time PHQ-9 Depression Total Score: 0 08/26/19 10:59 AM EDT documented as of this encounter Care Teams Chart Picker Relationship Specialty Start Date End Date Silvia Flores MD [address] [place] [address] PCP - General Family Medicine 12/31/21 Rony Wnog, LorrieD [address] [place] [address] Pharmacist Internal Medicine 06/10/23 Wendi Ibrahim, DULCE MARIA [address] [place] [address] Registered Nurse Family Medicine 09/26/24 Blanca Leary 09/26/24 [facility] 12/16/22 documented as of this encounter
--- OUTSIDE RECORDS SUMMARY | 2024-09-26 13:04 | XMS_ITS | Encounter Summary ---
Author Organization [employer] Address 75 [facility] 7t [place] [address] Care Team Providers Care Industrial Fabric Cutter Name Role Phone Silvia Flores MD Primary Care Provider Rony Wong PharmD Unavailable [phone] Wendi Ibrahim RN Unavailable [phone] Blanca Leary Unavailable Reason for Visit * Reason Comments Care Coordination C3/W Blanca mcgarry, Chart review Encounter Details Date Type Department Care Team (Latest Contact Info) Description 09/26/2024 Patient Outreach [facility] [address] [place], [place] [phone] Silvia Flores MD [address] [place], [place] [phone] Care Coordination (C3CM/LIZETT Leary, Chart review ) Social History Tobacco Use Types Packs/Day Years [...] as of this encounter Progress Notes * Blanca Leary - 09/26/2024 9:43 AM EDT LIZETT Leary reviewed chart review completed by SHANNON Ibrahim RN: SHANNON Ibrahim RN, performed chart review, in anticipation of initial assessment with patient, as patient has stratifiedfor C3 Adult Complex Care through the ADT feed. History significant for type 2 DM, hypertension, opioid use disorder, urinary incontinence, cardiomyopathy. Specialists include cardiology, orthopaedicsurgery, physical therapy, VNA services through [facility]. Pt has no ED visits within the [...] Description 10/10/2024 3:00 PM EDT Medication Management [facility] [address] [place] [address] 12/08/2024 3:15 PM EDT Office Visit [facility] OPTOMETRY [address] [place] [address] Nataliia Mcdonald, OD [address] [place] [address] documented as of this encounter Goals Goal [...] documented as of this encounter Care Teams Industrial Fabric Cutter Relationship Specialty Start Date End Date Silvia Flores MD [address] [place] [address] PCP - General Family Medicine 12/31/21 Rony Wong, PharmD [address] [place] [address] Pharmacist Internal Medicine 06/10/23 Wendi Ibrahim, DULCE MARIA [address] [place] [address] Registered Nurse Family Medicine 09/26/24 Blanca Leary 09/26/24 [facility] 12/16/22 documented as of this encounter
--- OUTSIDE RECORDS SUMMARY | 2024-09-26 13:04 | XMS_ITS | Encounter Summary ---
Author Organization [employer] Address 75 [facility] 7t [place] [address] Care Team Providers Care Training Officer Name Role Phone Silvia Flores MD Primary Care Provider [phone] Rony Wong PharmD Unavailable [phone] Wendi Ibrahim RN Unavailable [phone] Blanca Leary Unavailable Reason for Referral * Consultation (Routine) - Authorized Specialty Diagnoses / Procedures Referred By Contanel t Referred To Contact Pharmacy Diagnoses Hypertension Wendi Lomas MD [address] [place] [address] Phone: tel: fax: Referral ID Status Reason Start Date Expiration Date Visits Requested Visits Authorized [id number] Authorized Continuity of Care 09/19/2024 09/19/2025 6 6 Encounter Details Date Type Department Care Team (Late st Contact Info) Description 09/18/2024 Orders Only [facility] MEDICINE [address] [place], [place] [phone] Wendi Lomas MD [address] [place], [place] [phone] Hypertension (Primary Dx) Social History Tobacco Use Types [...] Description 10/10/2024 3:00 PM EDT Medication Management [facility] MEDICINE [address] [place] [address] 12/08/2024 3:15 PM EDT Office Visit [facility] OPTOMETRY [address] [place] [address] Tommykishan Nataliia, OD [address] [place] [address] Scheduled Referrals Name Type Priority Associated Diagnoses Orde r Schedule Referral to Pharmacy MTM Outpatient Referral Routine Hypertension Ordered: 09/19/2024 documented as of this encounter Goals Goal Patient Goal Type Associated Problems Recent Progress Patient-Stated? Author Blood Pressure < 140/90 Blood Pressure 168/80(2024 11:20 AM EDT) No Rony Wong PharmD Hemoglobin A1c < 7 Result Component 6.3( 10:48 AM EDT) No Rony Wong PharmD documented as of this encounter Visit Diagnoses Diagnosis Hypertension- Primary Unspecified essential hypertension documented in this encounter Additional Health Concerns Assessment Noted Time PHQ-9 Depression Total Score: 14 024 12:07 PM EST documented as of this encounter Care Teams Training Officer Relationship Specialty Start Date End Date Siliva Flores MD [address] [place] [address] PCP - General Family Medicine 12/31/21 Rony Wong PharmD [address] [place] [address] Pharmacist Internal Medicine 06/10/23 Wendi Ibrahim RN [address] [place] [address] Registered Nurse Family Medicine 09/26/24 Blanca Leary 09/26/24 [facility] 12/16/22 documented as of this encounter
--- OUTSIDE RECORDS SUMMARY | 2024-09-26 13:04 | XMS_ITS | Encounter Summary ---
Author Organization [employer] Address [address] [facility] [address] 7t [place] [address] Care Team Providers Care Retail Commission Sales Associate Name Role Phone Silvia Flores MD Primary Care Provider Rony Wong PharmD Unavailable [phone] Wendi Ibrahim RN Unavailable [phone] Blanca Leary Unavailable Encounter Details Date Type Department Care Team (Late st Contact Info) Description 06/03/2023 Orders Only [facility] MEDICINE [address] [place] [address] Lucero Scott, DULCE MARIA Opioid type dependence, continuous (CMS/HCC) (Primary Dx) [...] Description 10/10/2024 3:00 PM EDT Medication Management [facility] [address] [place] [address] 12/08/2024 3:15 PM EDT Office Visit [facility] OPTOMETRY [address] [place] [address] Tarka, Nataliia, OD [address] [place] [address] documented as of this encounter Visit Diagnoses Diagnosis Opioid type dependence, continuous (CMS/[facility])- Primary Opioid type dependence, continuous documented in this encounter Additional Health Concerns Assessment Noted Time PHQ-9 Depression Total Score: 23 023 11:44 AM EST documented as of this encounter Care Teams Retail Commission Sales Associate Relationship Specialty Start Date End Date Silvia Flores MD [address] [place] [address] PCP - General Family Medicine 12/31/21 Rony Wong, LorrieD [address] [place] [address] Pharmacist Internal Medicine 06/10/23 Wendi Ibrahim RN [address] [place] [phone] Registered Nurse Family Medicine 09/26/24 Blanca Leary 09/26/[address] [facility] 12/16/22 documented as of this encounter
--- OUTSIDE RECORDS SUMMARY | 2024-09-26 13:04 | XMS_ITS | Clinical Summary ---
Author Organization [employer] Address [address] [facility] [address] [place] [address] Care Team Providers Care Nurse Staff [facility] Name Role Phone Silvia Flores MD Primary Care Provider [phone] Rony Wong PharmD Unavailable [phone] Wendi Ibrahim RN Unavailable [phone] Blanca Leary Unavailable Allergies Active Allergy Reactions Criticality Noted Date Comments Penicillin V 05/23/2010 Other reaction(s): rash Medications * This document contains information received from the source organization and may not represent a complete record from that organization. dulaglutide (Trulicity) 3 MG/0.5ML solution pen-injector Inject 3 mg under the skin 1 (one) time per week. 4 each 023 Active Blood Glucose Monitoring Suppl (FreeStyle Lite) w/Device kitIndications: Type 2 diabetes mellitus with hyperglycemia, with long-term current use of insulin ([facility]) 1 Device 3 times daily. Check blood [...] hyperglycemia, with long-term current use of insulin ([facility]) Check blood sugar three times daily, before meals 100 each Active FreeStyle lancetsIndicati ons:Type 2 diabetes mellitus with hyperglycemia, with long-term current use of insulin ([facility]) 1 each by Other route 3 times daily. Check blood sugar three times daily before meals 100 each 12 024 Active gabapentin (Neurontin) 300 MG capsule Take 1 capsule (300 mg) by mouth 3 times daily. 90 capsule 3 Active glucose 4 g chewable tabletIndicatio ns:Type 2 diabetes mellitus with hyperglycemia, with long-term current use of insulin ([facility]) Chew 4 tablets by mouth as needed [...] EVERY MORNING (for diabetes) 90 tablet 3 024 Active bisacodyl (Dulcolax) 10 MG suppository UNWRAP AND INSERT 1 SUPPOSITORY RECTALLY EVERY DAY NEEDED FOR CONSTIPATION 024 Active atorvastatin (Lipitor) 80 MG tablet TAKE 1 TABLET BY MOUTH AT BEDTIME 90 tablet 024 Active losartan (Cozaar) 50 MG tablet TAKE 1 TABLET BY MOUTH EVERY MORNING 90 tablet 3 025 Active aspirin (Aspirin EC Adult Low Dose) [...] hyperglycemia, with long-term current use of insulin ([facility]) USE TO TEST BLOOD SUGAR THREE TIMES A DAY 100 each 025 Active insulin pen needle (UltiCare Short Pen [place]) 31G X 8 mm miscIndications :Type 2 diabetes mellitus with hyperglycemia, with long-term current use of insulin ([facility]) USE WITH INSULIN FIVE TIMES DAILY DIRECTED [...] hyperglycemia, with long-term current use of insulin ([facility]) Administer 30 units twice daily 18 mL 11 Active spironolactone (Aldactone) 25 MG tabletIndicatio ns:Primary hypertension Take 1 tablet (25 mg) by mouth Once per day. 90 tablet 3 Active Nutritional Supplements (Boost High Protein) liquid Take 1 Can by mouth 2 times daily. Case of vanilla Boost 3000 mL 025 2025 Active Lantus SoloStar 100 UNIT/ML penIndications: Type 2 diabetes mellitus with hyperglycemia, with long-term current use of insulin ([facility]) Administer 30 units twice daily 18 mL 11 024 2024 Discontinued(R eorder (will not trigger notification to Pharmacy)) spironolactone (Aldactone) 25 MG tabletIndicatio ns:Primary hypertension Take 1 tablet (25 mg) by mouth in the morning. 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 Follow up with [facility] [place]: Recommended for follow-up: during obat appts 2. Patient goal is to become sober and improve mental health 3. Behavioral Recommendations a. Ind. Therapy, referral will be submitted. b. Medication Management, referral will be submitted c. Keeping Obat appts d. [facility] contact number for support. Type 2 diabetes mellitus wit h microalbuminuria, with long-term current use of insulin 10/05/2022 Hypokalemia 10/05/2022 Assessment & Plan (05/28/2023 7:09 AM EST): - on KCl 20 mEq daily - furosemide was previously discontinued and changed to spironolactone - discontinue KCl and furosemide - restart MRA - check K Urinary incontinence 09/08/2022 Assessment & Plan (2024 7:10 AM EDT): - continue tamsulosin 0.4 mg daily - 04/29/21 PSA 0.16 - written script for pull-ups / briefs, and urinal Assessment & Plan (07/25/2023 6:51 PM EDT): [...] ejection fract ion) 08/25/2022 Assessment & Plan (2024 7:08 AM EDT): - Following [facility]ayer, last seen 10/13/21 - Cardiac cath on 11/04/22, R-dominant circulation, mild LAD, moderate OM1 and RCA disase - TTE 11/04/22 EF 25-30%, recommended outpatient cardiac MRI - continue current medications - previously on carvedilol which was discontinued because of stimulant use disorder Assessment & Plan (07/25/2023 6:48 PM EDT): - Following [facility] Sprayer, last seen 10/13/21 - Cardiac cath on 11/04/22, R-dominant circulation, mild LAD, moderate OM1 and RCA disase - TTE 11/04/22 EF 25-30%, recommended outpatient cardiac MRI - continue current medication - previously on carvedilol which was discontinued because of stimulant use disorder - scheduled a follow-up with [facility] Cardiology in August 2023; emphasized the importance of keeping appt Assessment & Plan (05/28/2023 6:47 AM EST): - Following [facility] Sprayer, last seen 10/13/21 - Cardiac cath on 11/04/22, R-dominant circulation, mild LAD, moderate OM1 and RCA disase - TTE 11/04/22 EF 25-30%, recommended outpatient cardiac MRI - continue current medication - previously on carvedilol which was discontinued because of stimulant use disorder - schedule a follow-up with [facility] Cardiology Assessment & Plan (12/31/2022 6:33 AM EDT): - Following [facility] Sprayer, last seen 10/13/21 - Cardiac cath on 11/04/22, R-dominant circulation, mild LAD, moderate OM1 and RCA disase - TTE 11/04/22 EF 25-30%, recommended outpatient cardiac MRI - continue current medication - consider SGLT-2 for DM - schedule a follow-up with [facility] Cardiology Assessment & Plan (09/08/2022 6:16 AM EDT): - Following [facility] Sprayer, last seen 10/13/21 - Pt was scheduled for Cardiac Cath, but missed dt transportation issues; will request rescheduling after he has reliable transportation - He has rn case mgr from [facility], advised to reschedule appt with his Specialist [...] support Wheelchair dependence 08/05/2022 Assessment & Plan (09/19/2024 7:45 AM EDT): - referred to physical therapy to evaluate for motorized wheelchair or scooter Assessment & Plan (07/25/2023 6:56 PM EDT): [...] sent uber for him to go to [facility] in [place]. PLAN: New/Additional Services needed: Off-site services for Behavioral Health Integration Plan: External OP therapy referral and OP psychiatry Referral Patient Self Plan: Patient to reach out to [facility] team as needed and Patient to complete Detox Program, Patient to reach out to this signwriter after Detox and Ptn to reconnect with . Chronic headache disorder 05/20/2012 Type 2 diabetes mellitus 05/20/2012 Assessment & Plan (2024 7:09 AM EDT): - A1c 6.3% 09/18/24, improved from A1C 6.5% 07/25/23 - Continue working on lifestyle modifications - Continue metformin ER 500 mg bid - Continue empagliflozin 10 mg daily - Continue Lantus 30 units daily - Continue dulaglutide 3.0 mg weekly - Treatment Hx: Previously on glyburide. - Microalbumin/Cr: 05/27/23 UACR 29, borderline - Lipids: 05/27/23 - Eye exam: due - Foot exam/peripheral pulses: decreased sensation without ulceration on 08/25/22 Assessment & Plan (07/25/2023 6:54 PM EDT): [...] retinopathy 05/20/2012 Hyperlipidemia 05/20/2012 Assessment & Plan (2024 7:06 AM EDT): - Last Lipid Profile 05/28/23 - Continue atorvastatin 80 mg qhs - cont working on lifestyle modifications Assessment & Plan (07/25/2023 6:55 PM EDT): [...] lifestyle modifications Hypertension 05/20/2012 Assessment & Plan (2024 7:05 AM EDT): - Goal BP <140/90 per JNC-8, < 130/80 per ACC/AHA - BP elevated today - previously co-managed with supervisor microwave and pharmacist - Continue working on lifestyle [...] months or sooner prn Assessment & Plan (07/25/2023 6:50 PM EDT): - Goal BP <140/90 per JNC-8, < 130/80 per ACC/AHA - BP within acceptable range - Co-managed with supervisor microwave and pharmacist - Continue working on lifestyle [...] Encounters Date Type Department Care Team Description 09/26/2024 Patient Outreach [facility] [address] [place] [id number] Silvia Flores MD Care Coordination (C3/CHW TAO Han initial assessment scheduled) 09/26/2024 Patient Outreach [facility] [address] [place] [id number] Silvia Flores MD Care Coordination ([facility]/W Blanca Leary, Chart review ) 09/26/2024 Patient Outreach [facility] [address] [place] [address] Silvia Flores MD Care Coordination ([facility] chart review) 09/26/2024 Patient Outreach [address] [address] Silvia Flores MD 09/25/2024 Telephone [facility] [address] [place] [address] Silvia Flores MD 09/25/2024 Refill [facility] [address] [place], [place] [id number] Silvia Flores MD 2024 Results Follow-Up [address] [address] Silvia Flores MD XR Foot 3+ Views Right 09/20/2024 Orders Only [address] [address] Silvia Flores MD Encounter for wheelchair assessment (Primary Dx) 09/18/2024 10:30 AM EDT Office Visit [address] [address] Silvia Flores MD Routine general medical examination at a health care facility (Primary Dx); Primary hypertension; Type 2 diabetes mellitus with hyperglycemia, with long-term current use of insulin ([facility]); Type 2 diabetes mellitus with microalbuminuria, with long-term current use of insulin ([facility]); HFrEF (heart failure with reduced ejection fraction) ([facility]); Left hand pain; Chronic pain of both feet; Routine screening for STI (sexually transmitted infection); Right hand pain; Wheelchair dependence; Urinary incontinence, unspecified type; Mixed hyperlipidemia; Abscess of left hand; Opioid use disorder; Mood disorder ([facility]); Food insecurity; At risk for nutrition problem; Encounter for wheelchair assessment 09/18/2024 Orders Only [address] [address] Wendi Lomas MD Hypertension (Primary Dx) 09/18/2024 Travel 09/15/2024 Telephone [facility] [address] [place] [address] Silvia Flores MD CHART PREP 09/12/2024 Patient Outreach [facility] [address] [place] [address] Silvia Flores MD Pre-visit Planning (Pre visit planning LVM ) 09/08/2024 Refill [facility] [address] [place] [address] Silvia Flores MD Type 2 diabetes mellitus with hyperglycemia, with long-term current use of insulin (CMS/HCC); Primary hypertension 08/31/2024 Telephone [facility] [address] [place] [address] Silvia Flores MD 08/09/2024 Refill [facility] [address] [place] [address] Silvia Flores MD 07/26/2024 Telephone [facility] [address] [place] [address] Silvia Flores MD novolog 07/21/2024 Population Health Risk Score [facility] () Department [address] [place] [phone] Provider, Population Health Generic 07/05/2024 Refill [facility] [address] [place] [address] Silvia Flores MD Type 2 diabetes mellitus with hyperglycemia, with long-term current use of insulin (CMS/HCC) 07/03/2024 Refill [facility] [address] [place] [address] Silvia Flores MD from Last 3 Months Immunizations Immunization Administration Dates Next Due Hep A, Adult [...] 05/27/2023 9:19 AM EST Plan of Treatment Upcoming Encounters Date Type Department Care Team (Late st Contact Info) Description 10/10/2024 3:00 PM EDT Medication Management [facility] [address] [place] [address] 12/08/2024 3:15 PM EDT Office Visit [facility] [address] [place] [address] Nataliia Mcdonadl, OD [address] [place] [address] Health Maintenance Due Date Last Done Comments CT Colonography 1965 Colonoscopy 1965 Colorectal Cancer Screening 1965 FIT DNA/Cologuard 1965 FIT 1965 FOBT 1965 Sigmoidoscopy 1965 Eye Exam 09/24/1975 Zoster Vaccines (2 of 2) 08/05/2023 06/10/2023 COVID-19 Vaccine ( season) 2024 05/27/2023, 05/29/2022, 08/27/2021, Additional history exists Influenza Vaccine (#1) 2024 , 01/21/2022, 07/14/2021, Additional history exists Lipid Panel 05/27/2024 05/27/2023, 12/08, 08/25/2022, Additional history exists Depression Screening 06/10/2024 06/10/2023, 06/10/19 24 SDOH Screening 06/30/2024 06/30/2023 Diabetes: Hemoglobin A1C 03/21/2025 025, 05/27/2023, 12/22/2022, Additional history exists Alcohol/Substance Use Screening 09/18/2025 09/18/2024 Diabetes: Foot Exam 09/18/2025 09/18/2024, 09/18/2024, 09/18/2024, Additional history exists Disability Screening 09/18/2025 09/18/2024 Tobacco Screening 2025 2024 DTaP/Tdap/Td Vaccines (3 - Td or Tdap) [...] patient's age to complete this topic Meningococcal B Vaccine Aged Out No l onger eligible based on patient's age to complete [...] Procedure Name Priority Date/Time Associated Diagnosis Comments XR FOOT 3+ VIEWS LEFT Routine 09/18/2024 11:38 AM EDT Chronic pain of both feet XR FOOT 3+ VIEWS RIGHT Routine 09/18/2024 11:38 AM EDT Chronic pain of both feet XR HAND 3+ VIEWS LEFT Routine 09/18/2024 11:38 AM EDT Left hand pain POCT GLUCOSE Routine 09/18/2024 10:49 AM EDT Type 2 diabetes mellitus with hyperglycemia, with long-term current use of insulin ([facility]) POCT GLYCOSYLATED HEMOGLOBIN (HGB A1C) Routine 09/18/2024 10:48 AM EDT Type 2 diabetes mellitus with hyperglycemia, with long-term current use of insulin ([facility]) LIPID PANEL WITH REFLEX TO DIRECT LDL Routine 05/27/2023 10:16 AM EST Type 2 diabetes mellitus with hyperglycemia, with long-term current use of insulin ([facility]) HEPATITIS C ANTIBODY REFLEX Routine 12/22/2022 10:24 AM EDT HIV ANTIBODY/ANTIGEN ([place] [facility]) Routine 12/22/2022 10:24 AM EDT from Last 3 Months or Most Recently Relevant to Health Maintenance Results * XR Foot 3+ Views Right (09/18/2024 11:38 AM EDT) Anatomical Region Laterality Modality Lower Extremities, Foot Right [facility] 09/18/2024 11:3 8 AM EDT Narrative 09/18/2024 2:31 PM EDT ? [facility] ?[address] ?[place] [address] ?XRay Report ? Signed ? Patient: Petrona,David ?MR#: [id number] ?? [id number] ? : 1965 ?Acct:[id number] ? Age/Sex: 58 / M ?ADM Date: 09/18/24 ? Loc: HO.HHCL ? Attending Dr: Silvia Flores MD ? Ordering Physician: Silvia Flores MD ?? Date of Service: 09/18/24 ?? Procedure(s): XR foot RT min 3V ?? Accession Number(s): [id number] ? cc: Silvia Flores MD ? EXAMINATION: ?? XR FOOT, RIGHT ? CLINICAL INFORMATION: ?? bilateral foot pain and swelling ? COMPARISON: ?? None available. ? TECHNIQUE: ?? AP, lateral, and oblique views of the right foot. ? FINDINGS: ?? Patchy osteopenia present. ?? No fracture, dislocation, or suspicious bone lesion. ?? There is normal alignment. ?? There is a normal plantar arch. ?? Mild degenerative changes in the intertarsal joints and tarsometatarsal ?? joints. ?? Minimal arthritis at the first MTP joint. ? There is a moderate-sized dorsal calcaneal spur. ? There are diffuse vascular calcifications throughout the soft tissues. ? There is mild diffuse subcutaneous soft tissue edema of the right lower ?? extremity. ? XR/XR foot RT min 3V ?? IMPRESSION: ?? No acute bony findings of the right foot. ? Electronically signed by: ??Yuri Vegas MD ??09/18/2024 02:29 PM EDT RP ? Dictated By: ?Yuri Vegas MD ? Signed By: ?<Electronically signed by Yuri Vegas MD in OV> ?09/18/24 1429 ? DD/ 1138 ? TD/TT: 09/18/24 1200 ? It Software Developer: ? Procedure Note Richard Godinez - 09/18/[address] [address] XRay Report Signed Patient: David RussMR#: [id number] : 1965Acct:[id number] Age/Sex: 58 / MADM Date: 09/18/24 Loc: HO.HHCL Attending Dr: Silvia Flores MD Ordering Physician: Silvia Flores MD Date of Service: 09/18/24 Procedure(s): XR foot RT min 3V Accession Number(s): [id number] cc: Silvia Flores MD EXAMINATION: XR FOOT, RIGHT CLINICAL INFORMATION: bilateral foot pain and swelling COMPARISON: None available. TECHNIQUE: AP, lateral, and oblique views of the right foot. FINDINGS: Patchy osteopenia present. No fracture, dislocation, or suspicious bone lesion. There is normal alignment. There is a normal plantar arch. Mild degenerative changes in the intertarsal joints and tarsometatarsal joints. Minimal arthritis at the first MTP joint. There is a moderate-sized dorsal calcaneal spur. There are diffuse vascular calcifications throughout the soft tissues. There is mild diffuse subcutaneous soft tissue edema of the right lower extremity. XR/XR foot RT min 3V IMPRESSION: No acute bony findings of the right foot. Electronically signed by: Yuri Vegas MD 09/18/2024 02:29 PM EDT Dictated By: Yuri Vegas MD Signed By: <Electronically signed by Yuri Vegas MD in OV> 09/18/24 1429 DD/ 1138 TD/TT: 09/18/24 1200 It Software Developer: Silvia Flores MD IMG XR PROCEDURES Final Result * XR Foot 3+ Views Left (09/18/2024 11:38 AM EDT) Anatomical Region Laterality Modality Lower Extremities, Foot Left Radiogra phic Imaging 09/18/2024 11:3 8 AM EDT Narrative 09/18/2024 2:33 PM EDT ? [facility] ?[address] ?[place] [address] ?XRay Report ? Signed ? Patient: Petrona,David ?MR#: [id number] ?? [id number] ? : 1965 ?Acct:[id number] ? Age/Sex: 58 / M ?ADM Date: 05/12/25 ? Loc: HO.HHCL ? Attending Dr: Silvia Flores MD ? Ordering Physician: Silvia Flores MD ?? Date of Service: 09/18/24 ?? Procedure(s): XR foot LT min 3V ?? Accession Number(s): [id number] ? cc: Silvia Flores MD ? EXAMINATION: ?? XR FOOT, LEFT ? CLINICAL INFORMATION: ?? biltearl foot pain and swelling ? COMPARISON: ?? None available. ? TECHNIQUE: ?? AP, lateral, and oblique views of the left foot. ? FINDINGS: ?? Patchy osteopenia present. ?? No fracture, dislocation, or suspicious bone lesion. ?? There is normal alignment. ?? There is a normal plantar arch. ?? Mild degenerative changes in the intertarsal joints and tarsometatarsal ?? joints. ?? Minimal arthritis at the first MTP joint. ? There are moderate-sized dorsal and small plantar calcaneal spurs. ? There are diffuse vascular calcifications throughout the soft tissues. ? There is mild diffuse subcutaneous soft tissue edema of the right lower ?? extremity. ? XR/XR foot LT min 3V ?? IMPRESSION: ?? No acute bony findings of the left foot. ? Electronically signed by: ??Yuri Vegas MD ??09/18/2024 02:30 PM EDT RP ? Dictated By: ?Yuri Vegas MD ? Signed By: ?<Electronically signed by Yuri Vegas MD in OV> ?09/18/24 1430 ? DD/ 1138 ? TD/TT: 09/18/24 1200 ? It Software Developer: ? Procedure Note Richard Godinez - 09/18/[address] [address] XRay Report Signed Patient: David Russ#: [id number] : 1965Acct:[id number] Age/Sex: 58 / MADM Date: 09/18/24 Loc: HO.HHCL Attending Dr: Silvia Flores MD Ordering Physician: Silvia Flores MD Date of Service: 09/18/24 Procedure(s): XR foot LT min 3V Accession Number(s): [id number] cc: Silvia Flores MD EXAMINATION: XR FOOT, LEFT CLINICAL INFORMATION: biltearl foot pain and swelling COMPARISON: None available. TECHNIQUE: AP, lateral, and oblique views of the left foot. FINDINGS: Patchy osteopenia present. No fracture, dislocation, or suspicious bone lesion. There is normal alignment. There is a normal plantar arch. Mild degenerative changes in the intertarsal joints and tarsometatarsal joints. Minimal arthritis at the first MTP joint. There are moderate-sized dorsal and small plantar calcaneal spurs. There are diffuse vascular calcifications throughout the soft tissues. There is mild diffuse subcutaneous soft tissue edema of the right lower extremity. XR/XR foot LT min 3V IMPRESSION: No acute bony findings of the left foot. Electronically signed by: Yuri Vegas MD 09/18/2024 02:30 PM EDT RP Dictated By: Yuri Vegas MD Signed By: <Electronically signed by Yuri Vegas MD in OV> 09/18/24 1430 DD/ 1138 TD/TT: 09/18/24 1200 It Software Developer: Silvia Flores MD IMG XR PROCEDURES Final Result * XR Hand 3+ Views Left (09/18/2024 11:38 AM EDT) Anatomical Region Laterality Modality Upper Extremities, Hand Left Radiogra phic Imaging 09/18/2024 11:3 8 AM EDT Narrative 09/18/2024 2:35 PM EDT ? [facility] ?[address] ?[place] [address] ?XRay Report ? Signed ? Patient: Petrona,David ?MR#: [id number] ?? [id number] ? : 1965 ?Acct:[id number] ? Age/Sex: 58 / M ?ADM Date: 05/12/25 ? Loc: HO.HHCL ? Attending Dr: Silvia Flores MD ? Ordering Physician: Silvia Flores MD ?? Date of Service: 09/18/24 ?? Procedure(s): XR hand LT min 3V ?? Accession Number(s): [id number] ? cc: Silvia Flores MD ? EXAMINATION: ??XR HAND 3 OR MORE VIEWS LEFT ? HISTORY: left hand pain, history of I T D. ??Unable to grab ? COMPARISON: There are no prior studies available for comparison. ? FINDINGS: ? Three views of the left hand are submitted. ??Osseous mineralization is ?? normal. ??There is no fracture or dislocation. ??There is mild narrowing ?? of the DIP joints. ??There are vascular calcifications. ? XR/XR hand LT min 3V ?? IMPRESSION: ? Mild narrowing of the DIP joints. ? Electronically signed by: ??Erik Britton MD ??09/18/2024 02:32 PM EDT ?? RP ? Dictated By: ?Erik Britton MD ? Signed By: ?<Electronically signed by Erik Britton MD in OV> ?09/18/24 1432 ? DD/ 1138 ? TD/TT: 09/18/24 1200 ? It Software Developer: ? Procedure Note Richard Godinez - 09/18/[address] [address] XRay Report Signed Patient: Veronica Russ#: [id number] : 1965Acct:[id number] Age/Sex: 58 / MADM Date: 09/18/24 Loc: HO.HHCL Attending Dr: Silvia Flores MD Ordering Physician: Silvia Flores MD Date of Service: 09/18/24 Procedure(s): XR hand LT min 3V Accession Number(s): [id number] cc: Silvia Flores MD EXAMINATION: XR HAND 3 OR MORE VIEWS LEFT HISTORY: left hand pain, history of I T D. Unable to grab COMPARISON: There are no prior studies available for comparison. FINDINGS: Three views of the left hand are submitted. Osseous mineralization is normal. There is no fracture or dislocation. There is mild narrowing of the DIP joints. There are vascular calcifications. XR/XR hand LT min 3V IMPRESSION: Mild narrowing of the DIP joints. Electronically signed by: Erik Britton MD 09/18/2024 02:32 PM EDT RP Dictated By: Erik Britton MD Signed By: <Electronically signed by Erik Britton MD in OV> 09/18/24 1432 DD/ 1138 TD/TT: 09/18/24 1200 It Software Developer: Silvia Flores MD IMG XR PROCEDURES Final Result * POCT glucose manually resulted (09/18/2024 10:49 [...] Media Lot # [id number] Lot# Expiration Date ,026 Blood Capillary blood specimen / Unknown 09/18/2024 10:48 AM EDT Silvia Flores MD POINT OF CARE TEST ENTER/EDIT OR DERABLES Final Result * Lipid Panel with Reflex to Direct LDL (05/27/2023 10:16 AM EST) Triglycerides 69 <150 mg/dL [facility] Comment:Desirable Triglyceri de: less than 150 mg/dLBorderline High Triglyceride 150-199 mg/dLHigh Triglyceride: 200-499 mg/dLVery High Triglyceride: greater than or equal to 5OO mg/dL Cholesterol 143 <200 mg/dL [facility] Comment:Desirable Cholestero l: less than 200 mg/dLBorderline High Cholesterol: 200-239 mg/dLHigh Cholesterol: greater than 239 mg/dL LDL Cholesterol Calculated 80 <100 mg/dL [facility] Comment:Desirable LDL: less than 100 mg/dLNear Optimal/Above Optimal LDL: 110- 129 mg/dLBorderline High LDL: 130-159 mg/dLHigh LDL: 160-189 mg/dLVery High LDL: greater than or equal to 190 mg/dL HDL Cholesterol 50 >40 mg/dL [facility] Comment:Desirable HDL: great er than 40 mg/dL Note: This HDL assay may give artificially low results in patients with liver disease. Blood 05/27/2023 10:1 6 AM EST 05/27/2023 12:00 PM EST Silvia Flores MD LAB BLOOD ORDERABLES Final Resul t Performing Organization Address [facility] Co de Phone Number [facility] [address] [place] [phone] * Hepatitis C Antibody Reflex (12/22/2022 10:24 AM EDT) Hepatitis C Antibody Nonreactive Nonreactive [facility] Comment:Antibodies to HCV no t detected; does not exclude early acuteHCV infection. 12/22/2022 10:2 4 AM EDT 12/22/2022 11:10 AM EDT Silvia Flores MD LAB BLOOD ORDERABLES Final Resul t Performing Organization Address [facility] Co de Phone Number [facility] [address] [place] [phone] * HIV Ab/Ag (DONNY ANNE) (12/22/2022 10:24 AM EDT) HIV AB/AG Nonreactive Nonreactive [facility] Comment:HIV-1 p24 Ag and/or HIV-1/HIV-2 Ab not detected.A test result that is nonreactive does not exclude thepossibility of exposure to or infection with HIV-1 and/orHIV-2. Nonreactive results in this assay for individualswith prior exposure to HIV-1 and/or HIV-2 may be due toantigen and antibody levels that are below the limit ofdetection of this assay.[employer] Mechanic HIV Ag/Ab Combo assay result andsupplemental assay results should be interpreted inconjunction with the patient's clinical presentation,history and other laboratory results. If the results areinconsistent with clinical evidence, additional testing issuggested to confirm the result. 12/22/2022 10:2 4 AM EDT 12/22/2022 11:10 AM EDT us Silvia Flores MD LAB BLOOD ORDERABLES Final Resul t [facility] [address] [place] [phone] from Last 3 Months or Most Recently Relevant to Health Maintenance Insurance [facility] STANDARD [address] [place] [id number] [address] [place] [address] Care Teams Nurse Staff Community Health Relationship Specialty Start Date End Date Silvia Flores MD [address] [place] [address] PCP - General Family Medicine 12/31/21 Rony Wong, Olesya [address] [place] [address] Pharmacist Internal Medicine 06/10/23 Wendi Ibrahim, DULCE MARIA [address] [place] [address] Registered Nurse Family Medicine 09/26/24 Blanca Leary 09/26/24 [facility] 12/16/22
--- OUTSIDE RECORDS SUMMARY | 2024-09-26 13:04 | XMS_ITS | Encounter Summary ---
Author Organization [employer] Address [address] [facility] [address] 7t [place] [address] Care Team Providers Care Slide Fasteners Inspector Name Role Phone Silvia Flores MD Primary Care Provider [phone] Rony Wong PharmD Unavailable [phone] Reason for Visit * Reason Onset Date Comments Med Refill 09/25/2024 Encounter Details Date Type Department Care Team ([facility] st Contact Info) Description 09/25/2024 Refill [facility] MED & PEDS [address] [place], [place] [phone] Silvia Flores MD [address] [place] [address] Social History Tobacco Use Types Packs/Day Years [...] encounter Miscellaneous Notes * Telephone Encounter - Renetta Noble LPN - 09/25/2024 9:21 AM EDT ----- Message from Silvia Flores MD sent at 2024 7:15 AM EDT ----- Please write script for nutritional supplement. Boost glucose control or Glucerna. Dx diabetes mellitus type 2, at risk for inadequate nutrition, and food insecurity. Thank you * Telephone Encounter - Renetta Noble LPN - 09/25/2024 9:01 AM EDT Rx generated sent to [facility] Pharmacy. documented in this encounter Plan of Treatment Upcoming Encounters Date Type Department Care Team (Late st Contact Info) Description 10/10/2024 3:00 PM EDT Medication Management [facility] MEDICINE [address] [place] [address] 12/08/2024 3:15 PM EDT Office Visit [facility] OPTOMETRY [address] [place] [address] Nataliia Mcdonald, OD [address] [place] [address] documented as of this encounter Goals Goal Patient Goal Type Associated Problems Recent Progress Patient-Stated? Author Blood Pressure < 140/90 Blood Pressure 168/80(2024 11:20 AM EDT) No Rony Wong PharmD Hemoglobin A1c < 7 Result Component 6.3( 10:48 AM EDT) No Rony Wong, Olesya documented as of this encounter Visit Diagnoses Not on filedocumented in this encounter Additional Health Concerns Assessment Noted Time PHQ-9 Depression Total Score: 14 024 12:07 PM EST documented as of this encounter Care Teams Slide Fasteners Inspector Relationship Specialty Start Date End Date Silvia Flores MD [address] [place] [address] PCP - General Family Medicine 12/31/21 Rony Wong, Olesya [address] [place] [address] Pharmacist Internal Medicine 06/10/23 [facility] 12/16/22 documented as of this encounter
--- OUTSIDE RECORDS SUMMARY | 2024-09-26 13:04 | XMS_ITS | Encounter Summary ---
Author Organization [employer] Address 75 [facility] 7t [place] [address] Care Team Providers Care Oxyhydrogen Welder Name Role Phone Silvia Flores MD Primary Care Provider [phone] Rony Wong PharmD Unavailable Wendi Ibrahim RN Unavailable [phone] Blanca Leary Unavailable Reason for Visit * Reason Onset Date Comments FYI 11/02/2022 Encounter Details Date Type Department Care Team (Late st Contact Info) Description 11/02/2022 Telephone [facility] MEDICINE [address] [place], [place] [phone] Silvia Flores MD [address] [place], [place] [phone] FYI Social History Tobacco Use Types Packs/Day [...] 11/02/2022 1:11 PM EDT Tc from [facility] calling to inform they will be starting pt's PT and OT services for 2x a day for60 days . documented in this encounter Plan of Treatment Upcoming Encounters Date Type Department Care Team (Late st Contact Info) Description 10/10/2024 3:00 PM EDT Medication Management [facility] MEDICINE [address] [place] [address] 12/08/2024 3:15 PM EDT Office Visit [facility] OPTOMETRY [address] [place], [place] [phone] Nataliia Mcdonald OD [address] [place] [address] documented as of this encounter Visit Diagnoses Not on filedocumented in this encounter Additional Health Concerns Assessment Noted Time PHQ-9 Depression Total Score: 0 08/26/19 23 10:59 AM EDT documented as of this encounter Care Teams Oxyhydrogen Welder Relationship Specialty Start Date End Date Silvia Flores MD [address] [place] [address] PCP - General Family Medicine 12/31/21 Rony Wong, LorrieD [address] [place] [address] Pharmacist Internal Medicine 06/10/23 Wendi Ibrahim RN [address] [place] [address] Registered Nurse Family Medicine 09/26/24 Blanca Leary 09/26/24 [facility] 12/16/22 documented as of this encounter
--- OUTSIDE RECORDS SUMMARY | 2024-09-26 13:04 | XMS_ITS | Encounter Summary ---
Author Organization [employer] Address 75 [facility] 7t [place] [address] Care Team Providers Care Cook Ship Name Role Phone Silvia Flores MD Primary Care Provider Rony Wong PharmD Unavailable [phone] Wendi Ibrahim RN Unavailable [phone] Blanca Leary Unavailable Reason for Visit * Reason Onset Date Comments FYI 05/28/2023 Encounter Details Date Type Department Care Team (Late st Contact Info) Description 05/28/2023 Telephone [facility] MEDICINE [address] [place], [place] [phone] Silvia Flores MD [address] [place], [place] [phone] FY Social History Tobacco Use Types Packs/Day Years [...] on the name of the home care. [facility] Bobby RN [phone] documented in this encounter Plan of Treatment Upcoming Encounters Date Type Department Care Team (Late st Contact Info) Description 10/10/2024 3:00 PM EDT Medication Management [facility] MEDICINE [address] [place] [address] 12/08/2024 3:15 PM EDT Office Visit [facility] OPTOMETRY [address] [place] [address] TarNataliia holley, OD [address] [place] [address] documented as of this encounter Visit Diagnoses Not on filedocumented in this encounter Additional Health Concerns Assessment Noted Time PHQ-9 Depression Total Score: 23 023 11:44 AM EST documented as of this encounter Care Teams Cook Ship Relationship Specialty Start Date End Date Silvia Flores MD [address] [place] [address] PCP - General Family Medicine 12/31/21 Rony Wong, Olesya [address] [place], [place] [phone] Pharmacist Internal Medicine 06/10/23 Wendi Ibrahim, DULCE MARIA [address] [place] [address] Registered Nurse Family Medicine 09/26/24 Blanca Leary 09/26/24 [facility] 12/16/22 documented as of this encounter
--- OUTSIDE RECORDS SUMMARY | 2024-09-26 13:04 | XMS_ITS | Encounter Summary ---
Author Organization [employer] Address 75 [facility] 7t [place] [address] Care Team Providers Care Fruit Culler Name Role Phone Silvia Flores MD Primary Care Provider Rony Wong PharmD Unavailable [phone] Wendi Ibrahim RN Unavailable [phone] Blanca Leary Unavailable Reason for Visit * Reason Comments Care Coordination C3/W TAO Sherwood initial assessment scheduled Encounter Details Date Type Department Care Team (Latest Contact Info) Description 09/26/2024 Patient Outreach [facility] MEDICINE [address] [place], [place] [phone] Silvia Flores MD [address] [place], [place] [phone] Care Coordination (C3CM/TAO Toure initial assessment scheduled) Social History Tobacco Use Types Packs/Day Years [...] of this encounter Progress Notes * Blanca Laery - 09/26/2024 11:14 AM EDT CHW Blanca Leary, placed outbound call to patient introducing herself from [facility] CM Department, in regards to offering for C3 Adult Complex Care Program. Patient's name and was confirmed. Patient agrees to participate in program. Appt. for initial assessment scheduled for 10/09/24 @ 2:00 PM with CM/RN Wendi Ibrahim. CHW reinforced direct contact information or CM for any additional questions or concerns and extended clinic hours on Mondays and Wednesdays, and Walk-In Urgent Care Located in [facility]. Patient provided with after-hours line for [facility], , which offer night triage service and option to transfer to pony ride operator provider if needed. Patient verbalizes understanding, and able to repeat back to physician underwriter. documented in this encounter Plan of Treatment Upcoming Encounters Date Type Department Care Team (Late st Contact Info) Description 10/10/2024 3:00 PM EDT Medication Management [facility] [address] [place] [address] 12/08/2024 3:15 PM EDT Office Visit [facility] OPTOMETRY [address] [place] [address] Nataliia Mcdonald, OD [address] [place] [address] documented as of this encounter Goals Goal [...] documented as of this encounter Care Teams Fruit Culler Relationship Specialty Start Date End Date Silvia Flores MD [address] [place] [address] PCP - General Family Medicine 12/31/21 Rony Wong PharmD [address] [place] [address] Pharmacist Internal Medicine 06/10/23 Wendi Ibrahim RN [address] [place] [address] Registered Nurse Family Medicine 09/26/24 Blanca Leary 09/26/24 [facility] 12/16/22 documented as of this encounter
--- OUTSIDE RECORDS SUMMARY | 2024-09-26 13:04 | XMS_ITS ---
Author Organization [employer] Address 75 [facility] 7t [place] [address] Care Team Providers Care Skein Yarn Dyer Helper Name Role Phone Silvia Flores MD Primary Care Provider Rony Wong PharmD Unavailable Wendi Ibrahim RN Unavailable [phone] Blanca Leary Unavailable CHW Complex Status:Outreach In Progress (Enrolling) Start date:09/26/2024 Enrollment reason:ADT Feed Overview PCP Referral- Assist in keeping medical appts and using resources for his SDOH needs. Pt's nephew is his caregiver now, and requests meals on wheels or meal delivery service. Case Team Name Relationship Phone Blanca Leary(Responsible Staff) [phone] Continued Care and Services Coordination
--- OUTSIDE RECORDS SUMMARY | 2024-09-26 13:04 | XMS_ITS | Encounter Summary ---
Author Organization [employer] Address 75 [facility] 7t [place] [address] Care Team Providers Care Licensed Plumber Name Role Phone Silvia Flores MD Primary Care Provider [phone] Rony Wong PharmD Unavailable [phone] Wendi Ibrahim RN Unavailable [phone] Blanca Leary Unavailable Reason for Visit * Reason Onset Date Comments Nurse Triage 04/27/2023 Encounter Details Date Type Department Care Team (Late st Contact Info) Description 04/27/2023 Telephone [facility] [address] [place], [place] [phone] Silvia Flores MD [address] [place], [place] [phone] Nurse Triage Social History Tobacco Use Types [...] AM EDT documented as of this encounter Functional Status * Over the past 2 weeks, how often have you been bothered by any of the following problems? Question Answer Date of Assessment Author Patient Health Questionnaire-2 Score 6 04/09 11:44 AM Marisol Mcarthur * If you checked off any problems on this questionnaire so far, Question Answer Date of Assessment Author How difficult have these problems made it for you to do your work, take care of things at home, or get along with other people? Extremely difficult 04/27/2023 11:44 AM Marisol Mcarthur * Over the last 2 weeks, how often have you been bothered by any of the following problems? Question Answer Date of Assessment Author Feeling nervous, anxious, or on edge 3 04/09 11:45 AM Marisol Mcarthur Not being able to stop or co ntrol worrying 3 04/27/2023 11:45 AM Marisol Mcarthur Worrying too much about diff erent things 3 04/27/2023 11:45 AM Marisol Mcarthur Trouble relaxing 3 04/27/2023 11:45 AM Marisol Mcarthur Being so restless that it is hard to sit still 2 04/27/2023 11:45 AM Marisol Mcarthur Becoming easily annoyed or irritable 3 04/09 11:45 AM Marisol Mcarthur Feeling afraid as if somethi ng awful might happen 3 04/27/2023 11:45 AM Marisol Mcarthur YARELY-7 Total Score 20 04/27/2023 11:45 AM Marisol Mcarthur * Over the past 2 weeks, how often have you been bothered by any of the following problems? Question Answer Date of Assessment Author Little interest or pleasure in doing things Nearly every day 04/27/2023 11:44 AM Marisol Mcarthur Feeling down, depressed, or hopeless Nearly every day 04/27/2023 11:44 AM Marisol Mcarthur Trouble falling or staying asleep, or sleeping too much Nearly every day 04/27/2023 11:44 AM Marisol Mcarthur Feeling tired or having little energy Nearly every day 04/27/2023 11:44 AM Marisol Mcarthur Poor appetite or overeating Nearly every day 11:44 AM Marisol Mcarthur Feeling bad about yourself - or that you are a failure or have let yourself or your family down Several days 04/27/2023 11:44 AM Marisol Mcarthur Trouble concentrating on things, such as reading the newspaper or watching television Nearly every day 04/27/2023 11:44 AM Marisol Mcarthur Moving or speaking so slowly that other people could have noticed? Or the opposite - being so fidgety or restless that you have been moving around a lot more than usual. Nearly every day 04/27/2023 11:44 AM Marisol Mcarthur Thoughts that you would be better off or hurting yourself in some way Several days 04/27/2023 11:44 AM Marisol Mcarthur Patient Health Questionnaire-9 Score 23 04/27/2023 11:44 AM Yessi Mcarthur documented as of this encounter Miscellaneous Notes * Telephone Encounter - Kayce Olivares RN - 04/27/2023 10:17 AM EST Triage call , Lorena from [facility] calls with Pt next to her. Pt has come to [facility] office looking for rehab referral for substance abuse problem. Advised for Pt to come to [facility] today open till 8pm, forprovider to evaluate Pt. Pt agrees with this disposition and will come to [facility] today. Protocol Used: Information Only Call - [...] caller accepted this outcome Please call in romansh [phone] Lorena is requesting a rehab referral. documented in this encounter Plan of Treatment Upcoming Encounters Date Type Department Care Team (Late st Contact Info) Description 10/10/2024 3:00 PM EDT Medication Management [facility] [address] [place] [address] 12/08/2024 3:15 PM EDT Office Visit [facility] OPTOMETRY [address] [place] [address] Nataliia Mcdonald, OD [address] [place] [address] documented as of this encounter Visit Diagnoses Not on filedocumented in this encounter Additional Health Concerns Assessment Noted Time PHQ-9 Depression Total Score: 23 023 11:44 AM EST documented as of this encounter Care Teams Licensed Plumber Relationship Specialty Start Date End Date Silvia Flores MD [address] [place] [address] PCP - General Family Medicine 12/31/21 Rony Wong, PharmD [address] [place] [address] Pharmacist Internal Medicine 06/10/23 Wendi Ibrahim, DULCE MARIA [address] [place] [address] Registered Nurse Family Medicine 09/26/24 Blanca Leary 09/26/24 [facility] 12/16/22 documented as of this encounter
--- OUTSIDE RECORDS SUMMARY | 2024-09-26 13:04 | XMS_ITS | Encounter Summary ---
Author Organization [employer] Address [address] [facility] 7t [place] [address] Care Team Providers Care Technical Service Specialist Name Role Phone Silvia Flores MD Primary Care Provider [phone] Rony Wong PharmD Unavailable Wendi Ibrahim RN Unavailable [phone] Blanca Leary Unavailable Encounter Details Date Type Department Care Team ([facility] Contact Info) Description 08/26/2022 Orders Only [facility] MEDICINE [address] [place] [address] Silvia Flores MD [address] [place] [address] [phone] Hypokalemia (Primary Dx) Social History Tobacco Use [...] Encounters Date Type Department Care Team (Late Contact Info) Description 10/10/2024 3:00 PM EDT Medication Management [facility] MEDICINE [address] [place] [address] 12/08/2024 3:15 PM EDT Office Visit [facility] OPTOMETRY [address] [place], [place] [phone] Nataliia Mcdonald, OD [address] [place] [address] Scheduled Orders Name Type Priority Associated Diagnoses [...] documented as of this encounter Care Teams Technical Service Specialist Relationship Specialty Start Date End Date Silvia Flores MD [address] [place] [address] PCP - General Family Medicine 12/31/21 Rony Wong, LorrieD [address] [place], [place] Pharmacist Internal Medicine 06/10/23 Wendi Ibrahim RN [address] [place] [address] Registered Nurse Family Medicine 09/26/24 Blanca Leary 09/26/24 [facility] 12/16/22 documented as of this encounter
--- OUTSIDE RECORDS SUMMARY | 2024-09-26 13:04 | XMS_ITS | Encounter Summary ---
Author Organization [employer] Address 75 [facility] 7t [place] [address] Care Team Providers Care Automatic Paint Sprayer Operator Name Role Phone Silvia Flores MD Primary Care Provider Rony Wong PharmD Unavailable Wendi Ibrahim RN Unavailable [phone] Blanca Leary Unavailable Encounter Details Date Type Department Care Team ([facility] Contact Info) Description 08/26/2022 Orders Only [facility] CHC MED & PEDS [address] [place], [place] [phone] Natasha Jacob MD [address] [place], [place] [phone] Social History Tobacco Use Types Packs/Day Years [...] Upcoming Encounters Date Type Department Care Team ([facility] Contact Info) Description 10/10/2024 3:00 PM EDT Medication Management [facility] MEDICINE [address] [place] [address] 12/08/2024 3:15 PM EDT Office Visit [facility] OPTOMETRY [address] [place], [place] [phone] Tommykishan Nataliia, OD [address] [place] [address] documented as of this encounter Visit Diagnoses Not on filedocumented in this encounter Additional Health Concerns Assessment Noted Time PHQ-9 Depression Total Score: 0 08/26/19 23 10:59 AM EDT documented as of this encounter Care Teams Automatic Paint Sprayer Operator Relationship Specialty Start Date End Date Silvia Flores MD [address] [place] [address] PCP - General Family Medicine 12/31/21 Rony Wong, LorrieD [address] [place], [place] [phone] Pharmacist Internal Medicine 06/10/23 Wendi Ibrahim, DULCE MARIA [address] [place] [address] Registered Nurse Family Medicine 09/26/24 Blanca Leary 09/26/24 [facility] 12/16/22 documented as of this encounter
--- OUTSIDE RECORDS SUMMARY | 2024-09-26 13:04 | XMS_ITS | Encounter Summary ---
Author Organization [employer] Address [address] [facility] [address] [place] [address] Care Team Providers Care Job Superintendent Name Role Phone Silvia Flores MD Primary Care Provider [phone] Rony Wong PharmD Unavailable [phone] Wendi Ibrahim RN Unavailable [phone] Blanca Leary Unavailable Encounter Details Date Type Department Care Team (Late st Contact Info) Description 06/04/2023 Orders Only [facility] MEDICINE [address] [place] [address] Lucero Scott, RN Social History Tobacco Use Types Packs/Day [...] Description 10/10/2024 3:00 PM EDT Medication Management [facility] MEDICINE [address] [place] [address] 12/08/2024 3:15 PM EDT Office Visit [facility] OPTOMETRY [address] [place] [address] Tarka, Nataliia, OD [address] [place] [address] documented as of this encounter Visit Diagnoses Not on filedocumented in this encounter Additional Health Concerns Assessment Noted Time PHQ-9 Depression Total Score: 23 023 11:44 AM EST documented as of this encounter Care Teams Job Superintendent Relationship Specialty Start Date End Date Silvia Flores MD [address] [place] [address] PCP - General Family Medicine 12/31/21 Rony Wong, LorrieD [address] [place] [address] Pharmacist Internal Medicine 06/10/23 Wendi Ibrahim RN [address] [place] [address] Registered Nurse Family Medicine 09/26/24 Blanca Leary 09/26/24 [facility] 12/16/22 documented as of this encounter
--- OUTSIDE RECORDS SUMMARY | 2024-09-26 13:04 | XMS_ITS | Encounter Summary ---
Author Organization [employer] Address [address] [address] [place] [address] Care Team Providers Care Telephone Advice Nurse Name Role Phone Silvia Flores MD Primary Care Provider [phone] Rony Wong PharmD Unavailable [phone] Encounter Details Date Type Department Care Team ([facility] Contact Info) Description 09/25/2024 Telephone [facility] MED & PEDS [address] [place], [place] [phone] Silvia Flores MD [address] [place] [address] Social History Tobacco Use Types Packs/Day Years [...] Encounter - Renetta Noble LPN - 09/25/2024 9:18 AM EDT ----- Message from Silvia Flores MD sent at 2024 7:15 AM EDT ----- Please write script for nutritional supplement. Boost glucose control or Glucerna. Dx diabetes mellitus type 2, at risk for inadequate nutrition, and food insecurity. Thank you * Telephone Encounter - Mishel Parsons RN - 09/25/2024 9:15 AM EDT PA specialist requested per PCP request for Boost to be sent to [facility] pharmacy. Supplement sent to pharmacy as requested. documented in this encounter Plan of Treatment Upcoming Encounters Date Type Department Care Team (Late st Contact Info) Description 10/10/2024 3:00 PM EDT Medication Management [facility] MEDICINE [address] [place] [address] 12/08/2024 3:15 PM EDT Office Visit [facility] OPTOMETRY [address] [place] [address] Nataliia Mcdonald OD [address] [place] [address] documented as of this encounter Goals Goal [...] as of this encounter Care Teams Telephone Advice Nurse Relationship Specialty Start Date End Date Silvia Flores MD [address] [place] [address] PCP - General Family Medicine 12/31/21 Rony Wong PharmD [address] [place] [address] Pharmacist Internal Medicine 06/10/23 [facility] 12/16/22 documented as of this encounter
--- OUTSIDE RECORDS SUMMARY | 2024-09-26 13:05 | XMS_ITS | Encounter Summary ---
Author Organization [employer] Address [address] [facility] [address] [place] [address] Care Team Providers Care Rip Saw Operator Name Role Phone Silvia Flores MD Primary Care Provider Rony Wong PharmD Unavailable Wendi Ibrahim RN Unavailable [phone] Blanca Leary Unavailable Reason for Visit * Reason Onset Date Comments Requested Call Back 10/13/2022 Encounter Details Date Type Department Care Team (Late st Contact Info) Description 10/13/2022 Telephone [facility] MEDICINE [address] [place], [place] [phone] Silvia Flores MD [address] [place], [place] [phone] Requested Call Back Social History Tobacco Use [...] 10/13/2022 2:22 PM EDT Randall Bernard at [facility] calling to inform PCP patient was admitted at [facility] adult foster care 10/13/22. Patient has not taken his medication at all today. Recoater triaged patient with high BP 177/118. Staff can only remind patients to take medication they cannot administer them. Joana is requesting for VNA services. States patient needs education on medications and diagnoses. Please call [phone] documented in this encounter Plan of Treatment Upcoming Encounters Date Type Department Care Team (Late st Contact Info) Description 10/10/2024 3:00 PM EDT Medication Management [facility] MEDICINE [address] [place] [address] 12/08/2024 3:15 PM EDT Office Visit [facility] OPTOMETRY [address] [place], [place] [phone] Nataliia Mcdonald OD [address] [place] [address] documented as of this encounter Visit Diagnoses Not on filedocumented in this encounter Additional Health Concerns Assessment Noted Time PHQ-9 Depression Total Score: 0 08/26/19 23 10:59 AM EDT documented as of this encounter Care Teams Rip Saw Operator Relationship Specialty Start Date End Date Silvia Flores MD [address] [place] [address] PCP - General Family Medicine 12/31/21 Rony Wong, LorrieD [address] [place] [address] Pharmacist Internal Medicine 06/10/23 Wendi Ibrahim, DULCE MARIA [address] [place] [address] Registered Nurse Family Medicine 09/26/24 Blanca Leary 09/26/24 [facility] 12/16/22 documented as of this encounter
--- OUTSIDE RECORDS SUMMARY | 2024-09-26 13:05 | XMS_ITS | Encounter Summary ---
Author Organization [employer] Address [address] [facility] [address] [place] [address] Care Team Providers Care Director Of Product Development Name Role Phone Silvia Flores MD Primary Care Provider Rony Wong PharmD Unavailable [phone] Wendi Ibrahim RN Unavailable [phone] Blanca Leary Unavailable Encounter Details Date Type Department Care Team ([facility] Contact Info) Description 09/18/2022 Telephone [facility] MEDICINE [address] [place], [place] [phone] Natasha Amin LPN Social History Tobacco Use [...] Upcoming Encounters Date Type Department Care Team ([facility] Contact Info) Description 10/10/2024 3:00 PM EDT Medication Management [facility] MEDICINE [address] [place], [place] [phone] 12/08/2024 3:15 PM EDT Office Visit [facility] OPTOMETRY [address] [place] [phone] Nataliia Mcdonald, OD [address] [place] [address] documented as of this encounter Visit Diagnoses Not on filedocumented in this encounter Additional Health Concerns Assessment Noted Time PHQ-9 Depression Total Score: 0 08/26/19 23 10:59 AM EDT documented as of this encounter Care Teams Director Of Product Development Relationship Specialty Start Date End Date Silvia Flores MD [address] [place] [address] PCP - General Family Medicine 12/31/21 Rony Wong, LorrieD [address] [place] [phone] Pharmacist Internal Medicine 06/10/23 Wendi Ibrahim RN [address] [place] [phone] Registered Nurse Family Medicine 09/26/24 Blanca Leary 09/26/24 [facility] 12/16/22 documented as of this encounter
[2024-09-26 13:14] LABS: MANUAL DIFF FLAG NO
[2024-09-26 13:28] LABS: Basophils Percent Auto 0.3 % (0-2); Eosinophils Absolute Auto 0.2 X10*3/uL (0.0-0.4); Eosinophils Percent Auto 2.2 % (0-4); Hematocrit 42.3 % (42.0-52.0); Hemoglobin 13.4 g/dl (14.0-18.0); Imm Gran Abs Auto 0.03 X10*3/uL (0.00-0.03); Imm Gran Pct Auto 0.4 % (0.0-0.4); Lymphocytes Absolute Auto 1.9 X10*3/uL (1.2-4.9); Lymphocytes Percent Auto 25.1 % (20-40); Mean Corpuscular HGB Conc 31.7 g/dl (31.0-36.0); Mean Corpuscular Hemoglobin 28.8 pg (27.0-33.0); Monocytes Absolute Auto 0.4 X10*3/uL (0.1-1.2); Monocytes Percent Auto 5.6 % (2-11); Neutrophils Absolute Auto 5.1 x10*3/uL (2.0-8.3); Neutrophils Percent Auto 66.4 % (45-73); Platelet Count 192 X10*3/uL (160-400); Red Blood Count 4.65 X10*6/uL (4.60-5.80); Red Cell Distribution Width 14.1 % (11.0-16.0); White Blood Count 7.7 X10*3/uL (4.8-10.8)
[2024-09-26 13:53] LABS: Estimated Average Glucose 123 mg/dL; Hemoglobin A1C 146.4545 umol/L; Hemoglobin A1c % 5.9 % (<6.0)
[2024-09-26 13:59] LABS: Erythrocyte Sedimentation Rate 16 MM/HR (0-15)
[2024-09-26 14:00] LABS: Alanine Aminotransferase 38 U/L (0-40); Albumin Level 3.8 g/dL (3.5-5.0); Alkaline Phosphatase 145 U/L (39-117); Anion Gap 10 (12-20); Aspartate Amino Transferase 41 U/L (5-37); Bilirubin Total 0.3 mg/dL (0.0-1.0); Blood Urea Nitrogen 16 mg/dL (9-16); Carbon Dioxide 27 mmol/L (22-29); Chloride 107 mmol/L (96-108); Cholesterol 127 mg/dL (<200); Estimated Glomerular Filt Rate > 60; Glucose Random 160 mg/dL (60-115); HDL Cholesterol 44 mg/dL (>40); LDL Cholesterol Calculated 66 mg/dL (<100); Potassium 3.8 mmol/L (3.3-5.1); Sodium 140 mmol/L (135-145); Total Protein 7.6 g/dL (6.5-8.0); Triglycerides 88 mg/dL (<150)
[2024-09-26 14:05] LABS: Creatinine Urine 152.55 mg/dL; Microalbum/Creatinine Ratio Ur 228.7 ug/mg cr (<30)
[2024-09-26 14:08] LABS: TSH reflex Free T4 1.53 uIU/mL (0.32-4.0); Uric Acid 3.9 mg/dL (3.4-7.0)
[2024-09-26 14:16] LABS: Reflex LDLD? No
[2024-09-26 14:26] LABS: Folate 11.2 ng/mL (> or = 4.0); Prostate Specific Antigen Scr 0.14 ng/mL (<0.05-4.0); Vitamin B12 403 pg/mL (200-900)
[2024-09-27 03:51] LABS: HBS Num1 2.68 mIU/mL (0-7.99); HBc Num1 9.36 S/CO (0.00-0.79); HBsAGNum1 0.46 S/CO (0.00-0.99); HIV AB/AG Nonreactive (Nonreactive); HIV Num 1 0.07 S/CO (0.00-0.99); Hepatitis B Surface Antigen Negative (Negative); ~HepC Num1 0.17 S/CO (0.00-0.79); ~Hepatitis B Surface Antibody NONREACTIVE (Nonreactive); ~Hepatitis C Antibody Nonreactive (Nonreactive)
[2024-09-27 04:52] LABS: HBc Num2 9.37 S/CO; HBc Num3 9.42 S/CO; Hepatitis B Core Antibody Reactive (Nonreactive)
[2024-09-28 06:58] LABS: Hepatitis B Core Antibody IgM NON-REACTIVE (NON-REACTIVE)
== END 2024-09-26 11:53 | disposition home or self-care (01) ==
LOC: HO.HHCL 11:52
PROVIDERS: Visit Provider Family Medicine
DX: I11.0 Hypertensive heart disease with heart failure (principal); I50.20 Unspecified systolic (congestive) heart failure; Z11.3 Encounter for screening for infections with a predominantly sexual mode of transmission; M79.671 Pain in right foot; G89.29 Other chronic pain; M79.672 Pain in left foot; E11.29 Type 2 diabetes mellitus with other diabetic kidney complication; R80.9 Proteinuria, unspecified; Z79.4 Long term (current) use of insulin; R32 Unspecified urinary incontinence; M79.641 Pain in right hand
CPT/HCPCS: 36415; 80053; 80061; 82043; 82570; 82607; 82746; 83036; 84153; 84443; 84550; 85025; 85652; 86140; 86704; 86705; 86706; 86803; 87340; 87389

== ENCOUNTER 2024-12-07 16:31 | Inpatient (IN) | payer MEDICAID, SELFPAY ==
[2024-12-07] VITALS (13 sets, daily range): BP systolic 148–198; BP diastolic 70–94; PULSE 33–92; RESP 12–18; TEMP 36.1–37.5; O2SAT 95–100; BMI 37.5
--- NOTE | 2024-12-07 | ECG_ITS ---
Test Reason : bradycardia Blood Pressure : */* mmHG Vent. Rate : 66 BPM Atrial Rate : 66 BPM P-R Int : 154 ms QRS Dur : 118 ms QT Int : 440 ms P-R-T Axes : 53 -8 247 degrees QTcB Int : 461 ms Sinus rhythm with sinus arrhythmia with occasional Premature ventricular complexes Non-specific intra-ventricular conduction delay T wave abnormality, consider anterolateral ischemia Prolonged QT Abnormal ECG When compared with ECG of 07-Dec-2024 18:58, No significant change was found Referred By: Meño Hawkins Electronically Signed By: MARY LEDESMA MD
--- NOTE | ~2024-12-07 | XR_ITS ---
EXAMINATION: XR CHEST 1 VIEW HISTORY: chest pain COMPARISON: Comparison is made with the prior examination dated 12/09/2024. FINDINGS: A single AP portable view of the chest performed at 5:14 PM is submitted. The lungs are expanded and clear. There is no pleural effusion, pneumothorax, or pulmonary vascular congestion. The heart is normal in size. There is mild degenerative disc disease of the spine. XR/XR chest 1V IMPRESSION: No acute cardiopulmonary abnormality. Electronically signed by: Erik Britton MD 12/15/2024 07:12 AM EDT
--- NOTE | ~2024-12-07 | XR_ITS ---
CLINICAL HISTORY: sob 1 view chest Comparison: CR - XR CHEST 1V - 12/09/24 07:43 EDT Findings: Cardiac and mediastinal contours are stable. Lungs are underexpanded with mild interstitial prominence. No focal consolidation. No effusion. No pneumothorax. No acute osseous finding. Impression: Underexpanded lungs with mild interstitial prominence. This document has been electronically signed by: Raghu Godfrey MD on 12/09/2024 08:27:00
--- NOTE | ~2024-12-07 | XR_ITS ---
CLINICAL HISTORY: pain, injury 5 view left shoulder Comparison: None provided Findings: Bones intact. No dislocations. Mild degenerative change of the AC joint and glenohumeral joint. No erosions. No radiopaque foreign body. IMPRESSION: 1. No acute findings This document has been electronically signed by: Danielle Jordan MD on 12/07/2024 18:00:15
--- NOTE | ~2024-12-07 | CT_ITS ---
CLINICAL HISTORY: lethargic, fall CT head without contrast. COMPARISON: CT head dated 01/17/23 at 19:13 EDT FINDINGS: Motion artifact mildly limits evaluation of the brain parenchyma on both repeat and initial imaging. The visualized paranasal sinuses are clear. The mastoid air cells are clear. No calvarial fracture. Atherosclerotic intracranial vasculature. No evidence for mass or mass effect. No intracranial hemorrhage or abnormal extra-axial fluid collection. No evidence of hydrocephalus. The basilar cisterns are patent. There are periventricular areas of low attenuation compatible with mild white matter small vessel disease. Posterior fossa appears unremarkable. IMPRESSION: 1. Motion artifact mildly limits evaluation of the brain parenchyma. Within limits of study, no acute intracranial findings. This document has been electronically signed by: Shahid Tyler MD on 12/08/2024 20:31:15
--- NOTE | ~2024-12-07 | XR_ITS ---
CLINICAL HISTORY: cough 1 view chest x-ray Comparison: CT/SR - CT CHEST WITH IV CONTRAST - 01/17/23 19:07 EDT Findings: The lungs are clear. Normal size heart. No acute fracture. IMPRESSION: 1. No acute findings. This document has been electronically signed by: Raghu Godfrey MD on 12/09/2024 08:17:06
--- NOTE | 2024-12-07 16:52 | PC.NURSE ---
pt presents via EMS after attempting to seek resources from [facility] in [place]. [facility] [place] is an out patient day program only. Per [facility] worker Jake pt lives independently in an apartment and admits to an undisclosed amount of heroin daily over the last year. Per [facility] worker, pt sts that he fell out of his motorized WC yesterday and is complaining of shoulder pain. [facility] worker sts d/t drug use and fall history in addition to depression and anxiety he is not appropriate for [facility] day program. As a courteously [facility] began admission process to [facility] d/t pt hx of depression/anxiety. [facility] to fax supporting documentation.
--- NOTE | 2024-12-07 17:20 | PC.NURSE ---
pt safety searched by security- one pink capsule of what pt reports is cocaine confiscated
--- NOTE | 2024-12-07 17:25 | PC.NURSE ---
Pt is calm, cooperative, french speaking. Pt seen with medical office assistant. Pt c/o L shoulder pain from a fall today, normally gets around in his wheelchair but had a fall trying to walk today. Sts hx heroine use 6 bags/day, last use this morning. RR even and unlabored, denies CP or SOB. Pt sts 7/10 L shoulder pain radiating to L upper arm. No other complaints. Pupils reactive but a little sluggish bilat. A+OX4, calm, cooperative.
--- NOTE | 2024-12-07 17:49 | ED_ITS ---
HPI - Extremity Problem General Chief complaint: Extremity Injury, Upper Stated complaint: Shoulder pain, pt admits heroine use today Time Seen by Provider: 12/07/24 17:43 Source: patient, EMS, RN notes reviewed and old records reviewed Mode of arrival: EMS Limitations: no limitations History of Present Illness ED Provider: Urvashi Tom PA-C HPI Narrative: 59-year-old male with a history of opioid use disorder, DM 2, HTN, HLD, hx VT/VF cardiac arrest in 10/2022, hx left hand abscess s/p I&D, hx CVA with left sided deficits, wheelchair bound, morbid obesity who presents to the ER via EMS for evaluation of left shoulder pain s/p fall out of his wheelchair today while at [facility]. he reportedly lives in an apartment but was at [facility] today for worsening depression and anxiety. For the last year he has been using heroin and cocaine daily. [facility] worker was working on getting him admitted to [facility]. when at [facility] he accidentally fell out of his wheelchair onto the left shoulder. No head strike or loss of consciousness. Patient states he has pain when touching our moving the left arm. he has chronic pain in his shoulder that is exacerbated after the fall today. No other injuries. No chest pain or shortness of breath. No headache or neck pain. He is not on anticoagulation. He endorses increased depression, denies SI. Endorses he uses all kinds of drugs. Denies SI, HI or AH/VH. MD Complaint: joint pain Pain Consistency: constant Location: left Quality: aching Radiation: none Relieving factors: rest Exacerbating factors: range of motion and palpation Associated symptoms: denies other symptoms Related Data Home Medications ?Medication ?Instructions ?Recorded ?Confirmed aspirin 81 mg tablet,delayed 81 mg PO DAILY 01/18/23 0 12/08/24 release insulin glargine 100 unit/mL (3 30 unit subcut BID 04/0112/08/24 mL) subcutaneous pen (Lantus Solostar U-100 Insulin) atorvastatin 80 mg tablet 80 mg PO BEDTIME 11/13/23 docusate sodium 100 mg capsule 200 mg PO BEDTIME PRN C onstipation 11/13/23 12/08/24 (Colace) gabapentin 300 mg capsule 300 mg PO TID 11/13/2312/08 hydroxyzine HCl 50 mg tablet 50 mg PO BID PRN Anxiety 11/13/23 12/08/24 losartan 50 mg tablet 50 mg PO DAILY 11/13/2306/03 metformin 500 mg tablet,extended 500 mg PO BID 4 12/08/24 release 24 hr polyethylene glycol 3350 17 17 g PO DAILY PRN Constipa tion 11/13/23 12/08/24 gram/dose oral powder (Miralax) tamsulosin 0.4 mg capsule 0.4 mg PO DAILY 11/13/2306/03 insulin aspart U-100 100 unit/mL 5 sliding scale dose subcut TID 12/08/24 12/08/24 (3 mL) subcutaneous pen Allergies Allergy/AdvReac Type Severity Reaction Status Date / Time Penicillins (PCN) Allergy Intermediate HIVES Verified 12/07/24 17:12 Review of Systems 2 Review of Systems: Yes all other systems are reviewed and are negative PMFSH Past Medical History Medical History Substance abuse Type 2 diabetes mellitus with unspecified complications Essential hypertension Unstable angina History of CVA (cerebrovascular accident) Diabetes HTN (hypertension) Morbid obesity Chest pain Surgical History H/O hand surgery Family History Family History Other CAD (coronary artery disease) Diabetes HTN (hypertension) Social History Social History Household Members: None Housing: Apartment Do you presently have visiting nurse or other home services: Yes ([facility]) Patient Tobacco Use Status: Tobacco use Unknown Tobacco use type: Cigarette Smoked in Last 30 Days: No e-Cigarette/Vaping Use: Never Used Second Hand Smoke Exposure: No Use of substances other than those prescribed or required for medical reasons: Yes Substance Use Type: Heroin Substance Use Frequency: Daily Last Used Substance: Hours (ago) Any prior treatment program specific to substance use: No Advance Directives: Yes Advance Directives on File: Yes Advance Directives Date on File: 11/25/23 Do you have a plan to hurt others: No Plan Nutrition Risks: No Nutritional Risk service: No Current occupational status: unemployed Physical Exam 2 Exam: Exam: Appearance: lethargic, disheveled male, smells of foul urine, unkempt, appears older than states age. No acute distress. Head: normocephalic, atraumatic. Eyes: Pupils equal, round and reactive to light. ENT: Pharynx w/ poor dentition. Neck: Normal inspection. Neck supple. CVS: Normal heart rate and rhythm. Pulses normal. Respiratory: No respiratory distress. Breath sounds normal. Abdomen: Soft and nontender. +BS x4 Skin: Skin warm and dry. Normal skin color. Normal skin turgor. No rashes. Extremities: No lower extremity edema. No joint swelling. left anterior shoulder w/ tenderness, normal passive ROM. NV intact distally Neuro/psych: arouses to voice and answers questions appropriately, mild left sided weakness, moves all extremities. CN II-XII intact. Normal speech and cognition. Vital Signs: Vital Signs: Last Vital Signs Temp 98.5 F 12/09/24 21:31 Pulse 91 12/09/24 21:31 Resp 16 12/09/24 21:31 BP 145/72 H 12/09/24 21:31 Pulse Ox 96 12/09/24 21:32 O2 Del Method Nasal Cannula 12/09/24 21:32 O2 Flow Rate 1 12/09/24 21:32 BMI result Body Mass Index 37.5 Course Reevaluation(s) Reevaluation #1: I Melba Rose PA-C have accepted care of the patient and signed out pending labs, troponin, final disposition First troponin obtained, we will obtain a delta..... Has a urinary tract infection, starting antibiotics Delta troponin flat Patient has had episodes of bradycardia, however they seem to have self corrected, we will keep him monitored on the monitoring coordinator, the plan is still to have him see the care team in the morning Time: 03:56 Date: 12/08/24 Provider: AISLINN Moore Patient in physician observation for psychiatric evaluation.? No acute events reported overnight. No current complaints. VS stable.? Patient is in bed search status/pending CARE team evaluation. Will continue to monitor. 12/08/24 0116 ZARA Bhakta: Per Edelmira from CARE team, patient does not meet inpatient admission criteria. She states that he is currently living in an apartment owned by drug dealers, is unable to care for himself and has been urinating and defacating on the floor. Will order PT/CM eval. Time: 03:55 Reevaluation #2: 12/08/24 17:48 ZARA Bhakta: Case discussed with Caroline from . She notes that patient was too lethargic to participate in physical therapy evaluation and was also too lethargic to participate in a conversation with her. Patient has been in the ED for over 25 hours, should no longer be under the influence of drugs or alcohol. Will obtain CT head as patient is here for a fall and did not have this imaging upon arrival. Time: 17:48 Reevaluation #3: I Melba Rose PA-C have accepted care of the patient at signed out as case management provider, pending CT of the brain CT brain:IMPRESSION: 1. Motion artifact mildly limits evaluation of the brain parenchyma. Within limits of study, no acute intracranial findings. He can remain his Phys obs for PT case management Additional Reevaluation(s): 12/09/24 0801 ZARA Bhakta: Physician observation continued, patient noted to be febrile, hypoxic, and tachycardic this morning. Attending MD, Dr. Hi notified of these findings by RN prior to my arrival, CXR, blood cultures, lactic and antibiotics ordered by Dr. Hi. 12/09/24 0915 ZARA Bhakta: No evidence of pneumonia on CXR. Admission to medicine accepted by Dr. Sandy. Medications Administered Generic Name Dose Route Start Last Admin Trade Name Freq PRN Reason Stop Dose Admin Acetaminophen 650 mg 12/09/24 10:07 12/09/24 21:28 Acetaminophen 325 Mg Tablet PO 650 mg Q6H PRN Administration Pain, Mild 1-3,fever,headache Aspirin 81 mg 12/08/24 09:45 12/09/24 14:02 Aspirin Enteric Coated 81 Mg Tablet. PO 81 mg DAILY JAMIE Administration Atorvastatin Calcium 80 mg 12/08/24 21:00 12/09/24 21:28 Atorvastatin Calcium 80 Mg Tablet PO 80 mg BEDTIME JAMIE Administration Gabapentin 300 mg 12/08/24 09:45 12/09/24 21:28 Gabapentin 300 Mg Capsule PO 300 mg TID JAMIE Administration Insulin Glargine 30 unit 12/08/24 21:00 12/09/24 21:28 Insulin Glargine,Hum.Rec.Anlog 100 Unit/Ml 10 Ml Vial SUBCUT 30 unit BID JAMIE Administration Losartan Potassium 50 mg 12/08/24 09:45 12/09/24 14:03 Losartan Potassium 50 Mg Tablet PO 50 mg DAILY JAMIE Administration Protocol Metformin HCl 500 mg 12/08/24 09:45 12/09/24 21:28 Metformin Hcl Er 500 Mg Tab.Er.24h PO 500 mg BID JAMIE Administration Sodium Chloride 3 ml 12/09/24 16:00 12/09/24 17:28 0.9 % Sodium Chloride Flush 3 Ml Syringe IVFLUSH 3 ml QSHIFT JAMIE Administration Tamsulosin HCl 0.4 mg 12/08/24 09:45 12/09/24 14:02 Tamsulosin Hcl 0.4 Mg Capsule PO 0.4 mg DAILY JAMIE Administration Discontinued Medications Generic Name Dose Route Start Last Admin Trade Name Freq PRN Reason Stop Dose Admin Gabapentin 300 mg 12/08/24 05:19 12/08/24 05:23 Gabapentin 300 Mg Capsule PO 12/08/24 05:20 300 mg ONCE ONE Administration Sodium Chloride 1,000 mls @ 999 mls/hr 12/09/24 07:30 12/09/24 08:58 Ns IV 12/09/24 08:30 Infused .Q1H1M JAMIE Infusion Acetaminophen 1,000 mg in 100 mls @ 400 mls/hr 12/09/24 07:46 12/09/24 08:17 Ofirmev IV 12/09/24 08:00 Infused ONCE ONE Infusion Sodium Chloride 3,063.87 mls @ 3,063.87 mls/hr 12/09/24 07:57 12/09/24 08:59 Ns 30 ml/kg infuse over 1 hr (3063.87 ml) 12/09/24 08:56 0 mls/hr IV Infusion .Q1H STA Cefepime HCl 2 gm in 50 mls @ 100 mls/hr 12/09/24 07:58 12/09/24 08:38 Maxipime IV 12/09/24 08:27 Infused ONCE ONE Infusion Insulin Human Lispro 0 unit 12/08/24 11:30 12/09/24 08:17 Insulin Lispro 100 Unit/Ml 3 Ml Vial SUBCUT 12/09/24 09:36 Not Given QIDACHS [facility] Protocol Trimethoprim/Sulfamethoxazole 1 tab 12/07/24 22:29 12/07/24 22:50 Sulfamethox/Trimeth 800/160 Tablet PO 12/07/24 22:30 1 tab ONCE ONE Administration Trimethoprim/Sulfamethoxazole 1 tab 12/08/24 04:00 12/09/24 04:21 Sulfamethox/Trimeth 800/160 Tablet PO 12/14/24 03:59 1 tab Q12H JAMIE Administration Medical Decision Making Medical Decision Making MDM Narrative: 59-year-old Lithuanian-speaking male with complex medical and psychiatric history presenting from [facility] for medical clearance and left shoulder pain s/p fall out of his wheelchair today. [facility] worker called here and spoke w/ nursing. No SI but referral was placed at [facility] for bed a Faustina Guy. He is under the influence of drugs. Drugs found on his safety search. He is hemodynaimcally stable and breathing adequately on his own. left shoulder pain is acute on chronic, is it tender in the left AC area but able to passively range, abduct the shoulder to 180 degrees. NV Intact distally. doubt acute fx XR shoulder done and shows no acute findings. labs and EKG pending for medical clearance and will have him seen by CARE team for potential inpatient psych admission per [facility] recommendations Differential Diagnosis Differential Diagnoses: The differential diagnosis associated with the presentation includes clavicular fx, ac joint separation, humerus fx substance induced mood disorder, acute psychosis, polysubstance use disorder, PTSD, bipolar disorder, major depression with psychotic features Admission/Observation Consideration of admission/observation: Escalation of care including admission/observation considered Lab Data [facility] Lab Attestation statement: I reviewed the patient's lab results. mild stable anemia 12/09/24 10:49 12/09/24 10:49 Labs: Lab Results 12/07/24 12/07/24 12/07/24 Range/Units 17:08 18:32 20:40 WBC 7.8 (4.8-10.8) X10*3/uL RBC 4.56 L (4.60-5.80) X10*6/uL Hgb 13.3 L (14.0-18.0) g/dl Hct 40.5 L (42.0-52.0) % MCV 88.8 (80.0-98.0) fL MCH 29.2 (27.0-33.0) pg MCHC 32.8 (31.0-36.0) g/dl RDW 14.3 (11.0-16.0) % Plt Count 223 (160-400) X10*3/uL MPV 10.5 (9.4-12.4) fL Immature Gran % (Auto) 0.3 (0.0-0.4) % Neut % (Auto) 55.3 (45-73) % Lymph % (Auto) 35.8 (20-40) % [place] % (Auto) 6.1 (2-11) % Eos % (Auto) 2.2 (0-4) % Baso % (Auto) 0.3 (0-2) % Lymph # (Auto) 2.8 (1.2-4.9) X10*3/uL [place] # (Auto) 0.5 (0.1-1.2) X10*3/uL Eos # (Auto) 0.2 (0.0-0.4) X10*3/uL Baso # (Auto) 0.0 (0.0-0.2) X10*3/uL Abs Immat Gran (auto) 0.02 (0.00-0.03) X10*3/uL Absolute Neuts (auto) 4.3 (2.0-8.3) x10*3/uL Absolute Nucleated RBC 0.000 (0.0-0.012) X10*3/uL Nucleated RBC % (auto) 0.0 (0.0-0.2) /100WBC Sodium 144 (135-145) mmol/L Potassium 3.8 (3.3-5.1) mmol/L Chloride 103 (96-108) mmol/L Carbon Dioxide 29 (22-29) mmol/L Anion Gap 16 (12-20) BUN 17 H (9-16) mg/dL Creatinine 0.97 (0.5-1.4) mg/dL Estim Creat Clear Calc 90.1 Estimated GFR > 60 POC Glucose 131 H (60-115) mg/dL Random Glucose 190 H (60-115) mg/dL Lactic Acid (0.5-2.0) mmol/L Calcium 8.7 (8.4-10.2) mg/dL Magnesium 2.1 (1.6-2.6) mg/dL Total Bilirubin 0.3 (0.0-1.0) mg/dL Direct Bilirubin 0.1 (0.0-0.5) mg/dL AST 50 H (5-37) U/L ALT 20 (0-40) U/L Alkaline Phosphatase 127 H (39-117) U/L Troponin I High Sens (<3.5-35.0) ng/L Total Protein 7.3 (6.5-8.0) g/dL Albumin 3.6 (3.5-5.0) g/dL Urine Color Yellow Urine Appearance Clear Urine pH 7.0 (5.0-9.0) Ur Specific Florien 1.015 (1.005-1.025) Urine Protein Trace (Neg-Trace) mg/dL Urine Glucose (UA) Negative (Negative) mg/dL Urine Ketones Negative (Negative) mg/dL Urine Blood Small (1+) H (Negative) Urine Nitrite Positive H (Negative) Ur Leukocyte Esterase Small (1+) H (Negative) Urine RBC 3-5 H (0-2) /HPF Urine WBC 6-10 H (0-5) /HPF Ur Squamous Epith Cells 0-2 (0-2) /HPF Urine Bacteria 4+ (None Seen) Hyaline Casts 0-2 (0-2) /LPF Urine Opiates Screen POSITIVE H (Not Detect) Ur Buprenorphine Scrn Not Detected (Not Detect) ng/mL Ur Oxycodone Screen Not Detected (Not Detect) ng/mL Urine Methadone Screen Not Detected (Not Detect) ng/mL Urine Fentanyl Screen POSITIVE H (Not Detect) Ur Barbiturates Screen Not Detected (Not Detect) Ur Phencyclidine Scrn Not Detected (Not Detect) Ur Amphetamines Screen Not Detected (Not Detect) U Benzodiazepines Scrn Not Detected (Not Detect) Urine Cocaine Screen POSITIVE H (Not Detect) U Marijuana (THC) Screen POSITIVE H (Not Detect) Ethyl Alcohol < 10 mg/dL Influenza Type A (PCR) (Negative) Influenza Type B (PCR) (Negative) RSV RNA Qual (PCR) (Negative) SARS-CoV-2 RNA (RT-PCR) (Negative) 12/07/24 12/07/24 12/08/24 Range/Units 21:56 22:13 00:00 WBC (4.8-10.8) X10*3/uL RBC (4.60-5.80) X10*6/uL Hgb (14.0-18.0) g/dl Hct (42.0-52.0) % MCV (80.0-98.0) fL MCH (27.0-33.0) pg MCHC (31.0-36.0) g/dl RDW (11.0-16.0) % Plt Count (160-400) X10*3/uL MPV (9.4-12.4) fL Immature Gran % (Auto) (0.0-0.4) % Neut % (Auto) (45-73) % Lymph % (Auto) (20-40) % [place] % (Auto) (2-11) % Eos % (Auto) (0-4) % Baso % (Auto) (0-2) % Lymph # (Auto) (1.2-4.9) X10*3/uL [place] # (Auto) (0.1-1.2) X10*3/uL Eos # (Auto) (0.0-0.4) X10*3/uL Baso # (Auto) (0.0-0.2) X10*3/uL Abs Immat Gran (auto) (0.00-0.03) X10*3/uL Absolute Neuts (auto) (2.0-8.3) x10*3/uL Absolute Nucleated RBC (0.0-0.012) X10*3/uL Nucleated RBC % (auto) (0.0-0.2) /100WBC Sodium (135-145) mmol/L Potassium (3.3-5.1) mmol/L Chloride (96-108) mmol/L Carbon Dioxide (22-29) mmol/L Anion Gap (12-20) BUN (9-16) mg/dL Creatinine (0.5-1.4) mg/dL Estim Creat Clear Calc Estimated GFR POC Glucose 122 H (60-115) mg/dL Random Glucose (60-115) mg/dL Lactic Acid (0.5-2.0) mmol/L Calcium (8.4-10.2) mg/dL Magnesium (1.6-2.6) mg/dL Total Bilirubin (0.0-1.0) mg/dL Direct Bilirubin (0.0-0.5) mg/dL AST (5-37) U/L ALT (0-40) U/L Alkaline Phosphatase (39-117) U/L Troponin I High Sens 32.8 36.0 H (<3.5-35.0) ng/L Total Protein (6.5-8.0) g/dL Albumin (3.5-5.0) g/dL Urine Color Urine Appearance Urine pH (5.0-9.0) Ur Specific Florien (1.005-1.025) Urine Protein (Neg-Trace) mg/dL Urine Glucose (UA) (Negative) mg/dL Urine Ketones (Negative) mg/dL Urine Blood (Negative) Urine Nitrite (Negative) Ur Leukocyte Esterase (Negative) Urine RBC (0-2) /HPF Urine WBC (0-5) /HPF Ur Squamous Epith Cells (0-2) /HPF Urine Bacteria (None Seen) Hyaline Casts (0-2) /LPF Urine Opiates Screen (Not Detect) Ur Buprenorphine Scrn (Not Detect) ng/mL Ur Oxycodone Screen (Not Detect) ng/mL Urine Methadone Screen (Not Detect) ng/mL Urine Fentanyl Screen (Not Detect) Ur Barbiturates Screen (Not Detect) Ur Phencyclidine Scrn (Not Detect) Ur Amphetamines Screen (Not Detect) U Benzodiazepines Scrn (Not Detect) Urine Cocaine Screen (Not Detect) U Marijuana (THC) Screen (Not Detect) Ethyl Alcohol mg/dL Influenza Type A (PCR) (Negative) Influenza Type B (PCR) (Negative) RSV RNA Qual (PCR) (Negative) SARS-CoV-2 RNA (RT-PCR) (Negative) 12/08/24 12/08/24 12/08/24 Range/Units 11:31 16:35 21:03 WBC (4.8-10.8) X10*3/uL RBC (4.60-5.80) X10*6/uL Hgb (14.0-18.0) g/dl Hct (42.0-52.0) % MCV (80.0-98.0) fL MCH (27.0-33.0) pg MCHC (31.0-36.0) g/dl RDW (11.0-16.0) % Plt Count (160-400) X10*3/uL MPV (9.4-12.4) fL Immature Gran % (Auto) (0.0-0.4) % Neut % (Auto) (45-73) % Lymph % (Auto) (20-40) % [place] % (Auto) (2-11) % Eos % (Auto) (0-4) % Baso % (Auto) (0-2) % Lymph # (Auto) (1.2-4.9) X10*3/uL [place] # (Auto) (0.1-1.2) X10*3/uL Eos # (Auto) (0.0-0.4) X10*3/uL Baso # (Auto) (0.0-0.2) X10*3/uL Abs Immat Gran (auto) (0.00-0.03) X10*3/uL Absolute Neuts (auto) (2.0-8.3) x10*3/uL Absolute Nucleated RBC (0.0-0.012) X10*3/uL Nucleated RBC % (auto) (0.0-0.2) /100WBC Sodium (135-145) mmol/L Potassium (3.3-5.1) mmol/L Chloride (96-108) mmol/L Carbon Dioxide (22-29) mmol/L Anion Gap (12-20) BUN (9-16) mg/dL Creatinine (0.5-1.4) mg/dL Estim Creat Clear Calc Estimated GFR POC Glucose 131 H 141 H 124 H (60-115) mg/dL Random Glucose (60-115) mg/dL Lactic Acid (0.5-2.0) mmol/L Calcium (8.4-10.2) mg/dL Magnesium (1.6-2.6) mg/dL Total Bilirubin (0.0-1.0) mg/dL Direct Bilirubin (0.0-0.5) mg/dL AST (5-37) U/L ALT (0-40) U/L Alkaline Phosphatase (39-117) U/L Troponin I High Sens (<3.5-35.0) ng/L Total Protein (6.5-8.0) g/dL Albumin (3.5-5.0) g/dL Urine Color Urine Appearance Urine pH (5.0-9.0) Ur Specific Florien (1.005-1.025) Urine Protein (Neg-Trace) mg/dL Urine Glucose (UA) (Negative) mg/dL Urine Ketones (Negative) mg/dL Urine Blood (Negative) Urine Nitrite (Negative) Ur Leukocyte Esterase (Negative) Urine RBC (0-2) /HPF Urine WBC (0-5) /HPF Ur Squamous Epith Cells (0-2) /HPF Urine Bacteria (None Seen) Hyaline Casts (0-2) /LPF Urine Opiates Screen (Not Detect) Ur Buprenorphine Scrn (Not Detect) ng/mL Ur Oxycodone Screen (Not Detect) ng/mL Urine Methadone Screen (Not Detect) ng/mL Urine Fentanyl Screen (Not Detect) Ur Barbiturates Screen (Not Detect) Ur Phencyclidine Scrn (Not Detect) Ur Amphetamines Screen (Not Detect) U Benzodiazepines Scrn (Not Detect) Urine Cocaine Screen (Not Detect) U Marijuana (THC) Screen (Not Detect) Ethyl Alcohol mg/dL Influenza Type A (PCR) (Negative) Influenza Type B (PCR) (Negative) RSV RNA Qual (PCR) (Negative) SARS-CoV-2 RNA (RT-PCR) (Negative) 12/09/24 12/09/24 Range/Units 07:44 07:45 WBC (4.8-10.8) X10*3/uL RBC (4.60-5.80) X10*6/uL Hgb (14.0-18.0) g/dl Hct (42.0-52.0) % MCV (80.0-98.0) fL MCH (27.0-33.0) pg MCHC (31.0-36.0) g/dl RDW (11.0-16.0) % Plt Count (160-400) X10*3/uL MPV (9.4-12.4) fL Immature Gran % (Auto) (0.0-0.4) % Neut % (Auto) (45-73) % Lymph % (Auto) (20-40) % [place] % (Auto) (2-11) % Eos % (Auto) (0-4) % Baso % (Auto) (0-2) % Lymph # (Auto) (1.2-4.9) X10*3/uL [place] # (Auto) (0.1-1.2) X10*3/uL Eos # (Auto) (0.0-0.4) X10*3/uL Baso # (Auto) (0.0-0.2) X10*3/uL Abs Immat Gran (auto) (0.00-0.03) X10*3/uL Absolute Neuts (auto) (2.0-8.3) x10*3/uL Absolute Nucleated RBC (0.0-0.012) X10*3/uL Nucleated RBC % (auto) (0.0-0.2) /100WBC Sodium (135-145) mmol/L Potassium (3.3-5.1) mmol/L Chloride (96-108) mmol/L Carbon Dioxide (22-29) mmol/L Anion Gap (12-20) BUN (9-16) mg/dL Creatinine (0.5-1.4) mg/dL Estim Creat Clear Calc Estimated GFR POC Glucose (60-115) mg/dL Random Glucose (60-115) mg/dL Lactic Acid 1.8 (0.5-2.0) mmol/L Calcium (8.4-10.2) mg/dL Magnesium (1.6-2.6) mg/dL Total Bilirubin (0.0-1.0) mg/dL Direct Bilirubin (0.0-0.5) mg/dL AST (5-37) U/L ALT (0-40) U/L Alkaline Phosphatase (39-117) U/L Troponin I High Sens (<3.5-35.0) ng/L Total Protein (6.5-8.0) g/dL Albumin (3.5-5.0) g/dL Urine Color Urine Appearance Urine pH (5.0-9.0) Ur Specific [place]ien (1.005-1.025) Urine Protein (Neg-Trace) mg/dL Urine Glucose (UA) (Negative) mg/dL Urine Ketones (Negative) mg/dL Urine Blood (Negative) Urine Nitrite (Negative) Ur Leukocyte Esterase (Negative) Urine RBC (0-2) /HPF Urine WBC (0-5) /HPF Ur Squamous Epith Cells (0-2) /HPF Urine Bacteria (None Seen) Hyaline Casts (0-2) /LPF Urine Opiates Screen (Not Detect) Ur Buprenorphine Scrn (Not Detect) ng/mL Ur Oxycodone Screen (Not Detect) ng/mL Urine Methadone Screen (Not Detect) ng/mL Urine Fentanyl Screen (Not Detect) Ur Barbiturates Screen (Not Detect) Ur Phencyclidine Scrn (Not Detect) Ur Amphetamines Screen (Not Detect) U Benzodiazepines Scrn (Not Detect) Urine Cocaine Screen (Not Detect) U Marijuana (THC) Screen (Not Detect) Ethyl Alcohol mg/dL Influenza Type A (PCR) NEGATIVE (Negative) Influenza Type B (PCR) NEGATIVE (Negative) RSV RNA Qual (PCR) NEGATIVE (Negative) SARS-CoV-2 RNA (RT-PCR) NEGATIVE (Negative) Independent Interpretation I performed an independent interpretation of an: EKG and Plain X-Ray Interpretation: no visible fracture on shoulder xr ekg with Radiology Impression Discussion of test interpretation with radiology: I have reviewed the radiologist's reading. Radiologist Impression: CLINICAL HISTORY: pain, injury 5 view left shoulder Comparison: None provided Findings: Bones intact. No dislocations. Mild degenerative change of the AC joint and glenohumeral joint. No erosions. No radiopaque foreign body. IMPRESSION: 1. No acute findings External Record Review External record reviewed: Outpatient record, Prior outpatient labs and Prior outpatient radiology Tests considered The following testing was considered but not selected: considered CT head/neck but mechanism low, no tenderness or pain Prescription Management I considered prescription management with: Pain Medication and Antibiotic Chronic Conditions Patient?s care impacted by: Diabetes and Other (CHF) Social Determinants Patient?s care significantly limited by Social Determinants of Health including: Problems related to primary support group and Other Social Determinant of Health Critical Care Time Critical Care Time Critical Care Time: No Discharge Plan Discharge Clinical Impression: Polysubstance use disorder, Urinary tract infection, Fever, Hypoxia Acute shoulder pain Qualifiers: Laterality: left Qualified Code(s): M25.512 - Pain in left shoulder Patient Disposition: Admitted As Inpatient Interventions: Admission Worksheet (ED) Last Done: 12/09/24 12:05
--- NOTE | 2024-12-07 18:21 | ECG_ITS ---
Test Reason : med clearance Blood Pressure : */* mmHG Vent. Rate : 64 BPM Atrial Rate : 64 BPM P-R Int : 168 ms QRS Dur : 116 ms QT Int : 456 ms P-R-T Axes : 59 -14 -86 degrees QTcB Int : 470 ms Sinus rhythm with sinus arrhythmia with occasional Premature ventricular complexes T wave abnormality, consider inferolateral ischemia Prolonged QT Abnormal ECG When compared with ECG of 03-Nov-2022 11:08, Inverted T waves have replaced nonspecific T wave abnormality in Inferior leads Referred By: Kinza Tom Electronically Signed By: MARY LEDESMA MD
[2024-12-07 18:36] LABS: MANUAL DIFF FLAG NO
[2024-12-07 18:38] LABS: Hematocrit 40.5 % (42.0-52.0); Hemoglobin 13.3 g/dl (14.0-18.0); Imm Gran Abs Auto 0.02 X10*3/uL (0.00-0.03); Imm Gran Pct Auto 0.3 % (0.0-0.4); Lymphocytes Absolute Auto 2.8 X10*3/uL (1.2-4.9); Mean Corpuscular HGB Conc 32.8 g/dl (31.0-36.0); Mean Corpuscular Hemoglobin 29.2 pg (27.0-33.0); Mean Corpuscular Volume 88.8 fL (80.0-98.0); NRBC Abs Auto 0.000 X10*3/uL (0.0-0.012); NRBC Pct Auto 0.0 /100WBC (0.0-0.2); Platelet Count 223 X10*3/uL (160-400); Red Blood Count 4.56 X10*6/uL (4.60-5.80); White Blood Count 7.8 X10*3/uL (4.8-10.8)
[2024-12-07 18:59] LABS: Alanine Aminotransferase 20 U/L (0-40); Albumin Level 3.6 g/dL (3.5-5.0); Alkaline Phosphatase 127 U/L (39-117); Anion Gap 16 (12-20); Aspartate Amino Transferase 50 U/L (5-37); Blood Urea Nitrogen 17 mg/dL (9-16); Calcium 8.7 mg/dL (8.4-10.2); Carbon Dioxide 29 mmol/L (22-29); Chloride 103 mmol/L (96-108); Creatinine Clr Calc Pharmacy 90.1; Estimated Glomerular Filt Rate > 60; Magnesium 2.1 mg/dL (1.6-2.6); Potassium 3.8 mmol/L (3.3-5.1); Sodium 144 mmol/L (135-145); Total Protein 7.3 g/dL (6.5-8.0)
[2024-12-07 20:49] LABS: Appearance Urine Clear; Glucose Urine UA Negative (Negative); PH 7.0 (5.0-9.0); Specific Gravity - Urine 1.015 (1.005-1.025); UMIC TRIGGER UACC YES
[2024-12-07 20:56] LABS: UACC Culture Trigger YES
[2024-12-07 21:04] LABS: Cannabinoid Screen Urine POSITIVE (Not Detect)
--- NOTE | 2024-12-07 21:58 | PC.NURSE ---
nurse notified of low HR on monitor, pt noted to have HR of 30bpm, t wave depression noted. pt appeared to be sleeping, eyes closed, snoring noted SpO2 100% on RA. Upon waking patient, pt HR increased to 77bpm NSR on monitor. EKG and troponin obtained. PA/ charge nurse notified.
[2024-12-07 22:26] LABS: Troponin-I High Sensitivity 32.8 ng/L (<3.5-35.0)
[2024-12-07] MEDS: Sulfamethox/Trimeth 800/160 TABLET 1 TAB PO (22:50)
[2024-12-08 00:24] LABS: Troponin-I High Sensitivity 36.0 ng/L (<3.5-35.0)
--- NOTE | 2024-12-08 01:14 | PC.NURSE ---
pt brought from ed28 to ed10 placed on pacer pads and cardiac monitoring, vitals as documented, wilmer ramirez aware.
[2024-12-08 01:15] VITALS: BP 186/90; PULSE 72; RESP 14; O2SAT 97
--- NOTE | 2024-12-08 05:19 | PC.NURSE ---
pt screaming d/t leg cramping/pain states this is chronic and takes meds for it but couldnt state name. pharmacy history shows 300mg tid but unable to confirm this. per MD Rowan verbal order to give 300mg PO Gabapentin 1 time dose at this time.
[2024-12-08] MEDS: Sulfamethox/Trimeth 800/160 TABLET 1 TAB PO ×2 (05:23→16:52)
[2024-12-08 06:17] VITALS: BP 116/51; PULSE 83; RESP 16; TEMP 36.2; O2SAT 98
--- NOTE | 2024-12-08 09:02 | PC.NURSE ---
Addendum entered by Kinza Funk RN 12/08/24 09:22: Reviewed Pt medications history on file in comparison to medications verified via Pharmacy with ZARA Bhakta. Verbal orders received to enter the following medications for ordering: ASA 81 mg Atorvasatin 80mg Colace 200mg Gabapentin 300mg TID Hydroxazine 50mg PRN Lantus 30 units BID Losartan 50mg Metformin 500mg ER BID Tamsulosin 0.4mg Miralax PRN Aspart 5 units SQ plus Sliding Scale. ZARA Bhakta made aware med are ready to be ordered. admissions Eleanor advised via [employer] that med rec is now complete. Original Note: Per request of Admissions, med rec in need of completion. This RN attempts to confirm medications with Pt using Clerk [employer] Service. Pt unable to confirm current medications and doses with the exception of taking Lantus 30 units BID. Pt reports he fills his medications at [facility]. Call placed to [facility]. Spoke with with Pharmacists [place] who is able to confirm the following meds as most recently filled: 10/09/24 Lantus 30 units BID Aspart 5 units SQ TID with meals along with sliding scale BS 151-200 add 2 units BS 201-250 add 4 units BS 251-300 add 6 units BS 301-350 add 8 units BS >350 add 10 units and call . 09/01/24 Losartan 50mg QD 90 day supply Metformin 500mg ER BID 90 day supply [place] reports she notes that Pt may be filling at [facility] on [facility] [phone] as she can see they have transferred Rx out to this location in the past. Call placed to [facility], [facility] location. Pt has not filled any Rx at this location since September of 2023. Will review med verification with ED provider.
--- NOTE | 2024-12-08 10:09 | PC.NURSE ---
Diet order placed. Per COPY CHIEF Yony, 2000 calorie diet to be ordered.
--- NOTE | 2024-12-08 10:43 | MHC.CARE ---
CC called to leave their information to coordinate with the inpatient social work team when Pt is admitted to the psychiatric unit. Pt's neurocritical care physician is Mickie Blum
--- NOTE | 2024-12-08 10:53 | PC.NURSE ---
Pt with multiple medication due for administration at 0945. At this time, medications/dose have not been verified by pharmacy. Will administer doses as soon as pharmacy verifies.
--- NOTE | 2024-12-08 10:55 | PHA.MEDREC ---
Pharmacy Consult ? Medication Reconciliation Pharmacy has reviewed the medication reconciliation done by nursing.
[2024-12-08 11:35] LABS: Glucose, Whole Blood 131 mg/dL (60-115)
[2024-12-08 11:37] VITALS: BP 160/98
[2024-12-08] MEDS: Aspirin Enteric Coated 81 MG TABLET.DR PO (11:37)
[2024-12-08 11:40] VITALS: BP 153/48; PULSE 94; RESP 21; TEMP 37.1; O2SAT 95
[2024-12-08 12:40] LABS: Glucose, Whole Blood 131 mg/dL (60-115)
[2024-12-08 12:41] LABS: Glucose, Whole Blood 122 mg/dL (60-115)
--- NOTE | 2024-12-08 12:52 | PC.NURSE ---
Spoke with Edelmira in Care Team. Pt not appropriate for inpatient psych admission. Pt is cleared from a Care Team perspective at this time and will become a Case Management case. radio journalist made aware of Pts new status.
--- NOTE | 2024-12-08 12:52 | MHC.CARE ---
Pt has been reassessed by the CARE team and does not meet IPLOC. Pt's disposition is now case management.
--- NOTE | 2024-12-08 12:53 | MHC.CARE ---
Report filed with adult protective services secondary to inability to care for himself.
[2024-12-08 13:40] VITALS: BP 168/67; PULSE 83; RESP 17; O2SAT 94
[2024-12-08 16:38] LABS: Glucose, Whole Blood 141 mg/dL (60-115)
[2024-12-08 21:00] VITALS: BP 156/80; PULSE 83; RESP 16; TEMP 37.9; O2SAT 97
--- NOTE | 2024-12-08 21:35 | MHC.CM.ED ---
CM attempted to meet with patient to discuss discharge planning. Pt mumbling. Falls asleep. Pt is very unkempt and malodorous. Unable to participate in CM interview. Provider aware. Pt was unable to participate in PT today. Too lethargic. PT will try again tomorrow. Records reviewed. Pt uses a wheelchair and has a walker. According to CARE team assessment, pt uses wheelchair when he uses drugs so he doesn't fall. Pt uses drugs daily. Pt admits to using many drugs. Tox screen positive for opiates, fentanyl, cocaine and marijuana. Pt did have a EDITOR DICTIONARY, but the EDITOR DICTIONARY quit due to patient drug use. Pt uses heroin daily. According to CARE team assessment, drug dealers live in patient's apartment. Pt would not voluntarily go to [facility] psych, so patient was referred to CM. Pt has a sample case porter at [facility]. Pt was seen in the community by [facility]. Pt will be difficult to place due to continued daily drug use if PT recommends STR. Pt does have Medicaid PCC. CM is unsure if patient would consent to STR. Will re-evaluate tomorrow after PT assessment.
--- NOTE | 2024-12-08 21:37 | MHC.EDTECH ---
Performed POC and vitals on patient. Upon entering the room, pt was found soaked in urine from head to toe. Sheets and pads were saturated. Very strong odor. Pt stated that he rang to use a urinal but no one answered . Urinal was not within reach, and pt is non-ambulatory. Complete bed bath performed. Fresh linens, pads and gown. Male PureWick placed.
[2024-12-08] MEDS: Insulin Glargine,Hum.rec.anlog 100 UNIT/ML 10 ML VIAL 30 UNIT SUBCUT (21:42)
[2024-12-08 22:01] LABS: Glucose, Whole Blood 124 mg/dL (60-115)
[2024-12-09] VITALS (12 sets, daily range): BP systolic 145–182; BP diastolic 69–96; PULSE 16–116; RESP 14–26; TEMP 36.6–38.3; O2SAT 86–98
[2024-12-09] MEDS: Sulfamethox/Trimeth 800/160 TABLET 1 TAB PO (04:21)
--- NOTE | 2024-12-09 07:34 | PC.NURSE ---
Pt lethargic, only wakes briefly to phs. stim.; pt hot to the touch, temp 100.1PO, HR 116, RR 24, SAO2 86% RA with audible rhonchi; made aware and sepsis protocol begun; pt ST with frequent PVC's; placed on 4 ltr NC 92% @ this time; 2nd IV placed; will monitor/tx per orders
--- NOTE | 2024-12-09 07:41 | ECG_ITS ---
Test Reason : SHORTNESS OF BREATH Blood Pressure : */* mmHG Vent. Rate : 92 BPM Atrial Rate : 92 BPM P-R Int : 144 ms QRS Dur : 116 ms QT Int : 378 ms P-R-T Axes : 58 -24 101 degrees QTcB Int : 467 ms Sinus rhythm with occasional Premature ventricular complexes and Fusion complexes Possible Left atrial enlargement Left axis deviation Nonspecific T wave abnormality Prolonged QT Abnormal ECG When compared with ECG of 07-Dec-2024 21:42, Fusion complexes are now Present Nonspecific T wave abnormality no longer evident in Inferior leads T wave inversion no longer evident in Anterior leads Referred By: Meño Hawkins Electronically Signed By: MARY LEDESMA MD
[2024-12-09] MEDS: cefEPime HCl/D5W 2 GM/50 ML PIGGYBACK IV (08:08)
[2024-12-09] MEDS: SODIUM CHLORIDE 3063.87 ML IV (08:09)
[2024-12-09 08:43] LABS: Resp Syncy Virus RNA Qual PCR NEGATIVE (Negative); SARS COV2 PCR INHOUSE NEGATIVE (Negative)
--- NOTE | 2024-12-09 10:11 | PM.IMHP ---
History of Present Illness Date of Service: 12/09/24 Chief Complaint: fever 59M PMH polysubstance dependence, hfref EF 20-25%, DM, vt/vf cardiac arrest 10/2022, cva with left hemiparesis, wheelchair bound, morbid obesity, presented 12/07/2024 to the ED after falling from his wheelchair. Patient was being evaluated for worsening depression and anxiety and increased use of heroin and cocaine was trying to get admitted to [facility] when he fell out of his wheelchair onto his left shoulder. Was sent to [facility] ruled out for trauma and continued to wait for psychiatric bed and early a.m. 12/09/24 noted to be febrile with worsening mental status consistent with sepsis. Patient unable to provide history. UA noted to be positive. Also noted to be hypoxic. Review of Systems Review of Systems: Yes all other systems are reviewed and are negative [facility] Medical History Substance abuse Type 2 diabetes mellitus with unspecified complications Essential hypertension Unstable angina History of CVA (cerebrovascular accident) Diabetes HTN (hypertension) Morbid obesity Chest pain Family History Other CAD (coronary artery disease) Diabetes HTN (hypertension) Surgical History H/O hand surgery Social History Household Members: None Housing: Apartment Do you presently have visiting nurse or other home services: Yes ([facility]) Patient Tobacco Use Status: Current everyday Tobacco user Tobacco use type: Cigarette Smoked in Last 30 Days: No e-Cigarette/Vaping Use: Never Used Second Hand Smoke Exposure: No Use of substances other than those prescribed or required for medical reasons: Yes Substance Use Type: Heroin Substance Use Frequency: Daily Last Used Substance: Hours (ago) Any prior treatment program specific to substance use: No Advance Directives: Yes Advance Directives on File: Yes Advance Directives Date on File: 11/25/23 Do you have a plan to hurt others: No Plan service: No Current occupational status: unemployed Meds Allergies Allergy/AdvReac Type Severity Reaction Status Date / Time Penicillins (PCN) Allergy Intermediate HIVES Verified 12/07/24 17:12 Active Medications: Current Medications Acetaminophen (Acetaminophen 325 Mg Tablet) 650 mg PO Q6H PRN PRN Reason: Pain, Mild 1-3,fever,headache Aspirin (Aspirin Enteric Coated 81 Mg Tablet.Dr) 81 mg PO DAILY [facility] Last Admin: 12/08/24 11:37 Dose: 81 mg Atorvastatin Calcium (Atorvastatin Calcium 80 Mg Tablet) 80 mg PO BEDTIME [facility] Last Admin: 12/08/24 21:42 Dose: 80 mg Calcium Carbonate (Calcium Carbonate 750 Mg Tab.Chew) 750 mg PO Q4H PRN PRN Reason: Heartburn Ceftriaxone Sodium (Ceftriaxone Sodium 1 Gm Vial) 1 gm IVPUSH Q24H [facility] Dextrose (Dextrose 50 % 25 Gm/50 Ml Syringe) 25 gm IVPUSH Q15M PRN; Protocol PRN Reason: per Hypoglycemia Standing Ord. Docusate Sodium (Docusate Sodium 100 Mg Capsule) 200 mg PO BEDTIME PRN PRN Reason: Constipation Enoxaparin Sodium (Enoxaparin Sodium 40 Mg/0.4 Ml Syringe) 40 mg SUBCUT Q24H [facility] Gabapentin (Gabapentin 300 Mg Capsule) 300 mg PO TID [facility] Last Admin: 12/08/24 21:42 Dose: 300 mg Glucose (Glucose Gel 15 Gm Gel..Gram.) 15 gm PO Q15M PRN; Protocol PRN Reason: per Hypoglycemia Standing Ord. Hydroxyzine HCl (Hydroxyzine Hcl 50 Mg Tablet) 50 mg PO BID PRN PRN Reason: Anxiety Insulin Glargine (Insulin Glargine,Hum.Rec.Anlog 100 Unit/Ml 10 Ml Vial) 30 unit SUBCUT BID [facility] Last Admin: 12/08/24 21:42 Dose: 30 unit Losartan Potassium (Losartan Potassium 50 Mg Tablet) 50 mg PO DAILY [facility]; Protocol Last Admin: 12/08/24 11:37 Dose: 50 mg Magnesium Hydroxide (Milk Of Magnesia 30 Ml Oral.Susp) 30 ml PO DAILY PRN PRN Reason: Constipation Melatonin (Melatonin 3 Mg Tablet) 6 mg PO BEDTIME PRN PRN Reason: Insomnia Metformin HCl (Metformin Hcl Er 500 Mg Tab.Er.24h) 500 mg PO BID [facility] Last Admin: 12/08/24 21:42 Dose: 500 mg Polyethylene Glycol (Polyethylene Glycol 3350 17 Gm Powd.Pack) 17 gm PO DAILY PRN PRN Reason: Constipation Sodium Chloride (0.9 % Sodium Chloride Flush 3 Ml Syringe) 3 ml IVFLUSH QSHIFT [facility] Tamsulosin HCl (Tamsulosin Hcl 0.4 Mg Capsule) 0.4 mg PO DAILY [facility] Last Admin: 12/08/24 11:37 Dose: 0.4 mg Home Medications ?Medication ?Instructions ?Recorded ?Confirmed ?Last Taken ?Type aspirin 81 mg tablet,delayed 81 mg PO DAILY 01/18/23 12/08/24 Unknown History release insulin glargine 100 unit/mL (3 30 unit subcut BID 01/18/23 12/08/24 Unknown History mL) subcutaneous pen (Lantus Solostar U-100 Insulin) atorvastatin 80 mg tablet 80 mg PO BEDTIME 11/13/23 12/08/24 Unknown History docusate sodium 100 mg capsule 200 mg PO BEDTIME PRN Constipation 11/13/23 12/08/24 Unknown History (Colace) gabapentin 300 mg capsule 300 mg PO TID 11/13/23 12/08/24 Unknown History hydroxyzine HCl 50 mg tablet 50 mg PO BID PRN Anxiety 11/13/23 12/08/24 Unknown History losartan 50 mg tablet 50 mg PO DAILY 11/13/23 12/08/24 Unknown History metformin 500 mg tablet,extended 500 mg PO BID 11/13/23 12/08/24 Unknown History release 24 hr polyethylene glycol 3350 17 17 g PO DAILY PRN Constipation 11/13/23 12/08/24 Unknown History gram/dose oral powder (Miralax) tamsulosin 0.4 mg capsule 0.4 mg PO DAILY 11/13/23 12/08/24 Unknown History insulin aspart U-100 100 unit/mL 5 sliding scale dose subcut TID 12/08/24 12/08/24 Unknown History (3 mL) subcutaneous pen Physical Exam Vital Signs and Narrative: Vital Signs: Last Vital Signs Temp 98.9 F 12/09/24 09:00 Pulse 96 12/09/24 09:00 Resp 19 12/09/24 09:00 BP 174/69 H 12/09/24 09:20 Pulse Ox 96 12/09/24 09:00 O2 Del Method Room Air 12/09/24 09:00 O2 Flow Rate 3 12/09/24 09:00 BMI result Body Mass Index 37.5 Obtunded, unkempt, lungs diminished, abdomen soft and nontender Results Labs 12/07/24 18:32 12/07/24 18:32 Labs: Laboratory Results - last 24 hr 12/07/24 12/07/24 12/08/24 17:08 22:13 11:31 POC Glucose 131 H 122 H 131 H Lactic Acid Influenza Type A (PCR) Influenza Type B (PCR) RSV RNA Qual (PCR) SARS-CoV-2 RNA (RT-PCR) 12/08/24 12/08/24 12/09/24 16:35 21:03 07:44 POC Glucose 141 H 124 H Lactic Acid 1.8 Influenza Type A (PCR) Influenza Type B (PCR) RSV RNA Qual (PCR) SARS-CoV-2 RNA (RT-PCR) 12/09/24 07:45 POC Glucose Lactic Acid Influenza Type A (PCR) NEGATIVE Influenza Type B (PCR) NEGATIVE RSV RNA Qual (PCR) NEGATIVE SARS-CoV-2 RNA (RT-PCR) NEGATIVE Assessment and Plan (1) Chronic HFrEF (heart failure with reduced ejection fraction): Status: Acute Plan 9M PMH polysubstance dependence, hfref EF 20-25%, DM, vt/vf cardiac arrest 10/2022, cva with left hemiparesis, wheelchair bound, morbid obesity, presented 12/07/2024 to the ED after falling from his wheelchair. Became septic on 12/09/2024 in the ED. Acute metabolic encephalopathy due to sepsis (not severe) due to urinary tract infection Ceftriaxone, follow up cultures Acute hypoxic respiratory failure Suspect due to sepsis, wean O2 as tolerated Diabetes Basal bolus insulin Polysubstance dependence Addiction eval History of CVA with left hemiparesis Aspirin statin Chronic systolic CHF Monitor for fluid overload DVT prophylaxis with Lovenox Full Code Quality Stroke Does the patient have a stroke diagnosis?: No VTE Prior VTE?: No VTE Risk Level:: Medical - moderate - high VTE Device Contraindication: Treatment Not Indicated VTE Drug Contraindication: N/A - Med Ordered
--- NOTE | 2024-12-09 10:33 | PC.NURSE ---
Pt's fever resolved and VS stabilized at this time; pt has put out 600ml dark, johan urine; pt remains somnolent; hospitalist contacted and it was decided to hold PO intake until pt is more awake to avoid aspiration; SQ insulin held at this time secondary to temporary NPO status; will cont to monitor POC BG levels
[2024-12-09 10:57] LABS: Hematocrit 42.8 % (42.0-52.0); Hemoglobin 14.6 g/dl (14.0-18.0); Mean Corpuscular HGB Conc 34.1 g/dl (31.0-36.0); Mean Corpuscular Hemoglobin 28.9 pg (27.0-33.0); Mean Corpuscular Volume 84.6 fL (80.0-98.0); NRBC Abs Auto 0.000 X10*3/uL (0.0-0.012); NRBC Pct Auto 0.0 /100WBC (0.0-0.2); Platelet Count 225 X10*3/uL (160-400); Red Blood Count 5.06 X10*6/uL (4.60-5.80); White Blood Count 16.5 X10*3/uL (4.8-10.8)
[2024-12-09 11:01] LABS: VBG HCO3 22 mmol/L (22-26); VBG O2 % Saturation 100.0 %
[2024-12-09 11:03] LABS: Venous Blood Gas Refer to POC result
[2024-12-09 11:09] LABS: Ammonia 49 umol/L (13-55)
[2024-12-09 11:23] LABS: Alanine Aminotransferase 17 U/L (0-40); Albumin Level 3.8 g/dL (3.5-5.0); Alkaline Phosphatase 120 U/L (39-117); Anion Gap 13 (12-20); Aspartate Amino Transferase 53 U/L (5-37); B Type Natriuretic Peptide 141 pg/mL (<100); Blood Urea Nitrogen 15 mg/dL (9-16); Calcium 9.0 mg/dL (8.4-10.2); Carbon Dioxide 22 mmol/L (22-29); Chloride 108 mmol/L (96-108); Creatinine Clr Calc Pharmacy 96.1; Estimated Glomerular Filt Rate > 60; Potassium 3.5 mmol/L (3.3-5.1); Sodium 139 mmol/L (135-145); Total Protein 7.6 g/dL (6.5-8.0)
--- NOTE | 2024-12-09 11:52 | MHC.EDTECH ---
Bed pad changed and repositioned
[2024-12-09 12:04] LABS: Glucose, Whole Blood 96 mg/dL (60-115)
--- NOTE | 2024-12-09 13:03 | MHC.CM.PN ---
PT NO LONGER ED CONSULT, ADMITTED FOR AMS/SEPSIS/UTI.
--- NOTE | 2024-12-09 13:55 | PC.NURSE ---
Pt awake spontaneously; tolerated PO fluids without effortful swallow; made aware; will admin. PO meds now as ordered
[2024-12-09] MEDS: Aspirin Enteric Coated 81 MG TABLET.DR PO (14:02)
--- NOTE | 2024-12-09 16:26 | MHC.RECOVRN ---
Pt very somnolent at this time, attempted to talk to pt however he is resting in bed with eyes closed and not engaging with t/w, appears to be asleep, respirations even+unlabored. Stong odor of urine present. Will approach again pt at a different time.
[2024-12-09] MEDS: 0.9 % Sodium Chloride Flush 3 ML SYRINGE IVFLUSH (17:28)
[2024-12-09 17:40] LABS: Glucose, Whole Blood 104 mg/dL (60-115)
[2024-12-09 20:44] LABS: Glucose, Whole Blood 133 mg/dL (60-115)
[2024-12-09] MEDS: Insulin Glargine,Hum.rec.anlog 100 UNIT/ML 10 ML VIAL 30 UNIT SUBCUT (21:28)
[2024-12-10] VITALS (11 sets, daily range): BP systolic 101–169; BP diastolic 55–91; PULSE 47–102; RESP 14–18; TEMP 36.3–37.2; O2SAT 96–99; BMI 35.8
--- NOTE | 2024-12-10 02:22 | PC.NURSE ---
pt remains sleeping at this time, denies pain or any needs with nursing, call powell within reach, male purewic remains intact, urine output noted at this time.
[2024-12-10] MEDS: 0.9 % Sodium Chloride Flush 3 ML SYRINGE IVFLUSH ×4 (02:23→22:00)
[2024-12-10 04:33] LABS: Hematocrit 46.6 % (42.0-52.0); Hemoglobin 15.8 g/dl (14.0-18.0); Mean Corpuscular HGB Conc 33.9 g/dl (31.0-36.0); Mean Corpuscular Hemoglobin 28.8 pg (27.0-33.0); Mean Corpuscular Volume 85.0 fL (80.0-98.0); NRBC Abs Auto 0.000 X10*3/uL (0.0-0.012); NRBC Pct Auto 0.0 /100WBC (0.0-0.2); Platelet Count 199 X10*3/uL (160-400); Red Blood Count 5.48 X10*6/uL (4.60-5.80); White Blood Count 13.7 X10*3/uL (4.8-10.8)
[2024-12-10 04:48] LABS: Anion Gap 14 (12-20); Blood Urea Nitrogen 17 mg/dL (9-16); Calcium 9.1 mg/dL (8.4-10.2); Carbon Dioxide 21 mmol/L (22-29); Chloride 107 mmol/L (96-108); Creatinine Clr Calc Pharmacy 98.2; Estimated Glomerular Filt Rate > 60; Potassium 3.9 mmol/L (3.3-5.1); Sodium 138 mmol/L (135-145)
--- NOTE | 2024-12-10 05:02 | MHC.EDTECH ---
This video game producer emptied 800 ml of yellow urine from patient's purewick.
[2024-12-10 07:56] LABS: Glucose, Whole Blood 126 mg/dL (60-115)
--- NOTE | 2024-12-10 08:47 | HO.PM.IMPN ---
Subjective Subjective Date of Service: 12/10/24 Interval History: no complaints Physical Exam Exam: Exam: General: alert, no acute distress Resp: diminished bilateral, no accessory muscles used CVS: S1,S2,RRR GI: soft, non tender, non distended Neuro: motor grossly intact, alert Vital Signs: Vital Signs: Last Vital Signs Temp 97.5 F 12/10/24 08:00 Pulse 88 12/10/24 08:00 Resp 18 12/10/24 08:00 BP 153/85 H 12/10/24 08:00 Pulse Ox 99 12/10/24 08:00 O2 Del Method Nasal Cannula 12/10/24 08:00 O2 Flow Rate 2 12/10/24 08:00 BMI result Body Mass Index 35.8 Objective Data Active Medications Acetaminophen (Acetaminophen 325 Mg Tablet) 650 mg PO Q6H PRN PRN Reason: Pain, Mild 1-3,fever,headache Last Admin: 12/09/24 21:28 Dose: 650 mg Documented By: PIETRO Aspirin (Aspirin Enteric Coated 81 Mg Tablet.Dr) 81 mg PO DAILY [facility] Last Admin: 12/09/24 14:02 Dose: 81 mg Documented By: NERY Atorvastatin Calcium (Atorvastatin Calcium 80 Mg Tablet) 80 mg PO BEDTIME [facility] Last Admin: 12/09/24 21:28 Dose: 80 mg Documented By: PIETRO Calcium Carbonate (Calcium Carbonate 750 Mg Tab.Chew) 750 mg PO Q4H PRN PRN Reason: Heartburn Ceftriaxone Sodium (Ceftriaxone Sodium 1 Gm Vial) 1 gm IVPUSH Q24H [facility] Dextrose (Dextrose 50 % 25 Gm/50 Ml Syringe) 25 gm IVPUSH Q15M PRN; Protocol PRN Reason: per Hypoglycemia Standing Ord. Docusate Sodium (Docusate Sodium 100 Mg Capsule) 200 mg PO BEDTIME PRN PRN Reason: Constipation Enoxaparin Sodium (Enoxaparin Sodium 40 Mg/0.4 Ml Syringe) 40 mg SUBCUT Q24H [facility] Gabapentin (Gabapentin 300 Mg Capsule) 300 mg PO TID [facility] Last Admin: 12/09/24 21:28 Dose: 300 mg Documented By: PIETRO Glucose (Glucose Gel 15 Gm Gel..Gram.) 15 gm PO Q15M PRN; Protocol PRN Reason: per Hypoglycemia Standing Ord. Hydroxyzine HCl (Hydroxyzine Hcl 50 Mg Tablet) 50 mg PO BID PRN PRN Reason: Anxiety Insulin Glargine (Insulin Glargine,Hum.Rec.Anlog 100 Unit/Ml 10 Ml Vial) 30 unit SUBCUT BID [facility] Last Admin: 12/09/24 21:28 Dose: 30 unit Documented By: PIETRO Losartan Potassium (Losartan Potassium 50 Mg Tablet) 50 mg PO DAILY [facility]; Protocol Last Admin: 12/09/24 14:03 Dose: 50 mg Documented By: NERY Magnesium Hydroxide (Milk Of Magnesia 30 Ml Oral.Susp) 30 ml PO DAILY PRN PRN Reason: Constipation Melatonin (Melatonin 3 Mg Tablet) 6 mg PO BEDTIME PRN PRN Reason: Insomnia Metformin HCl (Metformin Hcl Er 500 Mg Tab.Er.24h) 500 mg PO BID [facility] Last Admin: 12/09/24 21:28 Dose: 500 mg Documented By: PIETRO Polyethylene Glycol (Polyethylene Glycol 3350 17 Gm Powd.Pack) 17 gm PO DAILY PRN PRN Reason: Constipation Sodium Chloride (0.9 % Sodium Chloride Flush 3 Ml Syringe) 3 ml IVFLUSH QSHIFT [facility] Last Admin: 12/10/24 02:23 Dose: 3 ml Documented By: PIETRO Tamsulosin HCl (Tamsulosin Hcl 0.4 Mg Capsule) 0.4 mg PO DAILY [facility] Last Admin: 12/09/24 14:02 Dose: 0.4 mg Documented By: NERY Labs 12/10/24 04:24 12/10/24 04:24 Labs: Laboratory Results - last 24 hr 12/09/24 12/09/24 12/09/24 10:49 10:56 12:00 MCV 84.6 MCH 28.9 MCHC 34.1 RDW 14.1 Plt Count 225 MPV 10.3 Absolute Nucleated RBC 0.000 Nucleated RBC % (auto) 0.0 VBG pH 7.58 H VBG pCO2 23 VBG pO2 229 VBG HCO3 22 VBG O2 Saturation 100.0 VBG Base Excess 2.2 Anion Gap 13 Estim Creat Clear Calc 96.1 Estimated GFR > 60 POC Glucose 96 Random Glucose 109 Calcium 9.0 Total Bilirubin 1.2 H Direct Bilirubin 0.4 AST 53 H ALT 17 Alkaline Phosphatase 120 H Ammonia 49 B-Natriuretic Peptide 141 H Total Protein 7.6 Albumin 3.8 12/09/24 12/09/24 12/10/24 17:36 20:41 04:24 MCV 85.0 MCH 28.8 MCHC 33.9 RDW 14.1 Plt Count 199 MPV 10.7 Absolute Nucleated RBC 0.000 Nucleated RBC % (auto) 0.0 VBG pH VBG pCO2 VBG pO2 VBG HCO3 VBG O2 Saturation VBG Base Excess Anion Gap 14 Estim Creat Clear Calc 98.2 Estimated GFR > 60 POC Glucose 104 133 H Random Glucose 94 Calcium 9.1 Total Bilirubin Direct Bilirubin AST ALT Alkaline Phosphatase Ammonia B-Natriuretic Peptide Total Protein Albumin 12/10/24 07:45 MCV MCH MCHC RDW Plt Count MPV Absolute Nucleated RBC Nucleated RBC % (auto) VBG pH VBG pCO2 VBG pO2 VBG HCO3 VBG O2 Saturation VBG Base Excess Anion Gap Estim Creat Clear Calc Estimated GFR POC Glucose 126 H Random Glucose Calcium Total Bilirubin Direct Bilirubin AST ALT Alkaline Phosphatase Ammonia B-Natriuretic Peptide Total Protein Albumin Microbiology Microbiology Results: Microbiology 12/07/24 20:56 Urine Culture - Preliminary Urine clean catch - Clean Catch Midstream Gram negative rossy Assessment and Plan (1) Cocaine abuse: Status: Acute Plan 59M PMH polysubstance dependence, hfref EF 20-25%, DM, vt/vf cardiac arrest 10/2022, cva with left hemiparesis, wheelchair bound, morbid obesity, presented 12/07/2024 to the ED after falling from his wheelchair. Became septic on 12/09/2024 in the ED. Acute metabolic encephalopathy due to sepsis (not severe) due to urinary tract infection Ceftriaxone, follow up cultures mental status improving Acute hypoxic respiratory failure Suspect due to sepsis, wean O2 as tolerated Diabetes Basal bolus insulin Polysubstance dependence Addiction eval History of CVA with left hemiparesis Aspirin statin Chronic systolic CHF Monitor for fluid overload DVT prophylaxis with Lovenox Full Code reason for continued hospitalization:cultures Quality Stroke Does the patient have a stroke diagnosis?: No VTE Prior VTE?: No VTE Risk Level:: Medical - moderate - high VTE Device Contraindication: Treatment Not Indicated VTE Drug Contraindication: N/A - Med Ordered
[2024-12-10] MEDS: Aspirin Enteric Coated 81 MG TABLET.DR PO (08:54)
[2024-12-10] MEDS: Insulin Glargine,Hum.rec.anlog 100 UNIT/ML 10 ML VIAL 30 UNIT SUBCUT ×2 (08:55→21:59)
[2024-12-10] MEDS: Milk of Magnesia 30 ML ORAL.SUSP PO (09:59)
[2024-12-10] MEDS: Albuterol/Iprat 2.5/0.5MG 3 ML AMPUL.NEB INHALE ×2 (10:04→15:34)
--- NOTE | 2024-12-10 10:26 | HO.ADDICTCON ---
History of Present Illness Date of Service: 12/10/2024 Chief Complaint: sepsis Reason for Consult: OUD Sources of Information: patient interviewed and chart reviewed HPI Narrative: Patient is a 59 year old Lao speaking male with history that includes CVA and left sided hemiparesis, DM, and substance use. Presented to [facility] after falling out of wheelchair, while in ED mentation worsened, found to be febrile and hypoxic, therefore medically admitted. Consult requested due to ongoing substance use. Patient seen in room 467. He is awake, alert, engaged in interview. He reports acute withdrawal sx, stating that everything hurts and grimacing when speaking to t/w Reports using 3-4 bundles fentanyl daily Denies any history of overdose Previously prescribed buprenorphine--today declining to restart, requesting methadone Denies any alcohol use Labs reviewed Hepatitis and HIV screens done 09/2024 UDS+opi, fent, cocaine, cannabis Past Psychiatric History: Patient denies IP LOC, reports went to detox 1 time approximately 5-6 years ago at [facility], and left after 1 day. Review of Systems Constitutional: Reports as per HPI, Reports body ache(s), Reports chills and Reports malaise Gastrointestinal: Denies loose stools, Reports nausea and Denies vomiting Musculoskeletal: Reports myalgias and Reports arthralgias Diagnostics Vital Signs (24Hr): Vital Signs - 24 hr 12/09/24 10:40 12/09/24 13:59 12/09/24 14:03 Temperature 98.2 F 97.8 F Pulse Rate 16 L 98 Respiratory Rate 16 Blood Pressure 177/89 H 182/89 H 182/89 H Pulse Oximetry 98 98 Oxygen Delivery Method Nasal Cannula Room Air Oxygen Flow Rate 2 12/09/24 15:33 12/09/24 19:32 12/09/24 21:31 Temperature 97.9 F 99.4 F 98.5 F Pulse Rate 86 96 91 Respiratory Rate 14 15 16 Blood Pressure 159/79 H 153/72 H 145/72 H Pulse Oximetry 97 97 98 Oxygen Delivery Method Nasal Cannula Room Air Nasal Cannula Oxygen Flow Rate 2 2 12/09/24 21:32 12/10/24 02:20 12/10/24 05:19 Temperature 98.9 F 97.8 F Pulse Rate 102 H 84 Respiratory Rate 14 16 Blood Pressure 146/76 H 159/89 H Pulse Oximetry 96 97 97 Oxygen Delivery Method Nasal Cannula Nasal Cannula Nasal Cannula Oxygen Flow Rate 1 1 1 12/10/24 06:34 12/10/24 08:00 12/10/24 10:06 Temperature 97.6 F 97.5 F Pulse Rate 97 88 47 L Respiratory Rate 18 18 18 Blood Pressure 150/77 H 153/85 H Pulse Oximetry 98 99 Oxygen Delivery Method Nasal Cannula Nasal Cannula Oxygen Flow Rate 2 2 BMI result Body Mass Index 35.8 Labs 12/10/24 04:24 12/10/24 04:24 Labs: Laboratory Results - last 48 hr 12/07/24 12/07/24 12/08/24 17:08 22:13 11:31 WBC RBC Hgb Hct MCV MCH MCHC RDW Plt Count MPV Absolute Nucleated RBC Nucleated RBC % (auto) VBG pH VBG pCO2 VBG pO2 VBG HCO3 VBG O2 Saturation VBG Base Excess Sodium Potassium Chloride Carbon Dioxide Anion Gap BUN Creatinine Estim Creat Clear Calc Estimated GFR POC Glucose 131 H 122 H 131 H Random Glucose Lactic Acid Calcium Total Bilirubin Direct Bilirubin AST ALT Alkaline Phosphatase Ammonia B-Natriuretic Peptide Total Protein Albumin Influenza Type A (PCR) Influenza Type B (PCR) RSV RNA Qual (PCR) SARS-CoV-2 RNA (RT-PCR) 12/08/24 12/08/24 12/09/24 16:35 21:03 07:44 WBC RBC Hgb Hct MCV MCH MCHC RDW Plt Count MPV Absolute Nucleated RBC Nucleated RBC % (auto) VBG pH VBG pCO2 VBG pO2 VBG HCO3 VBG O2 Saturation VBG Base Excess Sodium Potassium Chloride Carbon Dioxide Anion Gap BUN Creatinine Estim Creat Clear Calc Estimated GFR POC Glucose 141 H 124 H Random Glucose Lactic Acid 1.8 Calcium Total Bilirubin Direct Bilirubin AST ALT Alkaline Phosphatase Ammonia B-Natriuretic Peptide Total Protein Albumin Influenza Type A (PCR) Influenza Type B (PCR) RSV RNA Qual (PCR) SARS-CoV-2 RNA (RT-PCR) 12/09/24 12/09/24 12/09/24 07:45 10:49 10:56 WBC 16.5 H RBC 5.06 Hgb 14.6 Hct 42.8 MCV 84.6 MCH 28.9 MCHC 34.1 RDW 14.1 Plt Count 225 MPV 10.3 Absolute Nucleated RBC 0.000 Nucleated RBC % (auto) 0.0 VBG pH 7.58 H VBG pCO2 23 VBG pO2 229 VBG HCO3 22 VBG O2 Saturation 100.0 VBG Base Excess 2.2 Sodium 139 Potassium 3.5 Chloride 108 Carbon Dioxide 22 Anion Gap 13 BUN 15 Creatinine 0.91 Estim Creat Clear Calc 96.1 Estimated GFR > 60 POC Glucose Random Glucose 109 Lactic Acid Calcium 9.0 Total Bilirubin 1.2 H Direct Bilirubin 0.4 AST 53 H ALT 17 Alkaline Phosphatase 120 H Ammonia 49 B-Natriuretic Peptide 141 H Total Protein 7.6 Albumin 3.8 Influenza Type A (PCR) NEGATIVE Influenza Type B (PCR) NEGATIVE RSV RNA Qual (PCR) NEGATIVE SARS-CoV-2 RNA (RT-PCR) NEGATIVE 12/09/24 12/09/24 12/09/24 12:00 17:36 20:41 WBC RBC Hgb Hct MCV MCH MCHC RDW Plt Count MPV Absolute Nucleated RBC Nucleated RBC % (auto) VBG pH VBG pCO2 VBG pO2 VBG HCO3 VBG O2 Saturation VBG Base Excess Sodium Potassium Chloride Carbon Dioxide Anion Gap BUN Creatinine Estim Creat Clear Calc Estimated GFR POC Glucose 96 104 133 H Random Glucose Lactic Acid Calcium Total Bilirubin Direct Bilirubin AST ALT Alkaline Phosphatase Ammonia B-Natriuretic Peptide Total Protein Albumin Influenza Type A (PCR) Influenza Type B (PCR) RSV RNA Qual (PCR) SARS-CoV-2 RNA (RT-PCR) 12/10/24 12/10/24 04:24 07:45 WBC 13.7 H RBC 5.48 Hgb 15.8 Hct 46.6 MCV 85.0 MCH 28.8 MCHC 33.9 RDW 14.1 Plt Count 199 MPV 10.7 Absolute Nucleated RBC 0.000 Nucleated RBC % (auto) 0.0 VBG pH VBG pCO2 VBG pO2 VBG HCO3 VBG O2 Saturation VBG Base Excess Sodium 138 Potassium 3.9 Chloride 107 Carbon Dioxide 21 L Anion Gap 14 BUN 17 H Creatinine 0.89 Estim Creat Clear Calc 98.2 Estimated GFR > 60 POC Glucose 126 H Random Glucose 94 Lactic Acid Calcium 9.1 Total Bilirubin Direct Bilirubin AST ALT Alkaline Phosphatase Ammonia B-Natriuretic Peptide Total Protein Albumin Influenza Type A (PCR) Influenza Type B (PCR) RSV RNA Qual (PCR) SARS-CoV-2 RNA (RT-PCR) Mental Status Exam Mental Status Exam Patient Appearance: Appropriate Level of Consciousness: Awake, Appropriate and Alert Patient Behavior: Appropriate and Talkative Mood Description: Anxious Affect Description: Anxious Speech Pattern: Clear Hallucinations: None Thought Process: Intact Thought Content: positive for Intact Judgement: Good Medications Medications Current Medications Acetaminophen (Acetaminophen 325 Mg Tablet) 650 mg PO Q6H PRN PRN Reason: Pain, Mild 1-3,fever,headache Last Admin: 12/09/24 21:28 Dose: 650 mg Albuterol/Ipratropium (Albuterol/Iprat 2.5/0.5mg 3 Ml Ampul.Neb) 3 ml INHALE RQ4H WHILE AWAKE PRN PRN Reason: sob Last Admin: 12/10/24 10:04 Dose: 3 ml Aspirin (Aspirin Enteric Coated 81 Mg Tablet.) 81 mg PO DAILY [facility] Last Admin: 12/10/24 08:54 Dose: 81 mg Atorvastatin Calcium (Atorvastatin Calcium 80 Mg Tablet) 80 mg PO BEDTIME [facility] Last Admin: 12/09/24 21:28 Dose: 80 mg Calcium Carbonate (Calcium Carbonate 750 Mg Tab.Chew) 750 mg PO Q4H PRN PRN Reason: Heartburn Ceftriaxone Sodium (Ceftriaxone Sodium 1 Gm Vial) 1 gm IVPUSH Q24H [facility] Last Admin: 12/10/24 08:56 Dose: 1 gm Dextrose (Dextrose 50 % 25 Gm/50 Ml Syringe) 25 gm IVPUSH Q15M PRN; Protocol PRN Reason: per Hypoglycemia Standing Ord. Docusate Sodium (Docusate Sodium 100 Mg Capsule) 200 mg PO BEDTIME PRN PRN Reason: Constipation Enoxaparin Sodium (Enoxaparin Sodium 40 Mg/0.4 Ml Syringe) 40 mg SUBCUT Q24H [facility] Last Admin: 12/10/24 08:55 Dose: 40 mg Gabapentin (Gabapentin 300 Mg Capsule) 300 mg PO TID [facility] Last Admin: 12/10/24 08:54 Dose: 300 mg Glucose (Glucose Gel 15 Gm Gel..Gram.) 15 gm PO Q15M PRN; Protocol PRN Reason: per Hypoglycemia Standing Ord. Hydroxyzine HCl (Hydroxyzine Hcl 50 Mg Tablet) 50 mg PO BID PRN PRN Reason: Anxiety Insulin Glargine (Insulin Glargine,Hum.Rec.Anlog 100 Unit/Ml 10 Ml Vial) 30 unit SUBCUT BID [facility] Last Admin: 12/10/24 08:55 Dose: 30 unit Losartan Potassium (Losartan Potassium 50 Mg Tablet) 50 mg PO DAILY JAMIE; Protocol Last Admin: 12/10/24 08:54 Dose: 50 mg Magnesium Hydroxide (Milk Of Magnesia 30 Ml Oral.Susp) 30 ml PO DAILY PRN PRN Reason: Constipation Last Admin: 12/10/24 09:59 Dose: 30 ml Melatonin (Melatonin 3 Mg Tablet) 6 mg PO BEDTIME PRN PRN Reason: Insomnia Metformin HCl (Metformin Hcl Er 500 Mg Tab.Er.24h) 500 mg PO BID [facility] Last Admin: 12/10/24 08:54 Dose: 500 mg Polyethylene Glycol (Polyethylene Glycol 3350 17 Gm Powd.Pack) 17 gm PO DAILY PRN PRN Reason: Constipation Sodium Chloride (0.9 % Sodium Chloride Flush 3 Ml Syringe) 3 ml IVFLUSH QSHIFT [facility] Last Admin: 12/10/24 08:56 Dose: 3 ml Tamsulosin HCl (Tamsulosin Hcl 0.4 Mg Capsule) 0.4 mg PO DAILY [facility] Last Admin: 12/10/24 08:54 Dose: 0.4 mg Allergies Allergies Allergy/AdvReac Type Severity Reaction Status Date / Time Penicillins (PCN) Allergy Intermediate HIVES Verified 12/07/24 17:12 Assessment & Plan Assessment & Plan (1) Opioid use disorder: Status: Acute Code(s): F11.90 - Opioid use, unspecified, uncomplicated Assessment and Plan: acute opiate withdrawal--methadone 40mg X1 will continue to titrate dose as appropriate methadone 10mg PRN QD sales assoc to follow up and complete referral information for [facility] OTP Total time managing care of this patient today __35__ minutes. PMFSH Past Medical History Medical History (Updated 12/10/24 @ 10:26 by Zoe Berry CNP) Substance abuse Type 2 diabetes mellitus with unspecified complications Essential hypertension Unstable angina History of CVA (cerebrovascular accident) Diabetes HTN (hypertension) Morbid obesity Chest pain Family History Family History Other CAD (coronary artery disease) Diabetes HTN (hypertension) Surgical History Surgical History H/O hand surgery Social History Social History Household Members: None Housing: Apartment Do you presently have visiting nurse or other home services: Yes Patient Tobacco Use Status: Tobacco use Unknown Tobacco use type: Cigarette Cigarette Packs Per Day: 1 Cigarettes Per Day: 20.0 e-Cigarette/Vaping Use: Never Used Second Hand Smoke Exposure: Yes Substance Use Type: Heroin Advance Directives Date on File: 11/25/23 service: No Current occupational status: unemployed
[2024-12-10] MEDS: Nicotine 21 MG PATCH.TD24 TRANSDERMA (11:05)
[2024-12-10] MEDS: methADONE HCl 20 MG/2 ML ORAL.CONC 40 MG PO (11:06)
[2024-12-10 11:50] LABS: Glucose, Whole Blood 118 mg/dL (60-115)
--- NOTE | 2024-12-10 14:53 | MHC.RECOVRN ---
Met with pt in follow-up. Pt stating he is tolerating methadone fairly well, other than reporting mild nausea when he first took his dose (no emesis reported). Pt now states his withdrawals are well managed and stated I feel great other than the backpain I have since yesterday . PRN options for pain to be reviewed with pt. Primary RN made aware of reports of pain. Recovery eval completed. No other questions or concerns offered at this time. Will continue to f/u with pt as needed.
--- NOTE | 2024-12-10 15:21 | MHC.CM.PN ---
CM assessment completed w/ wire harness assembler assistance. Patient reports he lives in an apartment alone. Uses a w/c most times, but says he transfers independently. Able to ambulate w/walker sometimes. Had a RADIO FREQUENCY DESIGN ENGINEER, cannot recall how many hours, but says she quit because he didn't answer the door at times. 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 He cannot recall the name of the agency. Has a CM through [employer], but cannot recall what they assist with. Admits to ongoing drug use. Started on methadone this admission by addiction team. Also reports that drug dealers often stay in his apartment - says he doesn't want them there but has not contacted the police. PCP @ [facility] HCP on file and verified. DP: Pending PT rema. Goal is STR. He understands SNF will likely be in [place] and is agreeable. Will need MDS, PASRR, and guest dosing. Referrals sent via [facility]. CM will continue to follow.
[2024-12-10 16:26] LABS: Glucose, Whole Blood 196 mg/dL (60-115)
--- NOTE | 2024-12-10 17:40 | PC.NURSE ---
Pt was reporting 7-10 generalized body pain. This RN offered PRN Tylenol, patient refused. Dr. Meléndez notified. See new med order. Prior to PRN pain environmental remediation specialist, BP found to be 101/55, all other VSS at this time. Pt reporting dizziness. PRN pain med not given at this time. Dr. Meléndez notified. See new orders.
[2024-12-10 22:13] LABS: Glucose, Whole Blood 108 mg/dL (60-115)
[2024-12-11] VITALS: BP 129/68; PULSE 99; RESP 18; TEMP 36.4; O2SAT 99
[2024-12-11 02:48] VITALS: BP 142/76; PULSE 76; RESP 16; TEMP 36.3; O2SAT 97
[2024-12-11 07:20] LABS: Glucose, Whole Blood 113 mg/dL (60-115)
[2024-12-11 07:25] LABS: Hematocrit 40.6 % (42.0-52.0); Hemoglobin 13.4 g/dl (14.0-18.0); Mean Corpuscular HGB Conc 33.0 g/dl (31.0-36.0); Mean Corpuscular Hemoglobin 28.9 pg (27.0-33.0); Mean Corpuscular Volume 87.7 fL (80.0-98.0); NRBC Abs Auto 0.000 X10*3/uL (0.0-0.012); NRBC Pct Auto 0.0 /100WBC (0.0-0.2); Platelet Count 188 X10*3/uL (160-400); Red Blood Count 4.63 X10*6/uL (4.60-5.80); White Blood Count 9.7 X10*3/uL (4.8-10.8)
[2024-12-11 07:31] LABS: Anion Gap 11 (12-20); Blood Urea Nitrogen 24 mg/dL (9-16); Calcium 8.6 mg/dL (8.4-10.2); Carbon Dioxide 23 mmol/L (22-29); Chloride 107 mmol/L (96-108); Creatinine Clr Calc Pharmacy 80.5; Estimated Glomerular Filt Rate > 60; Potassium 3.9 mmol/L (3.3-5.1); Sodium 137 mmol/L (135-145)
[2024-12-11 07:35] VITALS: BP 113/68; PULSE 87; RESP 20; TEMP 37.1; O2SAT 97
[2024-12-11] MEDS: Insulin Glargine,Hum.rec.anlog 100 UNIT/ML 10 ML VIAL 30 UNIT SUBCUT ×2 (09:27→22:04)
[2024-12-11] MEDS: methADONE HCl 20 MG/2 ML ORAL.CONC 50 MG PO (09:28)
[2024-12-11] MEDS: Aspirin Enteric Coated 81 MG TABLET.DR PO (09:28)
[2024-12-11] MEDS: 0.9 % Sodium Chloride Flush 3 ML SYRINGE IVFLUSH ×3 (09:28→22:07)
[2024-12-11] MEDS: Nicotine 21 MG PATCH.TD24 TRANSDERMA (09:30)
--- NOTE | 2024-12-11 09:42 | P.PNIM_ITS ---
Subjective Subjective Date of Service: 12/11/24 Interval History: no complaints Physical Exam 2 Exam: Exam: General: alert, no acute distress Resp: diminished bilateral, no accessory muscles used CVS: S1,S2,RRR GI: soft, non tender, non distended Neuro: motor grossly intact, alert Vital Signs: Vital Signs: Last Vital Signs Temp 98.8 F 12/11/24 07:35 Pulse 87 12/11/24 07:35 Resp 20 12/11/24 07:35 BP 113/68 12/11/24 07:35 Pulse Ox 97 12/11/24 07:35 O2 Del Method Room Air 12/11/24 07:35 O2 Flow Rate 2 12/10/24 08:00 BMI result Body Mass Index 35.8 Objective Data Active Medications Acetaminophen (Acetaminophen 325 Mg Tablet) 650 mg PO Q6H PRN PRN Reason: Pain, Mild 1-3,fever,headache Last Admin: 12/09/24 21:28 Dose: 650 mg Documented By: PIETRO Albuterol/Ipratropium (Albuterol/Iprat 2.5/0.5mg 3 Ml Ampul.Neb) 3 ml INHALE RQ4H WHILE AWAKE PRN PRN Reason: sob Last Admin: 12/10/24 15:34 Dose: 3 ml Documented By: CONCEPCION Aspirin (Aspirin Enteric Coated 81 Mg Tablet.) 81 mg PO DAILY [facility] Last Admin: 12/11/24 09:28 Dose: 81 mg Documented By: CHAVA Atorvastatin Calcium (Atorvastatin Calcium 80 Mg Tablet) 80 mg PO BEDTIME [facility] Last Admin: 12/10/24 21:59 Dose: 80 mg Documented By: JAYDON Calcium Carbonate (Calcium Carbonate 750 Mg Tab.Chew) 750 mg PO Q4H PRN PRN Reason: Heartburn Ceftriaxone Sodium (Ceftriaxone Sodium 1 Gm Vial) 1 gm IVPUSH Q24H [facility] Last Admin: 12/11/24 09:27 Dose: 1 gm Documented By: CHAVA Dextrose (Dextrose 50 % 25 Gm/50 Ml Syringe) 25 gm IVPUSH Q15M PRN; Protocol PRN Reason: per Hypoglycemia Standing Ord. Docusate Sodium (Docusate Sodium 100 Mg Capsule) 200 mg PO BEDTIME PRN PRN Reason: Constipation Enoxaparin Sodium (Enoxaparin Sodium 40 Mg/0.4 Ml Syringe) 40 mg SUBCUT Q24H [facility] Last Admin: 12/11/24 09:27 Dose: 40 mg Documented By: CHAVA Gabapentin (Gabapentin 300 Mg Capsule) 300 mg PO TID [facility] Last Admin: 12/11/24 09:28 Dose: 300 mg Documented By: CHAVA Glucose (Glucose Gel 15 Gm Gel..Gram.) 15 gm PO Q15M PRN; Protocol PRN Reason: per Hypoglycemia Standing Ord. Hydromorphone HCl (Hydromorphone Hcl 1 Mg/Ml Syringe) 1 mg IVPUSH Q4H PRN; Protocol PRN Reason: Pain, Severe (Pain Scale 7-10) Last Admin: 12/11/24 09:27 Dose: 1 mg Documented By: CHAVA Hydroxyzine HCl (Hydroxyzine Hcl 50 Mg Tablet) 50 mg PO BID PRN PRN Reason: Anxiety Insulin Glargine (Insulin Glargine,Hum.Rec.Anlog 100 Unit/Ml 10 Ml Vial) 30 unit SUBCUT BID [facility] Last Admin: 12/11/24 09:27 Dose: 30 unit Documented By: CHAVA Magnesium Hydroxide (Milk Of Magnesia 30 Ml Oral.Susp) 30 ml PO DAILY PRN PRN Reason: Constipation Last Admin: 12/10/24 09:59 Dose: 30 ml Documented By: GISSELLE Melatonin (Melatonin 3 Mg Tablet) 6 mg PO BEDTIME PRN PRN Reason: Insomnia Metformin HCl (Metformin Hcl Er 500 Mg Tab.Er.24h) 500 mg PO BID [facility] Last Admin: 12/11/24 09:28 Dose: 500 mg Documented By: CHAVA Methadone HCl (Methadone Hcl 20 Mg/2 Ml Oral.Conc) 50 mg PO DAILY@0800 [facility] Last Admin: 12/11/24 09:28 Dose: 50 mg Documented By: CHAVA Co-signed By: PRECIOUS Nicotine (Nicotine 21 Mg Patch.Td24) 21 mg TRANSDERMA DAILY [facility] Last Admin: 12/11/24 09:30 Dose: 21 mg Documented By: CHAVA Polyethylene Glycol (Polyethylene Glycol 3350 17 Gm Powd.Pack) 17 gm PO DAILY PRN PRN Reason: Constipation Sodium Chloride (0.9 % Sodium Chloride Flush 3 Ml Syringe) 3 ml IVFLUSH QSHIFT [facility] Last Admin: 12/11/24 09:28 Dose: 3 ml Documented By: CHAVA Tamsulosin HCl (Tamsulosin Hcl 0.4 Mg Capsule) 0.4 mg PO DAILY JAMIE Last Admin: 12/11/24 09:27 Dose: 0.4 mg Documented By: CHAVA Labs 12/11/24 06:31 12/11/24 06:31 Labs: Laboratory Results - last 24 hr 12/10/24 12/10/24 12/10/24 11:40 16:22 21:02 MCV MCH MCHC RDW Plt Count MPV Absolute Nucleated RBC Nucleated RBC % (auto) Anion Gap Estim Creat Clear Calc Estimated GFR POC Glucose 118 H 196 H 108 Random Glucose Calcium 12/11/24 12/11/24 06:31 07:12 MCV 87.7 MCH 28.9 MCHC 33.0 RDW 14.5 Plt Count 188 MPV 11.0 Absolute Nucleated RBC 0.000 Nucleated RBC % (auto) 0.0 Anion Gap 11 L Estim Creat Clear Calc 80.5 Estimated GFR > 60 POC Glucose 113 Random Glucose 89 Calcium 8.6 Microbiology Microbiology Results: Microbiology 12/07/24 20:56 Urine Culture - Preliminary Urine clean catch - Clean Catch Midstream Klebsiella pneumoniae 12/09/24 08:54 Blood Culture - Preliminary Blood - Venous No growth after 24 hours. 12/09/24 08:53 Blood Culture - Preliminary Blood - Venous No growth after 24 hours. Assessment and Plan (1) Cocaine abuse: Status: Acute Plan 59M PMH polysubstance dependence, hfref EF 20-25%, DM, vt/vf cardiac arrest 10/2022, cva with left hemiparesis, wheelchair bound, morbid obesity, presented 12/07/2024 to the ED after falling from his wheelchair. Became septic on 12/09/2024 in the ED. Acute metabolic encephalopathy due to sepsis (not severe) due to urinary tract infection Ceftriaxone, follow up cultures - urine klebsiella, blood negative mental status improving Acute hypoxic respiratory failure Suspect due to sepsis, wean O2 as tolerated Diabetes Basal bolus insulin Polysubstance dependence Addiction eval History of CVA with left hemiparesis Aspirin statin Chronic systolic CHF Monitor for fluid overload DVT prophylaxis with Lovenox Full Code reason for continued hospitalization:defervesence Quality Stroke Does the patient have a stroke diagnosis?: No VTE Prior VTE?: No VTE Risk Level:: Medical - moderate - high VTE Device Contraindication: Treatment Not Indicated VTE Drug Contraindication: N/A - Med Ordered
--- NOTE | 2024-12-11 09:47 | P.PNADD_ITS ---
Subjective Subjective Date of Service: 12/11/24 Reason For Visit: sepsis Interim History: Patient seen in follow up for OUD Methadone 50mg today. He reports feeling much better , with regards to withdrawal sx Appears comfortable overall. Review of Systems Acute medical concerns: Yes Review of Systems Constitutional: Reports as per HPI and Reports no additional constitutional complaints Mental Status Exam Mental Status Exam Patient Appearance: Appropriate Level of Consciousness: Awake and Alert Patient Behavior: Appropriate and Cooperative Affect Description: Calm Speech Pattern: Clear Hallucinations: None Delusions: Not Present Thought Process: Intact Thought Content: positive for [place] Judgement: Good Diagnostics Vital Signs (24Hr): Vital Signs - 24 hr 12/10/24 10:06 12/10/24 11:49 12/10/24 15:35 Temperature 99 F Pulse Rate 47 L 98 Respiratory Rate 18 18 18 Blood Pressure 161/69 H Pulse Oximetry 99 Oxygen Delivery Method Room Air 12/10/24 16:00 12/10/24 17:35 12/10/24 20:00 Temperature 97.4 F 97.6 F 97.3 F Pulse Rate 80 85 79 Respiratory Rate 18 18 16 Blood Pressure 169/91 H 101/55 L 137/63 Pulse Oximetry 96 98 97 Oxygen Delivery Method Room Air Room Air Room Air 12/11/24 00:00 12/11/24 02:48 12/11/24 07:35 Temperature 97.6 F 97.4 F 98.8 F Pulse Rate 99 76 87 Respiratory Rate 18 16 20 Blood Pressure 129/68 142/76 H 113/68 Pulse Oximetry 99 97 97 Oxygen Delivery Method Room Air Room Air Room Air BMI result Body Mass Index 35.8 Labs 12/11/24 06:31 12/11/24 06:31 Labs: Laboratory Results - last 48 hr 12/09/24 12/09/24 12/09/24 10:49 10:56 12:00 WBC 16.5 H RBC 5.06 Hgb 14.6 Hct 42.8 MCV 84.6 MCH 28.9 MCHC 34.1 RDW 14.1 Plt Count 225 MPV 10.3 Absolute Nucleated RBC 0.000 Nucleated RBC % (auto) 0.0 VBG pH 7.58 H VBG pCO2 23 VBG pO2 229 VBG HCO3 22 VBG O2 Saturation 100.0 VBG Base Excess 2.2 Sodium 139 Potassium 3.5 Chloride 108 Carbon Dioxide 22 Anion Gap 13 BUN 15 Creatinine 0.91 Estim Creat Clear Calc 96.1 Estimated GFR > 60 POC Glucose 96 Random Glucose 109 Calcium 9.0 Total Bilirubin 1.2 H Direct Bilirubin 0.4 AST 53 H ALT 17 Alkaline Phosphatase 120 H Ammonia 49 B-Natriuretic Peptide 141 H Total Protein 7.6 Albumin 3.8 12/09/24 12/09/24 12/10/24 17:36 20:41 04:24 WBC 13.7 H RBC 5.48 Hgb 15.8 Hct 46.6 MCV 85.0 MCH 28.8 MCHC 33.9 RDW 14.1 Plt Count 199 MPV 10.7 Absolute Nucleated RBC 0.000 Nucleated RBC % (auto) 0.0 VBG pH VBG pCO2 VBG pO2 VBG HCO3 VBG O2 Saturation VBG Base Excess Sodium 138 Potassium 3.9 Chloride 107 Carbon Dioxide 21 L Anion Gap 14 BUN 17 H Creatinine 0.89 Estim Creat Clear Calc 98.2 Estimated GFR > 60 POC Glucose 104 133 H Random Glucose 94 Calcium 9.1 Total Bilirubin Direct Bilirubin AST ALT Alkaline Phosphatase Ammonia B-Natriuretic Peptide Total Protein Albumin 12/10/24 12/10/24 12/10/24 07:45 11:40 16:22 WBC RBC Hgb Hct MCV MCH MCHC RDW Plt Count MPV Absolute Nucleated RBC Nucleated RBC % (auto) VBG pH VBG pCO2 VBG pO2 VBG HCO3 VBG O2 Saturation VBG Base Excess Sodium Potassium Chloride Carbon Dioxide Anion Gap BUN Creatinine Estim Creat Clear Calc Estimated GFR POC Glucose 126 H 118 H 196 H Random Glucose Calcium Total Bilirubin Direct Bilirubin AST ALT Alkaline Phosphatase Ammonia B-Natriuretic Peptide Total Protein Albumin 12/10/24 12/11/24 12/11/24 21:02 06:31 07:12 WBC 9.7 RBC 4.63 Hgb 13.4 L Hct 40.6 L MCV 87.7 MCH 28.9 MCHC 33.0 RDW 14.5 Plt Count 188 MPV 11.0 Absolute Nucleated RBC 0.000 Nucleated RBC % (auto) 0.0 VBG pH VBG pCO2 VBG pO2 VBG HCO3 VBG O2 Saturation VBG Base Excess Sodium 137 Potassium 3.9 Chloride 107 Carbon Dioxide 23 Anion Gap 11 L BUN 24 H Creatinine 1.06 Estim Creat Clear Calc 80.5 Estimated GFR > 60 POC Glucose 108 113 Random Glucose 89 Calcium 8.6 Total Bilirubin Direct Bilirubin AST ALT Alkaline Phosphatase Ammonia B-Natriuretic Peptide Total Protein Albumin Medications Medications Current Medications Acetaminophen (Acetaminophen 325 Mg Tablet) 650 mg PO Q6H PRN PRN Reason: Pain, Mild 1-3,fever,headache Last Admin: 12/09/24 21:28 Dose: 650 mg Albuterol/Ipratropium (Albuterol/Iprat 2.5/0.5mg 3 Ml Ampul.Neb) 3 ml INHALE RQ4H WHILE AWAKE PRN PRN Reason: sob Last Admin: 12/10/24 15:34 Dose: 3 ml Aspirin (Aspirin Enteric Coated 81 Mg Tablet.Dr) 81 mg PO DAILY [facility] Last Admin: 12/11/24 09:28 Dose: 81 mg Atorvastatin Calcium (Atorvastatin Calcium 80 Mg Tablet) 80 mg PO BEDTIME [facility] Last Admin: 12/10/24 21:59 Dose: 80 mg Calcium Carbonate (Calcium Carbonate 750 Mg Tab.Chew) 750 mg PO Q4H PRN PRN Reason: Heartburn Ceftriaxone Sodium (Ceftriaxone Sodium 1 Gm Vial) 1 gm IVPUSH Q24H [facility] Last Admin: 12/11/24 09:27 Dose: 1 gm Dextrose (Dextrose 50 % 25 Gm/50 Ml Syringe) 25 gm IVPUSH Q15M PRN; Protocol PRN Reason: per Hypoglycemia Standing Ord. Docusate Sodium (Docusate Sodium 100 Mg Capsule) 200 mg PO BEDTIME PRN PRN Reason: Constipation Enoxaparin Sodium (Enoxaparin Sodium 40 Mg/0.4 Ml Syringe) 40 mg SUBCUT Q24H [facility] Last Admin: 12/11/24 09:27 Dose: 40 mg Gabapentin (Gabapentin 300 Mg Capsule) 300 mg PO TID [facility] Last Admin: 12/11/24 09:28 Dose: 300 mg Glucose (Glucose Gel 15 Gm Gel..Gram.) 15 gm PO Q15M PRN; Protocol PRN Reason: per Hypoglycemia Standing Ord. Hydromorphone HCl (Hydromorphone Hcl 1 Mg/Ml Syringe) 1 mg IVPUSH Q4H PRN; Protocol PRN Reason: Pain, Severe (Pain Scale 7-10) Last Admin: 12/11/24 09:27 Dose: 1 mg Hydroxyzine HCl (Hydroxyzine Hcl 50 Mg Tablet) 50 mg PO BID PRN PRN Reason: Anxiety Insulin Glargine (Insulin Glargine,Hum.Rec.Anlog 100 Unit/Ml 10 Ml Vial) 30 unit SUBCUT BID [facility] Last Admin: 12/11/24 09:27 Dose: 30 unit Magnesium Hydroxide (Milk Of Magnesia 30 Ml Oral.Susp) 30 ml PO DAILY PRN PRN Reason: Constipation Last Admin: 12/10/24 09:59 Dose: 30 ml Melatonin (Melatonin 3 Mg Tablet) 6 mg PO BEDTIME PRN PRN Reason: Insomnia Metformin HCl (Metformin Hcl Er 500 Mg Tab.Er.24h) 500 mg PO BID [facility] Last Admin: 12/11/24 09:28 Dose: 500 mg Methadone HCl (Methadone Hcl 20 Mg/2 Ml Oral.Conc) 50 mg PO DAILY@0800 [facility] Last Admin: 12/11/24 09:28 Dose: 50 mg Nicotine (Nicotine 21 Mg Patch.Td24) 21 mg TRANSDERMA DAILY [facility] Last Admin: 12/11/24 09:30 Dose: 21 mg Polyethylene Glycol (Polyethylene Glycol 3350 17 Gm Powd.Pack) 17 gm PO DAILY PRN PRN Reason: Constipation Sodium Chloride (0.9 % Sodium Chloride Flush 3 Ml Syringe) 3 ml IVFLUSH QSHIFT [facility] Last Admin: 12/11/24 09:28 Dose: 3 ml Tamsulosin HCl (Tamsulosin Hcl 0.4 Mg Capsule) 0.4 mg PO DAILY [facility] Last Admin: 12/11/24 09:27 Dose: 0.4 mg Allergies Allergies Allergy/AdvReac Type Severity Reaction Status Date / Time Penicillins (PCN) Allergy Intermediate HIVES Verified 12/07/24 17:12 Assessment & Plan Assessment & Plan (1) Opioid use disorder: Status: Acute Code(s): F11.90 - Opioid use, unspecified, uncomplicated Assessment and Plan: * will continue dose titration throughout stay as appropriate * referral has been sent by distribution center assistant to [facility] for continuation of treatment outpatient Total time managing care of this patient today __20__ minutes.
--- NOTE | 2024-12-11 10:42 | MHC.CM.PN ---
Addendum entered by Ligia Lai 12/11/24 13:00: PT is recommending STR; CM will continue to follow. Original Note: Per ROUNDS discussion, Patient is not yet medically cleared for dc (final cultures are pending); Patient will benefit from a PT Eval to assist with disposition.CM will continue to follow.
[2024-12-11 11:28] LABS: Glucose, Whole Blood 98 mg/dL (60-115)
[2024-12-11 11:49] VITALS: BP 113/71; PULSE 97; RESP 20; TEMP 36.7; O2SAT 97
[2024-12-11 16:00] VITALS: BP 142/90; PULSE 101; PULSE 87; RESP 16; TEMP 36.7; O2SAT 94
[2024-12-11 16:22] LABS: Glucose, Whole Blood 136 mg/dL (60-115)
--- NOTE | 2024-12-11 16:53 | MHC.RECOVRN ---
TW met with pt to sign UTE to send to [facility] clinic so pt may be dosed in the community upon discharge. Paperwork was sent to [facility] via email. TW will continue to follow pt for further questions, concerns, or support.
[2024-12-11 19:38] VITALS: BP 132/75; PULSE 65; RESP 17; TEMP 36.6; O2SAT 98
[2024-12-11 21:01] LABS: Glucose, Whole Blood 162 mg/dL (60-115)
[2024-12-12] VITALS (7 sets, daily range): BP systolic 121–164; BP diastolic 66–81; PULSE 74–97; RESP 16–20; TEMP 36.2–37.7; O2SAT 96–99
[2024-12-12 07:24] LABS: Glucose, Whole Blood 67 mg/dL (60-115)
[2024-12-12 07:28] LABS: Hematocrit 37.2 % (42.0-52.0); Hemoglobin 12.4 g/dl (14.0-18.0); Mean Corpuscular HGB Conc 33.3 g/dl (31.0-36.0); Mean Corpuscular Hemoglobin 29.1 pg (27.0-33.0); Mean Corpuscular Volume 87.3 fL (80.0-98.0); NRBC Abs Auto 0.000 X10*3/uL (0.0-0.012); NRBC Pct Auto 0.0 /100WBC (0.0-0.2); Platelet Count 189 X10*3/uL (160-400); Red Blood Count 4.26 X10*6/uL (4.60-5.80); White Blood Count 8.4 X10*3/uL (4.8-10.8)
[2024-12-12] MEDS: methADONE HCl 20 MG/2 ML ORAL.CONC 50 MG PO (07:47)
[2024-12-12] MEDS: 0.9 % Sodium Chloride Flush 3 ML SYRINGE IVFLUSH ×3 (07:47→21:38)
[2024-12-12 07:50] LABS: Anion Gap 8 (12-20); Blood Urea Nitrogen 22 mg/dL (9-16); Calcium 8.7 mg/dL (8.4-10.2); Carbon Dioxide 26 mmol/L (22-29); Chloride 108 mmol/L (96-108); Creatinine Clr Calc Pharmacy 102.8; Estimated Glomerular Filt Rate > 60; Potassium 4.2 mmol/L (3.3-5.1); Sodium 138 mmol/L (135-145)
[2024-12-12 07:52] LABS: Glucose, Whole Blood 88 mg/dL (60-115)
[2024-12-12] MEDS: Nicotine 21 MG PATCH.TD24 TRANSDERMA (07:54)
[2024-12-12] MEDS: Aspirin Enteric Coated 81 MG TABLET.DR PO (08:01)
[2024-12-12 09:13] LABS: Glucose, Whole Blood 154 mg/dL (60-115)
[2024-12-12] MEDS: Insulin Glargine,Hum.rec.anlog 100 UNIT/ML 10 ML VIAL 30 UNIT SUBCUT ×2 (09:49→21:37)
--- NOTE | 2024-12-12 10:42 | HO.PM.IMPN ---
Subjective Subjective Date of Service: 12/12/24 Interval History: no complaints Physical Exam Exam: Exam: General: alert, no acute distress Resp: diminished bilateral, no accessory muscles used CVS: S1,S2,RRR GI: soft, non tender, non distended Neuro: motor grossly intact, alert Vital Signs: Vital Signs: Last Vital Signs Temp 97.2 F 12/12/24 08:00 Pulse 97 12/12/24 08:00 Resp 20 12/12/24 08:00 BP 149/81 H 12/12/24 08:00 Pulse Ox 98 12/12/24 08:00 O2 Del Method Room Air 12/12/24 08:00 O2 Flow Rate 2 12/10/24 08:00 BMI result Body Mass Index 35.8 Objective Data Active Medications Acetaminophen (Acetaminophen 325 Mg Tablet) 650 mg PO Q6H PRN PRN Reason: Pain, Mild 1-3,fever,headache Last Admin: 12/09/24 21:28 Dose: 650 mg Documented By: PIETRO Albuterol/Ipratropium (Albuterol/Iprat 2.5/0.5mg 3 Ml Ampul.Neb) 3 ml INHALE RQ4H WHILE AWAKE PRN PRN Reason: sob Last Admin: 12/10/24 15:34 Dose: 3 ml Documented By: CONCEPCION Aspirin (Aspirin Enteric Coated 81 Mg Tablet.) 81 mg PO DAILY [facility] Last Admin: 12/12/24 08:01 Dose: 81 mg Documented By: ELMA Atorvastatin Calcium (Atorvastatin Calcium 80 Mg Tablet) 80 mg PO BEDTIME [facility] Last Admin: 12/11/24 22:04 Dose: 80 mg Documented By: TOM Calcium Carbonate (Calcium Carbonate 750 Mg Tab.Chew) 750 mg PO Q4H PRN PRN Reason: Heartburn Ceftriaxone Sodium (Ceftriaxone Sodium 1 Gm Vial) 1 gm IVPUSH Q24H [facility] Last Admin: 12/12/24 07:46 Dose: 1 gm Documented By: ELMA Dextrose (Dextrose 50 % 25 Gm/50 Ml Syringe) 25 gm IVPUSH Q15M PRN; Protocol PRN Reason: per Hypoglycemia Standing Ord. Docusate Sodium (Docusate Sodium 100 Mg Capsule) 200 mg PO BEDTIME PRN PRN Reason: Constipation Enoxaparin Sodium (Enoxaparin Sodium 40 Mg/0.4 Ml Syringe) 40 mg SUBCUT Q24H [facility] Last Admin: 12/12/24 07:48 Dose: 40 mg Documented By: ELMA Gabapentin (Gabapentin 300 Mg Capsule) 300 mg PO TID [facility] Last Admin: 12/12/24 07:46 Dose: 300 mg Documented By: ELMA Glucose (Glucose Gel 15 Gm Gel..Gram.) 15 gm PO Q15M PRN; Protocol PRN Reason: per Hypoglycemia Standing Ord. Hydromorphone HCl (Hydromorphone Hcl 1 Mg/Ml Syringe) 1 mg IVPUSH Q4H PRN; Protocol PRN Reason: Pain, Severe (Pain Scale 7-10) Last Admin: 12/12/24 07:58 Dose: 1 mg Documented By: ELMA Hydroxyzine HCl (Hydroxyzine Hcl 50 Mg Tablet) 50 mg PO BID PRN PRN Reason: Anxiety Insulin Glargine (Insulin Glargine,Hum.Rec.Anlog 100 Unit/Ml 10 Ml Vial) 30 unit SUBCUT BID [facility] Last Admin: 12/12/24 09:49 Dose: 30 unit Documented By: ELMA Magnesium Hydroxide (Milk Of Magnesia 30 Ml Oral.Susp) 30 ml PO DAILY PRN PRN Reason: Constipation Last Admin: 12/10/24 09:59 Dose: 30 ml Documented By: GISSELLE Melatonin (Melatonin 3 Mg Tablet) 6 mg PO BEDTIME PRN PRN Reason: Insomnia Metformin HCl (Metformin Hcl Er 500 Mg Tab.Er.24h) 500 mg PO BID [facility] Last Admin: 12/12/24 07:46 Dose: 500 mg Documented By: ELMA Methadone HCl (Methadone Hcl 20 Mg/2 Ml Oral.Conc) 50 mg PO DAILY@0800 [facility] Last Admin: 12/12/24 07:47 Dose: 50 mg Documented By: ELMA Co-signed By: SELENA Nicotine (Nicotine 21 Mg Patch.Td24) 21 mg TRANSDERMA DAILY [facility] Last Admin: 12/12/24 07:54 Dose: 21 mg Documented By: ELMA Polyethylene Glycol (Polyethylene Glycol 3350 17 Gm Powd.Pack) 17 gm PO DAILY PRN PRN Reason: Constipation Sodium Chloride (0.9 % Sodium Chloride Flush 3 Ml Syringe) 3 ml IVFLUSH QSHIFT [facility] Last Admin: 12/12/24 07:47 Dose: 3 ml Documented By: ELMA Tamsulosin HCl (Tamsulosin Hcl 0.4 Mg Capsule) 0.4 mg PO DAILY [facility] Last Admin: 12/12/24 07:46 Dose: 0.4 mg Documented By: ELMA Labs 12/12/24 07:02 12/12/24 07:02 Labs: Laboratory Results - last 24 hr 12/11/24 12/11/24 12/11/24 11:20 16:17 20:54 MCV MCH MCHC RDW Plt Count MPV Absolute Nucleated RBC Nucleated RBC % (auto) Anion Gap Estim Creat Clear Calc Estimated GFR POC Glucose 98 136 H 162 H Random Glucose Calcium 12/12/24 12/12/24 12/12/24 07:02 07:05 07:49 MCV 87.3 MCH 29.1 MCHC 33.3 RDW 14.4 Plt Count 189 MPV 10.6 Absolute Nucleated RBC 0.000 Nucleated RBC % (auto) 0.0 Anion Gap 8 L Estim Creat Clear Calc 102.8 Estimated GFR > 60 POC Glucose 67 88 Random Glucose 74 Calcium 8.7 12/12/24 09:10 MCV MCH MCHC RDW Plt Count MPV Absolute Nucleated RBC Nucleated RBC % (auto) Anion Gap Estim Creat Clear Calc Estimated GFR POC Glucose 154 H Random Glucose Calcium Microbiology Microbiology Results: Microbiology 12/07/24 20:56 Urine Culture - Preliminary Urine clean catch - Clean Catch Midstream Klebsiella pneumoniae 12/09/24 08:54 Blood Culture - Preliminary Blood - Venous No growth after 48 hours. 12/09/24 08:53 Blood Culture - Preliminary Blood - Venous No growth after 48 hours. Assessment and Plan (1) Cocaine abuse: Status: Acute Plan 59M PMH polysubstance dependence, hfref EF 20-25%, DM, vt/vf cardiac arrest 10/2022, cva with left hemiparesis, wheelchair bound, morbid obesity, presented 12/07/2024 to the ED after falling from his wheelchair. Became septic on 12/09/2024 in the ED. Acute metabolic encephalopathy due to sepsis (not severe) due to urinary tract infection Ceftriaxone, follow up cultures - urine klebsiella, blood negative mental status back to baseline Acute hypoxic respiratory failure Suspect due to sepsis, wean O2 as tolerated Diabetes Basal bolus insulin Polysubstance dependence Addiction eval History of CVA with left hemiparesis Aspirin statin Chronic systolic CHF Monitor for fluid overload DVT prophylaxis with Lovenox Full Code reason for continued hospitalization:medically cleared, care team eval Quality Stroke Does the patient have a stroke diagnosis?: No VTE Prior VTE?: No VTE Risk Level:: Medical - moderate - high VTE Device Contraindication: Treatment Not Indicated VTE Drug Contraindication: N/A - Med Ordered
--- NOTE | 2024-12-12 10:44 | PM.DS ---
DS: Providers Provider Date of Service: 12/12/24 Date of admission: 12/09/24 08:52 Date of discharge: 12/12/24 Primary care physician: Silvia Flores MD Consults: 12/07/24 18:47 ED CARE Team Crisis Consult Stat Comment: Reason for consultation: depression, polysubstance 12/08/24 14:57 Consult to Case Management Routine Comment: 12/09/24 10:11 Addiction Medicine Provider Routine Consulting Provider: Addiction Covering Reason for consultation: opiates, cocaine 12/12/24 10:39 Inpt CARE Team Crisis Consult Routine Comment: Reason for consultation: medically stable, came from ED as psych bedsearch for depression/?SI DS: Diagnosis Discharge Diagnosis (1) Cocaine abuse: Status: Acute DS: Summary Hospital Course Hospital Course: from initial hpi: 59M PMH polysubstance dependence, hfref EF 20-25%, DM, vt/vf cardiac arrest 10/2022, cva with left hemiparesis, wheelchair bound, morbid obesity, presented 12/07/2024 to the ED after falling from his wheelchair. Patient was being evaluated for worsening depression and anxiety and increased use of heroin and cocaine was trying to get admitted to [facility] when he fell out of his wheelchair onto his left shoulder. Was sent to [facility] ruled out for trauma and continued to wait for psychiatric bed and early a.m. 12/09/24 noted to be febrile with worsening mental status consistent with sepsis. Patient unable to provide history. UA noted to be positive. Also noted to be hypoxic. hospital course: Patient was admitted for acute metabolic encephalopathy due to sepsis due to urinary tract infection. Was treated ceftriaxone and sepsis and mental status resolved. Urine culture grew Klebsiella, blood culture was negative. On discharge will continue 5 more days of Ceftin. For acute hypoxic respiratory failure this was due to sepsis and resolved. For diabetes was continued on basal bolus insulin. For polysubstance dependence was seen by Addiction who provided patient with methadone. For history of CVA with left hemiparesis was continued on aspirin statin. For chronic systolic CHF patient remained euvolemic. For depression and anxiety patient was seen by care team and cleared, will be discharged to snf, expected to require less than 30 days. Time Attestation Discharge Coordination Time (in mins): 37 Quality: Safe Use of Opioids Does Pt have an Active Cancer Diagnosis on the Problem List?: No Quality: Stroke Does the patient have a stroke diagnosis?: No Physical Exam Exam: Exam: General: alert, no acute distress Resp: diminished bilateral, no accessory muscles used CVS: S1,S2,RRR GI: soft, non tender, non distended Neuro: motor grossly intact, alert Vital Signs: Vital Signs: Last Vital Signs Temp 97.2 F 12/12/24 08:00 Pulse 97 12/12/24 08:00 Resp 20 12/12/24 08:00 BP 149/81 H 12/12/24 08:00 Pulse Ox 98 12/12/24 08:00 O2 Del Method Room Air 12/12/24 08:00 O2 Flow Rate 2 12/10/24 08:00 BMI result Body Mass Index 35.8 DS: Data Data Completed and Pending Completed studies during hospitalization [Text1]: Procedures Drainage of Left Hand Bursa and Ligament, Open Approach (11/12/23) Labs on day of discharge: Laboratory Results - last 24 hr 12/11/24 12/11/24 12/11/24 11:20 16:17 20:54 WBC RBC Hgb Hct MCV MCH MCHC RDW Plt Count MPV Absolute Nucleated RBC Nucleated RBC % (auto) Sodium Potassium Chloride Carbon Dioxide Anion Gap BUN Creatinine Estim Creat Clear Calc Estimated GFR POC Glucose 98 136 H 162 H Random Glucose Calcium 12/12/24 12/12/24 12/12/24 07:02 07:05 07:49 WBC 8.4 RBC 4.26 L Hgb 12.4 L Hct 37.2 L MCV 87.3 MCH 29.1 MCHC 33.3 RDW 14.4 Plt Count 189 MPV 10.6 Absolute Nucleated RBC 0.000 Nucleated RBC % (auto) 0.0 Sodium 138 Potassium 4.2 Chloride 108 Carbon Dioxide 26 Anion Gap 8 L BUN 22 H Creatinine 0.83 Estim Creat Clear Calc 102.8 Estimated GFR > 60 POC Glucose 67 88 Random Glucose 74 Calcium 8.7 12/12/24 09:10 WBC RBC Hgb Hct MCV MCH MCHC RDW Plt Count MPV Absolute Nucleated RBC Nucleated RBC % (auto) Sodium Potassium Chloride Carbon Dioxide Anion Gap BUN Creatinine Estim Creat Clear Calc Estimated GFR POC Glucose 154 H Random Glucose Calcium Preliminary micro results at discharge 12/07/24 20:56 Urine Culture - Preliminary Urine clean catch - Clean Catch Midstream Klebsiella pneumoniae 12/09/24 08:54 Blood Culture - Preliminary Blood - Venous No growth after 48 hours. 12/09/24 08:53 Blood Culture - Preliminary Blood - Venous No growth after 48 hours. Discharge Plan Discharge Anticipated Discharge Date/Time: 12/12/24 10:43 Patient Disposition: Xfer SNF Discharge Diagnosis: sepsis, uti Referrals: [facility] [Provider Group] Referral Note: left shoulder pain Silvia Flores MD [Primary Care Provider, Internal Medicine] - 1 Week Discharge Medications: New cefuroxime axetil 500 mg tablet 500 mg PO BID Qty: 10 0RF Continued insulin aspart U-100 100 unit/mL (3 mL) insulin pen 5 sliding scale dose SUBCUT TID Rx Instructions: 5 units TID with meals plus sliding scale as follows: BS 150-200 add 2 units BS 201-250 add 4 units BS 251-300 add 6 units BS 301-350 add 8 units BS > 350 add 10 units and call aspirin 81 mg tablet,delayed release (DR/EC) 81 mg PO DAILY insulin glargine [Lantus Solostar U-100 Insulin] 100 unit/mL (3 mL) insulin pen 30 unit subcut BID atorvastatin 80 mg tablet 80 mg PO BEDTIME hydroxyzine HCl 50 mg tablet 50 mg PO BID PRN (Reason: Anxiety) tamsulosin 0.4 mg capsule 0.4 mg PO DAILY gabapentin 300 mg capsule 300 mg PO TID metformin 500 mg tablet extended release 24 hr 500 mg PO BID losartan 50 mg tablet 50 mg PO DAILY Protocol: Hold for SBP< HOLD for SBP < : 90 docusate sodium [Colace] 100 mg capsule 200 mg PO BEDTIME PRN (Reason: Constipation) polyethylene glycol 3350 [Miralax] 17 gram/dose powder 17 g PO DAILY PRN (Reason: Constipation) Diet: Advance to usual diet Activity on Discharge: As tolerated Stand Alone Forms: Patient Portal Discharge page Print Language: Lithuanian Care Plan Goals: recovery Health Concerns: uti Plan of Treatment: 5 days ceftin Assessment: see above Patient Instructions: Shoulder Pain (ED)
[2024-12-12 11:27] LABS: Glucose, Whole Blood 98 mg/dL (60-115)
--- NOTE | 2024-12-12 11:47 | HO.ADDICTPRO ---
Subjective Subjective Date of Service: 12/12/24 Reason For Visit: sepsis Interim History: Patient seen in follow up for OUD Methadone dose 50mg QD Patient awake, alert, pleasant, sitting up in recliner. Bright affect, says he feels like a new man . T/w inquired about increasing methadone dose, and patient declined, stating he feels fine where he is and doesn't want to go too high . T/w provided some education around dosing, and encouraged patient o let community providers know if he starts to have withdrawal sx, or increase in cravings/thoughts of using opiates. Patient agreeable. Review of Systems Constitutional: Reports as per HPI and Reports no additional constitutional complaints Mental Status Exam Mental Status Exam Patient Appearance: Well Grooomed and Appropriate Level of Consciousness: Awake, Appropriate and Alert Patient Behavior: Appropriate and Talkative Mood Description: Calm Affect Description: Calm Speech Pattern: Clear Thought Process: Intact Thought Content: positive for Intact Diagnostics Vital Signs (24Hr): Vital Signs - 24 hr 12/11/24 11:49 12/11/24 16:00 12/11/24 19:38 Temperature 98.1 F 98.1 F 97.8 F Pulse Rate 97 87 65 Respiratory Rate 20 16 17 Blood Pressure 113/71 142/90 H 132/75 Pulse Oximetry 97 94 98 Oxygen Delivery Method Room Air Room Air Room Air 12/12/24 00:00 12/12/24 03:35 12/12/24 08:00 Temperature 98.6 F 97.1 F 97.2 F Pulse Rate 84 74 97 Respiratory Rate 16 17 20 Blood Pressure 134/66 146/70 H 149/81 H Pulse Oximetry 96 99 98 Oxygen Delivery Method Room Air Room Air Room Air BMI result Body Mass Index 35.8 Labs 12/12/24 07:02 12/12/24 07:02 Labs: Laboratory Results - last 48 hr 12/10/24 12/10/24 12/10/24 11:40 16:22 21:02 WBC RBC Hgb Hct MCV MCH MCHC RDW Plt Count MPV Absolute Nucleated RBC Nucleated RBC % (auto) Sodium Potassium Chloride Carbon Dioxide Anion Gap BUN Creatinine Estim Creat Clear Calc Estimated GFR POC Glucose 118 H 196 H 108 Random Glucose Calcium 12/11/24 12/11/24 12/11/24 06:31 07:12 11:20 WBC 9.7 RBC 4.63 Hgb 13.4 L Hct 40.6 L MCV 87.7 MCH 28.9 MCHC 33.0 RDW 14.5 Plt Count 188 MPV 11.0 Absolute Nucleated RBC 0.000 Nucleated RBC % (auto) 0.0 Sodium 137 Potassium 3.9 Chloride 107 Carbon Dioxide 23 Anion Gap 11 L BUN 24 H Creatinine 1.06 Estim Creat Clear Calc 80.5 Estimated GFR > 60 POC Glucose 113 98 Random Glucose 89 Calcium 8.6 12/11/24 12/11/24 12/12/24 16:17 20:54 07:02 WBC 8.4 RBC 4.26 L Hgb 12.4 L Hct 37.2 L MCV 87.3 MCH 29.1 MCHC 33.3 RDW 14.4 Plt Count 189 MPV 10.6 Absolute Nucleated RBC 0.000 Nucleated RBC % (auto) 0.0 Sodium 138 Potassium 4.2 Chloride 108 Carbon Dioxide 26 Anion Gap 8 L BUN 22 H Creatinine 0.83 Estim Creat Clear Calc 102.8 Estimated GFR > 60 POC Glucose 136 H 162 H Random Glucose 74 Calcium 8.7 12/12/24 12/12/24 12/12/24 07:05 07:49 09:10 WBC RBC Hgb Hct MCV MCH MCHC RDW Plt Count MPV Absolute Nucleated RBC Nucleated RBC % (auto) Sodium Potassium Chloride Carbon Dioxide Anion Gap BUN Creatinine Estim Creat Clear Calc Estimated GFR POC Glucose 67 88 154 H Random Glucose Calcium 12/12/24 11:09 WBC RBC Hgb Hct MCV MCH MCHC RDW Plt Count MPV Absolute Nucleated RBC Nucleated RBC % (auto) Sodium Potassium Chloride Carbon Dioxide Anion Gap BUN Creatinine Estim Creat Clear Calc Estimated GFR POC Glucose 98 Random Glucose Calcium Medications Medications Current Medications Acetaminophen (Acetaminophen 325 Mg Tablet) 650 mg PO Q6H PRN PRN Reason: Pain, Mild 1-3,fever,headache Last Admin: 12/09/24 21:28 Dose: 650 mg Albuterol/Ipratropium (Albuterol/Iprat 2.5/0.5mg 3 Ml Ampul.Neb) 3 ml INHALE RQ4H WHILE AWAKE PRN PRN Reason: sob Last Admin: 12/10/24 15:34 Dose: 3 ml Aspirin (Aspirin Enteric Coated 81 Mg Tablet.) 81 mg PO DAILY JAMIE Last Admin: 12/12/24 08:01 Dose: 81 mg Atorvastatin Calcium (Atorvastatin Calcium 80 Mg Tablet) 80 mg PO BEDTIME [facility] Last Admin: 12/11/24 22:04 Dose: 80 mg Calcium Carbonate (Calcium Carbonate 750 Mg Tab.Chew) 750 mg PO Q4H PRN PRN Reason: Heartburn Ceftriaxone Sodium (Ceftriaxone Sodium 1 Gm Vial) 1 gm IVPUSH Q24H [facility] Last Admin: 12/12/24 07:46 Dose: 1 gm Dextrose (Dextrose 50 % 25 Gm/50 Ml Syringe) 25 gm IVPUSH Q15M PRN; Protocol PRN Reason: per Hypoglycemia Standing Ord. Docusate Sodium (Docusate Sodium 100 Mg Capsule) 200 mg PO BEDTIME PRN PRN Reason: Constipation Enoxaparin Sodium (Enoxaparin Sodium 40 Mg/0.4 Ml Syringe) 40 mg SUBCUT Q24H [facility] Last Admin: 12/12/24 07:48 Dose: 40 mg Gabapentin (Gabapentin 300 Mg Capsule) 300 mg PO TID [facility] Last Admin: 12/12/24 07:46 Dose: 300 mg Glucose (Glucose Gel 15 Gm Gel..Gram.) 15 gm PO Q15M PRN; Protocol PRN Reason: per Hypoglycemia Standing Ord. Hydromorphone HCl (Hydromorphone Hcl 1 Mg/Ml Syringe) 1 mg IVPUSH Q4H PRN; Protocol PRN Reason: Pain, Severe (Pain Scale 7-10) Last Admin: 12/12/24 07:58 Dose: 1 mg Hydroxyzine HCl (Hydroxyzine Hcl 50 Mg Tablet) 50 mg PO BID PRN PRN Reason: Anxiety Insulin Glargine (Insulin Glargine,Hum.Rec.Anlog 100 Unit/Ml 10 Ml Vial) 30 unit SUBCUT BID [facility] Last Admin: 12/12/24 09:49 Dose: 30 unit Magnesium Hydroxide (Milk Of Magnesia 30 Ml Oral.Susp) 30 ml PO DAILY PRN PRN Reason: Constipation Last Admin: 12/10/24 09:59 Dose: 30 ml Melatonin (Melatonin 3 Mg Tablet) 6 mg PO BEDTIME PRN PRN Reason: Insomnia Metformin HCl (Metformin Hcl Er 500 Mg Tab.Er.24h) 500 mg PO BID [facility] Last Admin: 12/12/24 07:46 Dose: 500 mg Methadone HCl (Methadone Hcl 20 Mg/2 Ml Oral.Conc) 50 mg PO DAILY@0800 [facility] Last Admin: 12/12/24 07:47 Dose: 50 mg Nicotine (Nicotine 21 Mg Patch.Td24) 21 mg TRANSDERMA DAILY [facility] Last Admin: 12/12/24 07:54 Dose: 21 mg Polyethylene Glycol (Polyethylene Glycol 3350 17 Gm Powd.Pack) 17 gm PO DAILY PRN PRN Reason: Constipation Sodium Chloride (0.9 % Sodium Chloride Flush 3 Ml Syringe) 3 ml IVFLUSH QSHIFT [facility] Last Admin: 12/12/24 07:47 Dose: 3 ml Tamsulosin HCl (Tamsulosin Hcl 0.4 Mg Capsule) 0.4 mg PO DAILY [facility] Last Admin: 12/12/24 07:46 Dose: 0.4 mg Allergies Allergies Allergy/AdvReac Type Severity Reaction Status Date / Time Penicillins (PCN) Allergy Intermediate HIVES Verified 12/07/24 17:12 Assessment & Plan Assessment & Plan (1) Opioid use disorder: Status: Acute Code(s): F11.90 - Opioid use, unspecified, uncomplicated Assessment and Plan: continue methadone at 50mg QD configuration specialist to coordinate dosing at [facility] while at [facility] Total time managing care of this patient today __30__ minutes.
--- NOTE | 2024-12-12 12:40 | MHC.CM.PN ---
Addendum entered by Ligia Lai 12/12/24 13:48: Care Team Consult cancelled r/t Care Team clearance on 12/08/2024. Original Note: Per ROUNDS discussion, Patient needs to be seen by Psych prior to dc. CM will continue to follow.
--- NOTE | 2024-12-12 13:36 | MHC.CARE ---
T/w spoke with Dr. Doroteo Meléndez, and CARE consult was cancelled due to pt. being cleared by CARE team on 12/08/24. Pt. will be referred back to Case Management for a potential SNF placement.
--- NOTE | 2024-12-12 15:17 | MHC.CM.PN ---
Addendum entered by Ligia Lai 12/12/24 15:48: [facility] that would [facility] for Patient, is now on hold; CM awaits response for date of next available bed. CM will continue to follow. Original Note: CM met with Patient at bedside, with a Hogshead Inspector and Patient is agreeable to PT's recommendation for STR; Patient is agreeable to [facility]. MDS has been completed (just needs RN signature) and [facility] Recovery Nurse is working on Methadone Guest Dosing. CM will follow.
[2024-12-12 16:31] LABS: Glucose, Whole Blood 108 mg/dL (60-115)
[2024-12-12 21:17] LABS: Glucose, Whole Blood 114 mg/dL (60-115)
[2024-12-13 03:22] VITALS: BP 147/79; PULSE 81; RESP 16; TEMP 37.2; O2SAT 98
[2024-12-13 07:20] VITALS: BP 152/78; PULSE 90; RESP 17; O2SAT 98
[2024-12-13 07:41] LABS: Glucose, Whole Blood 97 mg/dL (60-115)
[2024-12-13 08:00] VITALS: PULSE 89
--- NOTE | 2024-12-13 09:22 | MHC.CM.PN ---
EMR REVIEWED, PLAN FOR STR AT [facility] HOWEVER THEY ARE UNABLE TO TAKE PT TODAY TO A PT NOT DISCHARGING, [facility] FOLLOWING AND CM HAS SENT MESSAGE TO [facility] TO DETERMINE IF THEY CAN TAKE PT, CM AWAITING RESPONSE.
[2024-12-13] MEDS: methADONE HCl 20 MG/2 ML ORAL.CONC 50 MG PO (09:27)
[2024-12-13] MEDS: Nicotine 21 MG PATCH.TD24 TRANSDERMA (09:28)
[2024-12-13] MEDS: Aspirin Enteric Coated 81 MG TABLET.DR PO (09:29)
[2024-12-13] MEDS: 0.9 % Sodium Chloride Flush 3 ML SYRINGE IVFLUSH ×3 (09:29→20:44)
[2024-12-13] MEDS: Insulin Glargine,Hum.rec.anlog 100 UNIT/ML 10 ML VIAL 30 UNIT SUBCUT (09:30)
[2024-12-13 11:05] VITALS: BP 135/68; PULSE 88; RESP 18; TEMP 36.2; O2SAT 99
[2024-12-13 11:38] LABS: Glucose, Whole Blood 106 mg/dL (60-115)
[2024-12-13 15:11] VITALS: BP 138/82; PULSE 85; RESP 18; TEMP 36.2; O2SAT 96
--- NOTE | 2024-12-13 15:14 | P.PNIM_ITS ---
Subjective Subjective Date of Service: 12/13/24 Interval History: uti Review of Systems no fevers no new c/o Physical Exam 2 Exam: Exam: General: alert, no acute distress Resp: diminished bilateral, no accessory muscles used CVS: S1,S2,RRR GI: soft, non tender, non distended Neuro: motor grossly intact, alert Vital Signs: Vital Signs: Last Vital Signs Temp 97.2 F 12/13/24 15:11 Pulse 85 12/13/24 15:11 Resp 18 12/13/24 15:11 BP 138/82 12/13/24 15:11 Pulse Ox 96 12/13/24 15:11 O2 Del Method Room Air 12/13/24 15:11 O2 Flow Rate 2 12/10/24 08:00 BMI result Body Mass Index 35.8 Objective Data Active Medications Acetaminophen (Acetaminophen 325 Mg Tablet) 650 mg PO Q6H PRN PRN Reason: Pain, Mild 1-3,fever,headache Last Admin: 12/09/24 21:28 Dose: 650 mg Documented By: PIETRO Albuterol/Ipratropium (Albuterol/Iprat 2.5/0.5mg 3 Ml Ampul.Neb) 3 ml INHALE RQ4H WHILE AWAKE PRN PRN Reason: sob Last Admin: 12/10/24 15:34 Dose: 3 ml Documented By: CONCEPCION Aspirin (Aspirin Enteric Coated 81 Mg Tablet.) 81 mg PO DAILY [facility] Last Admin: 12/13/24 09:29 Dose: 81 mg Documented By: DEBBIE Atorvastatin Calcium (Atorvastatin Calcium 80 Mg Tablet) 80 mg PO BEDTIME [facility] Last Admin: 12/12/24 21:38 Dose: 80 mg Documented By: JUNI Calcium Carbonate (Calcium Carbonate 750 Mg Tab.Chew) 750 mg PO Q4H PRN PRN Reason: Heartburn Ceftriaxone Sodium (Ceftriaxone Sodium 1 Gm Vial) 1 gm IVPUSH Q24H [facility] Last Admin: 12/13/24 09:28 Dose: 1 gm Documented By: DEBBIE Dextrose (Dextrose 50 % 25 Gm/50 Ml Syringe) 25 gm IVPUSH Q15M PRN; Protocol PRN Reason: per Hypoglycemia Standing Ord. Docusate Sodium (Docusate Sodium 100 Mg Capsule) 200 mg PO BEDTIME PRN PRN Reason: Constipation Enoxaparin Sodium (Enoxaparin Sodium 40 Mg/0.4 Ml Syringe) 40 mg SUBCUT Q24H [facility] Last Admin: 12/13/24 09:29 Dose: 40 mg Documented By: DEBBIE Gabapentin (Gabapentin 300 Mg Capsule) 300 mg PO TID [facility] Last Admin: 12/13/24 09:29 Dose: 300 mg Documented By: DEBBIE Glucose (Glucose Gel 15 Gm Gel..Gram.) 15 gm PO Q15M PRN; Protocol PRN Reason: per Hypoglycemia Standing Ord. Hydromorphone HCl (Hydromorphone Hcl 1 Mg/Ml Syringe) 1 mg IVPUSH Q4H PRN; Protocol PRN Reason: Pain, Severe (Pain Scale 7-10) Last Admin: 12/12/24 17:28 Dose: 1 mg Documented By: ELMA Hydroxyzine HCl (Hydroxyzine Hcl 50 Mg Tablet) 50 mg PO BID PRN PRN Reason: Anxiety Insulin Glargine (Insulin Glargine,Hum.Rec.Anlog 100 Unit/Ml 10 Ml Vial) 30 unit SUBCUT BID [facility] Last Admin: 12/13/24 09:30 Dose: 30 unit Documented By: DEBBIE Magnesium Hydroxide (Milk Of Magnesia 30 Ml Oral.Susp) 30 ml PO DAILY PRN PRN Reason: Constipation Last Admin: 12/10/24 09:59 Dose: 30 ml Documented By: GISSELLE Melatonin (Melatonin 3 Mg Tablet) 6 mg PO BEDTIME PRN PRN Reason: Insomnia Metformin HCl (Metformin Hcl Er 500 Mg Tab.Er.24h) 500 mg PO BID [facility] Last Admin: 12/13/24 09:29 Dose: 500 mg Documented By: DEBBIE Methadone HCl (Methadone Hcl 20 Mg/2 Ml Oral.Conc) 50 mg PO DAILY@0800 [facility] Last Admin: 12/13/24 09:27 Dose: 50 mg Documented By: DEBBIE Co-signed By: GISSELLE Comments: med given late, waiting for skin diver Nicotine (Nicotine 21 Mg Patch.Td24) 21 mg TRANSDERMA DAILY [facility] Last Admin: 12/13/24 09:28 Dose: 21 mg Documented By: DEBBIE Polyethylene Glycol (Polyethylene Glycol 3350 17 Gm Powd.Pack) 17 gm PO DAILY PRN PRN Reason: Constipation Sodium Chloride (0.9 % Sodium Chloride Flush 3 Ml Syringe) 3 ml IVFLUSH QSHIFT [facility] Last Admin: 12/13/24 09:29 Dose: 3 ml Documented By: DEBBIE Tamsulosin HCl (Tamsulosin Hcl 0.4 Mg Capsule) 0.4 mg PO DAILY [facility] Last Admin: 12/13/24 09:29 Dose: 0.4 mg Documented By: DEBBIE Labs 12/12/24 07:02 12/12/24 07:02 Labs: Laboratory Results - last 24 hr 12/12/24 12/12/24 12/13/24 16:20 20:21 07:37 POC Glucose 108 114 97 12/13/24 11:34 POC Glucose 106 Assessment and Plan (1) Cocaine abuse: Status: Acute Plan 59M PMH polysubstance dependence, hfref EF 20-25%, DM, vt/vf cardiac arrest 10/2022, cva with left hemiparesis, wheelchair bound, morbid obesity, presented 12/07/2024 to the ED after falling from his wheelchair. Became septic on 12/09/2024 in the ED. Acute metabolic encephalopathy due to sepsis (not severe) due to urinary tract infection Ceftriaxone, follow up cultures - urine klebsiella, blood negative mental status back to baseline Acute hypoxic respiratory failure Suspect due to sepsis, wean O2 as tolerated Diabetes Basal bolus insulin Polysubstance dependence Addiction eval History of CVA with left hemiparesis Aspirin statin Chronic systolic CHF Monitor for fluid overload DVT prophylaxis with Lovenox Full Code reason for continued hospitalization:medically cleared, care team eval Quality Stroke Does the patient have a stroke diagnosis?: No VTE Prior VTE?: No VTE Risk Level:: Medical - moderate - high VTE Device Contraindication: Treatment Not Indicated VTE Drug Contraindication: N/A - Med Ordered
[2024-12-13 16:18] LABS: Glucose, Whole Blood 52 mg/dL (60-115)
[2024-12-13] MEDS: Glucose Gel 15 GM GEL..GRAM. PO ×2 (16:22→16:23)
[2024-12-13] MEDS: Milk of Magnesia 30 ML ORAL.SUSP PO (16:22)
[2024-12-13 16:48] LABS: Glucose, Whole Blood 70 mg/dL (60-115)
[2024-12-13 17:41] LABS: Glucose, Whole Blood 118 mg/dL (60-115)
[2024-12-13 20:00] VITALS: BP 150/84; PULSE 82; RESP 18; TEMP 36.9; O2SAT 97
[2024-12-13 21:21] LABS: Glucose, Whole Blood 111 mg/dL (60-115)
[2024-12-13 21:27] LABS: Glucose, Whole Blood 107 mg/dL (60-115)
[2024-12-14] VITALS (8 sets, daily range): BP systolic 131–160; BP diastolic 67–72; PULSE 66–95; RESP 16–18; TEMP 36.6–36.9; O2SAT 92–100
--- NOTE | 2024-12-14 | ECG_ITS ---
Test Reason : chest pain Blood Pressure : */* mmHG Vent. Rate : 75 BPM Atrial Rate : 75 BPM P-R Int : 154 ms QRS Dur : 120 ms QT Int : 422 ms P-R-T Axes : 57 -16 107 degrees QTcB Int : 471 ms Normal sinus rhythm Non-specific intra-ventricular conduction delay Minimal voltage criteria for LVH, may be normal variant ( [place] product ) Nonspecific T wave abnormality Abnormal ECG When compared with ECG of 09-Dec-2024 07:39, Premature ventricular complexes are no longer Present Referred By: Rachael Hernandez Electronically Signed By: RADHA TOSCANO
[2024-12-14 07:42] LABS: Glucose, Whole Blood 79 mg/dL (60-115)
[2024-12-14 08:57] LABS: Creatinine Clr Calc Pharmacy 118.5; Estimated Glomerular Filt Rate > 60
[2024-12-14] MEDS: methADONE HCl 20 MG/2 ML ORAL.CONC 50 MG PO (08:58)
[2024-12-14] MEDS: Aspirin Enteric Coated 81 MG TABLET.DR PO (08:59)
[2024-12-14] MEDS: Nicotine 21 MG PATCH.TD24 TRANSDERMA (08:59)
[2024-12-14] MEDS: 0.9 % Sodium Chloride Flush 3 ML SYRINGE IVFLUSH ×2 (08:59→15:41)
[2024-12-14 11:28] LABS: Glucose, Whole Blood 119 mg/dL (60-115)
--- NOTE | 2024-12-14 11:33 | MHC.CM.PN ---
EMR REVIEWED, PT STILL AWAITING BED TO OPEN UP AT [facility], CM ALSO HEARD BACK FROM [facility] WHO DO NOT HAVE A BED AVAILABLE, RECOVERY NURSE WORKING ON GUEST DOSING, CM WILL CONT TO FOLLOW DC NEEDS.
[2024-12-14 15:50] LABS: Anion Gap 11 (12-20); Blood Urea Nitrogen 17 mg/dL (9-16); Calcium 8.8 mg/dL (8.4-10.2); Carbon Dioxide 26 mmol/L (22-29); Chloride 103 mmol/L (96-108); Potassium 4.4 mmol/L (3.3-5.1); Sodium 136 mmol/L (135-145)
[2024-12-14 15:52] LABS: Glucose, Whole Blood 115 mg/dL (60-115)
[2024-12-14 16:05] LABS: Troponin-I High Sensitivity 20.5 ng/L (<3.5-35.0)
--- NOTE | 2024-12-14 18:32 | P.PNIM_ITS ---
Subjective Subjective Date of Service: 12/14/24 Interval History: uti Review of Systems chest tightness-mostly reproducible, pleuritic. Denies any cough or fever Review of Systems: Yes all other systems are reviewed and are negative Physical Exam 2 Exam: Exam: General: alert, no acute distress Resp: air entry fair,diminished bilateral, no accessory muscles used CVS: S1,S2,RRR GI: soft, non tender, non distended Neuro: motor grossly intact, alert Vital Signs: Vital Signs: Last Vital Signs Temp 98.2 F 12/14/24 15:51 Pulse 66 12/14/24 15:51 Resp 18 12/14/24 15:51 BP 131/68 12/14/24 15:51 Pulse Ox 92 12/14/24 15:51 O2 Del Method Room Air 12/14/24 15:51 O2 Flow Rate 2 12/10/24 08:00 BMI result Body Mass Index 35.8 Objective Data Active Medications Acetaminophen (Acetaminophen 325 Mg Tablet) 650 mg PO Q6H PRN PRN Reason: Pain, Mild 1-3,fever,headache Last Admin: 12/09/24 21:28 Dose: 650 mg Documented By: PIETRO Albuterol/Ipratropium (Albuterol/Iprat 2.5/0.5mg 3 Ml Ampul.Neb) 3 ml INHALE RQ4H WHILE AWAKE PRN PRN Reason: sob Last Admin: 12/10/24 15:34 Dose: 3 ml Documented By: CONCEPCION Aspirin (Aspirin Enteric Coated 81 Mg Tablet.) 81 mg PO DAILY [facility] Last Admin: 12/14/24 08:59 Dose: 81 mg Documented By: MUKUND Atorvastatin Calcium (Atorvastatin Calcium 80 Mg Tablet) 80 mg PO BEDTIME [facility] Last Admin: 12/13/24 20:44 Dose: 80 mg Documented By: GLENROY Calcium Carbonate (Calcium Carbonate 750 Mg Tab.Chew) 750 mg PO Q4H PRN PRN Reason: Heartburn Ceftriaxone Sodium (Ceftriaxone Sodium 1 Gm Vial) 1 gm IVPUSH Q24H [facility] Last Admin: 12/14/24 09:00 Dose: 1 gm Documented By: MUKUND Dextrose (Dextrose 50 % 25 Gm/50 Ml Syringe) 25 gm IVPUSH Q15M PRN; Protocol PRN Reason: per Hypoglycemia Standing Ord. Dextrose (Dextrose 50 % 25 Gm/50 Ml Syringe) 25 gm IVPUSH Q15M PRN; Protocol PRN Reason: per Hypoglycemia Standing Ord. Docusate Sodium (Docusate Sodium 100 Mg Capsule) 200 mg PO BEDTIME PRN PRN Reason: Constipation Enoxaparin Sodium (Enoxaparin Sodium 40 Mg/0.4 Ml Syringe) 40 mg SUBCUT Q24H [facility] Last Admin: 12/14/24 08:59 Dose: 40 mg Documented By: MUKUND Gabapentin (Gabapentin 300 Mg Capsule) 300 mg PO TID [facility] Last Admin: 12/14/24 15:40 Dose: 300 mg Documented By: MUKUND Glucose (Glucose Gel 15 Gm Gel..Gram.) 15 gm PO Q15M PRN; Protocol PRN Reason: per Hypoglycemia Standing Ord. Last Admin: 12/13/24 16:23 Dose: 15 gm Documented By: DEBBIE Glucose (Glucose Gel 15 Gm Gel..Gram.) 15 gm PO Q15M PRN; Protocol PRN Reason: per Hypoglycemia Standing Ord. Hydromorphone HCl (Hydromorphone Hcl 1 Mg/Ml Syringe) 1 mg IVPUSH Q4H PRN; Protocol PRN Reason: Pain, Severe (Pain Scale 7-10) Last Admin: 12/14/24 15:41 Dose: 1 mg Documented By: MUKUND Hydroxyzine HCl (Hydroxyzine Hcl 50 Mg Tablet) 50 mg PO BID PRN PRN Reason: Anxiety Insulin Glargine (Insulin Glargine,Hum.Rec.Anlog 100 Unit/Ml 10 Ml Vial) 30 unit SUBCUT BID [facility] On Hold: 12/14/24 08:26 Last Admin: 12/13/24 17:40 Dose: Not Given Documented By: DEBBIE Non-Admin Reason: Physician Held Med Comments: hypoglycemia Insulin Human Lispro (Insulin Lispro 100 Unit/Ml 3 Ml Vial) 0 unit SUBCUT QIDACHS [facility]; Protocol Last Admin: 12/14/24 16:21 Dose: Not Given Documented By: MUKUND Non-Admin Reason: No Insulin Coverage Magnesium Hydroxide (Milk Of Magnesia 30 Ml Oral.Susp) 30 ml PO DAILY PRN PRN Reason: Constipation Last Admin: 12/13/24 16:22 Dose: 30 ml Documented By: DEBBIE Melatonin (Melatonin 3 Mg Tablet) 6 mg PO BEDTIME PRN PRN Reason: Insomnia Metformin HCl (Metformin Hcl Er 500 Mg Tab.Er.24h) 500 mg PO BID [facility] On Hold: 12/14/24 08:26 Last Admin: 12/13/24 20:46 Dose: Not Given Documented By: GLENROY Non-Admin Reason: Physician Held Med Methadone HCl (Methadone Hcl 20 Mg/2 Ml Oral.Conc) 50 mg PO DAILY@0800 [facility] Last Admin: 12/14/24 08:58 Dose: 50 mg Documented By: MUKUND Co-signed By: ANISHA Nicotine (Nicotine 21 Mg Patch.Td24) 21 mg TRANSDERMA DAILY [facility] Last Admin: 12/14/24 08:59 Dose: 21 mg Documented By: MUKUND Polyethylene Glycol (Polyethylene Glycol 3350 17 Gm Powd.Pack) 17 gm PO DAILY PRN PRN Reason: Constipation Sodium Chloride (0.9 % Sodium Chloride Flush 3 Ml Syringe) 3 ml IVFLUSH QSHIFT [facility] Last Admin: 12/14/24 15:41 Dose: 3 ml Documented By: MUKUND Tamsulosin HCl (Tamsulosin Hcl 0.4 Mg Capsule) 0.4 mg PO DAILY [facility] Last Admin: 12/14/24 08:59 Dose: 0.4 mg Documented By: MUKUND Labs 12/12/24 07:02 12/14/24 08:19 Labs: Laboratory Results - last 24 hr 12/13/24 12/13/24 12/14/24 20:38 21:16 07:18 Anion Gap Estim Creat Clear Calc Estimated GFR POC Glucose 107 111 79 Random Glucose Calcium 12/14/24 12/14/24 12/14/24 08:19 11:01 15:49 Anion Gap 11 L Estim Creat Clear Calc 118.5 Estimated GFR > 60 POC Glucose 119 H 115 Random Glucose 117 H Calcium 8.8 Microbiology Microbiology Results: Microbiology 12/07/24 20:56 Urine Culture - Final Urine clean catch - Clean Catch Midstream Klebsiella pneumoniae 12/09/24 08:54 Blood Culture - Final Blood - Venous No growth after 5 days. 12/09/24 08:53 Blood Culture - Final Blood - Venous No growth after 5 days. Assessment and Plan (1) Cocaine abuse: Status: Acute Plan 59M PMH polysubstance dependence, hfref EF 20-25%, DM, vt/vf cardiac arrest 10/2022, cva with left hemiparesis, wheelchair bound, morbid obesity, presented 12/07/2024 to the ED after falling from his wheelchair. Became septic on 12/09/2024 in the ED. chest tightness-reproducible/pleuritic EKG seems NSR, Troponin x1 is 20, another troponin added pending 8 beat episode of nsvt electrolytes seems fine cxr-pending cardiology eval added( possible cardiomyopathy -with polysubstance use) Acute metabolic encephalopathy due to sepsis (not severe) due to urinary tract infection Ceftriaxone, follow up cultures - urine klebsiella, blood negative mental status back to baseline Acute hypoxic respiratory failure Suspect due to sepsis, wean O2 as tolerated Diabetes Basal bolus insulin Polysubstance dependence Addiction eval History of CVA with left hemiparesis Aspirin statin Chronic systolic CHF Monitor for fluid overload DVT prophylaxis with Lovenox Full Code reason for continued hospitalization:chest pain-need cardiac workup/cardiology eval. Quality Stroke Does the patient have a stroke diagnosis?: No VTE Prior VTE?: No VTE Risk Level:: Medical - moderate - high VTE Device Contraindication: Treatment Not Indicated VTE Drug Contraindication: N/A - Med Ordered
[2024-12-14] MEDS: Lidocaine 4 % Patch ADH..PATCH 2 PATCH TRANSDERMA (18:43)
[2024-12-14 19:03] LABS: Magnesium 2.1 mg/dL (1.6-2.6)
[2024-12-14 19:32] LABS: Troponin-I High Sensitivity 21.5 ng/L (<3.5-35.0)
[2024-12-14 20:44] LABS: Glucose, Whole Blood 106 mg/dL (60-115)
[2024-12-15] VITALS (7 sets, daily range): BP systolic 125–159; BP diastolic 59–77; PULSE 76–88; RESP 16–18; TEMP 35.9–36.6; O2SAT 98–100
[2024-12-15] MEDS: 0.9 % Sodium Chloride Flush 3 ML SYRINGE IVFLUSH ×4 (01:04→21:23)
[2024-12-15 07:25] LABS: Glucose, Whole Blood 102 mg/dL (60-115)
[2024-12-15] MEDS: Aspirin Enteric Coated 81 MG TABLET.DR PO (09:24)
[2024-12-15] MEDS: methADONE HCl 20 MG/2 ML ORAL.CONC 50 MG PO (09:24)
[2024-12-15] MEDS: Lidocaine 4 % Patch ADH..PATCH 2 PATCH TRANSDERMA (09:25)
[2024-12-15] MEDS: Nicotine 21 MG PATCH.TD24 TRANSDERMA (09:25)
--- NOTE | 2024-12-15 10:23 | P.CONCA_ITS ---
History of Present Illness History of Present Illness Date of Service: 12/15/24 Chief complaint: sepsis Narrative: This is a cardiology consultation regarding chest pain. Patient with many comorbidities including diabetes, hypertension, dyslipidemia, smoking, substance abuse among others. He was last seen in clinic in 2021. Known cardiomyopathy with ejection fraction in the 20s. He had reported stabbing chest pains at different times. Cardiac catheterization was then arranged but not completed. In 2022, it appears that he actually had cardiac arrest and at that time seen by and he arranged a diagnostic catheterization. That showed mild disease in the LAD; moderate OM1/RCA disease. Overall, nonobstructive CAD with cardiomyopathy. Patient is not followed up in the clinic. Current admission is because of falling from the wheelchair. Per notes, worsening anxiety and depression and increased use of heroin and cocaine and in this context,, he fell low-dose wheelchair onto his left shoulder. He had been complaining of left- sided chest /shoulder pains. Upon questioning him, it seems that he is primarily happening whenever he is trying to move what Lydia extra. Overall, sounds more musculoskeletal than truly cardiac. Review of Systems 2 Review of Systems: Yes all other systems are reviewed and are negative Constitutional: Constitutional: Reports as per HPI and Reports no additional constitutional complaints Eyes: Eyes: Reports as per HPI and Denies no additional eye complaints ENT: Denies system reviewed and no additional complaints, except as documented and Reports as per HPI Cardiovascular: Cardiovascular: Reports as per HPI, Reports no additional cardiovascular complaints, Denies acrocyanosis, Denies cool extremities, Reports chest pain, Denies leg edema, Denies lightheadedness, Denies palpitations and Denies dyspnea Respiratory: Respiratory: Reports as per HPI, Denies no additional respiratory complaints and Denies dyspnea Gastrointestinal: Gastrointestinal: Reports as per HPI and Denies no additional gastrointestinal complaints Genitourinary: Genitourinary: Reports no additional male genitourinary complaints and Reports as per HPI Musculoskeletal: Musculoskeletal: Reports no additional musculoskeletal complaints and Reports as per HPI Integumentary/Breasts: Skin/Breast: Reports system reviewed and no additional complaints, except as docu Neurologic: Reports system reviewed and no additional complaints, except as documented and Reports as per HPI Psychiatric: Psychiatric: Reports no additional psychiatric complaints and Reports as per HPI Endocrine: Endocrine: Reports no additional endocrine complaints, Reports as per HPI and Denies palpitations Hematologic/Lymphatic: Hematologic/Lymphatic: Reports no additional hematologic/lymphatic complaints and Reports as per HPI Allergic/Immunologic: Allergic/Immunologic: Reports no additional allergic/immunologic complaints and Reports as per HPI [facility] Past Medical History Medical History (Updated 12/15/24 @ 10:30 by Salo Shankar MD) Substance abuse Type 2 diabetes mellitus with unspecified complications Essential hypertension Unstable angina History of CVA (cerebrovascular accident) Diabetes HTN (hypertension) Morbid obesity Chest pain Family History Family History Other CAD (coronary artery disease) Diabetes HTN (hypertension) Surgical History Surgical History H/O hand surgery Social History Social History Household Members: None Housing: Apartment Do you presently have visiting nurse or other home services: Yes Patient Tobacco Use Status: Tobacco use Unknown Tobacco use type: Cigarette Cigarette Packs Per Day: 1 Cigarettes Per Day: 20.0 e-Cigarette/Vaping Use: Never Used Second Hand Smoke Exposure: Yes Substance Use Type: Heroin Advance Directives Date on File: 11/25/23 service: No Current occupational status: unemployed Meds Allergies Allergy/AdvReac Type Severity Reaction Status Date / Time Penicillins (PCN) Allergy Intermediate HIVES Verified 12/07/24 17:12 Active Medications: Current Medications Acetaminophen (Acetaminophen 325 Mg Tablet) 650 mg PO Q6H PRN PRN Reason: Pain, Mild 1-3,fever,headache Last Admin: 12/09/24 21:28 Dose: 650 mg Albuterol/Ipratropium (Albuterol/Iprat 2.5/0.5mg 3 Ml Ampul.Neb) 3 ml INHALE RQ4H WHILE AWAKE PRN PRN Reason: sob Last Admin: 12/10/24 15:34 Dose: 3 ml Aspirin (Aspirin Enteric Coated 81 Mg Tablet.Dr) 81 mg PO DAILY JAMIE Last Admin: 12/15/24 09:24 Dose: 81 mg Atorvastatin Calcium (Atorvastatin Calcium 80 Mg Tablet) 80 mg PO BEDTIME JAMIE Last Admin: 12/14/24 20:01 Dose: 80 mg Calcium Carbonate (Calcium Carbonate 750 Mg Tab.Chew) 750 mg PO Q4H PRN PRN Reason: Heartburn Ceftriaxone Sodium (Ceftriaxone Sodium 1 Gm Vial) 1 gm IVPUSH Q24H [facility] Last Admin: 12/15/24 09:25 Dose: 1 gm Dextrose (Dextrose 50 % 25 Gm/50 Ml Syringe) 25 gm IVPUSH Q15M PRN; Protocol PRN Reason: per Hypoglycemia Standing Ord. Dextrose (Dextrose 50 % 25 Gm/50 Ml Syringe) 25 gm IVPUSH Q15M PRN; Protocol PRN Reason: per Hypoglycemia Standing Ord. Docusate Sodium (Docusate Sodium 100 Mg Capsule) 200 mg PO BEDTIME PRN PRN Reason: Constipation Enoxaparin Sodium (Enoxaparin Sodium 40 Mg/0.4 Ml Syringe) 40 mg SUBCUT Q24H [facility] Last Admin: 12/15/24 09:24 Dose: 40 mg Gabapentin (Gabapentin 300 Mg Capsule) 300 mg PO TID [facility] Last Admin: 12/15/24 09:24 Dose: 300 mg Glucose (Glucose Gel 15 Gm Gel..Gram.) 15 gm PO Q15M PRN; Protocol PRN Reason: per Hypoglycemia Standing Ord. Last Admin: 12/13/24 16:23 Dose: 15 gm Glucose (Glucose Gel 15 Gm Gel..Gram.) 15 gm PO Q15M PRN; Protocol PRN Reason: per Hypoglycemia Standing Ord. Hydromorphone HCl (Hydromorphone Hcl 1 Mg/Ml Syringe) 1 mg IVPUSH Q4H PRN; Protocol PRN Reason: Pain, Severe (Pain Scale 7-10) Last Admin: 12/14/24 20:01 Dose: 1 mg Hydroxyzine HCl (Hydroxyzine Hcl 50 Mg Tablet) 50 mg PO BID PRN PRN Reason: Anxiety Insulin Glargine (Insulin Glargine,Hum.Rec.Anlog 100 Unit/Ml 10 Ml Vial) 30 unit SUBCUT BID JAMIE On Hold: 12/14/24 08:26 Last Admin: 12/13/24 17:40 Dose: Not Given Insulin Human Lispro (Insulin Lispro 100 Unit/Ml 3 Ml Vial) 0 unit SUBCUT QIDACHS [facility]; Protocol Last Admin: 12/15/24 09:27 Dose: Not Given Lidocaine (Lidocaine 4 % Patch Adh..Patch) 2 patch TRANSDERMA DAILY [facility]; Protocol Last Admin: 12/15/24 09:25 Dose: 2 patch Magnesium Hydroxide (Milk Of Magnesia 30 Ml Oral.Susp) 30 ml PO DAILY PRN PRN Reason: Constipation Last Admin: 12/13/24 16:22 Dose: 30 ml Melatonin (Melatonin 3 Mg Tablet) 6 mg PO BEDTIME PRN PRN Reason: Insomnia Metformin HCl (Metformin Hcl Er 500 Mg Tab.Er.24h) 500 mg PO BID [facility] On Hold: 12/14/24 08:26 Last Admin: 12/13/24 20:46 Dose: Not Given Methadone HCl (Methadone Hcl 20 Mg/2 Ml Oral.Conc) 50 mg PO DAILY@0800 [facility] Last Admin: 12/15/24 09:24 Dose: 50 mg Nicotine (Nicotine 21 Mg Patch.Td24) 21 mg TRANSDERMA DAILY [facility] Last Admin: 12/15/24 09:25 Dose: 21 mg Polyethylene Glycol (Polyethylene Glycol 3350 17 Gm Powd.Pack) 17 gm PO DAILY PRN PRN Reason: Constipation Sodium Chloride (0.9 % Sodium Chloride Flush 3 Ml Syringe) 3 ml IVFLUSH QSHIFT [facility] Last Admin: 12/15/24 09:25 Dose: 3 ml Tamsulosin HCl (Tamsulosin Hcl 0.4 Mg Capsule) 0.4 mg PO DAILY [facility] Last Admin: 12/15/24 09:25 Dose: 0.4 mg Home Medications ?Medication ?Instructions ?Recorded ?Confirmed ?Last Taken ?Type aspirin 81 mg tablet,delayed 81 mg PO DAILY 01/18/23 0 12/08/24 Unknown History release insulin glargine 100 unit/mL (3 30 unit subcut BID 04/0112/08/24 Unknown History mL) subcutaneous pen (Lantus Solostar U-100 Insulin) atorvastatin 80 mg tablet 80 mg PO BEDTIME 11/13/23 Unknown History docusate sodium 100 mg capsule 200 mg PO BEDTIME PRN C onstipation 11/13/23 12/08/24 Unknown History (Colace) gabapentin 300 mg capsule 300 mg PO TID 11/13/2312/08 Unknown History hydroxyzine HCl 50 mg tablet 50 mg PO BID PRN Anxiety 11/13/23 12/08/24 Unknown History losartan 50 mg tablet 50 mg PO DAILY 11/13/2306/03 Unknown History metformin 500 mg tablet,extended 500 mg PO BID 4 12/08/24 Unknown History release 24 hr polyethylene glycol 3350 17 17 g PO DAILY PRN Constipa tion 11/13/23 12/08/24 Unknown History gram/dose oral powder (Miralax) tamsulosin 0.4 mg capsule 0.4 mg PO DAILY 11/13/2306/03 Unknown History insulin aspart U-100 100 unit/mL 5 sliding scale dose subcut TID 12/08/24 12/08/24 Unknown History (3 mL) subcutaneous pen Physical Exam 2 Vital Signs: Vital Signs: Last Vital Signs Temp 97.1 F 12/15/24 07:45 Pulse 79 12/15/24 07:45 Resp 17 12/15/24 07:45 BP 145/67 H 12/15/24 07:45 Pulse Ox 99 12/15/24 07:45 O2 Del Method Room Air 12/15/24 07:45 O2 Flow Rate 2 12/10/24 08:00 BMI result Body Mass Index 35.8 Const: General: comfortable and no acute distress O rientation/consciousness: patient oriented x3 HEENT: Other: Unremarkable Head: Yes normal to inspection Neck: Neck: Yes normal visual inspection Chest: Chest palpation & inspection: normal inspection of the chest Resp: Auscultation: clear to auscultation bilaterally Cardio: Palpation: normal PMI Heart sounds: S1 normal heart sound present, S2 normal heart sound present, no gallops, no murmurs and no rubs GI: Palpation (GI): Soft to palpation Back/Spine/Pelvis: Other: unremarkable Skin: General skin exam: no rashes or lesions noted Neuro: General: patient oriented x3 Extrem: General: Yes normal to inspection Psych: Mental Status: mental status grossly normal Objective Labs and Meds 12/12/24 07:02 12/14/24 08:19 Lab results: Laboratory Results - last 24 hr 12/14/24 12/14/24 12/14/24 08:19 11:01 15:40 Sodium 136 Potassium 4.4 Chloride 103 Carbon Dioxide 26 Anion Gap 11 L BUN 17 H Creatinine 0.72 Estim Creat Clear Calc 118.5 Estimated GFR > 60 POC Glucose 119 H Random Glucose 117 H Calcium 8.8 Magnesium 2.1 Troponin I High Sens 20.5 12/14/24 12/14/24 12/14/24 15:49 18:58 20:41 Sodium Potassium Chloride Carbon Dioxide Anion Gap BUN Creatinine Estim Creat Clear Calc Estimated GFR POC Glucose 115 106 Random Glucose Calcium Magnesium Troponin I High Sens 21.5 12/15/24 07:22 Sodium Potassium Chloride Carbon Dioxide Anion Gap BUN Creatinine Estim Creat Clear Calc Estimated GFR POC Glucose 102 Random Glucose Calcium Magnesium Troponin I High Sens ECG Interpretation: EKG shows underlying sinus rhythm at 75/Min with nonspecific intraventricular conduction delay. Nonspecific ST-T changes. Similar to prior. Imaging Radiologist's impression: Impressions Chest X-Ray 12/14/24 16:14 IMPRESSION: No acute cardiopulmonary abnormality. Electronically signed by: Erik Britton MD 12/15/2024 07:12 AM EDT RP Assessment and Plan (1) NICM (nonischemic cardiomyopathy): Status: Acute (2) Atherosclerotic cardiovascular disease: Status: Acute (3) Polysubstance abuse: Status: Acute Plan Tox screen positive for opiates, fentanyl, cocaine, marijuana. Last echocardiogram with LVEF of 20 25%. Severe global hypokinesis and basal inferior akinesis. Cardiac catheterization 2022-mild LAD disease. Moderate disease in the OM1/RCA. High sensitivity troponin levels are 36, 20 in 21. Cardiac BNP 141. Telemetry shows sinus rhythm and one episode of monomorphic NSVT, 8 beats. Overall, chest pain itself seems noncardiac and does not need any specific workup for that. With regard to the cardiomyopathy/coronary disease, main recommendation would be to abstain from substance abuse but I am not clear if he will do that as it has been a long-term problem. He does not follow up in the clinic either. Hence at least continue the usual home medications of aspirin and statins. Because of the cardiomyopathy and ongoing substance abuse, high risk of . Procedures Date of Service Date of Service: 12/15/24
--- NOTE | 2024-12-15 11:16 | MHC.CM.PN ---
EMR REVIEWED, CM WORKING ON [employer] SERVICES APPROVAL, PASRR LEVEL ONE TO BE COMPLETED PER THEIR REQUEST, RECOVERY NURSE STILL WORKING ON GUEST DOSING, CM WILL CONT TO FOLLOW.
[2024-12-15 11:19] LABS: Glucose, Whole Blood 106 mg/dL (60-115)
[2024-12-15 16:51] LABS: Glucose, Whole Blood 133 mg/dL (60-115)
--- NOTE | 2024-12-15 16:53 | P.PNIM_ITS ---
Subjective Subjective Date of Service: 12/15/24 Interval History: chest pain improved. Review of Systems no new symptoms Physical Exam 2 Exam: Exam: General: alert, no acute distress Resp: air entry fair,diminished bilateral, no accessory muscles used CVS: S1,S2,RRR GI: soft, non tender, non distended Neuro: motor grossly intact, alert Vital Signs: Vital Signs: Last Vital Signs Temp 97.4 F 12/15/24 11:38 Pulse 79 12/15/24 11:38 Resp 18 12/15/24 11:38 BP 133/70 12/15/24 11:38 Pulse Ox 99 12/15/24 11:38 O2 Del Method Room Air 12/15/24 11:38 O2 Flow Rate 2 12/10/24 08:00 BMI result Body Mass Index 35.8 Objective Data Active Medications Acetaminophen (Acetaminophen 325 Mg Tablet) 650 mg PO Q6H PRN PRN Reason: Pain, Mild 1-3,fever,headache Last Admin: 12/09/24 21:28 Dose: 650 mg Documented By: PIETRO Albuterol/Ipratropium (Albuterol/Iprat 2.5/0.5mg 3 Ml Ampul.Neb) 3 ml INHALE RQ4H WHILE AWAKE PRN PRN Reason: sob Last Admin: 12/10/24 15:34 Dose: 3 ml Documented By: CONCEPCION Aspirin (Aspirin Enteric Coated 81 Mg Tablet.) 81 mg PO DAILY [facility] Last Admin: 12/15/24 09:24 Dose: 81 mg Documented By: YUSEF Atorvastatin Calcium (Atorvastatin Calcium 80 Mg Tablet) 80 mg PO BEDTIME [facility] Last Admin: 12/14/24 20:01 Dose: 80 mg Documented By: GISELA Calcium Carbonate (Calcium Carbonate 750 Mg Tab.Chew) 750 mg PO Q4H PRN PRN Reason: Heartburn Ceftriaxone Sodium (Ceftriaxone Sodium 1 Gm Vial) 1 gm IVPUSH Q24H [facility] Last Admin: 12/15/24 09:25 Dose: 1 gm Documented By: YUSEF Dextrose (Dextrose 50 % 25 Gm/50 Ml Syringe) 25 gm IVPUSH Q15M PRN; Protocol PRN Reason: per Hypoglycemia Standing Ord. Dextrose (Dextrose 50 % 25 Gm/50 Ml Syringe) 25 gm IVPUSH Q15M PRN; Protocol PRN Reason: per Hypoglycemia Standing Ord. Docusate Sodium (Docusate Sodium 100 Mg Capsule) 200 mg PO BEDTIME PRN PRN Reason: Constipation Enoxaparin Sodium (Enoxaparin Sodium 40 Mg/0.4 Ml Syringe) 40 mg SUBCUT Q24H [facility] Last Admin: 12/15/24 09:24 Dose: 40 mg Documented By: YUSEF Gabapentin (Gabapentin 300 Mg Capsule) 300 mg PO TID [facility] Last Admin: 12/15/24 14:20 Dose: 300 mg Documented By: YUSEF Glucose (Glucose Gel 15 Gm Gel..Gram.) 15 gm PO Q15M PRN; Protocol PRN Reason: per Hypoglycemia Standing Ord. Last Admin: 12/13/24 16:23 Dose: 15 gm Documented By: DEBBIE Glucose (Glucose Gel 15 Gm Gel..Gram.) 15 gm PO Q15M PRN; Protocol PRN Reason: per Hypoglycemia Standing Ord. Hydromorphone HCl (Hydromorphone Hcl 1 Mg/Ml Syringe) 1 mg IVPUSH Q4H PRN; Protocol PRN Reason: Pain, Severe (Pain Scale 7-10) Last Admin: 12/14/24 20:01 Dose: 1 mg Documented By: GISELA Hydroxyzine HCl (Hydroxyzine Hcl 50 Mg Tablet) 50 mg PO BID PRN PRN Reason: Anxiety Insulin Glargine (Insulin Glargine,Hum.Rec.Anlog 100 Unit/Ml 10 Ml Vial) 30 unit SUBCUT BID JAMIE On Hold: 12/14/24 08:26 Last Admin: 12/13/24 17:40 Dose: Not Given Documented By: DEBBIE Non-Admin Reason: Physician Held Med Comments: hypoglycemia Insulin Human Lispro (Insulin Lispro 100 Unit/Ml 3 Ml Vial) 0 unit SUBCUT QIDACHS [facility]; Protocol Last Admin: 12/15/24 11:59 Dose: Not Given Documented By: YUSEF Non-Admin Reason: No Insulin Coverage Lidocaine (Lidocaine 4 % Patch Adh..Patch) 2 patch TRANSDERMA DAILY [facility]; Protocol Last Admin: 12/15/24 09:25 Dose: 2 patch Documented By: YUSEF Magnesium Hydroxide (Milk Of Magnesia 30 Ml Oral.Susp) 30 ml PO DAILY PRN PRN Reason: Constipation Last Admin: 12/13/24 16:22 Dose: 30 ml Documented By: DEBBIE Melatonin (Melatonin 3 Mg Tablet) 6 mg PO BEDTIME PRN PRN Reason: Insomnia Metformin HCl (Metformin Hcl Er 500 Mg Tab.Er.24h) 500 mg PO BID [facility] On Hold: 12/14/24 08:26 Last Admin: 12/13/24 20:46 Dose: Not Given Documented By: GLENROY Non-Admin Reason: Physician Held Med Methadone HCl (Methadone Hcl 20 Mg/2 Ml Oral.Conc) 50 mg PO DAILY@0800 [facility] Last Admin: 12/15/24 09:24 Dose: 50 mg Documented By: YUSEF Co-signed By: DEBBIE Nicotine (Nicotine 21 Mg Patch.Td24) 21 mg TRANSDERMA DAILY [facility] Last Admin: 12/15/24 09:25 Dose: 21 mg Documented By: YUSEF Polyethylene Glycol (Polyethylene Glycol 3350 17 Gm Powd.Pack) 17 gm PO DAILY PRN PRN Reason: Constipation Sodium Chloride (0.9 % Sodium Chloride Flush 3 Ml Syringe) 3 ml IVFLUSH QSHIFT [facility] Last Admin: 12/15/24 14:20 Dose: 3 ml Documented By: YUSEF Tamsulosin HCl (Tamsulosin Hcl 0.4 Mg Capsule) 0.4 mg PO DAILY [facility] Last Admin: 12/15/24 09:25 Dose: 0.4 mg Documented By: YUSEF Labs 12/12/24 07:02 12/14/24 08:19 Labs: Laboratory Results - last 24 hr 12/14/24 12/14/24 12/15/24 08:19 20:41 07:22 POC Glucose 106 102 Magnesium 2.1 12/15/24 12/15/24 11:06 16:46 POC Glucose 106 133 H Magnesium Assessment and Plan (1) Cocaine abuse: Status: Acute Plan 59M PMH polysubstance dependence, hfref EF 20-25%, DM, vt/vf cardiac arrest 10/2022, cva with left hemiparesis, wheelchair bound, morbid obesity, presented 12/07/2024 to the ED after falling from his wheelchair. Became septic on 12/09/2024 in the ED. chest tightness-reproducible/pleuritic EKG seems NSR, Troponin x1 is 20, another troponin added pending 8 beat episode of nsvt(12/14/24), no new episode electrolytes seems fine cxr-pending cardiology eval added( possible cardiomyopathy -with polysubstance use)-no new acute interevntion. Acute metabolic encephalopathy due to sepsis (not severe) due to urinary tract infection Ceftriaxone, follow up cultures - urine klebsiella, blood negative mental status back to baseline Acute hypoxic respiratory failure Suspect due to sepsis, wean O2 as tolerated Diabetes Basal bolus insulin Polysubstance dependence Addiction eval History of CVA with left hemiparesis Aspirin statin Chronic systolic CHF Monitor for fluid overload DVT prophylaxis with Lovenox Full Code reason for continued hospitalization:placement Quality Stroke Does the patient have a stroke diagnosis?: No VTE Prior VTE?: No VTE Risk Level:: Medical - moderate - high VTE Device Contraindication: Treatment Not Indicated VTE Drug Contraindication: N/A - Med Ordered
[2024-12-15 21:15] LABS: Glucose, Whole Blood 150 mg/dL (60-115)
[2024-12-15] MEDS: Milk of Magnesia 30 ML ORAL.SUSP PO (21:39)
[2024-12-16 03:18] VITALS: BP 119/64; PULSE 78; RESP 18; TEMP 36.2; O2SAT 96
--- NOTE | 2024-12-16 06:13 | PC.NURSE ---
Pt was seen on a wheelchair heading in to the BR with supervision, back to bed after, pt was seen accusing staff not answering his powell soon enough, flat affect, c/o constipation, last BM as pt claimed was 3 days ago, + BS, abd soft and non tender, MOM given , prm Atarax po given, no BM noted all night, pt slept at long intervals.
[2024-12-16 07:09] VITALS: BP 136/72; PULSE 75; RESP 16; TEMP 36.1; O2SAT 99
[2024-12-16 07:38] LABS: Glucose, Whole Blood 147 mg/dL (60-115)
[2024-12-16] MEDS: methADONE HCl 20 MG/2 ML ORAL.CONC 50 MG PO (08:26)
[2024-12-16] MEDS: Aspirin Enteric Coated 81 MG TABLET.DR PO (08:26)
[2024-12-16] MEDS: Nicotine 21 MG PATCH.TD24 TRANSDERMA (08:27)
[2024-12-16] MEDS: Lidocaine 4 % Patch ADH..PATCH 2 PATCH TRANSDERMA (08:27)
[2024-12-16] MEDS: 0.9 % Sodium Chloride Flush 3 ML SYRINGE IVFLUSH ×2 (08:28→21:05)
--- NOTE | 2024-12-16 11:18 | P.PNIM_ITS ---
Subjective Subjective Date of Service: 12/16/24 Interval History: chest pain improved. Review of Systems no new symptoms Review of Systems: Yes all other systems are reviewed and are negative Physical Exam 2 Exam: Exam: General: alert, no acute distress Resp: air entry fair,diminished bilateral, no accessory muscles used CVS: S1,S2,RRR GI: soft, non tender, non distended Neuro: motor grossly intact, alert Vital Signs: Vital Signs: Last Vital Signs Temp 97.0 F 12/16/24 07:09 Pulse 75 12/16/24 07:09 Resp 16 12/16/24 07:09 BP 136/72 12/16/24 07:09 Pulse Ox 99 12/16/24 07:09 O2 Del Method Room Air 12/16/24 07:09 O2 Flow Rate 2 12/10/24 08:00 BMI result Body Mass Index 35.8 Objective Data Active Medications Acetaminophen (Acetaminophen 325 Mg Tablet) 650 mg PO Q6H PRN PRN Reason: Pain, Mild 1-3,fever,headache Last Admin: 12/09/24 21:28 Dose: 650 mg Documented By: PIETRO Albuterol/Ipratropium (Albuterol/Iprat 2.5/0.5mg 3 Ml Ampul.Neb) 3 ml INHALE RQ4H WHILE AWAKE PRN PRN Reason: sob Last Admin: 12/10/24 15:34 Dose: 3 ml Documented By: CONCEPCION Aspirin (Aspirin Enteric Coated 81 Mg Tablet.) 81 mg PO DAILY [facility] Last Admin: 12/16/24 08:26 Dose: 81 mg Documented By: JESSICA Atorvastatin Calcium (Atorvastatin Calcium 80 Mg Tablet) 80 mg PO BEDTIME [facility] Last Admin: 12/15/24 21:23 Dose: 80 mg Documented By: CASTILSachin Calcium Carbonate (Calcium Carbonate 750 Mg Tab.Chew) 750 mg PO Q4H PRN PRN Reason: Heartburn Ceftriaxone Sodium (Ceftriaxone Sodium 1 Gm Vial) 1 gm IVPUSH Q24H [facility] Last Admin: 12/16/24 08:27 Dose: 1 gm Documented By: JESSICA Dextrose (Dextrose 50 % 25 Gm/50 Ml Syringe) 25 gm IVPUSH Q15M PRN; Protocol PRN Reason: per Hypoglycemia Standing Ord. Dextrose (Dextrose 50 % 25 Gm/50 Ml Syringe) 25 gm IVPUSH Q15M PRN; Protocol PRN Reason: per Hypoglycemia Standing Ord. Docusate Sodium (Docusate Sodium 100 Mg Capsule) 200 mg PO BEDTIME PRN PRN Reason: Constipation Enoxaparin Sodium (Enoxaparin Sodium 40 Mg/0.4 Ml Syringe) 40 mg SUBCUT Q24H [facility] Last Admin: 12/16/24 08:28 Dose: 40 mg Documented By: JESSICA Gabapentin (Gabapentin 300 Mg Capsule) 300 mg PO TID JAMIE Last Admin: 12/16/24 08:26 Dose: 300 mg Documented By: JESSICA Glucose (Glucose Gel 15 Gm Gel..Gram.) 15 gm PO Q15M PRN; Protocol PRN Reason: per Hypoglycemia Standing Ord. Last Admin: 12/13/24 16:23 Dose: 15 gm Documented By: DEBBIE Glucose (Glucose Gel 15 Gm Gel..Gram.) 15 gm PO Q15M PRN; Protocol PRN Reason: per Hypoglycemia Standing Ord. Hydromorphone HCl (Hydromorphone Hcl 1 Mg/Ml Syringe) 1 mg IVPUSH Q4H PRN; Protocol PRN Reason: Pain, Severe (Pain Scale 7-10) Last Admin: 12/15/24 21:39 Dose: 1 mg Documented By: DEIRDRE Hydroxyzine HCl (Hydroxyzine Hcl 50 Mg Tablet) 50 mg PO BID PRN PRN Reason: Anxiety Last Admin: 12/15/24 21:39 Dose: 50 mg Documented By: DEIRDRE Insulin Glargine (Insulin Glargine,Hum.Rec.Anlog 100 Unit/Ml 10 Ml Vial) 30 unit SUBCUT BID JAMIE On Hold: 12/14/24 08:26 Last Admin: 12/13/24 17:40 Dose: Not Given Documented By: DEBBIE Non-Admin Reason: Physician Held Med Comments: hypoglycemia Insulin Human Lispro (Insulin Lispro 100 Unit/Ml 3 Ml Vial) 0 unit SUBCUT QIDACHS [facility]; Protocol Last Admin: 12/16/24 08:28 Dose: Not Given Documented By: JESSICA Non-Admin Reason: No Insulin Coverage Lidocaine (Lidocaine 4 % Patch Adh..Patch) 2 patch TRANSDERMA DAILY [facility]; Protocol Last Admin: 12/16/24 08:27 Dose: 2 patch Documented By: JESSICA Magnesium Hydroxide (Milk Of Magnesia 30 Ml Oral.Susp) 30 ml PO DAILY PRN PRN Reason: Constipation Last Admin: 12/15/24 21:39 Dose: 30 ml Documented By: DEIRDRE Melatonin (Melatonin 3 Mg Tablet) 6 mg PO BEDTIME PRN PRN Reason: Insomnia Metformin HCl (Metformin Hcl Er 500 Mg Tab.Er.24h) 500 mg PO BID [facility] On Hold: 12/14/24 08:26 Last Admin: 12/13/24 20:46 Dose: Not Given Documented By: GLENROY Non-Admin Reason: Physician Held Med Methadone HCl (Methadone Hcl 20 Mg/2 Ml Oral.Conc) 50 mg PO DAILY@0800 [facility] Last Admin: 12/16/24 08:26 Dose: 50 mg Documented By: JESSICA Co-signed By: BRAYDEN Nicotine (Nicotine 21 Mg Patch.Td24) 21 mg TRANSDERMA DAILY [facility] Last Admin: 12/16/24 08:27 Dose: 21 mg Documented By: JESSICA Polyethylene Glycol (Polyethylene Glycol 3350 17 Gm Powd.Pack) 17 gm PO DAILY PRN PRN Reason: Constipation Sodium Chloride (0.9 % Sodium Chloride Flush 3 Ml Syringe) 3 ml IVFLUSH QSHIFT [facility] Last Admin: 12/16/24 08:28 Dose: 3 ml Documented By: JESSICA Tamsulosin HCl (Tamsulosin Hcl 0.4 Mg Capsule) 0.4 mg PO DAILY [facility] Last Admin: 12/16/24 08:26 Dose: 0.4 mg Documented By: JESSICA Labs 12/12/24 07:02 12/14/24 08:19 Labs: Laboratory Results - last 24 hr 12/15/24 12/15/24 12/15/24 11:06 16:46 21:11 POC Glucose 106 133 H 150 H 12/16/24 07:13 POC Glucose 147 H Assessment and Plan (1) Cocaine abuse: Status: Acute Plan 59M PMH polysubstance dependence, hfref EF 20-25%, DM, vt/vf cardiac arrest 10/2022, cva with left hemiparesis, wheelchair bound, morbid obesity, presented 12/07/2024 to the ED after falling from his wheelchair. Became septic on 12/09/2024 in the ED. chest tightness-reproducible/pleuritic EKG seems NSR, Troponin x1 is 20, another troponin added pending 8 beat episode of nsvt(12/14/24), no new episode electrolytes seems fine cxr-pending cardiology eval added( possible cardiomyopathy -with polysubstance use)-no new acute interevntion. Acute metabolic encephalopathy due to sepsis (not severe) due to urinary tract infection Ceftriaxone, follow up cultures - urine klebsiella, blood negative mental status back to baseline Acute hypoxic respiratory failure Suspect due to sepsis, wean O2 as tolerated Diabetes Basal bolus insulin Polysubstance dependence Addiction eval History of CVA with left hemiparesis Aspirin statin Chronic systolic CHF Monitor for fluid overload DVT prophylaxis with Lovenox Full Code reason for continued hospitalization:placement Quality Stroke Does the patient have a stroke diagnosis?: No VTE Prior VTE?: No VTE Risk Level:: Medical - moderate - high VTE Device Contraindication: Treatment Not Indicated VTE Drug Contraindication: N/A - Med Ordered
[2024-12-16 11:19] LABS: Glucose, Whole Blood 95 mg/dL (60-115)
[2024-12-16 12:00] VITALS: BP 150/75; PULSE 69; RESP 16; TEMP 36.1; O2SAT 98
[2024-12-16 15:16] VITALS: BP 115/60; PULSE 78; RESP 18; TEMP 36.4; O2SAT 97
[2024-12-16 16:10] LABS: Glucose, Whole Blood 117 mg/dL (60-115)
[2024-12-16 19:08] VITALS: BP 122/61; PULSE 82; RESP 18; TEMP 36.2; O2SAT 96
[2024-12-16 20:37] LABS: Glucose, Whole Blood 162 mg/dL (60-115)
[2024-12-16 23:19] VITALS: BP 116/60; PULSE 82; RESP 18; TEMP 36.1; O2SAT 98
[2024-12-17] VITALS (7 sets, daily range): BP systolic 99–150; BP diastolic 60–87; PULSE 73–82; RESP 16–18; TEMP 36–36.8; O2SAT 93–100
[2024-12-17 07:33] LABS: Glucose, Whole Blood 99 mg/dL (60-115)
[2024-12-17] MEDS: 0.9 % Sodium Chloride Flush 3 ML SYRINGE IVFLUSH ×3 (07:37→22:15)
[2024-12-17] MEDS: Aspirin Enteric Coated 81 MG TABLET.DR PO (08:41)
[2024-12-17] MEDS: Nicotine 21 MG PATCH.TD24 TRANSDERMA (08:42)
[2024-12-17] MEDS: methADONE HCl 20 MG/2 ML ORAL.CONC 50 MG PO (08:43)
[2024-12-17] MEDS: Lidocaine 4 % Patch ADH..PATCH 2 PATCH TRANSDERMA (08:43)
--- NOTE | 2024-12-17 09:54 | HO.PM.IMPN ---
Subjective Subjective Date of Service: 12/17/24 Interval History: no new c/o. Review of Systems no overnight events Review of Systems: Yes all other systems are reviewed and are negative Physical Exam Exam: Exam: General: alert, no acute distress Resp: air entry fair,diminished bilateral, no accessory muscles used CVS: S1,S2,RRR GI: soft, non tender, non distended Neuro: motor grossly intact, alert Vital Signs: Vital Signs: Last Vital Signs Temp 97 F 12/17/24 07:13 Pulse 82 12/17/24 07:13 Resp 16 12/17/24 07:13 BP 124/87 12/17/24 07:13 Pulse Ox 100 12/17/24 07:13 O2 Del Method Room Air 12/17/24 07:13 O2 Flow Rate 2 12/10/24 08:00 BMI result Body Mass Index 35.8 Objective Data Active Medications Acetaminophen (Acetaminophen 325 Mg Tablet) 650 mg PO Q6H PRN PRN Reason: Pain, Mild 1-3,fever,headache Last Admin: 12/09/24 21:28 Dose: 650 mg Documented By: PIETRO Aspirin (Aspirin Enteric Coated 81 Mg Tablet.Dr) 81 mg PO DAILY [facility] Last Admin: 12/17/24 08:41 Dose: 81 mg Documented By: JESSICA Atorvastatin Calcium (Atorvastatin Calcium 80 Mg Tablet) 80 mg PO BEDTIME [facility] Last Admin: 12/16/24 21:05 Dose: 80 mg Documented By: CASTILSachin Calcium Carbonate (Calcium Carbonate 750 Mg Tab.Chew) 750 mg PO Q4H PRN PRN Reason: Heartburn Ceftriaxone Sodium (Ceftriaxone Sodium 1 Gm Vial) 1 gm IVPUSH Q24H [facility] Last Admin: 12/17/24 08:43 Dose: 1 gm Documented By: JESSICA Dextrose (Dextrose 50 % 25 Gm/50 Ml Syringe) 25 gm IVPUSH Q15M PRN; Protocol PRN Reason: per Hypoglycemia Standing Ord. Dextrose (Dextrose 50 % 25 Gm/50 Ml Syringe) 25 gm IVPUSH Q15M PRN; Protocol PRN Reason: per Hypoglycemia Standing Ord. Docusate Sodium (Docusate Sodium 100 Mg Capsule) 200 mg PO BEDTIME PRN PRN Reason: Constipation Enoxaparin Sodium (Enoxaparin Sodium 40 Mg/0.4 Ml Syringe) 40 mg SUBCUT Q24H [facility] Last Admin: 12/17/24 08:45 Dose: 40 mg Documented By: JESSICA Gabapentin (Gabapentin 300 Mg Capsule) 300 mg PO TID JAMIE Last Admin: 12/17/24 08:41 Dose: 300 mg Documented By: JESSICA Glucose (Glucose Gel 15 Gm Gel..Gram.) 15 gm PO Q15M PRN; Protocol PRN Reason: per Hypoglycemia Standing Ord. Last Admin: 12/13/24 16:23 Dose: 15 gm Documented By: DEBBIE Glucose (Glucose Gel 15 Gm Gel..Gram.) 15 gm PO Q15M PRN; Protocol PRN Reason: per Hypoglycemia Standing Ord. Hydromorphone HCl (Hydromorphone Hcl 1 Mg/Ml Syringe) 1 mg IVPUSH Q4H PRN; Protocol PRN Reason: Pain, Severe (Pain Scale 7-10) Last Admin: 12/15/24 21:39 Dose: 1 mg Documented By: DEIRDRE Hydroxyzine HCl (Hydroxyzine Hcl 50 Mg Tablet) 50 mg PO BID PRN PRN Reason: Anxiety Last Admin: 12/16/24 22:12 Dose: 50 mg Documented By: DEIRDRE Insulin Glargine (Insulin Glargine,Hum.Rec.Anlog 100 Unit/Ml 10 Ml Vial) 30 unit SUBCUT BID JAMIE On Hold: 12/14/24 08:26 Last Admin: 12/13/24 17:40 Dose: Not Given Documented By: DEBBIE Non-Admin Reason: Physician Held Med Comments: hypoglycemia Insulin Human Lispro (Insulin Lispro 100 Unit/Ml 3 Ml Vial) 0 unit SUBCUT QIDACHS [facility]; Protocol Last Admin: 12/17/24 07:38 Dose: Not Given Documented By: JESSICA Non-Admin Reason: No Insulin Coverage Lidocaine (Lidocaine 4 % Patch Adh..Patch) 2 patch TRANSDERMA DAILY [facility]; Protocol Last Admin: 12/17/24 08:43 Dose: 2 patch Documented By: JESSICA Magnesium Hydroxide (Milk Of Magnesia 30 Ml Oral.Susp) 30 ml PO DAILY PRN PRN Reason: Constipation Last Admin: 12/15/24 21:39 Dose: 30 ml Documented By: DEIRDRE Melatonin (Melatonin 3 Mg Tablet) 6 mg PO BEDTIME PRN PRN Reason: Insomnia Metformin HCl (Metformin Hcl Er 500 Mg Tab.Er.24h) 500 mg PO BID [facility] On Hold: 12/14/24 08:26 Last Admin: 12/13/24 20:46 Dose: Not Given Documented By: GLENROY Non-Admin Reason: Physician Held Med Methadone HCl (Methadone Hcl 20 Mg/2 Ml Oral.Conc) 50 mg PO DAILY@0800 [facility] Last Admin: 12/17/24 08:43 Dose: 50 mg Documented By: JESSICA Co-signed By: KELSEY Nicotine (Nicotine 21 Mg Patch.Td24) 21 mg TRANSDERMA DAILY [facility] Last Admin: 12/17/24 08:42 Dose: 21 mg Documented By: JESSICA Polyethylene Glycol (Polyethylene Glycol 3350 17 Gm Powd.Pack) 17 gm PO DAILY PRN PRN Reason: Constipation Last Admin: 12/16/24 13:04 Dose: 17 gm Documented By: JESSICA Sodium Chloride (0.9 % Sodium Chloride Flush 3 Ml Syringe) 3 ml IVFLUSH QSHIFT [facility] Last Admin: 12/17/24 07:37 Dose: 3 ml Documented By: JESSICA Tamsulosin HCl (Tamsulosin Hcl 0.4 Mg Capsule) 0.4 mg PO DAILY [facility] Last Admin: 12/17/24 08:41 Dose: 0.4 mg Documented By: JESSICA Labs 12/12/24 07:02 12/14/24 08:19 Labs: Laboratory Results - last 24 hr 12/16/24 12/16/24 12/16/24 11:15 16:07 20:33 POC Glucose 95 117 H 162 H 12/17/24 07:21 POC Glucose 99 Assessment and Plan (1) Cocaine abuse: Status: Acute Plan 59M PMH polysubstance dependence, hfref EF 20-25%, DM, vt/vf cardiac arrest 10/2022, cva with left hemiparesis, wheelchair bound, morbid obesity, presented 12/07/2024 to the ED after falling from his wheelchair. Became septic on 12/09/2024 in the ED. chest tightness-reproducible/pleuritic EKG seems NSR, Troponin flat 8 beat episode of nsvt(12/14/24), no new episode electrolytes seems fine cxr-negative cardiology eval added( possible cardiomyopathy -with polysubstance use)-no new acute interevntion. Acute metabolic encephalopathy due to sepsis (not severe) due to urinary tract infection Ceftriaxone, follow up cultures - urine klebsiella, blood negative mental status back to baseline Acute hypoxic respiratory failure Suspect due to sepsis, wean O2 as tolerated Diabetes Basal bolus insulin Polysubstance dependence Addiction eval History of CVA with left hemiparesis Aspirin statin Chronic systolic CHF Monitor for fluid overload DVT prophylaxis with Lovenox Full Code reason for continued hospitalization:placement Quality Stroke Does the patient have a stroke diagnosis?: No VTE Prior VTE?: No VTE Risk Level:: Medical - moderate - high VTE Device Contraindication: Treatment Not Indicated VTE Drug Contraindication: N/A - Med Ordered
[2024-12-17 11:10] LABS: Glucose, Whole Blood 132 mg/dL (60-115)
[2024-12-17 16:21] LABS: Glucose, Whole Blood 150 mg/dL (60-115)
--- NOTE | 2024-12-17 16:28 | PC.NURSE ---
Patient reporting 10/10 pain in right side of abdomen, pt reports no relief from IV Morphine or Oxycodone. Patient moaning and requiring assistance to sit up due to pain. Spoke to MD Luz and informed him of increased pain and minimal to no relief from PRN medications. No new orders for repeat imagining at this time per MD Luz. MD Luz ordered Dilaudid through telephone order and written in [employer] as well as LR at 80 mL/hr via telephone order, order placed.
[2024-12-17 20:36] LABS: Glucose, Whole Blood 155 mg/dL (60-115)
[2024-12-18 03:20] VITALS: BP 138/65; PULSE 69; RESP 17; TEMP 36.3; O2SAT 98
[2024-12-18 07:37] LABS: Glucose, Whole Blood 119 mg/dL (60-115)
[2024-12-18 07:41] VITALS: BP 140/65; PULSE 68; RESP 16; TEMP 36.1; O2SAT 99
[2024-12-18 08:00] VITALS: PULSE 68
[2024-12-18] MEDS: methADONE HCl 20 MG/2 ML ORAL.CONC 50 MG PO (08:46)
[2024-12-18] MEDS: Nicotine 21 MG PATCH.TD24 TRANSDERMA (08:47)
[2024-12-18] MEDS: Aspirin Enteric Coated 81 MG TABLET.DR PO (08:47)
[2024-12-18] MEDS: Milk of Magnesia 30 ML ORAL.SUSP PO (08:47)
[2024-12-18] MEDS: Lidocaine 4 % Patch ADH..PATCH 2 PATCH TRANSDERMA (08:48)
--- NOTE | 2024-12-18 10:54 | PM.DS ---
DS: Providers Provider Date of Service: 12/18/24 Date of admission: 12/09/24 08:52 Date of discharge: 12/18/24 Primary care physician: Silvia Flores MD Consults: 12/07/24 18:47 ED CARE Team Crisis Consult Stat Comment: Reason for consultation: depression, polysubstance 12/08/24 14:57 Consult to Case Management Routine Comment: 12/09/24 10:11 Addiction Medicine Provider Routine Consulting Provider: Addiction Covering Reason for consultation: opiates, cocaine 12/12/24 10:39 Inpt CARE Team Crisis Consult Routine Comment: Reason for consultation: medically stable, came from ED as psych bedsearch for depression/?SI 12/14/24 18:39 Consult to Cardiology Routine Consulting Provider: [facility] Reason for consultation: chest tightness/nsvt Has provider been notified: No Attending physician on discharge: Rachael Hernandez Discharging clinician: Rachael Hernandez DS: Diagnosis Discharge Diagnosis (1) Cocaine abuse: Status: Acute DS: Summary Hospital Course Hospital Course: from initial hpi: 59M PMH polysubstance dependence, hfref EF 20-25%, DM, vt/vf cardiac arrest 10/2022, cva with left hemiparesis, wheelchair bound, morbid obesity, presented 12/07/2024 to the ED after falling from his wheelchair. Patient was being evaluated for worsening depression and anxiety and increased use of heroin and cocaine was trying to get admitted to [facility] when he fell out of his wheelchair onto his left shoulder. Was sent to [place] ER ruled out for trauma and continued to wait for psychiatric bed and early a.m. 12/09/24 noted to be febrile with worsening mental status consistent with sepsis. Patient unable to provide history. UA noted to be positive. Also noted to be hypoxic. hospital course: Patient was admitted for acute metabolic encephalopathy due to sepsis due to urinary tract infection. Was treated ceftriaxone and sepsis and mental status resolved. Urine culture grew Klebsiella, blood culture was negative. On discharge will continue 1 more days of Ceftin. For acute hypoxic respiratory failure this was due to sepsis and resolved. For diabetes was continued on basal bolus insulin. For polysubstance dependence was seen by Addiction who provided patient with methadone. For history of CVA with left hemiparesis was continued on aspirin statin. For chronic systolic CHF patient remained euvolemic. For depression and anxiety patient was seen by care team and cleared, will be discharged to snf, expected to require less than 30 days. Had episode of chest tightness : seen by cardiology :Tox screen positive for opiates, fentanyl, cocaine, marijuana.Last echocardiogram with LVEF of 20 25%. Severe global hypokinesis and basal inferior akinesis. Cardiac catheterization 2022-mild LAD disease. Moderate disease in the OM1/RCA.High sensitivity troponin levels are 36, 20 in 21. Cardiac BNP 141,Telemetry shows sinus rhythm and one episode of monomorphic NSVT, 8 beats. Overall, chest pain itself seems noncardiac and does not need any specific workup for that. With regard to the cardiomyopathy/coronary disease, main recommendation would be to abstain from substance abuse but I am not clear if he will do that as it has been a long-term problem.He does not follow up in the clinic either.Hence at least continue the usual home medications of aspirin and statins.Because of the cardiomyopathy and ongoing substance abuse, high risk of . currently asymptomatic,strongly advised to abstain for drug use , consider outpatient follow up with cardiology and pcp. total assessment /plan coodiantion time spent in 45 min. Time Attestation Total time managing care of this patient today: 45 mintues. Discharge Coordination Time (in mins): 45 min Quality: Safe Use of Opioids Does Pt have an Active Cancer Diagnosis on the Problem List?: No Quality: Stroke Does the patient have a stroke diagnosis?: No Physical Exam Exam: Exam: General: alert, no acute distress Resp: air entry fair,diminished bilateral, no accessory muscles used CVS: S1,S2,RRR GI: soft, non tender, non distended Neuro: motor grossly intact, alert Vital Signs: Vital Signs: Last Vital Signs Temp 96.9 F 12/18/24 07:41 Pulse 68 12/18/24 07:41 Resp 16 12/18/24 07:41 BP 140/65 H 12/18/24 07:41 Pulse Ox 99 12/18/24 07:41 O2 Del Method Room Air 12/18/24 07:41 O2 Flow Rate 2 12/10/24 08:00 BMI result Body Mass Index 35.8 DS: Data Data Completed and Pending Completed studies during hospitalization [Text1]: Procedures Drainage of Left Hand Bursa and Ligament, Open Approach (11/12/23) Labs on day of discharge: Laboratory Results - last 24 hr 12/17/24 12/17/24 12/17/24 11:02 16:13 20:32 POC Glucose 132 H 150 H 155 H 12/18/24 07:33 POC Glucose 119 H Imaging Chest x-ray: Radiologist's impression: ITS Impressions Chest X-Ray 12/14/24 16:14 IMPRESSION: No acute cardiopulmonary abnormality. Discharge Plan Discharge Anticipated Discharge Date/Time: 12/12/24 10:43 Patient Disposition: Xfer SNF Discharge Diagnosis: sepsis, uti Referrals: [facility] [Provider Group] Referral Note: left shoulder pain [facility] [Outside] - 1 Week Silvia Flores MD [Primary Care Provider, Internal Medicine] - 1 Week Discharge Medications: New cefuroxime axetil 500 mg tablet 500 mg PO BID Qty: 2 0RF bisacodyl [Gentle Laxative (bisacodyl)] 10 mg Suppository 10 mg WA BEDTIME Qty: 1 0RF Continued insulin aspart U-100 100 unit/mL (3 mL) insulin pen 5 sliding scale dose SUBCUT TID Rx Instructions: 5 units TID with meals plus sliding scale as follows: BS 150-200 add 2 units BS 201-250 add 4 units BS 251-300 add 6 units BS 301-350 add 8 units BS > 350 add 10 units and call aspirin 81 mg tablet,delayed release (DR/EC) 81 mg PO DAILY insulin glargine [Lantus Solostar U-100 Insulin] 100 unit/mL (3 mL) insulin pen 30 unit subcut BID atorvastatin 80 mg tablet 80 mg PO BEDTIME hydroxyzine HCl 50 mg tablet 50 mg PO BID PRN (Reason: Anxiety) tamsulosin 0.4 mg capsule 0.4 mg PO DAILY gabapentin 300 mg capsule 300 mg PO TID metformin 500 mg tablet extended release 24 hr 500 mg PO BID losartan 50 mg tablet 50 mg PO DAILY Protocol: Hold for SBP< HOLD for SBP < : 90 docusate sodium [Colace] 100 mg capsule 200 mg PO BEDTIME PRN (Reason: Constipation) polyethylene glycol 3350 [Miralax] 17 gram/dose powder 17 g PO DAILY PRN (Reason: Constipation) Discharge Orders: Discharge Order (Routine); Ordered 12/18/24 Ordered By: Rachael Hernandez Diet: Advance to usual diet Activity on Discharge: As tolerated Stand Alone Forms: Patient Portal Discharge page Print Language: Yakut Care Plan Goals: recovery Health Concerns: uti Plan of Treatment: 1 more days ceftin. continue bowel regimen. Assessment: see above Patient Instructions: Urinary Tract Infection in Men (DC), Shoulder Pain (ED)
[2024-12-18 11:34] VITALS: BP 156/76; PULSE 71; RESP 16; TEMP 36.1; O2SAT 99
[2024-12-18 12:29] LABS: Glucose, Whole Blood 140 mg/dL (60-115)
--- NOTE | 2024-12-18 12:35 | MHC.RECOVRN ---
Per staff at [facility], their medical team has approved David for guest methadone dosing starting tomorrow morning 12/19/2024.
--- NOTE | 2024-12-18 15:11 | MHC.CM.PN ---
Pt is medically cleared for discharge to [facility] today via BLS/[facility] at 4pm.
[2024-12-18 15:15] VITALS: BP 155/71; PULSE 74; RESP 20; TEMP 36.4; O2SAT 98
--- NOTE | 2024-12-18 15:24 | PC.NURSE ---
Attempted to call in nurse to nurse report to [facility]. Transferred to intake department with no answer. manager transplant Twila Morillo made aware.
[2024-12-18 15:25] VITALS: BP 127/59; PULSE 71; RESP 20; TEMP 36.3; O2SAT 97
[2024-12-18 16:22] LABS: Glucose, Whole Blood 140 mg/dL (60-115)
== END 2024-12-18 16:38 | disposition skilled nursing facility (03) | DRG 720 ==
LOC: HO.ED 12-09 09:14 → HO.EDOVER 12-09 09:36 → HO.IMC 12-10 05:12 → HO.S3 12-15 16:43
PROVIDERS: Emergency Medicine Emergency Medical Services; Physician Assistant; Physician Assistant Medical; Registered Nurse Emergency; Admitting Provider Internal Medicine; Emergency Provider Internal Medicine; PCP Family Medicine; Visit Provider Internal Medicine
DX: A41.9 Sepsis, unspecified organism (principal); J96.01 Acute respiratory failure with hypoxia; G93.41 Metabolic encephalopathy; I50.22 Chronic systolic (congestive) heart failure; I95.9 Hypotension, unspecified; I42.8 Other cardiomyopathies; I47.20 Ventricular tachycardia, unspecified; Z86.74 Personal history of sudden cardiac arrest; I69.354 Hemiplegia and hemiparesis following cerebral infarction affecting left non-dominant side; E86.0 Dehydration; W05.0XXA Fall from non-moving wheelchair, initial encounter; F19.20 Other psychoactive substance dependence, uncomplicated; E66.01 Morbid (severe) obesity due to excess calories; Z68.35 Body mass index [BMI] 35.0-35.9, adult; N39.0 Urinary tract infection, site not specified; F41.9 Anxiety disorder, unspecified; F32.A Depression, unspecified; E11.9 Type 2 diabetes mellitus without complications; B96.1 Klebsiella pneumoniae [K. pneumoniae] as the cause of diseases classified elsewhere; Z20.822 Contact with and (suspected) exposure to COVID-19; Z79.4 Long term (current) use of insulin; Z99.3 Dependence on wheelchair; Z79.82 Long term (current) use of aspirin; Z79.84 Long term (current) use of oral hypoglycemic drugs; Z79.899 Other long term (current) drug therapy
CPT/HCPCS: 36415; 70450; 71045; 73030; 80048; 80076; 80307; 81001; 82140; 82565; 82803; 82947; 83605; 83735; 83880; 84484; 85025; 85027; 87040; 87086; 87088; 87186; 87637; 93005; 94640; 97162; 97530; 99285; J0131; J0692; J0696; J1171; J1650; S9485

== ENCOUNTER → 2024-12-07 17:16 | Outpatient (BNV) | payer MEDICAID, SELFPAY | PROVIDERS: Emergency Provider Internal Medicine; Visit Provider Nuclear Medicine | DX: M19.012 Primary osteoarthritis, left shoulder (principal) | CPT/HCPCS: 73030 ==

== ENCOUNTER → 2024-12-07 18:21 | Outpatient (BNV) | payer MEDICAID, SELFPAY | PROVIDERS: Emergency Provider Internal Medicine; Visit Provider Internal Medicine Cardiovascular Disease | DX: I49.3 Ventricular premature depolarization (principal); I49.9 Cardiac arrhythmia, unspecified; I45.4 Nonspecific intraventricular block | CPT/HCPCS: 93010 ==

== ENCOUNTER → 2024-12-08 17:48 | Outpatient (BNV) | payer MEDICAID, SELFPAY | PROVIDERS: Emergency Provider Internal Medicine; Visit Provider Radiology Diagnostic Radiology | DX: R53.83 Other fatigue (principal) | CPT/HCPCS: 70450 ==

== ENCOUNTER → 2024-12-09 07:23 | Outpatient (BNV) | payer MEDICAID, SELFPAY | PROVIDERS: Emergency Provider Internal Medicine; Visit Provider Radiology Vascular & Interventional Radiology | DX: R05.9 Cough, unspecified (principal); R06.02 Shortness of breath | CPT/HCPCS: 71045 ==

== ENCOUNTER → 2024-12-09 07:41 | Outpatient (BNV) | payer MEDICAID, SELFPAY | PROVIDERS: Admitting Provider Internal Medicine; Emergency Provider Internal Medicine; Visit Provider Internal Medicine Cardiovascular Disease | DX: I49.3 Ventricular premature depolarization (principal) | CPT/HCPCS: 93010 ==

== ENCOUNTER 2024-12-09 08:52 | Outpatient (BNV) | payer MEDICAID, SELFPAY | END 2024-12-14 16:14 | PROVIDERS: Admitting Provider Internal Medicine; Emergency Provider Internal Medicine; PCP Family Medicine; Visit Provider Radiology Diagnostic Radiology | DX: R07.9 Chest pain, unspecified (principal) | CPT/HCPCS: 71045 ==

== ENCOUNTER 2024-12-09 08:52 | Outpatient (BNV) | payer MEDICAID, SELFPAY | END 2024-12-14 15:46 | PROVIDERS: Admitting Provider Internal Medicine; Emergency Provider Internal Medicine; PCP Family Medicine; Visit Provider Internal Medicine | DX: I45.4 Nonspecific intraventricular block (principal) | CPT/HCPCS: 93010 ==

== ENCOUNTER → 2024-12-09 08:52 | Outpatient (BNV) | payer MEDICAID, SELFPAY | PROVIDERS: Admitting Provider Internal Medicine; Emergency Provider Internal Medicine; PCP Family Medicine; Visit Provider Internal Medicine | DX: I42.8 Other cardiomyopathies (principal); I25.10 Atherosclerotic heart disease of native coronary artery without angina pectoris; F19.10 Other psychoactive substance abuse, uncomplicated | CPT/HCPCS: 99223 ==

== ENCOUNTER → 2024-12-09 08:52 | Outpatient (BNV) | payer MEDICAID, SELFPAY | PROVIDERS: Admitting Provider Internal Medicine; Emergency Provider Internal Medicine; Visit Provider Internal Medicine | DX: F14.10 Cocaine abuse, uncomplicated (principal) | CPT/HCPCS: 99223; 99231; 99232 ==

== ENCOUNTER → 2024-12-09 08:52 | Outpatient (BNV) | payer OTHER, SELFPAY | PROVIDERS: Admitting Provider Internal Medicine; Emergency Provider Internal Medicine; Visit Provider Nurse Practitioner Psychiatric/Mental Health | DX: F11.90 Opioid use, unspecified, uncomplicated (principal) | CPT/HCPCS: 99231; 99232 ==